=== PATIENT | male | born 1955 | race African-American/Black ===

== ENCOUNTER 2017-08-31 18:36 | Inpatient (IN) | payer MEDICAID ==
[~2017-08-31] VITALS: Ht 190.5 cm; Wt 145.1 kg
[2017-08-31 00:30] VITALS: BP 164/86
[2017-08-31 19:30] VITALS: BP 125/77
[2017-08-31 20:17] LABS: BASOPHILS % (AUTO) 2.5 % (0.0-2.0); EOSINOPHILS % (AUTO) 15.1 % (0.0-3.0); HEMATOCRIT 47.8 % (42.0-52.0); HEMOGLOBIN 14.1 G/DL (14.2-18.0); LYMPHOCYTES % (AUTO) 28.8 % (20.0-45.0); MEAN CORPUSCULAR VOLUME 82 FL (80-99); MONOCYTES % (AUTO) 10.7 % (1.0-10.0); NEUTROPHILS % (AUTO) 42.9 % (45.0-75.0); PLATELET COUNT 219 K/UL (150-450); RED BLOOD COUNT 5.81 M/UL (4.70-6.10); RED CELL DISTRIBUTION WIDTH 14.3 % (11.6-14.8); WHITE BLOOD COUNT 6.3 K/UL (4.8-10.8)
[2017-08-31 20:30] VITALS: BP 126/70
[2017-08-31] MEDS ORDERED: ZOFRAN ODT4 MG ORAL (20:39)
[2017-08-31 21:00] LABS: ANION GAP 11 mmol/L (5-15); BLOOD UREA NITROGEN 48 mg/dL (7-18); CALCIUM 9.6 MG/DL (8.5-10.1); CARBON DIOXIDE 30 MMOL/L (21-32); CHLORIDE 94 MMOL/L (98-107); POTASSIUM 4.6 MMOL/L (3.5-5.1); SODIUM 135 MMOL/L (136-145)
[2017-08-31 21:08] LABS: ALANINE AMINOTRANSFERASE 27 U/L (12-78); ALBUMIN 3.5 G/DL (3.4-5.0); ALBUMIN/GLOBULIN RATIO 0.7 (1.0-2.7); ALKALINE PHOSPHATASE 86 U/L (46-116); ASPARTATE AMINO TRANSFERASE 26 U/L (15-37); BILIRUBIN,TOTAL 0.4 MG/DL (0.2-1.0)
--- NOTE | 2017-08-31 21:17 | Emergency Room Report ---
History of Present Illness General Chief Complaint: General Complaint Source: Patient Present Illness HPI 62-year-old male presents with intractable nausea vomiting. For 3-4 days Pt reports n/v >5 episodes of nbnb vomiting, no diarrhea. no constipation Denies fever, chills. Had a history of appendectomy No hx of endoscopies/colonoscopies. States that he went to [facility] yesterday he was seen in ER and was discharged even though patient states that he kept having nausea and vomiting Allergies: Coded Allergies: PENICILLINS (Verified Allergy, Unknown, 08/31/17) TRAMADOL (Verified Allergy, Unknown, 08/31/17) Patient History Past Medical History: see triage record Past Surgical History: none Pertinent Family History: none Reviewed Nursing Documentation: PMH: Agreed, PSxH: Agreed Nursing Documentation-PMH Past Medical History: No History, Except For Hx Hypertension: Yes Hx Asthma: Yes Review of Systems All Other Systems: negative except mentioned in HPI Physical Exam Vital Signs Date Time Temp Pulse Resp B/P (MAP) Pulse Ox O2 Delivery O2 Flow Rate FiO2 08/31/17 18:46 98.1 76 18 125/77 96 Room Air Sp02 EP Interpretation: reviewed, normal General Appearance: alert, GCS 15, non-toxic, moderate distress Head: normocephalic, atraumatic Eyes: bilateral eye normal inspection, bilateral eye PERRL, bilateral eye EOMI ENT: normal ENT inspection, normal pharynx, normal voice, moist mucus membranes Neck: normal inspection, full range of motion, supple Respiratory: normal inspection, lungs clear, normal breath sounds, no respiratory distress, no retraction, no wheezing, speaking full sentences, chest symmetrical Cardiovascular #1: normal inspection, regular rate, rhythm, no edema, normal capillary refill Cardiovascular #2: 2+ radial (R), 2+ radial (L) Gastrointestinal: normal inspection, non tender, soft, non-distended, no guarding Genitourinary: no CVA tenderness Musculoskeletal: normal inspection, back normal, normal range of motion, non- tender Neurologic: normal inspection, alert, oriented x3, responsive, motor strength/ tone normal, sensory intact, normal gait, speech normal Psychiatric: normal inspection, judgement/insight normal, memory normal Skin: normal inspection, normal color, no rash, warm/dry, well hydrated, normal turgor Medical Decision Making Diagnostic Impression: Primary Impression: Intractable nausea and vomiting Additional Impressions: Pancreatitis Renal failure ER Course 62-year-old male with abdominal pain nausea and vomiting Differential Diagnosis: Gastritis, gastroenteritis, pancreatitis, cholecystitis, appendicitis, diverticulitis, UTI/pyelo At this time abdomen is soft nontender, not likely to have acute intra- abdominal surgical pathology, will hold CT for now. Plan: Basic labs, ua, ekg Pepcid, maalox, pain control, IVF ER course: Patient has remained HD stable during ED stay. Given Zofran and fluids Continue some nausea Increasing lipase, 495, when discharged [facility] it was 70 Renal failure Disposition: Patient will be admitted to med surg. DW Dr Finch Please note that this Emergency Department Report was dictated using [employer] mixing machine operator technology software, occasionally this can lead to erroneous entry secondary to interpretation by the dictation equipment EKG Diagnostic Results EP Interpretation: Yes Rate: normal Rhythm: NSR ST Segments: No acute changes ASA given to patient: No Laboratory Tests Test 08/31/17 19:50 White Blood Count 6.3 K/UL (4.8-10.8) Red Blood Count 5.81 M/UL (4.70-6.10) Hemoglobin 14.1 G/DL (14.2-18.0) L Hematocrit 47.8 % (42.0-52.0) Mean Corpuscular Volume 82 FL (80-99) Mean Corpuscular Hemoglobin 24.3 PG (27.0-31.0) L Mean Corpuscular Hemoglobin Concent 29.6 G/DL (32.0-36.0) L Red Cell Distribution Width 14.3 % (11.6-14.8) Platelet Count 219 K/UL (150-450) Mean Platelet Volume 7.6 FL (6.5-10.1) Neutrophils (%) (Auto) 42.9 % (45.0-75.0) L Lymphocytes (%) (Auto) 28.8 % (20.0-45.0) Monocytes (%) (Auto) 10.7 % (1.0-10.0) H Eosinophils (%) (Auto) 15.1 % (0.0-3.0) H Basophils (%) (Auto) 2.5 % (0.0-2.0) H Sodium Level 135 MMOL/L (136-145) L Potassium Level 4.6 MMOL/L (3.5-5.1) Chloride Level 94 MMOL/L (98-107) L Carbon Dioxide Level 30 MMOL/L (21-32) Anion Gap 11 mmol/L (5-15) Blood Urea Nitrogen 48 mg/dL (7-18) H Creatinine 3.0 MG/DL (0.55-1.30) H Estimate Glomerular Filtration Rate 25.7 mL/min (>60) Glucose Level 109 MG/DL (74-106) H Calcium Level 9.6 MG/DL (8.5-10.1) Total Bilirubin 0.4 MG/DL (0.2-1.0) Aspartate Amino Transferase (AST) 26 U/L (15-37) Alanine Aminotransferase (ALT) 27 U/L (12-78) Alkaline Phosphatase 86 U/L (46-116) Troponin I 0.013 ng/mL (0.000-0.056) Total Protein 8.8 G/DL (6.4-8.2) H Albumin 3.5 G/DL (3.4-5.0) Globulin 5.3 g/dL Albumin/Globulin Ratio 0.7 (1.0-2.7) L Lipase 495 U/L (73-393) H Last Vital Signs Date Time Temp Pulse Resp B/P (MAP) Pulse Ox O2 Delivery O2 Flow Rate FiO2 08/31/17 18:46 98.1 76 18 125/77 96 Room Air Disposition: ADMITTED INPATIENT Condition: Serious Scripts Ondansetron Odt* (ZOFRAN ODT*) 4 Mg Tab.rapdis 4 MG ORAL Q6H Y for Nausea & Vomiting, #15 TAB 0 Refills Prov: Roque Marquis M.D. 08/31/17 Patient Instructions: Nausea and Vomiting, Adult, [id number] Additional Instructions: PLEASE FOLLOW UP WITH GASTROENTEROLOGY IN 1 WEEK Roque Marquis M.D. Aug 31, 2017 21:17
[2017-08-31 22:30] VITALS: BP 122/70
[2017-08-31 23:12] LABS: APPEARANCE,URINE CLEAR; BILIRUBIN, URINE NEGATIVE (NEGATIVE); COLOR,URINE PALE YELLOW; GLUCOSE, URINE (UA) NEGATIVE (NEGATIVE); KETONES,URINE 1+ (NEGATIVE); LEUKOCYTE ESTERASE ,URINE NEGATIVE (NEGATIVE); NITRITE,URINE NEGATIVE (NEGATIVE); PH,URINE 5 (4.5-8.0); PROTEIN,URINE 2+ (NEGATIVE); UROBILINOGEN,URINE NORMAL MG/DL (0.0-1.0)
[2017-08-31] MEDS ORDERED: BENAZEPRIL HCL10 MG ORAL (23:31)
[2017-08-31] MEDS ORDERED: SIMVASTATIN10 MG ORAL (23:31)
[2017-08-31] MEDS ORDERED: ASPIRIN81 MG ORAL (23:31)
[2017-08-31] MEDS ORDERED: SINGULAIR10 MG ORAL (23:31)
[2017-08-31] MEDS ORDERED: PERCOCET 5-3251 EACH ORAL (23:31)
[2017-09-01 00:05] VITALS: BP 126/72
[2017-09-01] MEDS ORDERED: HYDROmorphone 1mg/ml Carpuject IVP PRN (01:30)
[2017-09-01] MEDS: D5 1/2NS 1,000 ML IV SCH ×3 (02:31→18:06)
[2017-09-01 04:00] VITALS: BP 168/85
[2017-09-01] MEDS ORDERED: Piperacillin/Tazobactam 3.375 GM in D5W 110 ML IVPB SCH (06:00)
[2017-09-01 08:00] VITALS: BP 151/59
[2017-09-01 08:28] LABS: BASOPHILS % (AUTO) 2.1 % (0.0-2.0); EOSINOPHILS % (AUTO) 16.8 % (0.0-3.0); HEMATOCRIT 40.1 % (42.0-52.0); HEMOGLOBIN 12.8 G/DL (14.2-18.0); LYMPHOCYTES % (AUTO) 35.4 % (20.0-45.0); MEAN CORPUSCULAR VOLUME 81 FL (80-99); MONOCYTES % (AUTO) 9.4 % (1.0-10.0); NEUTROPHILS % (AUTO) 36.2 % (45.0-75.0); PLATELET COUNT 198 K/UL (150-450); RED BLOOD COUNT 4.95 M/UL (4.70-6.10); RED CELL DISTRIBUTION WIDTH 14.6 % (11.6-14.8); WHITE BLOOD COUNT 5.5 K/UL (4.8-10.8)
[2017-09-01 08:49] LABS: ALANINE AMINOTRANSFERASE 22 U/L (12-78); ALBUMIN 3.1 G/DL (3.4-5.0); ALBUMIN/GLOBULIN RATIO 0.6 (1.0-2.7); ALKALINE PHOSPHATASE 83 U/L (46-116); AMYLASE 275 U/L (25-115); ASPARTATE AMINO TRANSFERASE 23 U/L (15-37); BILIRUBIN,TOTAL 0.3 MG/DL (0.2-1.0); BLOOD UREA NITROGEN 35 mg/dL (7-18); CALCIUM 9.4 MG/DL (8.5-10.1); CARBON DIOXIDE 30 MMOL/L (21-32); CHLORIDE 99 MMOL/L (98-107); CREATININE 1.6 MG/DL (0.55-1.30); POTASSIUM 4.4 MMOL/L (3.5-5.1)
[2017-09-01 08:54] LABS: SODIUM 136 MMOL/L (136-145)
[2017-09-01] MEDS: Heparin 5000 units/ml inj SUBQ SCH ×2 (09:00→21:00)
[2017-09-01] MEDS: Aspirin Baby 81mg ORAL SCH (11:54)
[2017-09-01] MEDS: Benazepril 10mg tab ORAL SCH (11:54)
[2017-09-01 12:00] VITALS: BP 132/65
--- NOTE | 2017-09-01 12:56 | Diagnostic Imaging Report ---
Indication: Abdominal pain Technique: CT of the abdomen and pelvis utilizing automated exposure control without intravenous contrast. CT dose: Total DLP 1121.62 mGycm; CTDI vol 19.51 mGy Comparison: None Findings: Note that evaluation of the abdominal and pelvic viscera is limited without the use of intravenous contrast. Within these limitations, the following observations are made: Multiple subcentimeter nodular densities/tree-in-bud opacification noted in the lower lungs, most dense in the right lower lobe. Multiple oval subcentimeter nodules noted along the fissure likely representing intrapulmonary lymph nodes. There is no pleural effusion or pneumothorax. No dense airspace consolidation identified. Heart size within normal limits. No pericardial effusion. Mild coronary arterial calcification seen. Noncontrast evaluation of the liver, gallbladder, spleen and adrenal glands is grossly unremarkable. The pancreas is uniform in attenuation. No peripancreatic fluid collection is appreciated. Multiple prominent lymph nodes noted in the retroperitoneum and the region of the celiac axis, the largest measuring up to 1.1 cm in short axis. These are thought to be reactive in etiology. Kidneys are symmetric in size. No evidence of urinary tract stones or hydronephrosis bilaterally. Bladder is decompressed, limiting its evaluation. Prostate is not enlarged. There is no bowel obstruction. No free intraperitoneal fluid or air is identified. There may be slight thickening of some proximal small bowel loops. No appreciable perienteric inflammatory change. Abdominal aorta is normal in caliber with scattered atherosclerotic calcifications. Mild degenerative changes noted in the thoracolumbar spine with minimal anterolisthesis of L4 on L5. Impression: History of pancreatitis with elevation of the pancreatic enzymes noted in the electronic medical record. No definite pancreatic inflammatory change seen on noncontrast CT. Please note contrast enhanced CT would provide a better assessment of the pancreas. Pancreatic attenuation is uniform. No peripancreatic fluid collection. Prominent retroperitoneal and peripancreatic lymph nodes, largest measuring up to 1.2 cm in short axis. Mild thickening of small bowel loops adjacent to the pancreas. These findings may be reactive given history of pancreatitis. No evidence of bowel obstruction. No evidence of cholelithiasis on CT. Subcentimeter nodular densities with suggestion of tree-in-bud opacification in the lower lungs, most pronounced in the right lower lobe. These findings are likely infectious or inflammatory etiology. Given history of vomiting, aspiration should be considered. No dense consolidation. Additional findings as above. The CT scanner at [facility] is accredited by the [employer] and the scans are performed using protocols designed to limit radiation exposure to as low as reasonably achievable to attain images of sufficient resolution adequate for diagnostic evaluation.
[2017-09-01 16:00] VITALS: BP 129/74
--- NOTE | 2017-09-01 16:45 | History and Physical Report ---
DATE OF ADMISSION: 08/31/2017 CHIEF COMPLAINT: Pancreatitis. HISTORY OF PRESENT ILLNESS: The patient is a 62-year-old male, has a history of hypertension, who was admitted with complaints of intractable abdominal pain, nausea, and vomiting. According to the patient, he was well until a week prior to admission when developed worsening abdominal pain. He actually presented to an outside hospital. He states he had an x-ray that was negative. He was sent home. He continued to have abdominal pain, intermittent nausea and vomiting. On evaluation in the emergency room here, his vitals were stable. Labs showed acute renal failure with a creatinine of 3. He also has an elevated lipase. In light of the patient's persistent nausea, vomiting, and acute renal failure, he is now admitted for further evaluation and care. PAST MEDICAL HISTORY: As above. PAST SURGICAL HISTORY: Includes ankle surgery. CURRENT MEDICATIONS: Reconciled and reviewed. ALLERGIES: and tramadol. FAMILY HISTORY: Noncontributory. SOCIAL HISTORY: There is no known history of tobacco, ethanol, or drugs. REVIEW OF SYSTEMS: Negative except for abdominal pain, nausea, and vomiting. PHYSICAL EXAMINATION: VITAL SIGNS: Temperature 98 degrees, blood pressure 168/85, pulse 60, and respirations 20. GENERAL: The patient is well developed, no apparent distress. HEART: Regular rate and rhythm. LUNGS: Clear. ABDOMEN: Soft, nontender, and nondistended. EXTREMITIES: Without clubbing, cyanosis, or edema. LABORATORY DATA: Sodium 135, potassium 4.6, creatinine was 3, and BUN 48. Lipase is 495. ASSESSMENT: This is an elderly male, admitted with complaints of abdominal pain possibly secondary to pancreatitis, although enzymes did not markedly elevated. PLAN: IV fluids, NPO, IV hydration, check a CT scan of the abdomen and a renal ultrasound, hydration, monitor renal function. We will reassess for p.o. once tests are reviewed. Omid Finch M.D. DR: MORAIMA JOB#: [id number] CC:
[2017-09-01 20:00] VITALS: BP 137/55
[2017-09-01] MEDS: Montelukast 10mg tablet ORAL SCH (20:54)
[2017-09-02] VITALS: BP 146/90
[2017-09-02] MEDS: D5 1/2NS 1,000 ML IV SCH ×3 (01:41→20:59)
[2017-09-02 04:00] VITALS: BP 133/84
[2017-09-02 08:45] VITALS: BP 144/73
--- NOTE | 2017-09-02 08:50 | General Progress Note ---
Assessment/Plan Problem List: (1) Pancreatitis ICD Codes: K85.90 - Acute pancreatitis without necrosis or infection, unspecified SNOMED: 96571285 (2) Renal failure ICD Codes: N19 - Unspecified kidney failure SNOMED: 07805430 Status: stable, progressing Assessment/Plan ivf po trial monitor labs Subjective ROS Limited/Unobtainable: No Constitutional: Reports: malaise, weakness HEENT: Reports: no symptoms Cardiovascular: Reports: no symptoms Respiratory: Reports: no symptoms Gastrointestinal/Abdominal: Reports: nausea Genitourinary: Reports: no symptoms Neurologic/Psychiatric: Reports: pre-existing deficit Endocrine: Reports: no symptoms Hematologic/Lymphatic: Reports: no symptoms Allergies: Coded Allergies: PENICILLINS (Verified Allergy, Unknown, 08/31/17) TRAMADOL (Verified Allergy, Unknown, 08/31/17) All Systems: reviewed and negative except above Subjective mild nausea. no abd pain. ct negative for pancreatitis. some small bowel thickening- ?reactive due to pancreatitis Objective Last 24 Hour Vital Signs Date Time Temp Pulse Resp B/P (MAP) Pulse Ox O2 Delivery O2 Flow Rate FiO2 09/02/17 04:00 98.2 62 21 133/84 97 09/02/17 00:00 97.5 51 22 146/90 97 09/01/17 20:00 98.3 57 21 137/55 95 09/01/17 16:00 97.5 59 20 129/74 100 Room Air 09/01/17 14:30 97.5 09/01/17 12:00 97.5 64 18 132/65 98 Room Air 09/01/17 11:54 168/85 Intake and Output 09/01/17 09/02/17 19:00 07:00 Intake Total 750 ml 1375 ml Output Total 1000 ml Balance 750 ml 375 ml Intake IV Total 750 ml 1375 ml Output Urine Total 1000 ml # Bowel Movements 1 Height (Feet): 6 Height (Inches): 3.00 Weight (Pounds): 320 General Appearance: WD/WN Neck: supple Cardiovascular: regular rhythm Respiratory/Chest: lungs clear Abdomen: normal bowel sounds, non tender, soft, no organomegaly Neurologic: distribution lead II-XII grossly normal, no motor/sensory deficits, alert, oriented x 3 JERRY GUAMAN Sep 02, 2017 08:50
[2017-09-02] MEDS: Heparin 5000 units/ml inj SUBQ SCH ×2 (09:00→20:59)
[2017-09-02] MEDS: Aspirin Baby 81mg ORAL SCH (10:01)
[2017-09-02] MEDS: Benazepril 10mg tab ORAL SCH (10:01)
[2017-09-02 12:00] VITALS: BP 138/73
[2017-09-02 16:00] VITALS: BP 131/53
[2017-09-02 20:00] VITALS: BP 162/70
[2017-09-02] MEDS: Montelukast 10mg tablet ORAL SCH (20:57)
[2017-09-03] VITALS: BP 140/76
[2017-09-03 04:00] VITALS: BP 150/79
[2017-09-03 08:00] VITALS: BP 188/94
[2017-09-03] MEDS: Heparin 5000 units/ml inj SUBQ SCH (09:00)
[2017-09-03] MEDS: Aspirin Baby 81mg ORAL SCH (09:57)
[2017-09-03] MEDS: Benazepril 10mg tab ORAL SCH (09:57)
[2017-09-03 10:13] LABS: ALANINE AMINOTRANSFERASE 20 U/L (12-78); ALBUMIN 2.8 G/DL (3.4-5.0); ALBUMIN/GLOBULIN RATIO 0.6 (1.0-2.7); ALKALINE PHOSPHATASE 73 U/L (46-116); ANION GAP 9 mmol/L (5-15); ASPARTATE AMINO TRANSFERASE 20 U/L (15-37); BILIRUBIN,TOTAL 0.3 MG/DL (0.2-1.0); BLOOD UREA NITROGEN 10 mg/dL (7-18); CARBON DIOXIDE 28 MMOL/L (21-32); CHLORIDE 103 MMOL/L (98-107); POTASSIUM 3.9 MMOL/L (3.5-5.1); SODIUM 140 MMOL/L (136-145)
--- NOTE | 2017-09-03 10:31 | Diagnostic Imaging Report ---
Indication:Elevated Bun and Creatinine. Technique: Grayscale and duplex Doppler imaging of the kidneys performed. Comparison: None Findings: The size, contour, and echogenicity of both kidneys are within normal limits. Right kidney is about 19. Left kidney is about 11 cm in length. There is no hydronephrosis. The IVC and urinary bladder are unremarkable. Impression: Negative study
[2017-09-03] MEDS ORDERED: NORVASC5 MG ORAL (11:30)
[2017-09-03 12:00] VITALS: BP 183/76
[2017-09-03] MEDS ORDERED: D5 1/2NS 1000ml IV ONE (14:54)
--- NOTE | 2017-09-04 04:00 | Discharge Summary ---
DATE OF ADMISSION: 08/31/2017 DATE OF DISCHARGE: 09/03/2017 ADMISSION DIAGNOSES: 1. Pancreatitis. 2. Intractable nausea and vomiting. 3. Hypertension. 4. Acute renal failure. DISCHARGE DIAGNOSES: 1. Pancreatitis. 2. Intractable nausea and vomiting. 3. Hypertension. 4. Acute renal failure. BRIEF HISTORY: The patient is a pleasant male admitted with complaints of intractable nausea and vomiting. He was diagnosed with pancreatitis. He had acute renal failure. He was hydrated. He was initially kept NPO. His lipase normalized. His abdominal pain resolved. On discharge, he was tolerating p.o. DISCHARGE MEDICATIONS: Please see discharge medication list for discharge medications. DIET: Cardiac diet. ACTIVITY: Ad-yaakov. FOLLOWUP: The patient will follow up by his PMD in one to two weeks. Omid Finch M.D. DR: MORAIMA JOB#: [id number] CC:
--- NOTE | 2017-09-05 14:37 | Cardiology Report ---
APPROVED REPORT EKG Measurement Heart [id number] Normal sinus rhythm Normal ECG
== END 2017-09-03 14:55 | disposition home or self-care (01) | DRG 282 ==
LOC: EMR 21:56 → EDBEDREQ 22:12 → ENRESERV 22:26 → 4E 22:57
DX: K85.90 Acute pancreatitis without necrosis or infection, unspecified (principal); N17.9 Acute kidney failure, unspecified; I10 Essential (primary) hypertension
CPT/HCPCS: 36415; 74176; 76775; 80053; 81003; 82150; 83690; 84484; 85025; 87081; 93005; 99285; J2405

== ENCOUNTER 2018-03-30 10:32 | Inpatient (IN) | payer MEDICAID ==
[~2018-03-30] VITALS: Ht 190.5 cm; Wt 132.8 kg
[~2018-03-30 10:32] MED LIST: ASPIRIN81 MG ORAL; BENAZEPRIL HCL10 MG ORAL; NORVASC5 MG ORAL; PERCOCET 5-3251 EACH ORAL; SIMVASTATIN10 MG ORAL; SINGULAIR10 MG ORAL; ZOFRAN ODT4 MG ORAL
[2018-03-30 10:45] VITALS: BP 147/63
[2018-03-30] MEDS ORDERED: FUROSEMIDE40 MG ORAL (10:55)
[2018-03-30] MEDS ORDERED: BENAZEPRIL HCL20 MG ORAL (10:55)
[2018-03-30] MEDS ORDERED: Albuterol ud Inhalation HHN ONE (11:30)
[2018-03-30] MEDS ORDERED: Ipratropium 0.02% Inh Soln 2.5ml UD HHN ONE (11:30)
[2018-03-30 11:41] LABS: EOSINOPHILS % (AUTO) 9.1 % (0.0-3.0); HEMATOCRIT 34.6 % (42.0-52.0); HEMOGLOBIN 10.5 G/DL (14.2-18.0); LYMPHOCYTES % (AUTO) 25.1 % (20.0-45.0); MEAN CORPUSCULAR VOLUME 80 FL (80-99); MONOCYTES % (AUTO) 14.3 % (1.0-10.0); NEUTROPHILS % (AUTO) 49.4 % (45.0-75.0); PLATELET COUNT 189 K/UL (150-450); RED BLOOD COUNT 4.33 M/UL (4.70-6.10); RED CELL DISTRIBUTION WIDTH 14.1 % (11.6-14.8); WHITE BLOOD COUNT 7.3 K/UL (4.8-10.8)
[2018-03-30 11:56] LABS: ANION GAP 9 mmol/L (5-15); BLOOD UREA NITROGEN 34 mg/dL (7-18); CALCIUM 9.5 MG/DL (8.5-10.1); CARBON DIOXIDE 29 MMOL/L (21-32); CHLORIDE 104 MMOL/L (98-107); CREATININE 1.2 MG/DL (0.55-1.30); POTASSIUM 4.5 MMOL/L (3.5-5.1); SODIUM 142 MMOL/L (136-145)
[2018-03-30 12:06] LABS: ALANINE AMINOTRANSFERASE 25 U/L (12-78); ALBUMIN 2.9 G/DL (3.4-5.0); ALBUMIN/GLOBULIN RATIO 0.6 (1.0-2.7); ALKALINE PHOSPHATASE 92 U/L (46-116); ASPARTATE AMINO TRANSFERASE 17 U/L (15-37); BILIRUBIN,TOTAL 0.3 MG/DL (0.2-1.0); CKMB 0.9 NG/ML (0.0-3.6); CREATINE KINASE 131 U/L (26-308)
[2018-03-30 12:34] VITALS: BP 139/68
--- NOTE | 2018-03-30 12:37 | Diagnostic Imaging Report ---
EXAM: XR Chest, 1 View CLINICAL HISTORY: SOB TECHNIQUE: Frontal view of the chest. COMPARISON: No relevant prior studies available. FINDINGS: Lungs: Mild streaky opacity medial right lower lung may be a developing infiltrate. Pleural space: Unremarkable. No pneumothorax. Heart: Unremarkable. No cardiomegaly. Mediastinum: Unremarkable. Bones/joints: Unremarkable. Other findings: IMPRESSION: Mild streaky opacity medial right lower lung may be a developing infiltrate.
--- NOTE | 2018-03-30 14:51 | Emergency Room Report ---
History of Present Illness General Chief Complaint: Edema Present Illness HPI Patient is a 62-year-old male brought in by EMS after increased difficulty breathing or productive cough.The patient was having increased cough for the past 2 weeks. He has prior history of asthma. Patient had also had prior history of the diuretic use. The patient had the been having subjective fever as well as increased difficulty with breathing. He reports having recent travel from [place]. He reports having bilateral increased leg pain and swelling. He normally takes Lasix however this had not been improving swelling.Patient states he has been having increased weight. Allergies: Coded Allergies: PENICILLINS (Verified Allergy, Unknown, 08/31/17) TRAMADOL (Verified Allergy, Unknown, 08/31/17) Patient History Past Medical History: see triage record Reviewed Nursing Documentation: PMH: Agreed; PSxH: Agreed Nursing Documentation-PMH Hx Hypertension: Yes Hx Asthma: Yes Hx Cancer: No Hx Gastrointestinal Problems: No Hx Neurological Problems: No Review of Systems All Other Systems: negative except mentioned in HPI Physical Exam Vital Signs Date Time Temp Pulse Resp B/P (MAP) Pulse Ox O2 Delivery O2 Flow Rate FiO2 03/30/18 10:35 98.5 89 18 147/63 93 Room Air 98.4 Sp02 EP Interpretation: reviewed, normal General Appearance: normal inspection, well appearing, no apparent distress, alert, GCS 15, obese Head: atraumatic ENT: normal ENT inspection, hearing grossly normal, normal voice Neck: normal inspection, full range of motion, supple, no bony tend Respiratory: normal inspection, no retraction, wheezing Cardiovascular #1: regular rate, rhythm, edema - 3+ Gastrointestinal: normal inspection, normal bowel sounds, non tender, soft, no guarding, no hernia Genitourinary: no CVA tenderness Musculoskeletal: normal inspection, back normal, normal range of motion Neurologic: normal inspection, alert, oriented x3, responsive, chief wharfinger III-XII nml as tested, speech normal Psychiatric: normal inspection, judgement/insight normal, mood/affect normal Skin: normal inspection, normal color, no rash Medical Decision Making Diagnostic Impression: Primary Impression: Pneumonia involving right lung Additional Impressions: Asthma Dependent edema ER Course Patient presented for shortness of breath and leg swelling. Differential included but was not limited to anemia, pneumonia, pneumothorax, myocardial infarction, pericardial effusion, congestive heart failure, acidosis. Because of complexity of patient's case laboratory testing and imaging studies were ordered.The patient started on IV antibiotics as well as IV Lasix read by radiology showed developing right infiltrate consistent with early pneumonia. The patient was given IV Lasix.Dr. Anival Castle was contacted for inpatient management due to panel physician Labs Test 03/30/18 11:25 White Blood Count 7.3 K/UL (4.8-10.8) Red Blood Count 4.33 M/UL (4.70-6.10) Hemoglobin 10.5 G/DL (14.2-18.0) Hematocrit 34.6 % (42.0-52.0) Mean Corpuscular Volume 80 FL (80-99) Mean Corpuscular Hemoglobin 24.3 PG (27.0-31.0) Mean Corpuscular Hemoglobin Concent 30.4 G/DL (32.0-36.0) Red Cell Distribution Width 14.1 % (11.6-14.8) Platelet Count 189 K/UL (150-450) Mean Platelet Volume 8.7 FL (6.5-10.1) Neutrophils (%) (Auto) 49.4 % (45.0-75.0) Lymphocytes (%) (Auto) 25.1 % (20.0-45.0) Monocytes (%) (Auto) 14.3 % (1.0-10.0) Eosinophils (%) (Auto) 9.1 % (0.0-3.0) Basophils (%) (Auto) 2.0 % (0.0-2.0) Sodium Level 142 MMOL/L (136-145) Potassium Level 4.5 MMOL/L (3.5-5.1) Chloride Level 104 MMOL/L (98-107) Carbon Dioxide Level 29 MMOL/L (21-32) Anion Gap 9 mmol/L (5-15) Blood Urea Nitrogen 34 mg/dL (7-18) Creatinine 1.2 MG/DL (0.55-1.30) Estimat Glomerular Filtration Rate > 60 mL/min (>60) Glucose Level 104 MG/DL (74-106) Calcium Level 9.5 MG/DL (8.5-10.1) Total Bilirubin 0.3 MG/DL (0.2-1.0) Aspartate Amino Transf (AST/SGOT) 17 U/L (15-37) Alanine Aminotransferase (ALT/SGPT) 25 U/L (12-78) Alkaline Phosphatase 92 U/L (46-116) Total Creatine Kinase 131 U/L (26-308) Creatine Kinase MB 0.9 NG/ML (0.0-3.6) Creatine Kinase MB Relative Index 0.6 Troponin I 0.000 ng/mL (0.000-0.056) Pro-B-Type Natriuretic Peptide 50 pg/mL (0-125) Total Protein 8.0 G/DL (6.4-8.2) Albumin 2.9 G/DL (3.4-5.0) Globulin 5.1 g/dL Albumin/Globulin Ratio 0.6 (1.0-2.7) Lipase 96 U/L (73-393) EKG Diagnostic Results Rate: normal Rhythm: NSR ST Segments: no acute changes Last Vital Signs Date Time Temp Pulse Resp B/P (MAP) Pulse Ox O2 Delivery O2 Flow Rate FiO2 03/30/18 12:34 70 20 139/68 98 Room Air 03/30/18 10:45 98.4 98.4 Status: unchanged Disposition: ADMITTED INPATIENT Condition: Serious Referrals: NON PHYSICIAN (PCP) Otto Metcalf MD Mar 30, 2018 14:51
[2018-03-30 15:00] VITALS: BP 132/70
[2018-03-30] MEDS ORDERED: Azithromycin 500 MG in D5W 275 ML IVPB ONE (15:00)
[2018-03-30] MEDS ORDERED: Albuterol/Ipratropium 3ml neb HHN ONE (15:00)
[2018-03-30 16:00] VITALS: BP 112/53
[2018-03-30] MEDS: Albuterol/Ipratropium 3ml neb HHN SCH ×2 (19:50→23:14)
[2018-03-30 20:00] VITALS: BP 120/77
[2018-03-30] MEDS: oxyCODONE HCL/Acetaminophen 5/325mg ORAL PRN (21:42)
[2018-03-30] MEDS: Heparin 5000 units/ml inj SUBQ SCH ×2 (21:48→21:52)
[2018-03-30] MEDS: cefTRIAXone 1 GM in D5W 55 ML IVPB SCH (21:56)
[2018-03-31] VITALS: BP 104/53
[2018-03-31] MEDS: Albuterol/Ipratropium 3ml neb HHN SCH ×5 (02:32→19:38)
[2018-03-31 04:00] VITALS: BP 120/74
[2018-03-31] MEDS: Heparin 5000 units/ml inj SUBQ SCH ×3 (05:55→21:04)
[2018-03-31 08:00] VITALS: BP 121/74
[2018-03-31] MEDS: oxyCODONE HCL/Acetaminophen 5/325mg ORAL PRN ×3 (09:15→21:06)
[2018-03-31] MEDS: cefTRIAXone 1 GM in D5W 55 ML IVPB SCH (09:15)
[2018-03-31 09:34] LABS: % IRON SATURATION 18 % (15-50); IRON 47 ug/dL (50-175); TOTAL IRON BINDING CAPACITY 256 ug/dL (250-450)
--- NOTE | 2018-03-31 10:30 | Diagnostic Imaging Report ---
Clinical Indication: Difficulty breathing and productive cough, fever Technique: Spiral acquisitions obtained through the chest. No IV contrast utilized, per referring physician request. Multiplanar reconstructions generated. Total dose length product 1066.95 mGycm. CTDIvol(s) 29.55 mGy. Dose reduction achieved using automated exposure control Comparison: Chest radiograph 03/30/2018 Findings:Multiple scattered somewhat focal areas of groundglass opacity are seen throughout both lungs. Multiple sub-5 mm nodules, mostly subpleural, are seen bilaterally. No effusions, masses, or dense consolidation demonstrated. There is mediastinal lymphadenopathy. Nodes measure up to 26 mm long axis dimension. There is likely hilar lymphadenopathy, although this is difficult to assess in the absence of IV contrast. No axillary or chest wall mass or adenopathy demonstrated. The included thyroid appears unremarkable. There is mild bilateral gynecomastia. The bones are unremarkable. The included upper abdominal anatomy is unremarkable. Impression: Scattered focal areas of groundglass opacity throughout both lungs. These are nonspecific, could represent areas of pulmonary edema, infection, or noninfectious inflammatory infiltrates, among other possibilities Multiple bilateral sub-5 mm nodules. Most likely postinflammatory nodules, but acute inflammation or metastatic deposits also possible Mediastinal lymphadenopathy, possible hilar lymphadenopathy. This could be reactive or neoplastic Other findings as noted The CT scanner at [facility] is accredited by the [employer] and the scans are performed using protocols designed to limit radiation exposure to as low as reasonably achievable to attain images of sufficient resolution adequate for diagnostic evaluation.
[2018-03-31 12:00] VITALS: BP 115/68
[2018-03-31] MEDS ORDERED: Milk of Magnesia 30ml Ud ORAL SCH (12:00)
[2018-03-31 14:21] VITALS: BP 122/62
[2018-03-31] MEDS ORDERED: Azithromycin 500 MG in D5W 275 ML IV SCH (15:00)
--- NOTE | 2018-03-31 15:51 | Diagnostic Imaging Report ---
Indication: Cough and fluid retention Technique: 2 views of the chest Comparison: A 08/07/2018 Findings: Mild interstitial prominence persists, unchanged. No effusions. Right pulmonary hilar fullness is again demonstrated. The heart size is normal. No focal airspace consolidation. Impression: Mild interstitial prominence, unchanged over one day Right hilar fullness, likely reflects adenopathy suspected on recent CT scan No significant interim change
[2018-03-31 19:41] VITALS: BP 101/64
[2018-04-01] VITALS: BP 120/59
[2018-04-01] MEDS: Albuterol/Ipratropium 3ml neb HHN SCH ×7 (00:02→23:40)
[2018-04-01] MEDS: oxyCODONE HCL/Acetaminophen 5/325mg ORAL PRN ×4 (03:26→21:35)
[2018-04-01 04:00] VITALS: BP 112/61
[2018-04-01] MEDS: Heparin 5000 units/ml inj SUBQ SCH ×3 (06:00→21:37)
[2018-04-01 07:15] LABS: EOSINOPHILS % (AUTO) 14.6 % (0.0-3.0); HEMATOCRIT 33.4 % (42.0-52.0); HEMOGLOBIN 10.7 G/DL (14.2-18.0); MEAN CORPUSCULAR VOLUME 80 FL (80-99); MONOCYTES % (AUTO) 16.8 % (1.0-10.0); NEUTROPHILS % (AUTO) 20.6 % (45.0-75.0); PLATELET COUNT 189 K/UL (150-450); RED BLOOD COUNT 4.18 M/UL (4.70-6.10); RED CELL DISTRIBUTION WIDTH 14.1 % (11.6-14.8); WHITE BLOOD COUNT 4.7 K/UL (4.8-10.8)
[2018-04-01 07:37] LABS: ALANINE AMINOTRANSFERASE 21 U/L (12-78); ALBUMIN 2.6 G/DL (3.4-5.0); ALBUMIN/GLOBULIN RATIO 0.5 (1.0-2.7); ALKALINE PHOSPHATASE 88 U/L (46-116); ANION GAP 5 mmol/L (5-15); ASPARTATE AMINO TRANSFERASE 17 U/L (15-37); BILIRUBIN,TOTAL 0.2 MG/DL (0.2-1.0); BLOOD UREA NITROGEN 25 mg/dL (7-18); CALCIUM 8.9 MG/DL (8.5-10.1); CARBON DIOXIDE 31 MMOL/L (21-32); CHLORIDE 103 MMOL/L (98-107); CREATININE 1.1 MG/DL (0.55-1.30); POTASSIUM 4.8 MMOL/L (3.5-5.1); SODIUM 139 MMOL/L (136-145)
[2018-04-01 08:00] VITALS: BP 125/59
[2018-04-01] MEDS: cefTRIAXone 1 GM in D5W 55 ML IVPB SCH (08:27)
--- NOTE | 2018-04-01 10:52 | History and Physical Report ---
DATE OF ADMISSION: 03/30/2018 REASON FOR ADMISSION: Edema. HISTORY OF PRESENT ILLNESS: This is a 62-year-old male, who was brought into the hospital by ambulance because of increasing shortness of breath and productive cough. This has been going on for 2 weeks. He also has known history of asthma and has chronic leg swelling for which he is on diuretic therapy. The patient has noted some subjective fevers and difficulty lying flat. He recently was in [place], but has not had any other ill contacts that he knows of. His leg swelling has increased to some degree and he has not responded to his usual dose of furosemide. ALLERGIES: Include tramadol and penicillin. PAST MEDICAL HISTORY: Includes hypertension and asthma. FAMILY HISTORY: Not contributory. SOCIAL HISTORY: Positive for smoking. No alcohol or substance abuse. REVIEW OF SYSTEMS: A 10-point review of systems performed. All systems negative other than noted above. The patient has had a prior abdominal CT at this facility which revealed some nodular densities in the right lung base. PHYSICAL EXAMINATION: GENERAL: Moderately obese. Mild respiratory distress. VITAL SIGNS: Blood pressure 147/63, pulse 89, respiratory rate 18, afebrile, oxygen saturation 93% on room air. HEENT: Conjunctivae pink. Oropharynx clear. No thrush. No exudate. NECK: Supple. No adenopathy. Jugular venous pressure grossly normal. LUNGS: Diminished breath sounds. Few scattered rhonchi. No wheezing. CARDIAC: Regular rhythm and rate. Normal S1, S2 with a fourth heart sound. ABDOMEN: Obese, soft, and nontender. EXTREMITIES: With 2 to 3+ pitting edema with stasis dermatologic changes. NEUROLOGIC: Nonfocal. LABORATORY DATA: White count 7.3, hemoglobin 10.5. EKG with no acute process. Pro-natriuretic peptide is 50. BUN 34, creatinine 1.2, sodium 142, potassium 4.5, bicarbonate 29, MCV is 80. Chest x-ray reveals right-sided infiltrate. IMPRESSION: 1. Right lobar pneumonia. 2. History of lung nodules. 3. Leg edema suggestive of chronic venous insufficiency. 4. Hypertension. 5. Bronchospastic lung disease. 6. Microcytic anemia. PLAN: Panculture. Broad-spectrum antibiotics. Bronchodilators. Respiratory hygiene. CT scan of the chest. Anemia workup including iron panel and stool occult blood tests. Check thyroid function. DVT prophylaxis. Echocardiogram. Further recommendations to follow. Anival Castle M.D. DR: Janis JOB#: [id number] CC:
--- NOTE | 2018-04-01 10:57 | Progress Note ---
DATE: 03/31/2018 CARDIOLOGY/INTERNAL MEDICINE PROGRESS NOTE SUBJECTIVE: The patient still has cough, congestion, sputum production, and some shortness of breath. No chest pain. The patient was made aware that his prior antihypertensive namely amlodipine could be contributing to his edema. OBJECTIVE: VITAL SIGNS: Blood pressure 101/64, pulse 63, respiratory rate 17, afebrile, room air oxygen saturation 94% to 99%. LUNGS: Coarse breath sounds with rhonchi. HEART: Regular rhythm and rate. Normal S1, S2. ABDOMEN: Soft, obese. EXTREMITIES: With 2+ dependent edema. LABORATORY AND DIAGNOSTIC DATA: Iron panel notable for percent saturation of 18% with total iron-binding of 47. CAT scan of the chest is notable for subpleural nodule, mediastinal lymphadenopathy, neoplastic versus reactive must be considered, and ground-glass opacities throughout the lungs. IMPRESSION: 1. Acute bronchitis and possible pneumonitis. 2. Pulmonary nodularity, infectious versus neoplastic. 3. Moderate protein-calorie malnutrition. 4. Hypertensive heart disease. 5. Anemia of chronic disease. PLAN: 1. Antimicrobials. 2. Respiratory hygiene. 3. Bronchodilators. 4. Avoid amlodipine. 5. Continue cautious diuresis. 6. Trend natriuretic peptide assay. 7. DVT prophylaxis. 8. Pulmonary consultation to follow. Anival Castle M.D. : Janis JOB#: [id number] CC:
[2018-04-01 12:00] VITALS: BP 114/63
[2018-04-01] MEDS ORDERED: Milk of Magnesia 30ml Ud ORAL PRN ×2 (12:00)
[2018-04-01] MEDS: Azithromycin 500 MG in D5W 275 ML IV SCH (15:23)
[2018-04-01 16:00] VITALS: BP 118/62
--- NOTE | 2018-04-01 19:26 | Consultation ---
Consult Note Consult Note 62-year-old male,admitted with increasing shortness of breath and productive cough, ongoing on for 2 weeks. Patient notes worsening peripheral edema. Patient was recently in [place], but has been seeing MDs at [facility]. Patient has been on outpatient diuretics without improvement. He was admitted and underwent a CT chest and I was called to evaluate. patient denies sputum production or hemoptysis. Patient denies chest pain ALLERGIES: reviewed PAST MEDICAL HISTORY: peripheral edema, hypertension and asthma. FAMILY HISTORY: Not contributory to the above. SOCIAL HISTORY: admits to smoking; unemployed REVIEW OF SYSTEMS: A 10-point review of systems performed. PHYSICAL EXAMINATION: WDWN NAD reduced breath sounds bilaterally without rhonchi or wheeze [id number] without RG; soft sys murmur NABS nontender obese no CC; 2+ edema obese nonfocal LABORATORY DATA: Labs Test 03/30/18 11:25 03/30/18 15:00 03/31/18 07:32 03/31/18 15:45 White Blood Count 7.3 K/UL (4.8-10.8) Red Blood Count 4.33 M/UL (4.70-6.10) Hemoglobin 10.5 G/DL (14.2-18.0) Hematocrit 34.6 % (42.0-52.0) Mean Corpuscular Volume 80 FL (80-99) Mean Corpuscular Hemoglobin 24.3 PG (27.0-31.0) Mean Corpuscular Hemoglobin Concent 30.4 G/DL (32.0-36.0) Red Cell Distribution Width 14.1 % (11.6-14.8) Platelet Count 189 K/UL (150-450) Mean Platelet Volume 8.7 FL (6.5-10.1) Neutrophils (%) (Auto) 49.4 % (45.0-75.0) Lymphocytes (%) (Auto) 25.1 % (20.0-45.0) Monocytes (%) (Auto) 14.3 % (1.0-10.0) Eosinophils (%) (Auto) 9.1 % (0.0-3.0) Basophils (%) (Auto) 2.0 % (0.0-2.0) Sodium Level 142 MMOL/L (136-145) Potassium Level 4.5 MMOL/L (3.5-5.1) Chloride Level 104 MMOL/L (98-107) Carbon Dioxide Level 29 MMOL/L (21-32) Anion Gap 9 mmol/L (5-15) Blood Urea Nitrogen 34 mg/dL (7-18) Creatinine 1.2 MG/DL (0.55-1.30) Estimat Glomerular Filtration Rate > 60 mL/min (>60) Glucose Level 104 MG/DL (74-106) Calcium Level 9.5 MG/DL (8.5-10.1) Total Bilirubin 0.3 MG/DL (0.2-1.0) Aspartate Amino Transf (AST/SGOT) 17 U/L (15-37) Alanine Aminotransferase (ALT/SGPT) 25 U/L (12-78) Alkaline Phosphatase 92 U/L (46-116) Total Creatine Kinase 131 U/L (26-308) Creatine Kinase MB 0.9 NG/ML (0.0-3.6) Creatine Kinase MB Relative Index 0.6 Troponin I 0.000 ng/mL (0.000-0.056) Pro-B-Type Natriuretic Peptide 50 pg/mL (0-125) Total Protein 8.0 G/DL (6.4-8.2) Albumin 2.9 G/DL (3.4-5.0) Globulin 5.1 g/dL Albumin/Globulin Ratio 0.6 (1.0-2.7) Lipase 96 U/L (73-393) Lactic Acid Level 0.90 mmol/L (0.4-2.0) Iron Level 47 ug/dL (50-175) Total Iron Binding Capacity 256 ug/dL (250-450) Percent Iron Saturation 18 % (15-50) Unsaturated Iron Binding 209 ug/dL (112-346) Stool Occult Blood Negative (NEGATIVE) Test 04/01/18 06:00 White Blood Count 4.7 K/UL (4.8-10.8) Red Blood Count 4.18 M/UL (4.70-6.10) Hemoglobin 10.7 G/DL (14.2-18.0) Hematocrit 33.4 % (42.0-52.0) Mean Corpuscular Volume 80 FL (80-99) Mean Corpuscular Hemoglobin 25.6 PG (27.0-31.0) Mean Corpuscular Hemoglobin Concent 32.1 G/DL (32.0-36.0) Red Cell Distribution Width 14.1 % (11.6-14.8) Platelet Count 189 K/UL (150-450) Mean Platelet Volume 8.4 FL (6.5-10.1) Neutrophils (%) (Auto) 20.6 % (45.0-75.0) Lymphocytes (%) (Auto) 46.0 % (20.0-45.0) Monocytes (%) (Auto) 16.8 % (1.0-10.0) Eosinophils (%) (Auto) 14.6 % (0.0-3.0) Basophils (%) (Auto) 2.0 % (0.0-2.0) Sodium Level 139 MMOL/L (136-145) Potassium Level 4.8 MMOL/L (3.5-5.1) Chloride Level 103 MMOL/L (98-107) Carbon Dioxide Level 31 MMOL/L (21-32) Anion Gap 5 mmol/L (5-15) Blood Urea Nitrogen 25 mg/dL (7-18) Creatinine 1.1 MG/DL (0.55-1.30) Estimat Glomerular Filtration Rate > 60 mL/min (>60) Glucose Level 97 MG/DL (74-106) Calcium Level 8.9 MG/DL (8.5-10.1) Magnesium Level 2.1 MG/DL (1.8-2.4) Total Bilirubin 0.2 MG/DL (0.2-1.0) Aspartate Amino Transf (AST/SGOT) 17 U/L (15-37) Alanine Aminotransferase (ALT/SGPT) 21 U/L (12-78) Alkaline Phosphatase 88 U/L (46-116) Pro-B-Type Natriuretic Peptide 315 pg/mL (0-125) Total Protein 7.4 G/DL (6.4-8.2) Albumin 2.6 G/DL (3.4-5.0) Globulin 4.8 g/dL Albumin/Globulin Ratio 0.5 (1.0-2.7) IMPRESSION: 1. possible pneumonia. 2. Pulmonary nodules. 3. chronic venous insufficiency. 4. Hypertension. 5. Asthma. 6. Microcytic anemia. 7. acute renal failure 8. abnormal CT likely residual edema vs viral infection with associated subcent nodules with reactive lymphadenopathy PLAN diurese monitor CT chest IV antibiotics and may convert to PO next 1-2 days will call his [facility] MD and confirm prior CT if any at present, provide respiratory management and would need outpatient CT monitoring oxygen as needed cards therapy noted impression, plan, and exam edited and reviewed in detail care discussed with Chandra Heaton MD Apr 01, 2018 19:26
[2018-04-01 20:00] VITALS: BP 111/65
[2018-04-02] VITALS: BP 113/58
[2018-04-02] MEDS: Albuterol/Ipratropium 3ml neb HHN SCH ×6 (03:02→23:42)
[2018-04-02 04:00] VITALS: BP 122/65
[2018-04-02] MEDS: oxyCODONE HCL/Acetaminophen 5/325mg ORAL PRN ×3 (04:02→21:24)
--- NOTE | 2018-04-02 05:02 | Progress Note ---
DATE: 04/01/2018 CARDIOLOGY/INTERNAL MEDICINE PROGRESS NOTE SUBJECTIVE: The patient still has productive cough. Sputum is brownish. He is less short of breath. Leg swelling is diminishing. OBJECTIVE: VITAL SIGNS: Blood pressure 111/65, pulse 61, respiratory rate 21, afebrile, and room air oxygen saturation 97%. LUNGS: Coarse breath sounds with rhonchi. HEART: Regular rhythm and rate. Normal S1 and S2 with no murmur. ABDOMEN: Obese. EXTREMITIES: With 1 to 2+ dependent pitting edema. LABORATORY DATA: White count 4.7 and hemoglobin 10.7. Potassium 4.8, magnesium 2.1, BUN 25, creatinine 1.1, pro natriuretic peptide 315, and albumin 2.6. IMPRESSION: 1. Acute on chronic diastolic congestive heart failure. 2. Healthcare-acquired pneumonia. 3. Pulmonary infiltrates and nodularities. 4. Chronic venous insufficiency. 5. Obesity. PLAN: 1. Continue diuresis. 2. Continue current antimicrobials. 3. Respiratory hygiene. 4. Await sputum cultures. 5. Inhaled bronchodilators. 6. DVT prophylaxis. 7. Pulmonary consult appreciated with attempts to obtain old records for comparison ____ scan with possible need for follow up CAT scan once clinical parameters improve. Anival Castle M.D. DR: TERENCE JOB#: [id number] CC:
[2018-04-02] MEDS: Heparin 5000 units/ml inj SUBQ SCH ×3 (05:35→21:24)
[2018-04-02 08:00] VITALS: BP 135/60
[2018-04-02] MEDS: cefTRIAXone 1 GM in D5W 55 ML IVPB SCH (09:41)
[2018-04-02 12:00] VITALS: BP 144/79
--- NOTE | 2018-04-02 14:50 | Pulmonology Progress Note ---
Assessment/Plan Assessment/Plan IMPRESSION: 1. possible pneumonia. 2. Pulmonary nodules. 3. chronic venous insufficiency. 4. Hypertension. 5. Asthma. 6. Microcytic anemia. 7. acute renal failure 8. abnormal CT likely residual edema vs viral infection with associated subcent nodules with reactive lymphadenopathy PLAN diurese monitor CT chest on follow up IV antibiotics and may convert to PO in am message left for his [facility] MD and confirm prior CT if any maintain respiratory management and would need outpatient CT monitoring oxygen as needed cards therapy noted impression, plan, and exam edited and reviewed in detail care discussed with RN Subjective Allergies: Coded Allergies: PENICILLINS (Verified Allergy, Unknown, 08/31/17) TRAMADOL (Verified Allergy, Unknown, 08/31/17) Subjective message left to Dr Kovacs [phone] awaiting call back Objective Last 24 Hour Vital Signs Date Time Temp Pulse Resp B/P (MAP) Pulse Ox O2 Delivery O2 Flow Rate FiO2 04/02/18 12:25 97.1 04/02/18 12:00 97.5 57 21 144/79 (100) 97 97.5 04/02/18 11:55 78 18 99 Room Air 04/02/18 11:49 73 18 97 Room Air 04/02/18 11:26 97.1 04/02/18 10:55 67 18 96 Room Air 04/02/18 10:55 67 18 96 Room Air 04/02/18 09:42 135/60 04/02/18 09:00 Room Air 04/02/18 08:00 97.1 66 20 135/60 (85) 95 97.1 04/02/18 04:00 97.0 69 20 122/65 (84) 97 97.0 04/02/18 03:13 82 18 97 Room Air 04/02/18 03:02 63 18 94 Room Air 04/02/18 00:00 97.8 63 20 113/58 (76) 100 97.8 04/01/18 23:50 84 19 98 Room Air 04/01/18 23:40 75 17 97 Room Air 21 04/01/18 21:00 Room Air 04/01/18 20:00 98.1 61 21 111/65 (80) 97 98.1 04/01/18 18:59 82 19 98 Room Air 04/01/18 18:49 75 17 97 Room Air 21 04/01/18 16:00 98.0 19 20 118/62 (80) 97 98.0 04/01/18 15:30 98.2 04/01/18 15:30 81 19 100 Room Air 21 04/01/18 15:20 80 17 98 Room Air 21 Intake and Output 04/01/18 04/02/18 19:00 07:00 Intake Total 500 ml Output Total 1600 ml 1750 ml Balance -1100 ml -1750 ml Intake Oral 500 ml Output Urine Total 1600 ml 1750 ml Objective WDWN NAD reduced breath sounds bilaterally without rhonchi or wheeze [id number] without MRG NABS nontender obese no CC; brawny edema nonfocal Microbiology Date/Time Source Procedure Growth Status 03/30/18 15:15 Blood Blood Culture - Preliminary NO GROWTH AFTER 48 HOURS Resulted 03/30/18 15:00 Blood Blood Culture - Preliminary NO GROWTH AFTER 48 HOURS Resulted 03/31/18 06:00 Sputum Gram Stain - Final Complete 03/31/18 06:00 Sputum Sputum Culture - Final NORMAL UPPER RESPIRATORY DAVIN PRESENT Complete Current Medications Medications (Trade) Dose Ordered Sig/Virgen Route PRN Reason Start Time Stop Time Status Last Admin Dose Admin Albuterol/ Ipratropium (Albuterol/ Ipratropium) 3 ml Q4HRT HHN 03/31/18 23:00 04/04/18 18:59 04/02/18 11:49 Azithromycin 500 mg/Dextrose 275 ml @ 275 mls/hr Q24H IV 04/01/18 15:00 04/07/18 14:59 04/01/18 15:23 Benazepril HCl (Lotensin) 40 mg DAILY ORAL 04/01/18 09:00 04/30/18 11:59 04/02/18 09:42 Ceftriaxone Sodium 1 gm/ Dextrose 55 ml @ 110 mls/hr DAILY IVPB 04/01/18 09:00 04/06/18 21:59 04/02/18 09:41 Furosemide (Lasix) 40 mg DAILY IV 04/01/18 09:00 04/30/18 11:59 04/02/18 09:00 Heparin Sodium (Porcine) (Heparin 5000 units/ml) 5,000 units EVERY 8 HOURS SUBQ 03/31/18 22:00 04/29/18 21:59 Magnesium Hydroxide (Mom) 30 ml DAILYPRN PRN ORAL Constipation 04/01/18 12:00 05/01/18 11:59 Oxycodone/ Acetaminophen (Percocet 5-325) 1 tab Q6H PRN ORAL For Pain 03/31/18 21:30 04/06/18 21:29 04/02/18 11:26 Chandra Lantigua MD Apr 02, 2018 14:50
[2018-04-02] MEDS: Azithromycin 500 MG in D5W 275 ML IV SCH (15:21)
[2018-04-02 16:00] VITALS: BP 129/69
[2018-04-02 20:00] VITALS: BP 135/79
--- NOTE | 2018-04-02 23:36 | Diagnostic Imaging Report ---
APPROVED REPORT CPT Code: 65269 Present Symptoms Comments: BILATERAL LEGS PAIN. BILATERAL: Imaging reveals a patent deep venous system bilaterally. There is no evidence of thrombus within the femoral, popliteal or tibial segments. The greater saphenous veins are also within normal limits. Doppler indicates normal spontaneous flow within these segments.
[2018-04-03] VITALS: BP 123/61
--- NOTE | 2018-04-03 00:45 | Progress Note ---
DATE: 04/02/2018 CARDIOLOGY AND INTERNAL MEDICINE PROGRESS NOTE SUBJECTIVE: The patient has less congestion and cough. Still notes swelling and some shortness of breath. OBJECTIVE: VITAL SIGNS: Blood pressure 144/79, pulse 57, respiratory rate 21, afebrile, and room air oxygen saturations are adequate at 95% to 99%. LUNGS: Coarse breath sounds with rhonchi. CARDIAC: Regular rhythm and rate. Normal S1, S2. ABDOMEN: Soft. EXTREMITIES: 1+ dependent edema. IMPRESSION: Improved. PLAN: 1. Continue antimicrobials. 2. Diuresis. 3. Follow up laboratory studies. 4. Await response from [facility] primary care physician regarding prior CT scan. 5. Further considerations for pulmonary diagnostic workup to follow based on clinical course. Anival Castle M.D. DR: CAMILLA JOB#: [id number] CC:
[2018-04-03] MEDS: Albuterol/Ipratropium 3ml neb HHN SCH ×6 (03:28→23:13)
[2018-04-03] MEDS: oxyCODONE HCL/Acetaminophen 5/325mg ORAL PRN ×3 (03:41→20:31)
[2018-04-03 04:00] VITALS: BP 126/71
[2018-04-03] MEDS: Heparin 5000 units/ml inj SUBQ SCH ×3 (05:29→22:00)
[2018-04-03 06:50] LABS: BASOPHILS % (AUTO) 1.8 % (0.0-2.0); EOSINOPHILS % (AUTO) 17.1 % (0.0-3.0); HEMATOCRIT 36.3 % (42.0-52.0); HEMOGLOBIN 11.3 G/DL (14.2-18.0); LYMPHOCYTES % (AUTO) 41.9 % (20.0-45.0); MEAN CORPUSCULAR VOLUME 80 FL (80-99); MONOCYTES % (AUTO) 15.5 % (1.0-10.0); NEUTROPHILS % (AUTO) 23.8 % (45.0-75.0); PLATELET COUNT 224 K/UL (150-450); RED BLOOD COUNT 4.54 M/UL (4.70-6.10); WHITE BLOOD COUNT 4.2 K/UL (4.8-10.8)
[2018-04-03 07:24] LABS: ALANINE AMINOTRANSFERASE 22 U/L (12-78); ALBUMIN 2.9 G/DL (3.4-5.0); ALBUMIN/GLOBULIN RATIO 0.6 (1.0-2.7); ALKALINE PHOSPHATASE 102 U/L (46-116); ANION GAP 2 mmol/L (5-15); ASPARTATE AMINO TRANSFERASE 17 U/L (15-37); BILIRUBIN,TOTAL 0.2 MG/DL (0.2-1.0); BLOOD UREA NITROGEN 33 mg/dL (7-18); CALCIUM 9.4 MG/DL (8.5-10.1); CARBON DIOXIDE 32 MMOL/L (21-32); CHLORIDE 103 MMOL/L (98-107); CREATININE 1.1 MG/DL (0.55-1.30); POTASSIUM 4.7 MMOL/L (3.5-5.1); SODIUM 137 MMOL/L (136-145)
[2018-04-03 08:00] VITALS: BP 130/64
[2018-04-03] MEDS: cefTRIAXone 1 GM in D5W 55 ML IVPB SCH (09:25)
--- NOTE | 2018-04-03 10:39 | Pulmonology Progress Note ---
Assessment/Plan Assessment/Plan IMPRESSION: 1. possible pneumonia. 2. Pulmonary nodules. 3. chronic venous insufficiency. 4. Hypertension. 5. Asthma. 6. Microcytic anemia. 7. acute renal failure 8. abnormal CT likely residual edema vs viral infection with associated subcent nodules with reactive lymphadenopathy PLAN diurese per cards monitor CT chest after dc IV antibiotics and may convert to PO message left for his [facility] MD and confirm prior CT if any maintain respiratory management and would need outpatient CT monitoring oxygen as needed- stable cards therapy noted impression, plan, and exam edited and reviewed in detail care discussed with RN Subjective Allergies: Coded Allergies: PENICILLINS (Verified Allergy, Unknown, 08/31/17) TRAMADOL (Verified Allergy, Unknown, 08/31/17) Subjective message left to Dr Kovacs [phone] but no return call awaiting call back patient comfortable Objective Last 24 Hour Vital Signs Date Time Temp Pulse Resp B/P (MAP) Pulse Ox O2 Delivery O2 Flow Rate FiO2 04/03/18 09:25 130/64 04/03/18 08:00 98.6 71 20 130/64 (86) 95 98.6 04/03/18 07:46 71 20 99 Room Air 21 04/03/18 07:37 69 20 96 Room Air 04/03/18 04:00 97.5 61 20 126/71 (89) 95 97.5 04/03/18 03:38 78 18 99 Room Air 21 04/03/18 03:28 70 18 96 Room Air 04/03/18 00:00 97.0 67 20 123/61 (81) 100 97.0 04/02/18 23:52 71 18 99 Room Air 21 04/02/18 23:42 83 20 97 Room Air 04/02/18 21:00 Room Air 04/02/18 20:05 85 18 98 Room Air 21 04/02/18 20:00 98.1 77 20 135/79 (97) 98 98.1 04/02/18 19:55 76 18 97 Room Air 04/02/18 16:58 79 18 99 Room Air 21 04/02/18 16:45 79 18 98 Room Air 04/02/18 16:00 97.3 65 21 129/69 (89) 97 97.3 04/02/18 12:25 97.1 04/02/18 12:00 97.5 57 21 144/79 (100) 97 97.5 04/02/18 11:55 78 18 99 Room Air 21 04/02/18 11:49 73 18 97 Room Air 04/02/18 11:26 97.1 04/02/18 10:55 67 18 96 Room Air 04/02/18 10:55 67 18 96 Room Air 21 Intake and Output 04/02/18 04/03/18 19:00 07:00 Intake Total 1050 ml Output Total 1000 ml Balance 1050 ml -1000 ml Intake Oral 720 ml IV Total 330 ml Output Urine Total 1000 ml # Voids 3 6 # Bowel Movements 2 Objective WDWN NAD reduced breath sounds bilaterally without rhonchi or wheeze [id number] without MRG NABS nontender obese no CC; brawny edema nonfocal Laboratory Tests 04/03/18 06:10: White Blood Count 4.2L, Red Blood Count 4.54L, Hemoglobin 11.3L, Hematocrit 36.3L, Mean Corpuscular Volume 80, Mean Corpuscular Hemoglobin 24.8L, Mean Corpuscular Hemoglobin Concent 31.1L, Red Cell Distribution Width 14.0, Platelet Count 224, Mean Platelet Volume 8.4, Neutrophils (%) (Auto) 23.8L, Lymphocytes (%) (Auto) 41.9, Monocytes (%) (Auto) 15.5H, Eosinophils (%) (Auto) 17.1H, Basophils (%) (Auto) 1.8, Sodium Level 137, Potassium Level 4.7, Chloride Level 103, Carbon Dioxide Level 32, Anion Gap 2L, Blood Urea Nitrogen 33H, Creatinine 1.1, Estimat Glomerular Filtration Rate > 60, Glucose Level 97, Calcium Level 9.4, Magnesium Level 2.2, Total Bilirubin 0.2, Aspartate Amino Transf (AST/SGOT) 17, Alanine Aminotransferase (ALT/SGPT) 22, Alkaline Phosphatase 102, Pro-B-Type Natriuretic Peptide 90, Total Protein 7.7, Albumin 2.9L, Globulin 4.8, Albumin/Globulin Ratio 0.6L Current Medications Medications (Trade) Dose Ordered Sig/Virgen Route PRN Reason Start Time Stop Time Status Last Admin Dose Admin Albuterol/ Ipratropium (Albuterol/ Ipratropium) 3 ml Q4HRT HHN 03/31/18 23:00 04/04/18 18:59 04/03/18 07:35 Azithromycin 500 mg/Dextrose 275 ml @ 275 mls/hr Q24H IV 04/01/18 15:00 04/07/18 14:59 04/02/18 15:21 Benazepril HCl (Lotensin) 40 mg DAILY ORAL 04/01/18 09:00 04/30/18 11:59 04/03/18 09:25 Ceftriaxone Sodium 1 gm/ Dextrose 55 ml @ 110 mls/hr DAILY IVPB 04/01/18 09:00 04/06/18 21:59 04/03/18 09:25 Furosemide (Lasix) 40 mg DAILY IV 04/01/18 09:00 04/30/18 11:59 04/03/18 09:25 Heparin Sodium (Porcine) (Heparin 5000 units/ml) 5,000 units EVERY 8 HOURS SUBQ 03/31/18 22:00 04/29/18 21:59 Magnesium Hydroxide (Mom) 30 ml DAILYPRN PRN ORAL Constipation 04/01/18 12:00 05/01/18 11:59 Oxycodone/ Acetaminophen (Percocet 5-325) 1 tab Q6H PRN ORAL For Pain 03/31/18 21:30 04/06/18 21:29 04/03/18 10:15 Chandra Lantigua MD Apr 03, 2018 10:39
[2018-04-03 12:00] VITALS: BP 130/72
[2018-04-03] MEDS: Azithromycin 500 MG in D5W 275 ML IV SCH (14:32)
[2018-04-03 15:40] VITALS: BP 127/86
[2018-04-03 20:00] VITALS: BP 121/64
[2018-04-04] VITALS: BP 123/70
[2018-04-04] MEDS: oxyCODONE HCL/Acetaminophen 5/325mg ORAL PRN ×4 (02:30→21:37)
--- NOTE | 2018-04-04 02:30 | Progress Note ---
DATE: 04/03/2018 CARDIOLOGY AND INTERNAL MEDICINE PROGRESS NOTE SUBJECTIVE: Less congestion, cough, and shortness of breath. Leg swelling is better. OBJECTIVE: VITAL SIGNS: Blood pressure 130/64, pulse 71, respirations 20, and no fevers. LUNGS: Few rhonchi. HEART: Regular rhythm and rate. Normal S1, S2. ABDOMEN: Soft. EXTREMITIES: 1+ bilaterally. LABORATORY DATA: White count 4.2 and hemoglobin 11.3. Potassium 4.7, BUN 33, and creatinine 1.1. Magnesium 2.9. IMPRESSION: Improved. PLAN: 1. Continue antibiotics. 2. Recheck chest x-ray. 3. Decrease diuretics. 4. Await follow-up call from primary care physician regarding prior CT results. We will need to repeat CT in 3 months for comparison if not sooner. Anival Castle M.D. DR: MAN JOB#: [id number] CC:
[2018-04-04] MEDS: Albuterol/Ipratropium 3ml neb HHN SCH ×4 (03:19→15:40)
[2018-04-04 04:00] VITALS: BP 121/64
[2018-04-04] MEDS: Heparin 5000 units/ml inj SUBQ SCH ×3 (06:00→20:36)
[2018-04-04 07:03] LABS: BASOPHILS % (AUTO) 2.5 % (0.0-2.0); EOSINOPHILS % (AUTO) 16.4 % (0.0-3.0); HEMATOCRIT 35.8 % (42.0-52.0); HEMOGLOBIN 11.2 G/DL (14.2-18.0); MEAN CORPUSCULAR VOLUME 80 FL (80-99); MONOCYTES % (AUTO) 16.1 % (1.0-10.0); NEUTROPHILS % (AUTO) 21.9 % (45.0-75.0); PLATELET COUNT 213 K/UL (150-450); RED BLOOD COUNT 4.51 M/UL (4.70-6.10); RED CELL DISTRIBUTION WIDTH 14.1 % (11.6-14.8); WHITE BLOOD COUNT 4.4 K/UL (4.8-10.8)
[2018-04-04 07:13] LABS: ALANINE AMINOTRANSFERASE 27 U/L (12-78); ALBUMIN 2.7 G/DL (3.4-5.0); ALBUMIN/GLOBULIN RATIO 0.6 (1.0-2.7); ALKALINE PHOSPHATASE 98 U/L (46-116); ANION GAP 3 mmol/L (5-15); ASPARTATE AMINO TRANSFERASE 20 U/L (15-37); BILIRUBIN,TOTAL 0.2 MG/DL (0.2-1.0); BLOOD UREA NITROGEN 31 mg/dL (7-18); CALCIUM 9.5 MG/DL (8.5-10.1); CARBON DIOXIDE 31 MMOL/L (21-32); CHLORIDE 103 MMOL/L (98-107); POTASSIUM 4.6 MMOL/L (3.5-5.1); SODIUM 137 MMOL/L (136-145)
[2018-04-04 08:00] VITALS: BP 123/70
[2018-04-04] MEDS: cefTRIAXone 1 GM in D5W 55 ML IVPB SCH (09:36)
[2018-04-04 12:00] VITALS: BP 121/59
--- NOTE | 2018-04-04 12:46 | Pulmonology Progress Note ---
Assessment/Plan Assessment/Plan IMPRESSION: 1. possible pneumonia vs pneumonitis 2. Pulmonary nodules. 3. chronic venous insufficiency. 4. Hypertension. 5. Asthma. 6. Microcytic anemia. 7. acute renal failure 8. abnormal CT likely residual edema vs viral infection with associated subcent nodules with reactive lymphadenopathy PLAN diurese per cards monitor CT chest after dc PO antibiotics Advair and Spiriva outpatient pft maintain respiratory management and would need outpatient CT monitoring oxygen as needed- stable cards therapy noted impression, plan, and exam edited and reviewed in detail care discussed with RN Subjective Allergies: Coded Allergies: PENICILLINS (Verified Allergy, Unknown, 08/31/17) TRAMADOL (Verified Allergy, Unknown, 08/31/17) Subjective d/w Dr Kovacs [phone] but no return call no CT prior found has COPD Objective Last 24 Hour Vital Signs Date Time Temp Pulse Resp B/P (MAP) Pulse Ox O2 Delivery O2 Flow Rate FiO2 04/04/18 12:00 97.5 61 18 121/59 (79) 94 97.5 04/04/18 11:34 81 18 99 Room Air 21 04/04/18 11:23 71 18 95 Room Air 04/04/18 09:36 123/70 04/04/18 09:00 Room Air 04/04/18 08:00 97.7 66 18 123/70 (87) 94 97.7 04/04/18 07:47 77 18 98 Room Air 21 04/04/18 07:39 75 18 96 Room Air 04/04/18 04:00 97.7 63 18 121/64 (83) 94 97.7 04/04/18 03:27 73 18 98 Room Air 04/04/18 03:18 70 18 97 Room Air 04/04/18 00:00 97.3 76 17 123/70 (87) 97 97.3 04/03/18 23:23 70 18 98 Room Air 21 04/03/18 23:13 73 18 96 Room Air 04/03/18 21:00 Room Air 04/03/18 20:00 97.7 72 20 121/64 (83) 95 97.7 04/03/18 19:21 76 20 99 Room Air 21 04/03/18 19:12 78 18 96 Room Air 04/03/18 15:40 97.9 69 20 127/86 (100) 95 97.9 04/03/18 15:25 78 20 98 Room Air 21 04/03/18 15:17 76 22 97 Room Air 21 Intake and Output 04/03/18 04/04/18 19:00 07:00 Intake Total 900 ml 500 ml Output Total 800 ml 500 ml Balance 100 ml 0 ml Intake Oral 500 ml Other 900 ml Output Urine Total 800 ml 500 ml # Voids 4 Objective WDWN NAD reduced breath sounds bilaterally with some wheeze [id number] without MRG NABS nontender obese no CC; brawny edema nonfocal Laboratory Tests 04/04/18 05:35: White Blood Count 4.4L, Red Blood Count 4.51L, Hemoglobin 11.2L, Hematocrit 35.8L, Mean Corpuscular Volume 80, Mean Corpuscular Hemoglobin 24.7L, Mean Corpuscular Hemoglobin Concent 31.1L, Red Cell Distribution Width 14.1, Platelet Count 213, Mean Platelet Volume 7.8, Neutrophils (%) (Auto) 21.9L, Lymphocytes (%) (Auto) 43.0, Monocytes (%) (Auto) 16.1H, Eosinophils (%) (Auto) 16.4H, Basophils (%) (Auto) 2.5H, Sodium Level 137, Potassium Level 4.6, Chloride Level 103, Carbon Dioxide Level 31, Anion Gap 3L, Blood Urea Nitrogen 31H, Creatinine 1.0, Estimat Glomerular Filtration Rate > 60, Glucose Level 93, Calcium Level 9.5, Magnesium Level 2.0, Total Bilirubin 0.2, Aspartate Amino Transf (AST/SGOT) 20, Alanine Aminotransferase (ALT/SGPT) 27, Alkaline Phosphatase 98, Total Protein 7.6, Albumin 2.7L, Globulin 4.9, Albumin/Globulin Ratio 0.6L Current Medications Medications (Trade) Dose Ordered Sig/Virgen Route PRN Reason Start Time Stop Time Status Last Admin Dose Admin Albuterol/ Ipratropium (Albuterol/ Ipratropium) 3 ml Q4HRT HHN 03/31/18 23:00 04/04/18 18:59 04/04/18 11:27 Azithromycin 500 mg/Dextrose 275 ml @ 275 mls/hr Q24H IV 04/01/18 15:00 04/07/18 14:59 04/03/18 14:32 Benazepril HCl (Lotensin) 40 mg DAILY ORAL 04/01/18 09:00 04/30/18 11:59 04/04/18 09:36 Ceftriaxone Sodium 1 gm/ Dextrose 55 ml @ 110 mls/hr DAILY IVPB 04/01/18 09:00 04/06/18 21:59 04/04/18 09:36 Furosemide (Lasix) 40 mg DAILY IV 04/01/18 09:00 04/30/18 11:59 04/04/18 09:37 Heparin Sodium (Porcine) (Heparin 5000 units/ml) 5,000 units EVERY 8 HOURS SUBQ 03/31/18 22:00 04/29/18 21:59 Magnesium Hydroxide (Mom) 30 ml DAILYPRN PRN ORAL Constipation 04/01/18 12:00 05/01/18 11:59 Oxycodone/ Acetaminophen (Percocet 5-325) 1 tab Q6H PRN ORAL For Pain 03/31/18 21:30 04/06/18 21:29 04/04/18 09:37 Chandra Lantigua MD Apr 04, 2018 12:46
--- NOTE | 2018-04-04 12:51 | Diagnostic Imaging Report ---
Indication: Cough Technique: 2 views of the chest Comparison: 03/31/2018 Findings: Lungs and pleural spaces remain clear. Right hilar fullness is again demonstrated, unchanged. The heart size is normal. Impression: No acute process Right hilar fullness. Note adenopathy suspected on recent CT scan No significant change
[2018-04-04] MEDS: Azithromycin 500 MG in D5W 275 ML IV SCH (15:36)
[2018-04-04 16:00] VITALS: BP 137/62
[2018-04-04 20:00] VITALS: BP 128/60
[2018-04-04] MEDS: Advair 250/50 Inhaler - 14 dose INH SCH (22:04)
[2018-04-05] VITALS: BP 136/70
--- NOTE | 2018-04-05 00:30 | Progress Note ---
DATE: 04/04/2018 MEDICINE PROGRESS NOTE SUBJECTIVE: The patient feels better. Legs are still swollen, but significantly improved. OBJECTIVE: VITAL SIGNS: Blood pressure 128/60, pulse 69, respiratory rate 18, and afebrile. Cultures negative. LUNGS: With few rhonchi. CARDIAC: Regular. ABDOMEN: Soft. EXTREMITIES: With 1+ edema. LABORATORY DATA: White count 4.4, hemoglobin 11.2, BUN 31, creatinine 1, albumin 2.7. IMPRESSION: Abnormal CT scan may be due to infection and reactive lymphadenopathy; however, malignancy cannot be excluded. There is no record of prior CT. The patient's PMD from [facility] has yet to respond to our call. Follow up CAT scan should be planned following discharge within 2 months. The patient's edema is improving. Hypertension is well controlled. He does have a history of COPD and outpatient pulmonary function tests will be ordered. Diuresis is ongoing. Discharge planning in progress. Anival Castle M.D. DR: CAM JOB#: [id number] CC:
[2018-04-05] MEDS: oxyCODONE HCL/Acetaminophen 5/325mg ORAL PRN ×4 (03:27→21:32)
[2018-04-05 04:00] VITALS: BP 135/75
[2018-04-05] MEDS: Heparin 5000 units/ml inj SUBQ SCH ×3 (06:00→22:00)
[2018-04-05 08:00] VITALS: BP 123/61
[2018-04-05] MEDS: Advair 250/50 Inhaler - 14 dose INH SCH ×3 (09:11→21:11)
[2018-04-05] MEDS: Aspirin Baby 81mg ORAL SCH (09:41)
[2018-04-05] MEDS: cefTRIAXone 1 GM in D5W 55 ML IVPB SCH (09:42)
--- NOTE | 2018-04-05 10:55 | Pulmonology Progress Note ---
Assessment/Plan Assessment/Plan Pulmonary Progress Note Assessment/Plan IMPRESSION: 1. possible pneumonia vs pneumonitis 2. Pulmonary nodules. 3. chronic venous insufficiency. 4. Hypertension. 5. Asthma. 6. Microcytic anemia. 7. acute renal failure 8. abnormal CT likely residual edema vs viral infection with associated subcent nodules with reactive lymphadenopathy PLAN diurese per cards monitor CT chest after dc PO antibiotics Advair and Spiriva outpatient pft maintain respiratory management and would need outpatient CT monitoring oxygen as needed- stable cards therapy noted impression, plan, and exam edited and reviewed in detail care discussed with RN Subjective Allergies: Coded Allergies: PENICILLINS (Verified Allergy, Unknown, 08/31/17) TRAMADOL (Verified Allergy, Unknown, 08/31/17) Subjective d/w Dr Kovacs [phone] but no return call no CT prior found has COPD Objective Last 24 Hour Vital Signs Date Time Temp Pulse Resp B/P (MAP) Pulse Ox O2 Delivery O2 Flow Rate FiO2 04/04/18 12:00 97.5 61 18 121/59 (79) 94 97.5 04/04/18 11:34 81 18 99 Room Air 21 04/04/18 11:23 71 18 95 Room Air 04/04/18 09:36 123/70 04/04/18 09:00 Room Air 04/04/18 08:00 97.7 66 18 123/70 (87) 94 97.7 04/04/18 07:47 77 18 98 Room Air 21 04/04/18 07:39 75 18 96 Room Air 04/04/18 04:00 97.7 63 18 121/64 (83) 94 97.7 04/04/18 03:27 73 18 98 Room Air 21 04/04/18 03:18 70 18 97 Room Air 04/04/18 00:00 97.3 76 17 123/70 (87) 97 97.3 04/03/18 23:23 70 18 98 Room Air 21 04/03/18 23:13 73 18 96 Room Air 04/03/18 21:00 Room Air 04/03/18 20:00 97.7 72 20 121/64 (83) 95 97.7 04/03/18 19:21 76 20 99 Room Air 21 04/03/18 19:12 78 18 96 Room Air 04/03/18 15:40 97.9 69 20 127/86 (100) 95 97.9 8/16/18 15:25 78 20 98 Room Air 21 04/03/18 15:17 76 22 97 Room Air 21 Intake and Output 04/03/18 04/04/18 19:00 07:00 Intake Total 900 ml 500 ml Output Total 800 ml 500 ml Balance 100 ml 0 ml Intake Oral 500 ml Other 900 ml Output Urine Total 800 ml 500 ml # Voids 4 Objective WDWN NAD reduced breath sounds bilaterally with some wheeze [id number] without MRG NABS nontender obese no CC; brawny edema nonfocal Laboratory Tests 04/04/18 05:35: White Blood Count 4.4L, Red Blood Count 4.51L, Hemoglobin 11.2L, Hematocrit 35.8L, Mean Corpuscular Volume 80, Mean Corpuscular Hemoglobin 24.7L, Mean Corpuscular Hemoglobin Concent 31.1L, Red Cell Distribution Width 14.1, Platelet Count 213, Mean Platelet Volume 7.8, Neutrophils (%) (Auto) 21.9L, Lymphocytes (%) (Auto) 43.0, Monocytes (%) (Auto) 16.1H, Eosinophils (%) (Auto) 16.4H, Basophils (%) (Auto) 2.5H, Sodium Level 137, Potassium Level 4.6, Chloride Level 103, Carbon Dioxide Level 31, Anion Gap 3L, Blood Urea Nitrogen 31H, Creatinine 1.0, Estimat Glomerular Filtration Rate > 60, Glucose Level 93, Calcium Level 9.5, Magnesium Level 2.0, Total Bilirubin 0.2, Aspartate Amino Transf (AST/SGOT) 20, Alanine Aminotransferase (ALT/SGPT) 27, Alkaline Phosphatase 98, Total Protein 7.6, Albumin 2.7L, Globulin 4.9, Albumin/Globulin Ratio 0.6L CT Chest: Scattered focal areas of GG opacification, s/o Mediastinal LN Current Medications Medications (Trade) Dose Ordered Sig/Virgen Route PRN Reason Start Time Stop Time Status Last Admin Dose Admin Albuterol/ Ipratropium (Albuterol/ Ipratropium) 3 ml Q4HRT HHN 03/31/18 23:00 04/04/18 18:59 04/04/18 11:27 Azithromycin 500 mg/Dextrose 275 ml @ 275 mls/hr Q24H IV 04/01/18 15:00 04/07/18 14:59 04/03/18 14:32 Benazepril HCl (Lotensin) 40 mg DAILY ORAL 04/01/18 09:00 04/30/18 11:59 04/04/18 09:36 Ceftriaxone Sodium 1 gm/ Dextrose 55 ml @ 110 mls/hr DAILY IVPB 04/01/18 09:00 04/06/18 21:59 04/04/18 09:36 Furosemide (Lasix) 40 mg DAILY IV 04/01/18 09:00 04/30/18 11:59 04/04/18 09:37 Heparin Sodium (Porcine) (Heparin 5000 units/ml) 5,000 units EVERY 8 HOURS SUBQ 03/31/18 22:00 04/29/18 21:59 Magnesium Hydroxide (Mom) 30 ml DAILYPRN PRN ORAL Constipation 04/01/18 12:00 05/01/18 11:59 Oxycodone/ Acetaminophen (Percocet 5-325) 1 tab Q6H PRN ORAL For Pain 03/31/18 21:30 04/06/18 21:29 04/04/18 09:37 Subjective ROS Limited/Unobtainable: No Allergies: Coded Allergies: PENICILLINS (Verified Allergy, Unknown, 08/31/17) TRAMADOL (Verified Allergy, Unknown, 08/31/17) Objective Last 24 Hour Vital Signs Date Time Temp Pulse Resp B/P (MAP) Pulse Ox O2 Delivery O2 Flow Rate FiO2 04/05/18 09:47 97.5 04/05/18 09:41 123/61 04/05/18 09:07 77 20 99 Nasal Cannula 2.0 28 04/05/18 09:07 78 20 99 Nasal Cannula 2.0 28 04/05/18 09:05 77 20 99 Nasal Cannula 2.0 28 04/05/18 09:05 77 20 99 Nasal Cannula 2.0 28 04/05/18 04:00 97.5 60 18 135/75 (95) 93 97.5 04/05/18 00:00 97.7 69 18 136/70 (92) 98 97.7 04/04/18 22:01 73 20 100 Nasal Cannula 2.0 28 04/04/18 22:01 71 20 100 Nasal Cannula 2.0 28 04/04/18 21:57 71 20 100 Nasal Cannula 2.0 28 04/04/18 21:57 70 20 100 Nasal Cannula 2.0 28 04/04/18 21:00 Room Air 04/04/18 20:00 97.4 69 18 128/60 (82) 100 97.4 04/04/18 19:50 69 18 Nasal Cannula 2.0 28 04/04/18 16:00 97.8 67 18 137/62 (87) 94 97.8 04/04/18 15:45 75 18 99 Room Air 21 04/04/18 15:35 75 18 95 Nasal Cannula 2.0 28 04/04/18 12:00 97.5 61 18 121/59 (79) 94 97.5 04/04/18 11:34 81 18 99 Room Air 21 04/04/18 11:23 71 18 95 Room Air Intake and Output 04/04/18 04/05/18 19:00 07:00 Intake Total 1000 ml 300 ml Output Total 2200 ml Balance 1000 ml -1900 ml Intake Oral 300 ml Other 1000 ml Output Urine Total 2200 ml Current Medications Medications (Trade) Dose Ordered Sig/Virgen Route PRN Reason Start Time Stop Time Status Last Admin Dose Admin Aspirin (ASA) 81 mg DAILY ORAL 04/05/18 09:00 05/05/18 08:59 04/05/18 09:41 Azithromycin 500 mg/Dextrose 275 ml @ 275 mls/hr Q24H IV 04/01/18 15:00 04/07/18 14:59 04/04/18 15:36 Benazepril HCl (Lotensin) 40 mg DAILY ORAL 04/01/18 09:00 04/30/18 11:59 04/05/18 09:41 Ceftriaxone Sodium 1 gm/ Dextrose 55 ml @ 110 mls/hr DAILY IVPB 04/01/18 09:00 04/06/18 21:59 04/05/18 09:42 Furosemide (Lasix) 40 mg DAILY IV 04/01/18 09:00 04/30/18 11:59 04/05/18 09:40 Heparin Sodium (Porcine) (Heparin 5000 units/ml) 5,000 units EVERY 8 HOURS SUBQ 03/31/18 22:00 04/29/18 21:59 Magnesium Hydroxide (Mom) 30 ml DAILYPRN PRN ORAL Constipation 04/01/18 12:00 05/01/18 11:59 Oxycodone/ Acetaminophen (Percocet 5-325) 1 tab Q6H PRN ORAL For Pain 03/31/18 21:30 04/06/18 21:29 04/05/18 09:47 Pravastatin Sodium (Pravachol) 20 mg BEDTIME ORAL 04/04/18 21:00 05/04/18 20:59 04/04/18 21:37 Salmeterol Xinafoate/ Fluticasone (Advair 250/50 Diskus) 1 puffs BID INH 04/04/18 18:00 05/04/18 17:59 04/05/18 09:11 Tiotropium [place] (Spiriva Inhaler) 1 puff DAILY@1000 INH 04/04/18 17:30 05/04/18 17:29 04/05/18 09:14 Anival Hsieh MD Apr 05, 2018 10:55
[2018-04-05 12:00] VITALS: BP 113/64
[2018-04-05] MEDS: Azithromycin 500 MG in D5W 275 ML IV SCH (14:30)
[2018-04-05 16:00] VITALS: BP 125/59
[2018-04-05] MEDS ORDERED: Solu-MEDROL 40mg Inj IVP SCH (18:45)
[2018-04-05] MEDS: Albuterol/Ipratropium 3ml neb HHN SCH ×2 (19:43→22:45)
[2018-04-05 20:00] VITALS: BP 123/57
[2018-04-06] VITALS: BP 133/69
[2018-04-06] MEDS: Albuterol/Ipratropium 3ml neb HHN SCH ×6 (03:22→22:44)
[2018-04-06] MEDS: oxyCODONE HCL/Acetaminophen 5/325mg ORAL PRN ×3 (03:23→17:56)
[2018-04-06 04:00] VITALS: BP 143/73
--- NOTE | 2018-04-06 04:30 | Progress Note ---
DATE: 04/05/2018 CARDIOLOGY INTERNAL MEDICINE PROGRESS NOTE SUBJECTIVE: No chest pain. No shortness of breath. Significant decrease in cough. OBJECTIVE: VITAL SIGNS: Afebrile. Stable. LUNGS: Clear. CARDIAC: Regular. ABDOMEN: Soft. EXTREMITIES: With trace edema. IMPRESSION: 1. Acute bronchitis, resolved. 2. Acute on chronic diastolic congestive heart failure, compensated. 3. Prerenal azotemia due to diuresis. 4. Abnormal chest CT, possibly due to resolving infection, but cannot exclude malignancy. PLAN: 1. Discussed with the patient. 2. Discharge plan to follow completion of antibiotics tomorrow. He will continue oral therapy as dictated without amlodipine and it may have been exacerbating lower extremity edema. He was given a copy of his CT scan report and will follow up with his [facility] physician for followup CAT scan within six weeks and possibly compare it to old CT reports if one was done in the past. The patient understands and will comply. He will return to our care should he have difficulty with followup at [facility]. Anival Castle M.D. DR: RODRIGUE JOB#: [id number] CC:
[2018-04-06] MEDS: Heparin 5000 units/ml inj SUBQ SCH ×2 (05:16→20:38)
[2018-04-06] MEDS: Advair 250/50 Inhaler - 14 dose INH SCH (07:37)
[2018-04-06 08:00] VITALS: BP 138/71
[2018-04-06] MEDS ORDERED: cefTRIAXone 1 GM in D5W 55 ML IVPB SCH (09:00)
[2018-04-06] MEDS: Aspirin Baby 81mg ORAL SCH (09:47)
[2018-04-06 12:00] VITALS: BP 139/70
[2018-04-06 16:00] VITALS: BP 127/73
[2018-04-06] MEDS ORDERED: Montelukast 10mg tablet ORAL SCH (16:30)
--- NOTE | 2018-04-06 17:30 | Progress Note ---
DATE: 04/06/2018 SUBJECTIVE: The patient has no congestion or shortness of breath. He feels weak. He thinks he may benefit from some rehabilitation therapy prior to going home. OBJECTIVE: VITAL SIGNS: Blood pressure 139/70, pulse 70, respirations 20, and afebrile. Oxygen saturation on room air 92%. NECK: Supple. LUNGS: Diminished breath sounds. No wheezing. CARDIAC: Regular rhythm and rate. Normal S1, S2. EXTREMITIES: With trace edema. IMPRESSION: 1. Functional decline. 2. Chronic pain due to degenerative disk disease. 3. Recovering bronchitis and bronchopneumonia. 4. Resolved bronchospasm. 5. Acute on chronic diastolic congestive heart failure compensated. PLAN: 1. Oral diuretics maintenance dose. 2. Continue current antihypertensives. 3. Discontinue steroids. 4. Maintain inhaled steroids and Singulair. 5. Rehabilitation revaluation for disposition. Anival Castle M.D. DR: MAN JOB#: [id number] CC:
--- NOTE | 2018-04-06 18:36 | Pulmonology Progress Note ---
Assessment/Plan Assessment/Plan Pulmonary Progress Note Assessment/Plan IMPRESSION: 1. possible pneumonia vs pneumonitis 2. Pulmonary nodules. 3. chronic venous insufficiency. 4. Hypertension. 5. Asthma. 6. Microcytic anemia. 7. acute renal failure 8. abnormal CT likely residual edema vs viral infection with associated subcent nodules with reactive lymphadenopathy PLAN diurese per cards monitor CT chest after dc PO antibiotics Advair and Spiriva Steroid taper outpatient pft maintain respiratory management and would need outpatient CT monitoring oxygen as needed- stable cards therapy noted impression, plan, and exam edited and reviewed in detail care discussed with RN Subjective Allergies: Coded Allergies: PENICILLINS (Verified Allergy, Unknown, 08/31/17) TRAMADOL (Verified Allergy, Unknown, 08/31/17) Subjective d/w Dr Kovacs [phone] but no return call no CT prior found has COPD Objective Last 24 Hour Vital Signs Date Time Temp Pulse Resp B/P (MAP) Pulse Ox O2 Delivery O2 Flow Rate FiO2 04/04/18 12:00 97.5 61 18 121/59 (79) 94 97.5 04/04/18 11:34 81 18 99 Room Air 21 04/04/18 11:23 71 18 95 Room Air 04/04/18 09:36 123/70 04/04/18 09:00 Room Air 04/04/18 08:00 97.7 66 18 123/70 (87) 94 97.7 04/04/18 07:47 77 18 98 Room Air 21 04/04/18 07:39 75 18 96 Room Air 04/04/18 04:00 97.7 63 18 121/64 (83) 94 97.7 04/04/18 03:27 73 18 98 Room Air 21 04/04/18 03:18 70 18 97 Room Air 04/04/18 00:00 97.3 76 17 123/70 (87) 97 97.3 04/03/18 23:23 70 18 98 Room Air 21 04/03/18 23:13 73 18 96 Room Air 04/03/18 21:00 Room Air 04/03/18 20:00 97.7 72 20 121/64 (83) 95 97.7 04/03/18 19:21 76 20 99 Room Air 21 04/03/18 19:12 78 18 96 Room Air 04/03/18 15:40 97.9 69 20 127/86 (100) 95 97.9 04/03/18 15:25 78 20 98 Room Air 21 04/03/18 15:17 76 22 97 Room Air 21 Intake and Output 04/03/18 04/04/18 19:00 07:00 Intake Total 900 ml 500 ml Output Total 800 ml 500 ml Balance 100 ml 0 ml Intake Oral 500 ml Other 900 ml Output Urine Total 800 ml 500 ml # Voids 4 Objective WDWN NAD reduced breath sounds bilaterally with some wheeze [id number] without MRG NABS nontender obese no CC; brawny edema nonfocal Laboratory Tests 04/04/18 05:35: White Blood Count 4.4L, Red Blood Count 4.51L, Hemoglobin 11.2L, Hematocrit 35.8L, Mean Corpuscular Volume 80, Mean Corpuscular Hemoglobin 24.7L, Mean Corpuscular Hemoglobin Concent 31.1L, Red Cell Distribution Width 14.1, Platelet Count 213, Mean Platelet Volume 7.8, Neutrophils (%) (Auto) 21.9L, Lymphocytes (%) (Auto) 43.0, Monocytes (%) (Auto) 16.1H, Eosinophils (%) (Auto) 16.4H, Basophils (%) (Auto) 2.5H, Sodium Level 137, Potassium Level 4.6, Chloride Level 103, Carbon Dioxide Level 31, Anion Gap 3L, Blood Urea Nitrogen 31H, Creatinine 1.0, Estimat Glomerular Filtration Rate > 60, Glucose Level 93, Calcium Level 9.5, Magnesium Level 2.0, Total Bilirubin 0.2, Aspartate Amino Transf (AST/SGOT) 20, Alanine Aminotransferase (ALT/SGPT) 27, Alkaline Phosphatase 98, Total Protein 7.6, Albumin 2.7L, Globulin 4.9, Albumin/Globulin Ratio 0.6L CT Chest: Scattered focal areas of GG opacification, s/o Mediastinal LN Current Medications Medications (Trade) Dose Ordered Sig/Virgen Route PRN Reason Start Time Stop Time Status Last Admin Dose Admin Albuterol/ Ipratropium (Albuterol/ Ipratropium) 3 ml Q4HRT HHN 03/31/18 23:00 04/04/18 18:59 04/04/18 11:27 Azithromycin 500 mg/Dextrose 275 ml @ 275 mls/hr Q24H IV 04/01/18 15:00 04/07/18 14:59 8/16/18 14:32 Benazepril HCl (Lotensin) 40 mg DAILY ORAL 04/01/18 09:00 04/30/18 11:59 04/04/18 09:36 Ceftriaxone Sodium 1 gm/ Dextrose 55 ml @ 110 mls/hr DAILY IVPB 04/01/18 09:00 04/06/18 21:59 04/04/18 09:36 Furosemide (Lasix) 40 mg DAILY IV 04/01/18 09:00 04/30/18 11:59 04/04/18 09:37 Heparin Sodium (Porcine) (Heparin 5000 units/ml) 5,000 units EVERY 8 HOURS SUBQ 03/31/18 22:00 04/29/18 21:59 Magnesium Hydroxide (Mom) 30 ml DAILYPRN PRN ORAL Constipation 04/01/18 12:00 05/01/18 11:59 Oxycodone/ Acetaminophen (Percocet 5-325) 1 tab Q6H PRN ORAL For Pain 03/31/18 21:30 04/06/18 21:29 04/04/18 09:37 Subjective ROS Limited/Unobtainable: No Allergies: Coded Allergies: PENICILLINS (Verified Allergy, Unknown, 08/31/17) TRAMADOL (Verified Allergy, Unknown, 08/31/17) Objective Last 24 Hour Vital Signs Date Time Temp Pulse Resp B/P (MAP) Pulse Ox O2 Delivery O2 Flow Rate FiO2 04/06/18 17:56 98.3 04/06/18 15:18 65 18 99 Nasal Cannula 2.0 28 04/06/18 15:10 73 20 92 Room Air 04/06/18 12:00 98.3 70 20 139/70 (93) 94 98.3 04/06/18 11:19 61 18 98 Nasal Cannula 2.0 28 04/06/18 11:09 60 16 98 Nasal Cannula 2.0 28 04/06/18 10:49 97.8 04/06/18 09:50 97.8 04/06/18 09:47 143/73 04/06/18 09:00 Nasal Cannula 2.0 04/06/18 08:00 97.9 70 20 138/71 (93) 96 97.9 04/06/18 07:47 68 18 99 Nasal Cannula 2.0 28 04/06/18 07:46 68 18 99 Nasal Cannula 2.0 28 04/06/18 07:46 68 18 99 Nasal Cannula 2.0 28 04/06/18 07:46 68 18 99 Nasal Cannula 2.0 28 04/06/18 07:45 68 18 99 Nasal Cannula 2.0 28 04/06/18 07:37 Nasal Cannula 2.0 28 04/06/18 07:37 67 16 97 Nasal Cannula 2.0 28 04/06/18 07:37 97 Nasal Cannula 2.0 28 04/06/18 04:00 97.8 61 18 143/73 (96) 99 97.8 04/06/18 03:25 69 20 99 Nasal Cannula 2.0 28 04/06/18 03:23 74 20 95 Nasal Cannula 2.0 04/06/18 00:00 97.9 65 18 133/69 (90) 99 97.9 04/05/18 22:52 62 20 99 Nasal Cannula 2.0 28 04/05/18 22:44 65 20 96 Nasal Cannula 2.0 28 04/05/18 21:09 69 20 97 Nasal Cannula 2.0 28 04/05/18 21:08 69 20 97 Nasal Cannula 2.0 28 04/05/18 21:00 Nasal Cannula 2.0 04/05/18 20:00 98.2 65 18 123/57 (79) 97 98.2 04/05/18 19:47 60 20 99 Nasal Cannula 2.0 28 04/05/18 19:41 67 20 97 Nasal Cannula 2.0 28 Intake and Output 04/05/18 04/06/18 19:00 07:00 Intake Total 1255 ml 640 ml Output Total 1500 ml Balance 1255 ml -860 ml Intake Oral 1200 ml 640 ml IV Total 55 ml Output Urine Total 1500 ml # Voids 8 Current Medications Medications (Trade) Dose Ordered Sig/Virgen Route PRN Reason Start Time Stop Time Status Last Admin Dose Admin Albuterol/ Ipratropium (Albuterol/ Ipratropium) 3 ml Q4HRT HHN 04/05/18 19:00 04/10/18 18:59 04/06/18 15:10 Aspirin (ASA) 81 mg DAILY ORAL 04/05/18 09:00 05/05/18 08:59 04/06/18 09:47 Benazepril HCl (Lotensin) 40 mg DAILY ORAL 04/01/18 09:00 04/30/18 11:59 04/06/18 09:47 Furosemide (Lasix) 40 mg DAILY ORAL 04/07/18 09:00 05/07/18 08:59 Heparin Sodium (Porcine) (Heparin 5000 units/ml) 5,000 units EVERY 12 HOURS SUBQ 04/06/18 21:00 05/06/18 20:59 Magnesium Hydroxide (Mom) 30 ml DAILYPRN PRN ORAL Constipation 04/01/18 12:00 05/01/18 11:59 Montelukast Sodium (Singulair) 10 mg QPM ORAL 04/06/18 16:30 05/06/18 16:29 04/06/18 17:55 Oxycodone/ Acetaminophen (Percocet 5-325) 1 tab Q8H PRN ORAL For Pain 04/06/18 15:45 04/13/18 15:44 04/06/18 17:56 Pravastatin Sodium (Pravachol) 20 mg BEDTIME ORAL 04/04/18 21:00 05/04/18 20:59 04/05/18 21:21 Salmeterol Xinafoate/ Fluticasone (Advair 250/50 Diskus) 1 puffs BID INH 04/04/18 18:00 05/04/18 17:59 04/06/18 07:37 Tiotropium [place] (Spiriva Inhaler) 1 puff DAILY@1000 INH 04/04/18 17:30 05/04/18 17:29 04/06/18 07:37 Anival Hsieh MD Apr 06, 2018 18:36
[2018-04-06 20:00] VITALS: BP 125/58
[2018-04-07] VITALS: BP 136/63
[2018-04-07] MEDS: oxyCODONE HCL/Acetaminophen 5/325mg ORAL PRN ×2 (01:45→10:12)
[2018-04-07] MEDS: Albuterol/Ipratropium 3ml neb HHN SCH ×3 (03:00→11:56)
[2018-04-07 04:00] VITALS: BP 123/55
[2018-04-07 08:00] VITALS: BP 120/71
[2018-04-07] MEDS: Advair 250/50 Inhaler - 14 dose INH SCH (08:02)
[2018-04-07] MEDS: Heparin 5000 units/ml inj SUBQ SCH (08:44)
[2018-04-07] MEDS: Aspirin Baby 81mg ORAL SCH (08:45)
[2018-04-07] MEDS ORDERED: Furosemide 40mg tab ORAL SCH (09:00)
[2018-04-07 11:50] VITALS: BP 121/71
--- NOTE | 2018-04-07 12:51 | Pulmonology Progress Note ---
Assessment/Plan Assessment/Plan IMPRESSION: 1. possible pneumonia vs pneumonitis 2. Pulmonary nodules. 3. chronic venous insufficiency. 4. Hypertension. 5. Asthma. 6. Microcytic anemia. 7. acute renal failure 8. abnormal CT likely residual edema vs viral infection with associated subcent nodules with reactive lymphadenopathy PLAN diurese per cards monitor CT chest after dc q3 months PO antibiotics ok Advair and Spiriva on dc outpatient pft on follow up maintain respiratory management and would need outpatient CT monitoring- patient aware with need to follow up oxygen as needed- stable cards therapy noted dc planning impression, plan, and exam edited and reviewed in detail care discussed with RN Subjective Allergies: Coded Allergies: PENICILLINS (Verified Allergy, Unknown, 08/31/17) TRAMADOL (Verified Allergy, Unknown, 08/31/17) Subjective d/w Dr Kovacs [phone] but no return call no CT prior found- informed patient has COPD Objective Last 24 Hour Vital Signs Date Time Temp Pulse Resp B/P (MAP) Pulse Ox O2 Delivery O2 Flow Rate FiO2 04/07/18 12:02 63 18 99 Nasal Cannula 2.0 28 04/07/18 11:54 67 18 100 Nasal Cannula 2.0 28 04/07/18 11:50 97.5 67 20 121/71 (88) 94 97.5 04/07/18 09:00 Nasal Cannula 2.0 04/07/18 08:45 120/71 04/07/18 08:06 90 18 99 Nasal Cannula 2.0 28 04/07/18 08:00 97.9 74 20 120/71 (87) 94 97.9 04/07/18 07:57 67 18 98 Nasal Cannula 2.0 28 04/07/18 07:57 Nasal Cannula 2.0 28 04/07/18 07:57 67 18 98 Nasal Cannula 2.0 28 04/07/18 07:57 67 18 98 Nasal Cannula 2.0 28 04/07/18 07:57 67 18 98 Nasal Cannula 2.0 28 04/07/18 07:57 67 18 98 Nasal Cannula 2.0 28 04/07/18 07:57 98 Nasal Cannula 2.0 28 04/07/18 04:00 97.3 63 20 123/55 (77) 94 97.3 04/07/18 03:58 Nasal Cannula 2.0 28 04/07/18 03:57 Room Air 04/07/18 00:00 97.4 65 20 136/63 (87) 94 97.4 04/06/18 22:51 75 18 99 Nasal Cannula 2.0 28 04/06/18 22:45 70 18 97 Room Air 21 04/06/18 21:38 68 18 99 Nasal Cannula 2.0 28 04/06/18 21:38 68 18 99 Nasal Cannula 2.0 28 04/06/18 21:00 Nasal Cannula 2.0 04/06/18 20:00 97.7 69 20 125/58 (80) 97 97.7 04/06/18 19:26 80 18 99 Nasal Cannula 2.0 28 04/06/18 19:20 78 20 97 Room Air 21 04/06/18 19:19 97 Nasal Cannula 2.0 28 04/06/18 19:19 Nasal Cannula 2.0 28 04/06/18 18:55 98.3 04/06/18 17:56 98.3 04/06/18 16:00 98.1 78 20 127/73 (91) 94 98.1 04/06/18 15:18 65 18 99 Nasal Cannula 2.0 28 04/06/18 15:10 73 20 92 Room Air 21 Intake and Output 04/06/18 04/07/18 19:00 07:00 Intake Total 1095 ml Output Total 2000 ml Balance 1095 ml -2000 ml Intake Oral 1040 ml IV Total 55 ml Output Urine Total 2000 ml # Voids 5 Objective WDWN NAD reduced breath sounds bilaterally with some wheeze [id number] without MRG NABS nontender obese no CC; brawny edema nonfocal Current Medications Medications (Trade) Dose Ordered Sig/Virgen Route PRN Reason Start Time Stop Time Status Last Admin Dose Admin Albuterol/ Ipratropium (Albuterol/ Ipratropium) 3 ml Q4HRT HHN 04/05/18 19:00 04/10/18 18:59 04/07/18 11:56 Aspirin (ASA) 81 mg DAILY ORAL 04/05/18 09:00 05/05/18 08:59 04/07/18 08:45 Benazepril HCl (Lotensin) 40 mg DAILY ORAL 04/01/18 09:00 04/30/18 11:59 04/07/18 08:45 Furosemide (Lasix) 40 mg DAILY ORAL 04/07/18 09:00 9/19/18 08:59 04/07/18 08:45 Heparin Sodium (Porcine) (Heparin 5000 units/ml) 5,000 units EVERY 12 HOURS SUBQ 04/06/18 21:00 05/06/18 20:59 Magnesium Hydroxide (Mom) 30 ml DAILYPRN PRN ORAL Constipation 04/01/18 12:00 05/01/18 11:59 Montelukast Sodium (Singulair) 10 mg QPM ORAL 04/06/18 16:30 05/06/18 16:29 04/06/18 17:55 Oxycodone/ Acetaminophen (Percocet 5-325) 1 tab Q8H PRN ORAL For Pain 04/06/18 15:45 04/13/18 15:44 04/07/18 10:12 Pravastatin Sodium (Pravachol) 20 mg BEDTIME ORAL 04/04/18 21:00 05/04/18 20:59 04/06/18 20:38 Salmeterol Xinafoate/ Fluticasone (Advair 250/50 Diskus) 1 puffs BID INH 04/04/18 18:00 05/04/18 17:59 04/07/18 08:02 Tiotropium [place] (Spiriva Inhaler) 1 puff DAILY@1000 INH 04/04/18 17:30 05/04/18 17:29 04/07/18 08:02 Chandra Lantigua MD Apr 07, 2018 12:51
--- NOTE | 2018-04-09 13:48 | Discharge Summary ---
Discharge Summary Discharge Summary _ DATE OF ADMISSION: 04/07/2018 DATE OF DISCHARGE: 2018 REASON FOR ADMISSION: 62 years old male with past medical history significant for asthma, hypertension , was brought in to emergency department due to increased shortness of breath and productive cough. The symptoms were ongoing for 2 weeks. Patient also reported chronic leg swelling, worsening, although he was on diuretic therapy. Patient reported subjective fevers and difficulty breathing while lying flat. He recently traveled to [place], but had no contact with sick people as he recall. Upon evaluation in emergency department vital signs were stable, except blood pressure was borderline elevated. Laboratory workup revealed no leukocytosis ,hemoglobin 10.5, hematocrit 34.6 with low MCV. EKG revealed normal sinus rhythm, no acute ischemic changes. Troponin was negative; proBNP 15 BUN 34 ,creatinine 1.2. Chest x-ray revealed mild streaky opacity in the right lower lung, possibly developing infiltrate. Patient admitted with diagnoses of probable right-sided pneumonia, asthma ,leg edema ,possible chronic venous insufficiency , microcytic anemia, bronchospastic lung disease ,hypertension, history of pulmonary nodules. CONSULTANTS: pulmonary Dr. Lantigua [facility] COURSE: Patient admitted. Patient pancultured and started on broad-spectrum antibiotics. Supplemental oxygen provided and titrated to keep pulse oximetry above 92%. Pulmonary toilet with bronchodilator provided. CT scan of the chest was ordered. DVT prophylaxis provided. Patient started on oral steroids. Pulmonology consult was requested. CT of the chest revealed scattered focal areas of ground glass opacity throughout both lungs. Multiply bilateral. 5 mm nodules. Most likely postinflammatory nodules, but acute inflammation or metastatic deposits also possible. Mediastinal lymphadenopathy noted , possible hilar lymphadenopathy, could be reactive or neoplastic. Venous duplex bilateral lower extremity was negative. Sputum culture was negative, blood culture were negative. Patient started on diuretic with close monitoring of volumes and cardiorenal parameters. Multiple attempts were made to contact patient's doctor at [facility] to compare current CT chest with previous one Unfortunately all these attempts were unsuccessful. Anemia workup was consistent with anemia of chronic disease. Hemoglobin and hematocrit were closely monitored with goal to keep hemoglobin above 7. Stool for occult blood was negative. CEA was within normal limits. Hemoglobin and hematocrit remained stable. According to vehicle service attendant , abnormal CT was likely due to residual edema versus viral infection with associated subcentimeter nodules and reactive lymphadenopathy. However, patient needs to follow-up with CT scan in 3 months. Diuretic changed to oral maintenance dose. Norvasc stopped due to possible contribution to pedal edema. . Antiplatelet therapy with aspirin was continued along with statin. Steroids and antibiotics were stopped. Patient to continue Singulair and inhalers: Advair and Spiriva as per vehicle service attendant. Patient was stable for discharge FINAL DIAGNOSES: Possible right lower lobe pneumonia versus pneumonitis Acute on chronic diastolic congestive heart failure Chronic venous insufficiency Hypertension Abnormal CT chest Bronchospasm-resolved Obesity Chronic pain syndrome secondary to degenerative disk disease DISCHARGE MEDICATIONS: List of medication provided to patient. Prescription for inhaler provided DISCHARGE INSTRUCTIONS: Patient was discharged home Follow up with primary care provider in one week. Patient advised on need to have outpatient follow-up with vehicle service attendant to repeat CT of the chest in 3 months. Patient was advised to have outpatient pulmonary function test I have been assigned to dictate discharge summary for this account. I was not involved in the patient's management. Nga Mckee NP Apr 09, 2018 13:48
== END 2018-04-07 13:34 | disposition home or self-care (01) | DRG 139 ==
LOC: EMR 11:38 → 2E 11:39 → EDBEDREQ 11:47 → 4E 03-31 20:31
DX: J18.9 Pneumonia, unspecified organism (principal); I50.33 Acute on chronic diastolic (congestive) heart failure; E44.0 Moderate protein-calorie malnutrition; N17.9 Acute kidney failure, unspecified; D50.9 Iron deficiency anemia, unspecified; D63.8 Anemia in other chronic diseases classified elsewhere; F17.200 Nicotine dependence, unspecified, uncomplicated; E66.9 Obesity, unspecified; I87.2 Venous insufficiency (chronic) (peripheral); J20.9 Acute bronchitis, unspecified; I11.0 Hypertensive heart disease with heart failure; J45.909 Unspecified asthma, uncomplicated; R91.8 Other nonspecific abnormal finding of lung field; Z88.6 Allergy status to analgesic agent; Z88.0 Allergy status to penicillin; G89.4 Chronic pain syndrome
CPT/HCPCS: 36415; 71045; 71046; 71250; 80053; 82270; 82378; 82550; 82553; 83540; 83550; 83605; 83690; 83735; 83880; 84484; 85025; 87040; 87070; 87205; 93005; 93970; 94640; 94664; 94760; 99285; J7620

== ENCOUNTER 2018-04-22 18:37 | Inpatient (IN) | payer MEDICAID ==
[~2018-04-22] VITALS: Ht 190.5 cm; Wt 137.7 kg
[~2018-04-22 18:37] MED LIST changes: +BENAZEPRIL HCL20 MG ORAL; +FUROSEMIDE40 MG ORAL
[2018-04-22] MEDS ORDERED: Cyclobenzaprine 10mg Tab ORAL ONE (19:15)
--- NOTE | 2018-04-22 19:22 | Emergency Room Report ---
History of Present Illness General Chief Complaint: General Complaint Source: Patient Present Illness HPI 62-year-old male with history of hypertension on Lasix 40 mg a day presents with bilateral lower extremity edema for the past week, he reports he was discharged [address] Castle had him on Lasix 40 and he was doing well until the last week when it his leg started swelling again. He reports a now painfully swollen, but denies f/c, cough, SOB, hemoptysis, chest pain. He reports compliance with his meds. Allergies: Coded Allergies: PENICILLINS (Verified Allergy, Unknown, 08/31/17) TRAMADOL (Verified Allergy, Unknown, 08/31/17) Patient History Past Medical History: see triage record Reviewed Nursing Documentation: PMH: Agreed; PSxH: Agreed Nursing Documentation-PMH Past Medical History: No History, Except For Hx Hypertension: Yes Hx Asthma: Yes Hx Cancer: No Hx Gastrointestinal Problems: No Hx Neurological Problems: No Review of Systems All Other Systems: negative except mentioned in HPI Physical Exam Vital Signs Date Time Temp Pulse Resp B/P (MAP) Pulse Ox O2 Delivery O2 Flow Rate FiO2 04/22/18 18:43 97.6 78 19 116/63 94 Room Air 97.5 Sp02 EP Interpretation: reviewed, normal General Appearance: no apparent distress, alert, non-toxic Head: normocephalic Eyes: bilateral eye normal inspection, bilateral eye PERRL, bilateral eye EOMI ENT: normal ENT inspection, hearing grossly normal, normal pharynx, no angioedema, normal voice, moist mucus membranes Neck: normal inspection, full range of motion, supple, supple/symm/no masses Respiratory: chest non-tender, lungs clear, normal breath sounds, chest symmetrical, palpation of chest normal Cardiovascular #1: normal peripheral pulses, regular rate, rhythm, edema - 3+ b /l LE edema to thighs Cardiovascular #2: 2+ radial (R), 2+ radial (L) Gastrointestinal: normal inspection, non tender, soft, no mass, no guarding, no rebound Rectal: deferred Genitourinary: normal inspection, no CVA tenderness Musculoskeletal: back normal, gait/station normal, normal range of motion, swelling Neurologic: alert, responsive, side panel padder III-XII nml as tested, motor strength/tone normal, sensory intact, speech normal Psychiatric: judgement/insight normal, memory normal, mood/affect normal Skin: normal color, no rash, warm/dry, normal turgor Lymphatic: no adenopathy Medical Decision Making Diagnostic Impression: Primary Impression: Edema ER Course Patient very significant edema, given IV Lasix, will need admission due to pain and inability ambulate due to significant progression of edema in both legs. Given 60 g IV Lasix, Flexeril, will admit to Dr. Castle, patient's primary care doctor. He was contacted and refused to admit, so Dr. Shepard will admit to [facility]. EKG Diagnostic Results EKG Time: 19:13 EP Interpretation: no st-t changes, no twi's Rate: normal Rhythm: NSR ST Segments: no acute changes Rhythm Strip Diag. Results Rhythm Strip Time: 19:21 EP Interpretation: yes Rate: 75 Rhythm: NSR, no PVC's, no ectopy Chest X-Ray Diagnostic Results Chest X-Ray Diagnostic Results : Chest X-Ray Ordered: Yes # of Views/Limited/Complete: 1 View Indication: Other EP Interpretation: Yes Interpretation: no consolidation, no effusion, no pneumothorax, no acute cardiopulmonary disease Impression: No acute disease Electronically Signed by: Ofe Schulte MD Last Vital Signs Date Time Temp Pulse Resp B/P (MAP) Pulse Ox O2 Delivery O2 Flow Rate FiO2 04/22/18 18:43 97.6 78 19 116/63 94 Room Air 97.5 Disposition: ADMITTED INPATIENT Condition: Stable OFE SCHULTE M.D Apr 22, 2018 19:22
[2018-04-22 19:30] VITALS: BP 134/59
[2018-04-22] MEDS ORDERED: SINGULAIR10 MG ORAL (19:32)
[2018-04-22] MEDS ORDERED: ADVAIR 250-501 EACH INH (19:32)
[2018-04-22] MEDS ORDERED: SPIRIVA18 MCG INH (19:33)
[2018-04-22 19:50] LABS: BASOPHILS % (AUTO) 2.7 % (0.0-2.0); EOSINOPHILS % (AUTO) 13.8 % (0.0-3.0); HEMATOCRIT 33.3 % (42.0-52.0); HEMOGLOBIN 10.6 G/DL (14.2-18.0); LYMPHOCYTES % (AUTO) 30.3 % (20.0-45.0); MEAN CORPUSCULAR VOLUME 80 FL (80-99); MONOCYTES % (AUTO) 12.2 % (1.0-10.0); PLATELET COUNT 203 K/UL (150-450); RED BLOOD COUNT 4.15 M/UL (4.70-6.10); RED CELL DISTRIBUTION WIDTH 14.4 % (11.6-14.8); WHITE BLOOD COUNT 6.4 K/UL (4.8-10.8)
[2018-04-22 20:14] LABS: ANION GAP 7 mmol/L (5-15); BLOOD UREA NITROGEN 34 mg/dL (7-18); CARBON DIOXIDE 30 MMOL/L (21-32); CHLORIDE 107 MMOL/L (98-107); CREATININE 1.2 MG/DL (0.55-1.30); POTASSIUM 4.6 MMOL/L (3.5-5.1); SODIUM 143 MMOL/L (136-145)
[2018-04-22 20:29] LABS: ALANINE AMINOTRANSFERASE 36 U/L (12-78); ALBUMIN 2.9 G/DL (3.4-5.0); ALBUMIN/GLOBULIN RATIO 0.5 (1.0-2.7); ALKALINE PHOSPHATASE 109 U/L (46-116); ASPARTATE AMINO TRANSFERASE 20 U/L (15-37); BILIRUBIN,TOTAL 0.2 MG/DL (0.2-1.0); CKMB 1.4 NG/ML (0.0-3.6); CREATINE KINASE 195 U/L (26-308)
[2018-04-22 20:58] VITALS: BP 141/62
[2018-04-22 22:28] VITALS: BP 157/77
[2018-04-22] MEDS ORDERED: Albuterol/Ipratropium 3ml neb HHN PRN (22:45)
[2018-04-23] VITALS (7 sets, daily range): BP systolic 120–133; BP diastolic 58–76
[2018-04-23] MEDS: HYDROcodone/Acetamin 10/325 tab ORAL PRN ×4 (00:39→21:59)
[2018-04-23] MEDS ORDERED: Acetaminophen 500mg (ES) tab ORAL PRN (02:30)
[2018-04-23 06:36] LABS: BASOPHILS % (AUTO) 1.3 % (0.0-2.0); EOSINOPHILS % (AUTO) 13.6 % (0.0-3.0); HEMATOCRIT 30.6 % (42.0-52.0); HEMOGLOBIN 9.5 G/DL (14.2-18.0); LYMPHOCYTES % (AUTO) 37.8 % (20.0-45.0); MEAN CORPUSCULAR VOLUME 79 FL (80-99); MONOCYTES % (AUTO) 13.4 % (1.0-10.0); NEUTROPHILS % (AUTO) 33.9 % (45.0-75.0); PLATELET COUNT 179 K/UL (150-450); RED BLOOD COUNT 3.86 M/UL (4.70-6.10); RED CELL DISTRIBUTION WIDTH 14.3 % (11.6-14.8); WHITE BLOOD COUNT 6.3 K/UL (4.8-10.8)
[2018-04-23 06:51] LABS: ALANINE AMINOTRANSFERASE 29 U/L (12-78); ALBUMIN 2.4 G/DL (3.4-5.0); ALBUMIN/GLOBULIN RATIO 0.5 (1.0-2.7); ALKALINE PHOSPHATASE 93 U/L (46-116); ANION GAP 5 mmol/L (5-15); ASPARTATE AMINO TRANSFERASE 15 U/L (15-37); BILIRUBIN,TOTAL 0.2 MG/DL (0.2-1.0); BLOOD UREA NITROGEN 32 mg/dL (7-18); CALCIUM 9.5 MG/DL (8.5-10.1); CARBON DIOXIDE 30 MMOL/L (21-32); CHLORIDE 109 MMOL/L (98-107); CREATININE 1.1 MG/DL (0.55-1.30); POTASSIUM 4.4 MMOL/L (3.5-5.1); SODIUM 144 MMOL/L (136-145)
[2018-04-23] MEDS: Advair 250/50 Inhaler - 14 dose INH SCH ×2 (08:26→20:15)
[2018-04-23] MEDS ORDERED: Furosemide 40mg tab ORAL SCH (09:00)
[2018-04-23] MEDS ORDERED: Benazepril 10mg tab ORAL SCH (09:00)
--- NOTE | 2018-04-23 09:36 | Consultation ---
History of Present Illness General Date patient seen: Apr 23, 2018 Present Illness Allergies: Coded Allergies: PENICILLINS (Verified Allergy, Unknown, 08/31/17) TRAMADOL (Verified Allergy, Unknown, 08/31/17) Medication History Scheduled Aspirin* (Aspirin*), 81 MG ORAL DAILY, (Reported) Benazepril Hcl* (Benazepril Hcl*), 20 MG ORAL DAILY, (Reported) Fluticasone/Salmeterol (Advair 250-50 Diskus), 1 PUFF INH EVERY 12 HOURS, ( Reported) Furosemide* (Lasix*), 40 MG ORAL DAILY, (Reported) Montelukast Sodium* (Singulair*), 10 MG ORAL DAILY, (Reported) Montelukast Sodium* (Singulair*), 10 MG ORAL DAILY, (Reported) Simvastatin (Zocor), 40 MG ORAL BEDTIME, (Reported) Tiotropium Centrahoma* (Spiriva*), 1 PUFF INH DAILY, (Reported) Scheduled PRN Amlodipine Besylate (Norvasc), 5 MG ORAL BID PRN Ondansetron Odt* (Zofran Odt*), 4 MG ORAL Q6H PRN for Nausea & Vomiting Oxycodone/Acetaminophen 5-325* (Percocet 5-325 Mg Tablet*), 1 TAB ORAL Q6H PRN for For Pain, (Reported) Patient History Healthcare decision maker Resuscitation status Full Code Advanced Directive on File Physical Exam Last 24 Hour Vital Signs Date Time Temp Pulse Resp B/P (MAP) Pulse Ox O2 Delivery O2 Flow Rate FiO2 04/23/18 08:30 83 16 96 Room Air 21 04/23/18 08:26 80 16 96 Room Air 04/23/18 04:00 97.2 81 18 132/60 (84) 96 97.2 04/23/18 00:00 97.3 78 19 120/58 (78) 95 97.3 04/22/18 23:32 73 20 97 Room Air 21 04/22/18 23:32 21 04/22/18 23:24 73 20 94 Room Air 21 04/22/18 22:28 97.2 76 18 157/77 (103) 97 97.2 04/22/18 21:59 Room Air 04/22/18 21:30 97.5 80 20 141/62 100 Room Air 97.5 04/22/18 20:58 97.5 80 20 141/62 100 Room Air 97.5 04/22/18 20:47 97.5 04/22/18 19:48 96.9 04/22/18 19:30 96.9 83 22 134/59 100 Room Air 96.9 04/22/18 18:43 97.6 78 19 116/63 94 Room Air 97.5 Intake and Output 04/22/18 04/23/18 19:00 07:00 Intake Total 800 ml Output Total 3600 ml Balance -2800 ml Intake Oral 800 ml Output Urine Total 3600 ml # Voids 3 # Bowel Movements 1 Laboratory Tests Test 04/22/18 19:20 04/23/18 05:10 White Blood Count 6.4 K/UL (4.8-10.8) 6.3 K/UL (4.8-10.8) Red Blood Count 4.15 M/UL (4.70-6.10) L 3.86 M/UL (4.70-6.10) L Hemoglobin 10.6 G/DL (14.2-18.0) L 9.5 G/DL (14.2-18.0) L Hematocrit 33.3 % (42.0-52.0) L 30.6 % (42.0-52.0) L Mean Corpuscular Volume 80 FL (80-99) 79 FL (80-99) L Mean Corpuscular Hemoglobin 25.5 PG (27.0-31.0) L 24.5 PG (27.0-31.0) L Mean Corpuscular Hemoglobin Concent 31.8 G/DL (32.0-36.0) L 30.9 G/DL (32.0-36.0) L Red Cell Distribution Width 14.4 % (11.6-14.8) 14.3 % (11.6-14.8) Platelet Count 203 K/UL (150-450) 179 K/UL (150-450) Mean Platelet Volume 7.9 FL (6.5-10.1) 7.9 FL (6.5-10.1) Neutrophils (%) (Auto) 41.0 % (45.0-75.0) L 33.9 % (45.0-75.0) L Lymphocytes (%) (Auto) 30.3 % (20.0-45.0) 37.8 % (20.0-45.0) Monocytes (%) (Auto) 12.2 % (1.0-10.0) H 13.4 % (1.0-10.0) H Eosinophils (%) (Auto) 13.8 % (0.0-3.0) H 13.6 % (0.0-3.0) H Basophils (%) (Auto) 2.7 % (0.0-2.0) H 1.3 % (0.0-2.0) Sodium Level 143 MMOL/L (136-145) 144 MMOL/L (136-145) Potassium Level 4.6 MMOL/L (3.5-5.1) 4.4 MMOL/L (3.5-5.1) Chloride Level 107 MMOL/L (98-107) 109 MMOL/L (98-107) H Carbon Dioxide Level 30 MMOL/L (21-32) 30 MMOL/L (21-32) Anion Gap 7 mmol/L (5-15) 5 mmol/L (5-15) Blood Urea Nitrogen 34 mg/dL (7-18) H 32 mg/dL (7-18) H Creatinine 1.2 MG/DL (0.55-1.30) 1.1 MG/DL (0.55-1.30) Estimat Glomerular Filtration Rate > 60 mL/min (>60) > 60 mL/min (>60) Glucose Level 91 MG/DL (74-106) 95 MG/DL (74-106) Calcium Level 10.0 MG/DL (8.5-10.1) 9.5 MG/DL (8.5-10.1) Total Bilirubin 0.2 MG/DL (0.2-1.0) 0.2 MG/DL (0.2-1.0) Aspartate Amino Transf (AST/SGOT) 20 U/L (15-37) 15 U/L (15-37) Alanine Aminotransferase (ALT/SGPT) 36 U/L (12-78) 29 U/L (12-78) Alkaline Phosphatase 109 U/L (46-116) 93 U/L (46-116) Total Creatine Kinase 195 U/L (26-308) Creatine Kinase MB 1.4 NG/ML (0.0-3.6) Creatine Kinase MB Relative Index 0.7 Troponin I 0.000 ng/mL (0.000-0.056) Pro-B-Type Natriuretic Peptide 226 pg/mL (0-125) H Total Protein 8.6 G/DL (6.4-8.2) H 7.2 G/DL (6.4-8.2) Albumin 2.9 G/DL (3.4-5.0) L 2.4 G/DL (3.4-5.0) L Globulin 5.7 g/dL 4.8 g/dL Albumin/Globulin Ratio 0.5 (1.0-2.7) L 0.5 (1.0-2.7) L Height (Feet): 6 Height (Inches): 3.00 Weight (Pounds): 321 Medications Current Medications Medications (Trade) Dose Ordered Sig/Virgen Route PRN Reason Start Time Stop Time Status Last Admin Dose Admin Acetaminophen (Tylenol) 500 mg Q4H PRN ORAL Mild Pain/Temp > 100.5 04/23/18 02:30 05/23/18 02:29 Acetaminophen/ Hydrocodone Bitart ([place] 10/325) 1 tab Q4H PRN ORAL For Pain 04/22/18 22:45 04/29/18 22:44 04/23/18 00:39 Albuterol/ Ipratropium (Albuterol/ Ipratropium) 3 ml Q4H PRN HHN Shortness of Breath 04/22/18 22:45 04/27/18 22:44 04/22/18 23:24 Amlodipine Besylate (Norvasc) 5 mg BID ORAL 04/23/18 09:00 05/23/18 08:59 Aspirin (ASA) 81 mg DAILY ORAL 04/23/18 09:00 05/23/18 08:59 Atorvastatin Calcium (Lipitor) 20 mg BEDTIME ORAL 04/23/18 21:00 05/23/18 20:59 Benazepril HCl (Lotensin) 20 mg DAILY ORAL 04/23/18 09:00 05/23/18 08:59 Furosemide (Lasix) 40 mg DAILY ORAL 04/23/18 09:00 05/23/18 08:59 Montelukast Sodium (Singulair) 10 mg DAILY ORAL 04/23/18 09:00 05/23/18 08:59 Ondansetron HCl (Zofran ODT) 4 mg Q6H PRN ORAL Nausea & Vomiting 04/22/18 22:45 05/22/18 22:44 Salmeterol Xinafoate/ Fluticasone (Advair 250/50 Diskus) 1 puffs EVERY 12 HOURS INH 04/23/18 09:00 05/23/18 08:59 04/23/18 08:26 Tiotropium Centrah[place] (Spiriva Inhaler) 1 puff DAILY INH 04/23/18 09:00 05/23/18 08:59 04/23/18 08:26 Assessment/Plan Assessment/Plan (1) B/L LE pain (2) Edema (3) B/L knee pain (4) R/O B/L Knee OA (5) Morbid obesity seen dictated. Leonel Singer Apr 23, 2018 09:36
[2018-04-23] MEDS: Aspirin Baby 81mg ORAL SCH (10:01)
[2018-04-23] MEDS: Montelukast 10mg tablet ORAL SCH (10:02)
--- NOTE | 2018-04-23 11:17 | Diagnostic Imaging Report ---
Indication: Shortness of breath Technique: One view of the chest Comparison: 04/04/2018 Findings: The lungs and pleural spaces are clear. Heart size is normal Impression: Negative
--- NOTE | 2018-04-23 11:57 | Diagnostic Imaging Report ---
Indication: Knee pain Technique: 2 views of the left knee Comparison: None Findings: There are severe degenerative changes of all 3 joint compartments, with marked narrowing, particularly in the lateral compartment, osteophytes, and irregularity of the chondral surfaces. There may be a suprapatellar effusion. No acute fractures. No dislocations Impression: No acute bony trauma Severe degenerative changes, as described
--- NOTE | 2018-04-23 11:59 | Diagnostic Imaging Report ---
Indication: Knee pain Technique: 2 views of the ] knee Comparison: None Findings: There is degenerative narrowing of all 3 joint compartments, most strikingly the lateral. There is degenerative remodeling of the medial femoral condyle and medial tibial plateau. There are also degenerative proliferative changes. There is probably a suprapatellar effusion. No acute fractures. No dislocations. Numerous phleboliths are seen in the proximal leg soft tissues anteriorly Impression: Marked degenerative changes, as described Cluster of phleboliths in the anterior leg soft tissues, could indicate the presence of a hemangioma. Correlate with clinical findings
--- NOTE | 2018-04-23 15:48 | Cardiology Report ---
APPROVED REPORT EKG Measurement Heart [id number] Normal sinus rhythm Normal ECG
--- NOTE | 2018-04-23 17:08 | Cardiac Electrophysiology PN ---
Subjective Subjective [id number] Objective Last 24 Hour Vital Signs Date Time Temp Pulse Resp B/P (MAP) Pulse Ox O2 Delivery O2 Flow Rate FiO2 04/23/18 12:00 97.7 66 19 121/66 (84) 97.7 04/23/18 10:02 127/70 04/23/18 10:00 Room Air 04/23/18 09:57 70 127/70 (89) 04/23/18 09:00 70 127/70 04/23/18 08:30 83 16 96 Room Air 21 04/23/18 08:26 80 16 96 Room Air 21 04/23/18 08:00 98.1 77 20 123/63 (83) 96 98.1 04/23/18 04:00 97.2 81 18 132/60 (84) 96 97.2 04/23/18 00:00 97.3 78 19 120/58 (78) 95 97.3 04/22/18 23:32 73 20 97 Room Air 21 04/22/18 23:32 21 04/22/18 23:24 73 20 94 Room Air 21 04/22/18 22:28 97.2 76 18 157/77 (103) 97 97.2 04/22/18 21:59 Room Air 04/22/18 21:30 97.5 80 20 141/62 100 Room Air 97.5 04/22/18 20:58 97.5 80 20 141/62 100 Room Air 97.5 04/22/18 20:47 97.5 04/22/18 19:48 96.9 04/22/18 19:30 96.9 83 22 134/59 100 Room Air 96.9 04/22/18 18:43 97.6 78 19 116/63 94 Room Air 97.5 Intake and Output 04/22/18 04/23/18 19:00 07:00 Intake Total 800 ml Output Total 3600 ml Balance -2800 ml Intake Oral 800 ml Output Urine Total 3600 ml # Voids 3 # Bowel Movements 1 Laboratory Tests Test 04/22/18 19:20 04/23/18 05:10 White Blood Count 6.4 K/UL (4.8-10.8) 6.3 K/UL (4.8-10.8) Red Blood Count 4.15 M/UL (4.70-6.10) L 3.86 M/UL (4.70-6.10) L Hemoglobin 10.6 G/DL (14.2-18.0) L 9.5 G/DL (14.2-18.0) L Hematocrit 33.3 % (42.0-52.0) L 30.6 % (42.0-52.0) L Mean Corpuscular Volume 80 FL (80-99) 79 FL (80-99) L Mean Corpuscular Hemoglobin 25.5 PG (27.0-31.0) L 24.5 PG (27.0-31.0) L Mean Corpuscular Hemoglobin Concent 31.8 G/DL (32.0-36.0) L 30.9 G/DL (32.0-36.0) L Red Cell Distribution Width 14.4 % (11.6-14.8) 14.3 % (11.6-14.8) Platelet Count 203 K/UL (150-450) 179 K/UL (150-450) Mean Platelet Volume 7.9 FL (6.5-10.1) 7.9 FL (6.5-10.1) Neutrophils (%) (Auto) 41.0 % (45.0-75.0) L 33.9 % (45.0-75.0) L Lymphocytes (%) (Auto) 30.3 % (20.0-45.0) 37.8 % (20.0-45.0) Monocytes (%) (Auto) 12.2 % (1.0-10.0) H 13.4 % (1.0-10.0) H Eosinophils (%) (Auto) 13.8 % (0.0-3.0) H 13.6 % (0.0-3.0) H Basophils (%) (Auto) 2.7 % (0.0-2.0) H 1.3 % (0.0-2.0) Sodium Level 143 MMOL/L (136-145) 144 MMOL/L (136-145) Potassium Level 4.6 MMOL/L (3.5-5.1) 4.4 MMOL/L (3.5-5.1) Chloride Level 107 MMOL/L (98-107) 109 MMOL/L (98-107) H Carbon Dioxide Level 30 MMOL/L (21-32) 30 MMOL/L (21-32) Anion Gap 7 mmol/L (5-15) 5 mmol/L (5-15) Blood Urea Nitrogen 34 mg/dL (7-18) H 32 mg/dL (7-18) H Creatinine 1.2 MG/DL (0.55-1.30) 1.1 MG/DL (0.55-1.30) Estimat Glomerular Filtration Rate > 60 mL/min (>60) > 60 mL/min (>60) Glucose Level 91 MG/DL (74-106) 95 MG/DL (74-106) Calcium Level 10.0 MG/DL (8.5-10.1) 9.5 MG/DL (8.5-10.1) Total Bilirubin 0.2 MG/DL (0.2-1.0) 0.2 MG/DL (0.2-1.0) Aspartate Amino Transf (AST/SGOT) 20 U/L (15-37) 15 U/L (15-37) Alanine Aminotransferase (ALT/SGPT) 36 U/L (12-78) 29 U/L (12-78) Alkaline Phosphatase 109 U/L (46-116) 93 U/L (46-116) Total Creatine Kinase 195 U/L (26-308) Creatine Kinase MB 1.4 NG/ML (0.0-3.6) Creatine Kinase MB Relative Index 0.7 Troponin I 0.000 ng/mL (0.000-0.056) Pro-B-Type Natriuretic Peptide 226 pg/mL (0-125) H Total Protein 8.6 G/DL (6.4-8.2) H 7.2 G/DL (6.4-8.2) Albumin 2.9 G/DL (3.4-5.0) L 2.4 G/DL (3.4-5.0) L Globulin 5.7 g/dL 4.8 g/dL Albumin/Globulin Ratio 0.5 (1.0-2.7) L 0.5 (1.0-2.7) L Prosper Crum MD Apr 23, 2018 17:08
--- NOTE | 2018-04-23 18:15 | Consultation ---
DATE OF CONSULTATION: 04/23/2018 PAIN MANAGEMENT CONSULTATION CONSULTING PHYSICIAN: Gilson Hurley M.D. REFERRING PHYSICIAN: Brittney Shepard M.D. PHYSICIAN PRENATAL GENETIC COUNSELOR: Josué Raymundo CHIEF COMPLAINT: Bilateral lower extremity pain. HISTORY OF PRESENT ILLNESS: This is a 62-year-old male, who is being seen on the Medical[facility]Surgical floor of [facility] for initial comprehensive pain management consultation. The patient was admitted under the care of Dr. Shepard due to complaints of severe bilateral lower extremity pain and found to have a edema. Upon last admission, the patient was found to have congestive heart failure and then discharged home. However, he has continued swelling in his lower extremities with severe pain. Also reporting that he has pain in his bilateral knees, which he describes as a sharp stabbing and aching, throbbing, worse with walking and standing, and nothing has been reducing his pain due to this the patient was admitted to the hospital, started on [place] 10/325 mg one tablet every 4 hours as needed for severe pain. The patient has adequately helped with his pain. We were consulted so the patient would have adequate pain control while here in the hospital. PAST MEDICAL HISTORY: Asthma, CHF and hypertension. PAST SURGICAL HISTORY: Right ankle surgery and appendectomy. ALLERGIES: Penicillin and tramadol. MEDICATIONS: Aspirin, benazepril, Advair, Lasix, Singulair, Zocor, Spiriva, Norvasc and Zofran. SOCIAL HISTORY: History of smoking tobacco. Smokes marijuana at this time. Denies alcohol abuse and IV drug abuse. REVIEW OF SYSTEMS: Denies rash, fever, chills, sweating, dizziness, drowsiness, blurred vision, sore throat, or change in weight. No shortness of breath or chest pain. No nausea, vomiting, diarrhea, or blood in the stool or urine. No bowel or bladder incontinence. No dysuria. He is complaining of bilateral lower extremity pain. PHYSICAL EXAMINATION: GENERAL: Alert, awake, and oriented. VITAL SIGNS: Blood pressure 120/80, heart rate is 81, oxygen saturation is 96%, respiratory rate 18, and temperature 98.2 degrees Fahrenheit. HEENT: PERRLA. NECK: Range of motion is full in all directions. No tenderness. No cervical adenopathy. LUNGS: Decreased breath sounds bilaterally. HEART: S1 and S2 regular. ABDOMEN: Obese. BACK: Range of motion is decreased in flexion and extension. EXTREMITIES: Upper and lower extremity range of motion is decreased due to the patient's pain and condition. No cyanosis. No clubbing. With severe edema noted in bilateral lower extremities. Sensory is intact. Reflexes are not obtainable. No adenopathy. ASSESSMENT AND PLAN: This is a 62-year-old male with bilateral lower extremity pain, edema, bilateral knee pain without bilateral knee osteoarthritis, and morbid obesity. The patient will be continued on [place] 10/325 mg one tablet every 4 hours as needed for severe pain. We will order an x-ray of the bilateral knees to rule out further pathology at this time. The patient was discussed with Dr. Hurley and Dr. Hurley concurred. We will follow the patient. Thank you very much for the courtesy of this consultation. Gilson Hurley M.D. ADRIAN Raymundo DR: TULIO JOB#: [id number] CC: TOM
[2018-04-23] MEDS: Atorvastatin 20mg tab ORAL SCH (20:48)
[2018-04-23] MEDS: Benazepril 10mg tab ORAL SCH (20:48)
--- NOTE | 2018-04-23 22:45 | Consultation ---
DATE OF CONSULTATION: 04/23/2018 CARDIOLOGY CONSULTATION CONSULTING PHYSICIAN: Prosper Crum M.D. REFERRING PHYSICIAN: Brittney Shepard M.D. REASON FOR CONSULTATION: Exacerbation of congestive heart failure. HISTORY OF PRESENT ILLNESS: The patient is a 62-year-old gentleman with history of hypertension and chronic diastolic dysfunction who was discharged about three weeks ago for severe lower extremity edema. The patient presented to the emergency room again with worsening lower extremity edema which is now painful. The patient denies any shortness of breath. No chest pain or syncope. The patient states that he has been compliant with his medication. The patient was admitted and a Cardiology consultation was obtained for further evaluation and management. REVIEW OF SYSTEMS: Review of systems was negative other than what is mentioned in the history of present illness. PAST MEDICAL HISTORY: As mentioned above. ALLERGIES: He is allergic to penicillin and tramadol. FAMILY HISTORY: Noncontributory. SOCIAL HISTORY: Does not smoke or drink alcohol. PHYSICAL EXAMINATION: VITAL SIGNS: Blood pressure is 121/66, pulse 66, respirations 19, and he is afebrile. HEAD AND NECK: Showed no JVD. LUNGS: Clear. CARDIOVASCULAR: Regular S1 and S2 with no gallop or murmur. ABDOMEN: Soft. EXTREMITIES: A 2+ bilateral pitting edema. LABORATORY DATA: White count of 6.2, hemoglobin 9.5, hematocrit of 30, and platelet count is 179. Sodium is 144, potassium 4.4, BUN of 32, creatinine 1.1, and glucose of 95. His troponin is negative. BNP is 226. ASSESSMENT AND PLAN: 1. Congestive heart failure due to diastolic dysfunction. BNP is 226. I will start the patient on Lasix 40 mg IV b.i.d. and continue to follow the patient clinically. 2. Hypertension. Continue Lasix and add benazepril 20 mg daily. 3. Chronic obstructive pulmonary disease on albuterol and Advair. 4. Hyperlipidemia on Lipitor. 5. Morbid obesity. 6. Anemia. Thank you very much, Dr. Shepard, for allowing me to participate in the care of this patient. Please do not hesitate to contact me for any questions regarding my evaluation. Sincerely, Prosper Crum M.D. DR: Patricia JOB#: [id number] CC:
[2018-04-24] VITALS (7 sets, daily range): BP systolic 114–164; BP diastolic 63–99
[2018-04-24] MEDS: HYDROcodone/Acetamin 10/325 tab ORAL PRN ×5 (01:54→21:08)
--- NOTE | 2018-04-24 04:00 | History and Physical Report ---
DATE OF ADMISSION: 04/22/2018 NOTE: POOR AUDIO HISTORY OF PRESENT ILLNESS: . The patient was dizzy 3 weeks ago, back with the same worsening lower extremity edema, shortness of breath, and edema. The patient's edema is getting worse. The patient is also somewhat noncompliant with the medication . The patient lower extremity edema and complained of leg pain, shortness of breath and orthopnea . He denies chest pain, nausea, vomiting, or diarrhea. Denies fever or chills. Denies cough. PAST MEDICAL HISTORY: CHF, hypertension, asthma, chronic pain syndrome, and hyperlipidemia. PAST SURGICAL HISTORY: Right ankle surgery and appendectomy. SOCIAL HISTORY: History of drug abuse and history of smoking. Denies alcohol abuse. ALLERGIES: Penicillin and tramadol. MEDICATIONS: Aspirin, benazepril, Lasix, Singulair, simvastatin, and Spiriva. FAMILY HISTORY: Does have history of diabetes. REVIEW OF SYSTEMS: HEENT: Denies headaches. RESPIRATORY: Reports shortness of breath, getting worse. Denies cough. CARDIOVASCULAR: Denies chest pain. Does have 3-pillow orthopnea and reports worsening leg edema. GASTROINTESTINAL: Denies nausea, vomiting, or diarrhea. EXTREMITY: Does complain of leg pain and worsening leg edema. CENTRAL NERVOUS SYSTEM: Denies change in vision or speech pattern. PHYSICAL EXAMINATION: VITAL SIGNS: Temperature 97.7 degrees, pulse is 66, and blood pressure 121/66. HEENT: PERRLA. NECK: Supple. No lymphadenopathy. CHEST: Clear to auscultation. CARDIOVASCULAR: Regular rate and rhythm. GASTROINTESTINAL: Soft and distended. Positive bowel sounds. EXTREMITIES: There is 2+ pitting edema. The patient has severe lower extremity edema. He has ataxia. Reflexes equal on both sides. LABORATORY AND DIAGNOSTIC DATA: WBC of 6.4, hemoglobin 10.6, and platelets of 203. Sodium 143, potassium 4.6, BUN of 34, creatinine 1.2, and glucose of 95. Chest x-ray shows negative for pulmonary edema. ASSESSMENT AND PLAN: 1. CHF exacerbation, worsening edema. 2. Leg pain with leg edema. 3. Asthma. I have asked , Dr. Hardwick, , and Dr. Haji to see the patient for management of CHF and pain control as well. Brittney Shepard M.D. DR: ISAIAH JOB#: [id number] CC:
[2018-04-24] MEDS: Advair 250/50 Inhaler - 14 dose INH SCH ×2 (08:29→20:15)
[2018-04-24] MEDS: Aspirin Baby 81mg ORAL SCH (10:02)
[2018-04-24] MEDS: Benazepril 10mg tab ORAL SCH ×2 (10:03→21:07)
[2018-04-24] MEDS: Montelukast 10mg tablet ORAL SCH (10:03)
--- NOTE | 2018-04-24 14:22 | General Progress Note ---
Assessment/Plan Assessment/Plan (1) B/L LE pain (2) Edema (3) B/L knee pain (4) B/L Knee OA (5) Morbid obesity Pt to be continued on [place]. D/w Dr. Hurley and he concurred. Subjective Date patient seen: Apr 24, 2018 Time patient seen: 01:45 - pm Allergies: Coded Allergies: PENICILLINS (Verified Allergy, Unknown, 08/31/17) TRAMADOL (Verified Allergy, Unknown, 08/31/17) Subjective REVIEW OF SYSTEMS: Denies rash, fever, chills, sweating, dizziness, drowsiness, blurred vision, sore throat, or change in weight. No shortness of breath or chest pain. No nausea, vomiting, diarrhea, or blood in the stool or urine. No bowel or bladder incontinence. No dysuria. He is complaining of bilateral lower extremity pain. SUBJECTIVE: Patient is in bed and showing no signs of pain. Pain has been reduced on the [place] 5 tabs in the last 24hrs. Xray were reviewed. Objective Last 24 Hour Vital Signs Date Time Temp Pulse Resp B/P (MAP) Pulse Ox O2 Delivery O2 Flow Rate FiO2 04/24/18 12:00 98.6 63 20 149/79 (102) 97 98.6 04/24/18 10:08 Room Air 04/24/18 10:03 135/71 04/24/18 09:58 60 135/71 (92) 04/24/18 08:31 66 18 95 Room Air 21 04/24/18 08:29 66 16 95 Room Air 21 04/24/18 08:00 98.3 76 20 164/99 (120) 97 98.3 04/24/18 07:12 98.0 04/24/18 06:42 98.0 04/24/18 04:00 98.0 58 21 134/82 (99) 92 98.0 04/24/18 01:54 98.3 04/24/18 00:00 98.3 65 21 136/69 (91) 94 98.3 04/23/18 21:59 97.9 04/23/18 20:48 131/65 04/23/18 20:33 Room Air 04/23/18 20:29 97.9 72 20 131/65 (87) 96 97.9 04/23/18 20:15 59 16 96 Room Air 21 04/23/18 20:15 59 18 96 Room Air 21 04/23/18 16:00 98.0 69 20 133/76 (95) 100 98.0 Intake and Output 04/23/18 04/24/18 19:00 07:00 Intake Total 750 ml Output Total 1275 ml 1600 ml Balance -525 ml -1600 ml Intake Oral 750 ml Output Urine Total 1275 ml 1600 ml Height (Feet): 6 Height (Inches): 3.00 Weight (Pounds): 321 Objective GENERAL: Alert, awake, and oriented. LUNGS: Decreased breath sounds bilaterally. HEART: S1 and S2 regular. ABDOMEN: Obese. EXTREMITIES: Severe edema noted in bilateral lower extremities. NEURO: No changes. Procedure: XRAY Knee 1-2v L Indication: Knee pain Technique: 2 views of the left knee Comparison: None Findings: There are severe degenerative changes of all 3 joint compartments, with marked narrowing, particularly in the lateral compartment, osteophytes, and irregularity of the chondral surfaces. There may be a suprapatellar effusion. No acute fractures. No dislocations Impression: No acute bony trauma Severe degenerative changes, as described Procedure: XRAY Knee 1-2v R Indication: Knee pain Technique: 2 views of the ] knee Comparison: None Findings: There is degenerative narrowing of all 3 joint compartments, most strikingly the lateral. There is degenerative remodeling of the medial femoral condyle and medial tibial plateau. There are also degenerative proliferative changes. There is probably a suprapatellar effusion. No acute fractures. No dislocations. Numerous phleboliths are seen in the proximal leg soft tissues anteriorly Impression: Marked degenerative changes, as described Leonel Singer Apr 24, 2018 14:22
--- NOTE | 2018-04-24 15:56 | Diagnostic Imaging Report ---
APPROVED REPORT CPT Code: 64125 Present Symptoms Comments: BILATERAL LEGS PAIN. BILATERAL: Imaging reveals a patent deep venous system bilaterally. There is no evidence of thrombus within the femoral, popliteal or tibial segments. The greater saphenous veins are also within normal limits. Doppler indicates normal spontaneous flow within these segments.
--- NOTE | 2018-04-24 17:28 | Cardiac Electrophysiology PN ---
Assessment/Plan Assessment/Plan 1. Congestive heart failure due to diastolic dysfunction. BNP is 226. Continue Lasix 40 mg IV b.i.d. 2. Hypertension. Continue Lasix 40 iv bid and benazepril 20 mg bid 3. Chronic obstructive pulmonary disease on albuterol and Advair. 4. Hyperlipidemia on Lipitor. 5. Morbid obesity. 6. Anemia. Subjective Subjective Diuresing well.No CP or SOB Objective Last 24 Hour Vital Signs Date Time Temp Pulse Resp B/P (MAP) Pulse Ox O2 Delivery O2 Flow Rate FiO2 04/24/18 16:00 97.1 58 22 140/77 (98) 97 97.1 04/24/18 12:00 98.6 63 20 149/79 (102) 97 98.6 04/24/18 10:08 Room Air 04/24/18 10:03 135/71 04/24/18 09:58 60 135/71 (92) 04/24/18 08:31 66 18 95 Room Air 21 04/24/18 08:29 66 16 95 Room Air 21 04/24/18 08:00 98.3 76 20 164/99 (120) 97 98.3 04/24/18 07:12 98.0 04/24/18 06:42 98.0 04/24/18 04:00 98.0 58 21 134/82 (99) 92 98.0 04/24/18 01:54 98.3 04/24/18 00:00 98.3 65 21 136/69 (91) 94 98.3 04/23/18 21:59 97.9 04/23/18 20:48 131/65 04/23/18 20:33 Room Air 04/23/18 20:29 97.9 72 20 131/65 (87) 96 97.9 04/23/18 20:15 59 16 96 Room Air 21 04/23/18 20:15 59 18 96 Room Air 21 Intake and Output 04/23/18 04/24/18 19:00 07:00 Intake Total 750 ml Output Total 1275 ml 1600 ml Balance -525 ml -1600 ml Intake Oral 750 ml Output Urine Total 1275 ml 1600 ml Objective HEAD AND NECK: No JVD. LUNGS: Clear. CARDIOVASCULAR: Regular S1 and S2 with no gallop or murmur. ABDOMEN: Soft. EXTREMITIES: 2+ bilateral pitting edema. Prosper Crum MD Apr 24, 2018 17:28
--- NOTE | 2018-04-24 20:55 | General Progress Note ---
Assessment/Plan Problem List: (1) Nausea & vomiting ICD Codes: R11.2 - Nausea with vomiting, unspecified SNOMED: 63085354 (2) Edema ICD Codes: R60.9 - Edema, unspecified SNOMED: 735586649, 568740030 (3) CHF (congestive heart failure) ICD Codes: I50.9 - Heart failure, unspecified SNOMED: 39087499 Status: progressing Assessment/Plan chf exacerbation afebrile no vomitting Subjective ROS Limited/Unobtainable: Yes Allergies: Coded Allergies: PENICILLINS (Verified Allergy, Unknown, 08/31/17) TRAMADOL (Verified Allergy, Unknown, 08/31/17) Objective Last 24 Hour Vital Signs Date Time Temp Pulse Resp B/P (MAP) Pulse Ox O2 Delivery O2 Flow Rate FiO2 04/24/18 20:17 73 18 96 Room Air 21 04/24/18 20:15 73 18 95 Room Air 21 04/24/18 20:13 97.5 69 18 114/63 (80) 95 97.5 04/24/18 16:00 97.1 58 22 140/77 (98) 97 97.1 04/24/18 12:00 98.6 63 20 149/79 (102) 97 98.6 04/24/18 10:08 Room Air 04/24/18 10:03 135/71 04/24/18 09:58 60 135/71 (92) 04/24/18 08:31 66 18 95 Room Air 21 04/24/18 08:29 66 16 95 Room Air 21 04/24/18 08:00 98.3 76 20 164/99 (120) 97 98.3 04/24/18 07:12 98.0 04/24/18 06:42 98.0 04/24/18 04:00 98.0 58 21 134/82 (99) 92 98.0 04/24/18 01:54 98.3 04/24/18 00:00 98.3 65 21 136/69 (91) 94 98.3 04/23/18 21:59 97.9 Intake and Output 04/23/18 04/24/18 19:00 07:00 Intake Total 750 ml Output Total 1275 ml 1600 ml Balance -525 ml -1600 ml Intake Oral 750 ml Output Urine Total 1275 ml 1600 ml Height (Feet): 6 Height (Inches): 3.00 Weight (Pounds): 321 Cardiovascular: normal rate Respiratory/Chest: lungs clear Abdomen: soft Brittney Shepard MD Apr 24, 2018 20:55
[2018-04-24] MEDS: Atorvastatin 20mg tab ORAL SCH (21:07)
[2018-04-25 00:50] VITALS: BP 124/57
[2018-04-25] MEDS: HYDROcodone/Acetamin 10/325 tab ORAL PRN ×6 (01:46→23:03)
[2018-04-25 04:40] VITALS: BP 158/80
[2018-04-25 08:00] VITALS: BP 124/64
[2018-04-25] MEDS: Advair 250/50 Inhaler - 14 dose INH SCH ×2 (08:37→20:47)
[2018-04-25] MEDS: Montelukast 10mg tablet ORAL SCH (09:06)
[2018-04-25] MEDS: Aspirin Baby 81mg ORAL SCH (09:06)
[2018-04-25] MEDS: Benazepril 10mg tab ORAL SCH ×2 (09:08→20:35)
--- NOTE | 2018-04-25 09:36 | General Progress Note ---
Assessment/Plan Assessment/Plan (1) B/L LE pain (2) Edema (3) B/L knee pain (4) B/L Knee OA (5) Morbid obesity Pt to be continued on [place]. D/w Dr. Hurley and he concurred. Subjective Date patient seen: Apr 25, 2018 Time patient seen: 09:00 - am Allergies: Coded Allergies: PENICILLINS (Verified Allergy, Unknown, 08/31/17) TRAMADOL (Verified Allergy, Unknown, 08/31/17) Subjective REVIEW OF SYSTEMS: Denies rash, fever, chills, sweating, dizziness, drowsiness, blurred vision, sore throat, or change in weight. No shortness of breath or chest pain. No nausea, vomiting, diarrhea, or blood in the stool or urine. No bowel or bladder incontinence. No dysuria. He is complaining of bilateral lower extremity pain. SUBJECTIVE: Patient reports that his pain can still be severe with movement. It has been tolerated on the [place] using it as needed. He has no new complaints at this time. Objective Last 24 Hour Vital Signs Date Time Temp Pulse Resp B/P (MAP) Pulse Ox O2 Delivery O2 Flow Rate FiO2 04/25/18 09:08 124/64 04/25/18 08:00 97.4 71 22 124/64 (84) 97 97.4 04/25/18 04:40 97.9 62 18 158/80 (106) 93 97.9 04/25/18 00:50 98.7 67 19 124/57 (79) 91 98.7 04/24/18 21:07 114/63 04/24/18 21:00 Room Air 04/24/18 20:17 73 18 96 Room Air 21 04/24/18 20:15 73 18 95 Room Air 21 04/24/18 20:13 97.5 69 18 114/63 (80) 95 97.5 04/24/18 16:00 97.1 58 22 140/77 (98) 97 97.1 04/24/18 12:00 98.6 63 20 149/79 (102) 97 98.6 04/24/18 10:08 Room Air 04/24/18 10:03 135/71 04/24/18 09:58 60 135/71 (92) Intake and Output 9/6/18 9/7/18 19:00 07:00 Intake Total 1520 ml Output Total 4125 ml 1600 ml Balance -2605 ml -1600 ml Intake Oral 720 ml Other 800 ml Output Urine Total 4125 ml 1600 ml # Voids 1 6 Height (Feet): 6 Height (Inches): 3.00 Weight (Pounds): 321 Objective GENERAL: Alert, awake, and oriented. LUNGS: Decreased breath sounds bilaterally. HEART: S1 and S2 regular. ABDOMEN: Obese. EXTREMITIES: Severe edema noted in bilateral lower extremities. NEURO: No changes. Leonel Singer Apr 25, 2018 09:36
[2018-04-25 12:00] VITALS: BP 130/68
--- NOTE | 2018-04-25 13:19 | Cardiac Electrophysiology PN ---
Assessment/Plan Assessment/Plan 1. Congestive heart failure due to diastolic dysfunction EF 65%. Continue Lasix 40 mg IV b.i.d. 2. Hypertension. Continue Lasix 40 iv bid and benazepril 20 mg bid 3. Chronic obstructive pulmonary disease on albuterol and Advair. 4. Hyperlipidemia on Lipitor. 5. Morbid obesity. 6. Anemia. Subjective Subjective Diuresing well.No CP or SOB. DC planning in progress. Objective Last 24 Hour Vital Signs Date Time Temp Pulse Resp B/P (MAP) Pulse Ox O2 Delivery O2 Flow Rate FiO2 04/25/18 12:00 98.2 58 23 130/68 (88) 97 98.2 04/25/18 09:08 124/64 04/25/18 09:00 Room Air 04/25/18 08:39 69 20 96 Room Air 21 04/25/18 08:37 66 20 96 Room Air 21 04/25/18 08:00 97.4 71 22 124/64 (84) 97 97.4 04/25/18 04:40 97.9 62 18 158/80 (106) 93 97.9 04/25/18 00:50 98.7 67 19 124/57 (79) 91 98.7 04/24/18 21:07 114/63 04/24/18 21:00 Room Air 04/24/18 20:17 73 18 96 Room Air 21 04/24/18 20:15 73 18 95 Room Air 21 04/24/18 20:13 97.5 69 18 114/63 (80) 95 97.5 04/24/18 16:00 97.1 58 22 140/77 (98) 97 97.1 Intake and Output 04/24/18 04/25/18 19:00 07:00 Intake Total 1520 ml Output Total 4125 ml 1600 ml Balance -2605 ml -1600 ml Intake Oral 720 ml Other 800 ml Output Urine Total 4125 ml 1600 ml # Voids 1 6 Objective HEAD AND NECK: No JVD. LUNGS: Clear. CARDIOVASCULAR: Regular S1 and S2 with no gallop or murmur. ABDOMEN: Soft. EXTREMITIES: 2+ bilateral pitting edema. Prosper Crum MD Apr 25, 2018 13:19
--- NOTE | 2018-04-25 15:00 | General Progress Note ---
Assessment/Plan Problem List: (1) Nausea & vomiting ICD Codes: R11.2 - Nausea with vomiting, unspecified SNOMED: 43735243 (2) Edema ICD Codes: R60.9 - Edema, unspecified SNOMED: 280495336, 464096572 (3) CHF (congestive heart failure) ICD Codes: I50.9 - Heart failure, unspecified SNOMED: 05368772 Status: progressing Assessment/Plan chf exacerbation leg edema orthopnea no nausea afebrile Subjective ROS Limited/Unobtainable: Yes Constitutional: Reports: no symptoms Allergies: Coded Allergies: PENICILLINS (Verified Allergy, Unknown, 08/31/17) TRAMADOL (Verified Allergy, Unknown, 08/31/17) Objective Last 24 Hour Vital Signs Date Time Temp Pulse Resp B/P (MAP) Pulse Ox O2 Delivery O2 Flow Rate FiO2 04/25/18 12:00 98.2 58 23 130/68 (88) 97 98.2 04/25/18 09:08 124/64 04/25/18 09:00 Room Air 04/25/18 08:39 69 20 96 Room Air 21 04/25/18 08:37 66 20 96 Room Air 21 04/25/18 08:00 97.4 71 22 124/64 (84) 97 97.4 04/25/18 04:40 97.9 62 18 158/80 (106) 93 97.9 04/25/18 00:50 98.7 67 19 124/57 (79) 91 98.7 04/24/18 21:07 114/63 04/24/18 21:00 Room Air 04/24/18 20:17 73 18 96 Room Air 21 04/24/18 20:15 73 18 95 Room Air 21 04/24/18 20:13 97.5 69 18 114/63 (80) 95 97.5 04/24/18 16:00 97.1 58 22 140/77 (98) 97 97.1 Intake and Output 04/24/18 04/25/18 19:00 07:00 Intake Total 1520 ml Output Total 4125 ml 1600 ml Balance -2605 ml -1600 ml Intake Oral 720 ml Other 800 ml Output Urine Total 4125 ml 1600 ml # Voids 1 6 Height (Feet): 6 Height (Inches): 3.00 Weight (Pounds): 321 Cardiovascular: normal rate Respiratory/Chest: lungs clear Abdomen: soft Brittney Shepard MD Apr 25, 2018 15:00
[2018-04-25 16:00] VITALS: BP 130/73
[2018-04-25 20:00] VITALS: BP 123/62
[2018-04-25] MEDS: Atorvastatin 20mg tab ORAL SCH (20:35)
[2018-04-26 04:00] VITALS: BP 126/60
[2018-04-26] MEDS: HYDROcodone/Acetamin 10/325 tab ORAL PRN ×3 (04:53→20:46)
[2018-04-26 08:22] VITALS: BP 129/73
[2018-04-26] MEDS: Advair 250/50 Inhaler - 14 dose INH SCH ×2 (08:55→20:05)
[2018-04-26] MEDS: Montelukast 10mg tablet ORAL SCH (09:17)
[2018-04-26] MEDS: Aspirin Baby 81mg ORAL SCH (09:17)
[2018-04-26] MEDS: Benazepril 10mg tab ORAL SCH ×2 (09:17→20:40)
[2018-04-26] MEDS ORDERED: Heparin 2000 units/Ns 1000ml INJ ONE (11:15)
[2018-04-26] MEDS ORDERED: Lidocaine 1% Plain 30 ml INJ ONE (11:15)
[2018-04-26 11:24] VITALS: BP 109/62
--- NOTE | 2018-04-26 13:14 | Cardiac Electrophysiology PN ---
Assessment/Plan Assessment/Plan 1. Congestive heart failure due to diastolic dysfunction EF 65%. Continue Lasix 40 mg IV b.i.d. 2. Hypertension. Continue Lasix 40 iv bid and benazepril 20 mg bid 3. Chronic obstructive pulmonary disease on albuterol and Advair. 4. Hyperlipidemia on Lipitor. 5. Morbid obesity. 6. Anemia. DW RN Subjective Subjective Diuresing well.No CP or SOB. Objective Last 24 Hour Vital Signs Date Time Temp Pulse Resp B/P (MAP) Pulse Ox O2 Delivery O2 Flow Rate FiO2 04/26/18 11:24 97.7 63 18 109/62 (78) 94 97.7 04/26/18 09:17 129/73 04/26/18 09:00 Room Air 04/26/18 08:59 86 20 96 Room Air 21 04/26/18 08:59 86 20 94 Room Air 21 04/26/18 08:22 97.5 68 20 129/73 (91) 95 97.5 04/26/18 04:00 98.9 61 18 126/60 (82) 93 98.9 04/25/18 21:00 Room Air 04/25/18 20:35 123/62 04/25/18 20:00 98.1 70 19 123/62 (82) 92 98.1 04/25/18 19:28 72 18 98 Room Air 21 04/25/18 19:28 63 18 98 Room Air 21 04/25/18 18:59 98.6 04/25/18 16:00 98.6 60 21 130/73 (92) 99 98.6 Intake and Output 04/25/18 04/26/18 19:00 07:00 Intake Total 960 ml 1480 ml Output Total 1700 ml 2900 ml Balance -740 ml -1420 ml Intake Oral 960 ml 1480 ml Output Urine Total 1700 ml 2900 ml # Voids 4 2 Objective HEAD AND NECK: No JVD. LUNGS: Clear. CARDIOVASCULAR: Regular S1 and S2 with no gallop or murmur. ABDOMEN: Soft. EXTREMITIES: 2+ bilateral pitting edema. Prosper Crum MD Apr 26, 2018 13:14
[2018-04-26 15:38] VITALS: BP 127/74
--- NOTE | 2018-04-26 16:07 | General Progress Note ---
Assessment/Plan Problem List: (1) Nausea & vomiting ICD Codes: R11.2 - Nausea with vomiting, unspecified SNOMED: 22960256 (2) Edema ICD Codes: R60.9 - Edema, unspecified SNOMED: 929050300, 777553898 (3) CHF (congestive heart failure) ICD Codes: I50.9 - Heart failure, unspecified SNOMED: 89368670 Status: progressing Assessment/Plan chf exacerbation leg edema orthopnea still has somewhat dyspnea afebrile reviewed chart and labs Subjective ROS Limited/Unobtainable: Yes Allergies: Coded Allergies: PENICILLINS (Verified Allergy, Unknown, 08/31/17) TRAMADOL (Verified Allergy, Unknown, 08/31/17) Objective Last 24 Hour Vital Signs Date Time Temp Pulse Resp B/P (MAP) Pulse Ox O2 Delivery O2 Flow Rate FiO2 04/26/18 15:38 97.2 62 20 127/74 (91) 93 97.2 04/26/18 11:24 97.7 63 18 109/62 (78) 94 97.7 04/26/18 09:17 129/73 04/26/18 09:00 Room Air 04/26/18 08:59 86 20 96 Room Air 21 04/26/18 08:59 86 20 94 Room Air 21 04/26/18 08:22 97.5 68 20 129/73 (91) 95 97.5 04/26/18 04:00 98.9 61 18 126/60 (82) 93 98.9 04/25/18 21:00 Room Air 04/25/18 20:35 123/62 04/25/18 20:00 98.1 70 19 123/62 (82) 92 98.1 04/25/18 19:28 72 18 98 Room Air 21 04/25/18 19:28 63 18 98 Room Air 21 04/25/18 18:59 98.6 Intake and Output 04/25/18 04/26/18 19:00 07:00 Intake Total 960 ml 1480 ml Output Total 1700 ml 2900 ml Balance -740 ml -1420 ml Intake Oral 960 ml 1480 ml Output Urine Total 1700 ml 2900 ml # Voids 4 2 Height (Feet): 6 Height (Inches): 3.00 Weight (Pounds): 321 Cardiovascular: normal rate Respiratory/Chest: lungs clear Abdomen: soft Hadadz,Ali MD Apr 26, 2018 16:07
[2018-04-26] MEDS ORDERED: Tubing IV Secondary IV ONE (18:41)
[2018-04-26 20:00] VITALS: BP 135/79
[2018-04-26] MEDS ORDERED: Dyna-Hex 2% Top Sol 2oz TOPIC SCH (20:00)
[2018-04-26] MEDS: Atorvastatin 20mg tab ORAL SCH (20:38)
[2018-04-27] VITALS: BP 138/58
[2018-04-27 04:00] VITALS: BP 143/75
[2018-04-27] MEDS: HYDROcodone/Acetamin 10/325 tab ORAL PRN ×4 (04:16→20:44)
[2018-04-27 08:00] VITALS: BP_SYST 118; BP_SYST 137; BP_DIAS 43; BP_DIAS 68
[2018-04-27] MEDS: Benazepril 10mg tab ORAL SCH ×2 (08:45→20:45)
[2018-04-27] MEDS: Aspirin Baby 81mg ORAL SCH (08:46)
[2018-04-27] MEDS: Montelukast 10mg tablet ORAL SCH (08:46)
[2018-04-27] MEDS: Advair 250/50 Inhaler - 14 dose INH SCH ×2 (08:50→19:27)
--- NOTE | 2018-04-27 09:08 | General Progress Note ---
Assessment/Plan Assessment/Plan (1) B/L LE pain (2) Edema (3) B/L knee pain (4) B/L Knee OA (5) Morbid obesity Pt to be continued on [place]. An Rx for norco 5/325mg 15 tabs was written for Patient in anticipation for discharge. D/w Dr. Hurley and he concurred. Subjective Date patient seen: Apr 27, 2018 Time patient seen: 08:30 - am Allergies: Coded Allergies: PENICILLINS (Verified Allergy, Unknown, 08/31/17) TRAMADOL (Verified Allergy, Unknown, 08/31/17) Subjective REVIEW OF SYSTEMS: Denies rash, fever, chills, sweating, dizziness, drowsiness, blurred vision, sore throat, or change in weight. No shortness of breath or chest pain. No nausea, vomiting, diarrhea, or blood in the stool or urine. No bowel or bladder incontinence. No dysuria. He is complaining of bilateral lower extremity pain. SUBJECTIVE: Patient is in bed and showing no signs of pain or distress. Looking to do PT. Pain is tolerated on the [place]. Objective Last 24 Hour Vital Signs Date Time Temp Pulse Resp B/P (MAP) Pulse Ox O2 Delivery O2 Flow Rate FiO2 04/27/18 08:53 75 18 95 Room Air 21 04/27/18 08:51 75 18 95 Room Air 21 04/27/18 08:46 97.4 04/27/18 08:45 137/68 04/27/18 08:00 97.4 64 18 137/68 (91) 96 97.4 04/27/18 04:00 98.6 68 16 143/75 (97) 98 98.6 04/27/18 00:00 97.5 71 20 138/58 (84) 96 97.5 04/26/18 21:00 Room Air 04/26/18 20:40 139/75 04/26/18 20:06 86 18 94 Room Air 21 04/26/18 20:05 86 20 94 Room Air 21 04/26/18 20:00 97.5 75 18 135/79 (97) 93 97.5 04/26/18 15:38 97.2 62 20 127/74 (91) 93 97.2 04/26/18 11:24 97.7 63 18 109/62 (78) 94 97.7 04/26/18 09:17 129/73 Intake and Output 04/26/18 04/27/18 19:00 07:00 Intake Total 1320 ml 4800 ml Output Total 2700 ml 4000 ml Balance -1380 ml 800 ml Intake Oral 1320 ml 4000 ml Other 800 ml Output Urine Total 2700 ml 4000 ml # Voids 2 4 # Bowel Movements 5 Height (Feet): 6 Height (Inches): 3.00 Weight (Pounds): 321 Objective GENERAL: Alert, awake, and oriented. LUNGS: Decreased breath sounds bilaterally. HEART: S1 and S2 regular. ABDOMEN: Obese. EXTREMITIES: Severe edema noted in bilateral lower extremities. NEURO: No changes. Leonel Singer Apr 27, 2018 09:08
[2018-04-27 12:00] VITALS: BP 131/64
--- NOTE | 2018-04-27 15:44 | Cardiac Electrophysiology PN ---
Assessment/Plan Assessment/Plan 1. Congestive heart failure due to diastolic dysfunction EF 65%. Continue Lasix 40 mg IV b.i.d. Will get stat Chemistry and CBC 2. Hypertension. Continue Lasix 40 iv bid and benazepril 20 mg bid 3. Chronic obstructive pulmonary disease on albuterol and Advair. 4. Hyperlipidemia on Lipitor. 5. Morbid obesity. 6. Anemia. DW RN Subjective Subjective Diuresing well.No CP or SOB. RN at bedside Objective Last 24 Hour Vital Signs Date Time Temp Pulse Resp B/P (MAP) Pulse Ox O2 Delivery O2 Flow Rate FiO2 04/27/18 12:00 97.7 55 18 131/64 (86) 99 97.7 04/27/18 09:16 97.4 04/27/18 09:00 Room Air 04/27/18 08:53 75 18 95 Room Air 21 04/27/18 08:51 75 18 95 Room Air 21 04/27/18 08:46 97.4 04/27/18 08:45 137/68 04/27/18 08:00 97.4 64 18 137/68 (91) 96 97.4 04/27/18 04:00 98.6 68 16 143/75 (97) 98 98.6 04/27/18 00:00 97.5 71 20 138/58 (84) 96 97.5 04/26/18 21:00 Room Air 04/26/18 20:40 139/75 04/26/18 20:06 86 18 94 Room Air 21 04/26/18 20:05 86 20 94 Room Air 21 04/26/18 20:00 97.5 75 18 135/79 (97) 93 97.5 04/26/18 15:38 97.2 62 20 127/74 (91) 93 97.2 Intake and Output 04/26/18 04/27/18 19:00 07:00 Intake Total 1320 ml 4800 ml Output Total 2700 ml 4000 ml Balance -1380 ml 800 ml Intake Oral 1320 ml 4000 ml Other 800 ml Output Urine Total 2700 ml 4000 ml # Voids 2 4 # Bowel Movements 5 Objective HEAD AND NECK: No JVD. LUNGS: Clear. CARDIOVASCULAR: Regular S1 and S2 with no gallop or murmur. ABDOMEN: Soft. EXTREMITIES: 2+ pitting edema. Prosper Crum MD Apr 27, 2018 15:44
--- NOTE | 2018-04-27 15:45 | General Progress Note ---
Assessment/Plan Problem List: (1) Nausea & vomiting ICD Codes: R11.2 - Nausea with vomiting, unspecified SNOMED: 10669936 (2) Edema ICD Codes: R60.9 - Edema, unspecified SNOMED: 833630224, 645583136 (3) CHF (congestive heart failure) ICD Codes: I50.9 - Heart failure, unspecified SNOMED: 41224330 Status: progressing Assessment/Plan chf exacerbation leg edema is improving chf is improvineg orthopnea still has somewhat dyspnea afebrile reviewed chart and labs Subjective ROS Limited/Unobtainable: Yes Constitutional: Reports: no symptoms Allergies: Coded Allergies: PENICILLINS (Verified Allergy, Unknown, 08/31/17) TRAMADOL (Verified Allergy, Unknown, 08/31/17) Objective Last 24 Hour Vital Signs Date Time Temp Pulse Resp B/P (MAP) Pulse Ox O2 Delivery O2 Flow Rate FiO2 04/27/18 12:00 97.7 55 18 131/64 (86) 99 97.7 04/27/18 09:16 97.4 04/27/18 09:00 Room Air 04/27/18 08:53 75 18 95 Room Air 21 04/27/18 08:51 75 18 95 Room Air 21 04/27/18 08:46 97.4 04/27/18 08:45 137/68 04/27/18 08:00 97.4 64 18 137/68 (91) 96 97.4 04/27/18 04:00 98.6 68 16 143/75 (97) 98 98.6 04/27/18 00:00 97.5 71 20 138/58 (84) 96 97.5 04/26/18 21:00 Room Air 04/26/18 20:40 139/75 04/26/18 20:06 86 18 94 Room Air 21 04/26/18 20:05 86 20 94 Room Air 21 04/26/18 20:00 97.5 75 18 135/79 (97) 93 97.5 Intake and Output 04/26/18 04/27/18 19:00 07:00 Intake Total 1320 ml 4800 ml Output Total 2700 ml 4000 ml Balance -1380 ml 800 ml Intake Oral 1320 ml 4000 ml Other 800 ml Output Urine Total 2700 ml 4000 ml # Voids 2 4 # Bowel Movements 5 Height (Feet): 6 Height (Inches): 3.00 Weight (Pounds): 321 Neck: supple Cardiovascular: normal rate Respiratory/Chest: lungs clear Abdomen: soft Brittney Shepard MD Apr 27, 2018 15:45
[2018-04-27 16:00] VITALS: BP 135/73
[2018-04-27 16:47] LABS: BASOPHILS % (AUTO) 2.2 % (0.0-2.0); EOSINOPHILS % (AUTO) 12.5 % (0.0-3.0); HEMATOCRIT 35.7 % (42.0-52.0); HEMOGLOBIN 11.4 G/DL (14.2-18.0); LYMPHOCYTES % (AUTO) 39.7 % (20.0-45.0); MEAN CORPUSCULAR VOLUME 79 FL (80-99); MONOCYTES % (AUTO) 15.2 % (1.0-10.0); NEUTROPHILS % (AUTO) 30.4 % (45.0-75.0); PLATELET COUNT 244 K/UL (150-450); RED CELL DISTRIBUTION WIDTH 14.3 % (11.6-14.8)
[2018-04-27 16:54] LABS: ANION GAP 3 mmol/L (5-15); BLOOD UREA NITROGEN 33 mg/dL (7-18); CALCIUM 9.7 MG/DL (8.5-10.1); CARBON DIOXIDE 33 MMOL/L (21-32); CHLORIDE 102 MMOL/L (98-107); CREATININE 1.2 MG/DL (0.55-1.30); POTASSIUM 4.1 MMOL/L (3.5-5.1); SODIUM 138 MMOL/L (136-145)
[2018-04-27 20:00] VITALS: BP 141/87
[2018-04-27] MEDS: Atorvastatin 20mg tab ORAL SCH (20:45)
[2018-04-28] VITALS: BP 153/85
[2018-04-28 04:00] VITALS: BP 143/93
[2018-04-28] MEDS: HYDROcodone/Acetamin 10/325 tab ORAL PRN ×5 (04:37→23:10)
[2018-04-28 08:00] VITALS: BP 128/51
[2018-04-28] MEDS: Advair 250/50 Inhaler - 14 dose INH SCH ×2 (09:10→19:15)
[2018-04-28] MEDS: Aspirin Baby 81mg ORAL SCH (09:25)
[2018-04-28] MEDS: Benazepril 10mg tab ORAL SCH ×2 (09:26→20:04)
[2018-04-28] MEDS: Montelukast 10mg tablet ORAL SCH (09:26)
[2018-04-28 12:00] VITALS: BP 117/61
--- NOTE | 2018-04-28 13:33 | Cardiac Electrophysiology PN ---
Assessment/Plan Assessment/Plan 1. Congestive heart failure due to diastolic dysfunction EF 65%. Continue Lasix 40 mg IV b.i.d. Labs noted 2. Hypertension. Continue Lasix 40 iv bid and benazepril 20 mg bid 3. Chronic obstructive pulmonary disease on albuterol and Advair. 4. Hyperlipidemia on Lipitor. 5. Morbid obesity. 6. Anemia. JEANETTE RN Subjective Subjective Diuresing without CP or SOB. Objective Last 24 Hour Vital Signs Date Time Temp Pulse Resp B/P (MAP) Pulse Ox O2 Delivery O2 Flow Rate FiO2 04/28/18 09:57 97.1 04/28/18 09:27 97.1 04/28/18 09:26 128/51 04/28/18 09:15 73 18 95 Room Air 21 04/28/18 09:15 69 18 95 Room Air 21 04/28/18 09:00 Room Air 04/28/18 08:00 97.1 61 20 128/51 (76) 99 97.1 04/28/18 04:00 98.2 90 18 143/93 (110) 99 98.2 04/28/18 00:00 98.6 95 17 153/85 (107) 96 98.6 04/27/18 21:00 Room Air 04/27/18 20:45 147/89 04/27/18 20:00 98.6 99 18 141/87 (105) 99 98.6 04/27/18 19:27 69 18 96 Room Air 21 04/27/18 19:27 63 18 96 Room Air 21 04/27/18 16:19 97.7 04/27/18 16:00 98.7 56 17 135/73 (93) 95 98.7 Intake and Output 04/27/18 04/28/18 19:00 07:00 Intake Total 2000 ml Output Total 1500 ml 1400 ml Balance -1500 ml 600 ml Other 2000 ml Output Urine Total 1500 ml 1400 ml # Voids 5 # Bowel Movements 1 Laboratory Tests Test 04/27/18 15:40 White Blood Count 6.0 K/UL (4.8-10.8) Red Blood Count 4.50 M/UL (4.70-6.10) L Hemoglobin 11.4 G/DL (14.2-18.0) L Hematocrit 35.7 % (42.0-52.0) L Mean Corpuscular Volume 79 FL (80-99) L Mean Corpuscular Hemoglobin 25.4 PG (27.0-31.0) L Mean Corpuscular Hemoglobin Concent 32.1 G/DL (32.0-36.0) Red Cell Distribution Width 14.3 % (11.6-14.8) Platelet Count 244 K/UL (150-450) Mean Platelet Volume 7.6 FL (6.5-10.1) Neutrophils (%) (Auto) 30.4 % (45.0-75.0) L Lymphocytes (%) (Auto) 39.7 % (20.0-45.0) Monocytes (%) (Auto) 15.2 % (1.0-10.0) H Eosinophils (%) (Auto) 12.5 % (0.0-3.0) H Basophils (%) (Auto) 2.2 % (0.0-2.0) H Sodium Level 138 MMOL/L (136-145) Potassium Level 4.1 MMOL/L (3.5-5.1) Chloride Level 102 MMOL/L (98-107) Carbon Dioxide Level 33 MMOL/L (21-32) H Anion Gap 3 mmol/L (5-15) L Blood Urea Nitrogen 33 mg/dL (7-18) H Creatinine 1.2 MG/DL (0.55-1.30) Estimat Glomerular Filtration Rate > 60 mL/min (>60) Glucose Level 95 MG/DL (74-106) Calcium Level 9.7 MG/DL (8.5-10.1) Objective HEAD AND NECK: No JVD. LUNGS: Clear. CARDIOVASCULAR: Regular S1 and S2 with no gallop or murmur. ABDOMEN: Soft. EXTREMITIES: 2+ pitting edema. Prosper Crum MD Apr 28, 2018 13:33
[2018-04-28 16:00] VITALS: BP 127/62
[2018-04-28 20:00] VITALS: BP 106/58
[2018-04-28] MEDS: Atorvastatin 20mg tab ORAL SCH (20:04)
--- NOTE | 2018-04-28 22:25 | General Progress Note ---
Assessment/Plan Problem List: (1) Nausea & vomiting ICD Codes: R11.2 - Nausea with vomiting, unspecified SNOMED: 26890513 (2) Edema ICD Codes: R60.9 - Edema, unspecified SNOMED: 068905314, 297543994 (3) CHF (congestive heart failure) ICD Codes: I50.9 - Heart failure, unspecified SNOMED: 61258219 Status: progressing Assessment/Plan chf exacerbation leg edema is improving chf is improvineg check labs and reviewed chart Subjective ROS Limited/Unobtainable: Yes Constitutional: Reports: no symptoms Allergies: Coded Allergies: PENICILLINS (Verified Allergy, Unknown, 08/31/17) TRAMADOL (Verified Allergy, Unknown, 08/31/17) Objective Last 24 Hour Vital Signs Date Time Temp Pulse Resp B/P (MAP) Pulse Ox O2 Delivery O2 Flow Rate FiO2 04/28/18 20:04 106/58 04/28/18 20:00 97.2 65 18 106/58 (74) 96 97.2 04/28/18 19:19 71 18 95 Room Air 21 04/28/18 19:19 65 18 96 Room Air 21 04/28/18 18:30 97.2 04/28/18 18:00 97.2 04/28/18 16:00 97.2 61 21 127/62 (83) 98 97.2 04/28/18 13:47 97.6 04/28/18 12:00 97.6 56 22 117/61 (79) 98 97.6 04/28/18 09:27 97.1 04/28/18 09:26 128/51 04/28/18 09:15 73 18 95 Room Air 21 04/28/18 09:15 69 18 95 Room Air 21 04/28/18 09:00 Room Air 04/28/18 08:00 97.1 61 20 128/51 (76) 99 97.1 04/28/18 04:00 98.2 90 18 143/93 (110) 99 98.2 04/28/18 00:00 98.6 95 17 153/85 (107) 96 98.6 Intake and Output 04/27/18 04/28/18 19:00 07:00 Intake Total 2000 ml Output Total 1500 ml 1400 ml Balance -1500 ml 600 ml Other 2000 ml Output Urine Total 1500 ml 1400 ml # Voids 5 # Bowel Movements 1 Height (Feet): 6 Height (Inches): 3.00 Weight (Pounds): 321 Cardiovascular: normal rate Respiratory/Chest: lungs clear Abdomen: soft Brittney Shepard MD Apr 28, 2018 22:25
[2018-04-29] VITALS: BP 119/58
[2018-04-29 04:00] VITALS: BP 138/78
[2018-04-29] MEDS: HYDROcodone/Acetamin 10/325 tab ORAL PRN ×4 (04:42→20:08)
[2018-04-29 08:00] VITALS: BP 118/55
[2018-04-29] MEDS: Aspirin Baby 81mg ORAL SCH (09:05)
[2018-04-29] MEDS: Benazepril 10mg tab ORAL SCH ×2 (09:05→20:10)
[2018-04-29] MEDS: Montelukast 10mg tablet ORAL SCH (09:05)
[2018-04-29] MEDS: Advair 250/50 Inhaler - 14 dose INH SCH ×3 (09:11→22:34)
[2018-04-29 12:00] VITALS: BP 120/58
[2018-04-29 16:00] VITALS: BP 119/61
--- NOTE | 2018-04-29 16:10 | Cardiac Electrophysiology PN ---
Assessment/Plan Assessment/Plan 1. Congestive heart failure due to diastolic dysfunction EF 65%. Continue Lasix 40 mg IV b.i.d. until discharge 2. Hypertension. Continue Lasix 40 iv bid and benazepril 20 mg bid 3. Chronic obstructive pulmonary disease on albuterol and Advair. 4. Hyperlipidemia on Lipitor. 5. Morbid obesity. 6. Anemia. JEANETTE RN and case management Subjective Subjective Diuresing well. No CP Objective Last 24 Hour Vital Signs Date Time Temp Pulse Resp B/P (MAP) Pulse Ox O2 Delivery O2 Flow Rate FiO2 04/29/18 12:00 97.5 62 18 120/58 (78) 97 97.5 04/29/18 09:15 73 18 95 Room Air 21 04/29/18 09:15 75 18 95 Room Air 21 04/29/18 09:05 118/55 04/29/18 08:45 Room Air 04/29/18 08:00 97.6 59 18 118/55 (76) 95 97.6 04/29/18 05:12 96.8 04/29/18 04:00 96.8 62 19 138/78 (98) 95 96.8 04/29/18 00:00 97.5 71 18 119/58 (78) 95 97.5 04/28/18 21:00 Room Air 04/28/18 20:04 106/58 04/28/18 20:00 97.2 65 18 106/58 (74) 96 97.2 04/28/18 19:19 71 18 95 Room Air 21 04/28/18 19:19 65 18 96 Room Air 21 04/28/18 18:00 97.2 Intake and Output 04/28/18 04/29/18 19:00 07:00 Intake Total 1200 ml 500 ml Output Total 1500 ml 1000 ml Balance -300 ml -500 ml Intake Oral 1200 ml 500 ml Output Urine Total 1500 ml 1000 ml # Voids 6 Objective HEAD AND NECK: No JVD. LUNGS: Clear. CARDIOVASCULAR: Regular S1 and S2 with no gallop or murmur. ABDOMEN: Soft. EXTREMITIES: 2+ pitting edema. Prosper Crum MD Apr 29, 2018 16:10
[2018-04-29 20:00] VITALS: BP 119/69
--- NOTE | 2018-04-29 20:02 | General Progress Note ---
Assessment/Plan Problem List: (1) Nausea & vomiting ICD Codes: R11.2 - Nausea with vomiting, unspecified SNOMED: 95391687 (2) Edema ICD Codes: R60.9 - Edema, unspecified SNOMED: 790281520, 492042692 (3) CHF (congestive heart failure) ICD Codes: I50.9 - Heart failure, unspecified SNOMED: 98573697 Status: progressing Assessment/Plan chf exacerbation on iv lasix dc in am edema is much improved leg edema is improving chf is improvineg check labs and reviewed chart Subjective ROS Limited/Unobtainable: Yes Allergies: Coded Allergies: PENICILLINS (Verified Allergy, Unknown, 08/31/17) TRAMADOL (Verified Allergy, Unknown, 08/31/17) Objective Last 24 Hour Vital Signs Date Time Temp Pulse Resp B/P (MAP) Pulse Ox O2 Delivery O2 Flow Rate FiO2 04/29/18 16:00 97.6 56 18 119/61 (80) 95 97.6 04/29/18 12:00 97.5 62 18 120/58 (78) 97 97.5 04/29/18 09:15 73 18 95 Room Air 21 04/29/18 09:15 75 18 95 Room Air 21 04/29/18 09:05 118/55 04/29/18 08:45 Room Air 04/29/18 08:00 97.6 59 18 118/55 (76) 95 97.6 04/29/18 05:12 96.8 04/29/18 04:00 96.8 62 19 138/78 (98) 95 96.8 04/29/18 00:00 97.5 71 18 119/58 (78) 95 97.5 04/28/18 21:00 Room Air 04/28/18 20:04 106/58 Intake and Output 04/28/18 04/29/18 19:00 07:00 Intake Total 1200 ml 500 ml Output Total 1500 ml 1000 ml Balance -300 ml -500 ml Intake Oral 1200 ml 500 ml Output Urine Total 1500 ml 1000 ml # Voids 6 Height (Feet): 6 Height (Inches): 3.00 Weight (Pounds): 321 Cardiovascular: normal rate Respiratory/Chest: lungs clear Abdomen: soft Brittney Shepard MD Apr 29, 2018 20:02
[2018-04-29] MEDS: Atorvastatin 20mg tab ORAL SCH (20:10)
[2018-04-30] VITALS: BP 129/78
[2018-04-30] MEDS: HYDROcodone/Acetamin 10/325 tab ORAL PRN ×2 (00:54→07:49)
[2018-04-30 04:00] VITALS: BP 105/80
[2018-04-30 08:30] VITALS: BP 115/84
--- NOTE | 2018-04-30 08:36 | General Progress Note ---
Assessment/Plan Assessment/Plan (1) B/L LE pain (2) Edema (3) B/L knee pain (4) B/L Knee OA (5) Morbid obesity Pt to be continued on [place]. D/w Dr. Hurley and he concurred. Subjective Date patient seen: Apr 30, 2018 Time patient seen: 07:30 - AM Allergies: Coded Allergies: PENICILLINS (Verified Allergy, Unknown, 08/31/17) TRAMADOL (Verified Allergy, Unknown, 08/31/17) Subjective REVIEW OF SYSTEMS: Denies rash, fever, chills, sweating, dizziness, drowsiness, blurred vision, sore throat, or change in weight. No shortness of breath or chest pain. No nausea, vomiting, diarrhea, or blood in the stool or urine. No bowel or bladder incontinence. No dysuria. He is complaining of bilateral lower extremity pain. SUBJECTIVE: Patient shows no signs of pain or distress. Pain has been tolerated on the [place] as needed. He has no new complaints. Objective Last 24 Hour Vital Signs Date Time Temp Pulse Resp B/P (MAP) Pulse Ox O2 Delivery O2 Flow Rate FiO2 04/30/18 08:01 69 18 96 Room Air 21 04/30/18 08:01 68 18 96 Room Air 21 04/30/18 04:00 97.6 61 18 105/80 (88) 97 97.6 04/30/18 00:00 97.9 89 18 129/78 (95) 97 97.9 04/29/18 22:35 74 18 95 Room Air 21 04/29/18 22:34 71 18 95 Room Air 21 04/29/18 21:00 Room Air 04/29/18 20:10 119/69 04/29/18 20:00 98.2 65 18 119/69 (86) 97 98.2 04/29/18 16:00 97.6 56 18 119/61 (80) 95 97.6 04/29/18 12:00 97.5 62 18 120/58 (78) 97 97.5 04/29/18 09:15 73 18 95 Room Air 21 04/29/18 09:15 75 18 95 Room Air 21 04/29/18 09:05 118/55 04/29/18 08:45 Room Air Intake and Output 04/29/18 04/30/18 19:00 07:00 Intake Total 1400 ml 800 ml Output Total 1100 ml Balance 1400 ml -300 ml Intake Oral 1400 ml Other 800 ml Output Urine Total 1100 ml # Voids 8 3 Height (Feet): 6 Height (Inches): 3.00 Weight (Pounds): 303 Objective GENERAL: Alert, awake, and oriented. LUNGS: Decreased breath sounds bilaterally. HEART: S1 and S2 regular. ABDOMEN: Obese. EXTREMITIES: Severe edema noted in bilateral lower extremities. NEURO: No changes. Leonel Singer Apr 30, 2018 08:36
[2018-04-30] MEDS: Benazepril 10mg tab ORAL SCH (08:39)
[2018-04-30] MEDS: Montelukast 10mg tablet ORAL SCH (08:39)
[2018-04-30] MEDS: Aspirin Baby 81mg ORAL SCH (08:39)
[2018-04-30] MEDS ORDERED: FUROSEMIDE40 MG ORAL (10:07)
[2018-04-30] MEDS ORDERED: BENAZEPRIL HCL20 MG ORAL (10:08)
[2018-04-30] MEDS ORDERED: LIPITOR20 MG ORAL (10:09)
[2018-04-30] MEDS ORDERED: NORCO 5-325 TA1 EACH ORAL (10:10)
[2018-04-30 12:00] VITALS: BP 121/55
--- NOTE | 2018-04-30 13:42 | Cardiac Electrophysiology PN ---
Assessment/Plan Assessment/Plan 1. Congestive heart failure due to diastolic dysfunction EF 65%. Change Lasix to 40 mg po daily 2. Hypertension. Continue Lasix 40 and benazepril 20 mg bid 3. Chronic obstructive pulmonary disease on albuterol and Advair. 4. Hyperlipidemia on Lipitor. 5. Morbid obesity. 6. Anemia. JEANETTE RN OK to DC Subjective Subjective Diuresing well. No CP. DC in progress Objective Last 24 Hour Vital Signs Date Time Temp Pulse Resp B/P (MAP) Pulse Ox O2 Delivery O2 Flow Rate FiO2 04/30/18 12:00 98.1 57 19 121/55 (77) 94 98.1 04/30/18 09:00 Room Air 21 04/30/18 09:00 Room Air 21 04/30/18 08:45 Room Air 04/30/18 08:39 113/54 04/30/18 08:30 97.4 58 18 115/84 (94) 95 97.4 04/30/18 04:00 97.6 61 18 105/80 (88) 97 97.6 04/30/18 00:00 97.9 89 18 129/78 (95) 97 97.9 04/29/18 22:35 74 18 95 Room Air 21 04/29/18 22:34 71 18 95 Room Air 21 04/29/18 21:00 Room Air 04/29/18 20:10 119/69 04/29/18 20:00 98.2 65 18 119/69 (86) 97 98.2 04/29/18 16:00 97.6 56 18 119/61 (80) 95 97.6 Intake and Output 04/29/18 04/30/18 19:00 07:00 Intake Total 1400 ml 800 ml Output Total 1100 ml Balance 1400 ml -300 ml Intake Oral 1400 ml Other 800 ml Output Urine Total 1100 ml # Voids 8 3 Objective HEAD AND NECK: No JVD. LUNGS: Clear. CARDIOVASCULAR: Regular S1 and S2 with no gallop or murmur. ABDOMEN: Soft. EXTREMITIES: 2+ pitting edema. Prosper Crum MD Apr 30, 2018 13:42
--- NOTE | 2018-05-01 12:51 | Discharge Summary ---
Discharge Summary Discharge Summary _ DATE OF ADMISSION: 04/22/2018 DATE OF DISCHARGE: 04/30/2018 CONSULTANTS: Dr. Prosper Hurley BRIEF HOSPITAL COURSE: Patient is a 62-year-old male, who had been complaining of dizziness for past 3 weeks and with worsening lower extremity edema and accompanying shortness of breath presented to ED because edema was getting worse. Patient was noncompliant with medications. He has medical history significant for CHF, hypertension, asthma, chronic pain syndrome and hyperlipidemia. On evaluation at ED, vital signs were stable. Patient had significant edema and was unable to ambulate. Blood work showed slight anemia, hemoglobin 10.6, hematocrit 33. BNP 226. Troponin was negative. EKG showed normal sinus rhythm with no acute changes. Chest x-ray with no acute disease. He was admitted for CHF exacerbation with worsening leg edema. He was seen by can labeler. He was given Lasix 40 mg IV twice a day. Patient has elevated blood pressure and was given lisinopril 20 mg daily. He was given Lipitor. He was placed on Advair and Spiriva for COPD. He complained of bilateral lower extremity pain. He was given pain management. He was continued on [place] prn. Bilateral knee x-ray showed degenerative changes with no acute bony trauma. Venous duplex of lower extremity was negative for DVT. Leg swelling improved. Nausea resolved. He was diuresing well. IV Lasix was changed to po. Vital signs were stable. He was saturating well on room air. He was cleared for discharge home. FINAL DIAGNOSES: Acute on chronic diastolic congestive heart failure, EF 65% Hypertension COPD Hyperlipidemia Morbid obesity Anemia Bilateral knee osteoarthritis Nausea and vomiting DISPOSITION: Patient was discharged home. DISCHARGE MEDICATIONS: Refer to Discharge Medication List. DISCHARGE INSTRUCTIONS: Follow up with PCP in a week. Follow-up with can labeler of choice in a week. I have been assigned to dictate discharge summary on this account, and I was not involved in the patient's management. Brooklyn Francis NP May 01, 2018 12:51
== END 2018-04-30 14:35 | disposition home or self-care (01) | DRG 194 ==
LOC: EMR 19:27 → 4E 20:44 → EDBEDREQ 20:56 → 4E 04-23 21:13
DX: I11.0 Hypertensive heart disease with heart failure (principal); E66.01 Morbid (severe) obesity due to excess calories; J44.9 Chronic obstructive pulmonary disease, unspecified; I50.33 Acute on chronic diastolic (congestive) heart failure; E78.5 Hyperlipidemia, unspecified; D64.9 Anemia, unspecified; M17.0 Bilateral primary osteoarthritis of knee; Z91.14 Patient's other noncompliance with medication regimen; Z88.6 Allergy status to analgesic agent; Z88.0 Allergy status to penicillin; G89.4 Chronic pain syndrome; Z87.891 Personal history of nicotine dependence; Z79.82 Long term (current) use of aspirin
CPT/HCPCS: 36415; 71045; 80048; 80053; 82550; 82553; 83880; 84484; 85025; 93005; 93306; 93970; 94640; 96374; 99285; J7620

== ENCOUNTER 2018-05-13 13:33 | Inpatient (IN) | payer MEDICAID ==
[~2018-05-13] VITALS: Ht 190.5 cm; Wt 151.3 kg
[~2018-05-13 13:33] MED LIST changes: +ADVAIR 250-501 EACH INH; +LIPITOR20 MG ORAL; +NORCO 5-325 TA1 EACH ORAL; +SPIRIVA18 MCG INH
--- NOTE | 2018-05-13 13:50 | Emergency Room Report ---
History of Present Illness General Chief Complaint: Edema Source: Patient Present Illness HPI Patient is 62-year-old male brought in by EMS after increased difficulty breathing for the past 2 days. Patient prior history of asthma as well as congestive heart failure. He reports being compliant with his Lasix. He reports having increased discomfort to both legs as well as increased swelling. He reports having increased orthopnea. Patient been taking Advair inhalers as well as oral Lasix 20 mg twice a day. He reported having a slightly decreased urine output. Allergies: Coded Allergies: PENICILLINS (Verified Allergy, Unknown, 08/31/17) TRAMADOL (Verified Allergy, Unknown, 08/31/17) Patient History Past Medical History: see triage record Reviewed Nursing Documentation: PMH: Agreed; PSxH: Agreed Nursing Documentation-PMH Hx Hypertension: Yes Hx Asthma: Yes Hx Cancer: No Hx Gastrointestinal Problems: No Hx Neurological Problems: No Review of Systems All Other Systems: negative except mentioned in HPI Physical Exam Vital Signs Date Time Temp Pulse Resp B/P (MAP) Pulse Ox O2 Delivery O2 Flow Rate FiO2 05/13/18 13:36 97.6 89 24 117/67 95 Room Air 97.5 Sp02 EP Interpretation: reviewed, normal General Appearance: normal inspection, alert, GCS 15, obese, Chronically Ill Head: atraumatic ENT: normal ENT inspection, hearing grossly normal, normal voice Neck: normal inspection, full range of motion, supple, no bony tend Respiratory: normal inspection, no retraction, crackles, wheezing, expiration Cardiovascular #1: regular rate, rhythm, edema Gastrointestinal: normal inspection, normal bowel sounds, non tender, soft, no guarding, no hernia Genitourinary: no CVA tenderness Musculoskeletal: normal inspection, back normal, decreased range of motion Neurologic: normal inspection, alert, oriented x3, responsive, monitor tech III-XII nml as tested, motor strength/tone normal, speech normal Psychiatric: normal inspection, judgement/insight normal, mood/affect normal Skin: no rash, other - venous stasis changes to both legs Medical Decision Making Diagnostic Impression: Primary Impression: CHF (congestive heart failure) Additional Impression: COPD exacerbation ER Course Patient presented for shortness of breath. Differential included but was not limited to anemia, pneumonia, pneumothorax, myocardial infarction, pericardial effusion, congestive heart failure, acidosis. Because of complexity of patient 's case laboratory testing and imaging studies were ordered.Chest x-ray one view interpreted by me showed hypoventilatory film without evident infiltrate. The patient was given breathing treatments as well as IV steroids. The patient was noted to have chronic venostasis to his lower extremities. Patient was given IV Lasix with some improvement in symptoms.Dr. Brittney Liu was contacted for inpatient management due to panel physician Labs Test 05/13/18 14:10 White Blood Count 7.4 K/UL (4.8-10.8) Red Blood Count 4.36 M/UL (4.70-6.10) Hemoglobin 10.6 G/DL (14.2-18.0) Hematocrit 35.2 % (42.0-52.0) Mean Corpuscular Volume 81 FL (80-99) Mean Corpuscular Hemoglobin 24.3 PG (27.0-31.0) Mean Corpuscular Hemoglobin Concent 30.1 G/DL (32.0-36.0) Red Cell Distribution Width 14.9 % (11.6-14.8) Platelet Count 201 K/UL (150-450) Mean Platelet Volume 8.8 FL (6.5-10.1) Neutrophils (%) (Auto) 46.7 % (45.0-75.0) Lymphocytes (%) (Auto) 33.8 % (20.0-45.0) Monocytes (%) (Auto) 9.7 % (1.0-10.0) Eosinophils (%) (Auto) 7.8 % (0.0-3.0) Basophils (%) (Auto) 2.1 % (0.0-2.0) Sodium Level 143 MMOL/L (136-145) Potassium Level 4.0 MMOL/L (3.5-5.1) Chloride Level 107 MMOL/L (98-107) Carbon Dioxide Level 30 MMOL/L (21-32) Anion Gap 6 mmol/L (5-15) Blood Urea Nitrogen 27 mg/dL (7-18) Creatinine 1.1 MG/DL (0.55-1.30) Estimat Glomerular Filtration Rate > 60 mL/min (>60) Glucose Level 106 MG/DL (74-106) Calcium Level 9.7 MG/DL (8.5-10.1) Total Bilirubin 0.2 MG/DL (0.2-1.0) Aspartate Amino Transf (AST/SGOT) 16 U/L (15-37) Alanine Aminotransferase (ALT/SGPT) 26 U/L (12-78) Alkaline Phosphatase 111 U/L (46-116) Total Creatine Kinase 148 U/L (26-308) Creatine Kinase MB 0.9 NG/ML (0.0-3.6) Creatine Kinase MB Relative Index 0.6 Troponin I 0.000 ng/mL (0.000-0.056) Pro-B-Type Natriuretic Peptide 95 pg/mL (0-125) Total Protein 8.0 G/DL (6.4-8.2) Albumin 3.1 G/DL (3.4-5.0) Globulin 4.9 g/dL Albumin/Globulin Ratio 0.6 (1.0-2.7) Lipase 158 U/L (73-393) EKG Diagnostic Results Rate: normal Rhythm: NSR ST Segments: no acute changes Last Vital Signs Date Time Temp Pulse Resp B/P (MAP) Pulse Ox O2 Delivery O2 Flow Rate FiO2 05/13/18 13:36 97.6 89 24 117/67 95 Room Air 97.5 Status: unchanged Disposition: ADMITTED INPATIENT Condition: Serious Otto Metcalf MD May 13, 2018 13:50
[2018-05-13] MEDS ORDERED: Norco 5mg/325mg tab ORAL ONE (14:00)
[2018-05-13] MEDS ORDERED: Solu-MEDROL 125mg Inj IVP ONE (14:00)
[2018-05-13] MEDS: Ipratropium 0.02% Inh Soln 2.5ml UD HHN SCH ×3 (14:30→14:59)
[2018-05-13] MEDS: Albuterol/Ipratropium 3ml neb HHN SCH ×4 (14:31→19:17)
[2018-05-13 14:46] VITALS: BP 117/67
[2018-05-13 14:50] LABS: BASOPHILS % (AUTO) 2.1 % (0.0-2.0); EOSINOPHILS % (AUTO) 7.8 % (0.0-3.0); HEMATOCRIT 35.2 % (42.0-52.0); HEMOGLOBIN 10.6 G/DL (14.2-18.0); LYMPHOCYTES % (AUTO) 33.8 % (20.0-45.0); MEAN CORPUSCULAR VOLUME 81 FL (80-99); MONOCYTES % (AUTO) 9.7 % (1.0-10.0); NEUTROPHILS % (AUTO) 46.7 % (45.0-75.0); PLATELET COUNT 201 K/UL (150-450); RED BLOOD COUNT 4.36 M/UL (4.70-6.10); RED CELL DISTRIBUTION WIDTH 14.9 % (11.6-14.8); WHITE BLOOD COUNT 7.4 K/UL (4.8-10.8)
[2018-05-13 15:04] LABS: ANION GAP 6 mmol/L (5-15); BLOOD UREA NITROGEN 27 mg/dL (7-18); CALCIUM 9.7 MG/DL (8.5-10.1); CARBON DIOXIDE 30 MMOL/L (21-32); CHLORIDE 107 MMOL/L (98-107); CREATININE 1.1 MG/DL (0.55-1.30); SODIUM 143 MMOL/L (136-145)
[2018-05-13 15:17] LABS: ALANINE AMINOTRANSFERASE 26 U/L (12-78); ALBUMIN 3.1 G/DL (3.4-5.0); ALBUMIN/GLOBULIN RATIO 0.6 (1.0-2.7); ALKALINE PHOSPHATASE 111 U/L (46-116); ASPARTATE AMINO TRANSFERASE 16 U/L (15-37); BILIRUBIN,TOTAL 0.2 MG/DL (0.2-1.0); CKMB 0.9 NG/ML (0.0-3.6); CREATINE KINASE 148 U/L (26-308)
[2018-05-13 16:23] VITALS: BP 120/53
--- NOTE | 2018-05-13 16:40 | Diagnostic Imaging Report ---
Indication: Shortness of breath Technique: One view of the chest Comparison: 04/22/2018 Findings: Suboptimal inspiration, resulting in crowding of the bronchovascular markings. No definite infiltrates, effusions, or congestion. No definite significant interim change Impression: Hypoventilatory exam. No definite acute process
[2018-05-13 18:00] VITALS: BP 110/46
--- NOTE | 2018-05-13 18:28 | Consultation ---
Consult Note Assessment/Plan DICT # [id number] Rashad Haji MD May 13, 2018 18:28
[2018-05-13] MEDS ORDERED: Azithromycin 250mg tab ORAL SCH (19:00)
[2018-05-13 20:00] VITALS: BP 133/60
[2018-05-13] MEDS ORDERED: Norco 5mg/325mg tab ORAL PRN (22:00)
[2018-05-13] MEDS: Atorvastatin 20mg tab ORAL SCH (23:17)
[2018-05-14] VITALS: BP 138/73
[2018-05-14] MEDS: Albuterol/Ipratropium 3ml neb HHN SCH ×4 (01:11→19:43)
--- NOTE | 2018-05-14 01:45 | Consultation ---
DATE OF CONSULTATION: 05/13/2018 PULMONARY CONSULTATION REFERRING PHYSICIAN: Brittney Shepard M.D. REASON FOR CONSULTATION: Shortness of breath. HISTORY OF PRESENT ILLNESS: The patient is a 62-year-old male, former smoker with a history of COPD, CHF, and hypertension, last discharged from the hospital on 04/30/2018. He was admitted with decompensated heart failure at that time and discharged home in stable condition. He also has obesity, possible underlying THERON and OHS. From a respiratory standpoint, he is on Advair only and Singulair. He does not follow up with a galley worker regularly. Nonetheless, he presented to the ER this afternoon with two days of shortness of breath, orthopnea, PND, and yellow phlegm production. No cough or wheezing. Increased bilateral lower extremity swelling is noted as well. He states he has been taking his Advair and Lasix 20 mg b.i.d. He has also noted decreased urine output over the course of the past few days. In the ER, he has been afebrile. Vital signs have been stable. He is saturating well on room air. White count 7.4, hemoglobin 10.6, and platelet count 201,000. His troponin was negative and his BNP is 95 and it was 226 on the 4th. Chest x-ray done in the emergency department and reviewed by myself with hypoventilatory with some bronchovascular crowding, but no significant abnormality otherwise. Of note, he had a CT of the chest done on 03/31/2018, which showed some faint scattered bilateral ground-glass opacities and hilar and mediastinal lymphadenopathy. No prior CT was available for comparison. He denies any history of malignancy or sarcoid or other lung pathology. PAST MEDICAL HISTORY: 1. CHF. 2. COPD. 3. Chronic lower extremity edema. 4. Obesity. 5. Possible THERON/OHV. 6. Hypertension. 7. Hyperlipidemia. 8. Chronic pain syndrome. PAST SURGICAL HISTORY: Right ankle surgery and appendectomy. ALLERGIES: Penicillin and tramadol. MEDICATIONS: Prior to admission, medications reviewed. Current medications reviewed. SOCIAL HISTORY: He denies any current tobacco, but states he smoked in the past. No alcohol or drug use. FAMILY HISTORY: Noncontributory. REVIEW OF SYSTEMS: Negative other than history of present illness. PHYSICAL EXAMINATION: VITAL SIGNS: Temperature 98.5, pulse 95, blood pressure 120/53, respiratory rate 20, and saturating 100% on room air. GENERAL: He is a well-developed and well-nourished male in no acute distress. Awake, alert, and oriented x3. HEENT: Normocephalic and atraumatic. Oropharynx is clear with moist mucous membranes. NECK: Supple without lymphadenopathy. He has JVD to the angle of the mandible. CHEST: Clear with bibasilar rales and faint scattered rhonchi. HEART: Regular rate and rhythm. ABDOMEN: Soft and nontender. EXTREMITIES: No cyanosis or clubbing. There is 3+ bilateral lower extremity edema. ANCILLARY DATA: Chest x-ray, hypoventilatory with bronchovascular crowding. Labs - white count 7.4, hemoglobin 10.6, platelet count 201,000, and MCV 81. Sodium 142, potassium 4, chloride 107, bicarbonate 30, BUN 27, and creatinine 1.1. LFTs normal. Troponin negative. BNP 95. Total protein 8. Albumin 3.1. Globulin 4.9. Lipase 158. FOBT from 03/31/2018 was negative. Last echocardiogram from 04/22/2018, LVEF 60% to 65% and mild LVH. No effusion. All other cardiac chambers within normal limits, focal aortic sclerosis, thickened mitral valve leaflets, mitral annulus root calcification. Normal pulmonic valve. Normal TR. IVC 3 cm without collapse. Mild TR. PA systolic of 33. Last CT of the chest from 03/31/2018 reviewed by myself shows some scattered bilateral ground-glass opacities, mediastinal and hilar lymphadenopathy. ASSESSMENT: The patient is a 62-year-old male, former smoker with a history of CHF with diastolic dysfunction, stated history of COPD, obesity, likely THERON, obesity hypoventilation, hypertension, and hyperlipidemia, presenting with shortness of breath in the setting of PND, orthopnea, and bilateral lower extremity edema, likely secondary to decompensated heart failure plus or minus an exacerbation of his underlying obstructive lung disease. Of note, he previously had a CT of the chest, which showed some faint diffuse bilateral ground-glass opacities and diffuse mediastinal and hilar adenopathy for which a would include reactive inflammatory edema, sarcoidosis, or neoplastic processes. PROBLEM LIST: 1. Shortness of breath and dyspnea likely secondary to decompensated heart failure and underlying obstructive lung disease. 2. Stated history of COPD with possible acute exacerbation. 3. Known faint bilateral ground-glass opacities with mediastinal and hilar lymphadenopathy. 4. CHF with mild diastolic dysfunction and acute decompensated heart failure. 5. Hypertension, hyperlipidemia. 6. Normocytic anemia. TREATMENT PLAN: 1. Optimize pulmonary hygiene/mobilize as tolerated. 2. PRN O2 to keep saturations greater than 90%. 3. [id number] and p.r.n. bronchodilators. 4. The patient received Solu-Medrol 125 in the ER. We will continue prednisone 60 mg p.o. daily. 5. PO azithromycin for anti-inflammatory effect (today is day 1 of 5). 6. Monitor volumes and renal function, we will start diuresis with IV Lasix. 7. Duplex lower extremities. 8. We will check a CT chest, abdomen, and pelvis to evaluate pulmonary nodules, adenopathy, and for any neoplastic process. 9. I have also sent off an angiotensin-converting enzyme and an LDH. 10. Cardiology evaluation. 11. Consider Hem/Onc evaluation given the discrepancy between the serum albumin and the total protein. I would consider a workup for plasma cell disorder. 12. DVT prophylaxis, heparin subcutaneous. 13. Aspiration precautions. Rashad Haji M.D. DR: TRAVIS JOB#: [id number] CC:
[2018-05-14] MEDS ORDERED: HYDROcodone/Acetamin 10/325 tab ORAL PRN (03:00)
[2018-05-14 04:00] VITALS: BP 137/64
[2018-05-14 07:24] LABS: BASOPHILS % (AUTO) 0.5 % (0.0-2.0); EOSINOPHILS % (AUTO) 0.1 % (0.0-3.0); HEMATOCRIT 33.7 % (42.0-52.0); HEMOGLOBIN 10.6 G/DL (14.2-18.0); LYMPHOCYTES % (AUTO) 25.9 % (20.0-45.0); MEAN CORPUSCULAR VOLUME 78 FL (80-99); MONOCYTES % (AUTO) 10.1 % (1.0-10.0); NEUTROPHILS % (AUTO) 63.4 % (45.0-75.0); PLATELET COUNT 207 K/UL (150-450); RED BLOOD COUNT 4.31 M/UL (4.70-6.10); RED CELL DISTRIBUTION WIDTH 14.3 % (11.6-14.8); WHITE BLOOD COUNT 8.8 K/UL (4.8-10.8)
[2018-05-14 07:34] LABS: ANION GAP 9 mmol/L (5-15); BLOOD UREA NITROGEN 31 mg/dL (7-18); CALCIUM 9.6 MG/DL (8.5-10.1); CARBON DIOXIDE 28 MMOL/L (21-32); CHLORIDE 105 MMOL/L (98-107); CREATININE 1.2 MG/DL (0.55-1.30); SODIUM 142 MMOL/L (136-145)
[2018-05-14 08:00] VITALS: BP 128/86
[2018-05-14] MEDS: Aspirin Baby 81mg ORAL SCH (08:10)
[2018-05-14] MEDS: Azithromycin 250mg tab ORAL SCH (08:11)
[2018-05-14] MEDS: Heparin 5000 units/ml inj SUBQ SCH ×3 (08:12→21:00)
--- NOTE | 2018-05-14 08:51 | Diagnostic Imaging Report ---
INDICATION: Shortness of breath. Bilateral leg swelling. Decreased urine output. Abnormal chest radiograph TECHNIQUE: Enteric contrast, reason not stated. IV administration nonionic contrast. Spiral acquisitions obtained through the chest, abdomen, and pelvis. Multiplanar reconstructions were generated. Total dose length product 1889.52 mGycm. CTDIvol(s) 23.44,20.73 mGy. Radiation dose was minimized using automated exposure control COMPARISON: Noncontrast chest CT dated 03/31/2018, noncontrast abdomen pelvis CT dated 09/01/2017 FINDINGS Chest: 11 mm nodular opacity in the right upper lobe, image 37 series 4, is unchanged. There are posterior dependent atelectatic changes, more evident previously. Previously demonstrated groundglass opacities are no longer evident. 3 mm nodule in the right lung apex, image 13 series 4 was also evident previously, equivocally more conspicuous currently. There tiny subpleural nodules are also again demonstrated bilaterally, somewhat more conspicuous on the previous and on the current exam.. No infiltrates or effusions. Normal heart size. No pericardial effusion. Previously demonstrated hilar prominence is demonstrated largely represent somewhat prominent central pulmonary arteries, although a single small 13 mm node is seen in the left hilum. Previously reported mediastinal lymphadenopathy appears stable or perhaps slightly less conspicuous than on the previous exam, clear and maximal tereza diameter. The included thyroid is unremarkable. No axillary or chest wall mass or adenopathy. Some prominent lower chest wall and upper abdominal collateral veins are again demonstrated. The bones are unremarkable. Minimal gynecomastia again demonstrated Abdomen pelvis: The appendix is only questionably demonstrated, but no definite findings to suggest acute appendicitis are evident. No small bowel distention. Stomach, duodenum are unremarkable. No free or loculated intraperitoneal gas or fluid. The liver, gallbladder, bile ducts, pancreas, spleen, adrenals, kidneys are all unremarkable. No retroperitoneal or mesenteric mass or adenopathy. No pelvic mass or adenopathy. The bones demonstrate degenerative spondylosis changes, are otherwise unremarkable. IMPRESSION: No acute thoracic or pulmonary process Multiple small right lung nodules, also previously reported, appearing unchanged. Given the relatively of the follow-up period, short interval 6-12 months follow-up is recommended if there is high risk for lung carcinoma. Otherwise, no follow-up is necessary Posterior dependent pulmonary atelectatic changes. Note interim clearing of pulmonary groundglass opacities from prior study of 03/31/2018 Borderline mediastinal lymphadenopathy, stable or perhaps minimally improved since previous study. Nonspecific as regards etiology Degenerative spondylosis changes This agrees with the preliminary interpretation provided overnight by [facility] teleradiology service. The CT scanner at [facility] is accredited by the [employer] and the scans are performed using protocols designed to limit radiation exposure to as low as reasonably achievable to attain images of sufficient resolution adequate for diagnostic evaluation.
[2018-05-14 08:54] LABS: ALANINE AMINOTRANSFERASE 28 U/L (12-78); ALBUMIN 2.9 G/DL (3.4-5.0); ALKALINE PHOSPHATASE 112 U/L (46-116); ASPARTATE AMINO TRANSFERASE 22 U/L (15-37); BILIRUBIN,DIRECT < 0.1 MG/DL (0.0-0.3); BILIRUBIN,TOTAL 0.2 MG/DL (0.2-1.0); CHOLESTEROL 153 MG/DL (< 200); CREATINE KINASE 144 U/L (26-308); FERRITIN 93 NG/ML (8-388); GAMMA GLUTAMYL TRANSPEPTIDASE 24 U/L (5-85); HDL CHOLESTEROL 58 MG/DL (40-60); PHOSPHORUS 4.3 MG/DL (2.5-4.9); TRIGLYCERIDES 16 MG/DL (30-150)
[2018-05-14] MEDS ORDERED: Advair 250/50 Inhaler - 14 dose INH SCH (09:00)
[2018-05-14 09:06] LABS: % IRON SATURATION 14 % (15-50); IRON 39 ug/dL (50-175); TOTAL IRON BINDING CAPACITY 282 ug/dL (250-450)
[2018-05-14] MEDS: Advair 250/50 Inhaler - 14 dose INH SCH ×2 (09:44→19:43)
[2018-05-14 10:24] LABS: APPEARANCE,URINE CLEAR; BILIRUBIN, URINE NEGATIVE (NEGATIVE); COLOR,URINE PALE YELLOW; GLUCOSE, URINE (UA) NEGATIVE (NEGATIVE); KETONES,URINE NEGATIVE (NEGATIVE); LEUKOCYTE ESTERASE ,URINE NEGATIVE (NEGATIVE); NITRITE,URINE NEGATIVE (NEGATIVE); PH,URINE 6 (4.5-8.0); PROTEIN,URINE NEGATIVE (NEGATIVE); UROBILINOGEN,URINE NORMAL MG/DL (0.0-1.0)
[2018-05-14] MEDS ORDERED: Norco 5mg/325mg tab ORAL PRN (11:04)
[2018-05-14 12:00] VITALS: BP 136/73
--- NOTE | 2018-05-14 12:57 | Pulmonology Progress Note ---
Assessment/Plan Problems: (1) CHF (congestive heart failure) (2) COPD exacerbation Assessment/Plan ASSESSMENT: The patient is a 62-year-old male, former smoker with a history of CHF with diastolic dysfunction, stated history of COPD, obesity, likely THERON, obesity hypoventilation, hypertension, and hyperlipidemia, presenting with shortness of breath in the setting of PND, orthopnea, and bilateral lower extremity edema, likely secondary to decompensated heart failure plus or minus an exacerbation of his underlying obstructive lung disease. Of note, he previously had a CT of the chest, which showed some faint diffuse bilateral ground-glass opacities and diffuse mediastinal and hilar adenopathy for which a differential would include reactive inflammatory edema, sarcoidosis, or neoplastic processes. PROBLEM LIST: 1. Shortness of breath and dyspnea likely secondary to decompensated heart failure and underlying obstructive lung disease. 2. Stated history of COPD with possible acute exacerbation. 3. Known faint bilateral ground-glass opacities with mediastinal and hilar lymphadenopathy - NODULES STABLE, LAD IMPROVED and GGO's RESOLVED 4. CHF with mild diastolic dysfunction and acute decompensated heart failure. 5. Hypertension, hyperlipidemia. 6. Normocytic anemia. TREATMENT PLAN: 1. Optimize pulmonary hygiene/mobilize as tolerated. 2. PRN O2 to keep saturations greater than 90%. 3. Feyud-ufg-oahuu and p.r.n. bronchodilators. 4. The patient received Solu-Medrol 125 in the ER. We will continue prednisone 60 mg p.o. daily (D2/5) 5. PO azithromycin for anti-inflammatory effect (D2/5). 6. Monitor volumes and renal function, continue IV lasix as able 7. F/U DUPLEX 8. F/U BETHANY and LDH 9. Cardiology evaluation. 10. Consider Hem/Onc evaluation given the discrepancy between the serum albumin and the total protein. I would consider a workup for plasma cell disorder. 12. DVT prophylaxis, heparin subcutaneous. 13. Aspiration precautions. Subjective Allergies: Coded Allergies: PENICILLINS (Verified Allergy, Unknown, 08/31/17) TRAMADOL (Verified Allergy, Unknown, 08/31/17) Subjective AFVSS, stable on RA, CT reviewed and stable Less SOB, less PND/orthopnea, no cough, no wheezing, no F/C Objective Last 24 Hour Vital Signs Date Time Temp Pulse Resp B/P (MAP) Pulse Ox O2 Delivery O2 Flow Rate FiO2 05/14/18 12:00 97.9 65 136/73 (94) 99 97.9 05/14/18 09:00 71 05/14/18 09:00 Room Air 05/14/18 08:00 97.7 72 128/86 (100) 97 97.7 05/14/18 07:40 91 18 100 Room Air 21 05/14/18 07:30 86 16 98 Room Air 21 05/14/18 07:30 86 16 Room Air 21 05/14/18 04:00 79 05/14/18 04:00 97.9 72 137/64 (88) 99 97.9 05/14/18 01:23 82 18 100 Room Air 21 05/14/18 01:11 84 20 97 Room Air 21 05/14/18 00:00 74 05/14/18 00:00 98.0 79 138/73 (94) 96 98.0 05/13/18 22:17 Room Air 05/13/18 20:00 97.0 85 133/60 (84) 97.0 05/13/18 20:00 84 05/13/18 19:17 94 20 98 Room Air 21 05/13/18 19:17 94 20 Room Air 21 05/13/18 18:57 98.5 81 22 110/46 100 Room Air 21 98.5 05/13/18 18:00 81 22 110/46 100 Room Air 21 05/13/18 16:23 98.5 95 20 120/53 100 Room Air 21 98.5 05/13/18 15:24 66 19 100 Room Air 21 05/13/18 15:00 67 19 100 Room Air 21 05/13/18 14:57 69 19 100 Room Air 21 05/13/18 14:49 79 22 100 Room Air 21 05/13/18 14:49 98.5 05/13/18 14:46 89 24 Room Air 21 05/13/18 14:46 98.5 75 24 117/67 95 Room Air 21 98.5 05/13/18 14:38 79 24 100 Room Air 21 05/13/18 14:36 89 24 Room Air 21 05/13/18 14:31 89 24 95 Room Air 21 05/13/18 14:19 97.6 05/13/18 13:36 97.6 89 24 117/67 95 Room Air 97.5 Intake and Output 05/13/18 05/14/18 19:00 07:00 Output Total 2700 ml Balance -2700 ml Output Urine Total 2700 ml # Voids 1 6 # Bowel Movements 1 General Appearance: no acute distress, other - obese HEENT: normocephalic, atraumatic, anicteric, mucous membranes moist Respiratory/Chest: chest wall non-tender, lungs clear - but distant with BiB rales, no respiratory distress, no accessory muscle use Cardiovascular: normal peripheral pulses, normal rate, regular rhythm Abdomen: normal bowel sounds, soft, non tender, no organomegaly, non distended Extremities: no cyanosis, no clubbing, other - 2+ NELLIE Laboratory Tests 05/13/18 14:10: White Blood Count 7.4, Red Blood Count 4.36L, Hemoglobin 10.6L, Hematocrit 35.2L , Mean Corpuscular Volume 81, Mean Corpuscular Hemoglobin 24.3L, Mean Corpuscular Hemoglobin Concent 30.1L, Red Cell Distribution Width 14.9H, Platelet Count 201, Mean Platelet Volume 8.8, Neutrophils (%) (Auto) 46.7, Lymphocytes (%) (Auto) 33.8, Monocytes (%) (Auto) 9.7, Eosinophils (%) (Auto) 7.8H, Basophils (%) (Auto) 2.1H, Sodium Level 143, Potassium Level 4.0, Chloride Level 107, Carbon Dioxide Level 30, Anion Gap 6, Blood Urea Nitrogen 27H, Creatinine 1.1, Estimat Glomerular Filtration Rate > 60, Glucose Level 106 , Calcium Level 9.7, Total Bilirubin 0.2, Aspartate Amino Transf (AST/SGOT) 16, Alanine Aminotransferase (ALT/SGPT) 26, Alkaline Phosphatase 111, Total Creatine Kinase 148, Creatine Kinase MB 0.9, Creatine Kinase MB Relative Index 0.6, Troponin I 0.000, Pro-B-Type Natriuretic Peptide 95, Total Protein 8.0, Albumin 3.1L, Globulin 4.9, Albumin/Globulin Ratio 0.6L, Lipase 158 05/13/18 18:15: Arterial Blood pH 7.406, Arterial Blood Partial Pressure CO2 39.5, Arterial Blood Partial Pressure O2 75.3, Arterial Blood HCO3 24.3, Arterial Blood Oxygen Saturation 95.1, Arterial Blood Base Excess -0.3, Travis Test Positive 05/13/18 19:30: Troponin I 0.006, D-Dimer 1.38H, Lactate Dehydrogenase 253H, Angiotensin Converting Enzyme [Pending] 05/14/18 06:05: White Blood Count 8.8, Red Blood Count 4.31L, Hemoglobin 10.6L, Hematocrit 33.7L , Mean Corpuscular Volume 78L, Mean Corpuscular Hemoglobin 24.6L, Mean Corpuscular Hemoglobin Concent 31.5L, Red Cell Distribution Width 14.3, Platelet Count 207, Mean Platelet Volume 8.1, Neutrophils (%) (Auto) 63.4, Lymphocytes (%) (Auto) 25.9, Monocytes (%) (Auto) 10.1H, Eosinophils (%) (Auto) 0.1, Basophils (%) (Auto) 0.5, Sodium Level 142, Potassium Level 4.0, Chloride Level 105, Carbon Dioxide Level 28, Anion Gap 9, Blood Urea Nitrogen 31H, Creatinine 1.2, Estimat Glomerular Filtration Rate > 60, Glucose Level 116H, Calcium Level 9.6, Total Bilirubin 0.2, Aspartate Amino Transf (AST/SGOT) 22, Alanine Aminotransferase (ALT/SGPT) 28, Alkaline Phosphatase 112, Total Creatine Kinase 144, Total Protein 7.9, Albumin 2.9L, Hemoglobin A1c 6.7H, Uric Acid 7.2, Phosphorus Level 4.3, Magnesium Level 1.9, Iron Level 39L, Total Iron Binding Capacity 282, Percent Iron Saturation 14L, Unsaturated Iron Binding 243 , Ferritin 93, Direct Bilirubin < 0.1, Gamma Glutamyl Transpeptidase 24, Triglycerides Level 16L, Cholesterol Level 153, LDL Cholesterol 84, HDL Cholesterol 58, Cholesterol/HDL Ratio 2.6L, Vitamin B12 Level 1787H, Folate 10.7 , Thyroid Stimulating Hormone (TSH) 0.209L 05/14/18 10:00: Urine Color Pale yellow, Urine Appearance Clear, Urine pH 6, Urine Specific [place] 1.005, Urine Protein Negative, Urine Glucose (UA) Negative, Urine Ketones Negative, Urine Blood Negative, Urine Nitrite Negative, Urine Bilirubin Negative, Urine Urobilinogen Normal, Urine Leukocyte Esterase Negative, Urine RBC 0-2H, Urine WBC 0-2, Urine Squamous Epithelial Cells Few, Urine Bacteria Occasional Current Medications Medications (Trade) Dose Ordered Sig/Virgen Route PRN Reason Start Time Stop Time Status Last Admin Dose Admin Acetaminophen/ Hydrocodone Bitart ([place] 10/325) 1 tab Q4H PRN ORAL severe pain 05/14/18 11:03 05/21/18 11:02 Acetaminophen/ Hydrocodone Bitart ([place] 5/325) 1 tab Q4H PRN ORAL MODERATE PAIN 05/14/18 11:04 05/20/18 11:03 Albuterol/ Ipratropium (Albuterol/ Ipratropium) 3 ml Q6HRT HHN 05/13/18 19:00 05/18/18 18:59 05/14/18 07:38 Aspirin (ASA) 81 mg DAILY ORAL 05/14/18 09:00 06/13/18 08:59 05/14/18 08:10 Atorvastatin Calcium (Lipitor) 20 mg BEDTIME ORAL 05/13/18 22:00 06/12/18 21:59 05/13/18 23:17 Azithromycin (Zithromax) 250 mg DAILY ORAL 05/14/18 09:00 05/21/18 08:59 05/14/18 08:11 Furosemide (Lasix) 40 mg BID IV 05/13/18 19:30 06/12/18 19:29 05/14/18 08:11 Heparin Sodium (Porcine) (Heparin 5000 units/ml) 5,000 units Q12HR SUBQ 05/14/18 09:00 06/13/18 08:59 Montelukast Sodium (Singulair) 10 mg QPM ORAL 05/14/18 16:30 06/13/18 16:29 Prednisone (predniSONE) 60 mg DAILY ORAL 05/14/18 09:00 06/13/18 08:59 05/14/18 08:11 Salmeterol Xinafoate/ Fluticasone (Advair 250/50 Diskus) 1 puffs BID INH 05/14/18 09:00 06/13/18 08:59 05/14/18 09:44 Rashad Haji MD May 14, 2018 12:57
--- NOTE | 2018-05-14 14:40 | Consultation ---
Consult Note Consult Note anson is 62-year-old male brought in by EMS after increased difficulty breathing for the past 2 days. Patient prior history of asthma as well as congestive heart failure. He reports being compliant with his Lasix. He reports having increased discomfort to both legs as well as increased swelling. He reports having increased orthopnea. Patient been taking Advair inhalers as well as oral Lasix 20 mg twice a day. He reported having a slightly decreased urine output. Allergies: PENICILLINS (Verified Allergy, Unknown, 08/31/17) TRAMADOL (Verified Allergy, Unknown, 08/31/17) Hx Hypertension: Yes Hx Asthma: Yes examined- data reviewed Assessment/Plan Anemia COPD exac CHF IV iron pulm support lasix 2D echo Jerzy Hardwick MD May 14, 2018 14:39
[2018-05-14] MEDS: HYDROcodone/Acetamin 10/325 tab ORAL PRN ×2 (15:10→20:13)
[2018-05-14 16:00] VITALS: BP 133/83
[2018-05-14] MEDS: Montelukast 10mg tablet ORAL SCH (16:25)
[2018-05-14] MEDS: Docusate 100mg cap ORAL SCH (17:09)
[2018-05-14 20:00] VITALS: BP 131/65
[2018-05-14] MEDS: Atorvastatin 20mg tab ORAL SCH (20:06)
[2018-05-14] MEDS ORDERED: Iron Sucrose 200 MG in NS 110 ML IV SCH (21:00)
--- NOTE | 2018-05-14 23:15 | Consultation ---
DATE OF CONSULTATION: 05/14/2018 INFECTIOUS DISEASE CONSULTATION PRIMARY ATTENDING PHYSICIAN: Brittney Shepard M.D. REASON FOR CONSULT: COPD exacerbation. HISTORY OF PRESENT ILLNESS: This is a 62-year-old male admitted yesterday complaining of shortness of breath, leg edema, and orthopnea. The patient has COPD and is frequently in the hospital. The latest admission to [facility] was between 04/22/2018 and 04/30/2018. The patient has no fever. PAST MEDICAL HISTORY: COPD, diastolic congestive heart failure, chronic leg edema, obesity, and degenerative joint disease. ALLERGIES: Allergic to penicillin and tramadol. MEDICATIONS: Getting Singular, [place], prednisone, azithromycin, heparin, Advair Diskus, aspirin, atorvastatin, Lasix, and albuterol ipratropium inhaler. SOCIAL HISTORY: from . Former smoker. Lived in [place] before. REVIEW OF SYSTEMS: No fever. No chills. He has a stuffy nose, productive cough, nausea without vomiting, and leg edema. No problem passing urine. PHYSICAL EXAMINATION: VITAL SIGNS: Temperature 97.9, pulse 65, and blood pressure 136/73. GENERAL APPEARANCE: No acute distress. Well developed. HEAD AND NECK: mucosal congestion in nose. Slightly whitish tongue. HEART: S1 and S2, regular. LUNGS: Clear. ABDOMEN: Soft and obese. EXTREMITIES: He has edema of the legs. NEUROLOGIC: Awake, alert, and oriented x3. No focal signs. LABORATORY AND DIAGNOSTIC DATA: WBC 8.8, hemoglobin 10.6, hematocrit 32.7, and platelets 207,000. Hemoglobin A1c is 6.7. Sodium 142, potassium 4, chloride 105, bicarbonate 28, BUN 31, and creatinine 1.2. The patient had an ABG, which showed pH of 7.4, pCO2 of 39.5, and pO2 of 75.3. The patient had a CT scan of the abdomen, pelvis, and chest that showed no acute process, multiple lung nodules that was present in the past CT scan, and some atelectasis. The patient had an echocardiogram in the previous admission that showed ejection fraction of 65%. IMPRESSION: 1. Chronic obstructive pulmonary disease exacerbation. 2. Diastolic congestive heart failure. 3. Hypoxic respiratory failure. 4. Anemia. 5. Hypertension. RECOMMENDATION: We will continue with Zithromax. We will follow up the labs and clinical course. At the end of my exam, I thank Dr. Shepard for involving me in the care of this patient. John Villalobos M.D. DR: ROMERO JOB#: [id number] CC: TOM
[2018-05-15] VITALS: BP 137/68
[2018-05-15] MEDS: Albuterol/Ipratropium 3ml neb HHN SCH ×4 (00:04→19:52)
[2018-05-15] MEDS: HYDROcodone/Acetamin 10/325 tab ORAL PRN ×4 (00:26→20:52)
[2018-05-15 04:00] VITALS: BP 146/75
[2018-05-15 06:34] LABS: BASOPHILS % (AUTO) 0.9 % (0.0-2.0); EOSINOPHILS % (AUTO) 1.7 % (0.0-3.0); HEMATOCRIT 31.7 % (42.0-52.0); HEMOGLOBIN 9.9 G/DL (14.2-18.0); LYMPHOCYTES % (AUTO) 38.3 % (20.0-45.0); MEAN CORPUSCULAR VOLUME 80 FL (80-99); MONOCYTES % (AUTO) 11.9 % (1.0-10.0); NEUTROPHILS % (AUTO) 47.2 % (45.0-75.0); PLATELET COUNT 197 K/UL (150-450); RED BLOOD COUNT 3.99 M/UL (4.70-6.10); RED CELL DISTRIBUTION WIDTH 15.1 % (11.6-14.8); WHITE BLOOD COUNT 9.2 K/UL (4.8-10.8)
[2018-05-15 06:37] LABS: ANION GAP 4 mmol/L (5-15); BLOOD UREA NITROGEN 28 mg/dL (7-18); CARBON DIOXIDE 31 MMOL/L (21-32); CHLORIDE 105 MMOL/L (98-107); CREATININE 1.1 MG/DL (0.55-1.30); POTASSIUM 4.3 MMOL/L (3.5-5.1); SODIUM 139 MMOL/L (136-145)
--- NOTE | 2018-05-15 06:43 | Consultation ---
Consult Note Consult Note Hematology Consult REQ MD: Brittney Shepard RFC: Anemia eval DOS: 05/15/2018 ID Patient is 62-year-old male brought in by EMS after increased difficulty breathing for the past 2 days. Patient prior history of asthma as well as congestive heart failure. He reports being compliant with his Lasix. He reports having increased discomfort to both legs as well as increased swelling. He reports having increased orthopnea. Patient been taking Advair inhalers as well as oral Lasix 20 mg twice a day. He reported having a slightly decreased urine output. Noted to have anemia and heme was consulted. Coded Allergies: PENICILLINS (Verified Allergy, Unknown, 08/31/17) TRAMADOL (Verified Allergy, Unknown, 08/31/17) Patient History Past Medical History: see triage record Reviewed Nursing Documentation: PMH: Agreed; PSxH: Agreed Nursing Documentation-PMH Hx Hypertension: Yes Hx Asthma: Yes Hx Cancer: No Hx Gastrointestinal Problems: No Hx Neurological Problems: No Reviewe of Systems: negative except mentioned in HPI 12 point ROS is negative ER Physical Exam - General Physical Exam Vital Signs Last 24 Hour Vital Signs Date Time Temp Pulse Resp B/P (MAP) Pulse Ox O2 Delivery O2 Flow Rate FiO2 05/15/18 04:00 63 05/15/18 04:00 97.8 69 21 146/75 (98) 95 97.8 05/15/18 00:23 72 16 97 Room Air 21 05/15/18 00:07 76 16 95 Room Air 21 05/15/18 00:00 97.5 68 20 137/68 (91) 96 97.5 05/15/18 00:00 66 05/14/18 21:00 Room Air 05/14/18 20:00 97.3 67 20 131/65 (87) 96 97.3 05/14/18 20:00 67 05/14/18 20:00 72 18 98 Room Air 21 05/14/18 19:45 70 18 96 Room Air 21 05/14/18 16:00 97.4 80 133/83 (100) 97 97.4 05/14/18 16:00 78 05/14/18 13:17 93 18 100 Room Air 21 05/14/18 13:07 80 16 98 Room Air 21 05/14/18 12:00 68 05/14/18 12:00 97.9 65 136/73 (94) 99 97.9 05/14/18 09:00 71 05/14/18 09:00 Room Air 05/14/18 08:00 97.7 72 128/86 (100) 97 97.7 05/14/18 07:40 91 18 100 Room Air 21 05/14/18 07:30 86 16 98 Room Air 21 05/14/18 07:30 86 16 Room Air 21 General Appearance: normal inspection, Chronically Ill Head: atraumatic ENT: normal ENT inspection Neck: normal inspection, full range of motion Respiratory: normal inspection, no retraction, wheezing Cardiovascular #1: regular rate, rhythm, edema Gastrointestinal: normal inspection, normal bowel sounds Genitourinary: no CVA tenderness Musculoskeletal: normal inspection, back normal Neurologic: normal inspection, alert, oriented x3, responsive Psychiatric: normal inspection, judgement/insight normal Skin: no rash, other - venous stasis changes to both legs Labs Test 05/13/18 14:10 White Blood Count 7.4 K/UL (4.8-10.8) Red Blood Count 4.36 M/UL (4.70-6.10) Hemoglobin 10.6 G/DL (14.2-18.0) Hematocrit 35.2 % (42.0-52.0) Mean Corpuscular Volume 81 FL (80-99) Mean Corpuscular Hemoglobin 24.3 PG (27.0-31.0) Mean Corpuscular Hemoglobin Concent 30.1 G/DL (32.0-36.0) Red Cell Distribution Width 14.9 % (11.6-14.8) Platelet Count 201 K/UL (150-450) Mean Platelet Volume 8.8 FL (6.5-10.1) Neutrophils (%) (Auto) 46.7 % (45.0-75.0) Lymphocytes (%) (Auto) 33.8 % (20.0-45.0) Monocytes (%) (Auto) 9.7 % (1.0-10.0) Eosinophils (%) (Auto) 7.8 % (0.0-3.0) Basophils (%) (Auto) 2.1 % (0.0-2.0) Sodium Level 143 MMOL/L (136-145) Potassium Level 4.0 MMOL/L (3.5-5.1) Chloride Level 107 MMOL/L (98-107) Carbon Dioxide Level 30 MMOL/L (21-32) Anion Gap 6 mmol/L (5-15) Blood Urea Nitrogen 27 mg/dL (7-18) Creatinine 1.1 MG/DL (0.55-1.30) Estimat Glomerular Filtration Rate > 60 mL/min (>60) Glucose Level 106 MG/DL (74-106) Calcium Level 9.7 MG/DL (8.5-10.1) Total Bilirubin 0.2 MG/DL (0.2-1.0) Aspartate Amino Transf (AST/SGOT) 16 U/L (15-37) Alanine Aminotransferase (ALT/SGPT) 26 U/L (12-78) Alkaline Phosphatase 111 U/L (46-116) Total Creatine Kinase 148 U/L (26-308) Creatine Kinase MB 0.9 NG/ML (0.0-3.6) Creatine Kinase MB Relative Index 0.6 Troponin I 0.000 ng/mL (0.000-0.056) Pro-B-Type Natriuretic Peptide 95 pg/mL (0-125) Total Protein 8.0 G/DL (6.4-8.2) Albumin 3.1 G/DL (3.4-5.0) Globulin 4.9 g/dL Albumin/Globulin Ratio 0.6 (1.0-2.7) Lipase 158 U/L (73-393) Assessment and Recs: # Anemia of iron deficiency -- anemia panel has been reviewed, hgb goal >7 --> transfuse as needed --> iv iron has been started x 5 days --> no evidence of hemolysis # Borderline mediastinal lymphadenopathy, stable or perhaps minimally improved since previous study. Nonspecific as regards etiology. Multiple small right lung nodules, also previously reported, appearing unchanged. --> CT scan q6-12months, will order prn # Elevated D-Dimer --> have ordered for inr/pt/ptt --> no evidence for bleeding # CHF (congestive heart failure) exacerbation --> Iv lasix prn # Chronic venostasis to his lower extremities. COPD exacerbation with shortness of breath. --> IV steroids. The patient was noted to have chronic venostasis to his lower extremities. --> Patient was given IV Lasix with some improvement in symptoms Kade Fermin MD May 15, 2018 06:43
[2018-05-15] MEDS: Docusate 100mg cap ORAL SCH ×2 (08:15→17:14)
[2018-05-15] MEDS: Aspirin Baby 81mg ORAL SCH (08:15)
[2018-05-15] MEDS: Azithromycin 250mg tab ORAL SCH (08:16)
[2018-05-15] MEDS: Heparin 5000 units/ml inj SUBQ SCH ×2 (08:25→20:53)
[2018-05-15 09:00] VITALS: BP 139/78
[2018-05-15] MEDS: Advair 250/50 Inhaler - 14 dose INH SCH ×2 (09:27→19:52)
--- NOTE | 2018-05-15 09:30 | History and Physical Report ---
DATE OF ADMISSION: 05/13/2018 HISTORY OF PRESENT ILLNESS: The patient comes in with increased difficulty in breathing and has a history of COPD, on multiple medications. He takes Lasix twice a day. He was given 00:14 breathing treatments, however, was still short of breath. Also, admitted for COPD exacerbation. The patient also complains of pain in lower extremities and worsening leg edema. 00:29 weakness and shortness of breath. The patient does have orthopnea as well. PAST MEDICAL HISTORY: Significant for COPD, hyperlipidemia, hypertension, and heart failure. MEDICATIONS: Aspirin, Lipitor, benazepril, Lasix, singular 01:01 inhaler. PAST SURGICAL HISTORY: The patient had right ankle surgery and appendectomy. ALLERGIES: Penicillin and Toradol. FAMILY HISTORY: Noncontributory. SOCIAL HISTORY: He has history of smoking and history of drug abuse. REVIEW OF SYSTEMS: HEENT: Denies headaches. PULMONARY: 01:22 shortness of breath. Reports wheezing and productive cough 01:25. CARDIOVASCULAR: Denies chest pain. She does have orthopnea. GASTROINTESTINAL: Denies nausea, vomiting, or diarrhea. EXTREMITIES: Reports leg pain and worsening leg edema. CENTRAL NERVOUS SYSTEM: Denies changes in vision or speech pattern. PHYSICAL EXAMINATION: VITAL SIGNS: Basically temperature 97.9, pulse is 55, and blood pressure 136/73. HEENT: PERRLA. NECK: Supple. No lymphadenopathy. CHEST: Clear to auscultation. CARDIOVASCULAR: Regular rate and rhythm. ABDOMEN: Distended. Positive bowel sounds. EXTREMITIES: 3+ edema throughout the lower extremities. He has generalized weakness. Reflexes on both sides 02:02. LABORATORY DATA: WBC of 7.4, hemoglobin 10.6, and platelets of 201. Sodium 142, potassium 4, chloride 105, BUN of 31, creatinine of 1.12, and glucose of 116. ASSESSMENT AND PLAN: Respiratory insufficiency, COPD exacerbation, and history of CHF. I have admitted the patient to monitor 02:37. I have asked Dr. Hurley, Dr. Hardwick, 02:40, and Dr. Haji to see the patient to rule out any infectious etiology as well as treatment of COPD exacerbation as well as to monitor leg edema and CHF and for pain control. Brittney Shepard M.D. DR: NIRAV JOB#: [id number] CC:
[2018-05-15 12:00] VITALS: BP 137/75
--- NOTE | 2018-05-15 13:00 | Infectious Diseases Prog Note ---
Assessment/Plan Assessment/Plan IMPRESSION: 1. Chronic obstructive pulmonary disease exacerbation. 2. Diastolic congestive heart failure. 3. Hypoxic respiratory failure. 4. Anemia. 5. Hypertension. P; Continue Zithromax Subjective ROS Limited/Unobtainable: No Constitutional: Reports: no symptoms Respiratory: Reports: productive cough Gastrointestinal/Abdominal: Reports: no symptoms Genitourinary: Reports: no symptoms Allergies: Coded Allergies: PENICILLINS (Verified Allergy, Unknown, 08/31/17) TRAMADOL (Verified Allergy, Unknown, 08/31/17) Objective Vital Signs Last 24 Hour Vital Signs Date Time Temp Pulse Resp B/P (MAP) Pulse Ox O2 Delivery O2 Flow Rate FiO2 05/15/18 12:00 61 05/15/18 12:00 97.9 56 18 137/75 (95) 100 97.9 05/15/18 09:00 Room Air 05/15/18 09:00 97.7 66 22 139/78 (98) 96 97.7 05/15/18 08:00 66 05/15/18 07:06 78 16 100 Room Air 21 05/15/18 07:00 74 16 98 Room Air 21 05/15/18 04:00 63 05/15/18 04:00 97.8 69 21 146/75 (98) 95 97.8 05/15/18 00:23 72 16 97 Room Air 21 05/15/18 00:07 76 16 95 Room Air 21 05/15/18 00:00 97.5 68 20 137/68 (91) 96 97.5 05/15/18 00:00 66 05/14/18 21:00 Room Air 05/14/18 20:00 97.3 67 20 131/65 (87) 96 97.3 05/14/18 20:00 67 05/14/18 20:00 72 18 98 Room Air 21 05/14/18 19:45 70 18 96 Room Air 21 05/14/18 16:00 97.4 80 133/83 (100) 97 97.4 05/14/18 16:00 78 05/14/18 13:17 93 18 100 Room Air 21 05/14/18 13:07 80 16 98 Room Air 21 Height (Feet): 6 Height (Inches): 3.00 Weight (Pounds): 327 General Appearance: no acute distress HEENT: mucous membranes moist Respiratory/Chest: decreased breath sounds Cardiovascular: normal rate Abdomen: soft, non tender Extremities: other - edema of legs Neurologic/Psychiatric: alert, oriented x 3, responsive Laboratory Tests Test 05/15/18 05:45 05/15/18 07:35 White Blood Count 9.2 K/UL (4.8-10.8) Red Blood Count 3.99 M/UL (4.70-6.10) L Hemoglobin 9.9 G/DL (14.2-18.0) L Hematocrit 31.7 % (42.0-52.0) L Mean Corpuscular Volume 80 FL (80-99) Mean Corpuscular Hemoglobin 25.0 PG (27.0-31.0) L Mean Corpuscular Hemoglobin Concent 31.4 G/DL (32.0-36.0) L Red Cell Distribution Width 15.1 % (11.6-14.8) H Platelet Count 197 K/UL (150-450) Mean Platelet Volume 8.9 FL (6.5-10.1) Neutrophils (%) (Auto) 47.2 % (45.0-75.0) Lymphocytes (%) (Auto) 38.3 % (20.0-45.0) Monocytes (%) (Auto) 11.9 % (1.0-10.0) H Eosinophils (%) (Auto) 1.7 % (0.0-3.0) Basophils (%) (Auto) 0.9 % (0.0-2.0) Sodium Level 139 MMOL/L (136-145) Potassium Level 4.3 MMOL/L (3.5-5.1) Chloride Level 105 MMOL/L (98-107) Carbon Dioxide Level 31 MMOL/L (21-32) Anion Gap 4 mmol/L (5-15) L Blood Urea Nitrogen 28 mg/dL (7-18) H Creatinine 1.1 MG/DL (0.55-1.30) Estimat Glomerular Filtration Rate > 60 mL/min (>60) Glucose Level 94 MG/DL (74-106) Calcium Level 9.0 MG/DL (8.5-10.1) Prothrombin Time 10.7 SEC (9.30-11.50) Prothromb Time International Ratio 1.0 (0.9-1.1) Current Medications Medications (Trade) Dose Ordered Sig/Virgen Route PRN Reason Start Time Stop Time Status Last Admin Dose Admin Acetaminophen/ Hydrocodone Bitart ([place] 10/325) 1 tab Q4H PRN ORAL severe pain 05/14/18 11:03 05/21/18 11:02 05/15/18 12:00 Acetaminophen/ Hydrocodone Bitart ([place] 5/325) 1 tab Q4H PRN ORAL MODERATE PAIN 05/14/18 11:04 05/20/18 11:03 Albuterol/ Ipratropium (Albuterol/ Ipratropium) 3 ml Q6HRT HHN 05/13/18 19:00 05/18/18 18:59 05/15/18 07:00 Aspirin (ASA) 81 mg DAILY ORAL 05/14/18 09:00 06/13/18 08:59 05/15/18 08:15 Atorvastatin Calcium (Lipitor) 20 mg BEDTIME ORAL 05/13/18 22:00 06/12/18 21:59 05/14/18 20:06 Azithromycin (Zithromax) 250 mg DAILY ORAL 05/14/18 09:00 05/21/18 08:59 05/15/18 08:16 Docusate Sodium (Colace) 100 mg TWICE A DAY ORAL 05/14/18 18:00 06/13/18 17:59 05/15/18 08:15 Furosemide (Lasix) 40 mg BID IV 05/13/18 19:30 06/12/18 19:29 05/15/18 08:16 Heparin Sodium (Porcine) (Heparin 5000 units/ml) 5,000 units Q12HR SUBQ 05/14/18 09:00 06/13/18 08:59 Montelukast Sodium (Singulair) 10 mg QPM ORAL 05/14/18 16:30 06/13/18 16:29 05/14/18 16:25 Pantoprazole (Protonix) 40 mg DAILY ORAL 05/14/18 15:00 06/13/18 14:59 05/15/18 08:15 Prednisone (predniSONE) 60 mg DAILY ORAL 05/14/18 09:00 06/13/18 08:59 05/15/18 08:16 Salmeterol Xinafoate/ Fluticasone (Advair 250/50 Diskus) 1 puffs BID INH 05/14/18 09:00 06/13/18 08:59 05/15/18 09:27 John Villalobos MD May 15, 2018 13:00
--- NOTE | 2018-05-15 13:27 | Nephrology Progress Note ---
Assessment/Plan Problem List: (1) Nausea & vomiting (2) CHF (congestive heart failure) (3) COPD exacerbation (4) Anemia, iron deficiency Assessment Anemia COPD exac CHF Plan IV iron pulm support lasix 2D echo ej Fx 60% done 10 days ago monitor tali Subjective ROS Limited/Unobtainable: No Objective Objective Last 24 Hour Vital Signs Date Time Temp Pulse Resp B/P (MAP) Pulse Ox O2 Delivery O2 Flow Rate FiO2 05/15/18 13:19 75 16 100 Room Air 21 05/15/18 13:12 75 16 98 Room Air 21 05/15/18 12:00 61 05/15/18 12:00 97.9 56 18 137/75 (95) 100 97.9 05/15/18 09:00 Room Air 05/15/18 09:00 97.7 66 22 139/78 (98) 96 97.7 05/15/18 08:00 66 05/15/18 07:06 78 16 100 Room Air 21 05/15/18 07:00 74 16 98 Room Air 21 05/15/18 04:00 63 05/15/18 04:00 97.8 69 21 146/75 (98) 95 97.8 05/15/18 00:23 72 16 97 Room Air 21 05/15/18 00:07 76 16 95 Room Air 21 05/15/18 00:00 97.5 68 20 137/68 (91) 96 97.5 05/15/18 00:00 66 05/14/18 21:00 Room Air 05/14/18 20:00 97.3 67 20 131/65 (87) 96 97.3 05/14/18 20:00 67 05/14/18 20:00 72 18 98 Room Air 21 05/14/18 19:45 70 18 96 Room Air 21 05/14/18 16:00 97.4 80 133/83 (100) 97 97.4 05/14/18 16:00 78 Intake and Output 05/14/18 05/15/18 19:00 07:00 Intake Total 720 ml 120 ml Output Total 1200 ml 1500 ml Balance -480 ml -1380 ml Intake Oral 720 ml IV Total 120 ml Output Urine Total 1200 ml 1500 ml Laboratory Tests 05/15/18 05:45: White Blood Count 9.2, Red Blood Count 3.99L, Hemoglobin 9.9L, Hematocrit 31.7L , Mean Corpuscular Volume 80, Mean Corpuscular Hemoglobin 25.0L, Mean Corpuscular Hemoglobin Concent 31.4L, Red Cell Distribution Width 15.1H, Platelet Count 197, Mean Platelet Volume 8.9, Neutrophils (%) (Auto) 47.2, Lymphocytes (%) (Auto) 38.3, Monocytes (%) (Auto) 11.9H, Eosinophils (%) (Auto) 1.7, Basophils (%) (Auto) 0.9, Sodium Level 139, Potassium Level 4.3, Chloride Level 105, Carbon Dioxide Level 31, Anion Gap 4L, Blood Urea Nitrogen 28H, Creatinine 1.1, Estimat Glomerular Filtration Rate > 60, Glucose Level 94, Calcium Level 9.0 05/15/18 07:35: Prothrombin Time 10.7, Prothromb Time International Ratio 1.0 Height (Feet): 6 Height (Inches): 3.00 Weight (Pounds): 327 Jerzy Hardwick MD May 15, 2018 13:27
--- NOTE | 2018-05-15 15:21 | Pulmonology Progress Note ---
Assessment/Plan Assessment/Plan Pulmonary Progress Note Problems: (1) CHF (congestive heart failure) (2) COPD exacerbation Assessment/Plan ASSESSMENT: The patient is a 62-year-old male, former smoker with a history of CHF with diastolic dysfunction, stated history of COPD, obesity, likely THERON, obesity hypoventilation, hypertension, and hyperlipidemia, presenting with shortness of breath in the setting of PND, orthopnea, and bilateral lower extremity edema, likely secondary to decompensated heart failure plus or minus an exacerbation of his underlying obstructive lung disease. Of note, he previously had a CT of the chest, which showed some faint diffuse bilateral ground-glass opacities and diffuse mediastinal and hilar adenopathy for which a differential would include reactive inflammatory edema, sarcoidosis, or neoplastic processes. PROBLEM LIST: 1. Shortness of breath and dyspnea likely secondary to decompensated heart failure and underlying obstructive lung disease. 2. Stated history of COPD with possible acute exacerbation. 3. Known faint bilateral ground-glass opacities with mediastinal and hilar lymphadenopathy - NODULES STABLE, LAD IMPROVED and GGO's RESOLVED 4. CHF with mild diastolic dysfunction and acute decompensated heart failure. 5. Hypertension, hyperlipidemia. 6. Normocytic anemia. TREATMENT PLAN: 1. Optimize pulmonary hygiene/mobilize as tolerated. 2. PRN O2 to keep saturations greater than 90%. 3. [id number] and p.r.n. bronchodilators. 4. The patient received Solu-Medrol 125 in the ER. We will continue prednisone 60 mg p.o. daily (D2/5) 5. PO azithromycin for anti-inflammatory effect (D2/5). 6. Monitor volumes and renal function, continue IV lasix as able 7. F/U DUPLEX 8. F/U BETHANY and LDH 9. Cardiology evaluation. 10. Consider Hem/Onc evaluation given the discrepancy between the serum albumin and the total protein. I would consider a workup for plasma cell disorder. 12. DVT prophylaxis, heparin subcutaneous. 13. Aspiration precautions. Subjective Allergies: Coded Allergies: PENICILLINS (Verified Allergy, Unknown, 08/31/17) TRAMADOL (Verified Allergy, Unknown, 08/31/17) Subjective AFVSS, stable on RA, CT reviewed and stable Less SOB, less PND/orthopnea, no cough, no wheezing, no F/C Objective Last 24 Hour Vital Signs Date Time Temp Pulse Resp B/P (MAP) Pulse Ox O2 Delivery O2 Flow Rate FiO2 9/26/18 12:00 97.9 65 136/73 (94) 99 97.9 05/14/18 09:00 71 05/14/18 09:00 Room Air 05/14/18 08:00 97.7 72 128/86 (100) 97 97.7 05/14/18 07:40 91 18 100 Room Air 21 05/14/18 07:30 86 16 98 Room Air 21 05/14/18 07:30 86 16 Room Air 21 05/14/18 04:00 79 05/14/18 04:00 97.9 72 137/64 (88) 99 97.9 05/14/18 01:23 82 18 100 Room Air 21 05/14/18 01:11 84 20 97 Room Air 21 05/14/18 00:00 74 05/14/18 00:00 98.0 79 138/73 (94) 96 98.0 05/13/18 22:17 Room Air 05/13/18 20:00 97.0 85 133/60 (84) 97.0 05/13/18 20:00 84 05/13/18 19:17 94 20 98 Room Air 21 05/13/18 19:17 94 20 Room Air 21 05/13/18 18:57 98.5 81 22 110/46 100 Room Air 21 98.5 05/13/18 18:00 81 22 110/46 100 Room Air 21 05/13/18 16:23 98.5 95 20 120/53 100 Room Air 21 98.5 05/13/18 15:24 66 19 100 Room Air 21 05/13/18 15:00 67 19 100 Room Air 21 05/13/18 14:57 69 19 100 Room Air 21 05/13/18 14:49 79 22 100 Room Air 21 05/13/18 14:49 98.5 05/13/18 14:46 89 24 Room Air 21 05/13/18 14:46 98.5 75 24 117/67 95 Room Air 21 98.5 05/13/18 14:38 79 24 100 Room Air 21 05/13/18 14:36 89 24 Room Air 21 05/13/18 14:31 89 24 95 Room Air 21 05/13/18 14:19 97.6 05/13/18 13:36 97.6 89 24 117/67 95 Room Air 97.5 Intake and Output 05/13/18 05/14/18 19:00 07:00 Output Total 2700 ml Balance -2700 ml Output Urine Total 2700 ml # Voids 1 6 # Bowel Movements 1 General Appearance: no acute distress, other - obese HEENT: normocephalic, atraumatic, anicteric, mucous membranes moist Respiratory/Chest: chest wall non-tender, lungs clear - but distant with BiB rales, no respiratory distress, no accessory muscle use Cardiovascular: normal peripheral pulses, normal rate, regular rhythm Abdomen: normal bowel sounds, soft, non tender, no organomegaly, non distended Extremities: no cyanosis, no clubbing, other - 2+ NELLIE Laboratory Tests 05/13/18 14:10: White Blood Count 7.4, Red Blood Count 4.36L, Hemoglobin 10.6L, Hematocrit 35.2L , Mean Corpuscular Volume 81, Mean Corpuscular Hemoglobin 24.3L, Mean Corpuscular Hemoglobin Concent 30.1L, Red Cell Distribution Width 14.9H, Platelet Count 201, Mean Platelet Volume 8.8, Neutrophils (%) (Auto) 46.7, Lymphocytes (%) (Auto) 33.8, Monocytes (%) (Auto) 9.7, Eosinophils (%) (Auto) 7.8H, Basophils (%) (Auto) 2.1H, Sodium Level 143, Potassium Level 4.0, Chloride Level 107, Carbon Dioxide Level 30, Anion Gap 6, Blood Urea Nitrogen 27H, Creatinine 1.1, Estimat Glomerular Filtration Rate > 60, Glucose Level 106 , Calcium Level 9.7, Total Bilirubin 0.2, Aspartate Amino Transf (AST/SGOT) 16, Alanine Aminotransferase (ALT/SGPT) 26, Alkaline Phosphatase 111, Total Creatine Kinase 148, Creatine Kinase MB 0.9, Creatine Kinase MB Relative Index 0.6, Troponin I 0.000, Pro-B-Type Natriuretic Peptide 95, Total Protein 8.0, Albumin 3.1L, Globulin 4.9, Albumin/Globulin Ratio 0.6L, Lipase 158 05/13/18 18:15: Arterial Blood pH 7.406, Arterial Blood Partial Pressure CO2 39.5, Arterial Blood Partial Pressure O2 75.3, Arterial Blood HCO3 24.3, Arterial Blood Oxygen Saturation 95.1, Arterial Blood Base Excess -0.3, Travis Test Positive 05/13/18 19:30: Troponin I 0.006, D-Dimer 1.38H, Lactate Dehydrogenase 253H, Angiotensin Converting Enzyme [Pending] 05/14/18 06:05: White Blood Count 8.8, Red Blood Count 4.31L, Hemoglobin 10.6L, Hematocrit 33.7L , Mean Corpuscular Volume 78L, Mean Corpuscular Hemoglobin 24.6L, Mean Corpuscular Hemoglobin Concent 31.5L, Red Cell Distribution Width 14.3, Platelet Count 207, Mean Platelet Volume 8.1, Neutrophils (%) (Auto) 63.4, Lymphocytes (%) (Auto) 25.9, Monocytes (%) (Auto) 10.1H, Eosinophils (%) (Auto) 0.1, Basophils (%) (Auto) 0.5, Sodium Level 142, Potassium Level 4.0, Chloride Level 105, Carbon Dioxide Level 28, Anion Gap 9, Blood Urea Nitrogen 31H, Creatinine 1.2, Estimat Glomerular Filtration Rate > 60, Glucose Level 116H, Calcium Level 9.6, Total Bilirubin 0.2, Aspartate Amino Transf (AST/SGOT) 22, Alanine Aminotransferase (ALT/SGPT) 28, Alkaline Phosphatase 112, Total Creatine Kinase 144, Total Protein 7.9, Albumin 2.9L, Hemoglobin A1c 6.7H, Uric Acid 7.2, Phosphorus Level 4.3, Magnesium Level 1.9, Iron Level 39L, Total Iron Binding Capacity 282, Percent Iron Saturation 14L, Unsaturated Iron Binding 243 , Ferritin 93, Direct Bilirubin < 0.1, Gamma Glutamyl Transpeptidase 24, Triglycerides Level 16L, Cholesterol Level 153, LDL Cholesterol 84, HDL Cholesterol 58, Cholesterol/HDL Ratio 2.6L, Vitamin B12 Level 1787H, Folate 10.7 , Thyroid Stimulating Hormone (TSH) 0.209L 05/14/18 10:00: Urine Color Pale yellow, Urine Appearance Clear, Urine pH 6, Urine Specific [place] 1.005, Urine Protein Negative, Urine Glucose (UA) Negative, Urine Ketones Negative, Urine Blood Negative, Urine Nitrite Negative, Urine Bilirubin Negative, Urine Urobilinogen Normal, Urine Leukocyte Esterase Negative, Urine RBC 0-2H, Urine WBC 0-2, Urine Squamous Epithelial Cells Few, Urine Bacteria Occasional Current Medications Medications (Trade) Dose Ordered Sig/Virgen Route PRN Reason Start Time Stop Time Status Last Admin Dose Admin Acetaminophen/ Hydrocodone Bitart ([place] 10/325) 1 tab Q4H PRN ORAL severe pain 05/14/18 11:03 05/21/18 11:02 Acetaminophen/ Hydrocodone Bitart ([place] 5/325) 1 tab Q4H PRN ORAL MODERATE PAIN 05/14/18 11:04 05/20/18 11:03 Albuterol/ Ipratropium (Albuterol/ Ipratropium) 3 ml Q6HRT HHN 05/13/18 19:00 05/18/18 18:59 05/14/18 07:38 Aspirin (ASA) 81 mg DAILY ORAL 05/14/18 09:00 06/13/18 08:59 05/14/18 08:10 Atorvastatin Calcium (Lipitor) 20 mg BEDTIME ORAL 05/13/18 22:00 06/12/18 21:59 05/13/18 23:17 Azithromycin (Zithromax) 250 mg DAILY ORAL 05/14/18 09:00 05/21/18 08:59 05/14/18 08:11 Furosemide (Lasix) 40 mg BID IV 05/13/18 19:30 06/12/18 19:29 05/14/18 08:11 Heparin Sodium (Porcine) (Heparin 5000 units/ml) 5,000 units Q12HR SUBQ 05/14/18 09:00 06/13/18 08:59 Montelukast Sodium (Singulair) 10 mg QPM ORAL 05/14/18 16:30 06/13/18 16:29 Prednisone (predniSONE) 60 mg DAILY ORAL 05/14/18 09:00 06/13/18 08:59 05/14/18 08:11 Salmeterol Xinafoate/ Fluticasone (Advair 250/50 Diskus) 1 puffs BID INH 05/14/18 09:00 06/13/18 08:59 05/14/18 09:44 Subjective ROS Limited/Unobtainable: No Allergies: Coded Allergies: PENICILLINS (Verified Allergy, Unknown, 08/31/17) TRAMADOL (Verified Allergy, Unknown, 08/31/17) Objective Last 24 Hour Vital Signs Date Time Temp Pulse Resp B/P (MAP) Pulse Ox O2 Delivery O2 Flow Rate FiO2 05/15/18 13:19 75 16 100 Room Air 21 05/15/18 13:12 75 16 98 Room Air 21 05/15/18 12:00 61 05/15/18 12:00 97.9 56 18 137/75 (95) 100 97.9 05/15/18 09:00 Room Air 05/15/18 09:00 97.7 66 22 139/78 (98) 96 97.7 05/15/18 08:00 66 05/15/18 07:06 78 16 100 Room Air 21 05/15/18 07:00 74 16 98 Room Air 21 05/15/18 04:00 63 05/15/18 04:00 97.8 69 21 146/75 (98) 95 97.8 05/15/18 00:23 72 16 97 Room Air 21 05/15/18 00:07 76 16 95 Room Air 21 05/15/18 00:00 97.5 68 20 137/68 (91) 96 97.5 05/15/18 00:00 66 05/14/18 21:00 Room Air 05/14/18 20:00 97.3 67 20 131/65 (87) 96 97.3 05/14/18 20:00 67 05/14/18 20:00 72 18 98 Room Air 21 05/14/18 19:45 70 18 96 Room Air 21 05/14/18 16:00 97.4 80 133/83 (100) 97 97.4 05/14/18 16:00 78 Intake and Output 05/14/18 05/15/18 19:00 07:00 Intake Total 720 ml 120 ml Output Total 1200 ml 1500 ml Balance -480 ml -1380 ml Intake Oral 720 ml IV Total 120 ml Output Urine Total 1200 ml 1500 ml Laboratory Tests 05/15/18 05:45: White Blood Count 9.2, Red Blood Count 3.99L, Hemoglobin 9.9L, Hematocrit 31.7L , Mean Corpuscular Volume 80, Mean Corpuscular Hemoglobin 25.0L, Mean Corpuscular Hemoglobin Concent 31.4L, Red Cell Distribution Width 15.1H, Platelet Count 197, Mean Platelet Volume 8.9, Neutrophils (%) (Auto) 47.2, Lymphocytes (%) (Auto) 38.3, Monocytes (%) (Auto) 11.9H, Eosinophils (%) (Auto) 1.7, Basophils (%) (Auto) 0.9, Sodium Level 139, Potassium Level 4.3, Chloride Level 105, Carbon Dioxide Level 31, Anion Gap 4L, Blood Urea Nitrogen 28H, Creatinine 1.1, Estimat Glomerular Filtration Rate > 60, Glucose Level 94, Calcium Level 9.0, C-Reactive Protein, Quantitative 0.5 05/15/18 07:35: Prothrombin Time 10.7, Prothromb Time International Ratio 1.0 Current Medications Medications (Trade) Dose Ordered Sig/Virgen Route PRN Reason Start Time Stop Time Status Last Admin Dose Admin Acetaminophen/ Hydrocodone Bitart ([place] 10/325) 1 tab Q4H PRN ORAL severe pain 05/14/18 11:03 05/21/18 11:02 05/15/18 12:00 Acetaminophen/ Hydrocodone Bitart ([place] 5/325) 1 tab Q4H PRN ORAL MODERATE PAIN 05/14/18 11:04 05/20/18 11:03 Albuterol/ Ipratropium (Albuterol/ Ipratropium) 3 ml Q6HRT HHN 05/13/18 19:00 05/18/18 18:59 05/15/18 13:13 Aspirin (ASA) 81 mg DAILY ORAL 05/14/18 09:00 06/13/18 08:59 05/15/18 08:15 Atorvastatin Calcium (Lipitor) 20 mg BEDTIME ORAL 05/13/18 22:00 06/12/18 21:59 05/14/18 20:06 Azithromycin (Zithromax) 250 mg DAILY ORAL 05/14/18 09:00 05/21/18 08:59 05/15/18 08:16 Docusate Sodium (Colace) 100 mg TWICE A DAY ORAL 05/14/18 18:00 06/13/18 17:59 05/15/18 08:15 Furosemide (Lasix) 40 mg BID IV 05/13/18 19:30 06/12/18 19:29 05/15/18 08:16 Heparin Sodium (Porcine) (Heparin 5000 units/ml) 5,000 units Q12HR SUBQ 05/14/18 09:00 06/13/18 08:59 Montelukast Sodium (Singulair) 10 mg QPM ORAL 05/14/18 16:30 06/13/18 16:29 9/26/18 16:25 Pantoprazole (Protonix) 40 mg DAILY ORAL 05/14/18 15:00 06/13/18 14:59 05/15/18 08:15 Prednisone (predniSONE) 60 mg DAILY ORAL 05/14/18 09:00 06/13/18 08:59 05/15/18 08:16 Salmeterol Xinafoate/ Fluticasone (Advair 250/50 Diskus) 1 puffs BID INH 05/14/18 09:00 06/13/18 08:59 05/15/18 09:27 Anival Hsieh MD May 15, 2018 15:21
[2018-05-15] MEDS: Montelukast 10mg tablet ORAL SCH (15:46)
[2018-05-15 16:00] VITALS: BP 122/78
[2018-05-15 20:00] VITALS: BP 134/68
[2018-05-15] MEDS: Atorvastatin 20mg tab ORAL SCH (20:51)
--- NOTE | 2018-05-15 21:35 | General Progress Note ---
Assessment/Plan Problem List: (1) CHF (congestive heart failure) ICD Codes: I50.9 - Heart failure, unspecified SNOMED: 06117781 (2) COPD exacerbation ICD Codes: J44.1 - Chronic obstructive pulmonary disease with (acute) exacerbation SNOMED: 305073601 (3) Anemia, iron deficiency ICD Codes: D50.9 - Iron deficiency anemia, unspecified SNOMED: 81211116 Status: progressing Assessment/Plan severe leg edema chf copd exac afebrile reviewed chart and labs Subjective ROS Limited/Unobtainable: Yes Allergies: Coded Allergies: PENICILLINS (Verified Allergy, Unknown, 08/31/17) TRAMADOL (Verified Allergy, Unknown, 08/31/17) Objective Last 24 Hour Vital Signs Date Time Temp Pulse Resp B/P (MAP) Pulse Ox O2 Delivery O2 Flow Rate FiO2 05/15/18 20:03 75 18 98 Room Air 21 05/15/18 19:53 76 18 97 Room Air 05/15/18 16:00 70 05/15/18 16:00 97.3 59 24 122/78 (93) 99 97.3 05/15/18 13:19 75 16 100 Room Air 21 05/15/18 13:12 75 16 98 Room Air 21 05/15/18 12:00 61 05/15/18 12:00 97.9 56 18 137/75 (95) 100 97.9 05/15/18 09:00 Room Air 05/15/18 09:00 97.7 66 22 139/78 (98) 96 97.7 05/15/18 08:00 66 05/15/18 07:06 78 16 100 Room Air 21 05/15/18 07:00 74 16 98 Room Air 21 05/15/18 04:00 63 05/15/18 04:00 97.8 69 21 146/75 (98) 95 97.8 05/15/18 00:23 72 16 97 Room Air 21 05/15/18 00:07 76 16 95 Room Air 21 05/15/18 00:00 97.5 68 20 137/68 (91) 96 97.5 05/15/18 00:00 66 Intake and Output 05/14/18 05/15/18 19:00 07:00 Intake Total 720 ml 120 ml Output Total 1200 ml 1500 ml Balance -480 ml -1380 ml Intake Oral 720 ml IV Total 120 ml Output Urine Total 1200 ml 1500 ml Laboratory Tests 05/15/18 05:45: White Blood Count 9.2, Red Blood Count 3.99L, Hemoglobin 9.9L, Hematocrit 31.7L , Mean Corpuscular Volume 80, Mean Corpuscular Hemoglobin 25.0L, Mean Corpuscular Hemoglobin Concent 31.4L, Red Cell Distribution Width 15.1H, Platelet Count 197, Mean Platelet Volume 8.9, Neutrophils (%) (Auto) 47.2, Lymphocytes (%) (Auto) 38.3, Monocytes (%) (Auto) 11.9H, Eosinophils (%) (Auto) 1.7, Basophils (%) (Auto) 0.9, Sodium Level 139, Potassium Level 4.3, Chloride Level 105, Carbon Dioxide Level 31, Anion Gap 4L, Blood Urea Nitrogen 28H, Creatinine 1.1, Estimat Glomerular Filtration Rate > 60, Glucose Level 94, Calcium Level 9.0, C-Reactive Protein, Quantitative 0.5 05/15/18 07:35: Prothrombin Time 10.7, Prothromb Time International Ratio 1.0 Height (Feet): 6 Height (Inches): 3.00 Weight (Pounds): 327 Respiratory/Chest: lungs clear Brittney Shepard MD May 15, 2018 21:35
--- NOTE | 2018-05-15 21:52 | General Progress Note ---
Assessment/Plan Assessment/Plan (1) B/L LE pain (2) Edema (3) B/L knee pain (4) B/L Knee OA (5) Morbid obesity Pt to be continued on Korbel. D/w Dr. Hurley and he concurred. Subjective Date patient seen: May 15, 2018 Time patient seen: 21:50 Allergies: Coded Allergies: PENICILLINS (Verified Allergy, Unknown, 08/31/17) TRAMADOL (Verified Allergy, Unknown, 08/31/17) Subjective REVIEW OF SYSTEMS: Denies rash, fever, chills, sweating, dizziness, drowsiness, blurred vision, sore throat, or change in weight. No shortness of breath or chest pain. No nausea, vomiting, diarrhea, or blood in the stool or urine. No bowel or bladder incontinence. No dysuria. He is complaining of bilateral lower extremity pain. SUBJECTIVE: Patient is a known patient from prior admission. Has been admitted due to LE edema. Still has c/o knee pain. Started on [place] 10/325mg PO 1 tab Q4H PRN. Objective Last 24 Hour Vital Signs Date Time Temp Pulse Resp B/P (MAP) Pulse Ox O2 Delivery O2 Flow Rate FiO2 05/15/18 20:03 75 18 98 Room Air 05/15/18 19:53 76 18 97 Room Air 05/15/18 16:00 70 05/15/18 16:00 97.3 59 24 122/78 (93) 99 97.3 05/15/18 13:19 75 16 100 Room Air 05/15/18 13:12 75 16 98 Room Air 05/15/18 12:00 61 05/15/18 12:00 97.9 56 18 137/75 (95) 100 97.9 05/15/18 09:00 Room Air 05/15/18 09:00 97.7 66 22 139/78 (98) 96 97.7 05/15/18 08:00 66 05/15/18 07:06 78 16 100 Room Air 21 05/15/18 07:00 74 16 98 Room Air 21 05/15/18 04:00 63 05/15/18 04:00 97.8 69 21 146/75 (98) 95 97.8 05/15/18 00:23 72 16 97 Room Air 21 9/27/18 00:07 76 16 95 Room Air 21 05/15/18 00:00 97.5 68 20 137/68 (91) 96 97.5 05/15/18 00:00 66 Intake and Output 05/14/18 05/15/18 19:00 07:00 Intake Total 720 ml 120 ml Output Total 1200 ml 1500 ml Balance -480 ml -1380 ml Intake Oral 720 ml IV Total 120 ml Output Urine Total 1200 ml 1500 ml Laboratory Tests 05/15/18 05:45: White Blood Count 9.2, Red Blood Count 3.99L, Hemoglobin 9.9L, Hematocrit 31.7L , Mean Corpuscular Volume 80, Mean Corpuscular Hemoglobin 25.0L, Mean Corpuscular Hemoglobin Concent 31.4L, Red Cell Distribution Width 15.1H, Platelet Count 197, Mean Platelet Volume 8.9, Neutrophils (%) (Auto) 47.2, Lymphocytes (%) (Auto) 38.3, Monocytes (%) (Auto) 11.9H, Eosinophils (%) (Auto) 1.7, Basophils (%) (Auto) 0.9, Sodium Level 139, Potassium Level 4.3, Chloride Level 105, Carbon Dioxide Level 31, Anion Gap 4L, Blood Urea Nitrogen 28H, Creatinine 1.1, Estimat Glomerular Filtration Rate > 60, Glucose Level 94, Calcium Level 9.0, C-Reactive Protein, Quantitative 0.5 05/15/18 07:35: Prothrombin Time 10.7, Prothromb Time International Ratio 1.0 Height (Feet): 6 Height (Inches): 3.00 Weight (Pounds): 327 Objective GENERAL: Alert, awake, and oriented. LUNGS: Decreased breath sounds bilaterally. HEART: S1 and S2 regular. ABDOMEN: Obese. EXTREMITIES: Severe edema noted in bilateral lower extremities. NEURO: No changes. Leonel Singer May 15, 2018 21:52
--- NOTE | 2018-05-15 23:31 | Consultation ---
History of Present Illness General Date patient seen: May 15, 2018 Time patient seen: 23:21 Chief Complaint: Edema Present Illness HPI 62 y/o AAF presents from home with leg edema and shortness of breath. CXR with no effusion or PNA. He is stable on room air. He has a hx of smoking, COPD, THERON , CHF, hypertension. He was recently discharged on April 30 for heart failure. Allergies: Coded Allergies: PENICILLINS (Verified Allergy, Unknown, 08/31/17) TRAMADOL (Verified Allergy, Unknown, 08/31/17) Medication History Scheduled Aspirin* (Aspirin*), 81 MG ORAL DAILY, (Reported) Atorvastatin Calcium* (Lipitor*), 20 MG ORAL BEDTIME, (Reported) Benazepril Hcl* (Benazepril Hcl*), 20 MG ORAL BID, (Reported) Fluticasone/Salmeterol (Advair 250-50 Diskus), 1 PUFF INH EVERY 12 HOURS, ( Reported) Furosemide* (Lasix*), 40 MG ORAL DAILY, (Reported) Montelukast Sodium* (Singulair*), 10 MG ORAL DAILY, (Reported) Scheduled PRN Hydrocodone Bit/Acetaminophen 5-325* ([place] 5-325*), 1 TAB ORAL Q4H PRN for For Pain, (Reported) Discontinued Medications Amlodipine Besylate (Norvasc), 5 MG ORAL BID PRN Discontinued Reason: Pt stopped taking med Ondansetron Odt* (Zofran Odt*), 4 MG ORAL Q6H PRN for Nausea & Vomiting Discontinued Reason: Pt stopped taking med Oxycodone/Acetaminophen 5-325* (Percocet 5-325 Mg Tablet*), 1 TAB ORAL Q6H PRN for For Pain, (Reported) Discontinued Reason: Pt stopped taking med Simvastatin (Zocor), 40 MG ORAL BEDTIME, (Reported) Discontinued Reason: Pt stopped taking med Tiotropium [place]* (Spiriva*), 1 PUFF INH DAILY, (Reported) Discontinued Reason: Pt stopped taking med Patient History Healthcare decision maker SELF Resuscitation status Full Code Advanced Directive on File Review of Systems Constitutional: Reports: malaise, weakness Respiratory: Reports: shortness of breath, wheezing, DANIELS, sputum Cardiovascular: Reports: edema Gastrointestinal: Reports: no symptoms Genitourinary: Reports: no symptoms Musculoskeletal: Reports: no symptoms Skin: Reports: no symptoms Neurological: Reports: no symptoms Endocrine: Reports: no symptoms Hematologic/Lymphatic: Reports: no symptoms Physical Exam General Appearance: no apparent distress, alert Lines, tubes and drains: peripheral HEENT: normocephalic, atraumatic, anicteric, mucous membranes moist, PERRL Neck: non-tender, normal alignment, supple, normal inspection Respiratory/Chest: chest wall non-tender, lungs clear, normal breath sounds Cardiovascular/Chest: normal peripheral pulses, normal rate, regular rhythm Abdomen: normal bowel sounds, non tender, soft, no organomegaly Genitourinary/Rectal: normal genital exam Extremities: normal range of motion, non-tender, normal inspection Skin Exam: normal pigmentation Neurologic: manager contact II-XII grossly normal, no motor/sensory deficits Last 24 Hour Vital Signs Date Time Temp Pulse Resp B/P (MAP) Pulse Ox O2 Delivery O2 Flow Rate FiO2 05/15/18 21:00 Room Air 05/15/18 20:03 75 18 98 Room Air 05/15/18 20:00 77 05/15/18 20:00 98.1 71 24 134/68 (90) 99 98.1 05/15/18 19:53 76 18 97 Room Air 05/15/18 16:00 70 05/15/18 16:00 97.3 59 24 122/78 (93) 99 97.3 05/15/18 13:19 75 16 100 Room Air 05/15/18 13:12 75 16 98 Room Air 05/15/18 12:00 61 05/15/18 12:00 97.9 56 18 137/75 (95) 100 97.9 05/15/18 09:00 Room Air 05/15/18 09:00 97.7 66 22 139/78 (98) 96 97.7 05/15/18 08:00 66 05/15/18 07:06 78 16 100 Room Air 05/15/18 07:00 74 16 98 Room Air 05/15/18 04:00 63 05/15/18 04:00 97.8 69 21 146/75 (98) 95 97.8 05/15/18 00:23 72 16 97 Room Air 05/15/18 00:07 76 16 95 Room Air 05/15/18 00:00 97.5 68 20 137/68 (91) 96 97.5 05/15/18 00:00 66 Intake and Output 05/14/18 05/15/18 19:00 07:00 Intake Total 720 ml 120 ml Output Total 1200 ml 1500 ml Balance -480 ml -1380 ml Intake Oral 720 ml IV Total 120 ml Output Urine Total 1200 ml 1500 ml Laboratory Tests Test 05/15/18 05:45 05/15/18 07:35 White Blood Count 9.2 K/UL (4.8-10.8) Red Blood Count 3.99 M/UL (4.70-6.10) L Hemoglobin 9.9 G/DL (14.2-18.0) L Hematocrit 31.7 % (42.0-52.0) L Mean Corpuscular Volume 80 FL (80-99) Mean Corpuscular Hemoglobin 25.0 PG (27.0-31.0) L Mean Corpuscular Hemoglobin Concent 31.4 G/DL (32.0-36.0) L Red Cell Distribution Width 15.1 % (11.6-14.8) H Platelet Count 197 K/UL (150-450) Mean Platelet Volume 8.9 FL (6.5-10.1) Neutrophils (%) (Auto) 47.2 % (45.0-75.0) Lymphocytes (%) (Auto) 38.3 % (20.0-45.0) Monocytes (%) (Auto) 11.9 % (1.0-10.0) H Eosinophils (%) (Auto) 1.7 % (0.0-3.0) Basophils (%) (Auto) 0.9 % (0.0-2.0) Sodium Level 139 MMOL/L (136-145) Potassium Level 4.3 MMOL/L (3.5-5.1) Chloride Level 105 MMOL/L (98-107) Carbon Dioxide Level 31 MMOL/L (21-32) Anion Gap 4 mmol/L (5-15) L Blood Urea Nitrogen 28 mg/dL (7-18) H Creatinine 1.1 MG/DL (0.55-1.30) Estimat Glomerular Filtration Rate > 60 mL/min (>60) Glucose Level 94 MG/DL (74-106) Calcium Level 9.0 MG/DL (8.5-10.1) C-Reactive Protein, Quantitative 0.5 mg/dL (0.00-0.90) Prothrombin Time 10.7 SEC (9.30-11.50) Prothromb Time International Ratio 1.0 (0.9-1.1) Height (Feet): 6 Height (Inches): 3.00 Weight (Pounds): 327 Medications Current Medications Medications (Trade) Dose Ordered Sig/Virgen Route PRN Reason Start Time Stop Time Status Last Admin Dose Admin Acetaminophen/ Hydrocodone Bitart ([place] 10/325) 1 tab Q4H PRN ORAL severe pain 05/14/18 11:03 05/21/18 11:02 05/15/18 20:52 Albuterol/ Ipratropium (Albuterol/ Ipratropium) 3 ml Q6HRT HHN 05/13/18 19:00 05/18/18 18:59 05/15/18 19:52 Aspirin (ASA) 81 mg DAILY ORAL 05/14/18 09:00 06/13/18 08:59 05/15/18 08:15 Atorvastatin Calcium (Lipitor) 20 mg BEDTIME ORAL 05/13/18 22:00 06/12/18 21:59 05/15/18 20:51 Azithromycin (Zithromax) 250 mg DAILY ORAL 05/14/18 09:00 05/21/18 08:59 05/15/18 08:16 Docusate Sodium (Colace) 100 mg TWICE A DAY ORAL 05/14/18 18:00 06/13/18 17:59 05/15/18 17:14 Furosemide (Lasix) 40 mg BID IV 05/13/18 19:30 06/12/18 19:29 05/15/18 17:15 Heparin Sodium (Porcine) (Heparin 5000 units/ml) 5,000 units Q12HR SUBQ 05/14/18 09:00 06/13/18 08:59 Montelukast Sodium (Singulair) 10 mg QPM ORAL 05/14/18 16:30 06/13/18 16:29 05/15/18 15:46 Pantoprazole (Protonix) 40 mg DAILY ORAL 05/14/18 15:00 06/13/18 14:59 05/15/18 08:15 Prednisone (predniSONE) 60 mg DAILY ORAL 05/14/18 09:00 06/13/18 08:59 05/15/18 08:16 Salmeterol Xinafoate/ Fluticasone (Advair 250/50 Diskus) 1 puffs BID INH 05/14/18 09:00 06/13/18 08:59 05/15/18 19:52 Assessment/Plan Status: stable Assessment/Plan Assessment: 1. CHF. 2. COPD. 3. Chronic lower extremity edema. 4. Obesity. 5. Possible THERON/OHV. 6. Hypertension. 7. Hyperlipidemia. 8. Chronic pain syndrome Plan: Patient currently stable on room air. Continue Abx Breathing treatments, steroids, pulmonary toilet, optimize pulmonary hygiene, ambulate TTE with preserved LV function Continue diuresis and compression stockings Salt restriction Cardiac rehab Video swallow study to assess aspiration risk Glucose control . Defer cardiac cath outpatient stress test Anival Hernández MD May 15, 2018 23:31
[2018-05-16] VITALS: BP 132/77
[2018-05-16] MEDS: HYDROcodone/Acetamin 10/325 tab ORAL PRN ×3 (01:22→10:05)
[2018-05-16] MEDS: Albuterol/Ipratropium 3ml neb HHN SCH ×3 (01:25→13:00)
[2018-05-16 04:00] VITALS: BP 136/72
[2018-05-16 05:30] LABS: BASOPHILS % (AUTO) 0.9 % (0.0-2.0); EOSINOPHILS % (AUTO) 1.7 % (0.0-3.0); HEMATOCRIT 31.4 % (42.0-52.0); HEMOGLOBIN 10.1 G/DL (14.2-18.0); LYMPHOCYTES % (AUTO) 40.2 % (20.0-45.0); MEAN CORPUSCULAR VOLUME 79 FL (80-99); MONOCYTES % (AUTO) 12.8 % (1.0-10.0); NEUTROPHILS % (AUTO) 44.4 % (45.0-75.0); PLATELET COUNT 181 K/UL (150-450); RED BLOOD COUNT 3.96 M/UL (4.70-6.10); RED CELL DISTRIBUTION WIDTH 14.9 % (11.6-14.8); WHITE BLOOD COUNT 9.6 K/UL (4.8-10.8)
[2018-05-16 05:33] LABS: ANION GAP 4 mmol/L (5-15); BLOOD UREA NITROGEN 30 mg/dL (7-18); CARBON DIOXIDE 31 MMOL/L (21-32); CHLORIDE 104 MMOL/L (98-107); CREATININE 1.2 MG/DL (0.55-1.30); SODIUM 139 MMOL/L (136-145)
--- NOTE | 2018-05-16 06:10 | General Progress Note ---
Assessment/Plan Assessment/Plan Assessment and Recs: # Anemia of iron deficiency -- anemia panel has been reviewed, hgb goal >7 --> transfuse as needed, hgb goal >8 given cardiac history --> iv iron has been started x 5 days --> no evidence of hemolysis # Borderline mediastinal lymphadenopathy, stable or perhaps minimally improved since previous study. Nonspecific as regards etiology. Multiple small right lung nodules, also previously reported, appearing unchanged. --> CT scan q6-12months, will order prn --> will f/u with PCP # Elevated D-Dimer --> have ordered for inr/pt/ptt which are wnl --> no evidence for bleeding # CHF (congestive heart failure) exacerbation --> Iv lasix prn --> appreciate cards recs Dr. Hernández # Chronic venostasis to his lower extremities. COPD exacerbation with shortness of breath. --> Steroids. The patient was noted to have chronic venostasis to his lower extremities. --> Patient was given IV Lasix with some improvement in symptoms Greatly appreciate consultation. Subjective Constitutional: Denies: no symptoms, chills, diaphoresis, fever, malaise, weakness, other HEENT: Denies: no symptoms, eye pain, blurred vision, tearing, double vision, ear pain, ear discharge, nose pain, nose congestion, throat pain, throat swelling, mouth pain, mouth swelling, other Cardiovascular: Denies: no symptoms, chest pain, edema, irregular heart rate, lightheadedness, palpitations, syncope, other Respiratory: Denies: no symptoms, cough, orthopnea, shortness of breath, SOB with excertion, SOB at rest, sputum, stridor, wheezing, other Gastrointestinal/Abdominal: Denies: no symptoms, abdomen distended, abdominal pain, black stools, tarry stools, blood in stool, constipated, diarrhea, difficulty swallowing, nausea, poor appetite, poor fluid intake, rectal bleeding , vomiting, other Genitourinary: Denies: no symptoms, burning, discharge, frequency, flank pain, hematuria, incontinence, pain, urgency, other Neurologic/Psychiatric: Denies: no symptoms, anxiety, depressed, emotional problems, headache, numbness, paresthesia, pre-existing deficit, seizure, tingling, tremors, weakness, other Hematologic/Lymphatic: Reports: no symptoms Allergies: Coded Allergies: PENICILLINS (Verified Allergy, Unknown, 08/31/17) TRAMADOL (Verified Allergy, Unknown, 08/31/17) Subjective feeling better, less edema, overall improved Objective Last 24 Hour Vital Signs Date Time Temp Pulse Resp B/P (MAP) Pulse Ox O2 Delivery O2 Flow Rate FiO2 05/16/18 04:00 63 05/16/18 04:00 98.0 86 21 136/72 (93) 98 98.0 05/16/18 01:35 65 20 99 Room Air 21 05/16/18 01:25 61 20 97 Room Air 21 05/16/18 00:00 98.0 60 21 132/77 (95) 96 98.0 05/16/18 00:00 65 05/15/18 21:00 Room Air 05/15/18 20:03 75 18 98 Room Air 21 05/15/18 20:00 77 05/15/18 20:00 98.1 71 24 134/68 (90) 99 98.1 05/15/18 19:53 76 18 97 Room Air 21 05/15/18 16:00 70 05/15/18 16:00 97.3 59 24 122/78 (93) 99 97.3 05/15/18 13:19 75 16 100 Room Air 21 05/15/18 13:12 75 16 98 Room Air 21 05/15/18 12:00 61 05/15/18 12:00 97.9 56 18 137/75 (95) 100 97.9 05/15/18 09:00 Room Air 05/15/18 09:00 97.7 66 22 139/78 (98) 96 97.7 05/15/18 08:00 66 05/15/18 07:06 78 16 100 Room Air 21 05/15/18 07:00 74 16 98 Room Air 21 Intake and Output 05/15/18 05/16/18 19:00 07:00 Intake Total 500 ml Output Total 2400 ml Balance -1900 ml Intake Oral 500 ml Output Urine Total 2400 ml Laboratory Tests 05/15/18 07:35: Prothrombin Time 10.7, Prothromb Time International Ratio 1.0 05/16/18 04:50: White Blood Count 9.6, Red Blood Count 3.96L, Hemoglobin 10.1L, Hematocrit 31.4L , Mean Corpuscular Volume 79L, Mean Corpuscular Hemoglobin 25.5L, Mean Corpuscular Hemoglobin Concent 32.1, Red Cell Distribution Width 14.9H, Platelet Count 181, Mean Platelet Volume 8.7, Neutrophils (%) (Auto) 44.4L, Lymphocytes (%) (Auto) 40.2, Monocytes (%) (Auto) 12.8H, Eosinophils (%) (Auto) 1.7, Basophils (%) (Auto) 0.9, Sodium Level 139, Potassium Level 4.0, Chloride Level 104, Carbon Dioxide Level 31, Anion Gap 4L, Blood Urea Nitrogen 30H, Creatinine 1.2, Estimat Glomerular Filtration Rate > 60, Glucose Level 103, Uric Acid [Pending], Calcium Level 9.0, Phosphorus Level [Pending], Magnesium Level [Pending], Total Bilirubin [Pending], Direct Bilirubin [Pending], Gamma Glutamyl Transpeptidase [Pending], Aspartate Amino Transf (AST/SGOT) [Pending], Alanine Aminotransferase (ALT/SGPT) [Pending], Alkaline Phosphatase [Pending], Pro-B-Type Natriuretic Peptide [Pending], Total Protein [Pending], Albumin [ Pending] Height (Feet): 6 Height (Inches): 3.00 Weight (Pounds): 327 General Appearance: no apparent distress EENT: normal ENT inspection Neck: supple Cardiovascular: regular rhythm Respiratory/Chest: normal breath sounds Abdomen: non tender Extremities: non-tender Edema: 2+ Leg (L), 2+ Leg (R), 2+ Pedal (L), 2+ Pedal (R) Neurologic: alert Skin: warm/dry Kade Fermin MD May 16, 2018 06:10
[2018-05-16 06:12] LABS: ALANINE AMINOTRANSFERASE 29 U/L (12-78); ALBUMIN 2.6 G/DL (3.4-5.0); ALKALINE PHOSPHATASE 95 U/L (46-116); ASPARTATE AMINO TRANSFERASE 15 U/L (15-37); BILIRUBIN,DIRECT < 0.1 MG/DL (0.0-0.3); BILIRUBIN,TOTAL 0.2 MG/DL (0.2-1.0); GAMMA GLUTAMYL TRANSPEPTIDASE 24 U/L (5-85); PHOSPHORUS 3.3 MG/DL (2.5-4.9)
[2018-05-16 08:00] VITALS: BP 127/60
[2018-05-16] MEDS: Docusate 100mg cap ORAL SCH (08:10)
[2018-05-16] MEDS: Azithromycin 250mg tab ORAL SCH (08:10)
[2018-05-16] MEDS: Aspirin Baby 81mg ORAL SCH (08:10)
[2018-05-16] MEDS: Heparin 5000 units/ml inj SUBQ SCH (08:10)
[2018-05-16] MEDS: Advair 250/50 Inhaler - 14 dose INH SCH (10:07)
--- NOTE | 2018-05-16 10:52 | Infectious Diseases Prog Note ---
Assessment/Plan Assessment/Plan IMPRESSION: 1. Chronic obstructive pulmonary disease exacerbation. 2. Diastolic congestive heart failure. 3. Hypoxic respiratory failure. 4. Anemia. 5. Hypertension. P; Agree with discharge with PO Zithromax X 2 days Case was D/W RN Subjective ROS Limited/Unobtainable: No Constitutional: Reports: no symptoms Respiratory: Reports: productive cough Cardiovascular: Reports: other - improving edema Gastrointestinal/Abdominal: Reports: no symptoms Genitourinary: Reports: no symptoms Allergies: Coded Allergies: PENICILLINS (Verified Allergy, Unknown, 08/31/17) TRAMADOL (Verified Allergy, Unknown, 08/31/17) Objective Vital Signs Last 24 Hour Vital Signs Date Time Temp Pulse Resp B/P (MAP) Pulse Ox O2 Delivery O2 Flow Rate FiO2 05/16/18 09:00 Room Air 05/16/18 08:00 98.6 64 20 127/60 (82) 99 98.6 05/16/18 08:00 66 05/16/18 07:42 69 18 99 Room Air 05/16/18 07:33 66 20 96 Room Air 21 05/16/18 04:00 63 05/16/18 04:00 98.0 86 21 136/72 (93) 98 98.0 05/16/18 01:35 65 20 99 Room Air 21 05/16/18 01:25 61 20 97 Room Air 21 05/16/18 00:00 98.0 60 21 132/77 (95) 96 98.0 05/16/18 00:00 65 05/15/18 21:00 Room Air 05/15/18 20:03 75 18 98 Room Air 21 05/15/18 20:00 77 05/15/18 20:00 98.1 71 24 134/68 (90) 99 98.1 05/15/18 19:53 76 18 97 Room Air 21 05/15/18 16:00 70 05/15/18 16:00 97.3 59 24 122/78 (93) 99 97.3 05/15/18 13:19 75 16 100 Room Air 21 05/15/18 13:12 75 16 98 Room Air 21 05/15/18 12:00 61 05/15/18 12:00 97.9 56 18 137/75 (95) 100 97.9 Height (Feet): 6 Height (Inches): 3.00 Weight (Pounds): 333 General Appearance: no acute distress HEENT: mucous membranes moist Respiratory/Chest: lungs clear, decreased breath sounds Cardiovascular: normal rate Abdomen: soft, non tender Extremities: other - edema of leg improving Neurologic/Psychiatric: alert, oriented x 3, responsive Laboratory Tests Test 05/16/18 04:50 White Blood Count 9.6 K/UL (4.8-10.8) Red Blood Count 3.96 M/UL (4.70-6.10) L Hemoglobin 10.1 G/DL (14.2-18.0) L Hematocrit 31.4 % (42.0-52.0) L Mean Corpuscular Volume 79 FL (80-99) L Mean Corpuscular Hemoglobin 25.5 PG (27.0-31.0) L Mean Corpuscular Hemoglobin Concent 32.1 G/DL (32.0-36.0) Red Cell Distribution Width 14.9 % (11.6-14.8) H Platelet Count 181 K/UL (150-450) Mean Platelet Volume 8.7 FL (6.5-10.1) Neutrophils (%) (Auto) 44.4 % (45.0-75.0) L Lymphocytes (%) (Auto) 40.2 % (20.0-45.0) Monocytes (%) (Auto) 12.8 % (1.0-10.0) H Eosinophils (%) (Auto) 1.7 % (0.0-3.0) Basophils (%) (Auto) 0.9 % (0.0-2.0) Sodium Level 139 MMOL/L (136-145) Potassium Level 4.0 MMOL/L (3.5-5.1) Chloride Level 104 MMOL/L (98-107) Carbon Dioxide Level 31 MMOL/L (21-32) Anion Gap 4 mmol/L (5-15) L Blood Urea Nitrogen 30 mg/dL (7-18) H Creatinine 1.2 MG/DL (0.55-1.30) Estimat Glomerular Filtration Rate > 60 mL/min (>60) Glucose Level 103 MG/DL (74-106) Uric Acid 7.1 MG/DL (2.6-7.2) Calcium Level 9.0 MG/DL (8.5-10.1) Phosphorus Level 3.3 MG/DL (2.5-4.9) Magnesium Level 1.9 MG/DL (1.8-2.4) Total Bilirubin 0.2 MG/DL (0.2-1.0) Direct Bilirubin < 0.1 MG/DL (0.0-0.3) Gamma Glutamyl Transpeptidase 24 U/L (5-85) Aspartate Amino Transf (AST/SGOT) 15 U/L (15-37) Alanine Aminotransferase (ALT/SGPT) 29 U/L (12-78) Alkaline Phosphatase 95 U/L (46-116) Pro-B-Type Natriuretic Peptide 363 pg/mL (0-125) H Total Protein 7.1 G/DL (6.4-8.2) Albumin 2.6 G/DL (3.4-5.0) L Current Medications Medications (Trade) Dose Ordered Sig/Virgen Route PRN Reason Start Time Stop Time Status Last Admin Dose Admin Acetaminophen/ Hydrocodone Bitart ([place] 10/325) 1 tab Q4H PRN ORAL severe pain 05/14/18 11:03 05/21/18 11:02 05/16/18 10:05 Albuterol/ Ipratropium (Albuterol/ Ipratropium) 3 ml Q6HRT HHN 05/13/18 19:00 05/18/18 18:59 05/16/18 07:33 Aspirin (ASA) 81 mg DAILY ORAL 05/14/18 09:00 06/13/18 08:59 05/16/18 08:10 Atorvastatin Calcium (Lipitor) 20 mg BEDTIME ORAL 05/13/18 22:00 06/12/18 21:59 05/15/18 20:51 Azithromycin (Zithromax) 250 mg DAILY ORAL 05/14/18 09:00 05/21/18 08:59 05/16/18 08:10 Docusate Sodium (Colace) 100 mg TWICE A DAY ORAL 05/14/18 18:00 06/13/18 17:59 05/16/18 08:10 Furosemide (Lasix) 40 mg BID IV 05/13/18 19:30 06/12/18 19:29 05/16/18 08:10 Heparin Sodium (Porcine) (Heparin 5000 units/ml) 5,000 units Q12HR SUBQ 05/14/18 09:00 06/13/18 08:59 Montelukast Sodium (Singulair) 10 mg QPM ORAL 05/14/18 16:30 06/13/18 16:29 05/15/18 15:46 Pantoprazole (Protonix) 40 mg DAILY ORAL 05/14/18 15:00 06/13/18 14:59 05/16/18 08:10 Prednisone (predniSONE) 60 mg DAILY ORAL 05/14/18 09:00 06/13/18 08:59 05/16/18 08:09 Salmeterol Xinafoate/ Fluticasone (Advair 250/50 Diskus) 1 puffs BID INH 05/14/18 09:00 06/13/18 08:59 05/16/18 10:07 John Villalobos MD May 16, 2018 10:52
[2018-05-16 12:00] VITALS: BP 137/66
[2018-05-16] MEDS ORDERED: AZITHROMYCIN500 MG ORAL (12:55)
--- NOTE | 2018-05-16 13:10 | Pulmonology Progress Note ---
Assessment/Plan Assessment/Plan Pulmonary Progress Note Problems: (1) CHF (congestive heart failure) (2) COPD exacerbation Assessment/Plan ASSESSMENT: The patient is a 62-year-old male, former smoker with a history of CHF with diastolic dysfunction, stated history of COPD, obesity, likely THERON, obesity hypoventilation, hypertension, and hyperlipidemia, presenting with shortness of breath in the setting of PND, orthopnea, and bilateral lower extremity edema, likely secondary to decompensated heart failure plus or minus an exacerbation of his underlying obstructive lung disease. Of note, he previously had a CT of the chest, which showed some faint diffuse bilateral ground-glass opacities and diffuse mediastinal and hilar adenopathy for which a differential would include reactive inflammatory edema, sarcoidosis, or neoplastic processes. PROBLEM LIST: 1. Shortness of breath and dyspnea likely secondary to decompensated heart failure and underlying obstructive lung disease. 2. Stated history of COPD with possible acute exacerbation. 3. Known faint bilateral ground-glass opacities with mediastinal and hilar lymphadenopathy - NODULES STABLE, LAD IMPROVED and GGO's RESOLVED 4. CHF with mild diastolic dysfunction and acute decompensated heart failure. 5. Hypertension, hyperlipidemia. 6. Normocytic anemia. TREATMENT PLAN: 1. Optimize pulmonary hygiene/mobilize as tolerated. 2. PRN O2 to keep saturations greater than 90%. 3. Jkolc-onp-bywdi and p.r.n. bronchodilators. 4. The patient received Solu-Medrol 125 in the ER. We will continue prednisone 60 mg p.o. daily (D2/5) 5. PO azithromycin for anti-inflammatory effect (D2/5). 6. Monitor volumes and renal function, continue IV lasix as able 7. F/U DUPLEX 8. F/U BETHANY and LDH 9. Cardiology evaluation. 10. Consider Hem/Onc evaluation given the discrepancy between the serum albumin and the total protein. I would consider a workup for plasma cell disorder. 12. DVT prophylaxis, heparin subcutaneous. 13. Aspiration precautions. Subjective Allergies: Coded Allergies: PENICILLINS (Verified Allergy, Unknown, 08/31/17) TRAMADOL (Verified Allergy, Unknown, 08/31/17) Subjective AFVSS, stable on RA, CT reviewed and stable Less SOB, less PND/orthopnea, no cough, no wheezing, no F/C Objective Last 24 Hour Vital Signs Date Time Temp Pulse Resp B/P (MAP) Pulse Ox O2 Delivery O2 Flow Rate FiO2 9/26/18 12:00 97.9 65 136/73 (94) 99 97.9 05/14/18 09:00 71 05/14/18 09:00 Room Air 05/14/18 08:00 97.7 72 128/86 (100) 97 97.7 05/14/18 07:40 91 18 100 Room Air 21 05/14/18 07:30 86 16 98 Room Air 21 05/14/18 07:30 86 16 Room Air 21 05/14/18 04:00 79 05/14/18 04:00 97.9 72 137/64 (88) 99 97.9 05/14/18 01:23 82 18 100 Room Air 21 05/14/18 01:11 84 20 97 Room Air 21 05/14/18 00:00 74 05/14/18 00:00 98.0 79 138/73 (94) 96 98.0 05/13/18 22:17 Room Air 05/13/18 20:00 97.0 85 133/60 (84) 97.0 05/13/18 20:00 84 05/13/18 19:17 94 20 98 Room Air 21 05/13/18 19:17 94 20 Room Air 21 05/13/18 18:57 98.5 81 22 110/46 100 Room Air 21 98.5 05/13/18 18:00 81 22 110/46 100 Room Air 21 05/13/18 16:23 98.5 95 20 120/53 100 Room Air 21 98.5 05/13/18 15:24 66 19 100 Room Air 21 05/13/18 15:00 67 19 100 Room Air 21 05/13/18 14:57 69 19 100 Room Air 21 05/13/18 14:49 79 22 100 Room Air 21 05/13/18 14:49 98.5 05/13/18 14:46 89 24 Room Air 21 05/13/18 14:46 98.5 75 24 117/67 95 Room Air 21 98.5 05/13/18 14:38 79 24 100 Room Air 21 05/13/18 14:36 89 24 Room Air 21 05/13/18 14:31 89 24 95 Room Air 21 05/13/18 14:19 97.6 05/13/18 13:36 97.6 89 24 117/67 95 Room Air 97.5 Intake and Output 05/13/18 05/14/18 19:00 07:00 Output Total 2700 ml Balance -2700 ml Output Urine Total 2700 ml # Voids 1 6 # Bowel Movements 1 General Appearance: no acute distress, other - obese HEENT: normocephalic, atraumatic, anicteric, mucous membranes moist Respiratory/Chest: chest wall non-tender, lungs clear - but distant with BiB rales, no respiratory distress, no accessory muscle use Cardiovascular: normal peripheral pulses, normal rate, regular rhythm Abdomen: normal bowel sounds, soft, non tender, no organomegaly, non distended Extremities: no cyanosis, no clubbing, other - 2+ NELLIE Laboratory Tests 05/13/18 14:10: White Blood Count 7.4, Red Blood Count 4.36L, Hemoglobin 10.6L, Hematocrit 35.2L , Mean Corpuscular Volume 81, Mean Corpuscular Hemoglobin 24.3L, Mean Corpuscular Hemoglobin Concent 30.1L, Red Cell Distribution Width 14.9H, Platelet Count 201, Mean Platelet Volume 8.8, Neutrophils (%) (Auto) 46.7, Lymphocytes (%) (Auto) 33.8, Monocytes (%) (Auto) 9.7, Eosinophils (%) (Auto) 7.8H, Basophils (%) (Auto) 2.1H, Sodium Level 143, Potassium Level 4.0, Chloride Level 107, Carbon Dioxide Level 30, Anion Gap 6, Blood Urea Nitrogen 27H, Creatinine 1.1, Estimat Glomerular Filtration Rate > 60, Glucose Level 106 , Calcium Level 9.7, Total Bilirubin 0.2, Aspartate Amino Transf (AST/SGOT) 16, Alanine Aminotransferase (ALT/SGPT) 26, Alkaline Phosphatase 111, Total Creatine Kinase 148, Creatine Kinase MB 0.9, Creatine Kinase MB Relative Index 0.6, Troponin I 0.000, Pro-B-Type Natriuretic Peptide 95, Total Protein 8.0, Albumin 3.1L, Globulin 4.9, Albumin/Globulin Ratio 0.6L, Lipase 158 05/13/18 18:15: Arterial Blood pH 7.406, Arterial Blood Partial Pressure CO2 39.5, Arterial Blood Partial Pressure O2 75.3, Arterial Blood HCO3 24.3, Arterial Blood Oxygen Saturation 95.1, Arterial Blood Base Excess -0.3, Travis Test Positive 05/13/18 19:30: Troponin I 0.006, D-Dimer 1.38H, Lactate Dehydrogenase 253H, Angiotensin Converting Enzyme [Pending] 05/14/18 06:05: White Blood Count 8.8, Red Blood Count 4.31L, Hemoglobin 10.6L, Hematocrit 33.7L , Mean Corpuscular Volume 78L, Mean Corpuscular Hemoglobin 24.6L, Mean Corpuscular Hemoglobin Concent 31.5L, Red Cell Distribution Width 14.3, Platelet Count 207, Mean Platelet Volume 8.1, Neutrophils (%) (Auto) 63.4, Lymphocytes (%) (Auto) 25.9, Monocytes (%) (Auto) 10.1H, Eosinophils (%) (Auto) 0.1, Basophils (%) (Auto) 0.5, Sodium Level 142, Potassium Level 4.0, Chloride Level 105, Carbon Dioxide Level 28, Anion Gap 9, Blood Urea Nitrogen 31H, Creatinine 1.2, Estimat Glomerular Filtration Rate > 60, Glucose Level 116H, Calcium Level 9.6, Total Bilirubin 0.2, Aspartate Amino Transf (AST/SGOT) 22, Alanine Aminotransferase (ALT/SGPT) 28, Alkaline Phosphatase 112, Total Creatine Kinase 144, Total Protein 7.9, Albumin 2.9L, Hemoglobin A1c 6.7H, Uric Acid 7.2, Phosphorus Level 4.3, Magnesium Level 1.9, Iron Level 39L, Total Iron Binding Capacity 282, Percent Iron Saturation 14L, Unsaturated Iron Binding 243 , Ferritin 93, Direct Bilirubin < 0.1, Gamma Glutamyl Transpeptidase 24, Triglycerides Level 16L, Cholesterol Level 153, LDL Cholesterol 84, HDL Cholesterol 58, Cholesterol/HDL Ratio 2.6L, Vitamin B12 Level 1787H, Folate 10.7 , Thyroid Stimulating Hormone (TSH) 0.209L 05/14/18 10:00: Urine Color Pale yellow, Urine Appearance Clear, Urine pH 6, Urine Specific [place] 1.005, Urine Protein Negative, Urine Glucose (UA) Negative, Urine Ketones Negative, Urine Blood Negative, Urine Nitrite Negative, Urine Bilirubin Negative, Urine Urobilinogen Normal, Urine Leukocyte Esterase Negative, Urine RBC 0-2H, Urine WBC 0-2, Urine Squamous Epithelial Cells Few, Urine Bacteria Occasional Current Medications Medications (Trade) Dose Ordered Sig/Virgen Route PRN Reason Start Time Stop Time Status Last Admin Dose Admin Acetaminophen/ Hydrocodone Bitart ([place] 10/325) 1 tab Q4H PRN ORAL severe pain 05/14/18 11:03 05/21/18 11:02 Acetaminophen/ Hydrocodone Bitart ([place] 5/325) 1 tab Q4H PRN ORAL MODERATE PAIN 05/14/18 11:04 05/20/18 11:03 Albuterol/ Ipratropium (Albuterol/ Ipratropium) 3 ml Q6HRT HHN 05/13/18 19:00 05/18/18 18:59 05/14/18 07:38 Aspirin (ASA) 81 mg DAILY ORAL 05/14/18 09:00 06/13/18 08:59 05/14/18 08:10 Atorvastatin Calcium (Lipitor) 20 mg BEDTIME ORAL 05/13/18 22:00 06/12/18 21:59 05/13/18 23:17 Azithromycin (Zithromax) 250 mg DAILY ORAL 05/14/18 09:00 05/21/18 08:59 05/14/18 08:11 Furosemide (Lasix) 40 mg BID IV 05/13/18 19:30 06/12/18 19:29 05/14/18 08:11 Heparin Sodium (Porcine) (Heparin 5000 units/ml) 5,000 units Q12HR SUBQ 05/14/18 09:00 06/13/18 08:59 Montelukast Sodium (Singulair) 10 mg QPM ORAL 05/14/18 16:30 06/13/18 16:29 Prednisone (predniSONE) 60 mg DAILY ORAL 05/14/18 09:00 06/13/18 08:59 05/14/18 08:11 Salmeterol Xinafoate/ Fluticasone (Advair 250/50 Diskus) 1 puffs BID INH 05/14/18 09:00 06/13/18 08:59 05/14/18 09:44 Subjective ROS Limited/Unobtainable: No Allergies: Coded Allergies: PENICILLINS (Verified Allergy, Unknown, 08/31/17) TRAMADOL (Verified Allergy, Unknown, 08/31/17) Objective Last 24 Hour Vital Signs Date Time Temp Pulse Resp B/P (MAP) Pulse Ox O2 Delivery O2 Flow Rate FiO2 05/16/18 13:00 72 18 98 Room Air 21 05/16/18 12:00 97.5 64 20 137/66 (89) 100 97.5 05/16/18 09:00 Room Air 05/16/18 08:00 98.6 64 20 127/60 (82) 99 98.6 05/16/18 08:00 66 05/16/18 07:42 69 18 99 Room Air 21 05/16/18 07:33 66 20 96 Room Air 21 05/16/18 04:00 63 05/16/18 04:00 98.0 86 21 136/72 (93) 98 98.0 05/16/18 01:35 65 20 99 Room Air 21 05/16/18 01:25 61 20 97 Room Air 21 05/16/18 00:00 98.0 60 21 132/77 (95) 96 98.0 05/16/18 00:00 65 05/15/18 21:00 Room Air 05/15/18 20:03 75 18 98 Room Air 21 05/15/18 20:00 77 05/15/18 20:00 98.1 71 24 134/68 (90) 99 98.1 05/15/18 19:53 76 18 97 Room Air 21 05/15/18 16:00 70 05/15/18 16:00 97.3 59 24 122/78 (93) 99 97.3 05/15/18 13:19 75 16 100 Room Air 21 05/15/18 13:12 75 16 98 Room Air 21 Intake and Output 05/15/18 05/16/18 19:00 07:00 Intake Total 500 ml 360 ml Output Total 2400 ml 1400 ml Balance -1900 ml -1040 ml Intake Oral 500 ml 360 ml Output Urine Total 2400 ml 1400 ml Laboratory Tests 05/16/18 04:50: White Blood Count 9.6, Red Blood Count 3.96L, Hemoglobin 10.1L, Hematocrit 31.4L , Mean Corpuscular Volume 79L, Mean Corpuscular Hemoglobin 25.5L, Mean Corpuscular Hemoglobin Concent 32.1, Red Cell Distribution Width 14.9H, Platelet Count 181, Mean Platelet Volume 8.7, Neutrophils (%) (Auto) 44.4L, Lymphocytes (%) (Auto) 40.2, Monocytes (%) (Auto) 12.8H, Eosinophils (%) (Auto) 1.7, Basophils (%) (Auto) 0.9, Sodium Level 139, Potassium Level 4.0, Chloride Level 104, Carbon Dioxide Level 31, Anion Gap 4L, Blood Urea Nitrogen 30H, Creatinine 1.2, Estimat Glomerular Filtration Rate > 60, Glucose Level 103, Uric Acid 7.1, Calcium Level 9.0, Phosphorus Level 3.3, Magnesium Level 1.9, Total Bilirubin 0.2, Direct Bilirubin < 0.1, Gamma Glutamyl Transpeptidase 24, Aspartate Amino Transf (AST/SGOT) 15, Alanine Aminotransferase (ALT/SGPT) 29, Alkaline Phosphatase 95, Pro-B-Type Natriuretic Peptide 363H, Total Protein 7.1 , Albumin 2.6L Current Medications Medications (Trade) Dose Ordered Sig/Virgen Route PRN Reason Start Time Stop Time Status Last Admin Dose Admin Acetaminophen/ Hydrocodone Bitart ([place] 10/325) 1 tab Q4H PRN ORAL severe pain 05/14/18 11:03 05/21/18 11:02 05/16/18 10:05 Albuterol/ Ipratropium (Albuterol/ Ipratropium) 3 ml Q6HRT HHN 05/13/18 19:00 05/18/18 18:59 05/16/18 13:00 Aspirin (ASA) 81 mg DAILY ORAL 05/14/18 09:00 06/13/18 08:59 05/16/18 08:10 Atorvastatin Calcium (Lipitor) 20 mg BEDTIME ORAL 05/13/18 22:00 06/12/18 21:59 05/15/18 20:51 Azithromycin (Zithromax) 250 mg DAILY ORAL 05/14/18 09:00 05/21/18 08:59 05/16/18 08:10 Docusate Sodium (Colace) 100 mg TWICE A DAY ORAL 05/14/18 18:00 06/13/18 17:59 05/16/18 08:10 Furosemide (Lasix) 40 mg BID IV 05/13/18 19:30 06/12/18 19:29 05/16/18 08:10 Heparin Sodium (Porcine) (Heparin 5000 units/ml) 5,000 units Q12HR SUBQ 05/14/18 09:00 06/13/18 08:59 Montelukast Sodium (Singulair) 10 mg QPM ORAL 05/14/18 16:30 06/13/18 16:29 05/15/18 15:46 Pantoprazole (Protonix) 40 mg DAILY ORAL 05/14/18 15:00 06/13/18 14:59 05/16/18 08:10 Prednisone (predniSONE) 60 mg DAILY ORAL 05/14/18 09:00 06/13/18 08:59 05/16/18 08:09 Salmeterol Xinafoate/ Fluticasone (Advair 250/50 Diskus) 1 puffs BID INH 05/14/18 09:00 06/13/18 08:59 05/16/18 10:07 Anival Hsieh MD May 16, 2018 13:10
--- NOTE | 2018-05-16 14:36 | Nephrology Progress Note ---
Assessment/Plan Problem List: (1) Nausea & vomiting (2) CHF (congestive heart failure) (3) COPD exacerbation (4) Anemia, iron deficiency Assessment Anemia COPD exac CHF Plan IV iron pulm support 2D echo ej Fx 60% done 10 days ago monitor lytes lower po prednisone change Lasix to po Subjective ROS Limited/Unobtainable: No Constitutional: Reports: malaise, other - coughs Objective Objective Last 24 Hour Vital Signs Date Time Temp Pulse Resp B/P (MAP) Pulse Ox O2 Delivery O2 Flow Rate FiO2 05/16/18 13:12 76 18 99 Room Air 21 05/16/18 13:00 72 18 98 Room Air 21 05/16/18 12:00 97.5 64 20 137/66 (89) 100 97.5 05/16/18 12:00 67 05/16/18 09:00 Room Air 05/16/18 08:00 98.6 64 20 127/60 (82) 99 98.6 05/16/18 08:00 66 05/16/18 07:42 69 18 99 Room Air 21 05/16/18 07:33 66 20 96 Room Air 21 05/16/18 04:00 63 05/16/18 04:00 98.0 86 21 136/72 (93) 98 98.0 05/16/18 01:35 65 20 99 Room Air 21 05/16/18 01:25 61 20 97 Room Air 21 05/16/18 00:00 98.0 60 21 132/77 (95) 96 98.0 05/16/18 00:00 65 05/15/18 21:00 Room Air 05/15/18 20:03 75 18 98 Room Air 21 05/15/18 20:00 77 05/15/18 20:00 98.1 71 24 134/68 (90) 99 98.1 05/15/18 19:53 76 18 97 Room Air 05/15/18 16:00 70 05/15/18 16:00 97.3 59 24 122/78 (93) 99 97.3 Intake and Output 05/15/18 05/16/18 19:00 07:00 Intake Total 500 ml 360 ml Output Total 2400 ml 1400 ml Balance -1900 ml -1040 ml Intake Oral 500 ml 360 ml Output Urine Total 2400 ml 1400 ml Laboratory Tests 05/16/18 04:50: White Blood Count 9.6, Red Blood Count 3.96L, Hemoglobin 10.1L, Hematocrit 31.4L , Mean Corpuscular Volume 79L, Mean Corpuscular Hemoglobin 25.5L, Mean Corpuscular Hemoglobin Concent 32.1, Red Cell Distribution Width 14.9H, Platelet Count 181, Mean Platelet Volume 8.7, Neutrophils (%) (Auto) 44.4L, Lymphocytes (%) (Auto) 40.2, Monocytes (%) (Auto) 12.8H, Eosinophils (%) (Auto) 1.7, Basophils (%) (Auto) 0.9, Sodium Level 139, Potassium Level 4.0, Chloride Level 104, Carbon Dioxide Level 31, Anion Gap 4L, Blood Urea Nitrogen 30H, Creatinine 1.2, Estimat Glomerular Filtration Rate > 60, Glucose Level 103, Uric Acid 7.1, Calcium Level 9.0, Phosphorus Level 3.3, Magnesium Level 1.9, Total Bilirubin 0.2, Direct Bilirubin < 0.1, Gamma Glutamyl Transpeptidase 24, Aspartate Amino Transf (AST/SGOT) 15, Alanine Aminotransferase (ALT/SGPT) 29, Alkaline Phosphatase 95, Pro-B-Type Natriuretic Peptide 363H, Total Protein 7.1 , Albumin 2.6L Height (Feet): 6 Height (Inches): 3.00 Weight (Pounds): 333 General Appearance: no apparent distress Respiratory/Chest: decreased breath sounds Abdomen: soft Extremities: pitting Objective no other change Jerzy Hardwick MD May 16, 2018 14:36
[2018-05-17] MEDS ORDERED: Furosemide 80mg tab ORAL SCH (09:00)
--- NOTE | 2018-05-19 11:21 | Discharge Summary ---
Discharge Summary Discharge Summary _ DATE OF ADMISSION: 05/13/2018 DATE OF DISCHARGE: 05/16/2018 REASON FOR ADMISSION: 62 years old male with past medical history of asthma ,congestive heart failure , hypertension ,presented for difficulty breathing for 2 days. Patient reported being compliant with his medications including diuretic. He reported increased discomfort in both legs and swelling , also reported increasing orthopnea. Patient a on oral inhaler at home, and takes Advair as directed. Upon evaluation patient noted to be tachypneic, but pulse oximetry was stable on room air. Laboratory workup revealed no leukocytosis, hemoglobin 10.6, hematocrit 35.2 . BUN 27 creatinine 1.1. Troponin negative. EKG revealed no acute ischemic changes. D-dimer 1.38. ABG was stable on room air. Chest x-ray revealed no acute cardiopulmonary pathology. CT of the chest, abdomen ,and pelvis revealed no acute thoracic or pulmonary process. Multiply small right lung nodules, previously reported ,appearing unchanged. No acute intra-abdominal pathology. Patient admitted with diagnoses of COPD exacerbation ,CHF CONSULTANTS: fur mixer dr. Hernández pulmonary Dr. Haji ID specialist Dr. Chung GI specialist Dr. Hardwick composition professor/oncologist Dr. Fermin [facility]: Patient admitted to telemetry floor. Supplemental oxygen provided as needed to keep pulse oximetry above 92%; Pulmonary hygiene optimized. Patient started on bronchodilator therapy around the clock and as needed. Patient started on oral steroids with radial tapering, after receiving initial loading dose of IV Solu-Medrol at the emergency department. Patient was on empiric antibiotics. Patient started on diuresis . Volumes and renal parameters were closely monitored. Patient was educated on salt restriction and cardiac rehabilitation. Patient started on compression stockings for chronic lower extremity edema with venostasis. Counseling Case Manager closely followed. Echocardiogram done 10 days ago, and revealed preserved ejection fraction. Patient was recommended by fur mixer to have outpatient stress test. No cardiac catheterization was required at this time. Antiplatelet therapy with Aspirin was continued. Blood pressure was managed with BETHANY inhibitor. Statin was continued. Lipid panel stable. DVT/ GI prophylaxis provided. Household Cook closely followed. Renal parameters and electrolytes were closely monitored. Electrolytes corrected as needed. Nephrotoxics were avoided. Scrubber System Attendant followed for anemia. Hemoglobin and hematocrit were closely monitored with goal to keep hemoglobin above 7. Anemia workup revealed evidence of iron deficiency anemia. Patient was on IV Venofer . No evidence of hemolysis. Elevated d-dimer noted . Venous duplex bilateral lower extremity was negative Normal PT and INR. No evidence of bleeding. DVT prophylaxis provided. Strict aspiration precautions maintained. Sleep study as outpatient was recommended. Supportive care provided. Bowel regimen instituted. Pain management addressed was addressed as needed. Patient was stable fro discharge. FINAL DIAGNOSES: Acute CHF exacerbation with diastolic dysfunction COPD exacerbation Hypertension Hyperlipidemia Iron deficiency anemia Elevated D-dimer Chronic lower extremity edema with venous status Obesity Possible obesity hypoventilation syndrome , possible obstructive sleep apnea Chronic pain syndrome DISCHARGE MEDICATIONS: See Medication Reconciliation list. DISCHARGE INSTRUCTIONS: Patient was discharged home . Follow up with primary care provider in one week. I have been assigned to dictate discharge summary for this account. I was not involved in the patient's management. Nga Mckee NP May 19, 2018 11:21
--- NOTE | 2018-05-19 15:13 | Diagnostic Imaging Report ---
APPROVED REPORT CPT Code: 75503 Present Symptoms Shortness of breath Comments: Technically difficult study due to vessel depth (mid-thigh and calf area). BILATERAL: Imaging reveals a patent deep venous system bilaterally. There is no evidence of thrombus within the femoral, popliteal or tibial segments. The greater saphenous veins are also within normal limits. Doppler indicates normal spontaneous flow within these segments.
== END 2018-05-16 13:30 | disposition home or self-care (01) | DRG 194 ==
LOC: EMR 14:26 → EDBEDREQ 15:43 → 2E 16:13 → EDBEDREQ 18:05
DX: I11.0 Hypertensive heart disease with heart failure (principal); J96.91 Respiratory failure, unspecified with hypoxia; J44.1 Chronic obstructive pulmonary disease with (acute) exacerbation; I50.33 Acute on chronic diastolic (congestive) heart failure; E78.5 Hyperlipidemia, unspecified; D50.9 Iron deficiency anemia, unspecified; I87.8 Other specified disorders of veins; E66.2 Morbid (severe) obesity with alveolar hypoventilation; E66.9 Obesity, unspecified; G89.4 Chronic pain syndrome; Z88.6 Allergy status to analgesic agent; Z88.0 Allergy status to penicillin; Z87.891 Personal history of nicotine dependence
CPT/HCPCS: 36415; 36600; 71045; 71260; 74177; 74230; 80048; 80053; 80061; 80076; 81001; 82164; 82550; 82553; 82607; 82728; 82746; 82803; 82962; 82977; 83036; 83540; 83550; 83615; 83690; 83735; 83880; 84100; 84443; 84484; 84550; 85025; 85379; 85610; 86140; 93005; 93970; 94640; 94664; 96374; 96375; 99285; J7620

== ENCOUNTER 2018-05-28 16:57 | Inpatient (IN) | payer MEDICAID ==
[~2018-05-28] VITALS: Ht 190.5 cm; Wt 186.9 kg
[~2018-05-28 16:57] MED LIST changes: +AZITHROMYCIN500 MG ORAL
[2018-05-28] MEDS ORDERED: Norco 5mg/325mg tab ORAL ONE (17:30)
[2018-05-28] MEDS ORDERED: Albuterol/Ipratropium 3ml neb HHN ONE (17:30)
[2018-05-28] MEDS ORDERED: Solu-MEDROL 125mg Inj IVP ONE (18:00)
[2018-05-28 19:00] VITALS: BP 113/48
[2018-05-28 19:01] LABS: EOSINOPHILS % (AUTO) 7.2 % (0.0-3.0); HEMATOCRIT 32.3 % (42.0-52.0); HEMOGLOBIN 10.3 G/DL (14.2-18.0); LYMPHOCYTES % (AUTO) 33.6 % (20.0-45.0); MEAN CORPUSCULAR VOLUME 83 FL (80-99); MONOCYTES % (AUTO) 13.4 % (1.0-10.0); NEUTROPHILS % (AUTO) 43.8 % (45.0-75.0); PLATELET COUNT 166 K/UL (150-450); RED BLOOD COUNT 3.91 M/UL (4.70-6.10); RED CELL DISTRIBUTION WIDTH 15.5 % (11.6-14.8); WHITE BLOOD COUNT 6.9 K/UL (4.8-10.8)
[2018-05-28 19:37] LABS: ANION GAP 6 mmol/L (5-15); BLOOD UREA NITROGEN 28 mg/dL (7-18); CALCIUM 8.8 MG/DL (8.5-10.1); CARBON DIOXIDE 27 MMOL/L (21-32); CHLORIDE 106 MMOL/L (98-107); POTASSIUM 4.5 MMOL/L (3.5-5.1); SODIUM 139 MMOL/L (136-145)
[2018-05-28 19:42] LABS: ALANINE AMINOTRANSFERASE 26 U/L (12-78); ALBUMIN/GLOBULIN RATIO 0.8 (1.0-2.7); ALKALINE PHOSPHATASE 97 U/L (46-116); ASPARTATE AMINO TRANSFERASE 15 U/L (15-37); BILIRUBIN,TOTAL 0.4 MG/DL (0.2-1.0)
[2018-05-28] MEDS ORDERED: NORCO 5-325 TA1 EACH ORAL (20:03)
[2018-05-28] MEDS ORDERED: PREDNISONE20 MG ORAL (20:03)
[2018-05-28 21:03] VITALS: BP 120/58
[2018-05-28 22:15] VITALS: BP 138/62
--- NOTE | 2018-05-28 22:47 | Emergency Room Report ---
History of Present Illness General Chief Complaint: Pain Source: Patient, Medical Record Present Illness HPI Patient is a 62-year-old male who presented after increased left lower extremity pain and swelling. Patient reports having prior history of congestive heart failure as well as COPD. The patient reports having recent increase in swelling to both lower extremities. He reports having increased pain. He states he recently traveled to [place] from [place].The patient denies any fever. He had similar symptoms in the past. Patient was noted normally taking Lasix 40 mg. The patient also takes inhalers which include Advair as well as albuterol.The patient had gradual worsening of symptoms over the past few days. The patient was having increased difficulty with ambulation. Allergies: Coded Allergies: PENICILLINS (Verified Allergy, Unknown, 08/31/17) TRAMADOL (Verified Allergy, Unknown, 08/31/17) Patient History Past Medical History: see triage record Reviewed Nursing Documentation: PMH: Agreed; PSxH: Agreed Nursing Documentation-PMH Past Medical History: No History, Except For Hx Hypertension: Yes Hx Asthma: Yes Hx Cancer: No Hx Gastrointestinal Problems: No Hx Neurological Problems: No Review of Systems All Other Systems: negative except mentioned in HPI Physical Exam Vital Signs Date Time Temp Pulse Resp B/P (MAP) Pulse Ox O2 Delivery O2 Flow Rate FiO2 05/28/18 17:05 97.9 75 19 119/46 97 Room Air 97.9 05/28/18 17:35 21 General Appearance: alert, GCS 15, obese, Chronically Ill ENT: normal ENT inspection Respiratory: normal inspection, wheezing Cardiovascular #1: normal inspection, regular rate, rhythm, edema - 3 + edema Gastrointestinal: normal inspection, non tender Musculoskeletal: swelling - bilateral lower extremities Neurologic: normal inspection, alert, oriented x3 Psychiatric: normal inspection Skin: normal inspection, normal color Medical Decision Making Diagnostic Impression: Primary Impression: COPD exacerbation Additional Impression: CHF (congestive heart failure) ER Course Patient presented for shortness of breath. Differential included but was not limited to anemia, pneumonia, pneumothorax, myocardial infarction, pericardial effusion, congestive heart failure, acidosis. Because of complexity of patient' s case laboratory testing and imaging studies were ordered.The patient was noted to have evidence of fluid overload. EKG showed normal sinus rhythm without evidence of acute ST or T wave changes. The patient given IV steroids as well as breathing treatments. Patient was given IV Lasix. Dr. Brittney Liu was contacted for inpatient management due to recent admission. Labs Test 05/28/18 18:40 05/29/18 05:35 Troponin I 0.007 ng/mL (0.000-0.056) Pro-B-Type Natriuretic Peptide 30 pg/mL (0-125) White Blood Count 4.5 K/UL (4.8-10.8) Red Blood Count 4.26 M/UL (4.70-6.10) Hemoglobin 10.8 G/DL (14.2-18.0) Hematocrit 34.1 % (42.0-52.0) Mean Corpuscular Volume 80 FL (80-99) Mean Corpuscular Hemoglobin 25.4 PG (27.0-31.0) Mean Corpuscular Hemoglobin Concent 31.8 G/DL (32.0-36.0) Red Cell Distribution Width 15.2 % (11.6-14.8) Platelet Count 178 K/UL (150-450) Mean Platelet Volume 9.2 FL (6.5-10.1) Neutrophils (%) (Auto) 76.0 % (45.0-75.0) Lymphocytes (%) (Auto) 20.5 % (20.0-45.0) Monocytes (%) (Auto) 2.4 % (1.0-10.0) Eosinophils (%) (Auto) 0.1 % (0.0-3.0) Basophils (%) (Auto) 1.0 % (0.0-2.0) Sodium Level 139 MMOL/L (136-145) Potassium Level 4.4 MMOL/L (3.5-5.1) Chloride Level 106 MMOL/L (98-107) Carbon Dioxide Level 26 MMOL/L (21-32) Anion Gap 7 mmol/L (5-15) Blood Urea Nitrogen 26 mg/dL (7-18) Creatinine 1.0 MG/DL (0.55-1.30) Estimat Glomerular Filtration Rate > 60 mL/min (>60) Glucose Level 144 MG/DL (74-106) Calcium Level 8.9 MG/DL (8.5-10.1) Iron Level 39 ug/dL (50-175) Total Iron Binding Capacity 286 ug/dL (250-450) Percent Iron Saturation 14 % (15-50) Unsaturated Iron Binding 247 ug/dL (112-346) Ferritin 122 NG/ML (8-388) Total Bilirubin 0.4 MG/DL (0.2-1.0) Aspartate Amino Transf (AST/SGOT) 14 U/L (15-37) Alanine Aminotransferase (ALT/SGPT) 25 U/L (12-78) Alkaline Phosphatase 101 U/L (46-116) Total Protein 7.4 G/DL (6.4-8.2) Albumin 2.7 G/DL (3.4-5.0) Globulin 4.7 g/dL Albumin/Globulin Ratio 0.6 (1.0-2.7) HIV (1&2) Antibody Rapid Negative (NEGATIVE) EKG Diagnostic Results Rate: normal Rhythm: NSR ST Segments: no acute changes Rhythm Strip Diag. Results EP Interpretation: yes Rhythm: NSR, no PVC's, no ectopy Last Vital Signs Date Time Temp Pulse Resp B/P (MAP) Pulse Ox O2 Delivery O2 Flow Rate FiO2 05/28/18 19:00 98.1 71 22 113/48 95 Room Air 21 98.1 Status: unchanged Disposition: ADMITTED INPATIENT Condition: Stable Referrals: NON PHYSICIAN (PCP) Patient Instructions: Chronic Obstructive Pulmonary Disease Exacerbation Otto Metcalf MD May 28, 2018 22:47
[2018-05-28 23:15] VITALS: BP 140/68
[2018-05-28] MEDS ORDERED: Norco 5mg/325mg tab ORAL PRN (23:30)
[2018-05-29 04:00] VITALS: BP 136/61
[2018-05-29 06:27] LABS: EOSINOPHILS % (AUTO) 0.1 % (0.0-3.0); HEMATOCRIT 34.1 % (42.0-52.0); HEMOGLOBIN 10.8 G/DL (14.2-18.0); LYMPHOCYTES % (AUTO) 20.5 % (20.0-45.0); MEAN CORPUSCULAR VOLUME 80 FL (80-99); MONOCYTES % (AUTO) 2.4 % (1.0-10.0); PLATELET COUNT 178 K/UL (150-450); RED BLOOD COUNT 4.26 M/UL (4.70-6.10); RED CELL DISTRIBUTION WIDTH 15.2 % (11.6-14.8); WHITE BLOOD COUNT 4.5 K/UL (4.8-10.8)
[2018-05-29] MEDS ORDERED: HYDROcodone/Acetamin 10/325 tab ORAL PRN (06:30)
[2018-05-29 06:46] LABS: ALANINE AMINOTRANSFERASE 25 U/L (12-78); ALBUMIN 2.7 G/DL (3.4-5.0); ALBUMIN/GLOBULIN RATIO 0.6 (1.0-2.7); ALKALINE PHOSPHATASE 101 U/L (46-116); ANION GAP 7 mmol/L (5-15); ASPARTATE AMINO TRANSFERASE 14 U/L (15-37); BILIRUBIN,TOTAL 0.4 MG/DL (0.2-1.0); BLOOD UREA NITROGEN 26 mg/dL (7-18); CALCIUM 8.9 MG/DL (8.5-10.1); CARBON DIOXIDE 26 MMOL/L (21-32); CHLORIDE 106 MMOL/L (98-107); POTASSIUM 4.4 MMOL/L (3.5-5.1); SODIUM 139 MMOL/L (136-145)
[2018-05-29] MEDS ORDERED: Norco 5mg/325mg tab ORAL PRN (07:30)
[2018-05-29] MEDS ORDERED: Furosemide 40mg tab ORAL SCH (09:00)
[2018-05-29] MEDS: Azithromycin 250mg tab ORAL SCH (09:03)
[2018-05-29] MEDS: Montelukast 10mg tablet ORAL SCH (09:03)
[2018-05-29] MEDS: Aspirin Baby 81mg ORAL SCH (09:03)
[2018-05-29] MEDS: HYDROcodone/Acetamin 10/325 tab ORAL PRN ×3 (09:04→20:34)
--- NOTE | 2018-05-29 09:09 | General Progress Note ---
Assessment/Plan Assessment/Plan (1) B/L LE pain (2) Edema (3) B/L knee pain (4) B/L Knee OA (5) Morbid obesity Pt to be continued on [place]. D/w Dr. Hurley and he concurred. Subjective Date patient seen: May 29, 2018 Time patient seen: 07:45 - am Allergies: Coded Allergies: PENICILLINS (Verified Allergy, Unknown, 08/31/17) TRAMADOL (Verified Allergy, Unknown, 08/31/17) Subjective REVIEW OF SYSTEMS: Denies rash, fever, chills, sweating, dizziness, drowsiness, blurred vision, sore throat, or change in weight. No shortness of breath or chest pain. No nausea, vomiting, diarrhea, or blood in the stool or urine. No bowel or bladder incontinence. No dysuria. He is complaining of bilateral lower extremity pain. SUBJECTIVE: Patient is a known patient from prior admission. Has been admitted due to CHF. Still has c/o knee pain. Started on [place] 10/325mg PO 1 tab Q4H PRN. Pain is tolerated well no new complaints at this time. Objective Last 24 Hour Vital Signs Date Time Temp Pulse Resp B/P (MAP) Pulse Ox O2 Delivery O2 Flow Rate FiO2 05/29/18 09:04 98.1 05/29/18 04:00 98.1 64 20 136/61 (86) 97 98.1 05/29/18 00:00 75 05/28/18 23:18 Room Air 05/28/18 23:15 97.9 67 18 140/68 (92) 97 97.9 05/28/18 22:15 36.99120 68 18 138/62 100 Room Air 21 208.4 05/28/18 22:15 98.0 68 18 138/62 100 Room Air 98.0 05/28/18 21:03 98.3 78 20 120/58 100 Room Air 21 98.3 05/28/18 19:00 98.1 71 22 113/48 95 Room Air 21 98.1 05/28/18 17:35 21 05/28/18 17:35 90 22 99 Room Air 21 05/28/18 17:35 90 22 Room Air 21 05/28/18 17:05 97.9 75 19 119/46 97 Room Air 97.9 Intake and Output 05/28/18 05/29/18 19:00 07:00 Intake Total 0 ml Output Total 1370 ml Balance 0 ml -1370 ml Intake Oral 0 ml Output Urine Total 1370 ml # Bowel Movements 1 Laboratory Tests 05/28/18 18:40: White Blood Count 6.9, Red Blood Count 3.91L, Hemoglobin 10.3L, Hematocrit 32.3L , Mean Corpuscular Volume 83, Mean Corpuscular Hemoglobin 26.3L, Mean Corpuscular Hemoglobin Concent 31.8L, Red Cell Distribution Width 15.5H, Platelet Count 166, Mean Platelet Volume 8.1, Neutrophils (%) (Auto) 43.8L, Lymphocytes (%) (Auto) 33.6, Monocytes (%) (Auto) 13.4H, Eosinophils (%) (Auto) 7.2H, Basophils (%) (Auto) 2.0, Troponin I 0.007, Pro-B-Type Natriuretic Peptide 30 05/28/18 18:50: Sodium Level 139, Potassium Level 4.5, Chloride Level 106, Carbon Dioxide Level 27, Anion Gap 6, Blood Urea Nitrogen 28H, Creatinine 1.0, Estimat Glomerular Filtration Rate > 60, Glucose Level 100, Calcium Level 8.8, Total Bilirubin 0.4 , Aspartate Amino Transf (AST/SGOT) 15, Alanine Aminotransferase (ALT/SGPT) 26, Alkaline Phosphatase 97, Total Protein 6.8, Albumin 3.0L, Globulin 3.8, Albumin/ Globulin Ratio 0.8L 05/29/18 05:35: White Blood Count 4.5L, Red Blood Count 4.26L, Hemoglobin 10.8L, Hematocrit 34.1L, Mean Corpuscular Volume 80, Mean Corpuscular Hemoglobin 25.4L, Mean Corpuscular Hemoglobin Concent 31.8L, Red Cell Distribution Width 15.2H, Platelet Count 178, Mean Platelet Volume 9.2, Neutrophils (%) (Auto) 76.0H, Lymphocytes (%) (Auto) 20.5, Monocytes (%) (Auto) 2.4, Eosinophils (%) (Auto) 0.1, Basophils (%) (Auto) 1.0, Sodium Level 139, Potassium Level 4.4, Chloride Level 106, Carbon Dioxide Level 26, Anion Gap 7, Blood Urea Nitrogen 26H, Creatinine 1.0, Estimat Glomerular Filtration Rate > 60, Glucose Level 144H, Calcium Level 8.9, Total Bilirubin 0.4, Aspartate Amino Transf (AST/SGOT) 14L, Alanine Aminotransferase (ALT/SGPT) 25, Alkaline Phosphatase 101, Total Protein 7.4, Albumin 2.7L, Globulin 4.7, Albumin/Globulin Ratio 0.6L Height (Feet): 6 Height (Inches): 3.00 Weight (Pounds): 319 Objective GENERAL: Alert, awake, and oriented. LUNGS: Decreased breath sounds bilaterally. HEART: S1 and S2 regular. ABDOMEN: Obese. EXTREMITIES: Severe edema noted in bilateral lower extremities. Leonel Singer May 29, 2018 09:09
[2018-05-29] MEDS: Advair 250/50 Inhaler - 14 dose INH SCH ×2 (09:36→21:00)
--- NOTE | 2018-05-29 09:58 | Consultation ---
History of Present Illness General Date patient seen: May 29, 2018 Time patient seen: 09:53 Chief Complaint: Pain Reason for Consultation: COPD exacerbation Present Illness HPI 62 y/o male w/ hx morbid obesity, HTN, CHF, possible asthma presented with increased lower extremity edema/swelling and shortness of breath with wheezing. Just returned from a trip to [place]. Was swollen over there. He is concerned about CHF and possible need for cardiac cath. Notes wheezing but no fevers. Developed asthma in his 40s. Denies significant smoking other than a pack a week for a year and a half. Getting steroids and lasix. Allergies: Coded Allergies: PENICILLINS (Verified Allergy, Unknown, 08/31/17) TRAMADOL (Verified Allergy, Unknown, 08/31/17) Medication History Scheduled Aspirin* (Aspirin*), 81 MG ORAL DAILY, (Reported) Atorvastatin Calcium* (Lipitor*), 20 MG ORAL BEDTIME, (Reported) Azithromycin (Azithromycin), 250 MG ORAL DAILY, (Reported) Benazepril Hcl* (Benazepril Hcl*), 20 MG ORAL BID, (Reported) Fluticasone/Salmeterol (Advair 250-50 Diskus), 1 PUFF INH EVERY 12 HOURS, ( Reported) Furosemide* (Lasix*), 40 MG ORAL DAILY, (Reported) Montelukast Sodium* (Singulair*), 10 MG ORAL DAILY, (Reported) Prednisone* (Prednisone*), 40 MG ORAL DAILY Scheduled PRN Hydrocodone Bit/Acetaminophen 5-325* ([place] 5-325*), 1 TAB ORAL Q4H PRN for For Pain, (Reported) Hydrocodone Bit/Acetaminophen 5-325* ([place] 5-325*), 1 TAB ORAL Q6H PRN for For Pain Patient History Healthcare decision maker Resuscitation status Advanced Directive on File Past Medical/Surgical History Past Medical/Surgical History: (1) CHF (congestive heart failure) Review of Systems Constitutional: Reports: no symptoms ENT: Reports: no symptoms Respiratory: Reports: cough, shortness of breath, wheezing Cardiovascular: Reports: chest pain Gastrointestinal: Reports: no symptoms Genitourinary: Reports: no symptoms Musculoskeletal: Reports: other - Leg pain and swelling Physical Exam General Appearance: no apparent distress, alert HEENT: normocephalic, atraumatic, anicteric, mucous membranes moist, PERRL Neck: supple, normal inspection Respiratory/Chest: other - Coarse expiratory wheeze bilaterally Cardiovascular/Chest: normal rate, regular rhythm Abdomen: non tender, soft Extremities: moderate edema, pitting Last 24 Hour Vital Signs Date Time Temp Pulse Resp B/P (MAP) Pulse Ox O2 Delivery O2 Flow Rate FiO2 05/29/18 09:04 98.1 05/29/18 04:00 98.1 64 20 136/61 (86) 97 98.1 05/29/18 00:00 75 05/28/18 23:18 Room Air 05/28/18 23:15 97.9 67 18 140/68 (92) 97 97.9 05/28/18 22:15 36.09661 68 18 138/62 100 Room Air 21 208.4 05/28/18 22:15 98.0 68 18 138/62 100 Room Air 98.0 05/28/18 21:03 98.3 78 20 120/58 100 Room Air 21 98.3 05/28/18 19:00 98.1 71 22 113/48 95 Room Air 21 98.1 05/28/18 17:35 21 05/28/18 17:35 90 22 99 Room Air 21 05/28/18 17:35 90 22 Room Air 21 05/28/18 17:05 97.9 75 19 119/46 97 Room Air 97.9 Intake and Output 05/28/18 05/29/18 19:00 07:00 Intake Total 0 ml Output Total 1370 ml Balance 0 ml -1370 ml Intake Oral 0 ml Output Urine Total 1370 ml # Bowel Movements 1 Laboratory Tests Test 05/28/18 18:40 05/28/18 18:50 05/29/18 05:35 White Blood Count 6.9 K/UL (4.8-10.8) 4.5 K/UL (4.8-10.8) L Red Blood Count 3.91 M/UL (4.70-6.10) L 4.26 M/UL (4.70-6.10) L Hemoglobin 10.3 G/DL (14.2-18.0) L 10.8 G/DL (14.2-18.0) L Hematocrit 32.3 % (42.0-52.0) L 34.1 % (42.0-52.0) L Mean Corpuscular Volume 83 FL (80-99) 80 FL (80-99) Mean Corpuscular Hemoglobin 26.3 PG (27.0-31.0) L 25.4 PG (27.0-31.0) L Mean Corpuscular Hemoglobin Concent 31.8 G/DL (32.0-36.0) L 31.8 G/DL (32.0-36.0) L Red Cell Distribution Width 15.5 % (11.6-14.8) H 15.2 % (11.6-14.8) H Platelet Count 166 K/UL (150-450) 178 K/UL (150-450) Mean Platelet Volume 8.1 FL (6.5-10.1) 9.2 FL (6.5-10.1) Neutrophils (%) (Auto) 43.8 % (45.0-75.0) L 76.0 % (45.0-75.0) H Lymphocytes (%) (Auto) 33.6 % (20.0-45.0) 20.5 % (20.0-45.0) Monocytes (%) (Auto) 13.4 % (1.0-10.0) H 2.4 % (1.0-10.0) Eosinophils (%) (Auto) 7.2 % (0.0-3.0) H 0.1 % (0.0-3.0) Basophils (%) (Auto) 2.0 % (0.0-2.0) 1.0 % (0.0-2.0) Troponin I 0.007 ng/mL (0.000-0.056) Pro-B-Type Natriuretic Peptide 30 pg/mL (0-125) Sodium Level 139 MMOL/L (136-145) 139 MMOL/L (136-145) Potassium Level 4.5 MMOL/L (3.5-5.1) 4.4 MMOL/L (3.5-5.1) Chloride Level 106 MMOL/L (98-107) 106 MMOL/L (98-107) Carbon Dioxide Level 27 MMOL/L (21-32) 26 MMOL/L (21-32) Anion Gap 6 mmol/L (5-15) 7 mmol/L (5-15) Blood Urea Nitrogen 28 mg/dL (7-18) H 26 mg/dL (7-18) H Creatinine 1.0 MG/DL (0.55-1.30) 1.0 MG/DL (0.55-1.30) Estimat Glomerular Filtration Rate > 60 mL/min (>60) > 60 mL/min (>60) Glucose Level 100 MG/DL (74-106) 144 MG/DL (74-106) H Calcium Level 8.8 MG/DL (8.5-10.1) 8.9 MG/DL (8.5-10.1) Total Bilirubin 0.4 MG/DL (0.2-1.0) 0.4 MG/DL (0.2-1.0) Aspartate Amino Transf (AST/SGOT) 15 U/L (15-37) 14 U/L (15-37) L Alanine Aminotransferase (ALT/SGPT) 26 U/L (12-78) 25 U/L (12-78) Alkaline Phosphatase 97 U/L (46-116) 101 U/L (46-116) Total Protein 6.8 G/DL (6.4-8.2) 7.4 G/DL (6.4-8.2) Albumin 3.0 G/DL (3.4-5.0) L 2.7 G/DL (3.4-5.0) L Globulin 3.8 g/dL 4.7 g/dL Albumin/Globulin Ratio 0.8 (1.0-2.7) L 0.6 (1.0-2.7) L Microbiology Date/Time Source Procedure Growth Status 05/28/18 21:35 Rectum Received Height (Feet): 6 Height (Inches): 3.00 Weight (Pounds): 319 Medications Current Medications Medications (Trade) Dose Ordered Sig/Virgen Route PRN Reason Start Time Stop Time Status Last Admin Dose Admin Acetaminophen (Tylenol) 650 mg Q4H PRN ORAL Mild Pain/Temp > 100.5 05/28/18 23:00 06/27/18 22:59 Acetaminophen/ Hydrocodone Bitart ([place] 10/325) 1 tab Q4H PRN ORAL For severe pain 05/29/18 06:45 06/05/18 06:44 05/29/18 09:04 Acetaminophen/ Hydrocodone Bitart ([place] 5/325) 1 tab Q4H PRN ORAL For mild to moderate Pain 05/29/18 07:30 06/04/18 23:29 Aspirin (ASA) 81 mg DAILY ORAL 05/29/18 09:00 06/28/18 08:59 05/29/18 09:03 Atorvastatin Calcium (Lipitor) 20 mg BEDTIME ORAL 05/29/18 21:00 06/28/18 20:59 Azithromycin (Zithromax) 250 mg DAILY ORAL 05/29/18 09:00 06/05/18 08:59 05/29/18 09:03 Furosemide (Lasix) 40 mg DAILY ORAL 05/29/18 09:00 06/28/18 08:59 05/29/18 09:03 Montelukast Sodium (Singulair) 10 mg DAILY ORAL 05/29/18 09:00 06/28/18 08:59 05/29/18 09:03 Prednisone (predniSONE) 40 mg DAILY ORAL 05/29/18 09:00 06/28/18 08:59 05/29/18 09:03 Salmeterol Xinafoate/ Fluticasone (Advair 250/50 Diskus) 1 puffs Q12HRT INH 05/29/18 10:00 06/28/18 09:59 05/29/18 09:36 Assessment/Plan Assessment/Plan 62 y/o male w/ hx HTN, CHF, ?asthma with bronchospasm and fluid overload. Assessment: 1. Acute CHF exacerbation 2. Acute bronchospasm, possible asthma w/ acute exacerbation 3. Lower extremity edema and pain 4. HTN Plan: -diuresis -prednisone 40 mg daily for now -nebs -duplex LE -cardiology f/u Dominic Alexis MD May 29, 2018 09:58
--- NOTE | 2018-05-29 11:19 | Consultation ---
Consult Note Consult Note Hematology Consult Date patient seen: May 29, 2018 Chief Complaint: Pain Reason for Consultation: Anemia, leukopenia REQ MD: Brittney Shepard ID 62 y/o male w/ hx morbid obesity, HTN, CHF, possible asthma presented with increased lower extremity edema/swelling and shortness of breath with wheezing. Just returned from a trip to [place]. Was swollen over there. He is concerned about CHF and possible need for cardiac cath. Notes wheezing but no fevers. Developed asthma in his 40s. Denies significant smoking other than a pack a week for a year and a half. Getting steroids and lasix. Admitted in the past and this patient is well known to me. Coded Allergies: PENICILLINS (Verified Allergy, Unknown, 08/31/17) TRAMADOL (Verified Allergy, Unknown, 08/31/17) Medication History Scheduled Aspirin* (Aspirin*), 81 MG ORAL DAILY, (Reported) Atorvastatin Calcium* (Lipitor*), 20 MG ORAL BEDTIME, (Reported) Azithromycin (Azithromycin), 250 MG ORAL DAILY, (Reported) Benazepril Hcl* (Benazepril Hcl*), 20 MG ORAL BID, (Reported) Fluticasone/Salmeterol (Advair 250-50 Diskus), 1 PUFF INH EVERY 12 HOURS, ( Reported) Furosemide* (Lasix*), 40 MG ORAL DAILY, (Reported) Montelukast Sodium* (Singulair*), 10 MG ORAL DAILY, (Reported) Prednisone* (Prednisone*), 40 MG ORAL DAILY Scheduled PRN Hydrocodone Bit/Acetaminophen 5-325* ([place] 5-325*), 1 TAB ORAL Q4H PRN for For Pain, (Reported) Hydrocodone Bit/Acetaminophen 5-325* ([place] 5-325*), 1 TAB ORAL Q6H PRN for For Pain Patient History Healthcare decision maker Resuscitation status Advanced Directive on File Past Medical/Surgical History Past Medical/Surgical History: (1) CHF (congestive heart failure) ROS Review of Systems Constitutional: Reports: no symptoms ENT: Reports: no symptoms Respiratory: Reports: cough, shortness of breath, wheezing++ Cardiovascular: Reports: chest pain Gastrointestinal: Reports: no symptoms Genitourinary: Reports: no symptoms Musculoskeletal: Reports: Leg pain and swelling 1-2+ edema Physical Exam Physical Exam General Appearance: no apparent distress, alert HEENT: normocephalic, atraumatic, anicteric, mucous membranes moist, PERRL Neck: supple, normal inspection Respiratory/Chest: other - Coarse expiratory wheeze bilaterally Cardiovascular/Chest: normal rate, regular rhythm Abdomen: non tender, soft Extremities: moderate edema, pitting Last 24 Hour Vital Signs Date Time Temp Pulse Resp B/P (MAP) Pulse Ox O2 Delivery O2 Flow Rate FiO2 05/29/18 09:04 98.1 05/29/18 04:00 98.1 64 20 136/61 (86) 97 98.1 05/29/18 00:00 75 05/28/18 23:18 Room Air 05/28/18 23:15 97.9 67 18 140/68 (92) 97 97.9 05/28/18 22:15 36.63447 68 18 138/62 100 Room Air 21 208.4 05/28/18 22:15 98.0 68 18 138/62 100 Room Air 98.0 05/28/18 21:03 98.3 78 20 120/58 100 Room Air 21 98.3 05/28/18 19:00 98.1 71 22 113/48 95 Room Air 21 98.1 05/28/18 17:35 21 05/28/18 17:35 90 22 99 Room Air 21 05/28/18 17:35 90 22 Room Air 21 05/28/18 17:05 97.9 75 19 119/46 97 Room Air 97.9 Intake and Output 05/28/18 05/29/18 19:00 07:00 Intake Total 0 ml Output Total 1370 ml Balance 0 ml -1370 ml Intake Oral 0 ml Output Urine Total 1370 ml # Bowel Movements 1 Laboratory Tests Test 05/28/18 18:40 05/28/18 18:50 05/29/18 05:35 White Blood Count 6.9 K/UL (4.8-10.8) 4.5 K/UL (4.8-10.8) L Red Blood Count 3.91 M/UL (4.70-6.10) L 4.26 M/UL (4.70-6.10) L Hemoglobin 10.3 G/DL (14.2-18.0) L 10.8 G/DL (14.2-18.0) L Hematocrit 32.3 % (42.0-52.0) L 34.1 % (42.0-52.0) L Mean Corpuscular Volume 83 FL (80-99) 80 FL (80-99) Mean Corpuscular Hemoglobin 26.3 PG (27.0-31.0) L 25.4 PG (27.0-31.0) L Mean Corpuscular Hemoglobin Concent 31.8 G/DL (32.0-36.0) L 31.8 G/DL (32.0-36.0) L Red Cell Distribution Width 15.5 % (11.6-14.8) H 15.2 % (11.6-14.8) H Platelet Count 166 K/UL (150-450) 178 K/UL (150-450) Mean Platelet Volume 8.1 FL (6.5-10.1) 9.2 FL (6.5-10.1) Neutrophils (%) (Auto) 43.8 % (45.0-75.0) L 76.0 % (45.0-75.0) H Lymphocytes (%) (Auto) 33.6 % (20.0-45.0) 20.5 % (20.0-45.0) Monocytes (%) (Auto) 13.4 % (1.0-10.0) H 2.4 % (1.0-10.0) Eosinophils (%) (Auto) 7.2 % (0.0-3.0) H 0.1 % (0.0-3.0) Basophils (%) (Auto) 2.0 % (0.0-2.0) 1.0 % (0.0-2.0) Troponin I 0.007 ng/mL (0.000-0.056) Pro-B-Type Natriuretic Peptide 30 pg/mL (0-125) Sodium Level 139 MMOL/L (136-145) 139 MMOL/L (136-145) Potassium Level 4.5 MMOL/L (3.5-5.1) 4.4 MMOL/L (3.5-5.1) Chloride Level 106 MMOL/L (98-107) 106 MMOL/L (98-107) Carbon Dioxide Level 27 MMOL/L (21-32) 26 MMOL/L (21-32) Anion Gap 6 mmol/L (5-15) 7 mmol/L (5-15) Blood Urea Nitrogen 28 mg/dL (7-18) H 26 mg/dL (7-18) H Creatinine 1.0 MG/DL (0.55-1.30) 1.0 MG/DL (0.55-1.30) Estimat Glomerular Filtration Rate > 60 mL/min (>60) > 60 mL/min (>60) Glucose Level 100 MG/DL (74-106) 144 MG/DL (74-106) H Calcium Level 8.8 MG/DL (8.5-10.1) 8.9 MG/DL (8.5-10.1) Total Bilirubin 0.4 MG/DL (0.2-1.0) 0.4 MG/DL (0.2-1.0) Aspartate Amino Transf (AST/SGOT) 15 U/L (15-37) 14 U/L (15-37) L Alanine Aminotransferase (ALT/SGPT) 26 U/L (12-78) 25 U/L (12-78) Alkaline Phosphatase 97 U/L (46-116) 101 U/L (46-116) Total Protein 6.8 G/DL (6.4-8.2) 7.4 G/DL (6.4-8.2) Albumin 3.0 G/DL (3.4-5.0) L 2.7 G/DL (3.4-5.0) L Globulin 3.8 g/dL 4.7 g/dL Albumin/Globulin Ratio 0.8 (1.0-2.7) L 0.6 (1.0-2.7) L Microbiology Date/Time Source Procedure Growth Status 05/28/18 21:35 Rectum Received Height (Feet): 6 Height (Inches): 3.00 Weight (Pounds): 319 Medications Current Medications Medications (Trade) Dose Ordered Sig/Virgen Route PRN Reason Start Time Stop Time Status Last Admin Dose Admin Acetaminophen (Tylenol) 650 mg Q4H PRN ORAL Mild Pain/Temp > 100.5 05/28/18 23:00 06/27/18 22:59 Acetaminophen/ Hydrocodone Bitart ([place] ) 1 tab Q4H PRN ORAL For severe pain 05/29/18 06:45 06/05/18 06:44 05/29/18 09:04 Acetaminophen/ Hydrocodone Bitart ([place] 5/325) 1 tab Q4H PRN ORAL For mild to moderate Pain 05/29/18 07:30 06/04/18 23:29 Aspirin (ASA) 81 mg DAILY ORAL 05/29/18 09:00 06/28/18 08:59 05/29/18 09:03 Atorvastatin Calcium (Lipitor) 20 mg BEDTIME ORAL 05/29/18 21:00 06/28/18 20:59 Azithromycin (Zithromax) 250 mg DAILY ORAL 05/29/18 09:00 06/05/18 08:59 05/29/18 09:03 Furosemide (Lasix) 40 mg DAILY ORAL 05/29/18 09:00 06/28/18 08:59 05/29/18 09:03 Montelukast Sodium (Singulair) 10 mg DAILY ORAL 05/29/18 09:00 06/28/18 08:59 05/29/18 09:03 Prednisone (predniSONE) 40 mg DAILY ORAL 05/29/18 09:00 06/28/18 08:59 05/29/18 09:03 Salmeterol Xinafoate/ Fluticasone (Advair 250/50 Diskus) 1 puffs Q12HRT INH 05/29/18 10:00 06/28/18 09:59 05/29/18 09:36 Assessment and Recs: # Anemia of iron deficiency -- anemia panel has been reviewed, hgb goal >7 --> transfuse as needed, hgb goal >8 given cardiac history --> iv iron has been started x 5 days --> no evidence of hemolysis # Leukopenia -- potentially related to meds v hemodilution --> obtain hepatitis panel, hiv --> us of the abdomen has been ordered r/o hsm and cirrhosis as well --> meds reviewed as well # Borderline mediastinal lymphadenopathy, stable or perhaps minimally improved since previous study. Nonspecific as regards etiology. Multiple small right lung nodules, also previously reported, appearing unchanged. --> CT scan q6-12months, will order prn --> will f/u with PCP # CHF (congestive heart failure) exacerbation v asthma exacerbation --> Iv lasix prn --> appreciate cards recs Dr. Hernández # Chronic venostasis to his lower extremities. COPD exacerbation with shortness of breath. --> Steroids. The patient was noted to have chronic venostasis to his lower extremities. --> Patient was given IV Lasix with some improvement in symptoms, also on steriods Greatly appreciate consultation. Kade Fermin MD May 29, 2018 11:19
[2018-05-29 12:10] LABS: % IRON SATURATION 14 % (15-50); IRON 39 ug/dL (50-175); TOTAL IRON BINDING CAPACITY 286 ug/dL (250-450)
[2018-05-29 12:36] LABS: FERRITIN 122 NG/ML (8-388)
[2018-05-29] MEDS ORDERED: LORazepam 1mg tab ORAL PRN (13:45)
--- NOTE | 2018-05-29 13:51 | Diagnostic Imaging Report ---
Indication: Shortness of breath. Asthma Comparison: 05/13/2018 2 views of the chest obtained. Findings: There is some prominence of the pulmonary interstitium, nonspecific in nature. The heart is normal in size. Old left-sided rib fracture noted. Osteopenia noted. No pleural effusion identified. IMPRESSION: Some prominence of the pulmonary interstitium noted nonspecific in nature. Old left rib fracture Osteoporosis
--- NOTE | 2018-05-29 16:49 | Cardiac Electrophysiology PN ---
Subjective Subjective Cardiology consult dictated 1. Congestive heart failure due to diastolic dysfunction EF 65%. 2. Hypertension. Continue Lasix 40 and benazepril 20 mg bid 3. Asthma and Chronic obstructive pulmonary disease on albuterol and Advair. 4. Hyperlipidemia on Lipitor. 5. Morbid obesity. 6. Anemia. Objective Last 24 Hour Vital Signs Date Time Temp Pulse Resp B/P (MAP) Pulse Ox O2 Delivery O2 Flow Rate FiO2 05/29/18 16:02 98.1 05/29/18 15:32 98.1 05/29/18 12:00 55 05/29/18 09:04 98.1 05/29/18 09:00 Room Air 05/29/18 04:00 98.1 64 20 136/61 (86) 97 98.1 05/29/18 00:00 75 05/28/18 23:18 Room Air 05/28/18 23:15 97.9 67 18 140/68 (92) 97 97.9 05/28/18 22:15 36.94007 68 18 138/62 100 Room Air 21 208.4 05/28/18 22:15 98.0 68 18 138/62 100 Room Air 98.0 05/28/18 21:03 98.3 78 20 120/58 100 Room Air 21 98.3 05/28/18 19:00 98.1 71 22 113/48 95 Room Air 21 98.1 05/28/18 17:35 21 05/28/18 17:35 90 22 99 Room Air 21 05/28/18 17:35 90 22 Room Air 21 05/28/18 17:05 97.9 75 19 119/46 97 Room Air 97.9 Intake and Output 05/28/18 05/29/18 19:00 07:00 Intake Total 0 ml Output Total 1370 ml Balance 0 ml -1370 ml Intake Oral 0 ml Output Urine Total 1370 ml # Bowel Movements 1 Laboratory Tests Test 05/28/18 18:40 05/28/18 18:50 05/29/18 05:35 05/29/18 15:15 White Blood Count 6.9 K/UL (4.8-10.8) 4.5 K/UL (4.8-10.8) L Red Blood Count 3.91 M/UL (4.70-6.10) L 4.26 M/UL (4.70-6.10) L Hemoglobin 10.3 G/DL (14.2-18.0) L 10.8 G/DL (14.2-18.0) L Hematocrit 32.3 % (42.0-52.0) L 34.1 % (42.0-52.0) L Mean Corpuscular Volume 83 FL (80-99) 80 FL (80-99) Mean Corpuscular Hemoglobin 26.3 PG (27.0-31.0) L 25.4 PG (27.0-31.0) L Mean Corpuscular Hemoglobin Concent 31.8 G/DL (32.0-36.0) L 31.8 G/DL (32.0-36.0) L Red Cell Distribution Width 15.5 % (11.6-14.8) H 15.2 % (11.6-14.8) H Platelet Count 166 K/UL (150-450) 178 K/UL (150-450) Mean Platelet Volume 8.1 FL (6.5-10.1) 9.2 FL (6.5-10.1) Neutrophils (%) (Auto) 43.8 % (45.0-75.0) L 76.0 % (45.0-75.0) H Lymphocytes (%) (Auto) 33.6 % (20.0-45.0) 20.5 % (20.0-45.0) Monocytes (%) (Auto) 13.4 % (1.0-10.0) H 2.4 % (1.0-10.0) Eosinophils (%) (Auto) 7.2 % (0.0-3.0) H 0.1 % (0.0-3.0) Basophils (%) (Auto) 2.0 % (0.0-2.0) 1.0 % (0.0-2.0) Troponin I 0.007 ng/mL (0.000-0.056) Pro-B-Type Natriuretic Peptide 30 pg/mL (0-125) Sodium Level 139 MMOL/L (136-145) 139 MMOL/L (136-145) Potassium Level 4.5 MMOL/L (3.5-5.1) 4.4 MMOL/L (3.5-5.1) Chloride Level 106 MMOL/L (98-107) 106 MMOL/L (98-107) Carbon Dioxide Level 27 MMOL/L (21-32) 26 MMOL/L (21-32) Anion Gap 6 mmol/L (5-15) 7 mmol/L (5-15) Blood Urea Nitrogen 28 mg/dL (7-18) H 26 mg/dL (7-18) H Creatinine 1.0 MG/DL (0.55-1.30) 1.0 MG/DL (0.55-1.30) Estimat Glomerular Filtration Rate > 60 mL/min (>60) > 60 mL/min (>60) Glucose Level 100 MG/DL (74-106) 144 MG/DL (74-106) H Calcium Level 8.8 MG/DL (8.5-10.1) 8.9 MG/DL (8.5-10.1) Total Bilirubin 0.4 MG/DL (0.2-1.0) 0.4 MG/DL (0.2-1.0) Aspartate Amino Transf (AST/SGOT) 15 U/L (15-37) 14 U/L (15-37) L Alanine Aminotransferase (ALT/SGPT) 26 U/L (12-78) 25 U/L (12-78) Alkaline Phosphatase 97 U/L (46-116) 101 U/L (46-116) Total Protein 6.8 G/DL (6.4-8.2) 7.4 G/DL (6.4-8.2) Albumin 3.0 G/DL (3.4-5.0) L 2.7 G/DL (3.4-5.0) L Globulin 3.8 g/dL 4.7 g/dL Albumin/Globulin Ratio 0.8 (1.0-2.7) L 0.6 (1.0-2.7) L Iron Level 39 ug/dL (50-175) L Total Iron Binding Capacity 286 ug/dL (250-450) Percent Iron Saturation 14 % (15-50) L Unsaturated Iron Binding 247 ug/dL (112-346) Ferritin 122 NG/ML (8-388) Carcinoembryonic Antigen Pending HIV (1&2) Antibody Rapid Negative (NEGATIVE) Hepatitis A IgM Antibody Pending Hepatitis B Surface Antigen Pending Hepatitis B Core IgM Antibody Pending Hepatitis C Antibody Pending Microbiology Date/Time Source Procedure Growth Status 05/28/18 21:35 Rectum Received Prosper Crum MD May 29, 2018 16:49
[2018-05-29 20:00] VITALS: BP 117/58
--- NOTE | 2018-05-29 22:15 | Consultation ---
DATE OF CONSULTATION: 05/29/2018 CONSULTING PHYSICIAN: Prosper rCum M.D. REFERRING PHYSICIAN: Brittney Shepard M.D. REASON FOR CONSULTATION: Hypertension and congestive heart failure. HISTORY OF PRESENT ILLNESS: The patient is a 62-year-old gentleman, who was just recently discharged from the hospital. The patient has history of hypertension, congestive heart failure with diastolic dysfunction, morbid obesity as well as asthma, who presented to the hospital with increasing lower extremity edema as well as wheezing. The patient just returned from a trip to [place], was sailing all over. He was concerned about worsening of his congestive heart failure. The patient was admitted and Cardiology consultation was obtained for further evaluation. REVIEW OF SYSTEMS: Review of systems was negative other than what is mentioned in the history of present illness. PAST MEDICAL HISTORY: As mentioned above. FAMILY HISTORY: Noncontributory. SOCIAL HISTORY: Does not smoke or drink alcohol. MEDICATIONS: Per reconciliation. PHYSICAL EXAMINATION: VITAL SIGNS: Blood pressure is 136/61, pulse 64, respirations 20, and temperature 98.1. HEAD AND NECK: Mild JVD. LUNGS: Bilateral wheezes. CARDIOVASCULAR: Shows regular S1 and S2 with no gallop. ABDOMEN: Soft. EXTREMITIES: 2+ pitting edema. LABORATORY DATA: White count 4.5, hematocrit 10.9, hematocrit 34.1, and platelet count 178,000. Sodium 139, potassium 4.4, BUN 22, and creatinine 1. Glucose 60. ASSESSMENT AND PLAN: 1. Bilateral lower extremity edema. It could be due to congestive heart failure with diastolic dysfunction. His echocardiogram showed ejection fraction around 60%. Continue benazepril and increase Lasix 40 mg IV b.i.d. 2. Hypertension. Continue benazepril and Lasix. 3. Asthma and chronic obstructive pulmonary disease. 4. Hyperlipidemia. 5. Morbid obesity. 6. Anemia. Thank you very much for allowing me to participate in the care of this patient. Please do not hesitate to contact me for any questions regarding my evaluation. Prosper Crum M.D. DR: PAUL JOB#: [id number] CC:
[2018-05-29] MEDS: Albuterol/Ipratropium 3ml neb HHN SCH (23:45)
[2018-05-30] MEDS: HYDROcodone/Acetamin 10/325 tab ORAL PRN ×6 (00:20→21:00)
--- NOTE | 2018-05-30 00:30 | History and Physical Report ---
DATE OF ADMISSION: 05/28/2018 HISTORY OF PRESENT ILLNESS: The patient has recurrent hospitalizations for CHF exacerbation and edema. The patient comes with increased left lower extremity pain and swelling. He has a history of CHF as well as COPD. The patient has been having increased orthopnea and lower extremity edema. The patient was admitted for CHF exacerbation. The patient also has some wheezing at times. PAST MEDICAL HISTORY: Leg edema, congestive heart failure, asthma, hypertension, hyperlipidemia, COPD. ALLERGIES: Penicillin and tramadol. MEDICATIONS: Lipitor, benazepril, Lasix, montelukast. FAMILY HISTORY: Noncontributory. SOCIAL HISTORY: No history of alcohol or illicit drugs. REVIEW OF SYSTEMS: HEENT: Denies headaches. RESPIRATORY: Reports shortness of breath and cough. Some wheezing at times. CARDIOVASCULAR: Does have orthopnea. GASTROINTESTINAL: Denies nausea, vomiting, diarrhea. EXTREMITIES: Reports worsening leg edema. CENTRAL NERVOUS SYSTEM: No change in vision or speech pattern. Feels weak. PHYSICAL EXAMINATION: VITAL SIGNS: Temperature is 98 degrees, blood pressure 122/70. HEENT: PERRLA. NECK: Supple. No lymphadenopathy. CHEST: Bilateral rales. CARDIOVASCULAR: Regular rate and rhythm. GASTROINTESTINAL: Soft, nondistended. Positive bowel sounds. EXTREMITIES: A 3+ pitting edema. NEUROLOGIC: Generalized weakness. LABORATORY AND DIAGNOSTIC DATA: WBC of 6.9, hemoglobin 10.3, platelets 166. Sodium 139, potassium 4.5, BUN of 8, creatinine 1. Troponin is negative. ASSESSMENT AND PLAN: CHF exacerbation and edema. I have asked Dr. Norman, Dr. Hurley, Dr. Hardwick, Dr. Crum, and Dr. Haji to see the patient for the management of above-mentioned diagnoses and treatment and also psychiatric condition as well as for pain control. Brittney Shepard M.D. DR: Catracho JOB#: [id number] CC:
[2018-05-30] MEDS: Albuterol/Ipratropium 3ml neb HHN SCH ×6 (03:19→23:41)
--- NOTE | 2018-05-30 07:40 | General Progress Note ---
Assessment/Plan Assessment/Plan # Anemia of iron deficiency -- anemia panel has been reviewed, hgb goal >7 --> transfuse as needed, hgb goal >8 given cardiac history --> iv iron has been started x 5 days --> no evidence of hemolysis # Leukopenia -- potentially related to meds v hemodilution --> negative hepatitis panel, hiv --> us of the abdomen has been ordered r/o hsm and cirrhosis as well --> meds reviewed as well # Borderline mediastinal lymphadenopathy, stable or perhaps minimally improved since previous study. Nonspecific as regards etiology. Multiple small right lung nodules, also previously reported, appearing unchanged. --> CT scan q6-12months, will order prn --> will f/u with PCP # CHF (congestive heart failure) exacerbation v asthma exacerbation --> Iv lasix prn as per Radames --> appreciate cards recs # Chronic venostasis to his lower extremities. COPD exacerbation with shortness of breath. --> Steroids. The patient was noted to have chronic venostasis to his lower extremities. --> Patient was given IV Lasix with some improvement in symptoms Greatly appreciate consultation. Subjective Constitutional: Denies: no symptoms, chills, diaphoresis, fever, malaise, weakness, other HEENT: Denies: no symptoms, eye pain, blurred vision, tearing, double vision, ear pain, ear discharge, nose pain, nose congestion, throat pain, throat swelling, mouth pain, mouth swelling, other Cardiovascular: Denies: no symptoms, chest pain, edema, irregular heart rate, lightheadedness, palpitations, syncope, other Respiratory: Denies: no symptoms, cough, orthopnea, shortness of breath, SOB with excertion, SOB at rest, sputum, stridor, wheezing, other Gastrointestinal/Abdominal: Denies: no symptoms, abdomen distended, abdominal pain, black stools, tarry stools, blood in stool, constipated, diarrhea, difficulty swallowing, nausea, poor appetite, poor fluid intake, rectal bleeding , vomiting, other Genitourinary: Denies: no symptoms, burning, discharge, frequency, flank pain, hematuria, incontinence, pain, urgency, other Neurologic/Psychiatric: Denies: no symptoms, anxiety, depressed, emotional problems, headache, numbness, paresthesia, pre-existing deficit, seizure, tingling, tremors, weakness, other Endocrine: Denies: no symptoms, excessive sweating, flushing, intolerance to cold, intolerance to heat, increased hunger, increased thirst, increased urine, unexplained weight gain, unexplained weight loss, other Hematologic/Lymphatic: Denies: no symptoms, anemia, easy bleeding, easy bruising, other Allergies: Coded Allergies: PENICILLINS (Verified Allergy, Unknown, 08/31/17) TRAMADOL (Verified Allergy, Unknown, 08/31/17) Subjective no bleeding, labs reviewed Objective Last 24 Hour Vital Signs Date Time Temp Pulse Resp B/P (MAP) Pulse Ox O2 Delivery O2 Flow Rate FiO2 05/30/18 04:00 61 05/30/18 03:29 68 20 99 Room Air 21 05/30/18 03:19 64 18 95 Room Air 21 05/30/18 00:00 64 05/29/18 23:55 65 20 99 Room Air 21 05/29/18 23:45 62 18 97 Room Air 21 05/29/18 21:02 68 20 98 Room Air 21 05/29/18 21:00 Room Air 05/29/18 21:00 66 20 98 Room Air 21 05/29/18 20:00 72 05/29/18 20:00 98.0 64 22 117/58 (77) 98 98.0 05/29/18 16:02 98.1 05/29/18 16:00 68 05/29/18 15:32 98.1 05/29/18 12:00 55 05/29/18 09:04 98.1 05/29/18 09:00 Room Air Intake and Output 05/29/18 05/30/18 19:00 07:00 Intake Total 600 ml Output Total 1000 ml 2350 ml Balance -400 ml -2350 ml Intake Oral 600 ml Output Urine Total 1000 ml 2350 ml Laboratory Tests 05/29/18 15:15: Hepatitis A IgM Antibody Negative, Hepatitis B Surface Antigen Negative, Hepatitis B Core IgM Antibody Negative, Hepatitis C Antibody 0.1 Height (Feet): 6 Height (Inches): 3.00 Weight (Pounds): 319 General Appearance: no apparent distress EENT: TMs normal Neck: normal inspection Cardiovascular: regular rhythm Respiratory/Chest: normal breath sounds Extremities: normal inspection Edema: no edema noted Leg (L), no edema noted Leg (R) Edema: mild edema Neurologic: alert Skin: normal pigmentation Kade Fermin MD May 30, 2018 07:40
[2018-05-30 08:00] VITALS: BP 129/83
[2018-05-30] MEDS: Aspirin Baby 81mg ORAL SCH (08:44)
[2018-05-30] MEDS: Montelukast 10mg tablet ORAL SCH (08:45)
[2018-05-30] MEDS: Azithromycin 250mg tab ORAL SCH (08:45)
[2018-05-30] MEDS: Advair 250/50 Inhaler - 14 dose INH SCH ×2 (08:53→21:17)
--- NOTE | 2018-05-30 09:44 | Pulmonology Progress Note ---
Assessment/Plan Assessment/Plan 62 y/o male w/ hx HTN, CHF, asthma with bronchospasm and fluid overload. Assessment: 1. Acute diastolic CHF exacerbation 2. Acute bronchospasm, possible asthma w/ acute exacerbation 3. Lower extremity edema and pain 4. HTN Plan: -diuresis as tolerated -prednisone 40 mg daily for 5 days steroids (today is day 3) -nebs -duplex LE -cardiology f/u Subjective Interval Events: No acute events. No fevers. Allergies: Coded Allergies: PENICILLINS (Verified Allergy, Unknown, 08/31/17) TRAMADOL (Verified Allergy, Unknown, 08/31/17) Subjective Improved shortness of breath and wheezing. IMproved lower extremity edema. Happy with SCDs. Objective Last 24 Hour Vital Signs Date Time Temp Pulse Resp B/P (MAP) Pulse Ox O2 Delivery O2 Flow Rate FiO2 05/30/18 09:00 Room Air 05/30/18 08:56 77 20 98 Room Air 21 05/30/18 08:54 77 20 98 Room Air 21 05/30/18 08:45 129/83 05/30/18 08:04 74 20 96 Room Air 21 05/30/18 08:00 97.5 69 20 129/83 (98) 98 97.5 05/30/18 08:00 73 05/30/18 07:41 72 20 95 Room Air 21 05/30/18 04:00 61 05/30/18 03:29 68 20 99 Room Air 21 05/30/18 03:19 64 18 95 Room Air 21 05/30/18 00:00 64 05/29/18 23:55 65 20 99 Room Air 21 05/29/18 23:45 62 18 97 Room Air 21 05/29/18 21:02 68 20 98 Room Air 21 05/29/18 21:00 Room Air 05/29/18 21:00 66 20 98 Room Air 21 05/29/18 20:00 72 05/29/18 20:00 98.0 64 22 117/58 (77) 98 98.0 05/29/18 16:02 98.1 05/29/18 16:00 68 05/29/18 15:32 98.1 05/29/18 12:00 55 Intake and Output 05/29/18 05/30/18 19:00 07:00 Intake Total 600 ml Output Total 1000 ml 2350 ml Balance -400 ml -2350 ml Intake Oral 600 ml Output Urine Total 1000 ml 2350 ml HEENT: normocephalic, atraumatic Respiratory/Chest: other - Improved expiratory wheeze Cardiovascular: normal rate, regular rhythm Abdomen: normal bowel sounds, soft, non tender Extremities: other - Improved LE edema Microbiology Date/Time Source Procedure Growth Status 05/28/18 21:35 Rectum Received Laboratory Tests 05/29/18 15:15: Hepatitis A IgM Antibody Negative, Hepatitis B Surface Antigen Negative, Hepatitis B Core IgM Antibody Negative, Hepatitis C Antibody 0.1 Current Medications Medications (Trade) Dose Ordered Sig/Virgen Route PRN Reason Start Time Stop Time Status Last Admin Dose Admin Acetaminophen (Tylenol) 650 mg Q4H PRN ORAL Mild Pain/Temp > 100.5 05/28/18 23:00 06/27/18 22:59 Acetaminophen/ Hydrocodone Bitart ([place] 10/325) 1 tab Q4H PRN ORAL For severe pain 05/29/18 06:45 06/05/18 06:44 05/30/18 08:46 Acetaminophen/ Hydrocodone Bitart ([place] 5/325) 1 tab Q4H PRN ORAL For mild to moderate Pain 05/29/18 07:30 06/04/18 23:29 Albuterol/ Ipratropium (Albuterol/ Ipratropium) 3 ml Q4HRT HHN 05/29/18 23:00 06/03/18 22:59 05/30/18 07:40 Aspirin (ASA) 81 mg DAILY ORAL 05/29/18 09:00 06/28/18 08:59 05/30/18 08:44 Atorvastatin Calcium (Lipitor) 20 mg BEDTIME ORAL 05/29/18 21:00 06/28/18 20:59 05/29/18 20:33 Azithromycin (Zithromax) 250 mg DAILY ORAL 05/29/18 09:00 06/05/18 08:59 05/30/18 08:45 Benazepril HCl (Lotensin) 40 mg DAILY ORAL 05/30/18 09:00 06/29/18 08:59 05/30/18 08:45 Furosemide (Lasix) 40 mg EVERY 12 HOURS IV 05/29/18 21:00 06/28/18 20:59 05/30/18 08:46 Lorazepam (Ativan) 2 mg Q6H PRN ORAL Agitation 05/29/18 13:45 06/05/18 13:44 Montelukast Sodium (Singulair) 10 mg DAILY ORAL 05/29/18 09:00 06/28/18 08:59 05/30/18 08:45 Prednisone (predniSONE) 40 mg DAILY ORAL 05/29/18 09:00 06/28/18 08:59 05/30/18 08:45 Salmeterol Xinafoate/ Fluticasone (Advair 250/50 Diskus) 1 puffs Q12HRT INH 05/29/18 10:00 06/28/18 09:59 05/30/18 08:53 Dominic Alexis MD May 30, 2018 09:44
[2018-05-30 12:00] VITALS: BP 131/70
--- NOTE | 2018-05-30 14:05 | Consultation ---
History of Present Illness General Date patient seen: May 30, 2018 Chief Complaint: Pain Reason for Consultation: COPD exacerbation Present Illness HPI the pt is a 62 yo male who comes with increased left lower extremity pain and swelling. He has a history of CHF as well as COPD. The pt has been agitated and anxious. irritable complained about food and stated that he has been ignored all day. no psychotic/manic sxs. no si/hi Allergies: Coded Allergies: PENICILLINS (Verified Allergy, Unknown, 08/31/17) TRAMADOL (Verified Allergy, Unknown, 08/31/17) Medication History Scheduled Aspirin* (Aspirin*), 81 MG ORAL DAILY, (Reported) Atorvastatin Calcium* (Lipitor*), 20 MG ORAL BEDTIME, (Reported) Azithromycin (Azithromycin), 250 MG ORAL DAILY, (Reported) Benazepril Hcl* (Benazepril Hcl*), 20 MG ORAL BID, (Reported) Fluticasone/Salmeterol (Advair 250-50 Diskus), 1 PUFF INH EVERY 12 HOURS, ( Reported) Furosemide* (Lasix*), 40 MG ORAL DAILY, (Reported) Montelukast Sodium* (Singulair*), 10 MG ORAL DAILY, (Reported) Scheduled PRN Hydrocodone Bit/Acetaminophen 5-325* ([place] 5-325*), 1 TAB ORAL Q4H PRN for For Pain, (Reported) Patient History Limited by: medical condition History Provided By: Patient, Medical Record Healthcare decision maker Resuscitation status Advanced Directive on File Past Medical/Surgical History Past Medical/Surgical History: (1) Nausea & vomiting (2) Anemia, iron deficiency (3) COPD exacerbation (4) CHF (congestive heart failure) Review of Systems Psychiatric: Reports: prior hx, anxiety, depressed feelings, emotional problems Physical Exam General Appearance: no apparent distress, alert, morbidly obese Genitourinary/Rectal: normal prostate exam Neurologic: oriented x 3, responsive, depressed affect Last 24 Hour Vital Signs Date Time Temp Pulse Resp B/P (MAP) Pulse Ox O2 Delivery O2 Flow Rate FiO2 05/30/18 12:00 63 05/30/18 12:00 97.7 59 20 131/70 (90) 94 97.7 05/30/18 11:47 78 20 98 Room Air 21 05/30/18 11:42 77 20 97 Room Air 21 05/30/18 09:00 Room Air 05/30/18 08:56 77 20 98 Room Air 21 05/30/18 08:54 77 20 98 Room Air 21 05/30/18 08:45 129/83 05/30/18 08:04 74 20 96 Room Air 21 05/30/18 08:00 97.5 69 20 129/83 (98) 98 97.5 05/30/18 08:00 73 05/30/18 07:41 72 20 95 Room Air 21 05/30/18 04:00 61 05/30/18 03:29 68 20 99 Room Air 21 05/30/18 03:19 64 18 95 Room Air 21 05/30/18 00:00 64 05/29/18 23:55 65 20 99 Room Air 21 05/29/18 23:45 62 18 97 Room Air 21 05/29/18 21:02 68 20 98 Room Air 21 05/29/18 21:00 Room Air 05/29/18 21:00 66 20 98 Room Air 21 05/29/18 20:00 72 05/29/18 20:00 98.0 64 22 117/58 (77) 98 98.0 05/29/18 16:02 98.1 05/29/18 16:00 68 05/29/18 15:32 98.1 Intake and Output 05/29/18 05/30/18 19:00 07:00 Intake Total 600 ml Output Total 1000 ml 2350 ml Balance -400 ml -2350 ml Intake Oral 600 ml Output Urine Total 1000 ml 2350 ml Laboratory Tests Test 05/29/18 15:15 Hepatitis A IgM Antibody Negative (Negative) Hepatitis B Surface Antigen Negative (Negative) Hepatitis B Core IgM Antibody Negative (Negative) Hepatitis C Antibody 0.1 s/co ratio (0.0-0.9) Height (Feet): 6 Height (Inches): 3.00 Weight (Pounds): 319 Medications Current Medications Medications (Trade) Dose Ordered Sig/Virgen Route PRN Reason Start Time Stop Time Status Last Admin Dose Admin Acetaminophen (Tylenol) 650 mg Q4H PRN ORAL Mild Pain/Temp > 100.5 05/28/18 23:00 06/27/18 22:59 Acetaminophen/ Hydrocodone Bitart ([place] 10) 1 tab Q4H PRN ORAL For severe pain 05/29/18 06:45 06/05/18 06:44 05/30/18 12:51 Acetaminophen/ Hydrocodone Bitart ([place] 5/325) 1 tab Q4H PRN ORAL For mild to moderate Pain 05/29/18 07:30 06/04/18 23:29 Albuterol/ Ipratropium (Albuterol/ Ipratropium) 3 ml Q4HRT HHN 05/29/18 23:00 06/03/18 22:59 05/30/18 11:42 Aspirin (ASA) 81 mg DAILY ORAL 05/29/18 09:00 06/28/18 08:59 05/30/18 08:44 Atorvastatin Calcium (Lipitor) 20 mg BEDTIME ORAL 05/29/18 21:00 06/28/18 20:59 05/29/18 20:33 Azithromycin (Zithromax) 250 mg DAILY ORAL 05/29/18 09:00 06/05/18 08:59 05/30/18 08:45 Benazepril HCl (Lotensin) 40 mg DAILY ORAL 05/30/18 09:00 06/29/18 08:59 05/30/18 08:45 Furosemide (Lasix) 40 mg EVERY 12 HOURS IV 05/29/18 21:00 06/28/18 20:59 05/30/18 08:46 Lorazepam (Ativan) 2 mg Q6H PRN ORAL Agitation 05/29/18 13:45 06/05/18 13:44 Montelukast Sodium (Singulair) 10 mg DAILY ORAL 05/29/18 09:00 06/28/18 08:59 05/30/18 08:45 Mupirocin (Bactroban Oint) 1 applic BID TOPIC 05/30/18 18:00 06/09/18 17:59 Prednisone (predniSONE) 40 mg DAILY ORAL 05/29/18 09:00 06/28/18 08:59 05/30/18 08:45 Salmeterol Xinafoate/ Fluticasone (Advair 250/50 Diskus) 1 puffs Q12HRT INH 05/29/18 10:00 06/28/18 09:59 05/30/18 08:53 Assessment/Plan Status: stable, progressing Assessment/Plan MDD Anxiety morbid obesity ativan prn provided dejah/Alejandro Benites MD May 30, 2018 14:05
--- NOTE | 2018-05-30 14:33 | Cardiac Electrophysiology PN ---
Assessment/Plan Assessment/Plan 1. Congestive heart failure due to diastolic dysfunction EF 65%. 2. Hypertension. Continue Lasix 40 iv bid and benazepril 40 daily 3. Asthma and Chronic obstructive pulmonary disease on albuterol and Advair. 4. Hyperlipidemia on Lipitor. 5. Morbid obesity. 6. Anemia. Subjective Subjective Feeling better with iv Lasix. Objective Last 24 Hour Vital Signs Date Time Temp Pulse Resp B/P (MAP) Pulse Ox O2 Delivery O2 Flow Rate FiO2 05/30/18 12:00 63 05/30/18 12:00 97.7 59 20 131/70 (90) 94 97.7 05/30/18 11:47 78 20 98 Room Air 21 05/30/18 11:42 77 20 97 Room Air 21 05/30/18 09:00 Room Air 05/30/18 08:56 77 20 98 Room Air 21 05/30/18 08:54 77 20 98 Room Air 21 05/30/18 08:45 129/83 05/30/18 08:04 74 20 96 Room Air 21 05/30/18 08:00 97.5 69 20 129/83 (98) 98 97.5 05/30/18 08:00 73 05/30/18 07:41 72 20 95 Room Air 21 05/30/18 04:00 61 05/30/18 03:29 68 20 99 Room Air 21 05/30/18 03:19 64 18 95 Room Air 21 05/30/18 00:00 64 05/29/18 23:55 65 20 99 Room Air 21 05/29/18 23:45 62 18 97 Room Air 21 05/29/18 21:02 68 20 98 Room Air 21 05/29/18 21:00 Room Air 05/29/18 21:00 66 20 98 Room Air 21 05/29/18 20:00 72 05/29/18 20:00 98.0 64 22 117/58 (77) 98 98.0 05/29/18 16:02 98.1 05/29/18 16:00 68 05/29/18 15:32 98.1 Intake and Output 05/29/18 05/30/18 19:00 07:00 Intake Total 600 ml Output Total 1000 ml 2350 ml Balance -400 ml -2350 ml Intake Oral 600 ml Output Urine Total 1000 ml 2350 ml Laboratory Tests Test 05/29/18 15:15 Hepatitis A IgM Antibody Negative (Negative) Hepatitis B Surface Antigen Negative (Negative) Hepatitis B Core IgM Antibody Negative (Negative) Hepatitis C Antibody 0.1 s/co ratio (0.0-0.9) Microbiology Date/Time Source Procedure Growth Status 05/28/18 21:35 Nasal Nares MRSA Culture - Final Staphylococcus Aureus - Mrsa Complete 05/28/18 21:35 Rectum - Preliminary Resulted 05/28/18 21:35 Rectum Received Objective HEAD AND NECK: Mild JVD. LUNGS: Bilateral wheezes. CARDIOVASCULAR: Shows regular S1 and S2 with no gallop. ABDOMEN: Soft. EXTREMITIES: 2+ pitting edema. Prosper Crum MD May 30, 2018 14:33
[2018-05-30 16:00] VITALS: BP 101/43
[2018-05-30 20:00] VITALS: BP 109/47
--- NOTE | 2018-05-30 20:28 | General Progress Note ---
Assessment/Plan Problem List: (1) COPD exacerbation ICD Codes: J44.1 - Chronic obstructive pulmonary disease with (acute) exacerbation SNOMED: 461120414 (2) CHF (congestive heart failure) ICD Codes: I50.9 - Heart failure, unspecified SNOMED: 24391563 (3) Anemia, iron deficiency ICD Codes: D50.9 - Iron deficiency anemia, unspecified SNOMED: 47057468 Status: progressing Assessment/Plan afebrile copd chf edema orthopnea anemia severe edema of legs Subjective ROS Limited/Unobtainable: Yes Respiratory: Reports: no symptoms, shortness of breath Allergies: Coded Allergies: PENICILLINS (Verified Allergy, Unknown, 08/31/17) TRAMADOL (Verified Allergy, Unknown, 08/31/17) Objective Last 24 Hour Vital Signs Date Time Temp Pulse Resp B/P (MAP) Pulse Ox O2 Delivery O2 Flow Rate FiO2 05/30/18 20:13 77 20 99 Room Air 21 05/30/18 20:06 71 20 98 Room Air 21 05/30/18 16:00 73 05/30/18 16:00 98.1 74 20 101/43 (62) 100 98.1 05/30/18 15:29 74 20 98 Room Air 21 05/30/18 15:17 74 20 96 Room Air 21 05/30/18 12:00 63 05/30/18 12:00 97.7 59 20 131/70 (90) 94 97.7 05/30/18 11:47 78 20 98 Room Air 21 05/30/18 11:42 77 20 97 Room Air 21 05/30/18 09:00 Room Air 05/30/18 08:56 77 20 98 Room Air 21 05/30/18 08:54 77 20 98 Room Air 21 05/30/18 08:45 129/83 05/30/18 08:04 74 20 96 Room Air 21 05/30/18 08:00 97.5 69 20 129/83 (98) 98 97.5 05/30/18 08:00 73 05/30/18 07:41 72 20 95 Room Air 21 05/30/18 04:00 61 05/30/18 03:29 68 20 99 Room Air 21 05/30/18 03:19 64 18 95 Room Air 21 05/30/18 00:00 64 05/29/18 23:55 65 20 99 Room Air 21 05/29/18 23:45 62 18 97 Room Air 21 05/29/18 21:02 68 20 98 Room Air 21 05/29/18 21:00 Room Air 05/29/18 21:00 66 20 98 Room Air 21 Intake and Output 05/29/18 05/30/18 19:00 07:00 Intake Total 600 ml Output Total 1000 ml 2350 ml Balance -400 ml -2350 ml Intake Oral 600 ml Output Urine Total 1000 ml 2350 ml Height (Feet): 6 Height (Inches): 3.00 Weight (Pounds): 319 Cardiovascular: normal rate Abdomen: soft Brittney Shepard MD May 30, 2018 20:28
[2018-05-30] MEDS ORDERED: Norco 5mg/325mg tab ORAL PRN (23:30)
[2018-05-31] VITALS: BP 108/50
[2018-05-31] MEDS: HYDROcodone/Acetamin 10/325 tab ORAL PRN ×5 (01:38→17:55)
[2018-05-31] MEDS ORDERED: LORazepam 1mg tab ORAL PRN (01:45)
[2018-05-31] MEDS: Albuterol/Ipratropium 3ml neb HHN SCH ×6 (03:00→23:17)
[2018-05-31 04:00] VITALS: BP 129/61
[2018-05-31 08:00] VITALS: BP 128/66
[2018-05-31] MEDS: Montelukast 10mg tablet ORAL SCH (09:34)
[2018-05-31] MEDS: Aspirin Baby 81mg ORAL SCH (09:36)
[2018-05-31] MEDS: Azithromycin 250mg tab ORAL SCH (09:37)
[2018-05-31] MEDS: Advair 250/50 Inhaler - 14 dose INH SCH ×2 (11:03→23:18)
--- NOTE | 2018-05-31 11:47 | General Progress Note ---
Assessment/Plan Problem List: (1) COPD exacerbation ICD Codes: J44.1 - Chronic obstructive pulmonary disease with (acute) exacerbation SNOMED: 038128141 (2) CHF (congestive heart failure) ICD Codes: I50.9 - Heart failure, unspecified SNOMED: 10955280 (3) Anemia, iron deficiency ICD Codes: D50.9 - Iron deficiency anemia, unspecified SNOMED: 03640199 Status: progressing Assessment/Plan no wheezing chf improving still has severe le edema check lytes severe edema of legs Subjective ROS Limited/Unobtainable: Yes Allergies: Coded Allergies: PENICILLINS (Verified Allergy, Unknown, 08/31/17) TRAMADOL (Verified Allergy, Unknown, 08/31/17) Objective Last 24 Hour Vital Signs Date Time Temp Pulse Resp B/P (MAP) Pulse Ox O2 Delivery O2 Flow Rate FiO2 05/31/18 11:15 74 18 99 Room Air 21 05/31/18 11:05 61 18 97 Room Air 21 05/31/18 11:05 61 18 97 Room Air 21 05/31/18 11:05 61 18 97 Room Air 21 05/31/18 10:09 98.2 05/31/18 09:36 128/66 05/31/18 09:00 Room Air 05/31/18 08:27 82 18 99 Room Air 21 05/31/18 08:21 82 18 97 Room Air 21 05/31/18 05:42 98.2 05/31/18 04:00 98.2 20 129/61 (83) 96 98.2 05/31/18 02:40 79 18 97 Room Air 21 05/31/18 02:40 79 18 97 Room Air 21 05/31/18 01:38 98.1 05/31/18 00:00 98.1 72 18 108/50 (69) 99 98.1 05/30/18 23:48 76 18 100 Room Air 21 05/30/18 23:41 77 18 97 Room Air 21 05/30/18 21:19 74 18 98 Room Air 21 05/30/18 21:17 74 18 97 Room Air 21 05/30/18 21:00 Room Air 05/30/18 20:13 77 20 99 Room Air 21 05/30/18 20:06 71 20 98 Room Air 21 05/30/18 20:00 99.0 75 18 109/47 (67) 96 99.0 05/30/18 16:00 73 05/30/18 16:00 98.1 74 20 101/43 (62) 100 98.1 05/30/18 15:29 74 20 98 Room Air 21 05/30/18 15:17 74 20 96 Room Air 21 05/30/18 12:00 63 05/30/18 12:00 97.7 59 20 131/70 (90) 94 97.7 05/30/18 11:47 78 20 98 Room Air 21 Intake and Output 05/30/18 05/31/18 19:00 07:00 Intake Total 480 ml 1720 ml Output Total 2400 ml 2500 ml Balance -1920 ml -780 ml Intake Oral 480 ml 1720 ml Output Urine Total 2400 ml 2500 ml Height (Feet): 6 Height (Inches): 3.00 Weight (Pounds): 312 Brittney Shepard MD May 31, 2018 11:47
[2018-05-31 12:00] VITALS: BP 132/69
--- NOTE | 2018-05-31 14:15 | General Progress Note ---
Assessment/Plan Status: stable Assessment/Plan # Anemia of iron deficiency -- anemia panel has been reviewed, --> transfuse as needed, hgb goal >8 given cardiac history --> iv iron has been started x 5 days --> no evidence of hemolysis --> Current Hgb at 10.8, stable. # Leukopenia -- potentially related to meds v hemodilution --> hepatitis panel and hiv both negative --> us of the abdomen has been ordered r/o hsm and cirrhosis as well - PENDING --> meds reviewed as well --> WBC currently at 4.5 # Borderline mediastinal lymphadenopathy, stable or perhaps minimally improved since previous study. Nonspecific as regards etiology. Multiple small right lung nodules, also previously reported, appearing unchanged. --> CT scan q6-12months, will order prn --> will f/u with PCP # CHF (congestive heart failure) exacerbation v asthma exacerbation --> Iv lasix prn as per Radames --> appreciate cards recs # Chronic venostasis to his lower extremities. COPD exacerbation with shortness of breath. --> Steroids. The patient was noted to have chronic venostasis to his lower extremities. --> Patient was given IV Lasix with some improvement in symptoms Greatly appreciate consultation. Subjective Date patient seen: May 31, 2018 Hematologic/Lymphatic: Reports: anemia Allergies: Coded Allergies: PENICILLINS (Verified Allergy, Unknown, 08/31/17) TRAMADOL (Verified Allergy, Unknown, 08/31/17) All Systems: reviewed and negative except above Subjective Pt transferred to med surg. Pt awake and agitated. No acute events. Objective Last 24 Hour Vital Signs Date Time Temp Pulse Resp B/P (MAP) Pulse Ox O2 Delivery O2 Flow Rate FiO2 05/31/18 13:49 97.9 05/31/18 12:00 97.9 91 19 132/69 (90) 98 97.9 05/31/18 11:15 74 18 99 Room Air 21 05/31/18 11:05 61 18 97 Room Air 05/31/18 11:05 61 18 97 Room Air 21 05/31/18 11:05 61 18 97 Room Air 21 05/31/18 10:09 98.2 05/31/18 09:36 128/66 05/31/18 09:00 Room Air 05/31/18 08:27 82 18 99 Room Air 21 05/31/18 08:21 82 18 97 Room Air 21 05/31/18 08:00 98.0 94 20 128/66 (86) 96 98.0 05/31/18 05:42 98.2 05/31/18 04:00 98.2 20 129/61 (83) 96 98.2 05/31/18 02:40 79 18 97 Room Air 21 05/31/18 02:40 79 18 97 Room Air 21 05/31/18 01:38 98.1 05/31/18 00:00 98.1 72 18 108/50 (69) 99 98.1 05/30/18 23:48 76 18 100 Room Air 21 05/30/18 23:41 77 18 97 Room Air 21 05/30/18 21:19 74 18 98 Room Air 21 05/30/18 21:17 74 18 97 Room Air 21 05/30/18 21:00 Room Air 05/30/18 20:13 77 20 99 Room Air 21 05/30/18 20:06 71 20 98 Room Air 21 05/30/18 20:00 99.0 75 18 109/47 (67) 96 99.0 05/30/18 16:00 73 05/30/18 16:00 98.1 74 20 101/43 (62) 100 98.1 05/30/18 15:29 74 20 98 Room Air 21 05/30/18 15:17 74 20 96 Room Air 21 Intake and Output 05/30/18 05/31/18 19:00 07:00 Intake Total 480 ml 1720 ml Output Total 2400 ml 2500 ml Balance -1920 ml -780 ml Intake Oral 480 ml 1720 ml Output Urine Total 2400 ml 2500 ml Height (Feet): 6 Height (Inches): 3.00 Weight (Pounds): 312 General Appearance: no apparent distress EENT: PERRL/EOMI Neck: normal alignment Cardiovascular: normal peripheral pulses Respiratory/Chest: no respiratory distress Abdomen: soft Kade Fermin MD May 31, 2018 14:15
[2018-05-31 16:00] VITALS: BP 125/68
--- NOTE | 2018-05-31 16:58 | Pulmonology Progress Note ---
Assessment/Plan Assessment/Plan Assessment: 1. Acute diastolic CHF exacerbation 2. Acute bronchospasm, possible asthma w/ acute exacerbation 3. Lower extremity edema and pain 4. HTN Plan: -diuresis as tolerated -prednisone 40 mg daily for 5 days steroids (today is day 3) -nebs -duplex LE -cardiology f/u -cxr saturday Subjective Constitutional: Reports: no symptoms HEENT: Repors: no symptoms Cardiovascular: Reports: no symptoms Gastrointestinal/Abdominal: Reports: no symptoms Genitourinary: Reports: no symptoms Allergies: Coded Allergies: PENICILLINS (Verified Allergy, Unknown, 08/31/17) TRAMADOL (Verified Allergy, Unknown, 08/31/17) Subjective less sob tolearting po no cp nv or bleeding on RA Objective Last 24 Hour Vital Signs Date Time Temp Pulse Resp B/P (MAP) Pulse Ox O2 Delivery O2 Flow Rate FiO2 05/31/18 14:28 84 18 99 Room Air 21 05/31/18 14:19 97.9 05/31/18 14:18 67 18 98 Room Air 05/31/18 13:49 97.9 05/31/18 12:00 97.9 91 19 132/69 (90) 98 97.9 05/31/18 11:15 74 18 99 Room Air 21 05/31/18 11:05 61 18 97 Room Air 21 05/31/18 11:05 61 18 97 Room Air 21 05/31/18 11:05 61 18 97 Room Air 05/31/18 09:36 128/66 05/31/18 09:00 Room Air 05/31/18 08:27 82 18 99 Room Air 21 05/31/18 08:21 82 18 97 Room Air 21 05/31/18 08:00 98.0 94 20 128/66 (86) 96 98.0 05/31/18 05:42 98.2 05/31/18 04:00 98.2 20 129/61 (83) 96 98.2 05/31/18 02:40 79 18 97 Room Air 21 05/31/18 02:40 79 18 97 Room Air 21 05/31/18 01:38 98.1 05/31/18 00:00 98.1 72 18 108/50 (69) 99 98.1 05/30/18 23:48 76 18 100 Room Air 21 10/12/18 23:41 77 18 97 Room Air 21 05/30/18 21:19 74 18 98 Room Air 21 05/30/18 21:17 74 18 97 Room Air 21 05/30/18 21:00 Room Air 05/30/18 20:13 77 20 99 Room Air 21 05/30/18 20:06 71 20 98 Room Air 21 05/30/18 20:00 99.0 75 18 109/47 (67) 96 99.0 Intake and Output 05/30/18 05/31/18 19:00 07:00 Intake Total 480 ml 1720 ml Output Total 2400 ml 2500 ml Balance -1920 ml -780 ml Intake Oral 480 ml 1720 ml Output Urine Total 2400 ml 2500 ml General Appearance: WD/WN Respiratory/Chest: crackles/rales, rhonchi Cardiovascular: normal rate, regular rhythm, murmur systolic, edema Abdomen: soft, non tender, no organomegaly Extremities: no cyanosis Skin: no rash Neurologic/Psychiatric: alert Microbiology Date/Time Source Procedure Growth Status 05/28/18 21:35 Nasal Nares MRSA Culture - Final Staphylococcus Aureus - Mrsa Complete 05/28/18 21:35 Rectum - Final NO CARBAPENEM-RESISTANT ENTEROBACTERI... Complete 05/28/18 21:35 Rectum VRE Culture - Final NO VANCOMYCIN RESISTANT ENTEROCOCCUS ... Complete Current Medications Medications (Trade) Dose Ordered Sig/Virgen Route PRN Reason Start Time Stop Time Status Last Admin Dose Admin Acetaminophen (Tylenol) 650 mg Q4H PRN ORAL Mild Pain/Temp > 100.5 05/30/18 23:00 06/27/18 22:59 Acetaminophen/ Hydrocodone Bitart ([place] 10/325) 1 tab Q4H PRN ORAL For severe pain 05/30/18 22:45 06/05/18 06:44 05/31/18 13:49 Acetaminophen/ Hydrocodone Bitart ([place] 5/325) 1 tab Q4H PRN ORAL For mild to moderate Pain 05/30/18 23:30 06/04/18 23:29 Albuterol/ Ipratropium (Albuterol/ Ipratropium) 3 ml Q4HRT HHN 05/30/18 23:00 06/03/18 22:59 05/31/18 14:17 Aspirin (ASA) 81 mg DAILY ORAL 05/31/18 09:00 06/28/18 08:59 05/31/18 09:36 Atorvastatin Calcium (Lipitor) 20 mg BEDTIME ORAL 05/31/18 21:00 06/28/18 20:59 Azithromycin (Zithromax) 250 mg DAILY ORAL 05/31/18 09:00 06/05/18 08:59 05/31/18 09:37 Benazepril HCl (Lotensin) 40 mg DAILY ORAL 05/31/18 09:00 06/29/18 08:59 05/31/18 09:36 Furosemide (Lasix) 40 mg EVERY 12 HOURS IV 05/31/18 09:00 06/28/18 20:59 05/31/18 09:34 Lorazepam (Ativan) 2 mg Q6H PRN ORAL Agitation 05/31/18 01:45 06/05/18 13:44 Montelukast Sodium (Singulair) 10 mg DAILY ORAL 05/31/18 09:00 06/28/18 08:59 05/31/18 09:34 Mupirocin (Bactroban Oint) 1 applic BID TOPIC 05/31/18 09:00 06/09/18 17:59 05/31/18 09:55 Prednisone (predniSONE) 40 mg DAILY ORAL 05/31/18 09:00 06/28/18 08:59 05/31/18 09:35 Salmeterol Xinafoate/ Fluticasone (Advair 250/50 Diskus) 1 puffs Q12HRT INH 05/31/18 10:00 06/28/18 09:59 05/31/18 11:03 Denita Hart DO May 31, 2018 16:58
--- NOTE | 2018-05-31 18:35 | Cardiac Electrophysiology PN ---
Assessment/Plan Assessment/Plan 1. Congestive heart failure due to diastolic dysfunction EF 65%. 2. Hypertension. Continue Lasix 40 iv bid and benazepril 40 daily 3. Asthma and Chronic obstructive pulmonary disease on albuterol and Advair. 4. Hyperlipidemia on Lipitor. 5. Morbid obesity. 6. Anemia. JEANETTE RN Subjective Subjective Comfortable in NAD. Diuresing well. Objective Last 24 Hour Vital Signs Date Time Temp Pulse Resp B/P (MAP) Pulse Ox O2 Delivery O2 Flow Rate FiO2 05/31/18 16:00 97.8 92 19 125/68 (87) 98 97.8 05/31/18 14:28 84 18 99 Room Air 21 05/31/18 14:19 97.9 05/31/18 14:18 67 18 98 Room Air 21 05/31/18 13:49 97.9 05/31/18 12:00 97.9 91 19 132/69 (90) 98 97.9 05/31/18 11:15 74 18 99 Room Air 21 05/31/18 11:05 61 18 97 Room Air 21 05/31/18 11:05 61 18 97 Room Air 21 05/31/18 11:05 61 18 97 Room Air 21 05/31/18 09:36 128/66 05/31/18 09:00 Room Air 05/31/18 08:27 82 18 99 Room Air 21 05/31/18 08:21 82 18 97 Room Air 21 05/31/18 08:00 98.0 94 20 128/66 (86) 96 98.0 05/31/18 05:42 98.2 05/31/18 04:00 98.2 20 129/61 (83) 96 98.2 05/31/18 02:40 79 18 97 Room Air 21 05/31/18 02:40 79 18 97 Room Air 21 05/31/18 01:38 98.1 05/31/18 00:00 98.1 72 18 108/50 (69) 99 98.1 05/30/18 23:48 76 18 100 Room Air 21 05/30/18 23:41 77 18 97 Room Air 21 05/30/18 21:19 74 18 98 Room Air 21 05/30/18 21:17 74 18 97 Room Air 21 05/30/18 21:00 Room Air 05/30/18 20:13 77 20 99 Room Air 21 05/30/18 20:06 71 20 98 Room Air 21 05/30/18 20:00 99.0 75 18 109/47 (65) 96 99.0 Intake and Output 05/30/18 05/31/18 19:00 07:00 Intake Total 480 ml 1720 ml Output Total 2400 ml 2500 ml Balance -1920 ml -780 ml Intake Oral 480 ml 1720 ml Output Urine Total 2400 ml 2500 ml Microbiology Date/Time Source Procedure Growth Status 05/28/18 21:35 Nasal Nares MRSA Culture - Final Staphylococcus Aureus - Mrsa Complete 05/28/18 21:35 Rectum - Final NO CARBAPENEM-RESISTANT ENTEROBACTERI... Complete 05/28/18 21:35 Rectum VRE Culture - Final NO VANCOMYCIN RESISTANT ENTEROCOCCUS ... Complete Objective HEAD AND NECK: Mild JVD. LUNGS: Bilateral wheezes. CARDIOVASCULAR: Regular S1 and S2 with no gallop. ABDOMEN: Soft. EXTREMITIES: 2+ pitting edema. Prosper Crum MD May 31, 2018 18:35
[2018-05-31 20:00] VITALS: BP 108/58
--- NOTE | 2018-05-31 23:56 | General Progress Note ---
Subjective Date patient seen: May 31, 2018 Neurologic/Psychiatric: Reports: anxiety, depressed, emotional problems Allergies: Coded Allergies: PENICILLINS (Verified Allergy, Unknown, 08/31/17) TRAMADOL (Verified Allergy, Unknown, 08/31/17) Objective Last 24 Hour Vital Signs Date Time Temp Pulse Resp B/P (MAP) Pulse Ox O2 Delivery O2 Flow Rate FiO2 05/31/18 23:30 55 18 100 Room Air 21 05/31/18 23:20 56 18 99 Room Air 21 05/31/18 23:20 55 20 98 Room Air 21 05/31/18 23:19 55 18 98 Room Air 21 05/31/18 21:00 Room Air 05/31/18 20:00 98.6 70 20 108/58 (75) 100 98.6 05/31/18 19:48 75 18 99 Room Air 21 05/31/18 19:39 65 20 98 Room Air 21 05/31/18 18:25 97.8 05/31/18 16:00 97.8 92 19 125/68 (87) 98 97.8 05/31/18 14:28 84 18 99 Room Air 21 05/31/18 14:18 67 18 98 Room Air 21 05/31/18 13:49 97.9 05/31/18 12:00 97.9 91 19 132/69 (90) 98 97.9 05/31/18 11:15 74 18 99 Room Air 21 05/31/18 11:05 61 18 97 Room Air 21 05/31/18 11:05 61 18 97 Room Air 21 05/31/18 11:05 61 18 97 Room Air 21 05/31/18 09:36 128/66 05/31/18 09:00 Room Air 05/31/18 08:27 82 18 99 Room Air 21 05/31/18 08:21 82 18 97 Room Air 21 05/31/18 08:00 98.0 94 20 128/66 (86) 96 98.0 05/31/18 05:42 98.2 05/31/18 04:00 98.2 20 129/61 (83) 96 98.2 05/31/18 02:40 79 18 97 Room Air 21 05/31/18 02:40 79 18 97 Room Air 21 05/31/18 01:38 98.1 05/31/18 00:00 98.1 72 18 108/50 (69) 99 98.1 Intake and Output 05/30/18 05/31/18 19:00 07:00 Intake Total 480 ml 1720 ml Output Total 2400 ml 2500 ml Balance -1920 ml -780 ml Intake Oral 480 ml 1720 ml Output Urine Total 2400 ml 2500 ml Height (Feet): 6 Height (Inches): 3.00 Weight (Pounds): 312 General Appearance: no apparent distress, alert, morbidly obese Neurologic: oriented x 3, responsive, depressed affect Alejandro Norman MD May 31, 2018 23:56
[2018-06-01] VITALS: BP 126/61
[2018-06-01] MEDS: Albuterol/Ipratropium 3ml neb HHN SCH ×6 (03:04→22:36)
[2018-06-01] MEDS: HYDROcodone/Acetamin 10/325 tab ORAL PRN ×6 (03:13→23:52)
[2018-06-01 04:00] VITALS: BP 128/74
[2018-06-01] MEDS: Aspirin Baby 81mg ORAL SCH (08:46)
[2018-06-01] MEDS: Montelukast 10mg tablet ORAL SCH (08:47)
[2018-06-01] MEDS: Azithromycin 250mg tab ORAL SCH (08:47)
[2018-06-01 09:00] VITALS: BP 115/55
[2018-06-01] MEDS: Advair 250/50 Inhaler - 14 dose INH SCH ×2 (09:48→20:08)
[2018-06-01 12:18] VITALS: BP 111/47
--- NOTE | 2018-06-01 12:18 | Cardiology Report ---
APPROVED REPORT EKG Measurement Heart [id number] Normal sinus rhythm Cannot rule out Anterior infarct, age undetermined Abnormal ECG
--- NOTE | 2018-06-01 15:58 | Pulmonology Progress Note ---
Assessment/Plan Assessment/Plan Assessment: 1. Acute diastolic CHF exacerbation 2. Acute bronchospasm, possible asthma w/ acute exacerbation 3. Lower extremity edema and pain 4. HTN Plan: -diuresis as tolerated -prednisone 40 mg daily for 5 days steroids (today is day 4) -nebs -cardiology f/u -cxr saturday Subjective Constitutional: Reports: no symptoms HEENT: Repors: no symptoms Respiratory: Reports: dry cough, shortness of breath Gastrointestinal/Abdominal: Reports: no symptoms Genitourinary: Reports: no symptoms Neurologic: Reports: no symptoms Psychiatric: Reports: no symptoms Allergies: Coded Allergies: PENICILLINS (Verified Allergy, Unknown, 08/31/17) TRAMADOL (Verified Allergy, Unknown, 08/31/17) Subjective duplex negative for DVt improving less sob tolearting po no cp nv or bleeding on RA no fever oob Objective Last 24 Hour Vital Signs Date Time Temp Pulse Resp B/P (MAP) Pulse Ox O2 Delivery O2 Flow Rate FiO2 06/01/18 15:10 75 22 99 Room Air 06/01/18 15:00 72 21 97 Room Air 06/01/18 12:18 97.2 74 19 111/47 (68) 97.2 06/01/18 12:15 97.2 06/01/18 11:26 97.2 06/01/18 10:52 68 19 100 Room Air 06/01/18 10:41 64 20 96 Room Air 21 06/01/18 09:48 61 18 98 Room Air 21 06/01/18 09:48 61 18 97 Room Air 06/01/18 09:00 Room Air 06/01/18 09:00 97.2 67 18 115/55 (75) 97.2 06/01/18 08:48 115/55 06/01/18 07:23 70 20 100 Room Air 21 06/01/18 07:13 69 18 98 Room Air 21 06/01/18 04:00 97.2 58 20 128/74 (92) 98 97.2 06/01/18 03:14 69 18 99 Room Air 21 06/01/18 03:13 98.0 06/01/18 03:04 66 18 97 Room Air 06/01/18 00:00 98.0 63 20 126/61 (82) 98 98.0 05/31/18 23:30 55 18 100 Room Air 21 05/31/18 23:20 56 18 99 Room Air 21 05/31/18 23:20 55 20 98 Room Air 21 05/31/18 23:19 55 18 98 Room Air 21 05/31/18 21:00 Room Air 05/31/18 20:00 98.6 70 20 108/58 (75) 100 98.6 05/31/18 19:48 75 18 99 Room Air 21 05/31/18 19:39 65 20 98 Room Air 21 05/31/18 16:00 97.8 92 19 125/68 (87) 98 97.8 Intake and Output 05/31/18 06/01/18 19:00 07:00 Intake Total 1200 ml Output Total 1300 ml Balance 1200 ml -1300 ml Intake Oral 1200 ml Output Urine Total 1300 ml # Voids 4 General Appearance: WD/WN Respiratory/Chest: rhonchi - reduced Cardiovascular: normal rate, regular rhythm Abdomen: soft, non tender, no organomegaly Skin: no lesions Neurologic/Psychiatric: alert, oriented x 3 Current Medications Medications (Trade) Dose Ordered Sig/Virgen Route PRN Reason Start Time Stop Time Status Last Admin Dose Admin Acetaminophen (Tylenol) 650 mg Q4H PRN ORAL Mild Pain/Temp > 100.5 05/30/18 23:00 06/27/18 22:59 Acetaminophen/ Hydrocodone Bitart ([place] 10/325) 1 tab Q4H PRN ORAL For severe pain 05/30/18 22:45 06/05/18 06:44 06/01/18 15:39 Acetaminophen/ Hydrocodone Bitart ([place]raw[place] 5/325) 1 tab Q4H PRN ORAL For mild to moderate Pain 05/30/18 23:30 06/04/18 23:29 05/31/18 21:59 Albuterol/ Ipratropium (Albuterol/ Ipratropium) 3 ml Q4HRT HHN 05/30/18 23:00 06/03/18 22:59 06/01/18 15:00 Aspirin (ASA) 81 mg DAILY ORAL 05/31/18 09:00 06/28/18 08:59 06/01/18 08:46 Atorvastatin Calcium (Lipitor) 20 mg BEDTIME ORAL 05/31/18 21:00 06/28/18 20:59 05/31/18 22:00 Azithromycin (Zithromax) 250 mg DAILY ORAL 05/31/18 09:00 06/05/18 08:59 06/01/18 08:47 Benazepril HCl (Lotensin) 40 mg DAILY ORAL 05/31/18 09:00 06/29/18 08:59 05/31/18 09:36 Furosemide (Lasix) 40 mg EVERY 12 HOURS IV 05/31/18 09:00 06/28/18 20:59 06/01/18 08:46 Lorazepam (Ativan) 2 mg Q6H PRN ORAL Agitation 05/31/18 01:45 06/05/18 13:44 Montelukast Sodium (Singulair) 10 mg DAILY ORAL 05/31/18 09:00 06/28/18 08:59 06/01/18 08:47 Mupirocin (Bactroban Oint) 1 applic BID TOPIC 05/31/18 09:00 06/09/18 17:59 06/01/18 08:47 Prednisone (predniSONE) 40 mg DAILY ORAL 05/31/18 09:00 06/28/18 08:59 06/01/18 08:47 Salmeterol Xinafoate/ Fluticasone (Advair 250/50 Diskus) 1 puffs Q12HRT INH 05/31/18 10:00 06/28/18 09:59 06/01/18 09:48 Denita Hart DO Jun 01, 2018 15:58
[2018-06-01 16:00] VITALS: BP 122/59
--- NOTE | 2018-06-01 17:10 | General Progress Note ---
Assessment/Plan Status: stable Assessment/Plan # Anemia of iron deficiency -- anemia panel has been reviewed, --> transfuse as needed, hgb goal >8 given cardiac history --> iv iron has been completed --> no evidence of hemolysis # Leukopenia -- potentially related to meds v hemodilution --> hepatitis panel and hiv are both negative --> us of the abdomen has been ordered r/o hsm and cirrhosis as well - PENDING --> meds reviewed # Borderline mediastinal lymphadenopathy, stable or perhaps minimally improved since previous study. Nonspecific as regards etiology. Multiple small right lung nodules, also previously reported, appearing unchanged. --> CT scan q6-12months, will order prn --> will f/u with PCP # CHF (congestive heart failure) exacerbation v asthma exacerbation --> Iv lasix prn as per Radames --> appreciate cards recs # Chronic venostasis to his lower extremities. COPD exacerbation with shortness of breath. --> Steroids. The patient was noted to have chronic venostasis to his lower extremities. --> Patient was given IV Lasix with some improvement in symptoms Greatly appreciate consultation. Subjective Date patient seen: Jun 01, 2018 Hematologic/Lymphatic: Reports: anemia Allergies: Coded Allergies: PENICILLINS (Verified Allergy, Unknown, 08/31/17) TRAMADOL (Verified Allergy, Unknown, 08/31/17) All Systems: reviewed and negative except above Subjective Pt awake and alert. Seen by RT. No acute events. Objective Last 24 Hour Vital Signs Date Time Temp Pulse Resp B/P (MAP) Pulse Ox O2 Delivery O2 Flow Rate FiO2 06/01/18 16:00 98.4 66 18 122/59 (80) 98.4 06/01/18 15:10 75 22 99 Room Air 21 06/01/18 15:00 72 21 97 Room Air 21 06/01/18 12:18 97.2 74 19 111/47 (68) 97.2 06/01/18 12:15 97.2 06/01/18 11:26 97.2 06/01/18 10:52 68 19 100 Room Air 21 06/01/18 10:41 64 20 96 Room Air 21 06/01/18 09:48 61 18 98 Room Air 21 06/01/18 09:48 61 18 97 Room Air 21 06/01/18 09:00 Room Air 06/01/18 09:00 97.2 67 18 115/55 (75) 97.2 06/01/18 08:48 115/55 06/01/18 07:23 70 20 100 Room Air 21 06/01/18 07:13 69 18 98 Room Air 21 06/01/18 04:00 97.2 58 20 128/74 (92) 98 97.2 06/01/18 03:14 69 18 99 Room Air 21 06/01/18 03:13 98.0 06/01/18 03:04 66 18 97 Room Air 21 06/01/18 00:00 98.0 63 20 126/61 (82) 98 98.0 05/31/18 23:30 55 18 100 Room Air 21 05/31/18 23:20 56 18 99 Room Air 21 05/31/18 23:20 55 20 98 Room Air 21 05/31/18 23:19 55 18 98 Room Air 21 05/31/18 21:00 Room Air 05/31/18 20:00 98.6 70 20 108/58 (75) 100 98.6 05/31/18 19:48 75 18 99 Room Air 21 05/31/18 19:39 65 20 98 Room Air 21 Intake and Output 05/31/18 06/01/18 19:00 07:00 Intake Total 1200 ml Output Total 1300 ml Balance 1200 ml -1300 ml Intake Oral 1200 ml Output Urine Total 1300 ml # Voids 4 Height (Feet): 6 Height (Inches): 3.00 Weight (Pounds): 182 General Appearance: no apparent distress EENT: PERRL/EOMI Neck: normal alignment Cardiovascular: normal peripheral pulses Respiratory/Chest: no respiratory distress Abdomen: soft Kade Fermin MD Jun 01, 2018 17:10
[2018-06-01 20:00] VITALS: BP 117/55
--- NOTE | 2018-06-01 21:08 | General Progress Note ---
Assessment/Plan Problem List: (1) COPD exacerbation ICD Codes: J44.1 - Chronic obstructive pulmonary disease with (acute) exacerbation SNOMED: 173925002 (2) CHF (congestive heart failure) ICD Codes: I50.9 - Heart failure, unspecified SNOMED: 64829128 (3) Anemia, iron deficiency ICD Codes: D50.9 - Iron deficiency anemia, unspecified SNOMED: 23875037 Status: progressing Assessment/Plan copd improving chf still has severe le edema check lytes severe edema of legs Subjective ROS Limited/Unobtainable: Yes Constitutional: Reports: no symptoms Allergies: Coded Allergies: PENICILLINS (Verified Allergy, Unknown, 08/31/17) TRAMADOL (Verified Allergy, Unknown, 08/31/17) Objective Last 24 Hour Vital Signs Date Time Temp Pulse Resp B/P (MAP) Pulse Ox O2 Delivery O2 Flow Rate FiO2 06/01/18 19:59 64 18 99 Room Air 21 06/01/18 19:50 61 20 95 Room Air 21 06/01/18 16:00 98.4 66 18 122/59 (80) 98.4 06/01/18 15:10 75 22 99 Room Air 21 06/01/18 15:00 72 21 97 Room Air 21 06/01/18 12:18 97.2 74 19 111/47 (68) 97.2 06/01/18 12:15 97.2 06/01/18 11:26 97.2 06/01/18 10:52 68 19 100 Room Air 21 06/01/18 10:41 64 20 96 Room Air 21 06/01/18 09:48 61 18 98 Room Air 21 06/01/18 09:48 61 18 97 Room Air 21 06/01/18 09:00 Room Air 06/01/18 09:00 97.2 67 18 115/55 (75) 97.2 06/01/18 08:48 115/55 06/01/18 07:23 70 20 100 Room Air 21 06/01/18 07:13 69 18 98 Room Air 21 06/01/18 04:00 97.2 58 20 128/74 (92) 98 97.2 06/01/18 03:14 69 18 99 Room Air 21 06/01/18 03:13 98.0 06/01/18 03:04 66 18 97 Room Air 21 06/01/18 00:00 98.0 63 20 126/61 (82) 98 98.0 05/31/18 23:30 55 18 100 Room Air 21 05/31/18 23:20 56 18 99 Room Air 21 05/31/18 23:20 55 20 98 Room Air 21 05/31/18 23:19 55 18 98 Room Air 21 Intake and Output 05/31/18 06/01/18 19:00 07:00 Intake Total 1200 ml Output Total 1300 ml Balance 1200 ml -1300 ml Intake Oral 1200 ml Output Urine Total 1300 ml # Voids 4 Height (Feet): 6 Height (Inches): 3.00 Weight (Pounds): 182 Cardiovascular: normal rate Respiratory/Chest: lungs clear Abdomen: soft Brittney Shepard MD Jun 01, 2018 21:08
[2018-06-02] VITALS: BP 116/69
[2018-06-02] MEDS: Albuterol/Ipratropium 3ml neb HHN SCH ×5 (02:25→20:06)
[2018-06-02 04:00] VITALS: BP 118/52
[2018-06-02] MEDS: HYDROcodone/Acetamin 10/325 tab ORAL PRN ×4 (06:35→20:13)
[2018-06-02 07:52] VITALS: BP 132/64
--- NOTE | 2018-06-02 08:12 | General Progress Note ---
Assessment/Plan Assessment/Plan # Anemia of iron deficiency - anemia panel has been reviewed --> transfuse as needed, hgb goal >8 given cardiac history --> iv iron has been completed --> no evidence of hemolysis # Leukopenia -- potentially related to meds v hemodilution --> hepatitis panel and hiv are both negative --> us of the abdomen has been ordered r/o hsm and cirrhosis as well - PENDING --> meds reviewed # Borderline mediastinal lymphadenopathy, stable or perhaps minimally improved since previous study. Nonspecific as regards etiology. Multiple small right lung nodules, also previously reported, appearing unchanged. 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 COPD exacerbation with shortness of breath. --> Steroids. The patient was noted to have chronic venostasis to his lower extremities. --> Patient was given Lasix with some improvement in symptoms # DVT with SCDs Greatly appreciate consultation. Subjective Constitutional: Reports: no symptoms HEENT: Reports: no symptoms Cardiovascular: Reports: no symptoms Respiratory: Reports: no symptoms Gastrointestinal/Abdominal: Reports: poor appetite Genitourinary: Reports: no symptoms Neurologic/Psychiatric: Reports: no symptoms Endocrine: Reports: no symptoms Hematologic/Lymphatic: Reports: anemia Allergies: Coded Allergies: PENICILLINS (Verified Allergy, Unknown, 08/31/17) TRAMADOL (Verified Allergy, Unknown, 08/31/17) Subjective Pt awake and alert. SOB and leg edema MUCH better. No acute events. Objective Last 24 Hour Vital Signs Date Time Temp Pulse Resp B/P (MAP) Pulse Ox O2 Delivery O2 Flow Rate FiO2 06/02/18 07:52 97.4 54 18 132/64 (86) 99 97.4 06/02/18 07:51 Room Air 06/02/18 04:00 97.4 60 18 118/52 (74) 99 97.4 06/02/18 02:25 Room Air 21 06/02/18 02:25 Room Air 21 06/02/18 00:00 97.4 60 18 116/69 (85) 97 97.4 06/01/18 22:47 56 16 99 Room Air 21 06/01/18 22:37 80 18 96 Room Air 21 06/01/18 21:00 Room Air 06/01/18 20:00 98.1 64 20 117/55 (75) 96 98.1 06/01/18 19:59 64 18 99 Room Air 21 06/01/18 19:50 61 20 95 Room Air 21 06/01/18 19:50 61 16 95 Room Air 21 06/01/18 19:50 61 16 95 Room Air 21 06/01/18 16:00 98.4 66 18 122/59 (80) 98.4 06/01/18 15:10 75 22 99 Room Air 21 06/01/18 15:00 72 21 97 Room Air 21 06/01/18 12:18 97.2 74 19 111/47 (68) 97.2 06/01/18 12:15 97.2 06/01/18 11:26 97.2 06/01/18 10:52 68 19 100 Room Air 21 06/01/18 10:41 64 20 96 Room Air 21 06/01/18 09:48 61 18 98 Room Air 21 06/01/18 09:48 61 18 97 Room Air 21 06/01/18 09:00 Room Air 06/01/18 09:00 97.2 67 18 115/55 (75) 97.2 06/01/18 08:48 115/55 Intake and Output 06/01/18 06/02/18 19:00 07:00 Intake Total 920 ml 2000 ml Output Total 2000 ml 2900 ml Balance -1080 ml -900 ml Intake Oral 2000 ml Other 920 ml Output Urine Total 2000 ml 2900 ml # Voids 4 Height (Feet): 6 Height (Inches): 3.00 Weight (Pounds): 182 General Appearance: no apparent distress EENT: normal ENT inspection Neck: normal alignment Cardiovascular: normal peripheral pulses Abdomen: soft Extremities: non-tender Edema: 2+ Leg (L), 2+ Leg (R) Edema: mild edema Neurologic: alert Kade Fermin MD Jun 02, 2018 08:12
[2018-06-02] MEDS: Aspirin Baby 81mg ORAL SCH (08:35)
[2018-06-02] MEDS: Montelukast 10mg tablet ORAL SCH (08:35)
[2018-06-02] MEDS: Azithromycin 250mg tab ORAL SCH (08:35)
[2018-06-02] MEDS: Advair 250/50 Inhaler - 14 dose INH SCH ×2 (09:50→20:07)
--- NOTE | 2018-06-02 10:32 | Cardiology Progress Note ---
Assessment/Plan Status: doing well Assessment/Plan Assessment/Plan Assessment/Plan 1. Congestive heart failure due to diastolic dysfunction EF 65%. 2. Hypertension. Continue Lasix 40 iv bid and benazepril 40 daily 3. Asthma and Chronic obstructive pulmonary disease on albuterol and Advair. 4. Hyperlipidemia on Lipitor. 5. Morbid obesity. 6. Anemia. Subjective Cardiovascular: Reports: no symptoms Respiratory: Reports: no symptoms Gastrointestinal/Abdominal: Reports: no symptoms Genitourinary: Reports: no symptoms Subjective [employer] No acute events, no CP/SOB, leg edema presents, vitals stable. Objective Last 24 Hour Vital Signs Date Time Temp Pulse Resp B/P (MAP) Pulse Ox O2 Delivery O2 Flow Rate FiO2 06/02/18 08:35 132/64 06/02/18 08:05 21 06/02/18 08:05 75 16 95 Room Air 21 06/02/18 07:52 97.4 54 18 132/64 (86) 99 97.4 06/02/18 07:51 Room Air 06/02/18 07:05 97.4 06/02/18 04:00 97.4 60 18 118/52 (74) 99 97.4 06/02/18 02:25 Room Air 21 06/02/18 02:25 Room Air 21 06/02/18 00:00 97.4 60 18 116/69 (85) 97 97.4 06/01/18 22:47 56 16 99 Room Air 21 06/01/18 22:37 80 18 96 Room Air 21 06/01/18 21:00 Room Air 06/01/18 20:00 98.1 64 20 117/55 (75) 96 98.1 06/01/18 19:59 64 18 99 Room Air 21 06/01/18 19:50 61 20 95 Room Air 21 06/01/18 19:50 61 16 95 Room Air 21 06/01/18 19:50 61 16 95 Room Air 21 06/01/18 16:00 98.4 66 18 122/59 (80) 98.4 06/01/18 15:10 75 22 99 Room Air 21 06/01/18 15:00 72 21 97 Room Air 21 06/01/18 12:18 97.2 74 19 111/47 (68) 97.2 06/01/18 11:26 97.2 06/01/18 10:52 68 19 100 Room Air 21 06/01/18 10:41 64 20 96 Room Air 21 General Appearance: no apparent distress, alert EENT: PERRL/EOMI, normal ENT inspection, TMs normal Neck: non-tender, normal alignment, supple, normal inspection Rhythm: NSR Cardiovascular: normal peripheral pulses, normal rate, regular rhythm Respiratory/Chest: chest wall non-tender, lungs clear, normal breath sounds Abdomen: normal bowel sounds, non tender Extremities: normal range of motion, non-tender 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
--- NOTE | 2018-06-02 11:26 | Diagnostic Imaging Report ---
Indication: Cough Comparison: 05/29/2018 A single view chest radiograph was obtained. Findings: Cardiomediastinal appearance is within normal limits for age. The lungs are clear. Pulmonary vascularity is appropriate. The diaphragmatic contour is smooth and costophrenic angles are sharp. No pleural effusions are identified. The bones are unremarkable. Impression: No acute findings
[2018-06-02 12:00] VITALS: BP 101/53
--- NOTE | 2018-06-02 13:57 | Pulmonology Progress Note ---
Assessment/Plan Problems: (1) CHF (congestive heart failure) (2) COPD exacerbation (3) Anemia, iron deficiency (4) Nausea & vomiting Assessment/Plan Assessment: 1. Acute diastolic CHF exacerbation 2. Acute bronchospasm, possible asthma w/ acute exacerbation 3. Lower extremity edema and pain 4. HTN Plan: -diuresis as tolerated -prednisone 40 mg (D5/5) -nebs -cardiology f/u Subjective Allergies: Coded Allergies: PENICILLINS (Verified Allergy, Unknown, 08/31/17) TRAMADOL (Verified Allergy, Unknown, 08/31/17) Subjective -1.9, AFVSS, stale on RA, + cough, + SOB, no wheezing, no CP, no F/C, + edema Objective Last 24 Hour Vital Signs Date Time Temp Pulse Resp B/P (MAP) Pulse Ox O2 Delivery O2 Flow Rate FiO2 06/02/18 12:00 98.1 52 18 101/53 (69) 98.1 06/02/18 11:28 73 16 99 Room Air 21 06/02/18 11:18 21 06/02/18 11:18 77 16 95 Room Air 21 06/02/18 11:00 97.4 06/02/18 10:30 97.4 06/02/18 09:55 65 16 95 Room Air 21 06/02/18 09:55 65 16 95 Room Air 21 06/02/18 08:35 132/64 06/02/18 08:05 21 06/02/18 08:05 75 16 95 Room Air 21 06/02/18 07:52 97.4 54 18 132/64 (86) 99 97.4 06/02/18 07:51 Room Air 06/02/18 04:00 97.4 60 18 118/52 (74) 99 97.4 06/02/18 02:25 Room Air 21 06/02/18 02:25 Room Air 21 06/02/18 00:00 97.4 60 18 116/69 (85) 97 97.4 06/01/18 22:47 56 16 99 Room Air 21 06/01/18 22:37 80 18 96 Room Air 21 06/01/18 21:00 Room Air 06/01/18 20:00 98.1 64 20 117/55 (75) 96 98.1 06/01/18 19:59 64 18 99 Room Air 21 06/01/18 19:50 61 20 95 Room Air 21 06/01/18 19:50 61 16 95 Room Air 21 06/01/18 19:50 61 16 95 Room Air 21 06/01/18 16:00 98.4 66 18 122/59 (80) 98.4 06/01/18 15:10 75 22 99 Room Air 21 06/01/18 15:00 72 21 97 Room Air 21 Intake and Output 06/01/18 06/02/18 19:00 07:00 Intake Total 920 ml 2000 ml Output Total 2000 ml 2900 ml Balance -1080 ml -900 ml Intake Oral 2000 ml Other 920 ml Output Urine Total 2000 ml 2900 ml # Voids 4 General Appearance: WD/WN, no acute distress HEENT: normocephalic, atraumatic, anicteric, mucous membranes moist Respiratory/Chest: chest wall non-tender, lungs clear, normal breath sounds - but decreased @ bases Cardiovascular: normal peripheral pulses, normal rate, regular rhythm Abdomen: normal bowel sounds, soft, non tender, no organomegaly, non distended Extremities: no cyanosis, no clubbing, other - 2+ NELLIE Current Medications Medications (Trade) Dose Ordered Sig/Virgen Route PRN Reason Start Time Stop Time Status Last Admin Dose Admin Acetaminophen (Tylenol) 650 mg Q4H PRN ORAL Mild Pain/Temp > 100.5 05/30/18 23:00 06/27/18 22:59 Acetaminophen/ Hydrocodone Bitart ([place] 10/325) 1 tab Q4H PRN ORAL For severe pain 05/30/18 22:45 06/05/18 06:44 06/02/18 10:30 Acetaminophen/ Hydrocodone Bitart ([place] 5/325) 1 tab Q4H PRN ORAL For mild to moderate Pain 05/30/18 23:30 06/04/18 23:29 05/31/18 21:59 Albuterol/ Ipratropium (Albuterol/ Ipratropium) 3 ml Q4HRT HHN 05/30/18 23:00 06/03/18 22:59 06/02/18 11:22 Aspirin (ASA) 81 mg DAILY ORAL 05/31/18 09:00 06/28/18 08:59 06/02/18 08:35 Atorvastatin Calcium (Lipitor) 20 mg BEDTIME ORAL 05/31/18 21:00 06/28/18 20:59 06/01/18 20:55 Azithromycin (Zithromax) 250 mg DAILY ORAL 05/31/18 09:00 06/05/18 08:59 06/02/18 08:35 Benazepril HCl (Lotensin) 40 mg DAILY ORAL 05/31/18 09:00 06/29/18 08:59 06/02/18 08:35 Furosemide (Lasix) 40 mg EVERY 12 HOURS IV 05/31/18 09:00 06/28/18 20:59 06/02/18 08:35 Lorazepam (Ativan) 2 mg Q6H PRN ORAL Agitation 05/31/18 01:45 06/05/18 13:44 Montelukast Sodium (Singulair) 10 mg DAILY ORAL 05/31/18 09:00 06/28/18 08:59 06/02/18 08:35 Mupirocin (Bactroban Oint) 1 applic BID TOPIC 05/31/18 09:00 06/09/18 17:59 06/02/18 08:43 Prednisone (predniSONE) 40 mg DAILY ORAL 05/31/18 09:00 06/28/18 08:59 06/01/18 08:47 Salmeterol Xinafoate/ Fluticasone (Advair 250/50 Diskus) 1 puffs Q12HRT INH 05/31/18 10:00 06/28/18 09:59 06/02/18 09:50 Rashad Haji MD Jun 02, 2018 13:57
--- NOTE | 2018-06-02 16:02 | Diagnostic Imaging Report ---
Indication:Abdominal pain Technique: Grayscale and duplex Doppler imaging of the abdomen performed. Comparison: None Findings: The liver is unremarkable. The gallbladder is noted. The demonstrated part of the pancreas, aorta and IVC show no abnormalities. Both kidneys appear unremarkable. The spleen is normal in size. There is no biliary ductal dilatation identified. Doppler evaluation of the main portal vein shows patency. There is no ascites. No hydronephrosis seen. CBD is 5.7 mm Impression: No acute findings.
[2018-06-02 16:34] VITALS: BP 141/59
[2018-06-02 20:00] VITALS: BP 119/54
--- NOTE | 2018-06-02 20:48 | General Progress Note ---
Assessment/Plan Problem List: (1) COPD exacerbation ICD Codes: J44.1 - Chronic obstructive pulmonary disease with (acute) exacerbation SNOMED: 328911258 (2) CHF (congestive heart failure) ICD Codes: I50.9 - Heart failure, unspecified SNOMED: 35794997 (3) Anemia, iron deficiency ICD Codes: D50.9 - Iron deficiency anemia, unspecified SNOMED: 35227315 Status: progressing Assessment/Plan dc in am chf still has severe le edema check lytes severe edema of legs Subjective ROS Limited/Unobtainable: Yes Constitutional: Reports: no symptoms Allergies: Coded Allergies: PENICILLINS (Verified Allergy, Unknown, 08/31/17) TRAMADOL (Verified Allergy, Unknown, 08/31/17) Objective Last 24 Hour Vital Signs Date Time Temp Pulse Resp B/P (MAP) Pulse Ox O2 Delivery O2 Flow Rate FiO2 06/02/18 20:09 66 16 99 Room Air 21 06/02/18 20:09 66 16 99 Room Air 21 06/02/18 19:59 66 16 99 Room Air 21 06/02/18 19:50 69 18 98 Room Air 21 06/02/18 19:50 21 06/02/18 16:40 97.4 06/02/18 16:34 97.4 66 18 141/59 (86) 99 97.4 06/02/18 16:10 98.1 06/02/18 15:25 81 16 99 Room Air 21 06/02/18 15:15 83 16 94 Room Air 21 06/02/18 15:15 21 06/02/18 12:00 98.1 52 18 101/53 (69) 98.1 06/02/18 11:28 73 16 99 Room Air 21 06/02/18 11:18 21 06/02/18 11:18 77 16 95 Room Air 21 06/02/18 10:30 97.4 06/02/18 09:55 65 16 95 Room Air 21 06/02/18 09:55 65 16 95 Room Air 21 06/02/18 08:35 132/64 06/02/18 08:05 21 06/02/18 08:05 75 16 95 Room Air 21 06/02/18 07:52 97.4 54 18 132/64 (86) 99 97.4 06/02/18 07:51 Room Air 06/02/18 04:00 97.4 60 18 118/52 (74) 99 97.4 06/02/18 02:25 Room Air 21 06/02/18 02:25 Room Air 21 06/02/18 00:00 97.4 60 18 116/69 (85) 97 97.4 06/01/18 22:47 56 16 99 Room Air 21 06/01/18 22:37 80 18 96 Room Air 21 06/01/18 21:00 Room Air Intake and Output 06/01/18 06/02/18 19:00 07:00 Intake Total 920 ml 2000 ml Output Total 2000 ml 2900 ml Balance -1080 ml -900 ml Intake Oral 2000 ml Other 920 ml Output Urine Total 2000 ml 2900 ml # Voids 4 Height (Feet): 6 Height (Inches): 3.00 Weight (Pounds): 182 Neck: supple Cardiovascular: normal rate Brittney Shepard MD Jun 02, 2018 20:48
--- NOTE | 2018-06-02 23:04 | General Progress Note ---
Assessment/Plan Status: stable, progressing Assessment/Plan anxiety d/o depression provided ro/st Subjective Neurologic/Psychiatric: Reports: anxiety, depressed, emotional problems Allergies: Coded Allergies: PENICILLINS (Verified Allergy, Unknown, 08/31/17) TRAMADOL (Verified Allergy, Unknown, 08/31/17) Objective Last 24 Hour Vital Signs Date Time Temp Pulse Resp B/P (MAP) Pulse Ox O2 Delivery O2 Flow Rate FiO2 06/02/18 21:00 Room Air 06/02/18 20:09 66 16 99 Room Air 21 06/02/18 20:09 66 16 99 Room Air 21 06/02/18 20:00 97.8 65 18 119/54 (75) 98 97.8 06/02/18 19:59 66 16 99 Room Air 21 06/02/18 19:50 69 18 98 Room Air 21 06/02/18 19:50 21 06/02/18 16:40 97.4 06/02/18 16:34 97.4 66 18 141/59 (86) 99 97.4 06/02/18 16:10 98.1 06/02/18 15:25 81 16 99 Room Air 21 06/02/18 15:15 83 16 94 Room Air 21 06/02/18 15:15 21 06/02/18 12:00 98.1 52 18 101/53 (69) 98.1 06/02/18 11:28 73 16 99 Room Air 21 06/02/18 11:18 21 06/02/18 11:18 77 16 95 Room Air 21 06/02/18 10:30 97.4 06/02/18 09:55 65 16 95 Room Air 21 06/02/18 09:55 65 16 95 Room Air 21 06/02/18 08:35 132/64 06/02/18 08:05 21 06/02/18 08:05 75 16 95 Room Air 21 06/02/18 07:52 97.4 54 18 132/64 (86) 99 97.4 06/02/18 07:51 Room Air 06/02/18 04:00 97.4 60 18 118/52 (74) 99 97.4 06/02/18 02:25 Room Air 21 06/02/18 02:25 Room Air 21 06/02/18 00:00 97.4 60 18 116/69 (85) 97 97.4 Intake and Output 06/01/18 06/02/18 19:00 07:00 Intake Total 920 ml 2000 ml Output Total 2000 ml 2900 ml Balance -1080 ml -900 ml Intake Oral 2000 ml Other 920 ml Output Urine Total 2000 ml 2900 ml # Voids 4 Height (Feet): 6 Height (Inches): 3.00 Weight (Pounds): 182 General Appearance: no apparent distress, alert Neurologic: oriented x 3, responsive, depressed affect Alejandro Norman MD Jun 02, 2018 23:04
[2018-06-03] VITALS: BP 137/56
[2018-06-03] MEDS: HYDROcodone/Acetamin 10/325 tab ORAL PRN ×3 (00:16→08:46)
[2018-06-03] MEDS: Albuterol/Ipratropium 3ml neb HHN SCH ×5 (00:19→13:09)
[2018-06-03 04:00] VITALS: BP 121/68
[2018-06-03 08:20] VITALS: BP 122/64
[2018-06-03] MEDS: Aspirin Baby 81mg ORAL SCH (08:45)
[2018-06-03] MEDS: Montelukast 10mg tablet ORAL SCH (08:46)
[2018-06-03] MEDS: Azithromycin 250mg tab ORAL SCH (08:46)
[2018-06-03] MEDS ORDERED: HYDROcodone/Acetamin 10/325 tab ORAL PRN (08:48)
[2018-06-03] MEDS ORDERED: Norco 5mg/325mg tab ORAL PRN (08:48)
--- NOTE | 2018-06-03 10:40 | Pulmonology Progress Note ---
Assessment/Plan Problems: (1) CHF (congestive heart failure) (2) COPD exacerbation (3) Anemia, iron deficiency (4) Nausea & vomiting Assessment/Plan Assessment: 1. Acute diastolic CHF exacerbation 2. Acute bronchospasm, possible asthma w/ acute exacerbation 3. Lower extremity edema and pain 4. HTN Plan: -diuresis per cards -Completed 5 days of Pred -nebs -Needs outpatient f/u Subjective Allergies: Coded Allergies: PENICILLINS (Verified Allergy, Unknown, 08/31/17) TRAMADOL (Verified Allergy, Unknown, 08/31/17) Subjective -4.2, AFVSS, stale on RA, less cough, less SOB, no wheezing, no CP, no F/C, + edema Objective Last 24 Hour Vital Signs Date Time Temp Pulse Resp B/P (MAP) Pulse Ox O2 Delivery O2 Flow Rate FiO2 06/03/18 08:57 74 18 98 Room Air 21 06/03/18 08:54 Room Air 06/03/18 08:49 21 06/03/18 08:49 66 18 98 Room Air 21 06/03/18 08:46 97.5 06/03/18 08:45 122/64 06/03/18 08:20 97.5 55 17 122/64 (83) 95 97.5 06/03/18 04:00 97.2 58 18 121/68 (85) 98 97.2 06/03/18 03:02 Room Air 06/03/18 03:02 Room Air 06/03/18 00:30 70 18 98 Room Air 21 06/03/18 00:22 21 06/03/18 00:20 74 18 98 Room Air 21 06/03/18 00:00 97.6 59 18 137/56 (83) 97 97.6 06/02/18 21:00 Room Air 06/02/18 20:09 66 16 99 Room Air 21 06/02/18 20:09 66 16 99 Room Air 21 06/02/18 20:00 97.8 65 18 119/54 (75) 98 97.8 06/02/18 19:59 66 16 99 Room Air 21 06/02/18 19:50 69 18 98 Room Air 21 06/02/18 19:50 21 06/02/18 16:40 97.4 06/02/18 16:34 97.4 66 18 141/59 (86) 99 97.4 06/02/18 16:10 98.1 06/02/18 15:25 81 16 99 Room Air 21 06/02/18 15:15 83 16 94 Room Air 21 06/02/18 15:15 21 06/02/18 12:00 98.1 52 18 101/53 (69) 98.1 06/02/18 11:28 73 16 99 Room Air 21 06/02/18 11:18 21 06/02/18 11:18 77 16 95 Room Air 21 Intake and Output 06/02/18 06/03/18 19:00 07:00 Intake Total 620 ml 600 ml Output Total 2200 ml 3225 ml Balance -1580 ml -2625 ml Intake Oral 620 ml 600 ml Output Urine Total 2200 ml 3225 ml # Voids 2 # Bowel Movements 2 General Appearance: WD/WN, no acute distress HEENT: normocephalic, atraumatic, anicteric, mucous membranes moist Respiratory/Chest: chest wall non-tender, lungs clear, normal breath sounds, no respiratory distress Cardiovascular: normal peripheral pulses, normal rate, regular rhythm Abdomen: normal bowel sounds, soft, non tender, no organomegaly, non distended Extremities: no cyanosis, no clubbing, other - 1+NELLIE Current Medications Medications (Trade) Dose Ordered Sig/Virgen Route PRN Reason Start Time Stop Time Status Last Admin Dose Admin Acetaminophen (Tylenol) 650 mg Q4H PRN ORAL Mild Pain/Temp > 100.5 05/30/18 23:00 06/27/18 22:59 Acetaminophen/ Hydrocodone Bitart ([place] 10/325) 1 tab Q4H PRN ORAL For severe pain 06/03/18 08:48 06/08/18 08:47 Acetaminophen/ Hydrocodone Bitart ([place] 5/325) 1 tab Q4H PRN ORAL For mild to moderate Pain 06/03/18 08:48 06/08/18 08:47 Albuterol/ Ipratropium (Albuterol/ Ipratropium) 3 ml Q4HRT HHN 05/30/18 23:00 06/03/18 22:59 06/03/18 08:49 Aspirin (ASA) 81 mg DAILY ORAL 05/31/18 09:00 06/28/18 08:59 06/03/18 08:45 Atorvastatin Calcium (Lipitor) 20 mg BEDTIME ORAL 05/31/18 21:00 06/28/18 20:59 06/02/18 20:13 Azithromycin (Zithromax) 250 mg DAILY ORAL 05/31/18 09:00 06/05/18 08:59 06/03/18 08:46 Benazepril HCl (Lotensin) 40 mg DAILY ORAL 05/31/18 09:00 06/29/18 08:59 06/03/18 08:45 Furosemide (Lasix) 40 mg EVERY 12 HOURS IV 05/31/18 09:00 06/28/18 20:59 06/03/18 09:08 Lorazepam (Ativan) 2 mg Q6H PRN ORAL Agitation 05/31/18 01:45 06/05/18 13:44 Montelukast Sodium (Singulair) 10 mg DAILY ORAL 05/31/18 09:00 06/28/18 08:59 06/03/18 08:46 Mupirocin (Bactroban Oint) 1 applic BID TOPIC 05/31/18 09:00 06/09/18 17:59 06/03/18 09:08 Prednisone (predniSONE) 40 mg DAILY ORAL 05/31/18 09:00 06/28/18 08:59 06/01/18 08:47 Salmeterol Xinafoate/ Fluticasone (Advair 250/50 Diskus) 1 puffs Q12HRT INH 05/31/18 10:00 06/28/18 09:59 06/02/18 20:07 Rashad Haji MD Jun 03, 2018 10:40
[2018-06-03] MEDS: Advair 250/50 Inhaler - 14 dose INH SCH (10:45)
[2018-06-03 12:00] VITALS: BP 125/68
--- NOTE | 2018-06-03 15:37 | Cardiac Electrophysiology PN ---
Assessment/Plan Assessment/Plan 1. Congestive heart failure due to diastolic dysfunction EF 65%. On Lasix. 2. Hypertension. Continue Lasix 40 iv bid and benazepril 40 daily 3. Asthma and Chronic obstructive pulmonary disease on albuterol and Advair. 4. Hyperlipidemia on Lipitor. 5. Morbid obesity. 6. Anemia. JEANETTE RN Subjective Subjective Comfortable in NAD. Still wheezing Objective Last 24 Hour Vital Signs Date Time Temp Pulse Resp B/P (MAP) Pulse Ox O2 Delivery O2 Flow Rate FiO2 06/03/18 13:25 98.0 06/03/18 13:17 72 18 99 Room Air 21 06/03/18 13:09 21 06/03/18 13:09 77 18 99 Room Air 21 06/03/18 12:00 98.0 58 18 125/68 (87) 95 98.0 06/03/18 09:16 97.5 06/03/18 08:57 74 18 98 Room Air 21 06/03/18 08:54 Room Air 06/03/18 08:49 21 06/03/18 08:49 66 18 98 Room Air 21 06/03/18 08:46 97.5 06/03/18 08:45 122/64 06/03/18 08:20 97.5 55 17 122/64 (83) 95 97.5 06/03/18 04:00 97.2 58 18 121/68 (85) 98 97.2 06/03/18 03:02 Room Air 06/03/18 03:02 Room Air 06/03/18 00:30 70 18 98 Room Air 21 06/03/18 00:22 21 06/03/18 00:20 74 18 98 Room Air 21 06/03/18 00:00 97.6 59 18 137/56 (83) 97 97.6 06/02/18 21:00 Room Air 06/02/18 20:09 66 16 99 Room Air 21 06/02/18 20:09 66 16 99 Room Air 21 06/02/18 20:00 97.8 65 18 119/54 (75) 98 97.8 06/02/18 19:59 66 16 99 Room Air 21 06/02/18 19:50 69 18 98 Room Air 21 06/02/18 19:50 21 06/02/18 16:34 97.4 66 18 141/59 (86) 99 97.4 06/02/18 16:10 98.1 Intake and Output 06/02/18 06/03/18 19:00 07:00 Intake Total 620 ml 600 ml Output Total 2200 ml 3225 ml Balance -1580 ml -2625 ml Intake Oral 620 ml 600 ml Output Urine Total 2200 ml 3225 ml # Voids 2 # Bowel Movements 2 Objective HEAD AND NECK: Mild JVD. LUNGS: Bilateral wheezes. CARDIOVASCULAR: Regular S1 and S2 with no gallop. ABDOMEN: Soft. EXTREMITIES: 2+ pitting edema. Prosper Crum MD Jun 03, 2018 15:37
[2018-06-03 15:58] VITALS: BP 119/99
--- NOTE | 2018-06-03 17:44 | General Progress Note ---
Assessment/Plan Status: stable Assessment/Plan # Anemia of iron deficiency - anemia panel has been reviewed --> transfuse as needed, hgb goal >8 given cardiac history --> iv iron has been completed --> no evidence of hemolysis # Leukopenia -- potentially related to meds v hemodilution --> hepatitis panel and hiv are both negative --> US abd: No acute findings. --> meds reviewed # Borderline mediastinal lymphadenopathy, stable or perhaps minimally improved since previous study. Nonspecific as regards etiology. Multiple small right lung nodules, also previously reported, appearing unchanged. 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 COPD exacerbation with shortness of breath. --> Steroids. The patient was noted to have chronic venostasis to his lower extremities. --> Patient was given Lasix with some improvement in symptoms # DVT with SCDs Greatly appreciate consultation. Subjective Date patient seen: Jun 03, 2018 Hematologic/Lymphatic: Reports: anemia Allergies: Coded Allergies: PENICILLINS (Verified Allergy, Unknown, 08/31/17) TRAMADOL (Verified Allergy, Unknown, 08/31/17) All Systems: reviewed and negative except above Subjective Pt awake and alert. No acute events. US abd unremarkable. H/H stable. DC planning. Objective Last 24 Hour Vital Signs Date Time Temp Pulse Resp B/P (MAP) Pulse Ox O2 Delivery O2 Flow Rate FiO2 06/03/18 15:58 98.2 64 20 119/99 (106) 98 98.2 06/03/18 13:25 98.0 06/03/18 13:17 72 18 99 Room Air 21 06/03/18 13:09 21 06/03/18 13:09 77 18 99 Room Air 21 06/03/18 12:00 98.0 58 18 125/68 (87) 95 98.0 06/03/18 09:16 97.5 06/03/18 08:57 74 18 98 Room Air 21 06/03/18 08:54 Room Air 06/03/18 08:49 21 06/03/18 08:49 66 18 98 Room Air 21 06/03/18 08:46 97.5 06/03/18 08:45 122/64 06/03/18 08:20 97.5 55 17 122/64 (83) 95 97.5 06/03/18 04:00 97.2 58 18 121/68 (85) 98 97.2 06/03/18 03:02 Room Air 06/03/18 03:02 Room Air 06/03/18 00:30 70 18 98 Room Air 21 06/03/18 00:22 21 06/03/18 00:20 74 18 98 Room Air 21 06/03/18 00:00 97.6 59 18 137/56 (83) 97 97.6 06/02/18 21:00 Room Air 06/02/18 20:09 66 16 99 Room Air 21 06/02/18 20:09 66 16 99 Room Air 21 06/02/18 20:00 97.8 65 18 119/54 (75) 98 97.8 06/02/18 19:59 66 16 99 Room Air 21 06/02/18 19:50 69 18 98 Room Air 21 06/02/18 19:50 21 Intake and Output 06/02/18 06/03/18 19:00 07:00 Intake Total 620 ml 600 ml Output Total 2200 ml 3225 ml Balance -1580 ml -2625 ml Intake Oral 620 ml 600 ml Output Urine Total 2200 ml 3225 ml # Voids 2 # Bowel Movements 2 Height (Feet): 6 Height (Inches): 3.00 Weight (Pounds): 412 General Appearance: no apparent distress EENT: PERRL/EOMI Neck: normal alignment Cardiovascular: normal peripheral pulses Respiratory/Chest: no respiratory distress Abdomen: soft Kade Fermin MD Jun 03, 2018 17:44
--- NOTE | 2018-06-04 13:11 | Discharge Summary ---
Discharge Summary Discharge Summary _ DATE OF ADMISSION: 05/28/2018 DATE OF DISCHARGE: 06/03/2018 REASON FOR ADMISSION: 62 years old male ,morbidly obese, with past medical history of hypertension, congestive heart failure, asthma/COPD, presented with bilateral lower extremity pain and swelling. He denied chest pain. He reported difficulty with ambulation and gradual worsening of symptoms. Patient was recently traveled from [place] to [place]. Vital signs were stable upon evaluation Troponin was negative , pro BNP 30. EKG revealed normal sinus rhythm, no acute ischemic changes No leukocytosis, hemoglobin 10.8 ,hematocrit 34.1. BUN 26, creatinine 1.0 . Stable electrolytes. Glucose 144 Chest x-ray revealed some prominence of the pulmonary interstitium ,nonspecific ; old left rib fracture, osteoporosis. Patient needs with diagnoses COPD exacerbation, CHF. CONSULTANTS: machine operator Dr. Crum pulmonary Dr. Haji competitive athlete/oncologist Dr. Fermin psychiatrist [facility]: Patient admitted to telemetry floor initially . Supplemental oxygen provided as needed to keep pulse oximetry above 92%. Pulmonary toilet via hand-held nebulizer with bronchodilator provided around the clock and as needed. Patient completed 5 days of oral prednisone. Patient was on empiric azithromycin. Chest x-ray revealed no acute cardiopulmonary pathology. Patient was continued with Advair inhaler and Singular. Cage Operator closely followed. Venous Duplex bilateral lower extremity revealed no evidence of acute DVT. Patient was recommended to follow-up with data storage specialist as outpatient. Contract Attorney closely followed. Echocardiogram on previous admission in April revealed preserved ejection fraction of 60-65%. Patient started on IV diuresis with close monitoring of cardiorenal parameters and volumes. Blood pressure was managed with BETHANY inhibitor and Lasix , and remained stable. Statin and aspirin were continued. Lipid panel was stable. Pain management was addressed. Patient was counseled on weight loss. Hemoglobin and hematocrit were closely monitored with goal to keep hemoglobin above 7. Accounts Receivable Clerk closely followed. CEA was within normal limits. Anemia workup was consistent with iron deficiency anemia. Hemoglobin and hematocrit remained at baseline ; prior to discharge hemoglobin 10.8 hematocrit 34.1. Patient with evidence of borderline mediastinal lymphadenopathy on prior CT of the abdomen and pelvis done i on last admission in April. It showed multiply small right lung nodules previously reported. as well. Borderline mediastinal lymphadenopathy stable ,perhaps minimally improved since previous study. Abdominal ultrasound revealed no acute findings. Accounts Receivable Clerk/oncologist recommend surveillance CT scan of the abdomen every 6- 12 months. Follow up with the primary care provider. DVT prophylaxis with SCD provided. Psychiatrist seen and and evaluated patient, and diagnosed patient with depression and anxiety. Reality orientation provided Patient was clinically improved; no shortness of breath ,no chest pain . Patient was stable for discharge home . FINAL DIAGNOSES: Asthma exacerbation with acute bronchospasm -resolved Acute diastolic CHF exacerbation Hypertension Hyperlipidemia Iron deficiency anemia Borderline mediastinal lymphadenopathy Chronic venous stasis bilateral lower extremity Morbid obesity Depression Anxiety disorder DISCHARGE MEDICATIONS: See Medication Reconciliation list. DISCHARGE INSTRUCTIONS: Patient was discharged home . Follow up with primary care provider in one week. Outpatient follow up with data storage specialist recommended. I have been assigned to dictate discharge summary for this account. I was not involved in the patient's management. Nga Mckee NP Jun 04, 2018 13:11
== END 2018-06-03 16:40 | disposition home or self-care (01) | DRG 194 ==
LOC: EMR 18:03 → 2E 20:53 → EDBEDREQ 21:22 → 4E 05-30 21:50
DX: I11.0 Hypertensive heart disease with heart failure (principal); E66.01 Morbid (severe) obesity due to excess calories; I50.33 Acute on chronic diastolic (congestive) heart failure; J44.1 Chronic obstructive pulmonary disease with (acute) exacerbation; E78.5 Hyperlipidemia, unspecified; D50.9 Iron deficiency anemia, unspecified; R59.0 Localized enlarged lymph nodes; I87.8 Other specified disorders of veins; F32.9 Major depressive disorder, single episode, unspecified; F41.9 Anxiety disorder, unspecified; Z88.6 Allergy status to analgesic agent; Z88.0 Allergy status to penicillin; M17.0 Bilateral primary osteoarthritis of knee
CPT/HCPCS: 36415; 71045; 71046; 76700; 80053; 82378; 82728; 83540; 83550; 83880; 84484; 85025; 86703; 86705; 86709; 86803; 87081; 87340; 93005; 93970; 94640; 94664; 96374; 96375; 99285; J7620

== ENCOUNTER 2018-06-23 18:05 | Inpatient (IN) | payer MEDICAID ==
[~2018-06-23] VITALS: Ht 190.5 cm; Wt 131.1 kg
[~2018-06-23 18:05] MED LIST changes: +PREDNISONE20 MG ORAL
--- NOTE | 2018-06-23 18:32 | Emergency Room Report ---
History of Present Illness General Chief Complaint: Lower Extremity Injury Source: Patient Present Illness HPI Mr. Cisneros is a pleasant 62 yo male with hx of CHF, asthma who presents with bilateral leg swelling and discomfort for several days. He has eaten a high sodium diet with soup recently. Mild dyspnea. Denies chest pain. SEvere discomfort with difficulty ambulatory due to tense lower extremity edema. PCP Dr. 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 Reviewed Nursing Documentation: PMH: Agreed; PSxH: Agreed Nursing Documentation-PMH Past Medical History: No History, Except For Hx Hypertension: Yes Hx Asthma: Yes Hx Cancer: No Hx Gastrointestinal Problems: No Hx Neurological Problems: No Review of Systems Constitutional: Denies: fever, malaise Cardiovascular: Denies: chest pain Gastrointestinal: Denies: abdominal pain Neurological: Denies: headache All Other Systems: negative except mentioned in HPI Physical Exam Vital Signs Date Time Temp Pulse Resp B/P (MAP) Pulse Ox O2 Delivery O2 Flow Rate FiO2 06/23/18 18:22 98.6 80 21 102/85 100 Sp02 EP Interpretation: reviewed, normal General Appearance: no apparent distress, alert, GCS 15, non-toxic, other - talkative articulate pleasant Head: normocephalic, atraumatic Eyes: bilateral eye normal inspection ENT: hearing grossly normal, normal pharynx, no angioedema, normal voice Neck: full range of motion, supple/symm/no masses Respiratory: chest non-tender, no rhonchi, no respiratory distress, no retraction, no accessory muscle use, speaking full sentences, wheezing, expiration Cardiovascular #1: regular rate, rhythm, no edema, no gallop, no murmur, no rub Gastrointestinal: normal bowel sounds, non tender, soft, no guarding, no rebound Musculoskeletal: back normal, other - tense pitting edema 2+ very large tender edematous lower legs without erythema Neurologic: alert, oriented x3, responsive, motor strength/tone normal, sensory intact, speech normal Psychiatric: judgement/insight normal, memory normal, mood/affect normal, no suicidal/homicidal ideation Skin: normal color, no rash, warm/dry, well hydrated Medical Decision Making Diagnostic Impression: Primary Impression: CHF (congestive heart failure) ER Course admitted to service of loretta Wheeler on exam, IV furosemide provided in ED EKG Diagnostic Results EKG Time: 18:59 Rate: normal Rhythm: NSR ST Segments: no acute changes Other Impression rate 65 bpm nl axis nl intervals no ST elevation no signs of ischemia Chest X-Ray Diagnostic Results Chest X-Ray Diagnostic Results : Chest X-Ray Ordered: Yes # of Views/Limited/Complete: 1 View Indication: Shortness of Breath Interpretation: other - mild interstitial edema Electronically Signed by: This image has been electronically signed by Dr. Sunshine Maki Last Vital Signs Date Time Temp Pulse Resp B/P (MAP) Pulse Ox O2 Delivery O2 Flow Rate FiO2 06/23/18 18:22 98.6 80 21 102/85 100 Sunshine Maki MD Jun 23, 2018 18:32
[2018-06-23 18:43] VITALS: BP 123/60
[2018-06-23 18:46] LABS: BASOPHILS % (AUTO) 2.8 % (0.0-2.0); EOSINOPHILS % (AUTO) 7.7 % (0.0-3.0); HEMATOCRIT 35.3 % (42.0-52.0); HEMOGLOBIN 11.4 G/DL (14.2-18.0); LYMPHOCYTES % (AUTO) 37.7 % (20.0-45.0); MEAN CORPUSCULAR VOLUME 81 FL (80-99); MONOCYTES % (AUTO) 9.1 % (1.0-10.0); NEUTROPHILS % (AUTO) 42.7 % (45.0-75.0); PLATELET COUNT 213 K/UL (150-450); RED BLOOD COUNT 4.35 M/UL (4.70-6.10); RED CELL DISTRIBUTION WIDTH 14.9 % (11.6-14.8)
[2018-06-23 19:14] LABS: ANION GAP 3 mmol/L (5-15); BLOOD UREA NITROGEN 25 mg/dL (7-18); CALCIUM 9.3 MG/DL (8.5-10.1); CARBON DIOXIDE 30 MMOL/L (21-32); CHLORIDE 106 MMOL/L (98-107); CREATININE 1.2 MG/DL (0.55-1.30); POTASSIUM 4.3 MMOL/L (3.5-5.1); SODIUM 139 MMOL/L (136-145)
[2018-06-23 19:25] LABS: ALANINE AMINOTRANSFERASE 30 U/L (12-78); ALBUMIN 3.3 G/DL (3.4-5.0); ALBUMIN/GLOBULIN RATIO 0.6 (1.0-2.7); ALKALINE PHOSPHATASE 94 U/L (46-116); ASPARTATE AMINO TRANSFERASE 19 U/L (15-37); BILIRUBIN,TOTAL 0.3 MG/DL (0.2-1.0)
[2018-06-23] MEDS ORDERED: SIMVASTATIN20 MG ORAL (19:41)
[2018-06-23] MEDS ORDERED: NORCO 10-325 T1 EACH ORAL (19:42)
[2018-06-23 21:30] VITALS: BP 125/63
[2018-06-24] VITALS: BP 132/66
[2018-06-24] MEDS ORDERED: Albuterol/Ipratropium 3ml neb HHN PRN
[2018-06-24] MEDS: HYDROcodone/Acetamin 10/325 tab ORAL PRN ×4 (03:03→21:05)
[2018-06-24 04:00] VITALS: BP 136/70
[2018-06-24 07:14] LABS: ALANINE AMINOTRANSFERASE 28 U/L (12-78); ALBUMIN 2.6 G/DL (3.4-5.0); ALBUMIN/GLOBULIN RATIO 0.6 (1.0-2.7); ALKALINE PHOSPHATASE 82 U/L (46-116); ANION GAP 7 mmol/L (5-15); ASPARTATE AMINO TRANSFERASE 16 U/L (15-37); BILIRUBIN,TOTAL 0.2 MG/DL (0.2-1.0); BLOOD UREA NITROGEN 24 mg/dL (7-18); CALCIUM 8.9 MG/DL (8.5-10.1); CARBON DIOXIDE 29 MMOL/L (21-32); CHLORIDE 106 MMOL/L (98-107); POTASSIUM 3.9 MMOL/L (3.5-5.1); SODIUM 142 MMOL/L (136-145)
[2018-06-24 07:22] LABS: BASOPHILS % (AUTO) 1.5 % (0.0-2.0); EOSINOPHILS % (AUTO) 8.6 % (0.0-3.0); HEMATOCRIT 32.2 % (42.0-52.0); HEMOGLOBIN 10.1 G/DL (14.2-18.0); MEAN CORPUSCULAR VOLUME 80 FL (80-99); MONOCYTES % (AUTO) 10.9 % (1.0-10.0); PLATELET COUNT 209 K/UL (150-450); RED BLOOD COUNT 4.02 M/UL (4.70-6.10); RED CELL DISTRIBUTION WIDTH 15.1 % (11.6-14.8); WHITE BLOOD COUNT 6.1 K/UL (4.8-10.8)
[2018-06-24 08:00] VITALS: BP_SYST 119; BP_SYST 142; BP_DIAS 63; BP_DIAS 64
[2018-06-24] MEDS: Aspirin Baby 81mg ORAL SCH (08:25)
[2018-06-24] MEDS: Heparin 5000 units/ml inj SUBQ SCH ×3 (08:26→20:14)
[2018-06-24] MEDS ORDERED: Furosemide 40mg tab ORAL SCH (09:00)
[2018-06-24] MEDS: Advair 250/50 Inhaler - 14 dose INH SCH ×2 (11:35→20:30)
--- NOTE | 2018-06-24 11:37 | Diagnostic Imaging Report ---
Indication: Dyspnea Comparison: 06/02/2018 A single view chest radiograph was obtained. Findings: Cardiomediastinal appearance is within normal limits for age. The lungs are clear. Pulmonary vascularity is appropriate. The diaphragmatic contour is smooth and costophrenic angles are sharp. No pleural effusions are identified. The bones are unremarkable. Impression: No acute findings
[2018-06-24 12:00] VITALS: BP 115/48
--- NOTE | 2018-06-24 14:47 | Consultation ---
Consult Note Consult Note HPI Mr. Cisneros is a pleasant 62 yo male with hx of CHF, asthma who presents with bilateral leg swelling and discomfort for several days. He has eaten a high sodium diet with soup recently. Mild dyspnea. Denies chest pain. SEvere discomfort with difficulty ambulatory due to tense lower extremity edema. 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
--- NOTE | 2018-06-24 15:28 | Consultation ---
Consult Note Assessment/Plan DICT # [id number] Rashad Haji MD Jun 24, 2018 15:28
[2018-06-24 16:00] VITALS: BP 129/38
--- NOTE | 2018-06-24 16:40 | Cardiology Report ---
APPROVED REPORT EKG Measurement Heart [id number] Normal sinus rhythm Cannot rule out Anterior infarct, age undetermined Abnormal ECG
--- NOTE | 2018-06-24 16:45 | Cardiac Electrophysiology PN ---
Subjective Subjective [id number] Objective Last 24 Hour Vital Signs Date Time Temp Pulse Resp B/P (MAP) Pulse Ox O2 Delivery O2 Flow Rate FiO2 06/24/18 16:00 98.2 62 20 129/38 (68) 96 06/24/18 12:00 97.6 71 20 115/48 (70) 95 06/24/18 12:00 70 06/24/18 11:41 78 20 97 Room Air 21 06/24/18 11:37 79 20 97 Room Air 21 06/24/18 09:00 Room Air 06/24/18 08:57 98.2 06/24/18 08:24 142/64 06/24/18 08:00 97.9 76 20 142/64 (90) 96 06/24/18 08:00 86 06/24/18 04:00 98.2 76 20 136/70 (92) 94 06/24/18 04:00 77 06/24/18 00:00 98.0 84 20 132/66 (88) 94 06/24/18 00:00 86 06/23/18 23:48 Room Air 06/23/18 21:30 97.7 78 20 125/63 (83) 97 06/23/18 21:10 98.6 83 22 137/50 97 Room Air 06/23/18 18:43 98.6 71 21 123/60 100 Room Air 06/23/18 18:43 71 21 Room Air 06/23/18 18:22 98.6 80 21 102/85 100 Intake and Output 06/23/18 06/24/18 18:59 06:59 Output Total 2000 ml Balance -2000 ml Output Urine Total 2000 ml # Voids 1 Laboratory Tests Test 06/23/18 18:25 06/24/18 05:35 06/24/18 16:00 White Blood Count 7.0 K/UL (4.8-10.8) 6.1 K/UL (4.8-10.8) Red Blood Count 4.35 M/UL (4.70-6.10) L 4.02 M/UL (4.70-6.10) L Hemoglobin 11.4 G/DL (14.2-18.0) L 10.1 G/DL (14.2-18.0) L Hematocrit 35.3 % (42.0-52.0) L 32.2 % (42.0-52.0) L Mean Corpuscular Volume 81 FL (80-99) 80 FL (80-99) Mean Corpuscular Hemoglobin 26.2 PG (27.0-31.0) L 25.0 PG (27.0-31.0) L Mean Corpuscular Hemoglobin Concent 32.3 G/DL (32.0-36.0) 31.2 G/DL (32.0-36.0) L Red Cell Distribution Width 14.9 % (11.6-14.8) H 15.1 % (11.6-14.8) H Platelet Count 213 K/UL (150-450) 209 K/UL (150-450) Mean Platelet Volume 7.3 FL (6.5-10.1) 7.3 FL (6.5-10.1) Neutrophils (%) (Auto) 42.7 % (45.0-75.0) L 26.0 % (45.0-75.0) L Lymphocytes (%) (Auto) 37.7 % (20.0-45.0) 53.0 % (20.0-45.0) H Monocytes (%) (Auto) 9.1 % (1.0-10.0) 10.9 % (1.0-10.0) H Eosinophils (%) (Auto) 7.7 % (0.0-3.0) H 8.6 % (0.0-3.0) H Basophils (%) (Auto) 2.8 % (0.0-2.0) H 1.5 % (0.0-2.0) Sodium Level 139 MMOL/L (136-145) 142 MMOL/L (136-145) Potassium Level 4.3 MMOL/L (3.5-5.1) 3.9 MMOL/L (3.5-5.1) Chloride Level 106 MMOL/L (98-107) 106 MMOL/L (98-107) Carbon Dioxide Level 30 MMOL/L (21-32) 29 MMOL/L (21-32) Anion Gap 3 mmol/L (5-15) L 7 mmol/L (5-15) Blood Urea Nitrogen 25 mg/dL (7-18) H 24 mg/dL (7-18) H Creatinine 1.2 MG/DL (0.55-1.30) 1.0 MG/DL (0.55-1.30) Estimat Glomerular Filtration Rate > 60 mL/min (>60) > 60 mL/min (>60) Glucose Level 96 MG/DL (74-106) 87 MG/DL (74-106) Calcium Level 9.3 MG/DL (8.5-10.1) 8.9 MG/DL (8.5-10.1) Total Bilirubin 0.3 MG/DL (0.2-1.0) 0.2 MG/DL (0.2-1.0) Aspartate Amino Transf (AST/SGOT) 19 U/L (15-37) 16 U/L (15-37) Alanine Aminotransferase (ALT/SGPT) 30 U/L (12-78) 28 U/L (12-78) Alkaline Phosphatase 94 U/L (46-116) 82 U/L (46-116) Troponin I 0.008 ng/mL (0.000-0.056) Pro-B-Type Natriuretic Peptide 158 pg/mL (0-125) H Total Protein 8.5 G/DL (6.4-8.2) H 6.7 G/DL (6.4-8.2) Albumin 3.3 G/DL (3.4-5.0) L 2.6 G/DL (3.4-5.0) L Globulin 5.2 g/dL 4.1 g/dL Albumin/Globulin Ratio 0.6 (1.0-2.7) L 0.6 (1.0-2.7) L Ferritin 82 NG/ML (8-388) C-Reactive Protein, Quantitative 1.0 mg/dL (0.00-0.90) H D-Dimer Pending Prosper Crum MD Jun 24, 2018 16:45
[2018-06-24] MEDS: Montelukast 10mg tablet ORAL SCH (16:48)
[2018-06-24 17:50] LABS: APPEARANCE,URINE CLEAR; BILIRUBIN, URINE NEGATIVE (NEGATIVE); COLOR,URINE PALE YELLOW; GLUCOSE, URINE (UA) NEGATIVE (NEGATIVE); KETONES,URINE NEGATIVE (NEGATIVE); LEUKOCYTE ESTERASE ,URINE NEGATIVE (NEGATIVE); NITRITE,URINE NEGATIVE (NEGATIVE); PH,URINE 7 (4.5-8.0); PROTEIN,URINE NEGATIVE (NEGATIVE); UROBILINOGEN,URINE NORMAL MG/DL (0.0-1.0)
--- NOTE | 2018-06-24 18:45 | Consultation ---
DATE OF CONSULTATION: 06/24/2018 HEMATOLOGY/ONCOLOGY CONSULTATION CONSULTING PHYSICIAN: Kade Fermin M.D. REQUESTING PHYSICIAN: Brittney Shepard M.D. REASON FOR CONSULTATION: Lower extremity edema for the past five days. IDENTIFYING DATA: Dear Dr. Shepard: The patient is a well known patient to me. The patient is a pleasant 62-year-old male with history of CHF, asthma, lower extremity swelling for the past several days, has a high sodium diet with soup, recently had severe discomfort in lower extremities edema. Cardiology service consulted, has been given Lasix. Hematology service consulted given ongoing history of anemia. PAST MEDICAL HISTORY: CHF and asthma. ALLERGIES: No known drug allergies. PAST SURGICAL HISTORY: Appendectomy and right ankle surgery. SOCIAL HISTORY: Former smoker. No illicit drug use. No alcohol. 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 FAMILY HISTORY: Noncontributory. REVIEW OF SYSTEMS: Difficult to obtain. The patient is sleepy this morning, but otherwise, 12-point review of systems completed and is negative. PHYSICAL EXAMINATION: VITAL SIGNS: Reviewed. GENERAL: No acute distress. PULMONARY: Decreased breath sounds. Some crackles at the lower bases. CARDIOVASCULAR: Regular rate. EXTREMITIES: A 3 to 4+ edema. LABORATORY AND DIAGNOSTIC DATA: WBC 3.1, hemoglobin , hematocrit 32, and platelet count 209,000. Chemistry, BUN 22 and creatinine of 1. Reviewed the patient's laboratories. I have ordered for ferritin. Imaging, abdominal ultrasound reviewed from prior admission. Liver unremarkable. ASSESSMENT AND RECOMMENDATIONS: 1. Anemia due to underlying iron deficiency. The patient on prior admission given IV iron. Continue to recheck for ferritin. 2. . 3. Leukopenia in the past. Hepatitis and HIV is negative. Ultrasound showed no acute findings. Medications have been reviewed. 4. Borderline mediastinal lymphadenopathy, etiology. Multiple small right lung nodules. Repeat CT scan in 6 to 12 months. 5. Congestive heart failure exacerbation versus asthma. as per Dr. Crum. Appreciate cardiology consultation. 6. Chronic venous stasis lower extremities. 7. Chronic obstructive pulmonary disease exacerbation. Shortness of breath. Given steroids and Lasix. 8. DVT prophylaxis with heparin. I appreciate the consultation. Kade Fermin M.D. DR: ISHAAN JOB#: [id number] CC:
[2018-06-24 20:00] VITALS: BP 116/61
--- NOTE | 2018-06-24 20:00 | Consultation ---
DATE OF CONSULTATION: 06/24/2018 PULMONARY CONSULTATION CONSULTING PHYSICIAN: Rashad Haji M.D. REFERRING PHYSICIAN: Brittney Shepard M.D. REASON FOR CONSULTATION: Shortness of breath. HISTORY OF PRESENT ILLNESS: The patient is a 62-year-old male last seen by me prior to discharge on who now presents with several days of cough, congestion, shortness of breath, and lower extremity edema. He states he has been compliant with his medications, but has had some dietary indiscretions. Nonetheless, he presented to the hospital. He has been afebrile, vitals are stable, saturating well on room air. He has marked lower extremity edema. Renal function is stable. BNP is only slightly elevated. His last echocardiogram on 04/24/2018 showed an EF of 60% to 65% with mild left ventricular hypertrophy, normal by chamber size, increased IVC, and PA systolic was 33. At that time, he has trace TR. He has also had some faint bilateral ground-glass nodules and adenopathy that is being followed at [facility] per his report. Initially, he had multiple small right lung nodules which have been unchanged on most recent follow-up. Mediastinal lymph nodes were smaller than prior. The patient denies any cough or hemoptysis. He had some wheezing. No weight loss. No fevers, chills, headaches, or dizziness. PAST MEDICAL HISTORY: 1. Congestive heart failure. 2. Obesity. 3. Likely THERON. 4. Asthma. 5. Hypertension. 6. Anemia. 7. Protein-calorie malnutrition. ALLERGIES: Penicillin and tramadol. MEDICATIONS: Prior to admission medications reviewed. Current medications reviewed. SOCIAL HISTORY: No tobacco, alcohol, or drug use. FAMILY HISTORY: Noncontributory. REVIEW OF SYSTEMS: Negative other than history of present illness. PHYSICAL EXAMINATION: VITAL SIGNS: Temperature 97.6, pulse 71, blood pressure 115/48, respiratory rate 20, and saturating 97% on room air. GENERAL: He is a well-developed, well-nourished male, in no acute distress. Awake, alert, and oriented x3. HEENT: Normocephalic and atraumatic. Oropharynx clear with moist mucous membranes. NECK: Supple without lymphadenopathy. JVP is elevated. CHEST: Clear. Decreased at the bases. Faint end-expiratory wheezing. HEART: Regular rhythm. ABDOMEN: Soft and nondistended. EXTREMITIES: No cyanosis, clubbing, or edema. ANCILLARY DATA: White count 6.1, hemoglobin 10.1, and platelet count 209,000. Sodium 142, potassium 3.9, chloride 106, bicarbonate 29, BUN 24, and creatinine 1. LFTs within normal limits. Troponin negative. BNP 158. Chest x-ray, unchanged from prior. Normal vascularity. ASSESSMENT: The patient is a 62-year-old male, lifelong nonsmoker with a history of congestive heart failure with diastolic dysfunction, pulmonary hypertension, obesity, likely obstructive sleep apnea, known pulmonary nodules, anemia and asthma, presenting with shortness of breath likely secondary to a combination of decompensated heart failure and an exacerbation of his underlying asthma. PROBLEM LIST: 1. Shortness of breath likely secondary to decompensated heart failure and asthma. 2. Asthma with acute exacerbation. 3. CHF with diastolic dysfunction, acute exacerbation. 4. Bilateral lower extremity edema, likely secondary to above. 5. Known scattered bilateral subcentimeter nodules, stable on follow-up imaging with stable lymphadenopathy. 6. Anemia. 7. Hypertension. 8. Obesity. 9. Likely THERON. TREATMENT PLAN: 1. Optimize pulmonary hygiene/mobilize as tolerated. 2. P.r.n. O2 to keep saturations greater than 90%. 3. [id number] and p.r.n. bronchodilators. 4. We will start Solu-Medrol 40 IV b.i.d. and taper. 5. Observe off antibiotics. 6. Monitor volumes, diurese to keep negative as tolerated. 7. ABG. 8. The patient needs outpatient PFTs and sleep study. 9. Continue to follow up with [facility] per the patient. 10. DVT prophylaxis, heparin subcutaneous. 11. We will check a duplex. 12. Weight-loss diet and exercise discussed again. Rashad Haji M.D. DR: SHARDA JOB#: [id number] CC:
[2018-06-24] MEDS: Solu-MEDROL 40mg Inj IVP SCH (20:13)
[2018-06-24] MEDS: Albuterol/Ipratropium 3ml neb HHN SCH (20:30)
--- NOTE | 2018-06-24 22:45 | Consultation ---
DATE OF CONSULTATION: 06/24/2018 CARDIOLOGY CONSULTATION REASON FOR CONSULTATION: Exacerbation of congestive heart failure. HISTORY OF PRESENT ILLNESS: The patient is a 62-year-old gentleman with history of hypertension, congestive heart failure with diastolic dysfunction, as well as chronic obstructive pulmonary disease and chronic bilateral lower extremity edema, who was just recently discharged, who has been eating a lot of sodium containing diet and soup and presented to emergency room with severe bilateral lower extremity edema to the point that he is not able to ambulate. The patient was admitted and Cardiology consultation was obtained for further evaluation and management. PAST MEDICAL HISTORY: 1. Hypertension. 2. Congestive heart failure with diastolic dysfunction. 3. Chronic obstructive pulmonary disease. 4. Iron deficiency anemia. FAMILY HISTORY: Noncontributory. SOCIAL HISTORY: Does not smoke or drink alcohol. REVIEW OF SYSTEMS: Negative other than what was mentioned in the history of present illness. PHYSICAL EXAMINATION: VITAL SIGNS: Blood pressure 129/38, pulse 62, respirations 18, and he is afebrile. HEAD AND NECK: Shows mild jugular venous distention. LUNGS: Decreased breath sounds. Coarse rhonchi. CARDIOVASCULAR: Shows regular S1 and S2 with no gallop or murmur. ABDOMEN: Soft. EXTREMITIES: Bilateral 2+ pitting edema. LABORATORY AND DIAGNOSTIC STUDIES: His laboratory show white count of 6.1, hemoglobin 10, hematocrit of 32, and platelet count is 209,000. Sodium is 142, potassium 3.9, BUN of 24, and creatinine 1. Troponin is negative. His BNP is 158. ASSESSMENT AND PLAN: 1. Congestive heart failure with diastolic dysfunction. Increase the Lasix to 80 mg IV b.i.d. Continue the patient's electrolytes. 2. Hypertension. On Lotensin 20 mg as well as Lasix 40 IV b.i.d. 3. Hyperlipidemia. On Lipitor. 4. Chronic obstructive pulmonary disease. On Solu-Medrol and Advair. Thank you very much for allowing me to participate in the care of this patient. Please do not hesitate to contact me for any questions regarding my evaluation. Prosper Crum M.D. DR: AMEE JOB#: [id number] CC:
[2018-06-25] VITALS: BP 123/79
[2018-06-25] MEDS: Albuterol/Ipratropium 3ml neb HHN SCH ×4 (01:31→19:58)
--- NOTE | 2018-06-25 01:45 | History and Physical Report ---
DATE OF ADMISSION: 06/23/2018 HISTORY OF PRESENT ILLNESS: The patient is being admitted again here for CHF exacerbation. The patient has worsening leg edema. The patient also has asthma and reporting worsening bilateral swelling, ____ orthopnea and is admitted for CHF exacerbation. Does have shortness of breath. PAST MEDICAL HISTORY: Chronic pain syndrome, congestive heart failure, leg edema, hypertension, and asthma. PAST SURGICAL HISTORY: Right ankle surgery and appendectomy. SOCIAL HISTORY: Former smoker. FAMILY HISTORY: Noncontributory. REVIEW OF SYSTEMS: HEENT: Denies headaches. RESPIRATORY: Reports shortness of breath. Denies cough. CARDIOVASCULAR: Denies chest pain. Reports orthopnea. GASTROINTESTINAL: Denies nausea, vomiting, or diarrhea. EXTREMITIES: Reports worsening leg edema. CENTRAL NERVOUS SYSTEM: No change in vision or speech pattern. PHYSICAL EXAMINATION: VITAL SIGNS: Temperature 97.6, pulse 71, and blood pressure 151/48. HEENT: PERRLA. NECK: Supple. CHEST: Bibasilar rales CARDIOVASCULAR: Regular rate and rhythm. GASTROINTESTINAL: Soft and distended. Positive bowel sounds. EXTREMITIES: 2+ pitting edema in the lower extremities. Reflexes equal on both sides. LABORATORY DATA: WBC 7, hemoglobin 11.4, and platelets of 213,000. Sodium 139, potassium 4.3, BUN of 20, and creatinine 1.2. Troponins negative. ASSESSMENT: Congestive heart failure exacerbation. PLAN: I have asked Dr. Crum, Dr. Haji, Dr. Hardwick to see the patient for CHF exacerbation and fluid management. Brittney Shepard M.D. DR: LINDSAY JOB#: [id number] CC:
[2018-06-25] MEDS: HYDROcodone/Acetamin 10/325 tab ORAL PRN ×4 (01:46→18:24)
[2018-06-25 04:00] VITALS: BP 122/59
[2018-06-25 05:03] LABS: BASOPHILS % (AUTO) 0.6 % (0.0-2.0); EOSINOPHILS % (AUTO) 0.1 % (0.0-3.0); HEMATOCRIT 35.6 % (42.0-52.0); HEMOGLOBIN 11.2 G/DL (14.2-18.0); LYMPHOCYTES % (AUTO) 22.8 % (20.0-45.0); MEAN CORPUSCULAR VOLUME 80 FL (80-99); MONOCYTES % (AUTO) 1.6 % (1.0-10.0); NEUTROPHILS % (AUTO) 74.9 % (45.0-75.0); PLATELET COUNT 198 K/UL (150-450); RED BLOOD COUNT 4.43 M/UL (4.70-6.10); RED CELL DISTRIBUTION WIDTH 14.9 % (11.6-14.8); WHITE BLOOD COUNT 3.8 K/UL (4.8-10.8)
[2018-06-25 05:33] LABS: ALANINE AMINOTRANSFERASE 39 U/L (12-78); ALBUMIN 2.8 G/DL (3.4-5.0); ALBUMIN/GLOBULIN RATIO 0.5 (1.0-2.7); ALKALINE PHOSPHATASE 93 U/L (46-116); ANION GAP 6 mmol/L (5-15); ASPARTATE AMINO TRANSFERASE 30 U/L (15-37); BILIRUBIN,TOTAL 0.2 MG/DL (0.2-1.0); BLOOD UREA NITROGEN 24 mg/dL (7-18); CALCIUM 9.3 MG/DL (8.5-10.1); CARBON DIOXIDE 30 MMOL/L (21-32); CHLORIDE 102 MMOL/L (98-107); CHOLESTEROL 182 MG/DL (< 200); CREATININE 1.1 MG/DL (0.55-1.30); GAMMA GLUTAMYL TRANSPEPTIDASE 30 U/L (5-85); HDL CHOLESTEROL 58 MG/DL (40-60); PHOSPHORUS 4.3 MG/DL (2.5-4.9); POTASSIUM 4.1 MMOL/L (3.5-5.1); SODIUM 138 MMOL/L (136-145); TRIGLYCERIDES 21 MG/DL (30-150)
[2018-06-25 05:47] LABS: % IRON SATURATION 11 % (15-50); IRON 29 ug/dL (50-175); TOTAL IRON BINDING CAPACITY 275 ug/dL (250-450)
--- NOTE | 2018-06-25 07:20 | General Progress Note ---
Assessment/Plan Assessment/Plan ASSESSMENT AND RECOMMENDATIONS: #. Anemia due to underlying iron deficiency. The patient on prior admission given IV iron. --> ferritin is reviewed and is 82, TIBC is approx 200, likely iron repleted #. Anemia due to hemodilution with chf overload --> as per cardiology, diuresis is appreciated #. Leukopenia in the past. Hepatitis and HIV is negative. Ultrasound showed no acute findings. Medications have been reviewed. --> trend as needed --> given neupogen if anc <1000 #. Borderline mediastinal lymphadenopathy, nonspecific etiology. Multiple small right lung nodules. --> Repeat CT scan in 6 to 12 months. #. Congestive heart failure exacerbation versus asthma. as per Dr. Crum. Appreciate cardiology consultation. --> cards and pulm recs reviewed #. Chronic venous stasis lower extremities. #. Chronic obstructive pulmonary disease exacerbation. Shortness of breath. Given steroids and Lasix. #. DVT prophylaxis with heparin. Subjective Constitutional: Denies: no symptoms, chills, diaphoresis, fever, malaise, weakness, other HEENT: Denies: no symptoms, eye pain, blurred vision, tearing, double vision, ear pain, ear discharge, nose pain, nose congestion, throat pain, throat swelling, mouth pain, mouth swelling, other Respiratory: Denies: no symptoms, cough, orthopnea, shortness of breath, SOB with excertion, SOB at rest, sputum, stridor, wheezing, other Gastrointestinal/Abdominal: Denies: no symptoms, abdomen distended, abdominal pain, black stools, tarry stools, blood in stool, constipated, diarrhea, difficulty swallowing, nausea, poor appetite, poor fluid intake, rectal bleeding , vomiting, other Genitourinary: Denies: no symptoms, burning, discharge, frequency, flank pain, hematuria, incontinence, pain, urgency, other Neurologic/Psychiatric: Denies: no symptoms, anxiety, depressed, emotional problems, headache, numbness, paresthesia, pre-existing deficit, seizure, tingling, tremors, weakness, other Endocrine: Denies: no symptoms, excessive sweating, flushing, intolerance to cold, intolerance to heat, increased hunger, increased thirst, increased urine, unexplained weight gain, unexplained weight loss, other Hematologic/Lymphatic: Denies: no symptoms, anemia, easy bleeding, easy bruising, other Allergies: Coded Allergies: PENICILLINS (Verified Allergy, Unknown, 08/31/17) TRAMADOL (Verified Allergy, Unknown, 08/31/17) Subjective feeling better overall though legs are still swollen Objective Last 24 Hour Vital Signs Date Time Temp Pulse Resp B/P (MAP) Pulse Ox O2 Delivery O2 Flow Rate FiO2 06/25/18 04:00 97.7 61 18 122/59 (80) 98 06/25/18 03:34 70 06/25/18 02:15 98.6 06/25/18 01:44 64 20 98 Room Air 21 06/25/18 01:32 60 16 Room Air 21 06/25/18 01:31 60 18 95 Room Air 21 06/25/18 00:00 57 06/25/18 00:00 98.6 121 20 123/79 (94) 99 06/24/18 21:00 Room Air 06/24/18 20:41 68 20 97 Room Air 21 06/24/18 20:30 64 18 96 Room Air 21 06/24/18 20:00 98.7 62 20 116/61 (79) 98 06/24/18 20:00 65 06/24/18 17:33 129/38 06/24/18 16:00 98.2 62 20 129/38 (68) 96 06/24/18 16:00 65 06/24/18 12:00 97.6 71 20 115/48 (70) 95 06/24/18 12:00 70 06/24/18 11:41 78 20 97 Room Air 21 06/24/18 11:37 79 20 97 Room Air 21 06/24/18 09:00 Room Air 06/24/18 08:24 142/64 06/24/18 08:00 97.9 76 20 142/64 (90) 96 06/24/18 08:00 86 Intake and Output 06/24/18 06/25/18 19:00 07:00 Intake Total 1100 ml Output Total 2650 ml 2500 ml Balance -1550 ml -2500 ml Intake Oral 1100 ml Output Urine Total 2650 ml 2500 ml # Voids 10 # Bowel Movements 2 2 Laboratory Tests 06/24/18 16:00: D-Dimer 2.19H 06/24/18 17:00: Urine Color Pale yellow, Urine Appearance Clear, Urine pH 7, Urine Specific [place] 1.010, Urine Protein Negative, Urine Glucose (UA) Negative, Urine Ketones Negative, Urine Blood Negative, Urine Nitrite Negative, Urine Bilirubin Negative, Urine Urobilinogen Normal, Urine Leukocyte Esterase Negative, Urine RBC 0-2H, Urine WBC 0, Urine Squamous Epithelial Cells Occasional, Urine Bacteria None 06/25/18 04:26: White Blood Count 3.8L, Red Blood Count 4.43L, Hemoglobin 11.2L, Hematocrit 35.6L, Mean Corpuscular Volume 80, Mean Corpuscular Hemoglobin 25.2L, Mean Corpuscular Hemoglobin Concent 31.4L, Red Cell Distribution Width 14.9H, Platelet Count 198, Mean Platelet Volume 6.9, Neutrophils (%) (Auto) 74.9, Lymphocytes (%) (Auto) 22.8, Monocytes (%) (Auto) 1.6, Eosinophils (%) (Auto) 0.1, Basophils (%) (Auto) 0.6, Sodium Level 138, Potassium Level 4.1, Chloride Level 102, Carbon Dioxide Level 30, Anion Gap 6, Blood Urea Nitrogen 24H, Creatinine 1.1, Estimat Glomerular Filtration Rate > 60, Glucose Level 151H, Hemoglobin A1c 6.0, Uric Acid 7.1, Calcium Level 9.3, Phosphorus Level 4.3, Magnesium Level 1.9, Iron Level 29L, Total Iron Binding Capacity 275, Percent Iron Saturation 11L, Unsaturated Iron Binding 246, Total Bilirubin 0.2, Gamma Glutamyl Transpeptidase 30, Aspartate Amino Transf (AST/SGOT) 30, Alanine Aminotransferase (ALT/SGPT) 39, Alkaline Phosphatase 93, Troponin I 0.006, Pro-B -Type Natriuretic Peptide 326H, Total Protein 7.9, Albumin 2.8L, Globulin 5.1, Albumin/Globulin Ratio 0.5L, Triglycerides Level 21L, Cholesterol Level 182, LDL Cholesterol 114H, HDL Cholesterol 58, Cholesterol/HDL Ratio 3.1L, Vitamin B12 Level 1142H, Thyroid Stimulating Hormone (TSH) 0.227L Height (Feet): 6 Height (Inches): 3.00 Weight (Pounds): 319 General Appearance: alert EENT: TMs normal Neck: supple Cardiovascular: normal rate Respiratory/Chest: lungs clear Abdomen: non tender Extremities: normal inspection Neurologic: oriented x 3 Skin: warm/dry Objective PHYSICAL EXAMINATION: VITAL SIGNS: Blood pressure 129/38, pulse 62, respirations 18, and he is afebrile. HEAD AND NECK: Shows mild jugular venous distention. LUNGS: Decreased breath sounds. Coarse rhonchi. CARDIOVASCULAR: Shows regular S1 and S2 with no gallop or murmur. ABDOMEN: Soft. EXTREMITIES: Bilateral 3+ pitting edema. Kade Fermin MD Jun 25, 2018 07:20
[2018-06-25 08:00] VITALS: BP 123/59
[2018-06-25] MEDS: Aspirin Baby 81mg ORAL SCH (08:49)
[2018-06-25] MEDS: Solu-MEDROL 40mg Inj IVP SCH ×2 (08:54→20:20)
[2018-06-25] MEDS: Heparin 5000 units/ml inj SUBQ SCH ×3 (09:00→20:35)
[2018-06-25] MEDS: Advair 250/50 Inhaler - 14 dose INH SCH ×2 (09:40→21:26)
[2018-06-25 12:00] VITALS: BP 135/72
--- NOTE | 2018-06-25 12:18 | Diagnostic Imaging Report ---
Indication: Chest pain. Shortness of breath. Elevated d-dimer Technique: A ventilation/perfusion scan was performed. Ventilation was performed utilizing 40 mCi of Technetium 99m-DTPA. Perfusion was performed with 5.5 mCi of technetium 99m-MAA injected intravenously. Multiple side by side projections obtained. Findings: Chest x-ray shows clear lungs. Ventilation is mildly heterogeneous. No significant defects are identified. Prominent bronchial airway noted centrally. Perfusion is mildly heterogeneous. No segmental defects are identified. Impression: Low probability for pulmonary embolus
--- NOTE | 2018-06-25 12:31 | Diagnostic Imaging Report ---
APPROVED REPORT CPT Code: 08631 Present Symptoms Comments: BILATERAL LEGS PAIN. BILATERAL: Imaging reveals a patent deep venous system bilaterally. There is no evidence of thrombus within the femoral, popliteal or tibial segments. The greater saphenous veins are also within normal limits. Doppler indicates normal spontaneous flow within these segments.
--- NOTE | 2018-06-25 12:44 | Nephrology Progress Note ---
Assessment/Plan Problem List: (1) Anemia, iron deficiency (2) CHF (congestive heart failure) (3) COPD exacerbation Assessment - CHF (congestive heart failure) - COPD exacerbation - Anemia, iron deficiency - HTN Plan Anemia grover IV Iron pulm support Taper steroids as needed 2D echo ej Fx 60% done previously- re eval- monitor lytes per orders Subjective ROS Limited/Unobtainable: No Constitutional: Reports: malaise Objective Objective Last 24 Hour Vital Signs Date Time Temp Pulse Resp B/P (MAP) Pulse Ox O2 Delivery O2 Flow Rate FiO2 06/25/18 09:00 Room Air 06/25/18 08:54 118/59 06/25/18 08:00 47 06/25/18 08:00 97.1 98 18 123/59 (80) 100 06/25/18 07:41 62 18 98 Room Air 21 06/25/18 07:31 57 17 96 Room Air 21 06/25/18 04:00 97.7 61 18 122/59 (80) 98 06/25/18 03:34 70 06/25/18 02:15 98.6 06/25/18 01:44 64 20 98 Room Air 21 06/25/18 01:32 60 16 Room Air 21 06/25/18 01:31 60 18 95 Room Air 21 06/25/18 00:00 57 06/25/18 00:00 98.6 121 20 123/79 (94) 99 06/24/18 21:00 Room Air 06/24/18 20:41 68 20 97 Room Air 21 06/24/18 20:30 64 18 96 Room Air 21 06/24/18 20:00 98.7 62 20 116/61 (79) 98 06/24/18 20:00 65 06/24/18 17:33 129/38 06/24/18 16:00 98.2 62 20 129/38 (68) 96 06/24/18 16:00 65 Intake and Output 06/24/18 06/25/18 19:00 07:00 Intake Total 1100 ml Output Total 2650 ml 2500 ml Balance -1550 ml -2500 ml Intake Oral 1100 ml Output Urine Total 2650 ml 2500 ml # Voids 10 # Bowel Movements 2 2 Laboratory Tests 06/24/18 16:00: D-Dimer 2.19H 06/24/18 17:00: Urine Color Pale yellow, Urine Appearance Clear, Urine pH 7, Urine Specific [place] 1.010, Urine Protein Negative, Urine Glucose (UA) Negative, Urine Ketones Negative, Urine Blood Negative, Urine Nitrite Negative, Urine Bilirubin Negative, Urine Urobilinogen Normal, Urine Leukocyte Esterase Negative, Urine RBC 0-2H, Urine WBC 0, Urine Squamous Epithelial Cells Occasional, Urine Bacteria None 06/25/18 04:26: White Blood Count 3.8L, Red Blood Count 4.43L, Hemoglobin 11.2L, Hematocrit 35.6L, Mean Corpuscular Volume 80, Mean Corpuscular Hemoglobin 25.2L, Mean Corpuscular Hemoglobin Concent 31.4L, Red Cell Distribution Width 14.9H, Platelet Count 198, Mean Platelet Volume 6.9, Neutrophils (%) (Auto) 74.9, Lymphocytes (%) (Auto) 22.8, Monocytes (%) (Auto) 1.6, Eosinophils (%) (Auto) 0.1, Basophils (%) (Auto) 0.6, Sodium Level 138, Potassium Level 4.1, Chloride Level 102, Carbon Dioxide Level 30, Anion Gap 6, Blood Urea Nitrogen 24H, Creatinine 1.1, Estimat Glomerular Filtration Rate > 60, Glucose Level 151H, Hemoglobin A1c 6.0, Uric Acid 7.1, Calcium Level 9.3, Phosphorus Level 4.3, Magnesium Level 1.9, Iron Level 29L, Total Iron Binding Capacity 275, Percent Iron Saturation 11L, Unsaturated Iron Binding 246, Total Bilirubin 0.2, Gamma Glutamyl Transpeptidase 30, Aspartate Amino Transf (AST/SGOT) 30, Alanine Aminotransferase (ALT/SGPT) 39, Alkaline Phosphatase 93, Troponin I 0.006, Pro-B -Type Natriuretic Peptide 326H, Total Protein 7.9, Albumin 2.8L, Globulin 5.1, Albumin/Globulin Ratio 0.5L, Triglycerides Level 21L, Cholesterol Level 182, LDL Cholesterol 114H, HDL Cholesterol 58, Cholesterol/HDL Ratio 3.1L, Vitamin B12 Level 1142H, Thyroid Stimulating Hormone (TSH) 0.227L Height (Feet): 6 Height (Inches): 3.00 Weight (Pounds): 319 General Appearance: no apparent distress Objective no change Jerzy Hardwick MD Jun 25, 2018 12:44
--- NOTE | 2018-06-25 13:27 | Pulmonology Progress Note ---
Assessment/Plan Assessment/Plan ASSESSMENT: The patient is a 62-year-old male, lifelong nonsmoker with aahistory of congestive heart failure with diastolic dysfunction, pulmonary hypertension, obesity, likely obstructive sleep apnea, known pulmonary nodules, anemia and asthma, presenting with shortness of breath likely secondary to a combination of decompensated heart failure and an exacerbation of his underlying asthma. PROBLEM LIST: 1. Shortness of breath likely secondary to decompensated heart failure and asthma. 2. Asthma with acute exacerbation. 3. CHF with diastolic dysfunction, acute exacerbation. 4. Bilateral lower extremity edema, likely secondary to above. 5. Known scattered bilateral subcentimeter nodules, stable on follow-up imaging with stable lymphadenopathy. 6. Pulmonary HTN 7. Anemia. 8. Hypertension. 9. Obesity. 10. Likely THERON. 11. Elevated D-dimer with a negative duplex and low probability VQ TREATMENT PLAN: 1. Optimize pulmonary hygiene/mobilize as tolerated. 2. P.r.n. O2 to keep saturations greater than 90%. 3. Gabff-iqc-lyexa and p.r.n. bronchodilators. 4. Decrease Solu-Medrol to 30 IV b.i.d. and taper. 5. Observe off antibiotics. 6. Monitor volumes, diurese to keep negative as tolerated. 7. ABG. 8. F/U cardiology recommendations 9. Continue to follow up with [facility] per the patient. I have advised him to take a copy of his CT's and TTE's to [facility]. It is unclear what kind of pulmonary work up he has had in the past but he needs to have PTF's, PST and a PH w/u (possible RHC) if not already done. He also needs surveillance imaging of his chest CT findings. He states his coder @ [facility] is aware and is following him regularly. 10. DVT prophylaxis, heparin subcutaneous. 11. Weight-loss diet and exercise discussed again. Subjective Allergies: Coded Allergies: PENICILLINS (Verified Allergy, Unknown, 08/31/17) TRAMADOL (Verified Allergy, Unknown, 08/31/17) Subjective -4L, AFVSS, on RA TTE noted D-dimer elevated, duplex and VQ negative Less SOB, no cough, no SOB, no wheezing, less NELLIE, no FC Objective Last 24 Hour Vital Signs Date Time Temp Pulse Resp B/P (MAP) Pulse Ox O2 Delivery O2 Flow Rate FiO2 11/7/18 13:03 59 17 94 Room Air 21 06/25/18 09:00 Room Air 06/25/18 08:54 118/59 06/25/18 08:00 47 06/25/18 08:00 97.1 98 18 123/59 (80) 100 06/25/18 07:41 62 18 98 Room Air 21 06/25/18 07:31 57 17 96 Room Air 21 06/25/18 04:00 97.7 61 18 122/59 (80) 98 06/25/18 03:34 70 06/25/18 02:15 98.6 06/25/18 01:44 64 20 98 Room Air 21 06/25/18 01:32 60 16 Room Air 21 06/25/18 01:31 60 18 95 Room Air 21 06/25/18 00:00 57 06/25/18 00:00 98.6 121 20 123/79 (94) 99 06/24/18 21:00 Room Air 06/24/18 20:41 68 20 97 Room Air 21 06/24/18 20:30 64 18 96 Room Air 21 06/24/18 20:00 98.7 62 20 116/61 (79) 98 06/24/18 20:00 65 06/24/18 17:33 129/38 06/24/18 16:00 98.2 62 20 129/38 (68) 96 06/24/18 16:00 65 Intake and Output 06/24/18 06/25/18 19:00 07:00 Intake Total 1100 ml Output Total 2650 ml 2500 ml Balance -1550 ml -2500 ml Intake Oral 1100 ml Output Urine Total 2650 ml 2500 ml # Voids 10 # Bowel Movements 2 2 General Appearance: no acute distress, other - obese male HEENT: normocephalic, atraumatic, anicteric, mucous membranes moist Respiratory/Chest: chest wall non-tender, lungs clear, normal breath sounds, no respiratory distress, no accessory muscle use Cardiovascular: normal peripheral pulses, normal rate, regular rhythm Abdomen: normal bowel sounds, soft, non tender, no organomegaly, non distended , no mass Extremities: no cyanosis, no clubbing, other - 2+ NELLIE Laboratory Tests 06/24/18 16:00: D-Dimer 2.19H 06/24/18 17:00: Urine Color Pale yellow, Urine Appearance Clear, Urine pH 7, Urine Specific [place] 1.010, Urine Protein Negative, Urine Glucose (UA) Negative, Urine Ketones Negative, Urine Blood Negative, Urine Nitrite Negative, Urine Bilirubin Negative, Urine Urobilinogen Normal, Urine Leukocyte Esterase Negative, Urine RBC 0-2H, Urine WBC 0, Urine Squamous Epithelial Cells Occasional, Urine Bacteria None 06/25/18 04:26: White Blood Count 3.8L, Red Blood Count 4.43L, Hemoglobin 11.2L, Hematocrit 35.6L, Mean Corpuscular Volume 80, Mean Corpuscular Hemoglobin 25.2L, Mean Corpuscular Hemoglobin Concent 31.4L, Red Cell Distribution Width 14.9H, Platelet Count 198, Mean Platelet Volume 6.9, Neutrophils (%) (Auto) 74.9, Lymphocytes (%) (Auto) 22.8, Monocytes (%) (Auto) 1.6, Eosinophils (%) (Auto) 0.1, Basophils (%) (Auto) 0.6, Sodium Level 138, Potassium Level 4.1, Chloride Level 102, Carbon Dioxide Level 30, Anion Gap 6, Blood Urea Nitrogen 24H, Creatinine 1.1, Estimat Glomerular Filtration Rate > 60, Glucose Level 151H, Hemoglobin A1c 6.0, Uric Acid 7.1, Calcium Level 9.3, Phosphorus Level 4.3, Magnesium Level 1.9, Iron Level 29L, Total Iron Binding Capacity 275, Percent Iron Saturation 11L, Unsaturated Iron Binding 246, Total Bilirubin 0.2, Gamma Glutamyl Transpeptidase 30, Aspartate Amino Transf (AST/SGOT) 30, Alanine Aminotransferase (ALT/SGPT) 39, Alkaline Phosphatase 93, Troponin I 0.006, Pro-B -Type Natriuretic Peptide 326H, Total Protein 7.9, Albumin 2.8L, Globulin 5.1, Albumin/Globulin Ratio 0.5L, Triglycerides Level 21L, Cholesterol Level 182, LDL Cholesterol 114H, HDL Cholesterol 58, Cholesterol/HDL Ratio 3.1L, Vitamin B12 Level 1142H, Thyroid Stimulating Hormone (TSH) 0.227L Current Medications Medications (Trade) Dose Ordered Sig/Virgen Route PRN Reason Start Time Stop Time Status Last Admin Dose Admin Acetaminophen (Tylenol) 650 mg Q4H PRN ORAL Mild Pain/Temp > 100.5 06/24/18 00:00 07/24/18 00:00 Acetaminophen/ Hydrocodone Bitart ([place] 10/325) 1 tab Q4H PRN ORAL For Pain 06/24/18 00:00 07/01/18 00:00 06/25/18 11:51 Albuterol/ Ipratropium (Albuterol/ Ipratropium) 3 ml Q4H PRN HHN Shortness of Breath 06/24/18 00:00 06/29/18 00:00 Albuterol/ Ipratropium (Albuterol/ Ipratropium) 3 ml Q6HRT HHN 06/24/18 19:00 06/29/18 18:59 06/25/18 13:03 Aspirin (ASA) 81 mg DAILY ORAL 06/24/18 09:00 07/24/18 08:59 06/25/18 08:49 Atorvastatin Calcium (Lipitor) 10 mg BEDTIME ORAL 06/24/18 21:00 07/24/18 20:59 06/24/18 20:13 Benazepril HCl (Lotensin) 20 mg BID ORAL 06/24/18 09:00 07/24/18 08:59 06/25/18 08:54 Furosemide (Lasix) 80 mg EVERY 12 HOURS IV 06/24/18 21:00 07/24/18 20:59 06/25/18 08:54 Heparin Sodium (Porcine) (Heparin 5000 units/ml) 5,000 units EVERY 12 HOURS SUBQ 06/24/18 09:00 07/24/18 08:59 Iron Sucrose 100 mg/Sodium Chloride 60 ml @ 240 mls/hr BEDTIME IV 06/26/18 21:00 06/30/18 21:14 Iron Sucrose 200 mg/Sodium Chloride 120 ml @ 240 mls/hr ONCE ONCE IV 06/25/18 15:00 06/25/18 15:29 Methylprednisolone Sodium Succinate (Solu-MEDROL) 40 mg EVERY 12 HOURS IVP 06/24/18 21:00 07/24/18 20:59 06/25/18 08:54 Montelukast Sodium (Singulair) 10 mg QPM ORAL 06/24/18 16:30 07/24/18 16:29 06/24/18 16:48 Salmeterol Xinafoate/ Fluticasone (Advair 250/50 Diskus) 1 puffs BIDRT INH 06/24/18 10:00 12/6/18 09:59 06/25/18 09:40 Rashad Haji MD Jun 25, 2018 13:27
--- NOTE | 2018-06-25 14:30 | Cardiac Electrophysiology PN ---
Assessment/Plan Assessment/Plan 1. Congestive heart failure with diastolic dysfunction. On Lasix 80 mg IV b.i.d. 2. Hypertension. On Lotensin 20 mg and Lasix 3. Hyperlipidemia. On Lipitor. 4. Chronic obstructive pulmonary disease. On Solu-Medrol and Advair. JEANETTE RN Subjective Subjective Feeling better with iv Lasix Objective Last 24 Hour Vital Signs Date Time Temp Pulse Resp B/P (MAP) Pulse Ox O2 Delivery O2 Flow Rate FiO2 06/25/18 13:15 61 19 98 Room Air 21 06/25/18 13:03 59 17 94 Room Air 21 06/25/18 09:00 Room Air 06/25/18 08:54 118/59 06/25/18 08:00 47 06/25/18 08:00 97.1 98 18 123/59 (80) 100 06/25/18 07:41 62 18 98 Room Air 21 06/25/18 07:31 57 17 96 Room Air 21 06/25/18 04:00 97.7 61 18 122/59 (80) 98 06/25/18 03:34 70 06/25/18 02:15 98.6 06/25/18 01:44 64 20 98 Room Air 21 06/25/18 01:32 60 16 Room Air 21 06/25/18 01:31 60 18 95 Room Air 21 06/25/18 00:00 57 06/25/18 00:00 98.6 121 20 123/79 (94) 99 06/24/18 21:00 Room Air 06/24/18 20:41 68 20 97 Room Air 21 06/24/18 20:30 64 18 96 Room Air 21 06/24/18 20:00 98.7 62 20 116/61 (79) 98 06/24/18 20:00 65 06/24/18 17:33 129/38 06/24/18 16:00 98.2 62 20 129/38 (68) 96 06/24/18 16:00 65 Intake and Output 06/24/18 06/25/18 19:00 07:00 Intake Total 1100 ml Output Total 2650 ml 2500 ml Balance -1550 ml -2500 ml Intake Oral 1100 ml Output Urine Total 2650 ml 2500 ml # Voids 10 # Bowel Movements 2 2 Laboratory Tests Test 06/24/18 16:00 06/24/18 17:00 06/25/18 04:26 D-Dimer 2.19 mg/L FEU (0.00-0.49) H Urine Color Pale yellow Urine Appearance Clear Urine pH 7 (4.5-8.0) Urine Specific [place] 1.010 (1.005-1.035) Urine Protein Negative (NEGATIVE) Urine Glucose (UA) Negative (NEGATIVE) Urine Ketones Negative (NEGATIVE) Urine Blood Negative (NEGATIVE) Urine Nitrite Negative (NEGATIVE) Urine Bilirubin Negative (NEGATIVE) Urine Urobilinogen Normal MG/DL (0.0-1.0) Urine Leukocyte Esterase Negative (NEGATIVE) Urine RBC 0-2 /HPF (0 - 0) H Urine WBC 0 /HPF (0 - 0) Urine Squamous Epithelial Cells Occasional /LPF Urine Bacteria None /HPF (NONE) White Blood Count 3.8 K/UL (4.8-10.8) L Red Blood Count 4.43 M/UL (4.70-6.10) L Hemoglobin 11.2 G/DL (14.2-18.0) L Hematocrit 35.6 % (42.0-52.0) L Mean Corpuscular Volume 80 FL (80-99) Mean Corpuscular Hemoglobin 25.2 PG (27.0-31.0) L Mean Corpuscular Hemoglobin Concent 31.4 G/DL (32.0-36.0) L Red Cell Distribution Width 14.9 % (11.6-14.8) H Platelet Count 198 K/UL (150-450) Mean Platelet Volume 6.9 FL (6.5-10.1) Neutrophils (%) (Auto) 74.9 % (45.0-75.0) Lymphocytes (%) (Auto) 22.8 % (20.0-45.0) Monocytes (%) (Auto) 1.6 % (1.0-10.0) Eosinophils (%) (Auto) 0.1 % (0.0-3.0) Basophils (%) (Auto) 0.6 % (0.0-2.0) Sodium Level 138 MMOL/L (136-145) Potassium Level 4.1 MMOL/L (3.5-5.1) Chloride Level 102 MMOL/L (98-107) Carbon Dioxide Level 30 MMOL/L (21-32) Anion Gap 6 mmol/L (5-15) Blood Urea Nitrogen 24 mg/dL (7-18) H Creatinine 1.1 MG/DL (0.55-1.30) Estimat Glomerular Filtration Rate > 60 mL/min (>60) Glucose Level 151 MG/DL (74-106) H Hemoglobin A1c 6.0 % (4.3-6.0) Uric Acid 7.1 MG/DL (2.6-7.2) Calcium Level 9.3 MG/DL (8.5-10.1) Phosphorus Level 4.3 MG/DL (2.5-4.9) Magnesium Level 1.9 MG/DL (1.8-2.4) Iron Level 29 ug/dL (50-175) L Total Iron Binding Capacity 275 ug/dL (250-450) Percent Iron Saturation 11 % (15-50) L Unsaturated Iron Binding 246 ug/dL (112-346) Total Bilirubin 0.2 MG/DL (0.2-1.0) Gamma Glutamyl Transpeptidase 30 U/L (5-85) Aspartate Amino Transf (AST/SGOT) 30 U/L (15-37) Alanine Aminotransferase (ALT/SGPT) 39 U/L (12-78) Alkaline Phosphatase 93 U/L (46-116) Troponin I 0.006 ng/mL (0.000-0.056) Pro-B-Type Natriuretic Peptide 326 pg/mL (0-125) H Total Protein 7.9 G/DL (6.4-8.2) Albumin 2.8 G/DL (3.4-5.0) L Globulin 5.1 g/dL Albumin/Globulin Ratio 0.5 (1.0-2.7) L Triglycerides Level 21 MG/DL (30-150) L Cholesterol Level 182 MG/DL (< 200) LDL Cholesterol 114 mg/dL (<100) H HDL Cholesterol 58 MG/DL (40-60) Cholesterol/HDL Ratio 3.1 (3.3-4.4) L Vitamin B12 Level 1142 PG/ML (193-986) H Thyroid Stimulating Hormone (TSH) 0.227 uiU/mL (0.358-3.740) Objective HEAD AND NECK: Shows mild jugular venous distention. LUNGS: Decreased breath sounds. Coarse rhonchi. CARDIOVASCULAR: Shows regular S1 and S2 with no gallop or murmur. ABDOMEN: Soft. EXTREMITIES: Bilateral 2+ pitting edema. Toluie,Prosper MD Jun 25, 2018 14:30
[2018-06-25] MEDS ORDERED: Iron Sucrose 200 MG in NS 110 ML IV ONE (15:00)
--- NOTE | 2018-06-25 15:42 | Cardiology Report ---
APPROVED REPORT EXAM: Two-dimensional and M-mode echocardiogram with Doppler and color Doppler. INDICATION Congestive Heart Failure M-Mode DIMENSIONS IVSd1.1 (0.7-1.1cm)Left Atrium (MM)4.9 (1.6-4.0cm) LVDd6.0 (3.5-5.6cm)Aortic Root3.0 (2.0-3.7cm) PWd1.3 (0.7-1.1cm)Aortic Cusp Exc.2.2 (1.5-2.0cm) LVDs3.1 (2.5-4.0cm) PWs2.2 cm Mild left ventricular enlargement. Normal left ventricular systolic function and wall motion. Left ventricular ejection fraction estimated to be 60 %. Mild left ventricular hypertrophy. No evidence of pericardial effusion. Mild bi-atrial enlargement. Mild right ventricular enlargement. Focal aortic valve sclerosis with adequate cusp excursion. Thickened mitral valve leaflets with normal excursion. Mild mitral annulus and aortic root calcification. Normal pulmonic valve structure. Normal tricuspid valve structure. IVC dilated at 3.1 cm with physiological collapse, estimated RAP is 20 mmHg. A color flow and spectral Doppler study was performed and revealed: No aortic insufficiency. Trace mitral regurgitation. Mitral diastolic velocities suggest mild left ventricular diastolic dysfunction (Grade I). Trace tricuspid regurgitation. Tricuspid systolic velocities suggests peak right ventricular systolic pressure of 41 mmHg, consistent with mild pulmonary hypertension. Mild pulmonic regurgitation present.
[2018-06-25 16:00] VITALS: BP 125/56
--- NOTE | 2018-06-25 16:51 | General Progress Note ---
Assessment/Plan Problem List: (1) Edema ICD Codes: R60.9 - Edema, unspecified SNOMED: 501466877, 384940136 (2) Anemia, iron deficiency ICD Codes: D50.9 - Iron deficiency anemia, unspecified SNOMED: 67511851 (3) CHF (congestive heart failure) ICD Codes: I50.9 - Heart failure, unspecified SNOMED: 18116011 Status: progressing Assessment/Plan afebrile vitals stable edema chf fluid mangement per cardiology and renal has fluid that needs to be removed Subjective ROS Limited/Unobtainable: Yes Allergies: Coded Allergies: PENICILLINS (Verified Allergy, Unknown, 08/31/17) TRAMADOL (Verified Allergy, Unknown, 08/31/17) Objective Last 24 Hour Vital Signs Date Time Temp Pulse Resp B/P (MAP) Pulse Ox O2 Delivery O2 Flow Rate FiO2 06/25/18 16:00 97.7 60 18 125/56 (79) 99 06/25/18 16:00 55 06/25/18 13:15 61 19 98 Room Air 21 06/25/18 13:03 59 17 94 Room Air 21 06/25/18 12:00 97.7 61 18 135/72 (93) 98 06/25/18 12:00 57 06/25/18 09:00 Room Air 06/25/18 08:54 118/59 06/25/18 08:00 47 06/25/18 08:00 97.1 98 18 123/59 (80) 100 06/25/18 07:41 62 18 98 Room Air 06/25/18 07:31 57 17 96 Room Air 21 06/25/18 04:00 97.7 61 18 122/59 (80) 98 06/25/18 03:34 70 06/25/18 02:15 98.6 06/25/18 01:44 64 20 98 Room Air 21 06/25/18 01:32 60 16 Room Air 21 06/25/18 01:31 60 18 95 Room Air 21 06/25/18 00:00 57 06/25/18 00:00 98.6 121 20 123/79 (94) 99 06/24/18 21:00 Room Air 06/24/18 20:41 68 20 97 Room Air 21 06/24/18 20:30 64 18 96 Room Air 21 06/24/18 20:00 98.7 62 20 116/61 (79) 98 06/24/18 20:00 65 06/24/18 17:33 129/38 Intake and Output 06/24/18 06/25/18 19:00 07:00 Intake Total 1100 ml Output Total 2650 ml 2500 ml Balance -1550 ml -2500 ml Intake Oral 1100 ml Output Urine Total 2650 ml 2500 ml # Voids 10 # Bowel Movements 2 2 Laboratory Tests 06/24/18 17:00: Urine Color Pale yellow, Urine Appearance Clear, Urine pH 7, Urine Specific [place] 1.010, Urine Protein Negative, Urine Glucose (UA) Negative, Urine Ketones Negative, Urine Blood Negative, Urine Nitrite Negative, Urine Bilirubin Negative, Urine Urobilinogen Normal, Urine Leukocyte Esterase Negative, Urine RBC 0-2H, Urine WBC 0, Urine Squamous Epithelial Cells Occasional, Urine Bacteria None 06/25/18 04:26: White Blood Count 3.8L, Red Blood Count 4.43L, Hemoglobin 11.2L, Hematocrit 35.6L, Mean Corpuscular Volume 80, Mean Corpuscular Hemoglobin 25.2L, Mean Corpuscular Hemoglobin Concent 31.4L, Red Cell Distribution Width 14.9H, Platelet Count 198, Mean Platelet Volume 6.9, Neutrophils (%) (Auto) 74.9, Lymphocytes (%) (Auto) 22.8, Monocytes (%) (Auto) 1.6, Eosinophils (%) (Auto) 0.1, Basophils (%) (Auto) 0.6, Sodium Level 138, Potassium Level 4.1, Chloride Level 102, Carbon Dioxide Level 30, Anion Gap 6, Blood Urea Nitrogen 24H, Creatinine 1.1, Estimat Glomerular Filtration Rate > 60, Glucose Level 151H, Hemoglobin A1c 6.0, Uric Acid 7.1, Calcium Level 9.3, Phosphorus Level 4.3, Magnesium Level 1.9, Iron Level 29L, Total Iron Binding Capacity 275, Percent Iron Saturation 11L, Unsaturated Iron Binding 246, Total Bilirubin 0.2, Gamma Glutamyl Transpeptidase 30, Aspartate Amino Transf (AST/SGOT) 30, Alanine Aminotransferase (ALT/SGPT) 39, Alkaline Phosphatase 93, Troponin I 0.006, Pro-B -Type Natriuretic Peptide 326H, Total Protein 7.9, Albumin 2.8L, Globulin 5.1, Albumin/Globulin Ratio 0.5L, Triglycerides Level 21L, Cholesterol Level 182, LDL Cholesterol 114H, HDL Cholesterol 58, Cholesterol/HDL Ratio 3.1L, Vitamin B12 Level 1142H, Thyroid Stimulating Hormone (TSH) 0.227L 06/25/18 14:25: Arterial Blood pH 7.436, Arterial Blood Partial Pressure CO2 43.4, Arterial Blood Partial Pressure O2 72.0L, Arterial Blood HCO3 28.6H, Arterial Blood Oxygen Saturation 94.9L, Arterial Blood Base Excess 3.9H, Travis Test Positive Height (Feet): 6 Height (Inches): 3.00 Weight (Pounds): 319 Cardiovascular: normal rate Respiratory/Chest: lungs clear Abdomen: soft Brittney Shepard MD Jun 25, 2018 16:51
[2018-06-25] MEDS: Montelukast 10mg tablet ORAL SCH (18:19)
[2018-06-25 20:00] VITALS: BP 119/50
[2018-06-26] VITALS: BP 123/79
[2018-06-26] MEDS: HYDROcodone/Acetamin 10/325 tab ORAL PRN ×5 (00:59→23:12)
[2018-06-26] MEDS: Albuterol/Ipratropium 3ml neb HHN SCH ×4 (01:00→20:52)
[2018-06-26 04:00] VITALS: BP 124/68
[2018-06-26 08:00] VITALS: BP 115/65
[2018-06-26] MEDS: Aspirin Baby 81mg ORAL SCH (08:52)
[2018-06-26] MEDS: Heparin 5000 units/ml inj SUBQ SCH ×2 (08:59→20:45)
--- NOTE | 2018-06-26 09:49 | Nephrology Progress Note ---
Assessment/Plan Problem List: (1) Anemia, iron deficiency (2) CHF (congestive heart failure) (3) COPD exacerbation Assessment - CHF (congestive heart failure) - COPD exacerbation - Anemia, iron deficiency - HTN Plan IV Iron pulm support Taper steroids as needed 2D echo ej Fx 60% done previously- re eval- monitor lytes per orders Subjective ROS Limited/Unobtainable: No Constitutional: Reports: weakness Objective Objective Last 24 Hour Vital Signs Date Time Temp Pulse Resp B/P (MAP) Pulse Ox O2 Delivery O2 Flow Rate FiO2 06/26/18 09:00 Room Air 06/26/18 08:54 115/65 06/26/18 08:00 62 06/26/18 08:00 98.1 65 18 115/65 (82) 100 06/26/18 07:40 65 18 98 Room Air 21 06/26/18 07:34 21 06/26/18 07:30 60 18 98 Room Air 21 06/26/18 04:00 98.4 60 20 124/68 (86) 95 06/26/18 04:00 84 06/26/18 01:30 Room Air 21 06/26/18 01:30 Room Air 21 06/26/18 00:00 98.4 83 18 123/79 (94) 100 06/26/18 00:00 61 06/25/18 21:00 Room Air 06/25/18 20:08 65 18 99 Room Air 21 06/25/18 20:00 68 06/25/18 20:00 98.4 65 20 119/50 (73) 95 06/25/18 19:58 62 18 97 Room Air 21 06/25/18 18:55 97.7 06/25/18 18:19 125/56 06/25/18 16:00 97.7 60 18 125/56 (79) 99 06/25/18 16:00 55 06/25/18 13:15 61 19 98 Room Air 21 06/25/18 13:03 59 17 94 Room Air 21 06/25/18 12:00 97.7 61 18 135/72 (93) 98 06/25/18 12:00 57 Intake and Output 06/25/18 06/26/18 19:00 07:00 Intake Total 1160 ml 200 ml Output Total 1300 ml 5025 ml Balance -140 ml -4825 ml Intake Oral 1160 ml 200 ml Output Urine Total 1300 ml 5025 ml # Voids 9 # Bowel Movements 2 2 Laboratory Tests 06/25/18 14:25: Arterial Blood pH 7.436, Arterial Blood Partial Pressure CO2 43.4, Arterial Blood Partial Pressure O2 72.0L, Arterial Blood HCO3 28.6H, Arterial Blood Oxygen Saturation 94.9L, Arterial Blood Base Excess 3.9H, Travis Test Positive Height (Feet): 6 Height (Inches): 3.00 Weight (Pounds): 309 General Appearance: no apparent distress Cardiovascular: normal rate Respiratory/Chest: decreased breath sounds Abdomen: soft Objective no change Jerzy Hardwick MD Jun 26, 2018 09:49
[2018-06-26] MEDS: Solu-MEDROL 40mg Inj IVP SCH (10:14)
[2018-06-26] MEDS: Advair 250/50 Inhaler - 14 dose INH SCH ×2 (10:19→20:52)
--- NOTE | 2018-06-26 10:44 | General Progress Note ---
Assessment/Plan Status: stable Assessment/Plan ASSESSMENT AND RECOMMENDATIONS: #. Anemia due to underlying iron deficiency. The patient on prior admission given IV iron. --> ferritin is reviewed and is 82, TIBC is approx 200, likely iron repleted #. Anemia due to hemodilution with chf overload --> as per cardiology, diuresis is appreciated #. Leukopenia in the past. Hepatitis and HIV is negative. Ultrasound showed no acute findings. Medications have been reviewed. --> Currently wbc is low --> trend as needed --> given neupogen if anc <1000 #. Borderline mediastinal lymphadenopathy, nonspecific etiology. Multiple small right lung nodules. --> Repeat CT scan in 6 to 12 months. #. Congestive heart failure exacerbation versus asthma. as per Dr. Crum. Appreciate cardiology consultation. --> cards and pulm recs reviewed #. Chronic venous stasis lower extremities. #. Chronic obstructive pulmonary disease exacerbation. Shortness of breath. Given steroids and Lasix. #. DVT prophylaxis with heparin. Subjective Date patient seen: Jun 26, 2018 Hematologic/Lymphatic: Reports: anemia Allergies: Coded Allergies: PENICILLINS (Verified Allergy, Unknown, 08/31/17) TRAMADOL (Verified Allergy, Unknown, 08/31/17) All Systems: reviewed and negative except above Subjective Pt awake and alert. No acute events. Objective Last 24 Hour Vital Signs Date Time Temp Pulse Resp B/P (MAP) Pulse Ox O2 Delivery O2 Flow Rate FiO2 06/26/18 09:00 Room Air 06/26/18 08:54 115/65 06/26/18 08:00 62 06/26/18 08:00 98.1 65 18 115/65 (82) 100 06/26/18 07:40 65 18 98 Room Air 21 06/26/18 07:34 21 06/26/18 07:30 60 18 98 Room Air 21 06/26/18 04:00 98.4 60 20 124/68 (86) 95 06/26/18 04:00 84 06/26/18 01:30 Room Air 21 06/26/18 01:30 Room Air 21 06/26/18 00:00 98.4 83 18 123/79 (94) 100 06/26/18 00:00 61 06/25/18 21:00 Room Air 06/25/18 20:08 65 18 99 Room Air 21 06/25/18 20:00 68 06/25/18 20:00 98.4 65 20 119/50 (73) 95 06/25/18 19:58 62 18 97 Room Air 21 06/25/18 18:55 97.7 06/25/18 18:19 125/56 06/25/18 16:00 97.7 60 18 125/56 (79) 99 06/25/18 16:00 55 06/25/18 13:15 61 19 98 Room Air 21 06/25/18 13:03 59 17 94 Room Air 21 06/25/18 12:00 97.7 61 18 135/72 (93) 98 06/25/18 12:00 57 Intake and Output 06/25/18 06/26/18 19:00 07:00 Intake Total 1160 ml 200 ml Output Total 1300 ml 5025 ml Balance -140 ml -4825 ml Intake Oral 1160 ml 200 ml Output Urine Total 1300 ml 5025 ml # Voids 9 # Bowel Movements 2 2 Laboratory Tests 06/25/18 14:25: Arterial Blood pH 7.436, Arterial Blood Partial Pressure CO2 43.4, Arterial Blood Partial Pressure O2 72.0L, Arterial Blood HCO3 28.6H, Arterial Blood Oxygen Saturation 94.9L, Arterial Blood Base Excess 3.9H, Travis Test Positive Height (Feet): 6 Height (Inches): 3.00 Weight (Pounds): 309 General Appearance: no apparent distress Objective PHYSICAL EXAMINATION: VITAL SIGNS: Have been reviewed. HEAD AND NECK: Shows mild jugular venous distention. LUNGS: Decreased breath sounds. Coarse rhonchi. CARDIOVASCULAR: Shows regular S1 and S2 with no gallop or murmur. ABDOMEN: Soft. EXTREMITIES: Bilateral 3+ pitting edema. Kade Fermin MD Jun 26, 2018 10:44
--- NOTE | 2018-06-26 10:46 | Cardiac Electrophysiology PN ---
Assessment/Plan Assessment/Plan 1. Congestive heart failure with diastolic dysfunction.Continue Lasix 80 mg IV b.i.d. 2. Hypertension. On Lotensin 20 mg and Lasix 3. Hyperlipidemia. On Lipitor. 4. Chronic obstructive pulmonary disease. On Solu-Medrol and Advair. JEANETTE RN Subjective Subjective On heavy dose iv Lasix. Diuresing well. Objective Last 24 Hour Vital Signs Date Time Temp Pulse Resp B/P (MAP) Pulse Ox O2 Delivery O2 Flow Rate FiO2 06/26/18 09:00 Room Air 06/26/18 08:54 115/65 06/26/18 08:00 62 06/26/18 08:00 98.1 65 18 115/65 (82) 100 06/26/18 07:40 65 18 98 Room Air 21 06/26/18 07:34 21 06/26/18 07:30 60 18 98 Room Air 21 06/26/18 04:00 98.4 60 20 124/68 (86) 95 06/26/18 04:00 84 06/26/18 01:30 Room Air 21 06/26/18 01:30 Room Air 21 06/26/18 00:00 98.4 83 18 123/79 (94) 100 06/26/18 00:00 61 06/25/18 21:00 Room Air 06/25/18 20:08 65 18 99 Room Air 21 06/25/18 20:00 68 06/25/18 20:00 98.4 65 20 119/50 (73) 95 06/25/18 19:58 62 18 97 Room Air 21 06/25/18 18:55 97.7 06/25/18 18:19 125/56 06/25/18 16:00 97.7 60 18 125/56 (79) 99 06/25/18 16:00 55 06/25/18 13:15 61 19 98 Room Air 21 06/25/18 13:03 59 17 94 Room Air 21 06/25/18 12:00 97.7 61 18 135/72 (93) 98 06/25/18 12:00 57 Intake and Output 06/25/18 06/26/18 19:00 07:00 Intake Total 1160 ml 200 ml Output Total 1300 ml 5025 ml Balance -140 ml -4825 ml Intake Oral 1160 ml 200 ml Output Urine Total 1300 ml 5025 ml # Voids 9 # Bowel Movements 2 2 Laboratory Tests Test 06/25/18 14:25 Arterial Blood pH 7.436 (7.350-7.450) Arterial Blood Partial Pressure CO2 43.4 mmHg (35.0-45.0) Arterial Blood Partial Pressure O2 72.0 mmHg (75.0-100.0) L Arterial Blood HCO3 28.6 mmol/L (22.0-26.0) H Arterial Blood Oxygen Saturation 94.9 % (95-100) L Arterial Blood Base Excess 3.9 (-2-2) H Travis Test Positive Objective HEAD AND NECK: Shows mild jugular venous distention. LUNGS: Decreased breath sounds. Coarse rhonchi. CARDIOVASCULAR: Shows regular S1 and S2 with no gallop or murmur. ABDOMEN: Soft. EXTREMITIES: Bilateral 2+ pitting edema. Prosper Crum MD Jun 26, 2018 10:46
[2018-06-26 12:00] VITALS: BP 119/62
[2018-06-26 16:00] VITALS: BP 117/62
[2018-06-26] MEDS: Montelukast 10mg tablet ORAL SCH (17:02)
--- NOTE | 2018-06-26 18:30 | Pulmonology Progress Note ---
Assessment/Plan Assessment/Plan ASSESSMENT: The patient is a 62-year-old male, lifelong nonsmoker with aahistory of congestive heart failure with diastolic dysfunction, pulmonary hypertension, obesity, likely obstructive sleep apnea, known pulmonary nodules, anemia and asthma, presenting with shortness of breath likely secondary to a combination of decompensated heart failure and an exacerbation of his underlying asthma. PROBLEM LIST: 1. Shortness of breath likely secondary to decompensated heart failure and asthma. 2. Asthma with acute exacerbation. 3. CHF with diastolic dysfunction, acute exacerbation. 4. Bilateral lower extremity edema, likely secondary to above. 5. Known scattered bilateral subcentimeter nodules, stable on follow-up imaging with stable lymphadenopathy. 6. Pulmonary HTN 7. Anemia. 8. Hypertension. 9. Obesity. 10. Likely THERON. 11. Elevated D-dimer with a negative duplex and low probability VQ TREATMENT PLAN: 1. Optimize pulmonary hygiene/mobilize as tolerated. 2. P.r.n. O2 to keep saturations greater than 90%. 3. Buetv-rbu-kcrke and p.r.n. bronchodilators. 4. D/C SM, start Pred 40 and taper 5. Observe off antibiotics. 6. Monitor volumes, diurese to keep negative as tolerated. 7. F/U cardiology recommendations 8. Continue to follow up with [facility] per the patient. I have advised him to take a copy of his CT's and TTE's to [facility]. It is unclear what kind of pulmonary work up he has had in the past but he needs to have PTF's, PST and a PH w/u (possible RHC) if not already done. He also needs surveillance imaging of his chest CT findings. He states his outpatient services director @ [facility] is aware and is following him regularly. 9. DVT prophylaxis, heparin subcutaneous. 10. Weight-loss diet and exercise discussed again. Subjective Allergies: Coded Allergies: PENICILLINS (Verified Allergy, Unknown, 08/31/17) TRAMADOL (Verified Allergy, Unknown, 08/31/17) Subjective -4.9L, AFVSS, on RA Less SOB, no cough, no SOB, no wheezing, less NELLIE, no FC Objective Last 24 Hour Vital Signs Date Time Temp Pulse Resp B/P (MAP) Pulse Ox O2 Delivery O2 Flow Rate FiO2 06/26/18 17:02 117/62 06/26/18 16:00 67 06/26/18 16:00 98.1 60 18 117/62 (80) 96 06/26/18 15:08 97.6 06/26/18 14:20 64 16 98 Room Air 21 06/26/18 14:12 21 06/26/18 14:09 65 16 97 Room Air 21 06/26/18 12:00 59 06/26/18 12:00 97.6 57 18 119/62 (81) 97 06/26/18 09:00 Room Air 06/26/18 08:54 115/65 06/26/18 08:00 62 06/26/18 08:00 98.1 65 18 115/65 (82) 100 06/26/18 07:40 65 18 98 Room Air 21 06/26/18 07:34 21 06/26/18 07:30 60 18 98 Room Air 21 06/26/18 04:00 98.4 60 20 124/68 (86) 95 06/26/18 04:00 84 06/26/18 01:30 Room Air 21 06/26/18 01:30 Room Air 21 06/26/18 00:00 98.4 83 18 123/79 (94) 100 06/26/18 00:00 61 06/25/18 21:00 Room Air 06/25/18 20:08 65 18 99 Room Air 21 06/25/18 20:00 68 06/25/18 20:00 98.4 65 20 119/50 (73) 95 06/25/18 19:58 62 18 97 Room Air 21 Intake and Output 06/25/18 06/26/18 19:00 07:00 Intake Total 1160 ml 200 ml Output Total 1300 ml 5025 ml Balance -140 ml -4825 ml Intake Oral 1160 ml 200 ml Output Urine Total 1300 ml 5025 ml # Voids 9 # Bowel Movements 2 2 General Appearance: WD/WN, no acute distress, other - morbid obesity HEENT: normocephalic, atraumatic, anicteric, mucous membranes moist Respiratory/Chest: lungs clear Cardiovascular: normal peripheral pulses, normal rate, regular rhythm Abdomen: normal bowel sounds, soft, non tender, no organomegaly, non distended , no mass Extremities: no cyanosis, no clubbing, other - 2+ NELLIE Current Medications Medications (Trade) Dose Ordered Sig/Virgen Route PRN Reason Start Time Stop Time Status Last Admin Dose Admin Acetaminophen (Tylenol) 650 mg Q4H PRN ORAL Mild Pain/Temp > 100.5 06/24/18 00:00 07/24/18 00:00 Acetaminophen/ Hydrocodone Bitart ([place] 10/325) 1 tab Q4H PRN ORAL For Pain 06/24/18 00:00 07/01/18 00:00 06/26/18 14:38 Albuterol/ Ipratropium (Albuterol/ Ipratropium) 3 ml Q4H PRN HHN Shortness of Breath 06/24/18 00:00 06/29/18 00:00 Albuterol/ Ipratropium (Albuterol/ Ipratropium) 3 ml Q6HRT HHN 06/24/18 19:00 06/29/18 18:59 06/26/18 14:09 Aspirin (ASA) 81 mg DAILY ORAL 06/24/18 09:00 07/24/18 08:59 06/26/18 08:52 Atorvastatin Calcium (Lipitor) 10 mg BEDTIME ORAL 06/24/18 21:00 07/24/18 20:59 06/25/18 20:20 Benazepril HCl (Lotensin) 20 mg BID ORAL 06/24/18 09:00 07/24/18 08:59 06/26/18 17:02 Docusate Sodium (Colace) 100 mg TWICE A DAY ORAL 06/27/18 09:00 07/27/18 08:59 UNV Furosemide (Lasix) 80 mg EVERY 12 HOURS IV 06/24/18 21:00 07/24/18 20:59 06/26/18 10:14 Heparin Sodium (Porcine) (Heparin 5000 units/ml) 5,000 units EVERY 12 HOURS SUBQ 06/24/18 09:00 07/24/18 08:59 Iron Sucrose 100 mg/Sodium Chloride 60 ml @ 240 mls/hr BEDTIME IV 06/26/18 21:00 06/30/18 21:14 Methylprednisolone Sodium Succinate (Solu-MEDROL) 30 mg EVERY 12 HOURS IVP 06/25/18 21:00 07/24/18 20:59 06/26/18 10:14 Montelukast Sodium (Singulair) 10 mg QPM ORAL 06/24/18 16:30 07/24/18 16:29 06/26/18 17:02 Salmeterol Xinafoate/ Fluticasone (Advair 250/50 Diskus) 1 puffs BIDRT INH 06/24/18 10:00 07/24/18 09:59 06/26/18 10:19 Rashad Haji MD Jun 26, 2018 18:30
[2018-06-26 20:00] VITALS: BP 127/61
[2018-06-26] MEDS: Iron Sucrose 100 MG in NS 55 ML IV SCH (20:44)
--- NOTE | 2018-06-26 21:38 | General Progress Note ---
Assessment/Plan Problem List: (1) Edema ICD Codes: R60.9 - Edema, unspecified SNOMED: 400548724, [id number] (2) Anemia, iron deficiency ICD Codes: D50.9 - Iron deficiency anemia, unspecified SNOMED: 68241234 (3) CHF (congestive heart failure) ICD Codes: I50.9 - Heart failure, unspecified SNOMED: 69294155 Status: progressing Assessment/Plan reviewed chart and labs moniter lytes carefully edema chf fluid mangement per cardiology and renal has fluid that needs to be removed Subjective ROS Limited/Unobtainable: Yes Allergies: Coded Allergies: PENICILLINS (Verified Allergy, Unknown, 08/31/17) TRAMADOL (Verified Allergy, Unknown, 08/31/17) Objective Last 24 Hour Vital Signs Date Time Temp Pulse Resp B/P (MAP) Pulse Ox O2 Delivery O2 Flow Rate FiO2 06/26/18 21:01 60 20 99 Room Air 21 06/26/18 20:53 64 20 98 Room Air 21 06/26/18 19:03 98.1 06/26/18 17:02 117/62 06/26/18 16:00 67 06/26/18 16:00 98.1 60 18 117/62 (80) 96 06/26/18 14:20 64 16 98 Room Air 21 06/26/18 14:12 21 06/26/18 14:09 65 16 97 Room Air 21 06/26/18 12:00 59 06/26/18 12:00 97.6 57 18 119/62 (81) 97 06/26/18 09:00 Room Air 06/26/18 08:54 115/65 06/26/18 08:00 62 06/26/18 08:00 98.1 65 18 115/65 (82) 100 06/26/18 07:40 65 18 98 Room Air 21 06/26/18 07:34 21 06/26/18 07:30 60 18 98 Room Air 21 06/26/18 04:00 98.4 60 20 124/68 (86) 95 06/26/18 04:00 84 06/26/18 01:30 Room Air 21 06/26/18 01:30 Room Air 21 06/26/18 00:00 98.4 83 18 123/79 (94) 100 06/26/18 00:00 61 Intake and Output 06/25/18 06/26/18 18:59 06:59 Intake Total 1160 ml 200 ml Output Total 1300 ml 5025 ml Balance -140 ml -4825 ml Intake Oral 1160 ml 200 ml Output Urine Total 1300 ml 5025 ml # Voids 9 # Bowel Movements 2 2 Height (Feet): 6 Height (Inches): 3.00 Weight (Pounds): 309 Cardiovascular: normal rate Respiratory/Chest: lungs clear Abdomen: no organomegaly Brittney Shepard MD Jun 26, 2018 21:38
[2018-06-27] VITALS: BP 135/66
[2018-06-27] MEDS: Albuterol/Ipratropium 3ml neb HHN SCH ×4 (01:00→20:16)
[2018-06-27 04:00] VITALS: BP 129/84
[2018-06-27] MEDS: HYDROcodone/Acetamin 10/325 tab ORAL PRN ×5 (04:15→20:31)
[2018-06-27 05:31] LABS: BASOPHILS % (AUTO) 1.6 % (0.0-2.0); EOSINOPHILS % (AUTO) 2.3 % (0.0-3.0); HEMATOCRIT 36.3 % (42.0-52.0); HEMOGLOBIN 11.6 G/DL (14.2-18.0); MEAN CORPUSCULAR VOLUME 80 FL (80-99); MONOCYTES % (AUTO) 10.5 % (1.0-10.0); NEUTROPHILS % (AUTO) 48.5 % (45.0-75.0); PLATELET COUNT 239 K/UL (150-450); RED BLOOD COUNT 4.55 M/UL (4.70-6.10); RED CELL DISTRIBUTION WIDTH 15.3 % (11.6-14.8); WHITE BLOOD COUNT 9.3 K/UL (4.8-10.8)
[2018-06-27 05:53] LABS: ALANINE AMINOTRANSFERASE 32 U/L (12-78); ALBUMIN/GLOBULIN RATIO 0.6 (1.0-2.7); ALKALINE PHOSPHATASE 86 U/L (46-116); ANION GAP 3 mmol/L (5-15); ASPARTATE AMINO TRANSFERASE 18 U/L (15-37); BILIRUBIN,TOTAL 0.2 MG/DL (0.2-1.0); BLOOD UREA NITROGEN 35 mg/dL (7-18); CALCIUM 7.8 MG/DL (8.5-10.1); CARBON DIOXIDE 35 MMOL/L (21-32); CHLORIDE 100 MMOL/L (98-107); CREATININE 1.2 MG/DL (0.55-1.30); PHOSPHORUS 3.5 MG/DL (2.5-4.9); POTASSIUM 3.8 MMOL/L (3.5-5.1); SODIUM 138 MMOL/L (136-145)
--- NOTE | 2018-06-27 06:20 | General Progress Note ---
Assessment/Plan Assessment/Plan ASSESSMENT AND RECOMMENDATIONS: #. Anemia due to underlying iron deficiency. The patient on prior admission given IV iron. --> ferritin is reviewed and is 82, TIBC is approx 200, likely iron repleted --> monitor and trend as needed cbc #. Anemia due to hemodilution with chf overload --> as per cardiology, diuresis is appreciated #. Leukopenia in the past. Hepatitis and HIV is negative. --> Ultrasound showed no acute findings. Medications have been reviewed. --> Currently wbc is low --> trend as needed --> given neupogen if anc <1000 #. Borderline mediastinal lymphadenopathy, nonspecific etiology. Multiple small right lung nodules. --> Repeat CT scan in 6 to 12 months. #. Congestive heart failure exacerbation versus asthma. as per Dr. Crum. Appreciate cardiology consultation. --> cards and pulm recs reviewed #. Chronic venous stasis lower extremities. #. Chronic obstructive pulmonary disease exacerbation. Shortness of breath. Given steroids and Lasix. #. DVT prophylaxis with heparin. Appreciate consultation greatly! Subjective Constitutional: Denies: no symptoms, chills, diaphoresis, fever, malaise, weakness, other HEENT: Denies: no symptoms, eye pain, blurred vision, tearing, double vision, ear pain, ear discharge, nose pain, nose congestion, throat pain, throat swelling, mouth pain, mouth swelling, other Cardiovascular: Denies: no symptoms, chest pain, edema, irregular heart rate, lightheadedness, palpitations, syncope, other Respiratory: Denies: no symptoms, cough, orthopnea, shortness of breath, SOB with excertion, SOB at rest, sputum, stridor, wheezing, other Gastrointestinal/Abdominal: Denies: no symptoms, abdomen distended, abdominal pain, black stools, tarry stools, blood in stool, constipated, diarrhea, difficulty swallowing, nausea, poor appetite, poor fluid intake, rectal bleeding , vomiting, other Genitourinary: Denies: no symptoms, burning, discharge, frequency, flank pain, hematuria, incontinence, pain, urgency, other Neurologic/Psychiatric: Denies: no symptoms, anxiety, depressed, emotional problems, headache, numbness, paresthesia, pre-existing deficit, seizure, tingling, tremors, weakness, other Allergies: Coded Allergies: PENICILLINS (Verified Allergy, Unknown, 08/31/17) TRAMADOL (Verified Allergy, Unknown, 08/31/17) Subjective Pt awake and alert. No acute events. On diuresis. Objective Last 24 Hour Vital Signs Date Time Temp Pulse Resp B/P (MAP) Pulse Ox O2 Delivery O2 Flow Rate FiO2 06/27/18 04:00 98.6 59 20 129/84 (99) 98 06/27/18 04:00 48 06/27/18 01:29 Room Air 21 06/27/18 01:28 Room Air 21 06/27/18 00:00 56 06/27/18 00:00 98.8 61 20 135/66 (89) 94 06/26/18 21:01 60 20 99 Room Air 21 06/26/18 21:00 Room Air 06/26/18 20:53 64 20 98 Room Air 21 06/26/18 20:00 66 06/26/18 20:00 98.9 63 21 127/61 (83) 95 06/26/18 19:03 98.1 06/26/18 17:02 117/62 06/26/18 16:00 67 06/26/18 16:00 98.1 60 18 117/62 (80) 96 06/26/18 14:20 64 16 98 Room Air 21 06/26/18 14:12 21 06/26/18 14:09 65 16 97 Room Air 21 06/26/18 12:00 59 06/26/18 12:00 97.6 57 18 119/62 (81) 97 06/26/18 09:00 Room Air 06/26/18 08:54 115/65 06/26/18 08:00 62 06/26/18 08:00 98.1 65 18 115/65 (82) 100 06/26/18 07:40 65 18 98 Room Air 21 06/26/18 07:34 21 06/26/18 07:30 60 18 98 Room Air 21 Intake and Output 06/26/18 06/27/18 19:00 07:00 Intake Total 600 ml Output Total 1400 ml 2100 ml Balance -800 ml -2100 ml Intake Oral 600 ml Output Urine Total 1400 ml 2100 ml Laboratory Tests 06/27/18 05:08: White Blood Count 9.3, Red Blood Count 4.55L, Hemoglobin 11.6L, Hematocrit 36.3L , Mean Corpuscular Volume 80, Mean Corpuscular Hemoglobin 25.4L, Mean Corpuscular Hemoglobin Concent 31.9L, Red Cell Distribution Width 15.3H, Platelet Count 239, Mean Platelet Volume 7.6, Neutrophils (%) (Auto) 48.5, Lymphocytes (%) (Auto) 37.0, Monocytes (%) (Auto) 10.5H, Eosinophils (%) (Auto) 2.3, Basophils (%) (Auto) 1.6, Sodium Level 138, Potassium Level 3.8, Chloride Level 100, Carbon Dioxide Level 35H, Anion Gap 3L, Blood Urea Nitrogen 35H, Creatinine 1.2, Estimat Glomerular Filtration Rate > 60, Glucose Level 105, Uric Acid 7.4H, Calcium Level 7.8L, Phosphorus Level 3.5, Magnesium Level 2.1, Total Bilirubin 0.2, Aspartate Amino Transf (AST/SGOT) 18, Alanine Aminotransferase (ALT/SGPT) 32, Alkaline Phosphatase 86, C-Reactive Protein, Quantitative < 0.4, Pro-B-Type Natriuretic Peptide 205H, Total Protein 8.1, Albumin 3.0L, Globulin 5.1, Albumin/Globulin Ratio 0.6L Height (Feet): 6 Height (Inches): 3.00 Weight (Pounds): 308 Objective PHYSICAL EXAMINATION: VITAL SIGNS: Have been reviewed. HEAD AND NECK: Shows mild jugular venous distention. LUNGS: Decreased breath sounds. Coarse rhonchi. CARDIOVASCULAR: Shows regular S1 and S2 with no gallop or murmur. ABDOMEN: Soft. EXTREMITIES: Bilateral 2+ pitting edema. Kade Fermin MD Jun 27, 2018 06:19
[2018-06-27 08:00] VITALS: BP 114/60
[2018-06-27] MEDS: Aspirin Baby 81mg ORAL SCH (08:30)
[2018-06-27] MEDS: Docusate 100mg cap ORAL SCH ×2 (08:30→17:17)
[2018-06-27] MEDS: Heparin 5000 units/ml inj SUBQ SCH ×2 (08:48→20:33)
--- NOTE | 2018-06-27 09:14 | Nephrology Progress Note ---
Assessment/Plan Problem List: (1) Anemia, iron deficiency (2) CHF (congestive heart failure) (3) COPD exacerbation Assessment - CHF (congestive heart failure) - COPD exacerbation - Anemia, iron deficiency - HTN Plan IV Iron- pulm support Taper steroids as needed 2D echo ej Fx 60% done previously- re eval- monitor lytes per orders Subjective ROS Limited/Unobtainable: No Objective Objective Last 24 Hour Vital Signs Date Time Temp Pulse Resp B/P (MAP) Pulse Ox O2 Delivery O2 Flow Rate FiO2 06/27/18 08:32 114/60 06/27/18 07:42 68 18 99 Room Air 21 06/27/18 07:36 64 18 96 Room Air 21 06/27/18 04:00 98.6 59 20 129/84 (99) 98 06/27/18 04:00 48 06/27/18 01:29 Room Air 21 06/27/18 01:28 Room Air 21 06/27/18 00:00 56 06/27/18 00:00 98.8 61 20 135/66 (89) 94 06/26/18 21:01 60 20 99 Room Air 21 06/26/18 21:00 Room Air 06/26/18 20:53 64 20 98 Room Air 21 06/26/18 20:00 66 06/26/18 20:00 98.9 63 21 127/61 (83) 95 06/26/18 19:03 98.1 06/26/18 17:02 117/62 06/26/18 16:00 67 06/26/18 16:00 98.1 60 18 117/62 (80) 96 06/26/18 14:20 64 16 98 Room Air 21 06/26/18 14:12 21 06/26/18 14:09 65 16 97 Room Air 21 06/26/18 12:00 59 06/26/18 12:00 97.6 57 18 119/62 (81) 97 Intake and Output 06/26/18 06/27/18 19:00 07:00 Intake Total 600 ml Output Total 1400 ml 2100 ml Balance -800 ml -2100 ml Intake Oral 600 ml Output Urine Total 1400 ml 2100 ml Laboratory Tests 06/27/18 05:08: White Blood Count 9.3, Red Blood Count 4.55L, Hemoglobin 11.6L, Hematocrit 36.3L , Mean Corpuscular Volume 80, Mean Corpuscular Hemoglobin 25.4L, Mean Corpuscular Hemoglobin Concent 31.9L, Red Cell Distribution Width 15.3H, Platelet Count 239, Mean Platelet Volume 7.6, Neutrophils (%) (Auto) 48.5, Lymphocytes (%) (Auto) 37.0, Monocytes (%) (Auto) 10.5H, Eosinophils (%) (Auto) 2.3, Basophils (%) (Auto) 1.6, Sodium Level 138, Potassium Level 3.8, Chloride Level 100, Carbon Dioxide Level 35H, Anion Gap 3L, Blood Urea Nitrogen 35H, Creatinine 1.2, Estimat Glomerular Filtration Rate > 60, Glucose Level 105, Uric Acid 7.4H, Calcium Level 7.8L, Phosphorus Level 3.5, Magnesium Level 2.1, Total Bilirubin 0.2, Aspartate Amino Transf (AST/SGOT) 18, Alanine Aminotransferase (ALT/SGPT) 32, Alkaline Phosphatase 86, C-Reactive Protein, Quantitative < 0.4, Pro-B-Type Natriuretic Peptide 205H, Total Protein 8.1, Albumin 3.0L, Globulin 5.1, Albumin/Globulin Ratio 0.6L Height (Feet): 6 Height (Inches): 3.00 Weight (Pounds): 308 General Appearance: no apparent distress Objective no change Jerzy Hardwick MD Jun 27, 2018 09:14
[2018-06-27] MEDS: Advair 250/50 Inhaler - 14 dose INH SCH ×2 (11:45→20:16)
[2018-06-27 12:00] VITALS: BP 133/61
--- NOTE | 2018-06-27 13:24 | Cardiac Electrophysiology PN ---
Assessment/Plan Assessment/Plan 1. Congestive heart failure with diastolic dysfunction.On Lasix 80 mg IV b.i.d. 2. Hypertension. On Lotensin 20 mg and iv Lasix 3. Hyperlipidemia. On Lipitor. 4. Chronic obstructive pulmonary disease. On prednisone 30 daily and Advair. JEANETTE RN Subjective Subjective . Diuresing well on heavy Lasix dose of 80 iv bid. Objective Last 24 Hour Vital Signs Date Time Temp Pulse Resp B/P (MAP) Pulse Ox O2 Delivery O2 Flow Rate FiO2 06/27/18 12:00 98.0 56 20 133/61 (85) 98 06/27/18 09:01 98.6 06/27/18 09:00 Room Air 06/27/18 08:32 114/60 06/27/18 08:00 61 06/27/18 08:00 98.2 63 20 114/60 (78) 96 06/27/18 07:42 68 18 99 Room Air 21 06/27/18 07:36 64 18 96 Room Air 21 06/27/18 04:00 98.6 59 20 129/84 (99) 98 06/27/18 04:00 48 06/27/18 01:29 Room Air 21 06/27/18 01:28 Room Air 21 06/27/18 00:00 56 06/27/18 00:00 98.8 61 20 135/66 (89) 94 06/26/18 21:01 60 20 99 Room Air 21 06/26/18 21:00 Room Air 06/26/18 20:53 64 20 98 Room Air 21 06/26/18 20:00 66 06/26/18 20:00 98.9 63 21 127/61 (83) 95 06/26/18 17:02 117/62 06/26/18 16:00 67 06/26/18 16:00 98.1 60 18 117/62 (80) 96 06/26/18 14:20 64 16 98 Room Air 21 06/26/18 14:12 21 06/26/18 14:09 65 16 97 Room Air 21 Intake and Output 06/26/18 06/27/18 19:00 07:00 Intake Total 600 ml Output Total 1400 ml 2100 ml Balance -800 ml -2100 ml Intake Oral 600 ml Output Urine Total 1400 ml 2100 ml Laboratory Tests Test 06/27/18 05:08 White Blood Count 9.3 K/UL (4.8-10.8) Red Blood Count 4.55 M/UL (4.70-6.10) L Hemoglobin 11.6 G/DL (14.2-18.0) L Hematocrit 36.3 % (42.0-52.0) L Mean Corpuscular Volume 80 FL (80-99) Mean Corpuscular Hemoglobin 25.4 PG (27.0-31.0) L Mean Corpuscular Hemoglobin Concent 31.9 G/DL (32.0-36.0) L Red Cell Distribution Width 15.3 % (11.6-14.8) H Platelet Count 239 K/UL (150-450) Mean Platelet Volume 7.6 FL (6.5-10.1) Neutrophils (%) (Auto) 48.5 % (45.0-75.0) Lymphocytes (%) (Auto) 37.0 % (20.0-45.0) Monocytes (%) (Auto) 10.5 % (1.0-10.0) H Eosinophils (%) (Auto) 2.3 % (0.0-3.0) Basophils (%) (Auto) 1.6 % (0.0-2.0) Sodium Level 138 MMOL/L (136-145) Potassium Level 3.8 MMOL/L (3.5-5.1) Chloride Level 100 MMOL/L (98-107) Carbon Dioxide Level 35 MMOL/L (21-32) H Anion Gap 3 mmol/L (5-15) L Blood Urea Nitrogen 35 mg/dL (7-18) H Creatinine 1.2 MG/DL (0.55-1.30) Estimat Glomerular Filtration Rate > 60 mL/min (>60) Glucose Level 105 MG/DL (74-106) Uric Acid 7.4 MG/DL (2.6-7.2) H Calcium Level 7.8 MG/DL (8.5-10.1) L Phosphorus Level 3.5 MG/DL (2.5-4.9) Magnesium Level 2.1 MG/DL (1.8-2.4) Total Bilirubin 0.2 MG/DL (0.2-1.0) Aspartate Amino Transf (AST/SGOT) 18 U/L (15-37) Alanine Aminotransferase (ALT/SGPT) 32 U/L (12-78) Alkaline Phosphatase 86 U/L (46-116) C-Reactive Protein, Quantitative < 0.4 mg/dL (0.00-0.90) Pro-B-Type Natriuretic Peptide 205 pg/mL (0-125) H Total Protein 8.1 G/DL (6.4-8.2) Albumin 3.0 G/DL (3.4-5.0) L Globulin 5.1 g/dL Albumin/Globulin Ratio 0.6 (1.0-2.7) L Objective HEAD AND NECK: Shows mild jugular venous distention. LUNGS: Decreased breath sounds. Coarse rhonchi. CARDIOVASCULAR: Shows regular S1 and S2 with no gallop or murmur. ABDOMEN: Soft. EXTREMITIES: Bilateral 2+ pitting edema. Prosper Crum MD Jun 27, 2018 13:24
--- NOTE | 2018-06-27 13:42 | Pulmonology Progress Note ---
Assessment/Plan Assessment/Plan Assessment/Plan ASSESSMENT: The patient is a 62-year-old male, lifelong nonsmoker with a history of congestive heart failure with diastolic dysfunction, pulmonary hypertension, obesity, likely obstructive sleep apnea, known pulmonary nodules, anemia and asthma, presenting with shortness of breath likely secondary to a combination of decompensated heart failure and an exacerbation of his underlying asthma. PROBLEM LIST: 1. Shortness of breath likely secondary to decompensated heart failure and asthma. 2. Asthma with acute exacerbation. 3. CHF with diastolic dysfunction, acute exacerbation. 4. Bilateral lower extremity edema, likely secondary to above. 5. Known scattered bilateral subcentimeter nodules, stable on follow-up imaging with stable lymphadenopathy. 6. Pulmonary HTN 7. Anemia. 8. Hypertension. 9. Obesity. 10. Likely THERON. 11. Elevated D-dimer with a negative duplex and low probability VQ TREATMENT PLAN: 1. Optimize pulmonary hygiene/mobilize as tolerated. 2. P.r.n. O2 to keep saturations greater than 90%. 3. Hnckw-nzf-nwkco and p.r.n. bronchodilators. 4. Decrease Solu-Medrol to 30 IV b.i.d. and taper. 5. Observe off antibiotics. 6. Monitor volumes, diurese to keep negative as tolerated. 7. ABG. 8. F/U cardiology recommendations 9. Continue to follow up with [facility] per the patient. I have advised him to take a copy of his CT's and TTE's to [facility]. It is unclear what kind of pulmonary work up he has had in the past but he needs to have PTF's, PST and a PH w/u (possible RHC) if not already done. He also needs surveillance imaging of his chest CT findings. He states his scalehouse attendant @ [facility] is aware and is following him regularly. 10. DVT prophylaxis, heparin subcutaneous. 11. Weight-loss diet and exercise discussed again. Subjective Allergies: Coded Allergies: PENICILLINS (Verified Allergy, Unknown, 08/31/17) TRAMADOL (Verified Allergy, Unknown, 08/31/17) Subjective -4L, AFVSS, on RA TTE noted D-dimer elevated, duplex and VQ negative Less SOB, no cough, no SOB, no wheezing, less NELLIE, no FC Objective Vital Signs Noted General Appearance: no acute distress, other - obese male HEENT: normocephalic, atraumatic, anicteric, mucous membranes moist Respiratory/Chest: chest wall non-tender, lungs clear, normal breath sounds, no respiratory distress, no accessory muscle use Cardiovascular: normal peripheral pulses, normal rate, regular rhythm Abdomen: normal bowel sounds, soft, non tender, no organomegaly, non distended , no mass Extremities: no cyanosis, no clubbing, other - 2+ NELLIE Laboratory Tests 06/24/18 16:00: D-Dimer 2.19H 06/24/18 17:00: Urine Color Pale yellow, Urine Appearance Clear, Urine pH 7, Urine Specific Dixon 1.010, Urine Protein Negative, Urine Glucose (UA) Negative, Urine Ketones Negative, Urine Blood Negative, Urine Nitrite Negative, Urine Bilirubin Negative, Urine Urobilinogen Normal, Urine Leukocyte Esterase Negative, Urine RBC 0-2H, Urine WBC 0, Urine Squamous Epithelial Cells Occasional, Urine Bacteria None 06/25/18 04:26: White Blood Count 3.8L, Red Blood Count 4.43L, Hemoglobin 11.2L, Hematocrit 35.6L, Mean Corpuscular Volume 80, Mean Corpuscular Hemoglobin 25.2L, Mean Corpuscular Hemoglobin Concent 31.4L, Red Cell Distribution Width 14.9H, Platelet Count 198, Mean Platelet Volume 6.9, Neutrophils (%) (Auto) 74.9, Lymphocytes (%) (Auto) 22.8, Monocytes (%) (Auto) 1.6, Eosinophils (%) (Auto) 0.1, Basophils (%) (Auto) 0.6, Sodium Level 138, Potassium Level 4.1, Chloride Level 102, Carbon Dioxide Level 30, Anion Gap 6, Blood Urea Nitrogen 24H, Creatinine 1.1, Estimat Glomerular Filtration Rate > 60, Glucose Level 151H, Hemoglobin A1c 6.0, Uric Acid 7.1, Calcium Level 9.3, Phosphorus Level 4.3, Magnesium Level 1.9, Iron Level 29L, Total Iron Binding Capacity 275, Percent Iron Saturation 11L, Unsaturated Iron Binding 246, Total Bilirubin 0.2, Gamma Glutamyl Transpeptidase 30, Aspartate Amino Transf (AST/SGOT) 30, Alanine Aminotransferase (ALT/SGPT) 39, Alkaline Phosphatase 93, Troponin I 0.006, Pro-B -Type Natriuretic Peptide 326H, Total Protein 7.9, Albumin 2.8L, Globulin 5.1, Albumin/Globulin Ratio 0.5L, Triglycerides Level 21L, Cholesterol Level 182, LDL Cholesterol 114H, HDL Cholesterol 58, Cholesterol/HDL Ratio 3.1L, Vitamin B12 Level 1142H, Thyroid Stimulating Hormone (TSH) 0.227L Current Medications Medications (Trade) Dose Ordered Sig/Virgen Route PRN Reason Start Time Stop Time Status Last Admin Dose Admin Acetaminophen (Tylenol) 650 mg Q4H PRN ORAL Mild Pain/Temp > 100.5 06/24/18 00:00 07/24/18 00:00 Acetaminophen/ Hydrocodone Bitart ([place] 10/325) 1 tab Q4H PRN ORAL For Pain 06/24/18 00:00 07/01/18 00:00 06/25/18 11:51 Albuterol/ Ipratropium (Albuterol/ Ipratropium) 3 ml Q4H PRN HHN Shortness of Breath 06/24/18 00:00 06/29/18 00:00 Albuterol/ Ipratropium (Albuterol/ Ipratropium) 3 ml Q6HRT HHN 06/24/18 19:00 06/29/18 18:59 06/25/18 13:03 Aspirin (ASA) 81 mg DAILY ORAL 06/24/18 09:00 07/24/18 08:59 06/25/18 08:49 Atorvastatin Calcium (Lipitor) 10 mg BEDTIME ORAL 06/24/18 21:00 07/24/18 20:59 06/24/18 20:13 Benazepril HCl (Lotensin) 20 mg BID ORAL 06/24/18 09:00 07/24/18 08:59 06/25/18 08:54 Furosemide (Lasix) 80 mg EVERY 12 HOURS IV 06/24/18 21:00 07/24/18 20:59 06/25/18 08:54 Heparin Sodium (Porcine) (Heparin 5000 units/ml) 5,000 units EVERY 12 HOURS SUBQ 06/24/18 09:00 07/24/18 08:59 Iron Sucrose 100 mg/Sodium Chloride 60 ml @ 240 mls/hr BEDTIME IV 06/26/18 21:00 06/30/18 21:14 Iron Sucrose 200 mg/Sodium Chloride 120 ml @ 240 mls/hr ONCE ONCE IV 06/25/18 15:00 06/25/18 15:29 Methylprednisolone Sodium Succinate (Solu-MEDROL) 40 mg EVERY 12 HOURS IVP 06/24/18 21:00 07/24/18 20:59 06/25/18 08:54 Montelukast Sodium (Singulair) 10 mg QPM ORAL 06/24/18 16:30 07/24/18 16:29 06/24/18 16:48 Salmeterol Xinafoate/ Fluticasone (Advair 250/50 Diskus) 1 puffs BIDRT INH 06/24/18 10:00 07/24/18 09:59 06/25/18 09:40 Subjective ROS Limited/Unobtainable: No Allergies: Coded Allergies: PENICILLINS (Verified Allergy, Unknown, 08/31/17) TRAMADOL (Verified Allergy, Unknown, 08/31/17) Objective Last 24 Hour Vital Signs Date Time Temp Pulse Resp B/P (MAP) Pulse Ox O2 Delivery O2 Flow Rate FiO2 06/27/18 13:39 66 20 99 Room Air 06/27/18 13:34 67 18 97 Room Air 06/27/18 12:51 98.0 06/27/18 12:00 78 06/27/18 12:00 98.0 56 20 133/61 (85) 98 06/27/18 09:00 Room Air 06/27/18 08:32 114/60 06/27/18 08:00 61 06/27/18 08:00 98.2 63 20 114/60 (78) 96 06/27/18 07:42 68 18 99 Room Air 21 06/27/18 07:36 64 18 96 Room Air 21 06/27/18 04:00 98.6 59 20 129/84 (99) 98 06/27/18 04:00 48 06/27/18 01:29 Room Air 21 06/27/18 01:28 Room Air 21 06/27/18 00:00 56 06/27/18 00:00 98.8 61 20 135/66 (89) 94 06/26/18 21:01 60 20 99 Room Air 21 06/26/18 21:00 Room Air 06/26/18 20:53 64 20 98 Room Air 21 06/26/18 20:00 66 06/26/18 20:00 98.9 63 21 127/61 (83) 95 06/26/18 17:02 117/62 06/26/18 16:00 67 06/26/18 16:00 98.1 60 18 117/62 (80) 96 06/26/18 14:20 64 16 98 Room Air 21 06/26/18 14:12 21 06/26/18 14:09 65 16 97 Room Air 21 Intake and Output 06/26/18 06/27/18 19:00 07:00 Intake Total 600 ml Output Total 1400 ml 2100 ml Balance -800 ml -2100 ml Intake Oral 600 ml Output Urine Total 1400 ml 2100 ml Laboratory Tests 06/27/18 05:08: White Blood Count 9.3, Red Blood Count 4.55L, Hemoglobin 11.6L, Hematocrit 36.3L , Mean Corpuscular Volume 80, Mean Corpuscular Hemoglobin 25.4L, Mean Corpuscular Hemoglobin Concent 31.9L, Red Cell Distribution Width 15.3H, Platelet Count 239, Mean Platelet Volume 7.6, Neutrophils (%) (Auto) 48.5, Lymphocytes (%) (Auto) 37.0, Monocytes (%) (Auto) 10.5H, Eosinophils (%) (Auto) 2.3, Basophils (%) (Auto) 1.6, Sodium Level 138, Potassium Level 3.8, Chloride Level 100, Carbon Dioxide Level 35H, Anion Gap 3L, Blood Urea Nitrogen 35H, Creatinine 1.2, Estimat Glomerular Filtration Rate > 60, Glucose Level 105, Uric Acid 7.4H, Calcium Level 7.8L, Phosphorus Level 3.5, Magnesium Level 2.1, Total Bilirubin 0.2, Aspartate Amino Transf (AST/SGOT) 18, Alanine Aminotransferase (ALT/SGPT) 32, Alkaline Phosphatase 86, C-Reactive Protein, Quantitative < 0.4, Pro-B-Type Natriuretic Peptide 205H, Total Protein 8.1, Albumin 3.0L, Globulin 5.1, Albumin/Globulin Ratio 0.6L Current Medications Medications (Trade) Dose Ordered Sig/Virgen Route PRN Reason Start Time Stop Time Status Last Admin Dose Admin Acetaminophen (Tylenol) 650 mg Q4H PRN ORAL Mild Pain/Temp > 100.5 06/24/18 00:00 07/24/18 00:00 Acetaminophen/ Hydrocodone Bitart ([place] 10/325) 1 tab Q4H PRN ORAL For Pain 06/24/18 00:00 07/01/18 00:00 06/27/18 12:21 Albuterol/ Ipratropium (Albuterol/ Ipratropium) 3 ml Q4H PRN [facility] Shortness of Breath 06/24/18 00:00 06/29/18 00:00 Albuterol/ Ipratropium (Albuterol/ Ipratropium) 3 ml Q6HRT HHN 06/24/18 19:00 06/29/18 18:59 06/27/18 13:39 Aspirin (ASA) 81 mg DAILY ORAL 06/24/18 09:00 07/24/18 08:59 06/27/18 08:30 Atorvastatin Calcium (Lipitor) 10 mg BEDTIME ORAL 06/24/18 21:00 07/24/18 20:59 06/26/18 20:44 Benazepril HCl (Lotensin) 20 mg BID ORAL 06/24/18 09:00 07/24/18 08:59 06/27/18 08:32 Docusate Sodium (Colace) 100 mg TWICE A DAY ORAL 06/27/18 09:00 07/27/18 08:59 06/27/18 08:30 Furosemide (Lasix) 80 mg EVERY 12 HOURS IV 06/24/18 21:00 07/24/18 20:59 06/27/18 08:31 Heparin Sodium (Porcine) (Heparin 5000 units/ml) 5,000 units EVERY 12 HOURS SUBQ 06/24/18 09:00 07/24/18 08:59 Iron Sucrose 100 mg/Sodium Chloride 60 ml @ 240 mls/hr BEDTIME IV 06/26/18 21:00 06/30/18 21:14 06/26/18 20:44 Montelukast Sodium (Singulair) 10 mg QPM ORAL 06/24/18 16:30 07/24/18 16:29 06/26/18 17:02 Prednisone (predniSONE) 30 mg DAILY ORAL 06/28/18 09:00 07/27/18 08:59 Salmeterol Xinafoate/ Fluticasone (Advair 250/50 Diskus) 1 puffs BIDRT INH 06/24/18 10:00 07/24/18 09:59 06/27/18 11:45 Anival Hsieh MD Jun 27, 2018 13:42
[2018-06-27 16:00] VITALS: BP 119/61
[2018-06-27] MEDS: Montelukast 10mg tablet ORAL SCH (16:19)
[2018-06-27] MEDS: Iron Sucrose 100 MG in NS 55 ML IV SCH (20:16)
[2018-06-27 21:00] VITALS: BP 130/71
--- NOTE | 2018-06-27 21:29 | General Progress Note ---
Assessment/Plan Problem List: (1) Edema ICD Codes: R60.9 - Edema, unspecified SNOMED: 894953345, [id number] (2) Anemia, iron deficiency ICD Codes: D50.9 - Iron deficiency anemia, unspecified SNOMED: 63004877 (3) CHF (congestive heart failure) ICD Codes: I50.9 - Heart failure, unspecified SNOMED: 98724326 Status: progressing Assessment/Plan speak w cardiology re plan of treatment no sob edema chf fluid mangement per cardiology and renal has fluid that needs to be removed Subjective ROS Limited/Unobtainable: Yes Allergies: Coded Allergies: PENICILLINS (Verified Allergy, Unknown, 08/31/17) TRAMADOL (Verified Allergy, Unknown, 08/31/17) Objective Last 24 Hour Vital Signs Date Time Temp Pulse Resp B/P (MAP) Pulse Ox O2 Delivery O2 Flow Rate FiO2 06/27/18 20:20 63 20 99 Room Air 21 06/27/18 20:18 65 2 96 Room Air 21 06/27/18 17:17 119/61 06/27/18 16:50 98.0 06/27/18 16:00 63 06/27/18 16:00 98.1 66 20 119/61 (80) 97 06/27/18 13:39 66 20 99 Room Air 21 06/27/18 13:34 67 18 97 Room Air 21 06/27/18 12:00 78 06/27/18 12:00 98.0 56 20 133/61 (85) 98 06/27/18 09:00 Room Air 06/27/18 08:32 114/60 06/27/18 08:00 61 06/27/18 08:00 98.2 63 20 114/60 (78) 96 06/27/18 07:42 68 18 99 Room Air 21 06/27/18 07:36 64 18 96 Room Air 21 06/27/18 04:00 98.6 59 20 129/84 (99) 98 06/27/18 04:00 48 06/27/18 01:29 Room Air 21 06/27/18 01:28 Room Air 21 06/27/18 00:00 56 06/27/18 00:00 98.8 61 20 135/66 (89) 94 Intake and Output 06/26/18 06/27/18 19:00 07:00 Intake Total 600 ml Output Total 1400 ml 2100 ml Balance -800 ml -2100 ml Intake Oral 600 ml Output Urine Total 1400 ml 2100 ml Laboratory Tests 06/27/18 05:08: White Blood Count 9.3, Red Blood Count 4.55L, Hemoglobin 11.6L, Hematocrit 36.3L , Mean Corpuscular Volume 80, Mean Corpuscular Hemoglobin 25.4L, Mean Corpuscular Hemoglobin Concent 31.9L, Red Cell Distribution Width 15.3H, Platelet Count 239, Mean Platelet Volume 7.6, Neutrophils (%) (Auto) 48.5, Lymphocytes (%) (Auto) 37.0, Monocytes (%) (Auto) 10.5H, Eosinophils (%) (Auto) 2.3, Basophils (%) (Auto) 1.6, Sodium Level 138, Potassium Level 3.8, Chloride Level 100, Carbon Dioxide Level 35H, Anion Gap 3L, Blood Urea Nitrogen 35H, Creatinine 1.2, Estimat Glomerular Filtration Rate > 60, Glucose Level 105, Uric Acid 7.4H, Calcium Level 7.8L, Phosphorus Level 3.5, Magnesium Level 2.1, Total Bilirubin 0.2, Aspartate Amino Transf (AST/SGOT) 18, Alanine Aminotransferase (ALT/SGPT) 32, Alkaline Phosphatase 86, C-Reactive Protein, Quantitative < 0.4, Pro-B-Type Natriuretic Peptide 205H, Total Protein 8.1, Albumin 3.0L, Globulin 5.1, Albumin/Globulin Ratio 0.6L Height (Feet): 6 Height (Inches): 3.00 Weight (Pounds): 308 Cardiovascular: normal rate Respiratory/Chest: lungs clear Abdomen: non tender Brittney Shepard MD Jun 27, 2018 21:29
[2018-06-28] VITALS: BP 115/57
[2018-06-28] MEDS: Albuterol/Ipratropium 3ml neb HHN SCH ×4 (01:06→20:16)
[2018-06-28] MEDS: HYDROcodone/Acetamin 10/325 tab ORAL PRN ×4 (03:10→21:13)
[2018-06-28 04:00] VITALS: BP 120/64
[2018-06-28 08:00] VITALS: BP 112/75
[2018-06-28] MEDS: Heparin 5000 units/ml inj SUBQ SCH ×2 (08:51→21:00)
[2018-06-28] MEDS: Aspirin Baby 81mg ORAL SCH (08:56)
[2018-06-28] MEDS: Docusate 100mg cap ORAL SCH ×2 (08:56→17:01)
[2018-06-28] MEDS: Advair 250/50 Inhaler - 14 dose INH SCH ×2 (09:43→23:45)
--- NOTE | 2018-06-28 09:49 | Nephrology Progress Note ---
Assessment/Plan Problem List: (1) Anemia, iron deficiency (2) CHF (congestive heart failure) (3) COPD exacerbation Assessment - CHF (congestive heart failure) - COPD exacerbation - Anemia, iron deficiency - HTN Plan IV Iron- pulm support Taper steroids as needed 2D echo ej Fx 60% done previously- re eval- monitor lytes per orders Subjective ROS Limited/Unobtainable: No Objective Objective Last 24 Hour Vital Signs Date Time Temp Pulse Resp B/P (MAP) Pulse Ox O2 Delivery O2 Flow Rate FiO2 06/28/18 09:00 Room Air 06/28/18 08:59 112/75 06/28/18 08:00 71 06/28/18 08:00 97.8 67 22 112/75 (87) 96 06/28/18 07:51 72 18 100 Room Air 21 06/28/18 07:42 72 18 97 Room Air 21 06/28/18 04:00 82 06/28/18 04:00 97.1 20 120/64 (82) 93 06/28/18 01:14 67 18 100 Room Air 21 06/28/18 01:07 63 18 97 Room Air 21 06/28/18 00:00 97.2 58 18 115/57 (76) 95 06/28/18 00:00 52 06/27/18 21:00 Room Air 06/27/18 21:00 97.5 75 20 130/71 (90) 96 06/27/18 20:20 63 20 99 Room Air 21 06/27/18 20:18 65 2 96 Room Air 21 06/27/18 20:00 69 06/27/18 17:17 119/61 06/27/18 16:50 98.0 06/27/18 16:00 63 06/27/18 16:00 98.1 66 20 119/61 (80) 97 06/27/18 13:39 66 20 99 Room Air 21 06/27/18 13:34 67 18 97 Room Air 21 06/27/18 12:00 78 06/27/18 12:00 98.0 56 20 133/61 (85) 98 Intake and Output 06/27/18 06/28/18 19:00 07:00 Intake Total 1250 ml Output Total 2600 ml 1400 ml Balance -1350 ml -1400 ml Intake Oral 1250 ml Output Urine Total 2600 ml 1400 ml # Voids 5 Height (Feet): 6 Height (Inches): 3.00 Weight (Pounds): 308 General Appearance: no apparent distress Objective no change Jerzy Hardwick MD Jun 28, 2018 09:49
[2018-06-28 12:00] VITALS: BP 117/58
--- NOTE | 2018-06-28 12:59 | Cardiac Electrophysiology PN ---
Assessment/Plan Assessment/Plan 1. Congestive heart failure with diastolic dysfunction.On Lasix 80 mg IV b.i.d. 2. Hypertension. On Lotensin 20 mg and iv Lasix 3. Hyperlipidemia. On Lipitor. 4. Chronic obstructive pulmonary disease. On prednisone 30 daily and Advair. JEANETTE RN Check BMP in am. DC tele Subjective Subjective Diuresing on Lasix dose of 80 iv bid.No CP or SOB or arrhythmias Objective Last 24 Hour Vital Signs Date Time Temp Pulse Resp B/P (MAP) Pulse Ox O2 Delivery O2 Flow Rate FiO2 06/28/18 12:00 97.1 55 21 117/58 (77) 96 06/28/18 09:00 Room Air 06/28/18 08:59 112/75 06/28/18 08:00 71 06/28/18 08:00 97.8 67 22 112/75 (87) 96 06/28/18 07:51 72 18 100 Room Air 21 06/28/18 07:42 72 18 97 Room Air 21 06/28/18 04:00 82 06/28/18 04:00 97.1 20 120/64 (82) 93 06/28/18 01:14 67 18 100 Room Air 21 06/28/18 01:07 63 18 97 Room Air 21 06/28/18 00:00 97.2 58 18 115/57 (76) 95 06/28/18 00:00 52 06/27/18 21:00 Room Air 06/27/18 21:00 97.5 75 20 130/71 (90) 96 06/27/18 20:20 63 20 99 Room Air 21 06/27/18 20:18 65 2 96 Room Air 21 06/27/18 20:00 69 06/27/18 17:17 119/61 06/27/18 16:50 98.0 06/27/18 16:00 63 06/27/18 16:00 98.1 66 20 119/61 (80) 97 06/27/18 13:39 66 20 99 Room Air 21 06/27/18 13:34 67 18 97 Room Air 21 Intake and Output 06/27/18 06/28/18 19:00 07:00 Intake Total 1250 ml Output Total 2600 ml 1400 ml Balance -1350 ml -1400 ml Intake Oral 1250 ml Output Urine Total 2600 ml 1400 ml # Voids 5 Objective HEAD AND NECK: Shows mild jugular venous distention. LUNGS: Decreased breath sounds. Coarse rhonchi. CARDIOVASCULAR: Shows regular S1 and S2 with no gallop or murmur. ABDOMEN: Soft. EXTREMITIES: Bilateral 1+ pitting edema. Prosper Crum MD Jun 28, 2018 12:59
[2018-06-28 16:00] VITALS: BP 107/59
[2018-06-28] MEDS: Montelukast 10mg tablet ORAL SCH (17:01)
[2018-06-28 20:00] VITALS: BP 106/57
--- NOTE | 2018-06-28 20:05 | Pulmonology Progress Note ---
Assessment/Plan Assessment/Plan Assessment/Plan ASSESSMENT: The patient is a 62-year-old male, lifelong nonsmoker with a history of congestive heart failure with diastolic dysfunction, pulmonary hypertension, obesity, likely obstructive sleep apnea, known pulmonary nodules, anemia and asthma, presenting with shortness of breath likely secondary to a combination of decompensated heart failure and an exacerbation of his underlying asthma. PROBLEM LIST: 1. Shortness of breath likely secondary to decompensated heart failure and asthma. 2. Asthma with acute exacerbation. 3. CHF with diastolic dysfunction, acute exacerbation. 4. Bilateral lower extremity edema, likely secondary to above. 5. Known scattered bilateral subcentimeter nodules, stable on follow-up imaging with stable lymphadenopathy. 6. Pulmonary HTN 7. Anemia. 8. Hypertension. 9. Obesity. 10. Likely THERON. 11. Elevated D-dimer with a negative duplex and low probability VQ TREATMENT PLAN: 1. Optimize pulmonary hygiene/mobilize as tolerated. 2. P.r.n. O2 to keep saturations greater than 90%. 3. Laukr-mxo-yzuil and p.r.n. bronchodilators. 4. Decrease Solu-Medrol to 30 IV b.i.d. and taper. 5. Observe off antibiotics. 6. Monitor volumes, diurese to keep negative as tolerated. 7. ABG. 8. F/U cardiology recommendations 9. Continue to follow up with [facility] per the patient. I have advised him to take a copy of his CT's and TTE's to [facility]. It is unclear what kind of pulmonary work up he has had in the past but he needs to have PTF's, PST and a PH w/u (possible RHC) if not already done. He also needs surveillance imaging of his chest CT findings. He states his chuck tender @ [facility] is aware and is following him regularly. 10. DVT prophylaxis, heparin subcutaneous. 11. Weight-loss diet and exercise discussed again. Subjective Allergies: Coded Allergies: PENICILLINS (Verified Allergy, Unknown, 08/31/17) TRAMADOL (Verified Allergy, Unknown, 08/31/17) Subjective -4L, AFVSS, on RA TTE noted D-dimer elevated, duplex and VQ negative Less SOB, no cough, no SOB, no wheezing, less NELLIE, no FC Objective Vital Signs Noted General Appearance: no acute distress, other - obese male HEENT: normocephalic, atraumatic, anicteric, mucous membranes moist Respiratory/Chest: chest wall non-tender, lungs clear, normal breath sounds, no respiratory distress, no accessory muscle use Cardiovascular: normal peripheral pulses, normal rate, regular rhythm Abdomen: normal bowel sounds, soft, non tender, no organomegaly, non distended , no mass Extremities: no cyanosis, no clubbing, other - 2+ NELLIE Laboratory Tests 06/24/18 16:00: D-Dimer 2.19H 06/24/18 17:00: Urine Color Pale yellow, Urine Appearance Clear, Urine pH 7, Urine Specific [place] 1.010, Urine Protein Negative, Urine Glucose (UA) Negative, Urine Ketones Negative, Urine Blood Negative, Urine Nitrite Negative, Urine Bilirubin Negative, Urine Urobilinogen Normal, Urine Leukocyte Esterase Negative, Urine RBC 0-2H, Urine WBC 0, Urine Squamous Epithelial Cells Occasional, Urine Bacteria None 06/25/18 04:26: White Blood Count 3.8L, Red Blood Count 4.43L, Hemoglobin 11.2L, Hematocrit 35.6L, Mean Corpuscular Volume 80, Mean Corpuscular Hemoglobin 25.2L, Mean Corpuscular Hemoglobin Concent 31.4L, Red Cell Distribution Width 14.9H, Platelet Count 198, Mean Platelet Volume 6.9, Neutrophils (%) (Auto) 74.9, Lymphocytes (%) (Auto) 22.8, Monocytes (%) (Auto) 1.6, Eosinophils (%) (Auto) 0.1, Basophils (%) (Auto) 0.6, Sodium Level 138, Potassium Level 4.1, Chloride Level 102, Carbon Dioxide Level 30, Anion Gap 6, Blood Urea Nitrogen 24H, Creatinine 1.1, Estimat Glomerular Filtration Rate > 60, Glucose Level 151H, Hemoglobin A1c 6.0, Uric Acid 7.1, Calcium Level 9.3, Phosphorus Level 4.3, Magnesium Level 1.9, Iron Level 29L, Total Iron Binding Capacity 275, Percent Iron Saturation 11L, Unsaturated Iron Binding 246, Total Bilirubin 0.2, Gamma Glutamyl Transpeptidase 30, Aspartate Amino Transf (AST/SGOT) 30, Alanine Aminotransferase (ALT/SGPT) 39, Alkaline Phosphatase 93, Troponin I 0.006, Pro-B -Type Natriuretic Peptide 326H, Total Protein 7.9, Albumin 2.8L, Globulin 5.1, Albumin/Globulin Ratio 0.5L, Triglycerides Level 21L, Cholesterol Level 182, LDL Cholesterol 114H, HDL Cholesterol 58, Cholesterol/HDL Ratio 3.1L, Vitamin B12 Level 1142H, Thyroid Stimulating Hormone (TSH) 0.227L Current Medications Medications (Trade) Dose Ordered Sig/Vigren Route PRN Reason Start Time Stop Time Status Last Admin Dose Admin Acetaminophen (Tylenol) 650 mg Q4H PRN ORAL Mild Pain/Temp > 100.5 06/24/18 00:00 07/24/18 00:00 Acetaminophen/ Hydrocodone Bitart ([place] 10/325) 1 tab Q4H PRN ORAL For Pain 06/24/18 00:00 07/01/18 00:00 06/25/18 11:51 Albuterol/ Ipratropium (Albuterol/ Ipratropium) 3 ml Q4H PRN HHN Shortness of Breath 06/24/18 00:00 06/29/18 00:00 Albuterol/ Ipratropium (Albuterol/ Ipratropium) 3 ml Q6HRT HHN 06/24/18 19:00 06/29/18 18:59 06/25/18 13:03 Aspirin (ASA) 81 mg DAILY ORAL 06/24/18 09:00 07/24/18 08:59 06/25/18 08:49 Atorvastatin Calcium (Lipitor) 10 mg BEDTIME ORAL 06/24/18 21:00 07/24/18 20:59 06/24/18 20:13 Benazepril HCl (Lotensin) 20 mg BID ORAL 06/24/18 09:00 07/24/18 08:59 06/25/18 08:54 Furosemide (Lasix) 80 mg EVERY 12 HOURS IV 06/24/18 21:00 07/24/18 20:59 06/25/18 08:54 Heparin Sodium (Porcine) (Heparin 5000 units/ml) 5,000 units EVERY 12 HOURS SUBQ 06/24/18 09:00 07/24/18 08:59 Iron Sucrose 100 mg/Sodium Chloride 60 ml @ 240 mls/hr BEDTIME IV 06/26/18 21:00 06/30/18 21:14 Iron Sucrose 200 mg/Sodium Chloride 120 ml @ 240 mls/hr ONCE ONCE IV 06/25/18 15:00 06/25/18 15:29 Methylprednisolone Sodium Succinate (Solu-MEDROL) 40 mg EVERY 12 HOURS IVP 06/24/18 21:00 07/24/18 20:59 06/25/18 08:54 Montelukast Sodium (Singulair) 10 mg QPM ORAL 06/24/18 16:30 07/24/18 16:29 06/24/18 16:48 Salmeterol Xinafoate/ Fluticasone (Advair 250/50 Diskus) 1 puffs BIDRT INH 06/24/18 10:00 07/24/18 09:59 06/25/18 09:40 Subjective ROS Limited/Unobtainable: No Allergies: Coded Allergies: PENICILLINS (Verified Allergy, Unknown, 08/31/17) TRAMADOL (Verified Allergy, Unknown, 08/31/17) Objective Last 24 Hour Vital Signs Date Time Temp Pulse Resp B/P (MAP) Pulse Ox O2 Delivery O2 Flow Rate FiO2 06/28/18 17:01 107/59 06/28/18 16:00 62 06/28/18 16:00 97.0 65 19 107/59 (75) 97 06/28/18 13:39 79 18 100 Room Air 21 06/28/18 13:26 79 18 98 Room Air 21 06/28/18 12:00 97.1 55 21 117/58 (77) 96 06/28/18 12:00 54 06/28/18 09:00 Room Air 06/28/18 08:59 112/75 06/28/18 08:00 71 06/28/18 08:00 97.8 67 22 112/75 (87) 96 06/28/18 07:51 72 18 100 Room Air 21 06/28/18 07:42 72 18 97 Room Air 21 06/28/18 04:00 82 06/28/18 04:00 97.1 20 120/64 (82) 93 06/28/18 01:14 67 18 100 Room Air 21 06/28/18 01:07 63 18 97 Room Air 21 06/28/18 00:00 97.2 58 18 115/57 (76) 95 06/28/18 00:00 52 06/27/18 21:00 Room Air 06/27/18 21:00 97.5 75 20 130/71 (90) 96 11/9/18 20:20 63 20 99 Room Air 21 06/27/18 20:18 65 2 96 Room Air 21 Intake and Output 06/27/18 06/28/18 19:00 07:00 Intake Total 1250 ml Output Total 2600 ml 1400 ml Balance -1350 ml -1400 ml Intake Oral 1250 ml Output Urine Total 2600 ml 1400 ml # Voids 5 Current Medications Medications (Trade) Dose Ordered Sig/Virgen Route PRN Reason Start Time Stop Time Status Last Admin Dose Admin Acetaminophen (Tylenol) 650 mg Q4H PRN ORAL Mild Pain/Temp > 100.5 06/24/18 00:00 07/24/18 00:00 Acetaminophen/ Hydrocodone Bitart ([place] 10) 1 tab Q4H PRN ORAL For Pain 06/24/18 00:00 07/01/18 00:00 06/28/18 14:14 Albuterol/ Ipratropium (Albuterol/ Ipratropium) 3 ml Q4H PRN HHN Shortness of Breath 06/24/18 00:00 06/29/18 00:00 Albuterol/ Ipratropium (Albuterol/ Ipratropium) 3 ml Q6HRT HHN 06/24/18 19:00 06/29/18 18:59 06/28/18 13:28 Aspirin (ASA) 81 mg DAILY ORAL 06/24/18 09:00 07/24/18 08:59 06/28/18 08:56 Atorvastatin Calcium (Lipitor) 10 mg BEDTIME ORAL 06/24/18 21:00 07/24/18 20:59 06/27/18 20:15 Benazepril HCl (Lotensin) 20 mg BID ORAL 06/24/18 09:00 07/24/18 08:59 06/28/18 17:01 Docusate Sodium (Colace) 100 mg TWICE A DAY ORAL 06/27/18 09:00 07/27/18 08:59 06/28/18 17:01 Furosemide (Lasix) 80 mg EVERY 12 HOURS ORAL 06/28/18 21:00 07/28/18 20:59 Heparin Sodium (Porcine) (Heparin 5000 units/ml) 5,000 units EVERY 12 HOURS SUBQ 06/24/18 09:00 07/24/18 08:59 Iron Sucrose 100 mg/Sodium Chloride 60 ml @ 240 mls/hr BEDTIME IV 06/26/18 21:00 06/30/18 21:14 06/27/18 20:16 Montelukast Sodium (Singulair) 10 mg QPM ORAL 06/24/18 16:30 07/24/18 16:29 06/28/18 17:01 Prednisone (predniSONE) 30 mg DAILY ORAL 06/28/18 09:00 07/27/18 08:59 06/28/18 08:57 Salmeterol Xinafoate/ Fluticasone (Advair 250/50 Diskus) 1 puffs BIDRT INH 06/24/18 10:00 07/24/18 09:59 06/28/18 09:43 Anival Hsieh MD Jun 28, 2018 20:05
[2018-06-28] MEDS ORDERED: Furosemide 80mg tab ORAL SCH (21:00)
--- NOTE | 2018-06-28 21:09 | General Progress Note ---
Assessment/Plan Problem List: (1) Edema ICD Codes: R60.9 - Edema, unspecified SNOMED: 934642995, [id number] (2) Anemia, iron deficiency ICD Codes: D50.9 - Iron deficiency anemia, unspecified SNOMED: 22622481 (3) CHF (congestive heart failure) ICD Codes: I50.9 - Heart failure, unspecified SNOMED: 39139788 Status: progressing Assessment/Plan lyte abnormality edema is still present no fever edema chf fluid mangement per cardiology and renal has fluid that needs to be removed Subjective ROS Limited/Unobtainable: Yes Allergies: Coded Allergies: PENICILLINS (Verified Allergy, Unknown, 08/31/17) TRAMADOL (Verified Allergy, Unknown, 08/31/17) Objective Last 24 Hour Vital Signs Date Time Temp Pulse Resp B/P (MAP) Pulse Ox O2 Delivery O2 Flow Rate FiO2 06/28/18 20:27 69 18 99 Room Air 21 06/28/18 20:16 69 18 98 Room Air 21 06/28/18 17:01 107/59 06/28/18 16:00 62 06/28/18 16:00 97.0 65 19 107/59 (75) 97 06/28/18 13:39 79 18 100 Room Air 06/28/18 13:26 79 18 98 Room Air 21 06/28/18 12:00 97.1 55 21 117/58 (77) 96 06/28/18 12:00 54 06/28/18 09:00 Room Air 06/28/18 08:59 112/75 06/28/18 08:00 71 06/28/18 08:00 97.8 67 22 112/75 (87) 96 06/28/18 07:51 72 18 100 Room Air 21 06/28/18 07:42 72 18 97 Room Air 21 06/28/18 04:00 82 06/28/18 04:00 97.1 20 120/64 (82) 93 06/28/18 01:14 67 18 100 Room Air 21 06/28/18 01:07 63 18 97 Room Air 21 06/28/18 00:00 97.2 58 18 115/57 (76) 95 06/28/18 00:00 52 Intake and Output 06/27/18 06/28/18 19:00 07:00 Intake Total 1250 ml Output Total 2600 ml 1400 ml Balance -1350 ml -1400 ml Intake Oral 1250 ml Output Urine Total 2600 ml 1400 ml # Voids 5 Height (Feet): 6 Height (Inches): 3.00 Weight (Pounds): 308 Neck: supple Cardiovascular: normal rate Respiratory/Chest: lungs clear Abdomen: soft Brittney Shepard MD Jun 28, 2018 21:09
[2018-06-28] MEDS: Iron Sucrose 100 MG in NS 55 ML IV SCH (21:11)
--- NOTE | 2018-06-28 21:38 | General Progress Note ---
Assessment/Plan Status: stable Assessment/Plan ASSESSMENT AND RECOMMENDATIONS: #. Anemia due to underlying iron deficiency. The patient on prior admission given IV iron. --> ferritin is reviewed and is 82, TIBC is approx 200, likely iron repleted --> monitor and trend as needed cbc #. Anemia due to hemodilution with chf overload --> as per cardiology, diuresis is appreciated #. Leukopenia in the past. Hepatitis and HIV is negative. --> Ultrasound showed no acute findings. Medications have been reviewed. --> Currently wbc is low --> trend as needed --> given neupogen if anc <1000 #. Borderline mediastinal lymphadenopathy, nonspecific etiology. Multiple small right lung nodules. --> Repeat CT scan in 6 to 12 months. #. Congestive heart failure exacerbation versus asthma. as per Dr. Crum. Appreciate cardiology consultation. --> cards and pulm recs reviewed #. Chronic venous stasis lower extremities. #. Chronic obstructive pulmonary disease exacerbation. Shortness of breath. Given steroids and Lasix. #. DVT prophylaxis with heparin. Appreciate consultation greatly! Subjective Date patient seen: Jun 28, 2018 Hematologic/Lymphatic: Reports: anemia Allergies: Coded Allergies: PENICILLINS (Verified Allergy, Unknown, 08/31/17) TRAMADOL (Verified Allergy, Unknown, 08/31/17) All Systems: reviewed and negative except above Subjective Pt awake and alert. No acute events. Objective Last 24 Hour Vital Signs Date Time Temp Pulse Resp B/P (MAP) Pulse Ox O2 Delivery O2 Flow Rate FiO2 06/28/18 20:27 69 18 99 Room Air 21 06/28/18 20:16 69 18 98 Room Air 21 06/28/18 17:01 107/59 06/28/18 16:00 62 06/28/18 16:00 97.0 65 19 107/59 (75) 97 06/28/18 13:39 79 18 100 Room Air 21 06/28/18 13:26 79 18 98 Room Air 21 06/28/18 12:00 97.1 55 21 117/58 (77) 96 06/28/18 12:00 54 06/28/18 09:00 Room Air 06/28/18 08:59 112/75 06/28/18 08:00 71 06/28/18 08:00 97.8 67 22 112/75 (87) 96 06/28/18 07:51 72 18 100 Room Air 21 06/28/18 07:42 72 18 97 Room Air 21 06/28/18 04:00 82 06/28/18 04:00 97.1 20 120/64 (82) 93 06/28/18 01:14 67 18 100 Room Air 21 06/28/18 01:07 63 18 97 Room Air 21 06/28/18 00:00 97.2 58 18 115/57 (76) 95 06/28/18 00:00 52 Intake and Output 06/27/18 06/28/18 19:00 07:00 Intake Total 1250 ml Output Total 2600 ml 1400 ml Balance -1350 ml -1400 ml Intake Oral 1250 ml Output Urine Total 2600 ml 1400 ml # Voids 5 Height (Feet): 6 Height (Inches): 3.00 Weight (Pounds): 308 General Appearance: no apparent distress Objective PHYSICAL EXAMINATION: VITAL SIGNS: Have been reviewed. HEAD AND NECK: Shows mild jugular venous distention. LUNGS: Decreased breath sounds. Coarse rhonchi. CARDIOVASCULAR: Shows regular S1 and S2 with no gallop or murmur. ABDOMEN: Soft. EXTREMITIES: Bilateral 2+ pitting edema. Kade Fermin MD Jun 28, 2018 21:38
[2018-06-29] VITALS: BP 106/60
[2018-06-29] MEDS ORDERED: Albuterol/Ipratropium 3ml neb HHN PRN
[2018-06-29] MEDS: Albuterol/Ipratropium 3ml neb HHN SCH ×3 (01:00→12:49)
[2018-06-29] MEDS: HYDROcodone/Acetamin 10/325 tab ORAL PRN ×5 (01:13→20:15)
[2018-06-29 04:00] VITALS: BP 117/62
[2018-06-29 08:00] VITALS: BP 109/65
[2018-06-29] MEDS ORDERED: Furosemide 40mg tab ONE (08:21)
[2018-06-29] MEDS: Heparin 5000 units/ml inj SUBQ SCH ×3 (08:42→20:46)
[2018-06-29] MEDS: Docusate 100mg cap ORAL SCH ×2 (08:49→18:09)
[2018-06-29] MEDS: Aspirin Baby 81mg ORAL SCH (08:49)
[2018-06-29] MEDS: Furosemide 40mg tab ORAL SCH ×2 (08:52→20:14)
[2018-06-29] MEDS ORDERED: Furosemide 80mg tab ORAL SCH (09:00)
[2018-06-29] MEDS: Advair 250/50 Inhaler - 14 dose INH SCH ×2 (10:00→22:00)
[2018-06-29 12:00] VITALS: BP 118/55
--- NOTE | 2018-06-29 14:17 | Cardiac Electrophysiology PN ---
Assessment/Plan Assessment/Plan 1. Congestive heart failure with diastolic dysfunction.On Lasix 80 mg IV b.i.d. 2. Hypertension. On Lotensin 20 mg and Lasix 3. Hyperlipidemia. On Lipitor. 4. Chronic obstructive pulmonary disease. On prednisone 30 daily and Advair. JEANETTE RN Subjective Subjective Still on Lasix 80 iv bid.No CP or SOB . Off tele now Objective Last 24 Hour Vital Signs Date Time Temp Pulse Resp B/P (MAP) Pulse Ox O2 Delivery O2 Flow Rate FiO2 06/29/18 12:49 77 18 100 Room Air 21 06/29/18 12:43 76 18 97 Room Air 21 06/29/18 09:00 Room Air 06/29/18 08:00 97.1 66 20 109/65 (80) 97 06/29/18 07:32 85 20 100 Room Air 21 06/29/18 07:26 88 20 99 Room Air 21 06/29/18 04:00 97.7 67 18 117/62 (80) 97 06/29/18 01:45 Room Air 06/29/18 01:45 Room Air 21 06/29/18 00:00 97.3 64 18 106/60 (75) 97 06/28/18 21:00 Room Air 06/28/18 20:27 69 18 99 Room Air 21 06/28/18 20:16 69 18 98 Room Air 21 06/28/18 20:00 98.0 66 18 106/57 (73) 97 06/28/18 17:01 107/59 06/28/18 16:00 62 06/28/18 16:00 97.0 65 19 107/59 (75) 97 Intake and Output 06/28/18 06/29/18 19:00 07:00 Intake Total 1360 ml 560 ml Output Total 1200 ml 1200 ml Balance 160 ml -640 ml Intake Oral 1360 ml 500 ml IV Total 60 ml Output Urine Total 1200 ml 1200 ml Objective HEAD AND NECK: Mild jugular venous distention. LUNGS: Decreased breath sounds. Coarse rhonchi. CARDIOVASCULAR: Regular S1 and S2 with no gallop or murmur. ABDOMEN: Soft. EXTREMITIES: Bilateral 1+ pitting edema. Prosper Crum MD Jun 29, 2018 14:17
--- NOTE | 2018-06-29 15:31 | General Progress Note ---
Assessment/Plan Status: stable Assessment/Plan ASSESSMENT AND RECOMMENDATIONS: #. Anemia due to underlying iron deficiency. The patient on prior admission given IV iron. --> ferritin is reviewed and is 82, TIBC is approx 200, likely iron repleted --> monitor and trend as needed cbc #. Anemia due to hemodilution with chf overload --> as per cardiology, diuresis is appreciated #. Leukopenia in the past. Hepatitis and HIV is negative. --> Ultrasound showed no acute findings. Medications have been reviewed. --> Currently wbc is low --> trend as needed --> given neupogen if anc <1000 #. Borderline mediastinal lymphadenopathy, nonspecific etiology. Multiple small right lung nodules. --> Repeat CT scan in 6 to 12 months. #. Congestive heart failure exacerbation versus asthma. as per Dr. Crum. Appreciate cardiology consultation. --> cards and pulm recs reviewed #. Chronic venous stasis lower extremities. #. Chronic obstructive pulmonary disease exacerbation. Shortness of breath. Given steroids and Lasix. #. DVT prophylaxis with heparin. Appreciate consultation greatly! Subjective Date patient seen: Jun 29, 2018 Hematologic/Lymphatic: Reports: anemia Allergies: Coded Allergies: PENICILLINS (Verified Allergy, Unknown, 08/31/17) TRAMADOL (Verified Allergy, Unknown, 08/31/17) All Systems: reviewed and negative except above Subjective Pt awake and alert. No acute events. Objective Last 24 Hour Vital Signs Date Time Temp Pulse Resp B/P (MAP) Pulse Ox O2 Delivery O2 Flow Rate FiO2 06/29/18 12:49 77 18 100 Room Air 06/29/18 12:43 76 18 97 Room Air 06/29/18 09:00 Room Air 06/29/18 08:00 97.1 66 20 109/65 (80) 97 06/29/18 07:32 85 20 100 Room Air 06/29/18 07:26 88 20 99 Room Air 06/29/18 04:00 97.7 67 18 117/62 (80) 97 06/29/18 01:45 Room Air 06/29/18 01:45 Room Air 06/29/18 00:00 97.3 64 18 106/60 (75) 97 06/28/18 21:00 Room Air 06/28/18 20:27 69 18 99 Room Air 06/28/18 20:16 69 18 98 Room Air 21 06/28/18 20:00 98.0 66 18 106/57 (73) 97 06/28/18 17:01 107/59 06/28/18 16:00 62 06/28/18 16:00 97.0 65 19 107/59 (75) 97 Intake and Output 06/28/18 06/29/18 19:00 07:00 Intake Total 1360 ml 560 ml Output Total 1200 ml 1200 ml Balance 160 ml -640 ml Intake Oral 1360 ml 500 ml IV Total 60 ml Output Urine Total 1200 ml 1200 ml Height (Feet): 6 Height (Inches): 3.00 Weight (Pounds): 295 General Appearance: no apparent distress Objective PHYSICAL EXAMINATION: VITAL SIGNS: Have been reviewed. HEAD AND NECK: Shows mild jugular venous distention. LUNGS: Decreased breath sounds. Coarse rhonchi. CARDIOVASCULAR: Shows regular S1 and S2 with no gallop or murmur. ABDOMEN: Soft. EXTREMITIES: Bilateral 2+ pitting edema. Kade Fermin MD Jun 29, 2018 15:31
--- NOTE | 2018-06-29 15:41 | Nephrology Progress Note ---
Assessment/Plan Problem List: (1) Anemia, iron deficiency (2) CHF (congestive heart failure) (3) COPD exacerbation Assessment - CHF (congestive heart failure) - COPD exacerbation - Anemia, iron deficiency - HTN Plan IV Iron- pulm support Taper steroids as needed 2D echo ej Fx 60% done previously- re eval- monitor lytes per orders Subjective ROS Limited/Unobtainable: No Constitutional: Reports: malaise Objective Objective Last 24 Hour Vital Signs Date Time Temp Pulse Resp B/P (MAP) Pulse Ox O2 Delivery O2 Flow Rate FiO2 06/29/18 12:49 77 18 100 Room Air 21 06/29/18 12:43 76 18 97 Room Air 21 06/29/18 09:00 Room Air 06/29/18 08:00 97.1 66 20 109/65 (80) 97 06/29/18 07:32 85 20 100 Room Air 21 06/29/18 07:26 88 20 99 Room Air 21 06/29/18 04:00 97.7 67 18 117/62 (80) 97 06/29/18 01:45 Room Air 21 06/29/18 01:45 Room Air 21 06/29/18 00:00 97.3 64 18 106/60 (75) 97 06/28/18 21:00 Room Air 06/28/18 20:27 69 18 99 Room Air 21 06/28/18 20:16 69 18 98 Room Air 21 06/28/18 20:00 98.0 66 18 106/57 (73) 97 06/28/18 17:01 107/59 06/28/18 16:00 62 06/28/18 16:00 97.0 65 19 107/59 (75) 97 Intake and Output 06/28/18 06/29/18 19:00 07:00 Intake Total 1360 ml 560 ml Output Total 1200 ml 1200 ml Balance 160 ml -640 ml Intake Oral 1360 ml 500 ml IV Total 60 ml Output Urine Total 1200 ml 1200 ml Height (Feet): 6 Height (Inches): 3.00 Weight (Pounds): 295 General Appearance: no apparent distress Cardiovascular: normal rate Respiratory/Chest: decreased breath sounds Abdomen: soft Objective no change Jerzy Hardwick MD Jun 29, 2018 15:41
[2018-06-29 16:14] VITALS: BP 117/69
[2018-06-29] MEDS: Montelukast 10mg tablet ORAL SCH (16:57)
[2018-06-29 20:00] VITALS: BP 112/65
[2018-06-29] MEDS: Iron Sucrose 100 MG in NS 55 ML IV SCH (20:15)
--- NOTE | 2018-06-29 20:37 | General Progress Note ---
Assessment/Plan Problem List: (1) Edema ICD Codes: R60.9 - Edema, unspecified SNOMED: 409039600, [id number] (2) Anemia, iron deficiency ICD Codes: D50.9 - Iron deficiency anemia, unspecified SNOMED: 70194087 (3) CHF (congestive heart failure) ICD Codes: I50.9 - Heart failure, unspecified SNOMED: 23788949 Status: progressing Assessment/Plan afebrile dc planning no sob edema chf fluid mangement per cardiology and renal has fluid that needs to be removed Subjective ROS Limited/Unobtainable: Yes Allergies: Coded Allergies: PENICILLINS (Verified Allergy, Unknown, 08/31/17) TRAMADOL (Verified Allergy, Unknown, 08/31/17) Objective Last 24 Hour Vital Signs Date Time Temp Pulse Resp B/P (MAP) Pulse Ox O2 Delivery O2 Flow Rate FiO2 06/29/18 18:00 117/65 06/29/18 16:14 97.7 61 20 117/69 (85) 06/29/18 12:49 77 18 100 Room Air 21 06/29/18 12:43 76 18 97 Room Air 21 06/29/18 12:00 97.3 61 22 118/55 (76) 97 06/29/18 09:00 Room Air 06/29/18 08:00 97.1 66 20 109/65 (80) 97 06/29/18 07:32 85 20 100 Room Air 21 06/29/18 07:26 88 20 99 Room Air 21 06/29/18 04:00 97.7 67 18 117/62 (80) 97 06/29/18 01:45 Room Air 21 06/29/18 01:45 Room Air 21 06/29/18 00:00 97.3 64 18 106/60 (75) 97 06/28/18 21:00 Room Air Intake and Output 06/28/18 06/29/18 19:00 07:00 Intake Total 1360 ml 560 ml Output Total 1200 ml 1200 ml Balance 160 ml -640 ml Intake Oral 1360 ml 500 ml IV Total 60 ml Output Urine Total 1200 ml 1200 ml Height (Feet): 6 Height (Inches): 3.00 Weight (Pounds): 295 Neck: supple Cardiovascular: normal rate Respiratory/Chest: lungs clear Abdomen: soft Brittney Shepard MD Jun 29, 2018 20:37
[2018-06-30] VITALS: BP 121/68
[2018-06-30] MEDS: HYDROcodone/Acetamin 10/325 tab ORAL PRN ×4 (00:16→22:08)
[2018-06-30 04:00] VITALS: BP 105/56
--- NOTE | 2018-06-30 06:47 | General Progress Note ---
Assessment/Plan Assessment/Plan ASSESSMENT AND RECS: #. Anemia due to underlying iron deficiency. The patient on prior admission given IV iron. --> ferritin is reviewed and is 82, TIBC is approx 200, likely iron repleted --> monitor and trend as needed cbc #. Anemia due to hemodilution with chf overload --> as per cardiology, diuresis is appreciated --> no e/o hemolysis #. Leukopenia in the past. Hepatitis and HIV is negative. --> Ultrasound showed no acute findings. Medications have been reviewed. --> Currently wbc is low --> trend as needed --> given neupogen if anc <1000 #. Borderline mediastinal lymphadenopathy, nonspecific etiology. Multiple small right lung nodules. --> Repeat CT scan in 6 to 12 months. #. Congestive heart failure exacerbation versus asthma. as per Dr. Crum. --> cards and pulm recs reviewed --> diuresis as per goal #. Chronic venous stasis lower extremities. #. Chronic obstructive pulmonary disease exacerbation. Shortness of breath. --> Given steroids and Lasix. #. DVT prophylaxis with heparin. Appreciate consultation greatly! Subjective Constitutional: Denies: no symptoms, chills, diaphoresis, fever, malaise, weakness, other HEENT: Denies: no symptoms, eye pain, blurred vision, tearing, double vision, ear pain, ear discharge, nose pain, nose congestion, throat pain, throat swelling, mouth pain, mouth swelling, other Cardiovascular: Denies: no symptoms, chest pain, edema, irregular heart rate, lightheadedness, palpitations, syncope, other Gastrointestinal/Abdominal: Denies: no symptoms, abdomen distended, abdominal pain, black stools, tarry stools, blood in stool, constipated, diarrhea, difficulty swallowing, nausea, poor appetite, poor fluid intake, rectal bleeding , vomiting, other Genitourinary: Denies: no symptoms, burning, discharge, frequency, flank pain, hematuria, incontinence, pain, urgency, other Neurologic/Psychiatric: Denies: no symptoms, anxiety, depressed, emotional problems, headache, numbness, paresthesia, pre-existing deficit, seizure, tingling, tremors, weakness, other Endocrine: Denies: no symptoms, excessive sweating, flushing, intolerance to cold, intolerance to heat, increased hunger, increased thirst, increased urine, unexplained weight gain, unexplained weight loss, other Allergies: Coded Allergies: PENICILLINS (Verified Allergy, Unknown, 08/31/17) TRAMADOL (Verified Allergy, Unknown, 08/31/17) Subjective Pt awake and alert. No acute events. Objective Last 24 Hour Vital Signs Date Time Temp Pulse Resp B/P (MAP) Pulse Ox O2 Delivery O2 Flow Rate FiO2 06/30/18 04:00 97.6 60 20 105/56 (72) 96 06/30/18 03:34 63 20 Room Air 21 06/30/18 00:00 97.8 56 20 121/68 (85) 100 06/29/18 21:00 Room Air 06/29/18 20:00 98.0 69 20 112/65 (81) 99 06/29/18 18:00 117/65 06/29/18 16:14 97.7 61 20 117/69 (85) 06/29/18 12:49 77 18 100 Room Air 21 06/29/18 12:43 76 18 97 Room Air 21 06/29/18 12:00 97.3 61 22 118/55 (76) 97 06/29/18 09:00 Room Air 06/29/18 08:00 97.1 66 20 109/65 (80) 97 06/29/18 07:32 85 20 100 Room Air 21 06/29/18 07:26 88 20 99 Room Air 21 Intake and Output 06/29/18 06/30/18 19:00 07:00 Intake Total 720 ml Output Total 1200 ml Balance -480 ml Intake Oral 720 ml Output Urine Total 1200 ml # Voids 3 Height (Feet): 6 Height (Inches): 3.00 Weight (Pounds): 297 General Appearance: alert EENT: TMs normal Neck: supple Cardiovascular: regular rhythm Respiratory/Chest: lungs clear Objective PHYSICAL EXAMINATION: VITAL SIGNS: Have been reviewed. has been awake and alert. HEAD AND NECK: Shows mild jvd LUNGS: Decreased breath sounds. Coarse rhonchi. CARDIOVASCULAR: Shows regular S1 and S2 with no gallop or murmur ABDOMEN: Soft. EXTREMITIES: Bilateral 2+ pitting edema. Kade Fermin MD Jun 30, 2018 06:47
[2018-06-30] MEDS: Heparin 5000 units/ml inj SUBQ SCH ×2 (09:00→20:59)
--- NOTE | 2018-06-30 09:41 | Nephrology Progress Note ---
Assessment/Plan Problem List: (1) Anemia, iron deficiency (2) CHF (congestive heart failure) (3) COPD exacerbation Assessment - CHF (congestive heart failure) - COPD exacerbation - Anemia, iron deficiency - HTN Plan no lab today IV Iron- pulm support Taper steroids as needed 2D echo ej Fx 60% done previously- re eval- monitor lytes per orders DC ?? Subjective ROS Limited/Unobtainable: No Objective Objective Last 24 Hour Vital Signs Date Time Temp Pulse Resp B/P (MAP) Pulse Ox O2 Delivery O2 Flow Rate FiO2 06/30/18 04:00 97.6 60 20 105/56 (72) 96 06/30/18 03:34 63 20 Room Air 21 06/30/18 00:00 97.8 56 20 121/68 (85) 100 06/29/18 21:00 Room Air 06/29/18 20:00 98.0 69 20 112/65 (81) 99 06/29/18 18:00 117/65 06/29/18 16:14 97.7 61 20 117/69 (85) 06/29/18 12:49 77 18 100 Room Air 21 06/29/18 12:43 76 18 97 Room Air 21 06/29/18 12:00 97.3 61 22 118/55 (76) 97 Intake and Output 06/29/18 06/30/18 18:59 06:59 Intake Total 720 ml 360 ml Output Total 1200 ml 1450 ml Balance -480 ml -1090 ml Intake Oral 720 ml 360 ml Output Urine Total 1200 ml 1450 ml # Voids 3 # Bowel Movements 1 Height (Feet): 6 Height (Inches): 3.00 Weight (Pounds): 297 General Appearance: no apparent distress Objective no change Jerzy Hardwick MD Jun 30, 2018 09:41
[2018-06-30] MEDS: Aspirin Baby 81mg ORAL SCH (09:56)
[2018-06-30] MEDS: Furosemide 40mg tab ORAL SCH ×2 (09:57→20:50)
[2018-06-30] MEDS: Docusate 100mg cap ORAL SCH ×2 (09:58→17:08)
[2018-06-30] MEDS: Advair 250/50 Inhaler - 14 dose INH SCH ×2 (10:00→21:57)
[2018-06-30 12:00] VITALS: BP 125/68
--- NOTE | 2018-06-30 13:32 | Cardiac Electrophysiology PN ---
Assessment/Plan Assessment/Plan 1. Congestive heart failure due to diastolic dysfunction.On Lasix 80 mg IV b.i.d. 2. Hypertension. On Lotensin 20 mg and Lasix 3. Hyperlipidemia. On Lipitor. 4. Chronic obstructive pulmonary disease. On prednisone 30 daily and Advair. JEANETTE RN OK to DC from cardiac stand point Subjective Subjective Comfortable in NAD on Lasix 80 iv bid.No CP or SOB. DC planning in progress Objective Last 24 Hour Vital Signs Date Time Temp Pulse Resp B/P (MAP) Pulse Ox O2 Delivery O2 Flow Rate FiO2 06/30/18 09:00 105/56 06/30/18 04:00 97.6 60 20 105/56 (72) 96 06/30/18 03:34 63 20 Room Air 21 06/30/18 00:00 97.8 56 20 121/68 (85) 100 06/29/18 21:00 Room Air 06/29/18 20:00 98.0 69 20 112/65 (81) 99 06/29/18 18:00 117/65 06/29/18 16:14 97.7 61 20 117/69 (85) Intake and Output 06/29/18 06/30/18 18:59 06:59 Intake Total 720 ml 360 ml Output Total 1200 ml 1450 ml Balance -480 ml -1090 ml Intake Oral 720 ml 360 ml Output Urine Total 1200 ml 1450 ml # Voids 3 # Bowel Movements 1 Objective HEAD AND NECK: Mild jugular venous distention. LUNGS: Coarse rhonchi. CARDIOVASCULAR: Regular S1 and S2 with no gallop or murmur. ABDOMEN: Soft. EXTREMITIES: Bilateral 1+ pitting edema. Prosper Crum MD Jun 30, 2018 13:32
--- NOTE | 2018-06-30 15:17 | Pulmonology Progress Note ---
Assessment/Plan Assessment/Plan Assessment/Plan ASSESSMENT: The patient is a 62-year-old male, lifelong nonsmoker with a history of congestive heart failure with diastolic dysfunction, pulmonary hypertension, obesity, likely obstructive sleep apnea, known pulmonary nodules, anemia and asthma, presenting with shortness of breath likely secondary to a combination of decompensated heart failure and an exacerbation of his underlying asthma. PROBLEM LIST: 1. Shortness of breath likely secondary to decompensated heart failure and asthma. 2. Asthma with acute exacerbation. 3. CHF with diastolic dysfunction, acute exacerbation. 4. Bilateral lower extremity edema, likely secondary to above. 5. Known scattered bilateral subcentimeter nodules, stable on follow-up imaging with stable lymphadenopathy. 6. Pulmonary HTN 7. Anemia. 8. Hypertension. 9. Obesity. 10. Likely THERON. 11. Elevated D-dimer with a negative duplex and low probability VQ TREATMENT PLAN: 1. Optimize pulmonary hygiene/mobilize as tolerated. 2. P.r.n. O2 to keep saturations greater than 90%. 3. Spect-lpu-ogtfj and p.r.n. bronchodilators. 4. Decrease Solu-Medrol to 30 IV b.i.d. and taper. 5. Observe off antibiotics. 6. Monitor volumes, diurese to keep negative as tolerated. 7. ABG. 8. F/U cardiology recommendations 9. Continue to follow up with [facility] Pul[facility] per the patient. I have advised him to take a copy of his CT's and TTE's to [facility]. It is unclear what kind of pulmonary work up he has had in the past but he needs to have PTF's, PST and a PH w/u (possible RHC) if not already done. He also needs surveillance imaging of his chest CT findings. He states his distance learning technician @ [facility] is aware and is following him regularly. 10. DVT prophylaxis, heparin subcutaneous. 11. Weight-loss diet and exercise discussed again. Subjective Allergies: Coded Allergies: PENICILLINS (Verified Allergy, Unknown, 08/31/17) TRAMADOL (Verified Allergy, Unknown, 08/31/17) Subjective -4L, AFVSS, on RA TTE noted D-dimer elevated, duplex and VQ negative Less SOB, no cough, no SOB, no wheezing, less NELLIE, no FC Objective Vital Signs Noted General Appearance: no acute distress, other - obese male HEENT: normocephalic, atraumatic, anicteric, mucous membranes moist Respiratory/Chest: chest wall non-tender, lungs clear, normal breath sounds, no respiratory distress, no accessory muscle use Cardiovascular: normal peripheral pulses, normal rate, regular rhythm Abdomen: normal bowel sounds, soft, non tender, no organomegaly, non distended , no mass Extremities: no cyanosis, no clubbing, other - 2+ NELLIE Laboratory Tests V Qlow probability 06/24/18 16:00: D-Dimer 2.19H 06/24/18 17:00: Urine Color Pale yellow, Urine Appearance Clear, Urine pH 7, Urine Specific [place] 1.010, Urine Protein Negative, Urine Glucose (UA) Negative, Urine Ketones Negative, Urine Blood Negative, Urine Nitrite Negative, Urine Bilirubin Negative, Urine Urobilinogen Normal, Urine Leukocyte Esterase Negative, Urine RBC 0-2H, Urine WBC 0, Urine Squamous Epithelial Cells Occasional, Urine Bacteria None 06/25/18 04:26: White Blood Count 3.8L, Red Blood Count 4.43L, Hemoglobin 11.2L, Hematocrit 35.6L, Mean Corpuscular Volume 80, Mean Corpuscular Hemoglobin 25.2L, Mean Corpuscular Hemoglobin Concent 31.4L, Red Cell Distribution Width 14.9H, Platelet Count 198, Mean Platelet Volume 6.9, Neutrophils (%) (Auto) 74.9, Lymphocytes (%) (Auto) 22.8, Monocytes (%) (Auto) 1.6, Eosinophils (%) (Auto) 0.1, Basophils (%) (Auto) 0.6, Sodium Level 138, Potassium Level 4.1, Chloride Level 102, Carbon Dioxide Level 30, Anion Gap 6, Blood Urea Nitrogen 24H, Creatinine 1.1, Estimat Glomerular Filtration Rate > 60, Glucose Level 151H, Hemoglobin A1c 6.0, Uric Acid 7.1, Calcium Level 9.3, Phosphorus Level 4.3, Magnesium Level 1.9, Iron Level 29L, Total Iron Binding Capacity 275, Percent Iron Saturation 11L, Unsaturated Iron Binding 246, Total Bilirubin 0.2, Gamma Glutamyl Transpeptidase 30, Aspartate Amino Transf (AST/SGOT) 30, Alanine Aminotransferase (ALT/SGPT) 39, Alkaline Phosphatase 93, Troponin I 0.006, Pro-B -Type Natriuretic Peptide 326H, Total Protein 7.9, Albumin 2.8L, Globulin 5.1, Albumin/Globulin Ratio 0.5L, Triglycerides Level 21L, Cholesterol Level 182, LDL Cholesterol 114H, HDL Cholesterol 58, Cholesterol/HDL Ratio 3.1L, Vitamin B12 Level 1142H, Thyroid Stimulating Hormone (TSH) 0.227L Current Medications Medications (Trade) Dose Ordered Sig/Virgen Route PRN Reason Start Time Stop Time Status Last Admin Dose Admin Acetaminophen (Tylenol) 650 mg Q4H PRN ORAL Mild Pain/Temp > 100.5 06/24/18 00:00 07/24/18 00:00 Acetaminophen/ Hydrocodone Bitart ([place] 10/325) 1 tab Q4H PRN ORAL For Pain 06/24/18 00:00 07/01/18 00:00 06/25/18 11:51 Albuterol/ Ipratropium (Albuterol/ Ipratropium) 3 ml Q4H PRN HHN Shortness of Breath 06/24/18 00:00 06/29/18 00:00 Albuterol/ Ipratropium (Albuterol/ Ipratropium) 3 ml Q6HRT HHN 06/24/18 19:00 06/29/18 18:59 06/25/18 13:03 Aspirin (ASA) 81 mg DAILY ORAL 06/24/18 09:00 07/24/18 08:59 06/25/18 08:49 Atorvastatin Calcium (Lipitor) 10 mg BEDTIME ORAL 06/24/18 21:00 07/24/18 20:59 06/24/18 20:13 Benazepril HCl (Lotensin) 20 mg BID ORAL 06/24/18 09:00 07/24/18 08:59 06/25/18 08:54 Furosemide (Lasix) 80 mg EVERY 12 HOURS IV 06/24/18 21:00 07/24/18 20:59 06/25/18 08:54 Heparin Sodium (Porcine) (Heparin 5000 units/ml) 5,000 units EVERY 12 HOURS SUBQ 06/24/18 09:00 07/24/18 08:59 Iron Sucrose 100 mg/Sodium Chloride 60 ml @ 240 mls/hr BEDTIME IV 06/26/18 21:00 06/30/18 21:14 Iron Sucrose 200 mg/Sodium Chloride 120 ml @ 240 mls/hr ONCE ONCE IV 06/25/18 15:00 06/25/18 15:29 Methylprednisolone Sodium Succinate (Solu-MEDROL) 40 mg EVERY 12 HOURS IVP 06/24/18 21:00 07/24/18 20:59 06/25/18 08:54 Montelukast Sodium (Singulair) 10 mg QPM ORAL 06/24/18 16:30 07/24/18 16:29 06/24/18 16:48 Salmeterol Xinafoate/ Fluticasone (Advair 250/50 Diskus) 1 puffs BIDRT INH 06/24/18 10:00 07/24/18 09:59 06/25/18 09:40 Subjective ROS Limited/Unobtainable: No Allergies: Coded Allergies: PENICILLINS (Verified Allergy, Unknown, 08/31/17) TRAMADOL (Verified Allergy, Unknown, 08/31/17) Objective Last 24 Hour Vital Signs Date Time Temp Pulse Resp B/P (MAP) Pulse Ox O2 Delivery O2 Flow Rate FiO2 06/30/18 09:00 Room Air 06/30/18 09:00 105/56 06/30/18 04:00 97.6 60 20 105/56 (72) 96 06/30/18 03:34 63 20 Room Air 21 06/30/18 00:00 97.8 56 20 121/68 (85) 100 06/29/18 21:00 Room Air 06/29/18 20:00 98.0 69 20 112/65 (81) 99 06/29/18 18:00 117/65 06/29/18 16:14 97.7 61 20 117/69 (85) Intake and Output 06/29/18 06/30/18 19:00 07:00 Intake Total 720 ml 360 ml Output Total 1200 ml 1450 ml Balance -480 ml -1090 ml Intake Oral 720 ml 360 ml Output Urine Total 1200 ml 1450 ml # Voids 3 # Bowel Movements 1 Current Medications Medications (Trade) Dose Ordered Sig/Virgen Route PRN Reason Start Time Stop Time Status Last Admin Dose Admin Acetaminophen (Tylenol) 650 mg Q4H PRN ORAL Mild Pain/Temp > 100.5 06/29/18 00:00 07/24/18 00:00 Acetaminophen/ Hydrocodone Bitart ([place] 10/325) 1 tab Q4H PRN ORAL For Pain 06/29/18 00:00 07/01/18 00:00 06/30/18 14:43 Albuterol/ Ipratropium (Albuterol/ Ipratropium) 3 ml Q4H PRN HHN Shortness of Breath 06/29/18 00:00 07/02/18 00:00 Aspirin (ASA) 81 mg DAILY ORAL 06/29/18 09:00 07/24/18 08:59 06/30/18 09:56 Atorvastatin Calcium (Lipitor) 10 mg BEDTIME ORAL 06/29/18 21:00 07/24/18 20:59 06/29/18 20:13 Benazepril HCl (Lotensin) 20 mg BID ORAL 06/29/18 09:00 07/24/18 08:59 Docusate Sodium (Colace) 100 mg TWICE A DAY ORAL 06/29/18 09:00 07/27/18 08:59 06/30/18 09:58 Furosemide (Lasix) 80 mg Q12HR ORAL 06/29/18 09:00 07/29/18 08:59 06/30/18 09:57 Heparin Sodium (Porcine) (Heparin 5000 units/ml) 5,000 units EVERY 12 HOURS SUBQ 06/29/18 09:00 07/24/18 08:59 Iron Sucrose 100 mg/Sodium Chloride 60 ml @ 240 mls/hr BEDTIME IV 06/29/18 21:00 06/30/18 21:14 06/29/18 20:15 Montelukast Sodium (Singulair) 10 mg QPM ORAL 06/29/18 16:30 07/24/18 16:29 06/29/18 16:57 Prednisone (predniSONE) 20 mg DAILY ORAL 06/30/18 09:00 07/27/18 08:59 06/30/18 09:58 Salmeterol Xinafoate/ Fluticasone (Advair 250/50 Diskus) 1 puffs BIDRT INH 06/28/18 22:45 07/24/18 09:59 06/30/18 10:00 Anival Hsieh MD Jun 30, 2018 15:17
[2018-06-30 16:00] VITALS: BP 135/78
[2018-06-30] MEDS: Montelukast 10mg tablet ORAL SCH (17:08)
[2018-06-30 20:00] VITALS: BP 125/68
--- NOTE | 2018-06-30 20:57 | General Progress Note ---
Assessment/Plan Problem List: (1) Edema ICD Codes: R60.9 - Edema, unspecified SNOMED: 643066590, 211048450 (2) Anemia, iron deficiency ICD Codes: D50.9 - Iron deficiency anemia, unspecified SNOMED: 47720628 (3) CHF (congestive heart failure) ICD Codes: I50.9 - Heart failure, unspecified SNOMED: 30882687 Status: progressing Assessment/Plan dc if ok w cardiology still has edema chf fluid mangement per cardiology and renal Subjective ROS Limited/Unobtainable: Yes Allergies: Coded Allergies: PENICILLINS (Verified Allergy, Unknown, 08/31/17) TRAMADOL (Verified Allergy, Unknown, 08/31/17) Objective Last 24 Hour Vital Signs Date Time Temp Pulse Resp B/P (MAP) Pulse Ox O2 Delivery O2 Flow Rate FiO2 06/30/18 20:00 97.9 64 19 125/68 (87) 97 06/30/18 16:00 98.0 18 135/78 (97) 99 06/30/18 12:00 97.9 64 19 125/68 (87) 97 06/30/18 09:00 Room Air 06/30/18 09:00 105/56 06/30/18 04:00 97.6 60 20 105/56 (72) 96 06/30/18 03:34 63 20 Room Air 21 06/30/18 00:00 97.8 56 20 121/68 (85) 100 06/29/18 21:00 Room Air Intake and Output 06/29/18 06/30/18 19:00 07:00 Intake Total 720 ml 360 ml Output Total 1200 ml 1450 ml Balance -480 ml -1090 ml Intake Oral 720 ml 360 ml Output Urine Total 1200 ml 1450 ml # Voids 3 # Bowel Movements 1 Height (Feet): 6 Height (Inches): 3.00 Weight (Pounds): 297 Respiratory/Chest: lungs clear Abdomen: soft Brittney Shepard MD Jun 30, 2018 20:57
[2018-06-30] MEDS: Iron Sucrose 100 MG in NS 55 ML IV SCH (20:59)
[2018-07-01] VITALS: BP 131/64
[2018-07-01 04:00] VITALS: BP 119/58
[2018-07-01] MEDS ORDERED: HYDROcodone/Acetamin 10/325 tab ORAL PRN (07:30)
[2018-07-01 08:00] VITALS: BP 113/66
[2018-07-01] MEDS: Docusate 100mg cap ORAL SCH (08:20)
[2018-07-01] MEDS: Aspirin Baby 81mg ORAL SCH (08:21)
[2018-07-01] MEDS: Furosemide 40mg tab ORAL SCH (08:22)
[2018-07-01 08:24] VITALS: BP 113/66
[2018-07-01] MEDS: Heparin 5000 units/ml inj SUBQ SCH (08:24)
--- NOTE | 2018-07-01 13:37 | Nephrology Progress Note ---
Assessment/Plan Problem List: (1) Anemia, iron deficiency (2) CHF (congestive heart failure) (3) COPD exacerbation Assessment - CHF (congestive heart failure) - COPD exacerbation - Anemia, iron deficiency - HTN Plan no lab today IV Iron- pulm support Taper steroids as needed 2D echo ej Fx 60% done previously- re eval- monitor lytes per orders DC ?? Subjective ROS Limited/Unobtainable: No Interval Events/Complaints seen 9 am Constitutional: Reports: malaise Objective Objective Last 24 Hour Vital Signs Date Time Temp Pulse Resp B/P (MAP) Pulse Ox O2 Delivery O2 Flow Rate FiO2 07/01/18 08:24 113/66 07/01/18 08:00 Room Air 07/01/18 08:00 113/66 (82) 07/01/18 04:00 98.5 67 19 119/58 (78) 97 07/01/18 00:00 98.9 57 18 131/64 (86) 97 06/30/18 21:00 Room Air 06/30/18 20:00 97.9 64 19 125/68 (87) 97 06/30/18 16:00 98.0 18 135/78 (97) 99 Intake and Output 06/30/18 07/01/18 18:59 06:59 Intake Total 1240 ml 1000 ml Output Total 2000 ml Balance 1240 ml -1000 ml Intake Oral 1240 ml 1000 ml Output Urine Total 2000 ml # Voids 8 Height (Feet): 6 Height (Inches): 3.00 Weight (Pounds): 289 General Appearance: no apparent distress Objective no change Jerzy Hardwick MD Jul 01, 2018 13:37
--- NOTE | 2018-07-01 14:57 | General Progress Note ---
Assessment/Plan Status: stable Assessment/Plan ASSESSMENT AND RECS: #. Anemia due to underlying iron deficiency. The patient on prior admission given IV iron. --> ferritin is reviewed and is 82, TIBC is approx 200, likely iron repleted --> monitor and trend as needed cbc --> Stable #. Anemia due to hemodilution with chf overload --> as per cardiology, diuresis is appreciated --> no e/o hemolysis #. Leukopenia in the past. Hepatitis and HIV is negative. --> Ultrasound showed no acute findings. --> Medications have been reviewed. --> Cont to monitor for improvement. --> given neupogen if anc <1000 #. Borderline mediastinal lymphadenopathy, nonspecific etiology. Multiple small right lung nodules. --> Repeat CT scan in 6 to 12 months. #. Congestive heart failure exacerbation versus asthma. as per Dr. Crum. --> cards and pulm recs reviewed --> diuresis as per goal #. Chronic venous stasis lower extremities. #. Chronic obstructive pulmonary disease exacerbation. Shortness of breath. --> Given steroids and Lasix. #. DVT prophylaxis with heparin. Appreciate consultation greatly! Subjective Date patient seen: Jul 01, 2018 Hematologic/Lymphatic: Reports: anemia Allergies: Coded Allergies: PENICILLINS (Verified Allergy, Unknown, 08/31/17) TRAMADOL (Verified Allergy, Unknown, 08/31/17) All Systems: reviewed and negative except above Subjective Pt awake and alert. No acute events. DC planning. Objective Last 24 Hour Vital Signs Date Time Temp Pulse Resp B/P (MAP) Pulse Ox O2 Delivery O2 Flow Rate FiO2 07/01/18 08:24 113/66 07/01/18 08:00 Room Air 07/01/18 08:00 113/66 (82) 07/01/18 04:00 98.5 67 19 119/58 (78) 97 07/01/18 00:00 98.9 57 18 131/64 (86) 97 06/30/18 21:00 Room Air 06/30/18 20:00 97.9 64 19 125/68 (87) 97 06/30/18 16:00 98.0 18 135/78 (97) 99 Intake and Output 06/30/18 07/01/18 18:59 06:59 Intake Total 1240 ml 1000 ml Output Total 2000 ml Balance 1240 ml -1000 ml Intake Oral 1240 ml 1000 ml Output Urine Total 2000 ml # Voids 8 Height (Feet): 6 Height (Inches): 3.00 Weight (Pounds): 289 General Appearance: no apparent distress, alert Objective PHYSICAL EXAMINATION: VITAL SIGNS: Have been reviewed. has been awake and alert. HEAD AND NECK: Shows mild jvd LUNGS: Decreased breath sounds. Coarse rhonchi. CARDIOVASCULAR: Shows regular S1 and S2 with no gallop or murmur ABDOMEN: Soft. EXTREMITIES: Bilateral 2+ pitting edema. Kade Fermin MD Jul 01, 2018 14:57
--- NOTE | 2018-07-03 09:27 | Discharge Summary ---
Discharge Summary Discharge Summary _ DATE OF ADMISSION: 06/23/2018 DATE OF DISCHARGE: 07/01/2018 REASON FOR ADMISSION: 63 years old male with past medical history of congestive heart failure, hypertension, asthma, obesity, likely obstructive sleep apnea, presented to emergency department with complaint of shortness of breath, leg swelling and general discomfort. Upon evaluation vital signs were stable. Patient initially required supplemetnal oxygen to keep pulse oximetry above 90% . Troponin negative EKG showed normal sinus rhythm, no acute ischemic changes. Chest x-ray with evidence of congestive heart failure . Hemoglobin 11.4 , hematocrit 35.3. Patient was diagnosed with congestive heart failure exacerbation, asthma, anemia and was admitted for further management. CONSULTANTS: advisory software engineer Dr. Metcalf pulmonary Dr. Haji network security consultant Dr. Hardwick register of wills/oncologist Dr. Femrin [place] [employer] COURSE: Patient admitted to monitored floor. Cardiology and pulmonology consults were requested. Echocardiogram revealed preserved ejection fraction of 60% with mild left ventricular hypertrophy. No wall motion abnormality. Right ventricular systolic pressure of 41 consistent with mild pulmonary hypertension. Engine Wiper closely followed. Patient had decompensated congestive heart failure secondary to diastolic dysfunction. Patient started on IV diuretic with close monitoring of volumes and cardiorenal parameters. Blood pressure was managed with beta marlyn and Lasix. Lipid panel revealed elevated LDL. Statin was continued. Patient was educated on low fat low cholesterol cardiac diet. Supplemental oxygen provided as needed to keep pulse oximetry above 9o%. Pulmonary toilet provided around the clock and as needed. Shortness of breath was due to decompensated heart failure and asthma exacerbation. Patient initially started on IV Solu-Medrol with gradual tapering down and then switched to prednisone with further tapering. Patient was observed of antibiotics. DVT prophylaxis provided. Patient noted to have elevated D-dimer. Venous duplex bilateral lower extremity was negative. VQ scan revealed low probability of pulmonary emboli. Patient was recommended weight loss diet and exercise program. Patient follow-up with [facility] pulmonary clinic. Patient is known o bilateral subcentimeter lung nodules and stable lymphadenopathy. Ug Designer recommended for patient to have pulmonary function test , polysomnography and workup for pulmonary hypertension , possibly right heart catheterization, if not already done. Patient will need surveillance imaging of chest CT. Instructional Coordinator/oncologist followed. Anemia workup was consistent with anemia of iron deficiency. Patient was on IV iron. Hemoglobin and hematocrit were closely monitored with goal to keep hemoglobin above 7. Renal parameters and electrolytes were closely monitored. Electrolytes corrected as needed. Nephrotoxins were avoided. Sales Development Director followed. Patient clinically stabilized and was ready for discharge home . Outpatient follow-up with r primary care provider and [facility] pulmonary clinic. FINAL DIAGNOSES: Acute diastolic congestive heart failure, Asthma with acute exacerbation Shortness of breath- secondary to decompensated heart failure and asthma Pulmonary hypertension Anemia Hypertension Obesity Likely obstructive sleep apnea Scattered bilateral subcentimeter lung nodules( known, stable) with stable lymphadenopathy. DISCHARGE MEDICATIONS: See Medication Reconciliation list. DISCHARGE INSTRUCTIONS: Patient was discharged home. Follow up with primary care provider in one week. Follow up with [facility] pulmonary clinic. I have been assigned to dictate discharge summary for this account. I was not involved in the patient's management. Nga Mckee NP Jul 03, 2018 09:27
== END 2018-07-01 08:30 | disposition home or self-care (01) | DRG 194 ==
LOC: EMR 19:38 → 2E 19:40 → EDBEDREQ 20:49 → 4E 06-28 22:54
DX: I11.0 Hypertensive heart disease with heart failure (principal); I27.20 Pulmonary hypertension, unspecified; E46 Unspecified protein-calorie malnutrition; J45.901 Unspecified asthma with (acute) exacerbation; Z68.41 Body mass index [BMI] 40.0-44.9, adult; I50.33 Acute on chronic diastolic (congestive) heart failure; G47.33 Obstructive sleep apnea (adult) (pediatric); D64.9 Anemia, unspecified; E66.9 Obesity, unspecified; R91.8 Other nonspecific abnormal finding of lung field; D50.9 Iron deficiency anemia, unspecified; Z88.6 Allergy status to analgesic agent; Z88.0 Allergy status to penicillin; Z87.891 Personal history of nicotine dependence; I87.8 Other specified disorders of veins; E78.5 Hyperlipidemia, unspecified
CPT/HCPCS: 36415; 36600; 71045; 78579; 78580; 80053; 80061; 81001; 82607; 82728; 82803; 82977; 83036; 83540; 83550; 83735; 83880; 84100; 84443; 84484; 84550; 85025; 85379; 86140; 93005; 93306; 93970; 94640; 94664; 96374; 99285; A9503; J7620

== ENCOUNTER 2018-07-21 13:39 | Inpatient (IN) | payer MEDICAID ==
[~2018-07-21] VITALS: Ht 190.5 cm; Wt 135.6 kg
[~2018-07-21 13:39] MED LIST changes: +NORCO 10-325 T1 EACH ORAL; +SIMVASTATIN20 MG ORAL
[2018-07-21 13:55] VITALS: BP 131/111
[2018-07-21] MEDS ORDERED: Albuterol ud Inhalation HHN ONE ×2 (14:15→15:45)
[2018-07-21] MEDS ORDERED: Ipratropium 0.02% Inh Soln 2.5ml UD HHN ONE (14:15)
--- NOTE | 2018-07-21 14:33 | Diagnostic Imaging Report ---
Indication: Reason For Exam: SOB Technique: One view of the chest Comparison: 06/23/2018 Findings: Stable right hilar vascular fullness. Heart size is normal. Lungs and pleural spaces are clear. Impression: No acute process
[2018-07-21 14:57] LABS: HEMATOCRIT 34.6 % (42.0-52.0); LYMPHOCYTES % (AUTO) 27.6 % (20.0-45.0); MEAN CORPUSCULAR VOLUME 81 FL (80-99); MONOCYTES % (AUTO) 10.8 % (1.0-10.0); NEUTROPHILS % (AUTO) 53.6 % (45.0-75.0); PLATELET COUNT 195 K/UL (150-450); RED BLOOD COUNT 4.27 M/UL (4.70-6.10); RED CELL DISTRIBUTION WIDTH 14.8 % (11.6-14.8); WHITE BLOOD COUNT 6.4 K/UL (4.8-10.8)
[2018-07-21] MEDS ORDERED: FUROSEMIDE20 M1 ORAL (14:58)
[2018-07-21] MEDS ORDERED: NORCO 10-325 T1 EACH ORAL (14:58)
[2018-07-21] MEDS ORDERED: ZOCOR20 MG ORAL (14:58)
[2018-07-21] MEDS ORDERED: IRON325 M1 PO (14:58)
[2018-07-21 15:02] LABS: ANION GAP 5 mmol/L (5-15); BLOOD UREA NITROGEN 24 mg/dL (7-18); CALCIUM 9.5 MG/DL (8.5-10.1); CARBON DIOXIDE 30 MMOL/L (21-32); CHLORIDE 109 MMOL/L (98-107); CREATININE 1.1 MG/DL (0.55-1.30); POTASSIUM 3.8 MMOL/L (3.5-5.1); SODIUM 144 MMOL/L (136-145)
[2018-07-21 15:16] LABS: ALANINE AMINOTRANSFERASE 29 U/L (12-78); ALBUMIN 3.1 G/DL (3.4-5.0); ALBUMIN/GLOBULIN RATIO 0.6 (1.0-2.7); ALKALINE PHOSPHATASE 75 U/L (46-116); ASPARTATE AMINO TRANSFERASE 17 U/L (15-37); BILIRUBIN,TOTAL 0.2 MG/DL (0.2-1.0); CKMB 1.2 NG/ML (0.0-3.6); CREATINE KINASE 104 U/L (26-308)
--- NOTE | 2018-07-21 15:32 | Emergency Room Report ---
History of Present Illness General Chief Complaint: Dyspnea/Respdistress Source: Patient Present Illness HPI This patient states is a history of congestive heart failure. He has had multiple admissions the hospital over the past month. He was most recently admitted to [facility] for renal failure secondary to diuretic use. He states that he had been admitted here to [facility] for fluid overload and was put on 80 mg of Lasix orally daily. He states that he became severely dehydrated and had kidney problems and was admitted to [facility] for the dehydration and kidney disease. He states that he is on 10 mg of Lasix daily. He states that the swelling in his legs have become progressively worse and more severe. He also has had shortness of breath and dyspnea on exertion. He denies chest pain. He denies recent illness. He denies cough or congestion. Denies fever or chills. He has no other complaints. Allergies: Coded Allergies: PENICILLINS (Verified Allergy, Unknown, 08/31/17) TRAMADOL (Verified Allergy, Unknown, 08/31/17) Patient History Past Medical History: see triage record, HTN, [place], CAD, CHF, COPD, renal disease Social History: Denies: smoking, alcohol use, drug use Reviewed Nursing Documentation: PMH: Agreed; PSxH: Agreed Nursing Documentation-PMH Past Medical History: No History, Except For Hx Cardiac Problems: Yes Hx Hypertension: Yes Hx Asthma: Yes Hx COPD: Yes Hx Cancer: No Hx Gastrointestinal Problems: No Hx Neurological Problems: No Review of Systems All Other Systems: negative except mentioned in HPI Physical Exam Vital Signs Date Time Temp Pulse Resp B/P (MAP) Pulse Ox O2 Delivery O2 Flow Rate FiO2 07/21/18 13:48 97.7 89 24 119/54 94 Room Air Sp02 EP Interpretation: reviewed, normal General Appearance: no apparent distress, alert, GCS 15, non-toxic Head: normocephalic, atraumatic Eyes: bilateral eye normal inspection, bilateral eye PERRL ENT: hearing grossly normal, normal pharynx, no angioedema, normal voice Neck: full range of motion, supple/symm/no masses Respiratory: chest non-tender, no respiratory distress, no retraction, no accessory muscle use, speaking full sentences, wheezing, expiration Cardiovascular #1: regular rate, rhythm, no edema, edema - 4+edema BLE Gastrointestinal: normal bowel sounds, non tender, soft, non-distended, no guarding, no rebound Rectal: deferred Musculoskeletal: back normal, normal range of motion, swelling - 4+edema BLE Neurologic: alert, oriented x3, responsive, motor strength/tone normal, sensory intact, speech normal Psychiatric: judgement/insight normal, memory normal, mood/affect normal, no suicidal/homicidal ideation Skin: normal color, no rash, warm/dry, well hydrated Medical Decision Making Diagnostic Impression: Primary Impression: CHF (congestive heart failure) Additional Impression: COPD exacerbation ER Course This patient presents with obvious right-sided heart failure. The patient has severe lower extremity edema. I also suspect that he is on too low a dose of Lasix. He also has a concurrent COPD exacerbation with wheezing on exam. There is no evidence of pulmonary edema on chest x-ray. He was given albuterol , Atrovent and oral prednisone and admitted for further pulmonary hygiene and diuresis. Laboratory Tests Test 07/21/18 14:25 White Blood Count 6.4 K/UL (4.8-10.8) Red Blood Count 4.27 M/UL (4.70-6.10) L Hemoglobin 11.0 G/DL (14.2-18.0) L Hematocrit 34.6 % (42.0-52.0) L Mean Corpuscular Volume 81 FL (80-99) Mean Corpuscular Hemoglobin 25.9 PG (27.0-31.0) L Mean Corpuscular Hemoglobin Concent 32.0 G/DL (32.0-36.0) Red Cell Distribution Width 14.8 % (11.6-14.8) Platelet Count 195 K/UL (150-450) Mean Platelet Volume 8.4 FL (6.5-10.1) Neutrophils (%) (Auto) 53.6 % (45.0-75.0) Lymphocytes (%) (Auto) 27.6 % (20.0-45.0) Monocytes (%) (Auto) 10.8 % (1.0-10.0) H Eosinophils (%) (Auto) 7.0 % (0.0-3.0) H Basophils (%) (Auto) 1.0 % (0.0-2.0) Prothrombin Time 10.1 SEC (9.30-11.50) Prothrombin Time INR 1.0 (0.9-1.1) PTT 25 SEC (23-33) Sodium Level 144 MMOL/L (136-145) Potassium Level 3.8 MMOL/L (3.5-5.1) Chloride Level 109 MMOL/L (98-107) H Carbon Dioxide Level 30 MMOL/L (21-32) Anion Gap 5 mmol/L (5-15) Blood Urea Nitrogen 24 mg/dL (7-18) H Creatinine 1.1 MG/DL (0.55-1.30) Estimate Glomerular Filtration Rate > 60 mL/min (>60) Glucose Level 94 MG/DL (74-106) Calcium Level 9.5 MG/DL (8.5-10.1) Total Bilirubin 0.2 MG/DL (0.2-1.0) Aspartate Amino Transferase (AST) 17 U/L (15-37) Alanine Aminotransferase (ALT) 29 U/L (12-78) Alkaline Phosphatase 75 U/L (46-116) Total Creatine Kinase 104 U/L (26-308) Creatine Kinase MB 1.2 NG/ML (0.0-3.6) Creatine Kinase MB Relative Index 1.1 Troponin I 0.011 ng/mL (0.000-0.056) Total Protein 8.3 G/DL (6.4-8.2) H Albumin 3.1 G/DL (3.4-5.0) L Globulin 5.2 g/dL Albumin/Globulin Ratio 0.6 (1.0-2.7) L EKG Diagnostic Results Rate: normal Rhythm: NSR ST Segments: no acute changes Rhythm Strip Diag. Results EP Interpretation: yes Rate: 70's Rhythm: NSR, no PVC's, no ectopy Chest X-Ray Diagnostic Results Chest X-Ray Diagnostic Results : Chest X-Ray Ordered: Yes # of Views/Limited/Complete: 1 View Indication: Shortness of Breath EP Interpretation: Yes Interpretation: no consolidation, no effusion, no pneumothorax, no acute cardiopulmonary disease Impression: No acute disease Electronically Signed by: Letha Last Vital Signs Date Time Temp Pulse Resp B/P (MAP) Pulse Ox O2 Delivery O2 Flow Rate FiO2 07/21/18 13:55 98.0 82 20 131/111 95 Room Air Status: improved Disposition: ADMITTED INPATIENT Condition: Serious Referrals: Brittney Shepard MD (PCP) Yris Friedman DO Jul 21, 2018 15:32
[2018-07-21 15:52] VITALS: BP 139/60
[2018-07-21 16:10] VITALS: BP 101/60
[2018-07-21] MEDS ORDERED: HYDROcodone/Acetamin 10/325 tab ORAL PRN (17:00)
[2018-07-21 20:00] VITALS: BP 141/52
[2018-07-21] MEDS: HYDROcodone/Acetamin 10/325 tab ORAL PRN (21:43)
[2018-07-21] MEDS: Heparin 5000 units/ml inj SUBQ SCH (22:15)
[2018-07-21] MEDS: Advair 250/50 Inhaler - 14 dose INH SCH (22:16)
[2018-07-22] VITALS: BP 110/52
[2018-07-22 04:00] VITALS: BP 136/70
[2018-07-22] MEDS: HYDROcodone/Acetamin 10/325 tab ORAL PRN ×5 (04:35→22:47)
[2018-07-22 08:00] VITALS: BP 133/70
[2018-07-22] MEDS ORDERED: Furosemide 40mg tab ORAL SCH (09:00)
[2018-07-22] MEDS: Heparin 5000 units/ml inj SUBQ SCH ×2 (09:00→21:00)
[2018-07-22] MEDS: Advair 250/50 Inhaler - 14 dose INH SCH ×2 (09:01→20:06)
[2018-07-22] MEDS: Aspirin Baby 81mg ORAL SCH (09:19)
[2018-07-22 12:00] VITALS: BP 139/59
[2018-07-22] MEDS ORDERED: LORazepam 1mg tab ORAL PRN (12:30)
--- NOTE | 2018-07-22 12:31 | Consultation ---
History of Present Illness General Chief Complaint: Dyspnea/Respdistress Present Illness HPI 63 yo male with history of depression vs bipolar d/o, congestive heart failure. He has had multiple admissions the hospital over the past month, the pt is non-compliant and has med seeking behavior. The pt was severely agitated and angry the pt was uncooperative and the security was called. the pt was yelling and using profanity. the pt has poor insight. 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 the pt stated that we are not taking care of him and we are not "doctors" The pt is screaming at staff and would refuse meds sporadically. Allergies: Coded Allergies: PENICILLINS (Verified Allergy, Unknown, 08/31/17) TRAMADOL (Verified Allergy, Unknown, 08/31/17) Medication History Scheduled Aspirin* (Aspirin*), 81 MG ORAL DAILY, (Reported) Benazepril Hcl* (Benazepril Hcl*), 10 MG ORAL BID, (Reported) Fluticasone/Salmeterol (Advair 250-50 Diskus), 1 PUFF INH EVERY 12 HOURS, ( Reported) Furosemide* (Lasix*), 40 MG ORAL DAILY, (Reported) Furosemide* (Lasix*), 10 MG ORAL TWICE A DAY, (Reported) Montelukast Sodium* (Singulair*), 10 MG ORAL DAILY, (Reported) Simvastatin (Zocor), 20 MG ORAL BEDTIME, (Reported) Simvastatin (Zocor), 20 MG ORAL BEDTIME, (Reported) Scheduled PRN Hydrocodone Bit/Acetaminophen 10-325* (Oketo 10-325*), 1 TAB ORAL Q4H PRN for For Pain, (Reported) Hydrocodone Bit/Acetaminophen 10-325* (Oketo 10-325*), 1 TAB ORAL Q4H PRN for For Pain, (Reported) Miscellaneous Medications Ferrous Sulfate (Iron), Unknown Dose PO, (Reported) Patient History Limited by: medical condition History Provided By: Patient, Medical Record, PMD Healthcare decision maker Resuscitation status Full Code Advanced Directive on File No Past Medical/Surgical History Past Medical/Surgical History: (1) MDD (major depressive disorder) (2) Nausea & vomiting (3) Edema (4) Anemia, iron deficiency (5) COPD exacerbation (6) CHF (congestive heart failure) Review of Systems Psychiatric: Reports: prior hx, anxiety, depressed feelings, emotional problems Physical Exam General Appearance: alert, severe distress, agitated Neurologic: oriented x 3, responsive, depressed affect Last 24 Hour Vital Signs Date Time Temp Pulse Resp B/P (MAP) Pulse Ox O2 Delivery O2 Flow Rate FiO2 07/22/18 12:00 98.3 65 20 139/59 (85) 95 07/22/18 09:01 84 21 96 Room Air 21 07/22/18 09:01 84 21 96 Room Air 21 07/22/18 09:00 Room Air Room Air 07/22/18 08:00 98.3 81 20 133/70 (91) 96 07/22/18 07:42 83 07/22/18 04:00 64 07/22/18 04:00 98.3 70 20 136/70 (92) 98 07/22/18 00:00 71 07/22/18 00:00 98.0 75 20 110/52 (71) 98 07/21/18 22:22 81 20 96 Room Air 21 07/21/18 22:19 81 20 96 Room Air 21 07/21/18 21:00 Room Air 07/21/18 20:00 99.6 83 20 141/52 (81) 99 07/21/18 20:00 81 07/21/18 16:40 Room Air 07/21/18 16:30 83 07/21/18 16:19 98.0 74 23 139/60 99 Room Air 07/21/18 16:10 97.0 85 24 101/60 (74) 94 07/21/18 15:53 92 20 99 Room Air 21 07/21/18 15:52 98.2 74 23 139/60 99 Room Air 21 07/21/18 15:39 80 20 99 Room Air 21 07/21/18 15:39 21 07/21/18 13:55 98.0 82 20 131/111 95 Room Air 07/21/18 13:55 82 20 Room Air 07/21/18 13:48 97.7 89 24 119/54 94 Room Air Intake and Output 07/21/18 07/22/18 19:00 07:00 Intake Total 200 ml 360 ml Output Total 800 ml 600 ml Balance -600 ml -240 ml Intake Oral 200 ml 360 ml Output Urine Total 800 ml 600 ml # Voids 1 3 Laboratory Tests Test 07/21/18 14:25 White Blood Count 6.4 K/UL (4.8-10.8) Red Blood Count 4.27 M/UL (4.70-6.10) L Hemoglobin 11.0 G/DL (14.2-18.0) L Hematocrit 34.6 % (42.0-52.0) L Mean Corpuscular Volume 81 FL (80-99) Mean Corpuscular Hemoglobin 25.9 PG (27.0-31.0) L Mean Corpuscular Hemoglobin Concent 32.0 G/DL (32.0-36.0) Red Cell Distribution Width 14.8 % (11.6-14.8) Platelet Count 195 K/UL (150-450) Mean Platelet Volume 8.4 FL (6.5-10.1) Neutrophils (%) (Auto) 53.6 % (45.0-75.0) Lymphocytes (%) (Auto) 27.6 % (20.0-45.0) Monocytes (%) (Auto) 10.8 % (1.0-10.0) H Eosinophils (%) (Auto) 7.0 % (0.0-3.0) H Basophils (%) (Auto) 1.0 % (0.0-2.0) Prothrombin Time 10.1 SEC (9.30-11.50) Prothromb Time International Ratio 1.0 (0.9-1.1) Activated Partial Thromboplast Time 25 SEC (23-33) Sodium Level 144 MMOL/L (136-145) Potassium Level 3.8 MMOL/L (3.5-5.1) Chloride Level 109 MMOL/L (98-107) H Carbon Dioxide Level 30 MMOL/L (21-32) Anion Gap 5 mmol/L (5-15) Blood Urea Nitrogen 24 mg/dL (7-18) H Creatinine 1.1 MG/DL (0.55-1.30) Estimat Glomerular Filtration Rate > 60 mL/min (>60) Glucose Level 94 MG/DL (74-106) Calcium Level 9.5 MG/DL (8.5-10.1) Total Bilirubin 0.2 MG/DL (0.2-1.0) Aspartate Amino Transf (AST/SGOT) 17 U/L (15-37) Alanine Aminotransferase (ALT/SGPT) 29 U/L (12-78) Alkaline Phosphatase 75 U/L (46-116) Total Creatine Kinase 104 U/L (26-308) Creatine Kinase MB 1.2 NG/ML (0.0-3.6) Creatine Kinase MB Relative Index 1.1 Troponin I 0.011 ng/mL (0.000-0.056) Total Protein 8.3 G/DL (6.4-8.2) H Albumin 3.1 G/DL (3.4-5.0) L Globulin 5.2 g/dL Albumin/Globulin Ratio 0.6 (1.0-2.7) L Height (Feet): 6 Height (Inches): 3.00 Weight (Pounds): 315 Medications Current Medications Medications (Trade) Dose Ordered Sig/Virgen Route PRN Reason Start Time Stop Time Status Last Admin Dose Admin Acetaminophen (Tylenol) 650 mg Q4H PRN ORAL Mild Pain/Temp > 100.5 07/21/18 17:00 08/20/18 16:59 Acetaminophen/ Hydrocodone Bitart (Oketo 10/325) 1 tab Q4H PRN ORAL For Pain 07/21/18 17:00 07/28/18 16:59 07/22/18 09:19 Aspirin (ASA) 81 mg DAILY ORAL 07/22/18 09:00 08/21/18 08:59 07/22/18 09:19 Divalproex Sodium (Depakote ER) 750 mg BEDTIME ORAL 07/22/18 21:00 08/21/18 20:59 Ferrous Sulfate (Feosol) 325 mg DAILY ORAL 07/22/18 09:00 08/21/18 08:59 07/22/18 09:19 Furosemide (Lasix) 40 mg DAILY ORAL 07/22/18 09:00 08/21/18 08:59 07/22/18 09:19 Heparin Sodium (Porcine) (Heparin 5000 units/ml) 5,000 units EVERY 12 HOURS SUBQ 07/21/18 22:15 08/20/18 22:14 Lorazepam (Ativan) 2 mg Q6H PRN ORAL For Anxiety 07/22/18 12:30 07/29/18 12:29 Montelukast Sodium (Singulair) 10 mg Q24H ORAL 07/22/18 17:00 08/21/18 16:59 Salmeterol Xinafoate/ Fluticasone (Advair 250/50 Diskus) 1 puffs EVERY 12 HOURS INH 07/21/18 21:00 08/20/18 20:59 07/22/18 09:01 Assessment/Plan Problem List: (1) MDD (major depressive disorder) ICD Codes: F32.9 - Major depressive disorder, single episode, unspecified SNOMED: [id number] Status: unchanged Assessment/Plan depakote er 750mg qhs as the pt is angry ativan prn for agitation the pt stated that he wanted norco the pt was provided with ro/st MIPS Medication Reconciliation 130 Medication Reconciliation VS - Last 72 Hours, by Label Date Time Temp Pulse Resp B/P (MAP) Pulse Ox O2 Delivery O2 Flow Rate FiO2 07/22/18 12:00 98.3 65 20 139/59 (85) 95 07/22/18 09:01 84 21 96 Room Air 21 07/22/18 09:01 84 21 96 Room Air 21 07/22/18 09:00 Room Air Room Air 07/22/18 08:00 98.3 81 20 133/70 (91) 96 07/22/18 07:42 83 07/22/18 04:00 64 07/22/18 04:00 98.3 70 20 136/70 (92) 98 07/22/18 00:00 71 07/22/18 00:00 98.0 75 20 110/52 (71) 98 07/21/18 22:22 81 20 96 Room Air 21 07/21/18 22:19 81 20 96 Room Air 21 07/21/18 21:00 Room Air 07/21/18 20:00 99.6 83 20 141/52 (81) 99 07/21/18 20:00 81 07/21/18 16:40 Room Air 07/21/18 16:30 83 07/21/18 16:19 98.0 74 23 139/60 99 Room Air 07/21/18 16:10 97.0 85 24 101/60 (74) 94 07/21/18 15:53 92 20 99 Room Air 21 07/21/18 15:52 98.2 74 23 139/60 99 Room Air 21 07/21/18 15:39 80 20 99 Room Air 21 07/21/18 15:39 21 07/21/18 13:55 98.0 82 20 131/111 95 Room Air 07/21/18 13:55 82 20 Room Air 07/21/18 13:48 97.7 89 24 119/54 94 Room Air BMI was documented today or within the past year. BMI was outside normal parameters, and the patient received counseling. Is this a Psycho/Diag encounte: Yes Unhealthy Alcohol Use 431 (psycho/diag only) Patient was screened for tobacco use today or within the past 2 years. Patient was NOT identified as a tobacco user. Tobacco Use 226 (psycho/diag only) Patient was screened for tobacco use today or within the past 2 years. Patient was NOT identified as a tobacco user. Depression 134,411,370 (psycho/diag only) Depression follow-up Plan Additional Evaluation Pharmacologic intervention Psychotherapy Other: Does this Patient have Dementi: No Alejandro Norman MD Jul 22, 2018 12:31
--- NOTE | 2018-07-22 15:40 | Cardiac Electrophysiology PN ---
Subjective Subjective [id number] Objective Last 24 Hour Vital Signs Date Time Temp Pulse Resp B/P (MAP) Pulse Ox O2 Delivery O2 Flow Rate FiO2 07/22/18 12:00 98.3 65 20 139/59 (85) 95 07/22/18 11:36 68 07/22/18 09:01 84 21 96 Room Air 21 07/22/18 09:01 84 21 96 Room Air 21 07/22/18 09:00 Room Air Room Air 07/22/18 08:00 98.3 81 20 133/70 (91) 96 07/22/18 07:42 83 07/22/18 04:00 64 07/22/18 04:00 98.3 70 20 136/70 (92) 98 07/22/18 00:00 71 07/22/18 00:00 98.0 75 20 110/52 (71) 98 07/21/18 22:22 81 20 96 Room Air 21 07/21/18 22:19 81 20 96 Room Air 21 07/21/18 21:00 Room Air 07/21/18 20:00 99.6 83 20 141/52 (81) 99 07/21/18 20:00 81 07/21/18 16:40 Room Air 07/21/18 16:30 83 07/21/18 16:19 98.0 74 23 139/60 99 Room Air 07/21/18 16:10 97.0 85 24 101/60 (74) 94 07/21/18 15:53 92 20 99 Room Air 21 07/21/18 15:52 98.2 74 23 139/60 99 Room Air 21 Intake and Output 07/21/18 07/22/18 19:00 07:00 Intake Total 200 ml 360 ml Output Total 800 ml 600 ml Balance -600 ml -240 ml Intake Oral 200 ml 360 ml Output Urine Total 800 ml 600 ml # Voids 1 3 Prosper Crum MD Jul 22, 2018 15:40
--- NOTE | 2018-07-22 15:58 | Consultation ---
Consult Note Consult Note DATE OF CONSULTATION: 07/22/2018 PULMONARY CONSULTATION CONSULTING PHYSICIAN: Rashad Haji M.D. REFERRING PHYSICIAN: Brittney Shpeard M.D. REASON FOR CONSULTATION: Shortness of breath. HISTORY OF PRESENT ILLNESS: The patient is a 63-year-old male with multiple admissions for CHF and COPD, was recently discharged on Lasix and then states he was admitted to [facility] with [place] 2/2 diuretic use, subsequently his diuretics were decreased and for the past few days he has noticed increased SOB, PND, orthopnea and NELLIE, no cough, no wheezing, no F/C. PAST MEDICAL HISTORY: 1. Congestive heart failure. 2. Obesity. 3. Likely THERON. 4. Asthma. 5. Hypertension. 6. Anemia. 7. Protein-calorie malnutrition. ALLERGIES: Penicillin and tramadol. MEDICATIONS: Prior to admission medications reviewed. Current medications reviewed. SOCIAL HISTORY: No tobacco, alcohol, or drug use. FAMILY HISTORY: Noncontributory. REVIEW OF SYSTEMS: Negative other than history of present illness. PHYSICAL EXAMINATION: Last 24 Hour Vital Signs Date Time Temp Pulse Resp B/P (MAP) Pulse Ox O2 Delivery O2 Flow Rate FiO2 07/22/18 12:00 98.3 65 20 139/59 (85) 95 07/22/18 11:36 68 07/22/18 09:01 84 21 96 Room Air 21 07/22/18 09:01 84 21 96 Room Air 21 07/22/18 09:00 Room Air Room Air 07/22/18 08:00 98.3 81 20 133/70 (91) 96 07/22/18 07:42 83 07/22/18 04:00 64 07/22/18 04:00 98.3 70 20 136/70 (92) 98 07/22/18 00:00 71 07/22/18 00:00 98.0 75 20 110/52 (71) 98 07/21/18 22:22 81 20 96 Room Air 21 07/21/18 22:19 81 20 96 Room Air 21 07/21/18 21:00 Room Air 07/21/18 20:00 99.6 83 20 141/52 (81) 99 07/21/18 20:00 81 07/21/18 16:40 Room Air 07/21/18 16:30 83 07/21/18 16:19 98.0 74 23 139/60 99 Room Air 07/21/18 16:10 97.0 85 24 101/60 (85) 94 GENERAL: He is a well-developed, well-nourished male, in no acute distress. Awake, alert, and oriented x3. HEENT: Normocephalic and atraumatic. Oropharynx clear with moist mucous membranes. NECK: Supple without lymphadenopathy. JVP is elevated. CHEST: Clear. Decreased at the bases. Faint end-expiratory wheezing. HEART: Regular rhythm. ABDOMEN: Soft and nondistended. EXTREMITIES: No cyanosis, clubbing, 2+ NELLIE ANCILLARY DATA: CXR: NAD DUPLEX: No DVT Labs Test 07/21/18 14:25 White Blood Count 6.4 K/UL (4.8-10.8) Red Blood Count 4.27 M/UL (4.70-6.10) Hemoglobin 11.0 G/DL (14.2-18.0) Hematocrit 34.6 % (42.0-52.0) Mean Corpuscular Volume 81 FL (80-99) Mean Corpuscular Hemoglobin 25.9 PG (27.0-31.0) Mean Corpuscular Hemoglobin Concent 32.0 G/DL (32.0-36.0) Red Cell Distribution Width 14.8 % (11.6-14.8) Platelet Count 195 K/UL (150-450) Mean Platelet Volume 8.4 FL (6.5-10.1) Neutrophils (%) (Auto) 53.6 % (45.0-75.0) Lymphocytes (%) (Auto) 27.6 % (20.0-45.0) Monocytes (%) (Auto) 10.8 % (1.0-10.0) Eosinophils (%) (Auto) 7.0 % (0.0-3.0) Basophils (%) (Auto) 1.0 % (0.0-2.0) Prothrombin Time 10.1 SEC (9.30-11.50) Prothromb Time International Ratio 1.0 (0.9-1.1) Activated Partial Thromboplast Time 25 SEC (23-33) Sodium Level 144 MMOL/L (136-145) Potassium Level 3.8 MMOL/L (3.5-5.1) Chloride Level 109 MMOL/L (98-107) Carbon Dioxide Level 30 MMOL/L (21-32) Anion Gap 5 mmol/L (5-15) Blood Urea Nitrogen 24 mg/dL (7-18) Creatinine 1.1 MG/DL (0.55-1.30) Estimat Glomerular Filtration Rate > 60 mL/min (>60) Glucose Level 94 MG/DL (74-106) Calcium Level 9.5 MG/DL (8.5-10.1) Total Bilirubin 0.2 MG/DL (0.2-1.0) Aspartate Amino Transf (AST/SGOT) 17 U/L (15-37) Alanine Aminotransferase (ALT/SGPT) 29 U/L (12-78) Alkaline Phosphatase 75 U/L (46-116) Total Creatine Kinase 104 U/L (26-308) Creatine Kinase MB 1.2 NG/ML (0.0-3.6) Creatine Kinase MB Relative Index 1.1 Troponin I 0.011 ng/mL (0.000-0.056) Total Protein 8.3 G/DL (6.4-8.2) Albumin 3.1 G/DL (3.4-5.0) Globulin 5.2 g/dL Albumin/Globulin Ratio 0.6 (1.0-2.7) Assessment/Plan ASSESSMENT: The patient is a 63-year-old male, lifelong nonsmoker with a history of congestive heart failure with diastolic dysfunction, pulmonary hypertension, obesity, likely obstructive sleep apnea, known pulmonary nodules, anemia and asthma, presenting with shortness of breath likely secondary to decompensated heart failure PROBLEM LIST: 1. Shortness of breath likely secondary to decompensated heart failure 2. Asthma without evidence of exacerbation. 3. CHF with diastolic dysfunction, acute exacerbation. 4. Bilateral lower extremity edema, likely secondary to above. 5. Known scattered bilateral subcentimeter nodules, stable on follow-up - per patient being followed up by PULMONARY @ [facility] 6. Anemia. 7. Hypertension. 8. Obesity. 9. Likely THERON. TREATMENT PLAN: 1. Optimize pulmonary hygiene/mobilize as tolerated. 2. P.r.n. O2 to keep saturations greater than 90%. 3. RTC and PRN HHN's 4. Advair 250/50 5. Observe off antibiotics and steroids 6. Monitor volumes, diurese to keep negative as tolerated. 7. F/U cardiology and renal recs 8. Encourage compliance 9. Continue to follow up with [facility] Pulmonary Clinic per the patient. 10. DVT prophylaxis, heparin subcutaneous. 11. Weight-loss diet and exercise discussed again. Rashad Haji MD Jul 22, 2018 15:58
[2018-07-22 16:00] VITALS: BP 143/80
--- NOTE | 2018-07-22 17:14 | General Progress Note ---
Assessment/Plan Assessment/Plan (1) B/L LE pain (2) Edema (3) B/L knee pain (4) B/L Knee OA (5) Morbid obesity Pt to be continued on [place]. D/w Dr. Hurley and he concurred. Subjective Date patient seen: Jul 22, 2018 Time patient seen: 05:00 - pm Allergies: Coded Allergies: PENICILLINS (Verified Allergy, Unknown, 08/31/17) TRAMADOL (Verified Allergy, Unknown, 08/31/17) Subjective REVIEW OF SYSTEMS: Denies rash, fever, chills, sweating, dizziness, drowsiness, blurred vision, sore throat, or change in weight. No shortness of breath or chest pain. No nausea, vomiting, diarrhea, or blood in the stool or urine. No bowel or bladder incontinence. No dysuria. He is complaining of bilateral lower extremity pain. SUBJECTIVE: Patient is a known patient from prior admission. Has been admitted under the care of Dr. Shepard. Still has c/o knee pain. Started on [place] 10/325mg PO 1 tab Q4H PRN. Pain is tolerated well no new complaints at this time. Objective Last 24 Hour Vital Signs Date Time Temp Pulse Resp B/P (MAP) Pulse Ox O2 Delivery O2 Flow Rate FiO2 07/22/18 12:00 98.3 65 20 139/59 (85) 95 07/22/18 11:36 68 07/22/18 09:01 84 21 96 Room Air 21 07/22/18 09:01 84 21 96 Room Air 21 07/22/18 09:00 Room Air Room Air 07/22/18 08:00 98.3 81 20 133/70 (91) 96 07/22/18 07:42 83 07/22/18 04:00 64 07/22/18 04:00 98.3 70 20 136/70 (92) 98 07/22/18 00:00 71 07/22/18 00:00 98.0 75 20 110/52 (71) 98 07/21/18 22:22 81 20 96 Room Air 21 07/21/18 22:19 81 20 96 Room Air 21 07/21/18 21:00 Room Air 07/21/18 20:00 99.6 83 20 141/52 (81) 99 07/21/18 20:00 81 Intake and Output 07/21/18 07/22/18 19:00 07:00 Intake Total 200 ml 360 ml Output Total 800 ml 600 ml Balance -600 ml -240 ml Intake Oral 200 ml 360 ml Output Urine Total 800 ml 600 ml # Voids 1 3 Height (Feet): 6 Height (Inches): 3.00 Weight (Pounds): 315 Objective GENERAL: Alert, awake, and oriented. LUNGS: Decreased breath sounds bilaterally. HEART: S1 and S2 regular. ABDOMEN: Obese. EXTREMITIES: Severe edema noted in bilateral lower extremities. Leonel Singer Jul 22, 2018 17:14
[2018-07-22] MEDS: Montelukast 10mg tablet ORAL SCH (17:36)
--- NOTE | 2018-07-22 19:42 | Cardiology Report ---
APPROVED REPORT EKG Measurement Heart [id number] Normal sinus rhythm Normal ECG
[2018-07-22] MEDS: Albuterol/Ipratropium 3ml neb HHN SCH (19:58)
[2018-07-22 20:00] VITALS: BP 135/70
--- NOTE | 2018-07-22 20:45 | History and Physical Report ---
DATE OF ADMISSION: 07/21/2018 HISTORY OF PRESENT ILLNESS: The patient has a history of recurrent admissions for CHF exacerbation and edema and has multiple admissions. The patient is being admitted to rule out fluid management and fluid overload. Denies fever or chills. The patient does have orthopnea and worsening leg edema. Also, denies nausea, vomiting, and diarrhea. The patient denies any chills. The patient denies headache. Denies chest pain as well. PAST MEDICAL HISTORY: Significant for CHF, hypertension, asthma, COPD, CAD, status post AL, chronic renal insufficiency, iron-deficiency anemia, and hyperlipidemia. PAST SURGICAL HISTORY: Denies. SOCIAL HISTORY: Denies smoking, alcohol, or illicit drugs. MEDICATIONS: Aspirin, benazepril, ferrous sulfate, Lasix, Singular, and simvastatin. ALLERGIES: Tramadol and penicillin causes syncope. REVIEW OF SYSTEMS: HEENT: Denies headaches. RESPIRATORY: Denies cough. Does have occasional shortness of breath and orthopnea. CARDIOVASCULAR: Reports orthopnea. GASTROINTESTINAL: Denies nausea, vomiting, or diarrhea. Does have lower extremity worsening leg edema. [place]OLF [place]UNTER: No change in vision or speech pattern. Feels weak. PHYSICAL EXAMINATION: VITAL SIGNS: Temperature 98, pulse 75, and blood pressure 110/52. HEENT: PERRLA. NECK: Supple. No lymphadenopathy. CHEST: Bibasilar rales. CARDIOVASCULAR: Regular rate and rhythm. ABDOMEN: Soft and distended. EXTREMITIES: Does have pitting edema 3+ in the lower extremities. The patient does have edema especially in the lower extremities. Moves otherwise lower extremities. LABORATORY DATA: WBC of 6.4, hemoglobin 11, and platelets 195,000. Sodium 144, potassium 3.8, BUN of 24, and creatinine 1.1. Chest x-ray shows no acute process. ASSESSMENT: 1. Congestive heart failure exacerbation. 2. Worsening leg edema. 3. History of coronary artery disease. 4. Myocardial infarction. 5. Hypertension. PLAN: I have asked Dr. Crum, Dr. Hardwick, and Dr. Haji to see the patient for the fluid management and congestive heart failure management. Brittney Shepard M.D. DR: LINDSAY JOB#: [id number] CC:
[2018-07-22] MEDS: Depakote ER 250mg tab ORAL SCH (21:00)
--- NOTE | 2018-07-22 23:15 | Consultation ---
DATE OF CONSULTATION: 07/22/2018 CARDIOLOGY CONSULTATION CONSULTING PHYSICIAN: Prosper Crum M.D. REFERRING PHYSICIAN: Brittney Shepard M.D. REASON FOR CONSULTATION: Exacerbation of congestive heart failure. HISTORY OF PRESENT ILLNESS: The patient is a 63-year-old gentleman with history of hypertension, diastolic dysfunction, as well as hyperlipidemia and chronic obstructive pulmonary disease, was recently discharged from the hospital 7 months ago. The patient apparently went to the [facility] after discharge and they decreased his Lasix, which was on 80 mg daily. The patient was discharged on 10 mg of Lasix daily and noted increased swelling in his legs that was getting worse and increasing shortness of breath. The patient was admitted and a Cardiology consultation was obtained for further evaluation and management. PAST MEDICAL HISTORY: As mentioned above. ALLERGIES: He is allergic to penicillin and tramadol. FAMILY HISTORY: Noncontributory. SOCIAL HISTORY: Does not smoke or drink alcohol. REVIEW OF SYSTEMS: Negative other than what is mentioned in the history of present illness. PHYSICAL EXAMINATION: VITAL SIGNS: Blood pressure is 139/59, pulse is 65, respirations 20, and temperature 98.3. HEAD AND NECK: Shows positive JVD. LUNGS: Decreased breath sounds. CARDIOVASCULAR: Shows regular S1 and S2 with no gallop or murmur. ABDOMEN: Soft. EXTREMITIES: A 3+ bilateral pitting edema. LABORATORY DATA: Labs show white count 6.4, hemoglobin 11, hematocrit 34.6, and platelet count is 195,000. Sodium 145, potassium 3.8, BUN of 24, creatinine 1.1, and glucose of 94. Troponin negative x2. His BNP is 326. ASSESSMENT AND PLAN: 1. Bilateral lower extremity edema. This is likely due to congestive heart failure with diastolic dysfunction as well as chronic lymphedema. His BNP is only 200. We will put him on Lasix 40 mg IV b.i.d. and watch him clinically. His echocardiogram showed normal left ventricular systolic function. 2. Hypertension. Continue Lasix at this time. 3. Chronic obstructive pulmonary disease. 4. Morbid obesity. 5. Hyperlipidemia. It is of note that on previous admission, the patient was on Lotensin 20 mg daily as well as Lasix. Thank you very much, Dr. Shepard, for allowing me to participate in the care of this patient. Please do not hesitate to contact me for any questions regarding my evaluation. Prosper Crum M.D. DR: AMEE JOB#: [id number] CC:
[2018-07-23] VITALS: BP 137/59
[2018-07-23] MEDS: Albuterol/Ipratropium 3ml neb HHN SCH ×4 (01:38→21:31)
[2018-07-23] MEDS: HYDROcodone/Acetamin 10/325 tab ORAL PRN ×5 (02:59→20:07)
[2018-07-23 04:00] VITALS: BP 129/65
[2018-07-23 08:00] VITALS: BP 128/57
[2018-07-23] MEDS: Aspirin Baby 81mg ORAL SCH (08:08)
[2018-07-23] MEDS: Heparin 5000 units/ml inj SUBQ SCH ×2 (08:09→21:00)
[2018-07-23] MEDS: Advair 250/50 Inhaler - 14 dose INH SCH ×2 (08:56→21:30)
--- NOTE | 2018-07-23 11:30 | General Progress Note ---
Assessment/Plan Problem List: (1) Edema ICD Codes: R60.9 - Edema, unspecified SNOMED: 165653252, 242523778 (2) CHF (congestive heart failure) ICD Codes: I50.9 - Heart failure, unspecified SNOMED: 33311557 (3) Anemia, iron deficiency ICD Codes: D50.9 - Iron deficiency anemia, unspecified SNOMED: 48147941 Status: progressing Assessment/Plan chf exacerbation worsening renal failure due to overdiuresis fluid mangement signigicant leg edema Subjective Respiratory: Reports: shortness of breath, SOB with excertion Allergies: Coded Allergies: PENICILLINS (Verified Allergy, Unknown, 08/31/17) TRAMADOL (Verified Allergy, Unknown, 08/31/17) Objective Last 24 Hour Vital Signs Date Time Temp Pulse Resp B/P (MAP) Pulse Ox O2 Delivery O2 Flow Rate FiO2 07/23/18 09:00 Room Air Room Air 07/23/18 08:56 88 18 97 Room Air 21 07/23/18 08:56 83 18 97 Room Air 21 07/23/18 08:00 98.5 79 20 128/57 (80) 99 07/23/18 08:00 75 07/23/18 07:19 67 18 100 Room Air 21 07/23/18 07:12 21 07/23/18 07:12 87 18 99 Room Air 21 07/23/18 04:00 57 07/23/18 04:00 98.6 67 19 129/65 (86) 97 07/23/18 01:44 52 20 100 Room Air 21 07/23/18 01:36 76 20 99 Room Air 21 07/23/18 00:00 98.6 68 19 137/59 (85) 96 07/23/18 00:00 65 07/22/18 21:00 Room Air Room Air 07/22/18 20:08 76 20 99 Room Air 21 07/22/18 20:06 67 20 99 Room Air 21 07/22/18 20:05 77 20 99 Room Air 21 07/22/18 20:00 98.7 75 18 135/70 (91) 98 07/22/18 20:00 77 07/22/18 19:55 66 20 99 Room Air 21 07/22/18 16:00 97.9 56 20 143/80 (101) 97 07/22/18 15:28 70 07/22/18 12:00 98.3 65 20 139/59 (85) 95 07/22/18 11:36 68 Intake and Output 07/22/18 07/23/18 19:00 07:00 Intake Total 780 ml 1200 ml Output Total 1300 ml 4000 ml Balance -520 ml -2800 ml Intake Oral 780 ml 1200 ml Output Urine Total 1300 ml 4000 ml # Bowel Movements 1 Height (Feet): 6 Height (Inches): 3.00 Weight (Pounds): 314 Respiratory/Chest: lungs clear Abdomen: soft Brittney Shepard MD Jul 23, 2018 11:30
--- NOTE | 2018-07-23 11:35 | Cardiac Electrophysiology PN ---
Assessment/Plan Assessment/Plan 1. Bilateral lower extremity edema. This is likely due to congestive heart failure with diastolic dysfunction as well as chronic lymphedema. His BNP is only 200.Continue Lasix 40 mg IV b.i.d. His echocardiogram showed normal left ventricular systolic function. 2. Hypertension. Continue Lasix at this time. 3. Chronic obstructive pulmonary disease. 4. Morbid obesity. 5. Hyperlipidemia. DW RN Subjective Subjective Diuresing well.No CP or SOB Objective Last 24 Hour Vital Signs Date Time Temp Pulse Resp B/P (MAP) Pulse Ox O2 Delivery O2 Flow Rate FiO2 07/23/18 09:00 Room Air Room Air 07/23/18 08:56 88 18 97 Room Air 21 07/23/18 08:56 83 18 97 Room Air 21 07/23/18 08:00 98.5 79 20 128/57 (80) 99 07/23/18 08:00 75 07/23/18 07:19 67 18 100 Room Air 21 07/23/18 07:12 21 07/23/18 07:12 87 18 99 Room Air 21 07/23/18 04:00 57 07/23/18 04:00 98.6 67 19 129/65 (86) 97 07/23/18 01:44 52 20 100 Room Air 21 07/23/18 01:36 76 20 99 Room Air 21 07/23/18 00:00 98.6 68 19 137/59 (85) 96 07/23/18 00:00 65 07/22/18 21:00 Room Air Room Air 07/22/18 20:08 76 20 99 Room Air 21 07/22/18 20:06 67 20 99 Room Air 21 07/22/18 20:05 77 20 99 Room Air 21 07/22/18 20:00 98.7 75 18 135/70 (91) 98 07/22/18 20:00 77 07/22/18 19:55 66 20 99 Room Air 21 07/22/18 16:00 97.9 56 20 143/80 (101) 97 07/22/18 15:28 70 07/22/18 12:00 98.3 65 20 139/59 (85) 95 07/22/18 11:36 68 Intake and Output 07/22/18 07/23/18 19:00 07:00 Intake Total 780 ml 1200 ml Output Total 1300 ml 4000 ml Balance -520 ml -2800 ml Intake Oral 780 ml 1200 ml Output Urine Total 1300 ml 4000 ml # Bowel Movements 1 Microbiology Date/Time Source Procedure Growth Status 07/21/18 17:00 Nasal Nares MRSA Culture - Final NO METHICILLIN RESISTANT STAPH AUREUS... Complete 07/21/18 17:00 Rectum VRE Culture - Final NO VANCOMYCIN RESISTANT ENTEROCOCCUS ... Complete 07/21/18 17:00 Rectum - Final NO CARBAPENEM-RESISTANT ENTEROBACTERI... Complete Objective HEAD AND NECK: Positive JVD. LUNGS: Decreased breath sounds. CARDIOVASCULAR: Regular S1 and S2 with no gallop or murmur. ABDOMEN: Soft. EXTREMITIES: 2+ bilateral pitting edema. Prosper Crum MD Jul 23, 2018 11:34
[2018-07-23 12:00] VITALS: BP 119/62
--- NOTE | 2018-07-23 12:49 | General Progress Note ---
Assessment/Plan Problem List: (1) MDD (major depressive disorder) ICD Codes: F32.9 - Major depressive disorder, single episode, unspecified SNOMED: 522957738 Status: unchanged Assessment/Plan depakote er 750mg qhs as the pt is angry ativan prn for agitation the pt stated that he wanted norco the pt was provided with ro/st Subjective Neurologic/Psychiatric: Reports: anxiety, depressed, emotional problems Allergies: Coded Allergies: PENICILLINS (Verified Allergy, Unknown, 08/31/17) TRAMADOL (Verified Allergy, Unknown, 08/31/17) Subjective The pt hostile and agitated. The pt was yelling and disrespectful Objective Last 24 Hour Vital Signs Date Time Temp Pulse Resp B/P (MAP) Pulse Ox O2 Delivery O2 Flow Rate FiO2 07/23/18 09:00 Room Air Room Air 07/23/18 08:56 88 18 97 Room Air 21 07/23/18 08:56 83 18 97 Room Air 21 07/23/18 08:00 98.5 79 20 128/57 (80) 99 07/23/18 08:00 75 07/23/18 07:19 67 18 100 Room Air 21 07/23/18 07:12 21 07/23/18 07:12 87 18 99 Room Air 21 07/23/18 04:00 57 07/23/18 04:00 98.6 67 19 129/65 (86) 97 07/23/18 01:44 52 20 100 Room Air 21 07/23/18 01:36 76 20 99 Room Air 21 07/23/18 00:00 98.6 68 19 137/59 (85) 96 07/23/18 00:00 65 07/22/18 21:00 Room Air Room Air 07/22/18 20:08 76 20 99 Room Air 21 07/22/18 20:06 67 20 99 Room Air 21 07/22/18 20:05 77 20 99 Room Air 21 07/22/18 20:00 98.7 75 18 135/70 (91) 98 07/22/18 20:00 77 07/22/18 19:55 66 20 99 Room Air 21 07/22/18 16:00 97.9 56 20 143/80 (101) 97 07/22/18 15:28 70 Intake and Output 07/22/18 07/23/18 19:00 07:00 Intake Total 780 ml 1200 ml Output Total 1300 ml 4000 ml Balance -520 ml -2800 ml Intake Oral 780 ml 1200 ml Output Urine Total 1300 ml 4000 ml # Bowel Movements 1 Height (Feet): 6 Height (Inches): 3.00 Weight (Pounds): 314 General Appearance: alert, agitated, overweight Alejandro Norman MD Jul 23, 2018 12:48
--- NOTE | 2018-07-23 13:23 | Pulmonology Progress Note ---
Assessment/Plan Problems: (1) COPD exacerbation (2) Edema (3) CHF (congestive heart failure) (4) Anemia, iron deficiency (5) Nausea & vomiting (6) MDD (major depressive disorder) Assessment/Plan ASSESSMENT: The patient is a 63-year-old male, lifelong nonsmoker with a history of congestive heart failure with diastolic dysfunction, pulmonary hypertension, obesity, likely obstructive sleep apnea, known pulmonary nodules, anemia and asthma, presenting with shortness of breath likely secondary to decompensated heart failure PROBLEM LIST: 1. Shortness of breath likely secondary to decompensated heart failure 2. Asthma without evidence of exacerbation. 3. CHF with diastolic dysfunction, acute exacerbation. 4. Bilateral lower extremity edema, likely secondary to above. 5. Known scattered bilateral subcentimeter nodules, stable on follow-up - per patient being followed up by PULMONARY @ [facility] 6. Anemia. 7. Hypertension. 8. Obesity. 9. Likely THERON. TREATMENT PLAN: 1. Optimize pulmonary hygiene/mobilize as tolerated. 2. P.r.n. O2 to keep saturations greater than 90%. 3. RTC and PRN HHN's 4. Advair 250/50 5. Observe off antibiotics and steroids 6. Monitor volumes, diurese to keep negative as tolerated. Monitor renal function with diuretics 7. F/U cardiology and renal recs 8. Encourage compliance 9. Continue to follow up with [facility] Pulmonary [facility] per the patient. 10. DVT prophylaxis, heparin subcutaneous. 11. Weight-loss diet and exercise discussed again. Subjective Allergies: Coded Allergies: PENICILLINS (Verified Allergy, Unknown, 08/31/17) TRAMADOL (Verified Allergy, Unknown, 08/31/17) Subjective -3.3L, AFVSS, stable on RA Less SOB, still with NELLIE, no cough, no wheezing, no CP, no F/C Objective Last 24 Hour Vital Signs Date Time Temp Pulse Resp B/P (MAP) Pulse Ox O2 Delivery O2 Flow Rate FiO2 07/23/18 13:14 Room Air 21 07/23/18 13:14 Room Air 21 07/23/18 09:00 Room Air Room Air 07/23/18 08:56 88 18 97 Room Air 21 07/23/18 08:56 83 18 97 Room Air 21 07/23/18 08:00 98.5 79 20 128/57 (80) 99 07/23/18 08:00 75 07/23/18 07:19 67 18 100 Room Air 21 07/23/18 07:12 21 07/23/18 07:12 87 18 99 Room Air 21 07/23/18 04:00 57 07/23/18 04:00 98.6 67 19 129/65 (86) 97 07/23/18 01:44 52 20 100 Room Air 21 07/23/18 01:36 76 20 99 Room Air 21 07/23/18 00:00 98.6 68 19 137/59 (85) 96 07/23/18 00:00 65 07/22/18 21:00 Room Air Room Air 07/22/18 20:08 76 20 99 Room Air 21 07/22/18 20:06 67 20 99 Room Air 21 07/22/18 20:05 77 20 99 Room Air 21 07/22/18 20:00 98.7 75 18 135/70 (91) 98 07/22/18 20:00 77 07/22/18 19:55 66 20 99 Room Air 21 07/22/18 16:00 97.9 56 20 143/80 (101) 97 07/22/18 15:28 70 Intake and Output 07/22/18 07/23/18 19:00 07:00 Intake Total 780 ml 1200 ml Output Total 1300 ml 4000 ml Balance -520 ml -2800 ml Intake Oral 780 ml 1200 ml Output Urine Total 1300 ml 4000 ml # Bowel Movements 1 General Appearance: no acute distress, other - obese HEENT: normocephalic, atraumatic, anicteric, mucous membranes moist Respiratory/Chest: chest wall non-tender, lungs clear - except for faint BiB rales Cardiovascular: normal peripheral pulses, normal rate, regular rhythm Abdomen: normal bowel sounds, soft, non tender, no organomegaly, non distended , no mass Extremities: no cyanosis, no clubbing, other - 2+ NELLIE Microbiology Date/Time Source Procedure Growth Status 07/21/18 17:00 Nasal Nares MRSA Culture - Final NO METHICILLIN RESISTANT STAPH AUREUS... Complete 07/21/18 17:00 Rectum VRE Culture - Final NO VANCOMYCIN RESISTANT ENTEROCOCCUS ... Complete 07/21/18 17:00 Rectum - Final NO CARBAPENEM-RESISTANT ENTEROBACTERI... Complete Current Medications Medications (Trade) Dose Ordered Sig/Virgen Route PRN Reason Start Time Stop Time Status Last Admin Dose Admin Acetaminophen (Tylenol) 650 mg Q4H PRN ORAL Mild Pain/Temp > 100.5 07/21/18 17:00 08/20/18 16:59 Acetaminophen/ Hydrocodone Bitart ([place] 10/325) 1 tab Q4H PRN ORAL For Pain 07/21/18 17:00 07/28/18 16:59 07/23/18 12:22 Albuterol/ Ipratropium (Albuterol/ Ipratropium) 3 ml Q6HRT HHN 07/22/18 19:00 07/27/18 18:59 07/23/18 07:18 Aspirin (ASA) 81 mg DAILY ORAL 07/22/18 09:00 08/21/18 08:59 07/23/18 08:08 Divalproex Sodium (Depakote ER) 750 mg BEDTIME ORAL 07/22/18 21:00 08/21/18 20:59 Ferrous Sulfate (Feosol) 325 mg DAILY ORAL 07/22/18 09:00 08/21/18 08:59 07/23/18 08:08 Furosemide (Lasix) 40 mg EVERY 12 HOURS IV 07/22/18 21:00 08/21/18 20:59 07/23/18 08:08 Heparin Sodium (Porcine) (Heparin 5000 units/ml) 5,000 units EVERY 12 HOURS SUBQ 07/21/18 22:15 08/20/18 22:14 Lorazepam (Ativan) 2 mg Q6H PRN ORAL For Anxiety 07/22/18 12:30 07/29/18 12:29 Montelukast Sodium (Singulair) 10 mg Q24H ORAL 07/22/18 17:00 08/21/18 16:59 07/22/18 17:36 Salmeterol Xinafoate/ Fluticasone (Advair 250/50 Diskus) 1 puffs EVERY 12 HOURS INH 07/21/18 21:00 08/20/18 20:59 07/23/18 08:56 Rashad Haji MD Jul 23, 2018 13:23
[2018-07-23 16:00] VITALS: BP 126/78
[2018-07-23] MEDS: Montelukast 10mg tablet ORAL SCH (16:07)
[2018-07-23 20:00] VITALS: BP 164/64
[2018-07-23] MEDS: Depakote ER 250mg tab ORAL SCH (21:00)
[2018-07-24] VITALS: BP 125/69
[2018-07-24] MEDS: HYDROcodone/Acetamin 10/325 tab ORAL PRN ×6 (00:08→20:58)
[2018-07-24] MEDS: Albuterol/Ipratropium 3ml neb HHN SCH ×4 (01:00→19:57)
[2018-07-24 04:00] VITALS: BP 124/64
[2018-07-24 08:00] VITALS: BP 134/60
[2018-07-24] MEDS: Aspirin Baby 81mg ORAL SCH (08:40)
[2018-07-24] MEDS: Heparin 5000 units/ml inj SUBQ SCH ×2 (08:41→21:00)
[2018-07-24] MEDS: Advair 250/50 Inhaler - 14 dose INH SCH ×2 (10:32→20:48)
--- NOTE | 2018-07-24 10:48 | Cardiac Electrophysiology PN ---
Assessment/Plan Assessment/Plan 1. Bilateral lower extremity edema. This is likely due to congestive heart failure with diastolic dysfunction as well as chronic lymphedema. His BNP is only 200.Continue Lasix 40 mg IV b.i.d. His echocardiogram showed normal left ventricular systolic function. 2. Hypertension. Continue Lasix at this time. 3. Chronic obstructive pulmonary disease. 4. Morbid obesity. 5. Hyperlipidemia. DW RN Subjective Subjective Diuresing well on iv LAsix. Wheezing Objective Last 24 Hour Vital Signs Date Time Temp Pulse Resp B/P (MAP) Pulse Ox O2 Delivery O2 Flow Rate FiO2 07/24/18 09:00 Room Air Room Air 07/24/18 08:00 98.3 66 18 134/60 (84) 98 07/24/18 08:00 70 07/24/18 07:38 67 18 100 Room Air 21 07/24/18 07:31 80 20 99 Room Air 21 07/24/18 07:31 21 07/24/18 04:00 97.9 65 18 124/64 (84) 96 07/24/18 03:52 54 07/24/18 02:00 Room Air 21 07/24/18 02:00 Room Air 21 07/24/18 00:00 97.5 63 18 125/69 (87) 98 07/23/18 23:20 69 07/23/18 21:33 81 18 98 Room Air 21 07/23/18 21:32 80 18 96 Room Air 21 07/23/18 21:00 Room Air Room Air 07/23/18 20:00 97.9 74 21 164/64 (97) 99 07/23/18 19:40 78 20 99 Room Air 21 07/23/18 19:30 75 20 98 Room Air 21 07/23/18 19:13 71 07/23/18 16:00 71 07/23/18 16:00 98.9 63 20 126/78 (94) 100 07/23/18 13:14 Room Air 21 07/23/18 13:14 Room Air 21 07/23/18 12:00 54 07/23/18 12:00 98.3 58 19 119/62 (81) 96 Intake and Output 07/23/18 07/24/18 18:59 06:59 Intake Total 1800 ml 1460 ml Output Total 3400 ml 4600 ml Balance -1600 ml -3140 ml Intake Oral 1800 ml 500 ml Other 960 ml Output Urine Total 3400 ml 4600 ml # Voids 3 Microbiology Date/Time Source Procedure Growth Status 07/21/18 17:00 Nasal Nares MRSA Culture - Final NO METHICILLIN RESISTANT STAPH AUREUS... Complete 07/21/18 17:00 Rectum VRE Culture - Final NO VANCOMYCIN RESISTANT ENTEROCOCCUS ... Complete 07/21/18 17:00 Rectum - Final NO CARBAPENEM-RESISTANT ENTEROBACTERI... Complete Objective HEAD AND NECK: Positive JVD. LUNGS: Decreased breath sounds and wheezing CARDIOVASCULAR: Regular S1 and S2 with no gallop or murmur. ABDOMEN: Soft. EXTREMITIES: 2+ bilateral pitting edema. Prosper Crum MD Jul 24, 2018 10:48
--- NOTE | 2018-07-24 11:32 | Pulmonology Progress Note ---
Assessment/Plan Problems: (1) COPD exacerbation (2) Edema (3) CHF (congestive heart failure) (4) Anemia, iron deficiency (5) Nausea & vomiting (6) MDD (major depressive disorder) Assessment/Plan ASSESSMENT: The patient is a 63-year-old male, lifelong nonsmoker with a history of congestive heart failure with diastolic dysfunction, pulmonary hypertension, obesity, likely obstructive sleep apnea, known pulmonary nodules, anemia and asthma, presenting with shortness of breath likely secondary to decompensated heart failure PROBLEM LIST: 1. Shortness of breath likely secondary to decompensated heart failure 2. Asthma without evidence of exacerbation. 3. CHF with diastolic dysfunction, acute exacerbation. 4. Bilateral lower extremity edema, likely secondary to above. 5. Known scattered bilateral subcentimeter nodules, stable on follow-up - per patient being followed up by PULMONARY @ [facility] 6. Anemia. 7. Hypertension. 8. Obesity. 9. Likely THERON. TREATMENT PLAN: 1. Optimize pulmonary hygiene/mobilize as tolerated. 2. P.r.n. O2 to keep saturations greater than 90%. 3. RTC and PRN HHN's 4. Advair 250/50 5. Start Pred 60 and taper 6. Monitor volumes, diurese to keep negative as tolerated. Monitor renal function with diuretics 7. F/U cardiology and renal recs 8. Encourage compliance 9. Continue to follow up with [facility] Pulmonary Clinic per the patient. 10. DVT prophylaxis, heparin subcutaneous. 11. Weight-loss diet and exercise discussed again. Subjective Allergies: Coded Allergies: PENICILLINS (Verified Allergy, Unknown, 08/31/17) TRAMADOL (Verified Allergy, Unknown, 08/31/17) Subjective diuresis, AFVSS, stable on RA Less SOB, less NELLIE, no cough, increase wheezing, no CP, no F/C Objective Last 24 Hour Vital Signs Date Time Temp Pulse Resp B/P (MAP) Pulse Ox O2 Delivery O2 Flow Rate FiO2 07/24/18 09:00 Room Air Room Air 07/24/18 08:00 98.3 66 18 134/60 (84) 98 07/24/18 08:00 70 07/24/18 07:38 67 18 100 Room Air 21 07/24/18 07:31 80 20 99 Room Air 21 07/24/18 07:31 21 07/24/18 04:00 97.9 65 18 124/64 (84) 96 07/24/18 03:52 54 07/24/18 02:00 Room Air 21 07/24/18 02:00 Room Air 21 07/24/18 00:00 97.5 63 18 125/69 (87) 98 07/23/18 23:20 69 07/23/18 21:33 81 18 98 Room Air 21 07/23/18 21:32 80 18 96 Room Air 21 07/23/18 21:00 Room Air Room Air 07/23/18 20:00 97.9 74 21 164/64 (97) 99 07/23/18 19:40 78 20 99 Room Air 21 07/23/18 19:30 75 20 98 Room Air 21 07/23/18 19:13 71 07/23/18 16:00 71 07/23/18 16:00 98.9 63 20 126/78 (94) 100 07/23/18 13:14 Room Air 21 07/23/18 13:14 Room Air 21 07/23/18 12:00 54 07/23/18 12:00 98.3 58 19 119/62 (81) 96 Intake and Output 07/23/18 07/24/18 18:59 06:59 Intake Total 1800 ml 1460 ml Output Total 3400 ml 4600 ml Balance -1600 ml -3140 ml Intake Oral 1800 ml 500 ml Other 960 ml Output Urine Total 3400 ml 4600 ml # Voids 3 General Appearance: WD/WN, no acute distress HEENT: normocephalic, atraumatic, anicteric, mucous membranes moist Respiratory/Chest: chest wall non-tender, lungs clear, normal breath sounds, no respiratory distress Cardiovascular: normal peripheral pulses, normal rate, regular rhythm Abdomen: normal bowel sounds, soft, non tender, no organomegaly, non distended , no mass Extremities: no cyanosis, no clubbing, no edema Microbiology Date/Time Source Procedure Growth Status 07/21/18 17:00 Nasal Nares MRSA Culture - Final NO METHICILLIN RESISTANT STAPH AUREUS... Complete 07/21/18 17:00 Rectum VRE Culture - Final NO VANCOMYCIN RESISTANT ENTEROCOCCUS ... Complete 07/21/18 17:00 Rectum - Final NO CARBAPENEM-RESISTANT ENTEROBACTERI... Complete Current Medications Medications (Trade) Dose Ordered Sig/Virgen Route PRN Reason Start Time Stop Time Status Last Admin Dose Admin Acetaminophen (Tylenol) 650 mg Q4H PRN ORAL Mild Pain/Temp > 100.5 07/21/18 17:00 08/20/18 16:59 Acetaminophen/ Hydrocodone Bitart ([place] 10/325) 1 tab Q4H PRN ORAL For Pain 07/21/18 17:00 07/28/18 16:59 07/24/18 08:40 Albuterol/ Ipratropium (Albuterol/ Ipratropium) 3 ml Q6HRT HHN 07/22/18 19:00 07/27/18 18:59 07/24/18 07:31 Aspirin (ASA) 81 mg DAILY ORAL 07/22/18 09:00 08/21/18 08:59 07/24/18 08:40 Divalproex Sodium (Depakote ER) 750 mg BEDTIME ORAL 07/22/18 21:00 08/21/18 20:59 Ferrous Sulfate (Feosol) 325 mg DAILY ORAL 07/22/18 09:00 08/21/18 08:59 07/24/18 08:40 Furosemide (Lasix) 40 mg EVERY 12 HOURS IV 07/22/18 21:00 08/21/18 20:59 07/24/18 10:10 Heparin Sodium (Porcine) (Heparin 5000 units/ml) 5,000 units EVERY 12 HOURS SUBQ 07/21/18 22:15 08/20/18 22:14 Lorazepam (Ativan) 2 mg Q6H PRN ORAL For Anxiety 07/22/18 12:30 07/29/18 12:29 Montelukast Sodium (Singulair) 10 mg Q24H ORAL 07/22/18 17:00 08/21/18 16:59 07/23/18 16:07 Salmeterol Xinafoate/ Fluticasone (Advair 250/50 Diskus) 1 puffs EVERY 12 HOURS INH 07/21/18 21:00 08/20/18 20:59 07/24/18 10:32 Rashad Haji MD Jul 24, 2018 11:32
[2018-07-24 12:00] VITALS: BP 139/66
[2018-07-24 16:00] VITALS: BP 137/69
[2018-07-24] MEDS: Montelukast 10mg tablet ORAL SCH (17:11)
[2018-07-24 20:00] VITALS: BP 110/49
[2018-07-24] MEDS: Depakote ER 250mg tab ORAL SCH (21:00)
--- NOTE | 2018-07-24 22:40 | General Progress Note ---
Assessment/Plan Problem List: (1) MDD (major depressive disorder) ICD Codes: F32.9 - Major depressive disorder, single episode, unspecified SNOMED: 295240467 Status: stable Assessment/Plan depakote er 750mg qhs as the pt is angry ativan prn for agitation the pt stated that he wanted norco the pt was provided with ro/st Subjective Neurologic/Psychiatric: Reports: anxiety, depressed, emotional problems Allergies: Coded Allergies: PENICILLINS (Verified Allergy, Unknown, 08/31/17) TRAMADOL (Verified Allergy, Unknown, 08/31/17) Subjective The pt hostile and agitated. no change Objective Last 24 Hour Vital Signs Date Time Temp Pulse Resp B/P (MAP) Pulse Ox O2 Delivery O2 Flow Rate FiO2 07/24/18 21:00 Room Air Room Air 07/24/18 20:12 60 16 100 Room Air 21 07/24/18 20:11 60 20 95 Room Air 21 07/24/18 20:10 60 20 95 Room Air 21 07/24/18 20:00 98.0 66 20 110/49 (69) 99 07/24/18 20:00 60 07/24/18 19:59 21 07/24/18 19:58 59 20 94 Room Air 21 07/24/18 17:13 98.2 07/24/18 16:00 98.2 60 18 137/69 (91) 99 07/24/18 16:00 58 07/24/18 12:44 62 20 100 Room Air 21 07/24/18 12:37 21 07/24/18 12:37 76 20 98 Room Air 21 07/24/18 12:00 98.2 105 20 139/66 (90) 97 07/24/18 12:00 55 07/24/18 10:25 88 18 96 Room Air 21 07/24/18 10:25 84 18 96 Room Air 21 07/24/18 09:00 Room Air Room Air 07/24/18 08:00 98.3 66 18 134/60 (84) 98 07/24/18 08:00 70 07/24/18 07:38 67 18 100 Room Air 21 07/24/18 07:31 80 20 99 Room Air 21 07/24/18 07:31 21 07/24/18 04:00 97.9 65 18 124/64 (84) 96 07/24/18 03:52 54 12/6/18 02:00 Room Air 21 07/24/18 02:00 Room Air 21 07/24/18 00:00 97.5 63 18 125/69 (87) 98 07/23/18 23:20 69 Intake and Output 07/23/18 07/24/18 19:00 07:00 Intake Total 1800 ml 1460 ml Output Total 3400 ml 4600 ml Balance -1600 ml -3140 ml Intake Oral 1800 ml 500 ml Other 960 ml Output Urine Total 3400 ml 4600 ml # Voids 3 Height (Feet): 6 Height (Inches): 3.00 Weight (Pounds): 309 General Appearance: alert, agitated, overweight Neurologic: oriented x 3, responsive Alejandro Norman MD Jul 24, 2018 22:40
[2018-07-25] VITALS: BP 124/57
[2018-07-25] MEDS: Albuterol/Ipratropium 3ml neb HHN SCH ×4 (00:28→19:45)
[2018-07-25] MEDS: HYDROcodone/Acetamin 10/325 tab ORAL PRN ×6 (01:00→22:33)
[2018-07-25 04:00] VITALS: BP 140/65
--- NOTE | 2018-07-25 06:39 | General Progress Note ---
Assessment/Plan Assessment/Plan ASSESSMENT AND RECS: #. Anemia due to underlying iron deficiency. The patient on prior admission given IV iron. --> ferritin is reviewed and is 82, TIBC is approx 200, likely iron repleted --> monitor and trend as needed cbc --> Stable and monitor #. Anemia due to hemodilution with chf overload --> as per cardiology, diuresis as required --> no e/o hemolysis #. Borderline mediastinal lymphadenopathy, nonspecific etiology. Multiple small right lung nodules. --> Repeat CT scan in 6 to 12 months. --> f/u with [facility] #. Leukopenia in the past. Hepatitis and HIV is negative. --> Ultrasound showed no acute findings. --> Medications have been reviewed. --> Cont to monitor for improvement. --> given neupogen if anc <1000 #. Congestive heart failure exacerbation versus asthma. as per Dr. Crum. --> cards and pulm recs reviewed --> diuresis as per goal #. Chronic venous stasis lower extremities. #. Chronic obstructive pulmonary disease exacerbation. Shortness of breath. --> Given steroids and Lasix. #. Psych disorder as per Dr. Norman #. DVT prophylaxis with heparin. Appreciate consultation greatly! Subjective Constitutional: Denies: no symptoms, chills, diaphoresis, fever, malaise, weakness, other HEENT: Denies: no symptoms, eye pain, blurred vision, tearing, double vision, ear pain, ear discharge, nose pain, nose congestion, throat pain, throat swelling, mouth pain, mouth swelling, other Cardiovascular: Denies: no symptoms, chest pain, edema, irregular heart rate, lightheadedness, palpitations, syncope, other Respiratory: Denies: no symptoms, cough, orthopnea, shortness of breath, SOB with excertion, SOB at rest, sputum, stridor, wheezing, other Gastrointestinal/Abdominal: Denies: no symptoms, abdomen distended, abdominal pain, black stools, tarry stools, blood in stool, constipated, diarrhea, difficulty swallowing, nausea, poor appetite, poor fluid intake, rectal bleeding , vomiting, other Genitourinary: Denies: no symptoms, burning, discharge, frequency, flank pain, hematuria, incontinence, pain, urgency, other Neurologic/Psychiatric: Denies: no symptoms, anxiety, depressed, emotional problems, headache, numbness, paresthesia, pre-existing deficit, seizure, tingling, tremors, weakness, other Hematologic/Lymphatic: Denies: no symptoms, anemia, easy bleeding, easy bruising, other Allergies: Coded Allergies: PENICILLINS (Verified Allergy, Unknown, 08/31/17) TRAMADOL (Verified Allergy, Unknown, 08/31/17) Subjective breathing today better, wants something for pain Objective Last 24 Hour Vital Signs Date Time Temp Pulse Resp B/P (MAP) Pulse Ox O2 Delivery O2 Flow Rate FiO2 07/25/18 04:00 51 07/25/18 04:00 98.0 52 20 140/65 (90) 94 07/25/18 00:40 60 18 97 Room Air 21 07/25/18 00:30 21 07/25/18 00:29 58 18 96 Room Air 21 07/25/18 00:00 98.0 53 20 124/57 (79) 94 07/25/18 00:00 59 07/24/18 21:00 Room Air Room Air 07/24/18 20:12 60 16 100 Room Air 21 07/24/18 20:11 60 20 95 Room Air 21 07/24/18 20:10 60 20 95 Room Air 21 07/24/18 20:00 98.0 66 20 110/49 (69) 99 07/24/18 20:00 60 07/24/18 19:59 21 07/24/18 19:58 59 20 94 Room Air 21 07/24/18 17:13 98.2 07/24/18 16:00 98.2 60 18 137/69 (91) 99 07/24/18 16:00 58 07/24/18 12:44 62 20 100 Room Air 21 07/24/18 12:37 21 07/24/18 12:37 76 20 98 Room Air 21 07/24/18 12:00 98.2 105 20 139/66 (90) 97 07/24/18 12:00 55 07/24/18 10:25 88 18 96 Room Air 21 07/24/18 10:25 84 18 96 Room Air 21 07/24/18 09:00 Room Air Room Air 07/24/18 08:00 98.3 66 18 134/60 (84) 98 07/24/18 08:00 70 12/6/18 07:38 67 18 100 Room Air 21 07/24/18 07:31 80 20 99 Room Air 21 07/24/18 07:31 21 Intake and Output 07/24/18 07/25/18 19:00 07:00 Intake Total 480 ml Output Total 1200 ml Balance -720 ml Intake Oral 480 ml Output Urine Total 1200 ml Height (Feet): 6 Height (Inches): 3.00 Weight (Pounds): 309 General Appearance: no apparent distress EENT: normal ENT inspection Neck: normal alignment Cardiovascular: regular rhythm Respiratory/Chest: chest wall non-tender Abdomen: non tender Extremities: non-tender Edema: 1+ Leg (L), 1+ Leg (R) Edema: mild edema Neurologic: alert Skin: normal pigmentation Kade Fermin MD Jul 25, 2018 06:39
[2018-07-25 08:00] VITALS: BP 133/75
[2018-07-25] MEDS: Aspirin Baby 81mg ORAL SCH (08:25)
[2018-07-25] MEDS: Heparin 5000 units/ml inj SUBQ SCH ×2 (08:35→20:56)
[2018-07-25] MEDS: Advair 250/50 Inhaler - 14 dose INH SCH ×2 (09:45→19:56)
[2018-07-25 12:00] VITALS: BP 135/71
--- NOTE | 2018-07-25 12:00 | Diagnostic Imaging Report ---
APPROVED REPORT CPT Code: 37039 Present Symptoms Lower Extremity Pain: Bilateral Comments: Technically difficult study due to vessel depth (mid-thigh and calf area). BILATERAL: Imaging reveals a patent deep venous system bilaterally. There is no evidence of thrombus within the femoral, or popliteal segments. The greater saphenous veins are also within normal limits. Doppler indicates normal spontaneous flow within these segments. The calf area not well imaged, bilaterally.
--- NOTE | 2018-07-25 12:08 | General Progress Note ---
Assessment/Plan Problem List: (1) MDD (major depressive disorder) ICD Codes: F32.9 - Major depressive disorder, single episode, unspecified SNOMED: 788472996 Status: stable Assessment/Plan depakote er 750mg qhs as the pt is angry ativan prn for agitation the pt stated that he wanted norco the pt was provided with ro/st Subjective Neurologic/Psychiatric: Reports: anxiety, depressed, emotional problems Allergies: Coded Allergies: PENICILLINS (Verified Allergy, Unknown, 08/31/17) TRAMADOL (Verified Allergy, Unknown, 08/31/17) Subjective The pt hostile and agitated. no change the pt is the same Objective Last 24 Hour Vital Signs Date Time Temp Pulse Resp B/P (MAP) Pulse Ox O2 Delivery O2 Flow Rate FiO2 07/25/18 09:46 78 20 96 Room Air 21 07/25/18 09:46 79 18 96 Room Air 21 07/25/18 09:00 Room Air Room Air 07/25/18 08:31 58 18 98 Room Air 21 07/25/18 08:23 54 18 96 Room Air 21 07/25/18 08:23 21 07/25/18 08:00 59 07/25/18 08:00 97.0 55 24 133/75 (94) 100 07/25/18 04:00 51 07/25/18 04:00 98.0 52 20 140/65 (90) 94 07/25/18 00:40 60 18 97 Room Air 21 07/25/18 00:30 21 07/25/18 00:29 58 18 96 Room Air 21 07/25/18 00:00 98.0 53 20 124/57 (79) 94 07/25/18 00:00 59 07/24/18 21:00 Room Air Room Air 07/24/18 20:12 60 16 100 Room Air 21 07/24/18 20:11 60 20 95 Room Air 21 07/24/18 20:10 60 20 95 Room Air 21 07/24/18 20:00 98.0 66 20 110/49 (69) 99 07/24/18 20:00 60 07/24/18 19:59 21 07/24/18 19:58 59 20 94 Room Air 21 07/24/18 17:13 98.2 07/24/18 16:00 98.2 60 18 137/69 (91) 99 07/24/18 16:00 58 07/24/18 12:44 62 20 100 Room Air 21 07/24/18 12:37 21 07/24/18 12:37 76 20 98 Room Air 21 Intake and Output 07/24/18 07/25/18 18:59 06:59 Intake Total 480 ml 400 ml Output Total 1200 ml 2175 ml Balance -720 ml -1775 ml Intake Oral 480 ml 400 ml Output Urine Total 1200 ml 2175 ml # Voids 3 Height (Feet): 6 Height (Inches): 3.00 Weight (Pounds): 298 General Appearance: alert, agitated Alejandro Norman MD Jul 25, 2018 12:08
--- NOTE | 2018-07-25 14:43 | Cardiac Electrophysiology PN ---
Assessment/Plan Assessment/Plan 1. Bilateral lower extremity edema. Likely due to congestive heart failure due to diastolic dysfunction and chronic lymphedema. His BNP is only 200.Continue Lasix 40 mg IV b.i.d. Echocardiogram showed normal left ventricular systolic function. 2. Hypertension. Continue Lasix 3. Chronic obstructive pulmonary disease. 4. Morbid obesity. 5. Hyperlipidemia. JEANETTE RN Subjective Subjective Diuresing on iv Lasix. Wheezing Objective Last 24 Hour Vital Signs Date Time Temp Pulse Resp B/P (MAP) Pulse Ox O2 Delivery O2 Flow Rate FiO2 07/25/18 12:15 64 18 98 Room Air 21 07/25/18 12:08 62 18 97 Room Air 21 07/25/18 12:08 21 07/25/18 12:00 74 07/25/18 12:00 97.0 60 22 135/71 (92) 96 07/25/18 09:46 78 20 96 Room Air 21 07/25/18 09:46 79 18 96 Room Air 21 07/25/18 09:00 Room Air Room Air 07/25/18 08:31 58 18 98 Room Air 21 07/25/18 08:23 54 18 96 Room Air 21 07/25/18 08:23 21 07/25/18 08:00 59 07/25/18 08:00 97.0 55 24 133/75 (94) 100 07/25/18 04:00 51 07/25/18 04:00 98.0 52 20 140/65 (90) 94 07/25/18 00:40 60 18 97 Room Air 21 07/25/18 00:30 21 07/25/18 00:29 58 18 96 Room Air 21 07/25/18 00:00 98.0 53 20 124/57 (79) 94 07/25/18 00:00 59 07/24/18 21:00 Room Air Room Air 07/24/18 20:12 60 16 100 Room Air 21 07/24/18 20:11 60 20 95 Room Air 21 07/24/18 20:10 60 20 95 Room Air 21 07/24/18 20:00 98.0 66 20 110/49 (69) 99 07/24/18 20:00 60 07/24/18 19:59 21 07/24/18 19:58 59 20 94 Room Air 21 07/24/18 17:13 98.2 07/24/18 16:00 98.2 60 18 137/69 (91) 99 07/24/18 16:00 58 Intake and Output 07/24/18 07/25/18 18:59 06:59 Intake Total 480 ml 400 ml Output Total 1200 ml 2175 ml Balance -720 ml -1775 ml Intake Oral 480 ml 400 ml Output Urine Total 1200 ml 2175 ml # Voids 3 Objective HEAD AND NECK: Positive JVD. LUNGS: Decreased breath sounds and wheezing CARDIOVASCULAR: Regular S1 and S2 with no gallop or murmur. ABDOMEN: Soft. EXTREMITIES: 2+ pitting edema. Prosper Crum MD Jul 25, 2018 14:43
--- NOTE | 2018-07-25 15:41 | Pulmonology Progress Note ---
Assessment/Plan Problems: (1) COPD exacerbation (2) Edema (3) CHF (congestive heart failure) (4) Anemia, iron deficiency (5) Nausea & vomiting (6) MDD (major depressive disorder) Assessment/Plan ASSESSMENT: The patient is a 63-year-old male, lifelong nonsmoker with a history of congestive heart failure with diastolic dysfunction, pulmonary hypertension, obesity, likely obstructive sleep apnea, known pulmonary nodules, anemia and asthma, presenting with shortness of breath likely secondary to decompensated heart failure PROBLEM LIST: 1. Shortness of breath likely secondary to decompensated heart failure 2. Asthma without evidence of exacerbation. 3. CHF with diastolic dysfunction, acute exacerbation. 4. Bilateral lower extremity edema, likely secondary to above. 5. Known scattered bilateral subcentimeter nodules, stable on follow-up - per patient being followed up by PULMONARY @ [facility] 6. Anemia. 7. Hypertension. 8. Obesity. 9. Likely THERON. TREATMENT PLAN: 1. Optimize pulmonary hygiene/mobilize as tolerated. 2. P.r.n. O2 to keep saturations greater than 90%. 3. RTC and PRN HHN's 4. Advair 250/50 5. Continue Pred 60 (D2)and taper 6. Monitor volumes, diurese to keep negative as tolerated. Monitor renal function with diuretics 7. F/U cardiology and renal recs 8. Encourage compliance 9. Continue to follow up with [facility] Pulmonary Clinic per the patient. 10. DVT prophylaxis, heparin subcutaneous. 11. Weight-loss diet and exercise discussed again. Subjective Allergies: Coded Allergies: PENICILLINS (Verified Allergy, Unknown, 08/31/17) TRAMADOL (Verified Allergy, Unknown, 08/31/17) Subjective Diuresis, AFVSS, stable on RA Less SOB, less NELLIE, no cough, less wheezing, no CP, no F/C Objective Last 24 Hour Vital Signs Date Time Temp Pulse Resp B/P (MAP) Pulse Ox O2 Delivery O2 Flow Rate FiO2 07/25/18 14:11 97.0 07/25/18 12:15 64 18 98 Room Air 21 07/25/18 12:08 62 18 97 Room Air 21 07/25/18 12:08 21 07/25/18 12:00 74 07/25/18 12:00 97.0 60 22 135/71 (92) 96 07/25/18 09:46 78 20 96 Room Air 21 07/25/18 09:46 79 18 96 Room Air 21 07/25/18 09:00 Room Air Room Air 07/25/18 08:31 58 18 98 Room Air 21 07/25/18 08:23 54 18 96 Room Air 21 07/25/18 08:23 21 07/25/18 08:00 59 07/25/18 08:00 97.0 55 24 133/75 (94) 100 07/25/18 04:00 51 07/25/18 04:00 98.0 52 20 140/65 (90) 94 07/25/18 00:40 60 18 97 Room Air 21 07/25/18 00:30 21 07/25/18 00:29 58 18 96 Room Air 21 07/25/18 00:00 98.0 53 20 124/57 (79) 94 07/25/18 00:00 59 07/24/18 21:00 Room Air Room Air 07/24/18 20:12 60 16 100 Room Air 21 07/24/18 20:11 60 20 95 Room Air 21 07/24/18 20:10 60 20 95 Room Air 21 07/24/18 20:00 98.0 66 20 110/49 (69) 99 07/24/18 20:00 60 07/24/18 19:59 21 07/24/18 19:58 59 20 94 Room Air 21 07/24/18 16:00 98.2 60 18 137/69 (91) 99 07/24/18 16:00 58 Intake and Output 07/24/18 07/25/18 19:00 07:00 Intake Total 480 ml 400 ml Output Total 1200 ml 2175 ml Balance -720 ml -1775 ml Intake Oral 480 ml 400 ml Output Urine Total 1200 ml 2175 ml # Voids 3 General Appearance: WD/WN, no acute distress HEENT: normocephalic, atraumatic, anicteric, mucous membranes moist Respiratory/Chest: chest wall non-tender, expiratory wheezing Cardiovascular: normal peripheral pulses, normal rate, regular rhythm Abdomen: normal bowel sounds, soft, non tender, no organomegaly, non distended , no mass Extremities: no cyanosis, no clubbing, other - 1+ NELLIE Current Medications Medications (Trade) Dose Ordered Sig/Virgen Route PRN Reason Start Time Stop Time Status Last Admin Dose Admin Acetaminophen (Tylenol) 650 mg Q4H PRN ORAL Mild Pain/Temp > 100.5 07/21/18 17:00 08/20/18 16:59 Acetaminophen/ Hydrocodone Bitart ([place] 10/325) 1 tab Q4H PRN ORAL For Pain 07/21/18 17:00 07/28/18 16:59 07/25/18 13:41 Albuterol/ Ipratropium (Albuterol/ Ipratropium) 3 ml Q6HRT HHN 07/22/18 19:00 07/27/18 18:59 07/25/18 12:08 Aspirin (ASA) 81 mg DAILY ORAL 07/22/18 09:00 08/21/18 08:59 07/25/18 08:25 Divalproex Sodium (Depakote ER) 750 mg BEDTIME ORAL 07/22/18 21:00 08/21/18 20:59 Ferrous Sulfate (Feosol) 325 mg DAILY ORAL 07/22/18 09:00 08/21/18 08:59 07/25/18 08:24 Furosemide (Lasix) 40 mg EVERY 12 HOURS IV 07/22/18 21:00 08/21/18 20:59 07/25/18 08:24 Heparin Sodium (Porcine) (Heparin 5000 units/ml) 5,000 units EVERY 12 HOURS SUBQ 07/21/18 22:15 08/20/18 22:14 Lorazepam (Ativan) 2 mg Q6H PRN ORAL For Anxiety 07/22/18 12:30 07/29/18 12:29 Montelukast Sodium (Singulair) 10 mg Q24H ORAL 07/22/18 17:00 08/21/18 16:59 07/24/18 17:11 Prednisone (predniSONE) 60 mg DAILY ORAL 07/25/18 09:00 08/24/18 08:59 07/25/18 08:24 Salmeterol Xinafoate/ Fluticasone (Advair 250/50 Diskus) 1 puffs EVERY 12 HOURS INH 07/21/18 21:00 08/20/18 20:59 07/25/18 09:45 Rashad Haji MD Jul 25, 2018 15:41
[2018-07-25 16:00] VITALS: BP 131/80
[2018-07-25] MEDS: Montelukast 10mg tablet ORAL SCH (17:27)
[2018-07-25 20:00] VITALS: BP 129/64
[2018-07-25] MEDS: Depakote ER 250mg tab ORAL SCH (20:56)
--- NOTE | 2018-07-25 22:28 | General Progress Note ---
Assessment/Plan Problem List: (1) Edema ICD Codes: R60.9 - Edema, unspecified SNOMED: [id number], [id number] (2) CHF (congestive heart failure) ICD Codes: I50.9 - Heart failure, unspecified SNOMED: [id number] (3) Anemia, iron deficiency ICD Codes: D50.9 - Iron deficiency anemia, unspecified SNOMED: 83984517 Status: progressing Assessment/Plan chf exacerbation edema is improving afebrile worsening renal failure due to overdiuresis fluid mangement signigicant leg edema improving Subjective ROS Limited/Unobtainable: Yes Allergies: Coded Allergies: PENICILLINS (Verified Allergy, Unknown, 08/31/17) TRAMADOL (Verified Allergy, Unknown, 08/31/17) Objective Last 24 Hour Vital Signs Date Time Temp Pulse Resp B/P (MAP) Pulse Ox O2 Delivery O2 Flow Rate FiO2 07/25/18 21:00 Room Air Room Air 07/25/18 20:00 98.2 74 19 129/64 (85) 95 07/25/18 20:00 71 07/25/18 19:59 78 18 96 Room Air 21 07/25/18 19:57 78 18 96 Room Air 21 07/25/18 19:57 78 18 96 Room Air 21 07/25/18 19:47 21 07/25/18 19:46 75 20 94 Room Air 21 07/25/18 16:00 97.0 72 22 131/80 (97) 95 07/25/18 16:00 70 07/25/18 14:11 97.0 07/25/18 12:15 64 18 98 Room Air 21 07/25/18 12:08 62 18 97 Room Air 21 07/25/18 12:08 21 07/25/18 12:00 74 07/25/18 12:00 97.0 60 22 135/71 (92) 96 07/25/18 09:46 78 20 96 Room Air 21 07/25/18 09:46 79 18 96 Room Air 21 07/25/18 09:00 Room Air Room Air 07/25/18 08:31 58 18 98 Room Air 21 07/25/18 08:23 54 18 96 Room Air 21 07/25/18 08:23 21 07/25/18 08:00 59 07/25/18 08:00 97.0 55 24 133/75 (94) 100 07/25/18 04:00 51 07/25/18 04:00 98.0 52 20 140/65 (90) 94 07/25/18 00:40 60 18 97 Room Air 21 07/25/18 00:30 21 07/25/18 00:29 58 18 96 Room Air 21 07/25/18 00:00 98.0 53 20 124/57 (79) 94 07/25/18 00:00 59 Intake and Output 07/24/18 07/25/18 19:00 07:00 Intake Total 480 ml 400 ml Output Total 1200 ml 2175 ml Balance -720 ml -1775 ml Intake Oral 480 ml 400 ml Output Urine Total 1200 ml 2175 ml # Voids 3 Height (Feet): 6 Height (Inches): 3.00 Weight (Pounds): 298 Cardiovascular: normal rate Respiratory/Chest: lungs clear Abdomen: soft Brittney Shepard MD Jul 25, 2018 22:28
[2018-07-26] VITALS: BP 132/61
[2018-07-26] MEDS: Albuterol/Ipratropium 3ml neb HHN SCH ×4 (01:27→19:29)
[2018-07-26] MEDS: HYDROcodone/Acetamin 10/325 tab ORAL PRN ×5 (03:14→21:05)
[2018-07-26 04:00] VITALS: BP 130/51
[2018-07-26 08:00] VITALS: BP 145/68
--- NOTE | 2018-07-26 08:12 | Pulmonology Progress Note ---
Assessment/Plan Assessment/Plan PROBLEM LIST: 1. Shortness of breath likely secondary to decompensated heart failure 2. Asthma without evidence of exacerbation. 3. CHF with diastolic dysfunction, acute exacerbation. 4. Bilateral lower extremity edema, likely secondary to above. 5. Known scattered bilateral subcentimeter nodules, stable on follow-up - per patient being followed up by PULMONARY @ [facility] 6. Anemia. 7. Hypertension. 8. Obesity. 9. Likely THERON. TREATMENT PLAN: 1. Optimize pulmonary hygiene/mobilize as tolerated. 2. P.r.n. O2 to keep saturations greater than 90%. 3. RTC and PRN HHN's 4. Advair 250/50 5. taper steroids in am if stable, no change today 6. Monitor volumes, diurese to keep negative as tolerated. Monitor renal function with diuretics 7. F/U cardiology and renal recs 8. Encourage compliance 9. Continue to follow up with [facility] Pulmonary Clinic per the patient. 10. DVT prophylaxis, heparin subcutaneous. 11. Weight-loss diet and exercise discussed again. Subjective Constitutional: Reports: no symptoms HEENT: Repors: no symptoms Respiratory: Reports: productive cough, shortness of breath Cardiovascular: Reports: no symptoms Gastrointestinal/Abdominal: Reports: no symptoms Genitourinary: Reports: no symptoms Allergies: Coded Allergies: PENICILLINS (Verified Allergy, Unknown, 08/31/17) TRAMADOL (Verified Allergy, Unknown, 08/31/17) Subjective no events on no cp noted wounds LE decreased edema no fever getting oob Objective Last 24 Hour Vital Signs Date Time Temp Pulse Resp B/P (MAP) Pulse Ox O2 Delivery O2 Flow Rate FiO2 07/26/18 07:03 73 16 97 Room Air 21 07/26/18 06:57 36 07/26/18 06:57 78 18 97 Room Air 21 07/26/18 04:00 61 07/26/18 04:00 97.0 59 20 130/51 (77) 94 07/26/18 01:42 72 18 96 Room Air 21 07/26/18 01:33 21 07/26/18 01:32 70 18 95 Room Air 21 07/26/18 00:00 61 07/26/18 00:00 98.1 61 18 132/61 (84) 98 07/25/18 21:00 Room Air Room Air 07/25/18 20:00 98.2 74 19 129/64 (85) 95 07/25/18 20:00 71 07/25/18 19:59 78 18 96 Room Air 21 07/25/18 19:57 78 18 96 Room Air 21 07/25/18 19:57 78 18 96 Room Air 21 07/25/18 19:47 21 07/25/18 19:46 75 20 94 Room Air 21 07/25/18 16:00 97.0 72 22 131/80 (97) 95 07/25/18 16:00 70 07/25/18 14:11 97.0 07/25/18 12:15 64 18 98 Room Air 21 07/25/18 12:08 62 18 97 Room Air 21 07/25/18 12:08 21 07/25/18 12:00 74 07/25/18 12:00 97.0 60 22 135/71 (92) 96 07/25/18 09:46 78 20 96 Room Air 21 07/25/18 09:46 79 18 96 Room Air 21 07/25/18 09:00 Room Air Room Air 07/25/18 08:31 58 18 98 Room Air 21 07/25/18 08:23 54 18 96 Room Air 21 07/25/18 08:23 21 Intake and Output 07/25/18 07/26/18 19:00 07:00 Intake Total 480 ml Output Total 2600 ml 2200 ml Balance -2600 ml -1720 ml Intake Oral 480 ml Output Urine Total 2600 ml 2200 ml General Appearance: WD/WN Respiratory/Chest: crackles/rales, rhonchi Cardiovascular: normal rate, regular rhythm, edema Abdomen: soft, non tender Extremities: no cyanosis, no clubbing Skin: lesions Neurologic/Psychiatric: alert, oriented x 3 Current Medications Medications (Trade) Dose Ordered Sig/Virgen Route PRN Reason Start Time Stop Time Status Last Admin Dose Admin Acetaminophen (Tylenol) 650 mg Q4H PRN ORAL Mild Pain/Temp > 100.5 07/21/18 17:00 08/20/18 16:59 Acetaminophen/ Hydrocodone Bitart ([place] 10/325) 1 tab Q4H PRN ORAL For Pain 07/21/18 17:00 07/28/18 16:59 07/26/18 07:25 Albuterol/ Ipratropium (Albuterol/ Ipratropium) 3 ml Q6HRT HHN 07/22/18 19:00 07/27/18 18:59 07/26/18 07:03 Aspirin (ASA) 81 mg DAILY ORAL 07/22/18 09:00 08/21/18 08:59 07/25/18 08:25 Divalproex Sodium (Depakote ER) 750 mg BEDTIME ORAL 07/22/18 21:00 08/21/18 20:59 Ferrous Sulfate (Feosol) 325 mg DAILY ORAL 07/22/18 09:00 08/21/18 08:59 07/25/18 08:24 Furosemide (Lasix) 40 mg EVERY 12 HOURS IV 07/22/18 21:00 08/21/18 20:59 07/25/18 20:58 Heparin Sodium (Porcine) (Heparin 5000 units/ml) 5,000 units EVERY 12 HOURS SUBQ 07/21/18 22:15 08/20/18 22:14 Lorazepam (Ativan) 2 mg Q6H PRN ORAL For Anxiety 07/22/18 12:30 07/29/18 12:29 Montelukast Sodium (Singulair) 10 mg Q24H ORAL 07/22/18 17:00 08/21/18 16:59 07/25/18 17:27 Prednisone (predniSONE) 60 mg DAILY ORAL 07/25/18 09:00 08/24/18 08:59 07/25/18 08:24 Salmeterol Xinafoate/ Fluticasone (Advair 250/50 Diskus) 1 puffs EVERY 12 HOURS INH 07/21/18 21:00 08/20/18 20:59 07/25/18 19:56 Denita Hart DO Jul 26, 2018 08:12
[2018-07-26] MEDS: Advair 250/50 Inhaler - 14 dose INH SCH ×2 (08:29→21:24)
[2018-07-26] MEDS: Aspirin Baby 81mg ORAL SCH (08:30)
[2018-07-26] MEDS: Heparin 5000 units/ml inj SUBQ SCH ×2 (08:30→21:00)
--- NOTE | 2018-07-26 09:51 | General Progress Note ---
Assessment/Plan Problem List: (1) Edema ICD Codes: R60.9 - Edema, unspecified SNOMED: 833034885, [id number] (2) CHF (congestive heart failure) ICD Codes: I50.9 - Heart failure, unspecified SNOMED: 58423159 (3) Anemia, iron deficiency ICD Codes: D50.9 - Iron deficiency anemia, unspecified SNOMED: 97792135 Status: progressing Assessment/Plan chf exacerbation reviewed chart and labs no acute events worsening renal failure due to overdiuresis fluid mangement signigicant leg edema improving Subjective ROS Limited/Unobtainable: Yes Allergies: Coded Allergies: PENICILLINS (Verified Allergy, Unknown, 08/31/17) TRAMADOL (Verified Allergy, Unknown, 08/31/17) Objective Last 24 Hour Vital Signs Date Time Temp Pulse Resp B/P (MAP) Pulse Ox O2 Delivery O2 Flow Rate FiO2 07/26/18 08:33 Room Air 21 07/26/18 08:33 Room Air 21 07/26/18 08:00 97.3 105 19 145/68 (93) 94 07/26/18 07:55 97.0 07/26/18 07:03 73 16 97 Room Air 21 07/26/18 06:57 36 07/26/18 06:57 78 18 97 Room Air 21 07/26/18 04:00 61 07/26/18 04:00 97.0 59 20 130/51 (77) 94 07/26/18 01:42 72 18 96 Room Air 21 07/26/18 01:33 21 07/26/18 01:32 70 18 95 Room Air 21 07/26/18 00:00 61 07/26/18 00:00 98.1 61 18 132/61 (84) 98 07/25/18 21:00 Room Air Room Air 07/25/18 20:00 98.2 74 19 129/64 (85) 95 07/25/18 20:00 71 07/25/18 19:59 78 18 96 Room Air 21 07/25/18 19:57 78 18 96 Room Air 21 07/25/18 19:57 78 18 96 Room Air 21 07/25/18 19:47 21 07/25/18 19:46 75 20 94 Room Air 21 07/25/18 16:00 97.0 72 22 131/80 (97) 95 07/25/18 16:00 70 07/25/18 12:15 64 18 98 Room Air 21 07/25/18 12:08 62 18 97 Room Air 21 07/25/18 12:08 21 07/25/18 12:00 74 07/25/18 12:00 97.0 60 22 135/71 (92) 96 Intake and Output 07/25/18 07/26/18 19:00 07:00 Intake Total 480 ml Output Total 2600 ml 2200 ml Balance -2600 ml -1720 ml Intake Oral 480 ml Output Urine Total 2600 ml 2200 ml Height (Feet): 6 Height (Inches): 3.00 Weight (Pounds): 297 Cardiovascular: normal rate Respiratory/Chest: lungs clear Abdomen: soft Brittney Shepard MD Jul 26, 2018 09:51
[2018-07-26 12:00] VITALS: BP 147/64
--- NOTE | 2018-07-26 13:33 | Cardiac Electrophysiology PN ---
Assessment/Plan Assessment/Plan 1. Bilateral lower extremity edema. Due to congestive heart failure due to diastolic dysfunction and chronic lymphedema. His BNP is only 200. Continue Lasix 40 mg IV b.i.d. Echocardiogram showed normal left ventricular systolic function. 2. Hypertension. Continue Lasix 3. Chronic obstructive pulmonary disease. 4. Morbid obesity. 5. Hyperlipidemia. JEANETTE RN DC tele Subjective Subjective Diuresing on iv Lasix. In SR. No CP. SOB is better Objective Last 24 Hour Vital Signs Date Time Temp Pulse Resp B/P (MAP) Pulse Ox O2 Delivery O2 Flow Rate FiO2 07/26/18 13:00 83 18 97 Room Air 21 07/26/18 12:55 36 07/26/18 12:55 91 18 96 Room Air 21 07/26/18 12:00 97.7 110 22 147/64 (91) 99 07/26/18 09:00 Room Air Room Air Room Air 07/26/18 08:33 Room Air 21 07/26/18 08:33 Room Air 21 07/26/18 08:00 97.3 105 19 145/68 (93) 94 07/26/18 08:00 65 07/26/18 07:55 97.0 07/26/18 07:03 73 16 97 Room Air 21 07/26/18 06:57 36 07/26/18 06:57 78 18 97 Room Air 21 07/26/18 04:00 61 07/26/18 04:00 97.0 59 20 130/51 (77) 94 07/26/18 01:42 72 18 96 Room Air 21 07/26/18 01:33 21 07/26/18 01:32 70 18 95 Room Air 21 07/26/18 00:00 61 07/26/18 00:00 98.1 61 18 132/61 (84) 98 07/25/18 21:00 Room Air Room Air 07/25/18 20:00 98.2 74 19 129/64 (85) 95 07/25/18 20:00 71 07/25/18 19:59 78 18 96 Room Air 21 07/25/18 19:57 78 18 96 Room Air 21 07/25/18 19:57 78 18 96 Room Air 21 07/25/18 19:47 21 07/25/18 19:46 75 20 94 Room Air 21 12/7/18 16:00 97.0 72 22 131/80 (97) 95 07/25/18 16:00 70 Intake and Output 07/25/18 07/26/18 18:59 06:59 Intake Total 480 ml Output Total 2600 ml 2200 ml Balance -2600 ml -1720 ml Intake Oral 480 ml Output Urine Total 2600 ml 2200 ml Objective HEAD AND NECK: Mild JVD. LUNGS: Decreased breath sounds and wheezing CARDIOVASCULAR: Regular S1 and S2 with no gallop or murmur. ABDOMEN: Soft. EXTREMITIES: 2+ pitting edema. Prosper Crum MD Jul 26, 2018 13:33
[2018-07-26 16:00] VITALS: BP 133/70
[2018-07-26] MEDS: Montelukast 10mg tablet ORAL SCH (16:53)
[2018-07-26] MEDS ORDERED: LORazepam 1mg tab ORAL PRN (17:00)
[2018-07-26 20:00] VITALS: BP 113/61
[2018-07-26] MEDS: Depakote ER 250mg tab ORAL SCH (21:00)
[2018-07-27] VITALS: BP 136/59
[2018-07-27] MEDS: Albuterol/Ipratropium 3ml neb HHN SCH ×3 (00:11→12:21)
[2018-07-27] MEDS: HYDROcodone/Acetamin 10/325 tab ORAL PRN ×4 (03:52→20:21)
[2018-07-27 04:00] VITALS: BP 135/64
[2018-07-27 08:00] VITALS: BP 112/72
[2018-07-27] MEDS: Aspirin Baby 81mg ORAL SCH (08:22)
[2018-07-27] MEDS: Advair 250/50 Inhaler - 14 dose INH SCH ×2 (08:48→21:03)
[2018-07-27] MEDS: Heparin 5000 units/ml inj SUBQ SCH ×2 (09:00→20:21)
[2018-07-27 12:00] VITALS: BP 8/65
--- NOTE | 2018-07-27 13:05 | General Progress Note ---
Assessment/Plan Problem List: (1) Edema ICD Codes: R60.9 - Edema, unspecified SNOMED: 749539234, 103062855 (2) CHF (congestive heart failure) ICD Codes: I50.9 - Heart failure, unspecified SNOMED: 90907786 (3) Anemia, iron deficiency ICD Codes: D50.9 - Iron deficiency anemia, unspecified SNOMED: 64844995 Status: progressing Assessment/Plan chf exacerbation improving reviewed chart and labs kidney function stablized Subjective ROS Limited/Unobtainable: Yes Allergies: Coded Allergies: PENICILLINS (Verified Allergy, Unknown, 08/31/17) TRAMADOL (Verified Allergy, Unknown, 08/31/17) Objective Last 24 Hour Vital Signs Date Time Temp Pulse Resp B/P (MAP) Pulse Ox O2 Delivery O2 Flow Rate FiO2 07/27/18 12:21 84 22 100 Room Air 21 07/27/18 12:16 36 07/27/18 12:16 89 20 97 Room Air 21 07/27/18 09:00 Room Air Room Air Room Air 07/27/18 08:48 73 20 96 Room Air 21 07/27/18 08:48 87 18 96 Room Air 21 07/27/18 08:00 97.4 81 17 112/72 (85) 07/27/18 07:24 79 20 100 Room Air 21 07/27/18 07:18 36 07/27/18 07:18 76 18 97 Room Air 21 07/27/18 04:22 97.9 07/27/18 04:00 97.8 62 19 135/64 (87) 98 07/27/18 00:12 Room Air 21 07/27/18 00:11 Room Air 21 07/27/18 00:00 97.9 66 18 136/59 (84) 98 07/26/18 21:25 79 18 100 Room Air 21 07/26/18 21:24 76 18 99 Room Air 21 07/26/18 20:07 Room Air Room Air Room Air 07/26/18 20:00 97.2 68 19 113/61 (78) 97 07/26/18 19:45 82 18 100 Room Air 21 07/26/18 19:32 21 07/26/18 19:30 73 18 97 Room Air 21 07/26/18 16:00 98.2 67 20 133/70 (91) 97 07/26/18 13:00 83 18 97 Room Air 21 07/26/18 12:55 36 07/26/18 12:55 91 18 96 Room Air 21 Intake and Output 07/26/18 07/27/18 18:59 06:59 Intake Total 480 ml 980 ml Output Total 2000 ml 1475 ml Balance -1520 ml -495 ml Intake Oral 480 ml 480 ml Other 500 ml Output Urine Total 2000 ml 1475 ml # Voids 4 Height (Feet): 6 Height (Inches): 3.00 Weight (Pounds): 298 EENT: PERRL/EOMI Cardiovascular: normal rate Abdomen: soft Brittney Shepard MD Jul 27, 2018 13:05
--- NOTE | 2018-07-27 16:44 | Cardiac Electrophysiology PN ---
Assessment/Plan Assessment/Plan 1. Bilateral lower extremity edema. Due to congestive heart failure due to diastolic dysfunction and chronic lymphedema. Continue Lasix 40 mg IV b.i.d. Echocardiogram showed normal left ventricular systolic function. 2. Hypertension. Continue Lasix 3. Chronic obstructive pulmonary disease. 4. Morbid obesity. 5. Hyperlipidemia. JEANETTE RN Subjective Subjective Diuresing on iv Lasix. No CP Objective Last 24 Hour Vital Signs Date Time Temp Pulse Resp B/P (MAP) Pulse Ox O2 Delivery O2 Flow Rate FiO2 07/27/18 12:21 84 22 100 Room Air 21 07/27/18 12:16 36 07/27/18 12:16 89 20 97 Room Air 21 07/27/18 12:00 97.9 56 16 8/65 (46) 95 07/27/18 09:00 Room Air Room Air Room Air 07/27/18 08:48 73 20 96 Room Air 21 07/27/18 08:48 87 18 96 Room Air 21 07/27/18 08:00 97.4 81 17 112/72 (85) 07/27/18 07:24 79 20 100 Room Air 21 07/27/18 07:18 36 07/27/18 07:18 76 18 97 Room Air 21 07/27/18 04:22 97.9 07/27/18 04:00 97.8 62 19 135/64 (87) 98 07/27/18 00:12 Room Air 21 07/27/18 00:11 Room Air 21 07/27/18 00:00 97.9 66 18 136/59 (84) 98 07/26/18 21:25 79 18 100 Room Air 21 07/26/18 21:24 76 18 99 Room Air 21 07/26/18 20:07 Room Air Room Air Room Air 07/26/18 20:00 97.2 68 19 113/61 (78) 97 07/26/18 19:45 82 18 100 Room Air 21 07/26/18 19:32 21 07/26/18 19:30 73 18 97 Room Air 21 Intake and Output 07/26/18 07/27/18 18:59 06:59 Intake Total 480 ml 980 ml Output Total 2000 ml 1475 ml Balance -1520 ml -495 ml Intake Oral 480 ml 480 ml Other 500 ml Output Urine Total 2000 ml 1475 ml # Voids 4 Objective HEAD AND NECK: Mild JVD. LUNGS: Decreased breath sounds and wheezing CARDIOVASCULAR: Regular S1 and S2 with no gallop or murmur. ABDOMEN: Soft. EXTREMITIES: 2+ pitting edema. Prosper Crum MD Jul 27, 2018 16:44
[2018-07-27] MEDS: Montelukast 10mg tablet ORAL SCH (18:31)
[2018-07-27 20:00] VITALS: BP 129/72
[2018-07-27] MEDS: Depakote ER 250mg tab ORAL SCH (20:21)
[2018-07-28] MEDS: HYDROcodone/Acetamin 10/325 tab ORAL PRN ×4 (00:19→20:35)
[2018-07-28 00:22] VITALS: BP 131/72
--- NOTE | 2018-07-28 07:10 | General Progress Note ---
Assessment/Plan Assessment/Plan ASSESSMENT AND RECS: #. Anemia due to underlying iron deficiency. The patient on prior admission given IV iron. --> ferritin is reviewed and is 82, TIBC is approx 200, likely iron repleted --> monitor and trend as needed cbc --> Stable and monitor #. Anemia due to hemodilution with chf overload --> as per cardiology, diuresis as required --> seen by Dr. Crum --> no e/o hemolysis #. Borderline mediastinal lymphadenopathy, nonspecific etiology. Multiple small right lung nodules. --> Repeat CT scan in 6 to 12 months. --> f/u with [facility] #. Leukopenia in the past. Hepatitis and HIV is negative. --> Ultrasound showed no acute findings. --> Medications have been reviewed. --> Cont to monitor for improvement. --> given neupogen if anc <1000 #. Congestive heart failure exacerbation versus asthma. as per Dr. Crum. --> cards and pulm recs reviewed --> diuresis as per goal #. Chronic venous stasis lower extremities. #. Chronic obstructive pulmonary disease exacerbation. Shortness of breath. --> Given steroids and Lasix. #. Psych disorder as per Dr. Norman #. DVT prophylaxis with heparin. Appreciate consultation greatly! Subjective Constitutional: Denies: no symptoms, chills, diaphoresis, fever, malaise, weakness, other HEENT: Denies: no symptoms, eye pain, blurred vision, tearing, double vision, ear pain, ear discharge, nose pain, nose congestion, throat pain, throat swelling, mouth pain, mouth swelling, other Cardiovascular: Denies: no symptoms, chest pain, edema, irregular heart rate, lightheadedness, palpitations, syncope, other Respiratory: Denies: no symptoms, cough, orthopnea, shortness of breath, SOB with excertion, SOB at rest, sputum, stridor, wheezing, other Gastrointestinal/Abdominal: Denies: no symptoms, abdomen distended, abdominal pain, black stools, tarry stools, blood in stool, constipated, diarrhea, difficulty swallowing, nausea, poor appetite, poor fluid intake, rectal bleeding , vomiting, other Genitourinary: Denies: no symptoms, burning, discharge, frequency, flank pain, hematuria, incontinence, pain, urgency, other Neurologic/Psychiatric: Denies: no symptoms, anxiety, depressed, emotional problems, headache, numbness, paresthesia, pre-existing deficit, seizure, tingling, tremors, weakness, other Endocrine: Denies: no symptoms, excessive sweating, flushing, intolerance to cold, intolerance to heat, increased hunger, increased thirst, increased urine, unexplained weight gain, unexplained weight loss, other Hematologic/Lymphatic: Denies: no symptoms, anemia, easy bleeding, easy bruising, other Allergies: Coded Allergies: PENICILLINS (Verified Allergy, Unknown, 08/31/17) TRAMADOL (Verified Allergy, Unknown, 08/31/17) Subjective breathing today better, labs pending from the am Objective Last 24 Hour Vital Signs Date Time Temp Pulse Resp B/P (MAP) Pulse Ox O2 Delivery O2 Flow Rate FiO2 07/28/18 00:50 97.7 07/28/18 00:22 97.7 57 18 131/72 (91) 95 07/27/18 21:06 79 20 95 Room Air 21 07/27/18 21:05 79 18 95 Room Air 21 07/27/18 20:04 Room Air Room Air Room Air 07/27/18 20:00 98.0 75 20 129/72 (91) 98 07/27/18 12:21 84 22 100 Room Air 21 07/27/18 12:16 36 07/27/18 12:16 89 20 97 Room Air 21 07/27/18 12:00 97.9 56 16 8/65 (46) 95 07/27/18 09:00 Room Air Room Air Room Air 07/27/18 08:48 73 20 96 Room Air 21 07/27/18 08:48 87 18 96 Room Air 21 07/27/18 08:00 97.4 81 17 112/72 (85) 07/27/18 07:24 79 20 100 Room Air 21 07/27/18 07:18 36 07/27/18 07:18 76 18 97 Room Air 21 Intake and Output 07/27/18 07/28/18 19:00 07:00 Intake Total 1800 ml 2000 ml Output Total 3500 ml Balance 1800 ml -1500 ml Intake Oral 2000 ml Other 1800 ml Output Urine Total 3500 ml Height (Feet): 6 Height (Inches): 3.00 Weight (Pounds): 301 Neck: non-tender Cardiovascular: normal rate Respiratory/Chest: no respiratory distress Abdomen: abnormal bowel sounds Edema: moderate edema Neurologic: alert Kade Fermin MD Jul 28, 2018 07:10
[2018-07-28 08:00] VITALS: BP 132/98
[2018-07-28] MEDS: Advair 250/50 Inhaler - 14 dose INH SCH ×2 (08:04→20:48)
[2018-07-28] MEDS: Aspirin Baby 81mg ORAL SCH (08:28)
[2018-07-28] MEDS: Heparin 5000 units/ml inj SUBQ SCH ×2 (08:29→20:36)
[2018-07-28 08:46] LABS: BASOPHILS % (AUTO) 1.3 % (0.0-2.0); EOSINOPHILS % (AUTO) 1.7 % (0.0-3.0); HEMATOCRIT 40.7 % (42.0-52.0); HEMOGLOBIN 12.9 G/DL (14.2-18.0); MEAN CORPUSCULAR VOLUME 81 FL (80-99); MONOCYTES % (AUTO) 3.2 % (1.0-10.0); NEUTROPHILS % (AUTO) 45.8 % (45.0-75.0); PLATELET COUNT 316 K/UL (150-450); RED BLOOD COUNT 5.05 M/UL (4.70-6.10); RED CELL DISTRIBUTION WIDTH 14.8 % (11.6-14.8); WHITE BLOOD COUNT 9.3 K/UL (4.8-10.8)
[2018-07-28 09:16] LABS: ALANINE AMINOTRANSFERASE 31 U/L (12-78); ALBUMIN/GLOBULIN RATIO 0.6 (1.0-2.7); ALKALINE PHOSPHATASE 78 U/L (46-116); ANION GAP 7 mmol/L (5-15); ASPARTATE AMINO TRANSFERASE 17 U/L (15-37); BILIRUBIN,TOTAL 0.2 MG/DL (0.2-1.0); BLOOD UREA NITROGEN 35 mg/dL (7-18); CALCIUM 9.2 MG/DL (8.5-10.1); CARBON DIOXIDE 30 MMOL/L (21-32); CHLORIDE 101 MMOL/L (98-107); CREATININE 1.2 MG/DL (0.55-1.30); POTASSIUM 3.6 MMOL/L (3.5-5.1); SODIUM 138 MMOL/L (136-145)
[2018-07-28 12:00] VITALS: BP 137/65
--- NOTE | 2018-07-28 14:09 | General Progress Note ---
Assessment/Plan Problem List: (1) MDD (major depressive disorder) ICD Codes: F32.9 - Major depressive disorder, single episode, unspecified SNOMED: [id number] Assessment/Plan depakote er 750mg qhs as the pt is angry ativan prn for agitation the pt stated that he wanted norco the pt was provided with ro/st Subjective Neurologic/Psychiatric: Reports: anxiety Allergies: Coded Allergies: PENICILLINS (Verified Allergy, Unknown, 08/31/17) TRAMADOL (Verified Allergy, Unknown, 08/31/17) Subjective The pt is hostile Objective Last 24 Hour Vital Signs Date Time Temp Pulse Resp B/P (MAP) Pulse Ox O2 Delivery O2 Flow Rate FiO2 07/28/18 12:00 98.0 59 20 137/65 (89) 100 07/28/18 09:00 Room Air Room Air Room Air 07/28/18 08:58 97.7 07/28/18 08:04 80 20 96 Room Air 21 07/28/18 08:04 86 18 97 Room Air 21 07/28/18 08:00 97.7 58 18 132/98 (109) 95 07/28/18 00:22 97.7 57 18 131/72 (91) 95 07/27/18 21:06 79 20 95 Room Air 21 07/27/18 21:05 79 18 95 Room Air 21 07/27/18 20:04 Room Air Room Air Room Air 07/27/18 20:00 98.0 75 20 129/72 (91) 98 Intake and Output 07/27/18 07/28/18 19:00 07:00 Intake Total 1800 ml 2000 ml Output Total 3500 ml Balance 1800 ml -1500 ml Intake Oral 2000 ml Other 1800 ml Output Urine Total 3500 ml Laboratory Tests 07/28/18 08:15: White Blood Count 9.3, Red Blood Count 5.05, Hemoglobin 12.9L, Hematocrit 40.7L , Mean Corpuscular Volume 81, Mean Corpuscular Hemoglobin 25.6L, Mean Corpuscular Hemoglobin Concent 31.7L, Red Cell Distribution Width 14.8, Platelet Count 316, Mean Platelet Volume 7.5, Neutrophils (%) (Auto) 45.8, Lymphocytes (%) (Auto) 48.0H, Monocytes (%) (Auto) 3.2, Eosinophils (%) (Auto) 1.7, Basophils (%) (Auto) 1.3, Sodium Level 138, Potassium Level 3.6, Chloride Level 101, Carbon Dioxide Level 30, Anion Gap 7, Blood Urea Nitrogen 35H, Creatinine 1.2, Estimat Glomerular Filtration Rate > 60, Glucose Level 142H, Calcium Level 9.2, Total Bilirubin 0.2, Aspartate Amino Transf (AST/SGOT) 17, Alanine Aminotransferase (ALT/SGPT) 31, Alkaline Phosphatase 78, Total Protein 8.3H, Albumin 3.0L, Globulin 5.3, Albumin/Globulin Ratio 0.6L Height (Feet): 6 Height (Inches): 3.00 Weight (Pounds): 301 General Appearance: alert Neurologic: oriented x 3, responsive, depressed affect Alejandro Norman MD Jul 28, 2018 14:09
[2018-07-28 16:00] VITALS: BP 137/65
[2018-07-28] MEDS: Montelukast 10mg tablet ORAL SCH (17:16)
--- NOTE | 2018-07-28 17:18 | Cardiac Electrophysiology PN ---
Assessment/Plan Assessment/Plan 1. Bilateral lower extremity edema. Due to CHF due to diastolic dysfunction and chronic lymphedema. Continue Lasix 40 mg IV b.i.d. Echocardiogram showed Nl EF 2. Hypertension. Continue Lasix 3. Chronic obstructive pulmonary disease. 4. Morbid obesity. 5. Hyperlipidemia. JEANETTE RN Subjective Subjective Diuresing on iv Lasix. Still wheezing Objective Last 24 Hour Vital Signs Date Time Temp Pulse Resp B/P (MAP) Pulse Ox O2 Delivery O2 Flow Rate FiO2 07/28/18 16:00 97.8 60 18 137/65 (89) 98 07/28/18 14:43 98.0 07/28/18 12:00 98.0 59 20 137/65 (89) 100 07/28/18 09:00 Room Air Room Air Room Air 07/28/18 08:04 80 20 96 Room Air 21 07/28/18 08:04 86 18 97 Room Air 21 07/28/18 08:00 97.7 58 18 132/98 (109) 95 07/28/18 00:22 97.7 57 18 131/72 (91) 95 07/27/18 21:06 79 20 95 Room Air 21 07/27/18 21:05 79 18 95 Room Air 21 07/27/18 20:04 Room Air Room Air Room Air 07/27/18 20:00 98.0 75 20 129/72 (91) 98 Intake and Output 07/27/18 07/28/18 19:00 07:00 Intake Total 1800 ml 2000 ml Output Total 3500 ml Balance 1800 ml -1500 ml Intake Oral 2000 ml Other 1800 ml Output Urine Total 3500 ml Laboratory Tests Test 07/28/18 08:15 White Blood Count 9.3 K/UL (4.8-10.8) Red Blood Count 5.05 M/UL (4.70-6.10) Hemoglobin 12.9 G/DL (14.2-18.0) L Hematocrit 40.7 % (42.0-52.0) L Mean Corpuscular Volume 81 FL (80-99) Mean Corpuscular Hemoglobin 25.6 PG (27.0-31.0) L Mean Corpuscular Hemoglobin Concent 31.7 G/DL (32.0-36.0) L Red Cell Distribution Width 14.8 % (11.6-14.8) Platelet Count 316 K/UL (150-450) Mean Platelet Volume 7.5 FL (6.5-10.1) Neutrophils (%) (Auto) 45.8 % (45.0-75.0) Lymphocytes (%) (Auto) 48.0 % (20.0-45.0) H Monocytes (%) (Auto) 3.2 % (1.0-10.0) Eosinophils (%) (Auto) 1.7 % (0.0-3.0) Basophils (%) (Auto) 1.3 % (0.0-2.0) Sodium Level 138 MMOL/L (136-145) Potassium Level 3.6 MMOL/L (3.5-5.1) Chloride Level 101 MMOL/L (98-107) Carbon Dioxide Level 30 MMOL/L (21-32) Anion Gap 7 mmol/L (5-15) Blood Urea Nitrogen 35 mg/dL (7-18) H Creatinine 1.2 MG/DL (0.55-1.30) Estimat Glomerular Filtration Rate > 60 mL/min (>60) Glucose Level 142 MG/DL (74-106) H Calcium Level 9.2 MG/DL (8.5-10.1) Total Bilirubin 0.2 MG/DL (0.2-1.0) Aspartate Amino Transf (AST/SGOT) 17 U/L (15-37) Alanine Aminotransferase (ALT/SGPT) 31 U/L (12-78) Alkaline Phosphatase 78 U/L (46-116) Total Protein 8.3 G/DL (6.4-8.2) H Albumin 3.0 G/DL (3.4-5.0) L Globulin 5.3 g/dL Albumin/Globulin Ratio 0.6 (1.0-2.7) L Objective HEAD AND NECK: Mild JVD. LUNGS: Decreased breath sounds and wheezing CARDIOVASCULAR: Regular S1 and S2 with no murmur. ABDOMEN: Soft. EXTREMITIES: 2+ pitting edema. Prosper Crum MD Jul 28, 2018 17:18
--- NOTE | 2018-07-28 17:48 | Pulmonology Progress Note ---
Assessment/Plan Problems: (1) COPD exacerbation (2) Edema (3) CHF (congestive heart failure) (4) Anemia, iron deficiency (5) Nausea & vomiting (6) MDD (major depressive disorder) Assessment/Plan ASSESSMENT: The patient is a 63-year-old male, lifelong nonsmoker with a history of congestive heart failure with diastolic dysfunction, pulmonary hypertension, obesity, likely obstructive sleep apnea, known pulmonary nodules, anemia and asthma, presenting with shortness of breath likely secondary to decompensated heart failure PROBLEM LIST: 1. Shortness of breath likely secondary to decompensated heart failure 2. Asthma without evidence of exacerbation. 3. CHF with diastolic dysfunction, acute exacerbation. 4. Bilateral lower extremity edema, likely secondary to above. 5. Known scattered bilateral subcentimeter nodules, stable on follow-up - per patient being followed up by PULMONARY @ [facility] 6. Anemia. 7. Hypertension. 8. Obesity. 9. Likely THERON. TREATMENT PLAN: 1. Optimize pulmonary hygiene/mobilize as tolerated. 2. P.r.n. O2 to keep saturations greater than 90%. 3. RTC and PRN HHN's 4. Advair 250/50 5. Decrease Pred to 40 (D5) and taper 6. Monitor volumes, diurese to keep negative as tolerated. Monitor renal function with diuretics 7. F/U cardiology and renal recs 8. Encourage compliance 9. Continue to follow up with [facility] Pulmonary Clinic per the patient. 10. DVT prophylaxis, heparin subcutaneous. 11. Weight-loss diet and exercise discussed again. Subjective Allergies: Coded Allergies: PENICILLINS (Verified Allergy, Unknown, 08/31/17) TRAMADOL (Verified Allergy, Unknown, 08/31/17) Subjective Diuresing AFVSS, stable on RA Less SOB, less NELLIE, no cough, + wheezing, no CP, no F/C Objective Last 24 Hour Vital Signs Date Time Temp Pulse Resp B/P (MAP) Pulse Ox O2 Delivery O2 Flow Rate FiO2 07/28/18 16:00 97.8 60 18 137/65 (89) 98 07/28/18 14:43 98.0 07/28/18 12:00 98.0 59 20 137/65 (89) 100 07/28/18 09:00 Room Air Room Air Room Air 07/28/18 08:04 80 20 96 Room Air 21 07/28/18 08:04 86 18 97 Room Air 21 07/28/18 08:00 97.7 58 18 132/98 (109) 95 07/28/18 00:22 97.7 57 18 131/72 (91) 95 07/27/18 21:06 79 20 95 Room Air 21 07/27/18 21:05 79 18 95 Room Air 21 07/27/18 20:04 Room Air Room Air Room Air 07/27/18 20:00 98.0 75 20 129/72 (91) 98 Intake and Output 07/27/18 07/28/18 19:00 07:00 Intake Total 1800 ml 2000 ml Output Total 3500 ml Balance 1800 ml -1500 ml Intake Oral 2000 ml Other 1800 ml Output Urine Total 3500 ml General Appearance: WD/WN, no acute distress HEENT: normocephalic, atraumatic, anicteric, mucous membranes moist Respiratory/Chest: expiratory wheezing Cardiovascular: normal peripheral pulses, normal rate, regular rhythm Abdomen: normal bowel sounds, soft, non tender, no organomegaly, non distended , no mass Extremities: no cyanosis, no clubbing, other - trace edema Laboratory Tests 07/28/18 08:15: White Blood Count 9.3, Red Blood Count 5.05, Hemoglobin 12.9L, Hematocrit 40.7L , Mean Corpuscular Volume 81, Mean Corpuscular Hemoglobin 25.6L, Mean Corpuscular Hemoglobin Concent 31.7L, Red Cell Distribution Width 14.8, Platelet Count 316, Mean Platelet Volume 7.5, Neutrophils (%) (Auto) 45.8, Lymphocytes (%) (Auto) 48.0H, Monocytes (%) (Auto) 3.2, Eosinophils (%) (Auto) 1.7, Basophils (%) (Auto) 1.3, Sodium Level 138, Potassium Level 3.6, Chloride Level 101, Carbon Dioxide Level 30, Anion Gap 7, Blood Urea Nitrogen 35H, Creatinine 1.2, Estimat Glomerular Filtration Rate > 60, Glucose Level 142H, Calcium Level 9.2, Total Bilirubin 0.2, Aspartate Amino Transf (AST/SGOT) 17, Alanine Aminotransferase (ALT/SGPT) 31, Alkaline Phosphatase 78, Total Protein 8.3H, Albumin 3.0L, Globulin 5.3, Albumin/Globulin Ratio 0.6L Current Medications Medications (Trade) Dose Ordered Sig/Virgen Route PRN Reason Start Time Stop Time Status Last Admin Dose Admin Acetaminophen (Tylenol) 650 mg Q4H PRN ORAL Mild Pain/Temp > 100.5 07/26/18 17:00 08/20/18 16:59 Acetaminophen/ Hydrocodone Bitart ([place] 10/325) 1 tab Q4H PRN ORAL Pain Scale (6-10) 07/28/18 17:45 08/04/18 17:44 UNV Aspirin (ASA) 81 mg DAILY ORAL 07/27/18 09:00 08/21/18 08:59 07/28/18 08:28 Divalproex Sodium (Depakote ER) 750 mg BEDTIME ORAL 07/26/18 21:00 08/21/18 20:59 Ferrous Sulfate (Feosol) 325 mg DAILY ORAL 07/27/18 09:00 08/21/18 08:59 07/28/18 08:28 Furosemide (Lasix) 40 mg EVERY 12 HOURS IV 07/26/18 21:00 08/21/18 20:59 07/28/18 08:29 Heparin Sodium (Porcine) (Heparin 5000 units/ml) 5,000 units EVERY 12 HOURS SUBQ 07/26/18 21:00 08/20/18 22:14 Lorazepam (Ativan) 2 mg Q6H PRN ORAL For Anxiety 07/26/18 17:00 07/29/18 16:59 Montelukast Sodium (Singulair) 10 mg Q24H ORAL 07/26/18 17:00 08/21/18 16:59 07/28/18 17:16 Prednisone (predniSONE) 60 mg DAILY ORAL 07/27/18 09:00 08/24/18 08:59 07/28/18 08:29 Salmeterol Xinafoate/ Fluticasone (Advair 250/50 Diskus) 1 puffs EVERY 12 HOURS INH 07/26/18 21:00 08/20/18 20:59 07/28/18 08:04 Rashad Haji MD Jul 28, 2018 17:48
[2018-07-28 20:21] VITALS: BP 139/76
[2018-07-28] MEDS: Depakote ER 250mg tab ORAL SCH (20:36)
[2018-07-28] MEDS: Albuterol/Ipratropium 3ml neb HHN SCH (20:47)
--- NOTE | 2018-07-28 21:19 | General Progress Note ---
Assessment/Plan Problem List: (1) Edema ICD Codes: R60.9 - Edema, unspecified SNOMED: 935135475, [id number] (2) CHF (congestive heart failure) ICD Codes: I50.9 - Heart failure, unspecified SNOMED: 33720439 (3) Anemia, iron deficiency ICD Codes: D50.9 - Iron deficiency anemia, unspecified SNOMED: 85541503 Status: progressing Assessment/Plan chf exacerbation improving edema improving azotemia stable dc in am Subjective ROS Limited/Unobtainable: Yes Allergies: Coded Allergies: PENICILLINS (Verified Allergy, Unknown, 08/31/17) TRAMADOL (Verified Allergy, Unknown, 08/31/17) Objective Last 24 Hour Vital Signs Date Time Temp Pulse Resp B/P (MAP) Pulse Ox O2 Delivery O2 Flow Rate FiO2 07/28/18 21:09 97.9 07/28/18 20:52 Room Air Room Air Room Air 07/28/18 20:52 70 18 99 Room Air 21 07/28/18 20:51 64 18 98 Room Air 21 07/28/18 20:50 64 20 Room Air 21 07/28/18 20:21 97.9 66 20 139/76 (97) 97 07/28/18 20:10 68 18 99 Room Air 21 07/28/18 20:00 64 18 98 Room Air 21 07/28/18 16:00 97.8 60 18 137/65 (89) 98 07/28/18 14:43 98.0 07/28/18 12:00 98.0 59 20 137/65 (89) 100 07/28/18 09:00 Room Air Room Air Room Air 07/28/18 08:04 80 20 96 Room Air 21 07/28/18 08:04 86 18 97 Room Air 21 07/28/18 08:00 97.7 58 18 132/98 (109) 95 07/28/18 00:22 97.7 57 18 131/72 (91) 95 Intake and Output 07/27/18 07/28/18 18:59 06:59 Intake Total 1800 ml 2000 ml Output Total 3500 ml Balance 1800 ml -1500 ml Intake Oral 2000 ml Other 1800 ml Output Urine Total 3500 ml Laboratory Tests 07/28/18 08:15: White Blood Count 9.3, Red Blood Count 5.05, Hemoglobin 12.9L, Hematocrit 40.7L , Mean Corpuscular Volume 81, Mean Corpuscular Hemoglobin 25.6L, Mean Corpuscular Hemoglobin Concent 31.7L, Red Cell Distribution Width 14.8, Platelet Count 316, Mean Platelet Volume 7.5, Neutrophils (%) (Auto) 45.8, Lymphocytes (%) (Auto) 48.0H, Monocytes (%) (Auto) 3.2, Eosinophils (%) (Auto) 1.7, Basophils (%) (Auto) 1.3, Sodium Level 138, Potassium Level 3.6, Chloride Level 101, Carbon Dioxide Level 30, Anion Gap 7, Blood Urea Nitrogen 35H, Creatinine 1.2, Estimat Glomerular Filtration Rate > 60, Glucose Level 142H, Calcium Level 9.2, Total Bilirubin 0.2, Aspartate Amino Transf (AST/SGOT) 17, Alanine Aminotransferase (ALT/SGPT) 31, Alkaline Phosphatase 78, Total Protein 8.3H, Albumin 3.0L, Globulin 5.3, Albumin/Globulin Ratio 0.6L Height (Feet): 6 Height (Inches): 3.00 Weight (Pounds): 301 Respiratory/Chest: chest wall non-tender Abdomen: soft Brittney Shepard MD Jul 28, 2018 21:19
[2018-07-29] VITALS: BP 131/74
[2018-07-29] MEDS: Albuterol/Ipratropium 3ml neb HHN SCH ×4 (01:00→19:00)
[2018-07-29] MEDS: HYDROcodone/Acetamin 10/325 tab ORAL PRN ×5 (03:52→22:29)
[2018-07-29 04:00] VITALS: BP 162/80
[2018-07-29 08:00] VITALS: BP 136/70
[2018-07-29] MEDS: Aspirin Baby 81mg ORAL SCH (08:33)
[2018-07-29] MEDS: Heparin 5000 units/ml inj SUBQ SCH ×2 (08:34→20:42)
[2018-07-29] MEDS: Advair 250/50 Inhaler - 14 dose INH SCH ×2 (09:24→21:38)
--- NOTE | 2018-07-29 10:34 | Cardiac Electrophysiology PN ---
Assessment/Plan Assessment/Plan 1. Bilateral lower extremity edema. Due to CHF due to diastolic dysfunction and chronic lymphedema. Continue Lasix 40 mg IV b.i.d until discharge Echocardiogram showed Nl EF 2. Hypertension. Continue Lasix 3. Chronic obstructive pulmonary disease. 4. Morbid obesity. 5. Hyperlipidemia. JEANETTE RN Subjective Subjective Diuresing on iv Lasix.Wheezing is much better. Objective Last 24 Hour Vital Signs Date Time Temp Pulse Resp B/P (MAP) Pulse Ox O2 Delivery O2 Flow Rate FiO2 07/29/18 09:00 Room Air Room Air Room Air 07/29/18 08:00 97.8 65 12 136/70 (92) 96 07/29/18 07:48 72 18 99 Room Air 21 07/29/18 07:38 70 18 98 Room Air 21 07/29/18 04:22 97.2 07/29/18 04:00 97.2 54 20 162/80 (107) 97 07/29/18 01:16 Room Air 21 07/29/18 01:15 Room Air 21 07/29/18 00:00 98.1 61 19 131/74 (93) 98 07/28/18 20:52 Room Air Room Air Room Air 07/28/18 20:52 70 18 99 Room Air 21 07/28/18 20:51 64 18 98 Room Air 21 07/28/18 20:50 64 20 Room Air 21 07/28/18 20:21 97.9 66 20 139/76 (97) 97 07/28/18 20:10 68 18 99 Room Air 21 07/28/18 20:00 64 18 98 Room Air 21 07/28/18 16:00 97.8 60 18 137/65 (89) 98 07/28/18 14:43 98.0 07/28/18 12:00 98.0 59 20 137/65 (89) 100 Intake and Output 07/28/18 07/29/18 18:59 06:59 Intake Total 720 ml 900 ml Output Total 1300 ml Balance -580 ml 900 ml Intake Oral 720 ml 900 ml Output Urine Total 1300 ml # Voids 5 Objective HEAD AND NECK: No JVD. LUNGS: Decreased breath sounds CARDIOVASCULAR: Regular S1 and S2 with no murmur. ABDOMEN: Soft. EXTREMITIES: 2+ pitting edema. Prosper Crum MD Jul 29, 2018 10:34
--- NOTE | 2018-07-29 10:49 | Pulmonology Progress Note ---
Assessment/Plan Problems: (1) COPD exacerbation (2) Edema (3) CHF (congestive heart failure) (4) Anemia, iron deficiency (5) Nausea & vomiting (6) MDD (major depressive disorder) Assessment/Plan ASSESSMENT: The patient is a 63-year-old male, lifelong nonsmoker with a history of congestive heart failure with diastolic dysfunction, pulmonary hypertension, obesity, likely obstructive sleep apnea, known pulmonary nodules, anemia and asthma, presenting with shortness of breath likely secondary to decompensated heart failure PROBLEM LIST: 1. Shortness of breath likely secondary to decompensated heart failure 2. Asthma without evidence of exacerbation. 3. CHF with diastolic dysfunction, acute exacerbation. 4. Bilateral lower extremity edema, likely secondary to above. 5. Known scattered bilateral subcentimeter nodules, stable on follow-up - per patient being followed up by PULMONARY @ [facility] 6. Anemia. 7. Hypertension. 8. Obesity. 9. Likely THERON. TREATMENT PLAN: 1. Optimize pulmonary hygiene/mobilize as tolerated. 2. P.r.n. O2 to keep saturations greater than 90%. 3. RTC and PRN HHN's 4. Advair 250/50 5. Continue Pred 40 (D6) and taper 6. Monitor volumes, diurese to keep negative as tolerated. Monitor renal function with diuretics 7. F/U cardiology and renal recs 8. Encourage compliance 9. Continue to follow up with [facility] per the patient. 10. DVT prophylaxis, heparin subcutaneous. 11. Weight-loss diet and exercise discussed again. Subjective Allergies: Coded Allergies: PENICILLINS (Verified Allergy, Unknown, 08/31/17) TRAMADOL (Verified Allergy, Unknown, 08/31/17) Subjective Diuresing AFVSS, stable on RA Less SOB, Minimal NELLIE, no cough, marked improvement in wheezing, no CP, no F/C Objective Last 24 Hour Vital Signs Date Time Temp Pulse Resp B/P (MAP) Pulse Ox O2 Delivery O2 Flow Rate FiO2 07/29/18 09:08 97.8 07/29/18 09:00 Room Air Room Air Room Air 07/29/18 08:00 97.8 65 12 136/70 (92) 96 07/29/18 07:48 72 18 99 Room Air 21 07/29/18 07:38 70 18 98 Room Air 21 07/29/18 04:00 97.2 54 20 162/80 (107) 97 07/29/18 01:16 Room Air 21 07/29/18 01:15 Room Air 21 07/29/18 00:00 98.1 61 19 131/74 (93) 98 07/28/18 20:52 Room Air Room Air Room Air 07/28/18 20:52 70 18 99 Room Air 21 07/28/18 20:51 64 18 98 Room Air 21 07/28/18 20:50 64 20 Room Air 21 07/28/18 20:21 97.9 66 20 139/76 (97) 97 07/28/18 20:10 68 18 99 Room Air 21 07/28/18 20:00 64 18 98 Room Air 21 07/28/18 16:00 97.8 60 18 137/65 (89) 98 07/28/18 14:43 98.0 07/28/18 12:00 98.0 59 20 137/65 (89) 100 Intake and Output 07/28/18 07/29/18 19:00 07:00 Intake Total 720 ml 900 ml Output Total 1300 ml Balance -580 ml 900 ml Intake Oral 720 ml 900 ml Output Urine Total 1300 ml # Voids 5 General Appearance: WD/WN, no acute distress HEENT: normocephalic, atraumatic, anicteric, mucous membranes moist Respiratory/Chest: chest wall non-tender, lungs clear, normal breath sounds, expiratory wheezing - faint Cardiovascular: normal peripheral pulses, normal rate, regular rhythm Abdomen: normal bowel sounds, soft, non tender, no organomegaly, non distended , no mass Extremities: no cyanosis, no clubbing, other - trace NELLIE Current Medications Medications (Trade) Dose Ordered Sig/Virgen Route PRN Reason Start Time Stop Time Status Last Admin Dose Admin Acetaminophen (Tylenol) 650 mg Q4H PRN ORAL Mild Pain/Temp > 100.5 07/26/18 17:00 08/20/18 16:59 Acetaminophen/ Hydrocodone Bitart ([place] 10/325) 1 tab Q4H PRN ORAL pain 4-10 07/28/18 17:45 08/04/18 17:44 07/29/18 08:38 Albuterol/ Ipratropium (Albuterol/ Ipratropium) 3 ml Q6HRT HHN 07/28/18 19:00 08/02/18 18:59 07/29/18 07:38 Aspirin (ASA) 81 mg DAILY ORAL 07/27/18 09:00 08/21/18 08:59 07/29/18 08:33 Divalproex Sodium (Depakote ER) 750 mg BEDTIME ORAL 07/26/18 21:00 08/21/18 20:59 Ferrous Sulfate (Feosol) 325 mg DAILY ORAL 07/27/18 09:00 08/21/18 08:59 07/29/18 08:33 Furosemide (Lasix) 40 mg EVERY 12 HOURS IV 07/26/18 21:00 08/21/18 20:59 07/29/18 09:26 Heparin Sodium (Porcine) (Heparin 5000 units/ml) 5,000 units EVERY 12 HOURS SUBQ 07/26/18 21:00 08/20/18 22:14 Lorazepam (Ativan) 2 mg Q6H PRN ORAL For Anxiety 07/26/18 17:00 07/29/18 16:59 Montelukast Sodium (Singulair) 10 mg Q24H ORAL 07/26/18 17:00 08/21/18 16:59 07/28/18 17:16 Prednisone (predniSONE) 40 mg DAILY ORAL 07/29/18 09:00 08/24/18 08:59 07/29/18 08:34 Salmeterol Xinafoate/ Fluticasone (Advair 250/50 Diskus) 1 puffs EVERY 12 HOURS INH 07/26/18 21:00 08/20/18 20:59 07/29/18 09:24 Rashad Haji MD Jul 29, 2018 10:49
--- NOTE | 2018-07-29 10:50 | General Progress Note ---
Assessment/Plan Status: stable Assessment/Plan #. Anemia due to underlying iron deficiency. The patient on prior admission given IV iron. --> ferritin is reviewed and is 82, TIBC is approx 200, likely iron depleted --> cont to monitor and trend cbc --> Hgb goal >7, transfuse prn. --> Cont po iron daily #. Anemia due to hemodilution with chf overload --> as per cardiology, diuresis as required --> seen by Dr. Crum --> no e/o hemolysis #. Borderline mediastinal lymphadenopathy, nonspecific etiology. Multiple small right lung nodules. --> Repeat CT scan in 6 to 12 months. --> f/u with [facility] #. Leukopenia in the past. Hepatitis and HIV is negative. --> Ultrasound showed no acute findings. --> Medications have been reviewed. --> Cont to monitor for improvement. --> given neupogen if anc <1000 #. Congestive heart failure exacerbation versus asthma. as per Dr. Crum. --> cards and pulm recs reviewed --> diuresis as per goal #. Chronic venous stasis lower extremities. #. Chronic obstructive pulmonary disease exacerbation. Shortness of breath. --> Given steroids and Lasix. #. Psych disorder as per Dr. Norman #. DVT prophylaxis with heparin. Appreciate consultation greatly! Subjective Date patient seen: Jul 29, 2018 Allergies: Coded Allergies: PENICILLINS (Verified Allergy, Unknown, 08/31/17) TRAMADOL (Verified Allergy, Unknown, 08/31/17) All Systems: reviewed and negative except above Subjective Pt awake and alert. No acute events. H/H stable. VS stable. Objective Last 24 Hour Vital Signs Date Time Temp Pulse Resp B/P (MAP) Pulse Ox O2 Delivery O2 Flow Rate FiO2 07/29/18 09:08 97.8 07/29/18 09:00 Room Air Room Air Room Air 07/29/18 08:00 97.8 65 12 136/70 (92) 96 07/29/18 07:48 72 18 99 Room Air 21 07/29/18 07:38 70 18 98 Room Air 21 07/29/18 04:00 97.2 54 20 162/80 (107) 97 07/29/18 01:16 Room Air 21 07/29/18 01:15 Room Air 21 07/29/18 00:00 98.1 61 19 131/74 (93) 98 07/28/18 20:52 Room Air Room Air Room Air 07/28/18 20:52 70 18 99 Room Air 21 07/28/18 20:51 64 18 98 Room Air 21 07/28/18 20:50 64 20 Room Air 21 07/28/18 20:21 97.9 66 20 139/76 (97) 97 07/28/18 20:10 68 18 99 Room Air 21 07/28/18 20:00 64 18 98 Room Air 21 07/28/18 16:00 97.8 60 18 137/65 (89) 98 07/28/18 14:43 98.0 07/28/18 12:00 98.0 59 20 137/65 (89) 100 Intake and Output 07/28/18 07/29/18 19:00 07:00 Intake Total 720 ml 900 ml Output Total 1300 ml Balance -580 ml 900 ml Intake Oral 720 ml 900 ml Output Urine Total 1300 ml # Voids 5 Height (Feet): 6 Height (Inches): 3.00 Weight (Pounds): 300 Kade Fermin MD Jul 29, 2018 10:50
[2018-07-29 12:00] VITALS: BP 120/81
[2018-07-29 16:06] VITALS: BP 139/68
[2018-07-29] MEDS: Montelukast 10mg tablet ORAL SCH (18:17)
[2018-07-29 20:00] VITALS: BP 124/70
[2018-07-29] MEDS: Depakote ER 250mg tab ORAL SCH (20:41)
--- NOTE | 2018-07-29 20:42 | General Progress Note ---
Assessment/Plan Problem List: (1) Edema ICD Codes: R60.9 - Edema, unspecified SNOMED: 645147568, [id number] (2) CHF (congestive heart failure) ICD Codes: I50.9 - Heart failure, unspecified SNOMED: 27120968 (3) Anemia, iron deficiency ICD Codes: D50.9 - Iron deficiency anemia, unspecified SNOMED: 74832469 Status: progressing Assessment/Plan chf exacerbation improving edema improving azotemia fluid mangment not hypoxic lyte abnormality Subjective ROS Limited/Unobtainable: Yes Allergies: Coded Allergies: PENICILLINS (Verified Allergy, Unknown, 08/31/17) TRAMADOL (Verified Allergy, Unknown, 08/31/17) Objective Last 24 Hour Vital Signs Date Time Temp Pulse Resp B/P (MAP) Pulse Ox O2 Delivery O2 Flow Rate FiO2 07/29/18 20:00 97.4 66 16 124/70 (88) 96 07/29/18 19:48 66 18 97 Room Air 21 07/29/18 18:48 96.3 07/29/18 16:06 96.3 68 16 139/68 (91) 98 07/29/18 13:15 78 20 99 Room Air 21 07/29/18 13:13 79 22 98 Room Air 21 07/29/18 12:00 96.8 63 16 120/81 (94) 100 07/29/18 11:06 81 20 98 Room Air 21 07/29/18 11:05 81 22 98 Room Air 21 07/29/18 09:00 Room Air Room Air Room Air 07/29/18 08:00 97.8 65 12 136/70 (92) 96 07/29/18 07:48 72 18 99 Room Air 21 07/29/18 07:38 70 18 98 Room Air 21 07/29/18 04:00 97.2 54 20 162/80 (107) 97 07/29/18 01:16 Room Air 21 07/29/18 01:15 Room Air 21 07/29/18 00:00 98.1 61 19 131/74 (93) 98 07/28/18 20:52 Room Air Room Air Room Air 07/28/18 20:52 70 18 99 Room Air 21 07/28/18 20:51 64 18 98 Room Air 21 07/28/18 20:50 64 20 Room Air 21 Intake and Output 07/28/18 07/29/18 19:00 07:00 Intake Total 720 ml 900 ml Output Total 1300 ml Balance -580 ml 900 ml Intake Oral 720 ml 900 ml Output Urine Total 1300 ml # Voids 5 Height (Feet): 6 Height (Inches): 3.00 Weight (Pounds): 300 Cardiovascular: normal rate Respiratory/Chest: lungs clear Abdomen: soft Brittney Shepard MD Jul 29, 2018 20:42
--- NOTE | 2018-07-29 23:52 | General Progress Note ---
Assessment/Plan Problem List: (1) MDD (major depressive disorder) ICD Codes: F32.9 - Major depressive disorder, single episode, unspecified SNOMED: 455562959 Status: stable Assessment/Plan depakote er 750mg qhs as the pt is angry ativan prn for agitation the pt stated that he wanted norco the pt was provided with ro/st Subjective Neurologic/Psychiatric: Reports: anxiety, depressed Allergies: Coded Allergies: PENICILLINS (Verified Allergy, Unknown, 08/31/17) TRAMADOL (Verified Allergy, Unknown, 08/31/17) Subjective The pt is hostile Objective Last 24 Hour Vital Signs Date Time Temp Pulse Resp B/P (MAP) Pulse Ox O2 Delivery O2 Flow Rate FiO2 07/29/18 22:00 Room Air Room Air Room Air 07/29/18 21:40 68 18 96 Room Air 21 07/29/18 21:38 68 20 96 Room Air 21 07/29/18 20:00 97.4 66 16 124/70 (88) 96 07/29/18 19:59 62 18 98 Room Air 21 07/29/18 19:48 66 18 97 Room Air 21 07/29/18 18:48 96.3 07/29/18 16:06 96.3 68 16 139/68 (91) 98 07/29/18 13:15 78 20 99 Room Air 21 07/29/18 13:13 79 22 98 Room Air 21 07/29/18 12:00 96.8 63 16 120/81 (94) 100 07/29/18 11:06 81 20 98 Room Air 21 07/29/18 11:05 81 22 98 Room Air 21 07/29/18 09:00 Room Air Room Air Room Air 07/29/18 08:00 97.8 65 12 136/70 (92) 96 07/29/18 07:48 72 18 99 Room Air 21 07/29/18 07:38 70 18 98 Room Air 21 07/29/18 04:00 97.2 54 20 162/80 (107) 97 07/29/18 01:16 Room Air 21 07/29/18 01:15 Room Air 21 07/29/18 00:00 98.1 61 19 131/74 (93) 98 Intake and Output 07/28/18 07/29/18 18:59 06:59 Intake Total 720 ml 900 ml Output Total 1300 ml Balance -580 ml 900 ml Intake Oral 720 ml 900 ml Output Urine Total 1300 ml # Voids 5 Height (Feet): 6 Height (Inches): 3.00 Weight (Pounds): 300 Alejandro Norman MD Jul 29, 2018 23:52
[2018-07-30] VITALS: BP 118/55
[2018-07-30] MEDS: Albuterol/Ipratropium 3ml neb HHN SCH ×2 (00:25→07:44)
[2018-07-30] MEDS: HYDROcodone/Acetamin 10/325 tab ORAL PRN ×3 (02:40→10:51)
--- NOTE | 2018-07-30 07:08 | General Progress Note ---
Assessment/Plan Assessment/Plan #. Anemia due to underlying iron deficiency. The patient on prior admission given IV iron. --> ferritin is reviewed and is 82, TIBC is approx 200, likely iron depleted --> cont to monitor and trend cbc --> Hgb goal >7, transfuse prn. --> Cont po iron daily --> no e/o hemolysis noted #. Anemia due to hemodilution with chf overload --> as per cardiology, diuresis as required --> seen by Dr. Crum #. Borderline mediastinal lymphadenopathy, nonspecific etiology. Multiple small right lung nodules. --> Repeat CT scan in 6 to 12 months. --> f/u with [facility] #. Leukopenia in the past. Hepatitis and HIV is negative. --> Ultrasound showed no acute findings. --> Medications have been reviewed. --> Cont to monitor for improvement. --> given neupogen if anc <1000 #. Congestive heart failure exacerbation versus asthma. as per Dr. Crum. --> cards and pulm recs reviewed --> diuresis as per goal #. Chronic venous stasis lower extremities. #. Chronic obstructive pulmonary disease exacerbation. initially with shortness of breath. --> Given steroids and Lasix. #. Psych disorder as per Dr. Norman #. DVT prophylaxis with heparin. Appreciate consultation greatly! Subjective Constitutional: Denies: no symptoms, chills, diaphoresis, fever, malaise, weakness, other Cardiovascular: Denies: no symptoms, chest pain, edema, irregular heart rate, lightheadedness, palpitations, syncope, other Respiratory: Denies: no symptoms, cough, orthopnea, shortness of breath, SOB with excertion, SOB at rest, sputum, stridor, wheezing, other Gastrointestinal/Abdominal: Denies: no symptoms, abdomen distended, abdominal pain, black stools, tarry stools, blood in stool, constipated, diarrhea, difficulty swallowing, nausea, poor appetite, poor fluid intake, rectal bleeding , vomiting, other Genitourinary: Denies: no symptoms, burning, discharge, frequency, flank pain, hematuria, incontinence, pain, urgency, other Neurologic/Psychiatric: Reports: no symptoms Endocrine: Reports: no symptoms Hematologic/Lymphatic: Reports: no symptoms Allergies: Coded Allergies: PENICILLINS (Verified Allergy, Unknown, 08/31/17) TRAMADOL (Verified Allergy, Unknown, 08/31/17) Subjective Pt awake and alert. No acute events. H/H stable. VS remains stable. Objective Last 24 Hour Vital Signs Date Time Temp Pulse Resp B/P (MAP) Pulse Ox O2 Delivery O2 Flow Rate FiO2 07/30/18 00:35 68 18 98 Room Air 21 07/30/18 00:24 72 20 96 Room Air 21 07/30/18 00:00 98.4 63 20 118/55 (76) 07/29/18 22:00 Room Air Room Air Room Air 07/29/18 21:40 68 18 96 Room Air 21 07/29/18 21:38 68 20 96 Room Air 21 07/29/18 20:00 97.4 66 16 124/70 (88) 96 07/29/18 19:59 62 18 98 Room Air 21 07/29/18 19:48 66 18 97 Room Air 21 07/29/18 18:48 96.3 07/29/18 16:06 96.3 68 16 139/68 (91) 98 07/29/18 13:15 78 20 99 Room Air 21 07/29/18 13:13 79 22 98 Room Air 21 07/29/18 12:00 96.8 63 16 120/81 (94) 100 07/29/18 11:06 81 20 98 Room Air 21 07/29/18 11:05 81 22 98 Room Air 21 07/29/18 09:00 Room Air Room Air Room Air 07/29/18 08:00 97.8 65 12 136/70 (92) 96 07/29/18 07:48 72 18 99 Room Air 21 07/29/18 07:38 70 18 98 Room Air 21 Intake and Output 07/29/18 07/30/18 19:00 07:00 Intake Total 680 ml Output Total 900 ml Balance -220 ml Intake Oral 680 ml Output Urine Total 900 ml # Voids 3 # Bowel Movements 1 Height (Feet): 6 Height (Inches): 3.00 Weight (Pounds): 299 General Appearance: no apparent distress Cardiovascular: normal rate Respiratory/Chest: no respiratory distress Abdomen: no organomegaly Extremities: non-tender Edema: mild edema Neurologic: oriented x 3 Kade Fermin MD Jul 30, 2018 07:08
[2018-07-30 08:00] VITALS: BP 138/67
[2018-07-30] MEDS: Aspirin Baby 81mg ORAL SCH (08:13)
[2018-07-30] MEDS: Heparin 5000 units/ml inj SUBQ SCH (08:13)
[2018-07-30] MEDS: Advair 250/50 Inhaler - 14 dose INH SCH (09:27)
[2018-07-30 10:06] LABS: BASOPHILS % (AUTO) 2.3 % (0.0-2.0); EOSINOPHILS % (AUTO) 2.4 % (0.0-3.0); HEMATOCRIT 40.9 % (42.0-52.0); HEMOGLOBIN 12.6 G/DL (14.2-18.0); LYMPHOCYTES % (AUTO) 48.3 % (20.0-45.0); MEAN CORPUSCULAR VOLUME 80 FL (80-99); MONOCYTES % (AUTO) 13.2 % (1.0-10.0); NEUTROPHILS % (AUTO) 33.8 % (45.0-75.0); PLATELET COUNT 324 K/UL (150-450); RED BLOOD COUNT 5.09 M/UL (4.70-6.10); RED CELL DISTRIBUTION WIDTH 14.6 % (11.6-14.8)
[2018-07-30 10:16] LABS: ANION GAP 4 mmol/L (5-15); BLOOD UREA NITROGEN 35 mg/dL (7-18); CALCIUM 9.2 MG/DL (8.5-10.1); CARBON DIOXIDE 33 MMOL/L (21-32); CHLORIDE 99 MMOL/L (98-107); CREATININE 1.1 MG/DL (0.55-1.30); POTASSIUM 4.2 MMOL/L (3.5-5.1); SODIUM 136 MMOL/L (136-145)
[2018-07-30 10:21] LABS: ALANINE AMINOTRANSFERASE 32 U/L (12-78); ALBUMIN/GLOBULIN RATIO 0.6 (1.0-2.7); ALKALINE PHOSPHATASE 79 U/L (46-116); ASPARTATE AMINO TRANSFERASE 18 U/L (15-37); BILIRUBIN,TOTAL 0.2 MG/DL (0.2-1.0)
[2018-07-30 12:00] VITALS: BP 133/74
[2018-07-30] MEDS ORDERED: DEPAKOTE ER500 MG ORAL (12:39)
[2018-07-30] MEDS ORDERED: ALBUTEROL2.5 MG/3 M INH (12:40)
[2018-07-30] MEDS ORDERED: PREDNISOLO15 MG/5 M1 ORAL (12:42)
[2018-07-30] MEDS ORDERED: ADVAIR 250-501 EACH INH (12:42)
--- NOTE | 2018-07-30 12:48 | Cardiac Electrophysiology PN ---
Assessment/Plan Assessment/Plan 1. Bilateral lower extremity edema. Due to CHF due to diastolic dysfunction and chronic lymphedema. Continue Lasix 40 mg IV b.i.d until discharge Echocardiogram c Nl EF 2. Hypertension. Continue Lasix 3. Chronic obstructive pulmonary disease. 4. Morbid obesity. 5. Hyperlipidemia. JEANETTE RN Subjective Subjective Diuresing on iv Lasix. Awaiting discharge today. Objective Last 24 Hour Vital Signs Date Time Temp Pulse Resp B/P (MAP) Pulse Ox O2 Delivery O2 Flow Rate FiO2 07/30/18 12:00 97.7 61 20 133/74 (93) 100 07/30/18 09:29 70 14 98 Room Air 21 07/30/18 09:28 70 16 96 Room Air 21 07/30/18 09:00 Room Air Room Air Room Air 07/30/18 08:00 98.4 66 20 138/67 (90) 97 07/30/18 07:48 70 16 98 Room Air 21 07/30/18 07:40 78 16 94 Room Air 21 07/30/18 07:24 98.4 07/30/18 00:35 68 18 98 Room Air 21 07/30/18 00:24 72 20 96 Room Air 21 07/30/18 00:00 98.4 63 20 118/55 (76) 07/29/18 22:00 Room Air Room Air Room Air 07/29/18 21:40 68 18 96 Room Air 21 07/29/18 21:38 68 20 96 Room Air 21 07/29/18 20:00 97.4 66 16 124/70 (88) 96 07/29/18 19:59 62 18 98 Room Air 21 07/29/18 19:48 66 18 97 Room Air 21 07/29/18 16:06 96.3 68 16 139/68 (91) 98 07/29/18 13:15 78 20 99 Room Air 21 07/29/18 13:13 79 22 98 Room Air 21 Intake and Output 07/29/18 07/30/18 19:00 07:00 Intake Total 680 ml Output Total 900 ml Balance -220 ml Intake Oral 680 ml Output Urine Total 900 ml # Voids 3 # Bowel Movements 1 Laboratory Tests Test 07/30/18 09:50 White Blood Count 9.0 K/UL (4.8-10.8) Red Blood Count 5.09 M/UL (4.70-6.10) Hemoglobin 12.6 G/DL (14.2-18.0) L Hematocrit 40.9 % (42.0-52.0) L Mean Corpuscular Volume 80 FL (80-99) Mean Corpuscular Hemoglobin 24.8 PG (27.0-31.0) L Mean Corpuscular Hemoglobin Concent 30.9 G/DL (32.0-36.0) L Red Cell Distribution Width 14.6 % (11.6-14.8) Platelet Count 324 K/UL (150-450) Mean Platelet Volume 7.7 FL (6.5-10.1) Neutrophils (%) (Auto) 33.8 % (45.0-75.0) L Lymphocytes (%) (Auto) 48.3 % (20.0-45.0) H Monocytes (%) (Auto) 13.2 % (1.0-10.0) H Eosinophils (%) (Auto) 2.4 % (0.0-3.0) Basophils (%) (Auto) 2.3 % (0.0-2.0) H Sodium Level 136 MMOL/L (136-145) Potassium Level 4.2 MMOL/L (3.5-5.1) Chloride Level 99 MMOL/L (98-107) Carbon Dioxide Level 33 MMOL/L (21-32) H Anion Gap 4 mmol/L (5-15) L Blood Urea Nitrogen 35 mg/dL (7-18) H Creatinine 1.1 MG/DL (0.55-1.30) Estimat Glomerular Filtration Rate > 60 mL/min (>60) Glucose Level 124 MG/DL (74-106) H Calcium Level 9.2 MG/DL (8.5-10.1) Total Bilirubin 0.2 MG/DL (0.2-1.0) Aspartate Amino Transf (AST/SGOT) 18 U/L (15-37) Alanine Aminotransferase (ALT/SGPT) 32 U/L (12-78) Alkaline Phosphatase 79 U/L (46-116) Total Protein 8.2 G/DL (6.4-8.2) Albumin 3.0 G/DL (3.4-5.0) L Globulin 5.2 g/dL Albumin/Globulin Ratio 0.6 (1.0-2.7) L Objective HEAD AND NECK: No JVD. LUNGS: Decreased breath sounds CARDIOVASCULAR: Regular S1 and S2 with no murmur. ABDOMEN: Soft. EXTREMITIES: 2+ pitting edema. Prosper Crum MD Jul 30, 2018 12:48
--- NOTE | 2018-07-31 13:39 | Discharge Summary ---
Discharge Summary Discharge Summary _ DATE OF ADMISSION: 07/21/2018 DATE OF DISCHARGE: 07/30/2018 DISCHARGED BY: Dr. Brittney Drew CONSULTANTS: Dr. Prosper Hurley BRIEF HOSPITAL COURSE: Patient is a 63-year-old male, history of recurrent admission for CHF exacerbation and edema. He presented to ED complaining of dyspnea/respiratory distress. He was recently admitted to [facility] for renal failure secondary to diuretic use. He stated he was admitted to [facility] secondary to fluid overload and was placed on 80 mg of Lasix daily. He became severely dehydrated and had kidney problems and was admitted to [facility]. His Lasix dose was decreased to 10 mg daily. He had progressive swelling of the lower extremities that had become more severe. He had shortness of breath and dyspnea on exertion. He denied chest pain. He denies any recent illness, no cough or congestion. No fever or chills. On evaluation at the ED, vital signs were stable. Blood work did not show any leukocytosis, hemoglobin and hematocrit were stable. BNP was 200. He was noted to have lower extremity edema and was given a dose of Lasix. There was no evidence of pulmonary edema on chest x-ray. He was given breathing treatment. He was started on oral prednisone. He was then admitted for evaluation of CHF and COPD. He was followed by instructional technology coach. He was given [id number] nebulizer treatment. He was started on Advair 250/50. He was observed off antibiotic treatments and steroids. He was placed on heparin subcutaneously for DVT prophylaxis. Followed by wire rope sling maker. Patient has bilateral lower extremity edema, likely due to CHF with diastolic dysfunction as well as chronic lymphedema. BNP was only 200. He was placed on Lasix 40 mg IV twice daily. Renal function was closely monitored. His echocardiogram showed normal left ventricular systolic function. Patient was hostile and agitated. He was closely followed by psychiatrist. He was diagnosed with major depressive disorder and was given Depakote ER 750 mg nightly. He was complaining of pain on bilateral knee. He was seen by instructor painting. He was given [place]. He continued to be short of breath. He was eventually started on prednisone 40 mg daily. Patient had anemia. Beam Machine Operator was consulted. Patient on prior admission was given IV iron. CT scan showed multiple small right lung nodules. He was recommended repeat CT scan in 6-12 months. He was noted to have leukopenia. Hepatitis and HIV was negative in the past and ultrasound of the abdomen did not show any acute findings. Patient had less SOB with minimal leg edema. There was marked improvement in wheezing. He was cleared for discharge home. FINAL DIAGNOSES: Acute COPD exacerbation Acute on chronic diastolic congestive heart failure Iron deficiency anemia Depressive disorder Nausea and vomiting Lymphedema Morbid obesity Hypertension Hyperlipidemia DISPOSITION: Patient was discharged home. DISCHARGE MEDICATIONS: Refer to Discharge Medication List. DISCHARGE INSTRUCTIONS: Follow-up in a week. I have been assigned to dictate discharge summary on this account, and I was not involved in the patient's management. Brooklyn Francis NP Jul 31, 2018 13:39
== END 2018-07-30 13:35 | disposition home or self-care (01) | DRG 194 ==
LOC: EDBEDREQ 14:16 → EMR 14:40 → 2E 14:45 → EDBEDREQ 15:03 → 2E 15:37 → 4E 07-26 16:33
DX: I11.0 Hypertensive heart disease with heart failure (principal); E66.01 Morbid (severe) obesity due to excess calories; J44.1 Chronic obstructive pulmonary disease with (acute) exacerbation; I50.33 Acute on chronic diastolic (congestive) heart failure; D50.9 Iron deficiency anemia, unspecified; F32.9 Major depressive disorder, single episode, unspecified; R11.2 Nausea with vomiting, unspecified; I89.0 Lymphedema, not elsewhere classified; Z91.19 Patient's noncompliance with other medical treatment and regimen; Z88.6 Allergy status to analgesic agent; Z88.0 Allergy status to penicillin; G47.33 Obstructive sleep apnea (adult) (pediatric)
CPT/HCPCS: 36415; 71045; 80053; 82550; 82553; 84484; 85025; 85610; 85730; 87081; 93005; 93970; 94640; 94664; 96374; 99284; 99285; J7620

== ENCOUNTER 2018-08-22 14:42 | Inpatient (IN) | payer MEDICAID ==
[~2018-08-22] VITALS: Ht 190.5 cm; Wt 130.8 kg
[~2018-08-22 14:42] MED LIST changes: +ALBUTEROL2.5 MG/3 M INH; +DEPAKOTE ER500 MG ORAL; +FUROSEMIDE20 M1 ORAL; +IRON325 M1 PO; +PREDNISOLO15 MG/5 M1 ORAL; +ZOCOR20 MG ORAL
--- NOTE | 2018-08-22 15:00 | NUR ---
ED Nurse Note: Received report. Pt states that he has fallen yesterday morning 08/21/18, falling over on chair and now his left rib is hurting as well as has BLE pain 05/28 and swelling x1 month. Pt from home, ambulatory with aid of seated walker. VS taken and stable. Will continue to monitor and carry out MD's orders.
[2018-08-22 15:05] VITALS: BP 113/56
[2018-08-22] MEDS ORDERED: Albuterol/Ipratropium 3ml neb HHN ONE (15:15)
[2018-08-22] MEDS ORDERED: PANTOPRAZOLE SO20 MG ORAL (15:25)
[2018-08-22] MEDS: Albuterol ud Inhalation HHN SCH ×3 (15:30→16:00)
[2018-08-22] MEDS: Ipratropium 0.02% Inh Soln 2.5ml UD HHN SCH ×3 (15:30→16:00)
[2018-08-22 16:14] LABS: BASOPHILS % (AUTO) 2.2 % (0.0-2.0); EOSINOPHILS % (AUTO) 6.2 % (0.0-3.0); HEMATOCRIT 37.3 % (42.0-52.0); HEMOGLOBIN 11.5 G/DL (14.2-18.0); LYMPHOCYTES % (AUTO) 25.2 % (20.0-45.0); MEAN CORPUSCULAR VOLUME 84 FL (80-99); MONOCYTES % (AUTO) 9.3 % (1.0-10.0); NEUTROPHILS % (AUTO) 57.2 % (45.0-75.0); PLATELET COUNT 197 K/UL (150-450); RED BLOOD COUNT 4.43 M/UL (4.70-6.10); RED CELL DISTRIBUTION WIDTH 15.4 % (11.6-14.8); WHITE BLOOD COUNT 8.2 K/UL (4.8-10.8)
[2018-08-22 16:29] LABS: ANION GAP 9 mmol/L (5-15); BLOOD UREA NITROGEN 25 mg/dL (7-18); CALCIUM 9.7 MG/DL (8.5-10.1); CARBON DIOXIDE 28 MMOL/L (21-32); CHLORIDE 105 MMOL/L (98-107); CREATININE 1.3 MG/DL (0.55-1.30); POTASSIUM 4.7 MMOL/L (3.5-5.1); SODIUM 142 MMOL/L (136-145)
[2018-08-22 16:41] LABS: ALANINE AMINOTRANSFERASE 32 U/L (12-78); ALBUMIN 3.6 G/DL (3.4-5.0); ALBUMIN/GLOBULIN RATIO 0.8 (1.0-2.7); ALKALINE PHOSPHATASE 88 U/L (46-116); ASPARTATE AMINO TRANSFERASE 20 U/L (15-37); BILIRUBIN,TOTAL 0.4 MG/DL (0.2-1.0); CREATINE KINASE 111 U/L (26-308)
[2018-08-22] MEDS ORDERED: Norco 5mg/325mg tab ORAL SCH (16:45)
[2018-08-22] MEDS ORDERED: Norco 5mg/325mg tab ORAL ONE (16:45)
--- NOTE | 2018-08-22 17:12 | Emergency Room Report ---
History of Present Illness General Chief Complaint: Edema Source: Patient Present Illness HPI 63-year-old M presents ED for evaluation. Complaining of right-sided rib pain, shortness of breath, bilateral leg swelling. States he fell yesterday at home. Denies hitting his head or LOC. Complaining of pain to the right side of ribs. 8 out of 10, sharp, nonradiating. Also complaining of shortness of breath. History of asthma. History of CHF. States he was placed on 10 mg of Lasix which she states is not helping. Associated leg swelling. Denies pain. Denies fevers or chills. No other aggravating relieving factors. Denies any other associated symptoms Allergies: Coded Allergies: PENICILLINS (Verified Allergy, Unknown, 08/31/17) TRAMADOL (Verified Allergy, Unknown, 08/31/17) Patient History Past Medical History: HTN, asthma, COPD Past Surgical History: none Pertinent Family History: none Social History: Denies: smoking, alcohol use, drug use Immunizations: UTD Reviewed Nursing Documentation: PMH: Agreed; PSxH: Agreed Nursing Documentation-PMH Hx Cardiac Problems: Yes - CHF Hx Hypertension: Yes Hx Asthma: Yes Hx COPD: Yes Hx Cancer: No Hx Gastrointestinal Problems: No Hx Neurological Problems: No Review of Systems All Other Systems: negative except mentioned in HPI Physical Exam Vital Signs Date Time Temp Pulse Resp B/P (MAP) Pulse Ox O2 Delivery O2 Flow Rate FiO2 08/22/18 14:49 98.1 85 22 123/65 100 Room Air 08/22/18 15:18 21 Sp02 EP Interpretation: reviewed, normal General Appearance: no apparent distress, alert, GCS 15, non-toxic, obese Head: normocephalic, atraumatic Eyes: bilateral eye normal inspection, bilateral eye PERRL ENT: hearing grossly normal, normal pharynx, no angioedema, normal voice Neck: full range of motion, supple/symm/no masses Respiratory: speaking full sentences, wheezing, other - R sided rib pain Cardiovascular #1: regular rate, rhythm, no edema Cardiovascular #2: 2+ carotid (R), 2+ carotid (L), 2+ radial (R), 2+ radial (L) , 2+ dorsalis pedis (R), 2+ dorsalis pedis (L) Gastrointestinal: normal bowel sounds, non tender, soft, non-distended, no guarding, no rebound Rectal: deferred Genitourinary: normal inspection, no CVA tenderness Musculoskeletal: back normal, gait/station normal, normal range of motion, non- tender Neurologic: alert, oriented x3, responsive, motor strength/tone normal, sensory intact, speech normal Psychiatric: judgement/insight normal, memory normal, mood/affect normal, no suicidal/homicidal ideation Reflexes: 3+ bicep (R), 3+ bicep (L), 3+ tricep (R), 3+ tricep (L), 3+ knee (R) , 3+ knee (L) Skin: normal color, no rash, warm/dry, well hydrated Lymphatic: no adenopathy Medical Decision Making Diagnostic Impression: Primary Impression: CHF exacerbation Qualified Codes: I50.9 - Heart failure, unspecified Additional Impressions: COPD exacerbation Rib contusion Qualified Codes: S20.211A - Contusion of right front wall of thorax, initial encounter ER Course Hospital Course 63-year-old male presents ED complaining of shortness of breath, leg swelling, R rib pain s/p fall Differential diagnoses include: IL/unstable angina, contusion, muscle strain, PTX, rib fracture Clinical course Patient placed on stretcher. on cardiac cath lab manager. After initial history and physical I ordered labs, EKG, chest x-ray, CT Chest labs reviewed- no leukocytosis, hemoglobin/hematocrit stable, electrolytes ok, troponins negative, BNP ok Chest x-ray- cardiomegaly. chf EKG - NSR, no acute ischemic changes interpreted by me CT chest - no rib fx given nebulizer treatments. Lasix given. Case discussed with Dr. Shepard and he agreed to accept the patient to his service for further care and support I. I feel this is a highly complex case requiring extensive working including EKG/Rhythm strip, Xray/CT/US, Blood/urine lab work, repeat exams while in ED, and administration of strong opiates/narcotics for pain control, admission to hospital or close patient follow up. Diagnosis - CHF exacerbation, COPD exacerbation, rib contusion admitted to telemetry in serious condition Labs Test 08/22/18 15:38 White Blood Count 8.2 K/UL (4.8-10.8) Red Blood Count 4.43 M/UL (4.70-6.10) Hemoglobin 11.5 G/DL (14.2-18.0) Hematocrit 37.3 % (42.0-52.0) Mean Corpuscular Volume 84 FL (80-99) Mean Corpuscular Hemoglobin 26.0 PG (27.0-31.0) Mean Corpuscular Hemoglobin Concent 30.9 G/DL (32.0-36.0) Red Cell Distribution Width 15.4 % (11.6-14.8) Platelet Count 197 K/UL (150-450) Mean Platelet Volume 7.9 FL (6.5-10.1) Neutrophils (%) (Auto) 57.2 % (45.0-75.0) Lymphocytes (%) (Auto) 25.2 % (20.0-45.0) Monocytes (%) (Auto) 9.3 % (1.0-10.0) Eosinophils (%) (Auto) 6.2 % (0.0-3.0) Basophils (%) (Auto) 2.2 % (0.0-2.0) Sodium Level 142 MMOL/L (136-145) Potassium Level 4.7 MMOL/L (3.5-5.1) Chloride Level 105 MMOL/L (98-107) Carbon Dioxide Level 28 MMOL/L (21-32) Anion Gap 9 mmol/L (5-15) Blood Urea Nitrogen 25 mg/dL (7-18) Creatinine 1.3 MG/DL (0.55-1.30) Estimat Glomerular Filtration Rate > 60 mL/min (>60) Glucose Level 100 MG/DL (74-106) Lactic Acid Level 1.30 mmol/L (0.4-2.0) Calcium Level 9.7 MG/DL (8.5-10.1) Total Bilirubin 0.4 MG/DL (0.2-1.0) Aspartate Amino Transf (AST/SGOT) 20 U/L (15-37) Alanine Aminotransferase (ALT/SGPT) 32 U/L (12-78) Alkaline Phosphatase 88 U/L (46-116) Total Creatine Kinase 111 U/L (26-308) Troponin I 0.006 ng/mL (0.000-0.056) Pro-B-Type Natriuretic Peptide 50 pg/mL (0-125) Total Protein 8.0 G/DL (6.4-8.2) Albumin 3.6 G/DL (3.4-5.0) Globulin 4.4 g/dL Albumin/Globulin Ratio 0.8 (1.0-2.7) EKG Diagnostic Results Rate: normal Rhythm: NSR ST Segments: no acute changes ASA given to the pt in ED: No Rhythm Strip Diag. Results EP Interpretation: yes Rhythm: NSR, no PVC's, no ectopy Chest X-Ray Diagnostic Results Chest X-Ray Diagnostic Results : Chest X-Ray Ordered: Yes # of Views/Limited/Complete: 1 View Indication: Shortness of Breath EP Interpretation: Yes Interpretation: no pneumothorax, no acute cardiopulmonary disease, other - cardiomegaly Impression: Other - chf Electronically Signed by: Electronically signed by Te Fuentes MD CT/MRI/US Diagnostic Results CT/MRI/US Diagnostic Results : Imaging Test Ordered: CT Chest Impression no rib fx. no PTX Last Vital Signs Date Time Temp Pulse Resp B/P (MAP) Pulse Ox O2 Delivery O2 Flow Rate FiO2 08/22/18 15:18 68 16 94 Room Air 21 08/22/18 14:49 98.1 123/65 Status: improved Disposition: ADMITTED INPATIENT Condition: Serious Referrals: [facility],REFERRING (PCP) Te Fuentes MD Aug 22, 2018 17:12
--- NOTE | 2018-08-22 18:00 | NUR ---
NURSE NOTES: Patient arrived to [facility] in room 214-2 with LAKEISHA Bartlett. Patient is AAOx4. air sampling and monitoring initiated. Vital signs taken and recorded. Patient is on 2L NC with no signs of acute distress. Patient is resting in bed. During patient's belonging checklist, patient refused to have his walker examined for valuables. Made patient aware of necessity of reviewing belongings and refused. Charge nurse assisted with medications brought to pharmacy for safekeeping. Will be endorsed to help desk rep.
[2018-08-22 18:15] VITALS: BP 104/66
--- NOTE | 2018-08-22 19:27 | NUR ---
HAND-OFF: Report given to Jaimie Thomas. Patient resting at bedside in no distress.
--- NOTE | 2018-08-22 19:35 | NUR ---
NURSE NOTES: Report received from LAKEISHA Yoo. Pt is lying comfortably in semi-fowlers. A+Ox4, denies pain and SOB. Pt shows no signs of distress. IV site is patent, intact, and saline locked. Respirations are even and unlabored on room air. Bed is at lowest position, brakes engaged, siderails x2, bed alarm on, and call light within reach. Pt is in stable condition at this time, admission orders in; will continue to monitor.
[2018-08-22] MEDS ORDERED: Albuterol ud Inhalation HHN PRN (21:30)
[2018-08-22] MEDS: HYDROcodone/Acetamin 10/325 tab ORAL PRN (22:06)
[2018-08-23] VITALS: BP 132/51
[2018-08-23] MEDS: HYDROcodone/Acetamin 10/325 tab ORAL PRN ×4 (03:35→18:35)
[2018-08-23 04:00] VITALS: BP 111/53
--- NOTE | 2018-08-23 07:20 | NUR ---
NURSE NOTES: received patient report from jake salcido. patient is on bed awake. no acute distress noted. sr on the monitor. no arrythmias reported during the night. call light within reach. will continue to monitor.
--- NOTE | 2018-08-23 07:28 | NUR ---
HAND-OFF: Report given to LAKEISHA Yoo. Pt is in stable condition; plan of care endorsed.
[2018-08-23 07:53] LABS: BASOPHILS % (AUTO) 2.5 % (0.0-2.0); EOSINOPHILS % (AUTO) 7.2 % (0.0-3.0); HEMATOCRIT 33.4 % (42.0-52.0); HEMOGLOBIN 10.4 G/DL (14.2-18.0); LYMPHOCYTES % (AUTO) 43.5 % (20.0-45.0); MEAN CORPUSCULAR VOLUME 84 FL (80-99); MONOCYTES % (AUTO) 8.5 % (1.0-10.0); NEUTROPHILS % (AUTO) 38.4 % (45.0-75.0); PLATELET COUNT 186 K/UL (150-450); RED BLOOD COUNT 3.98 M/UL (4.70-6.10); RED CELL DISTRIBUTION WIDTH 15.1 % (11.6-14.8); WHITE BLOOD COUNT 6.8 K/UL (4.8-10.8)
[2018-08-23 08:00] VITALS: BP 130/65
[2018-08-23 08:27] LABS: ALANINE AMINOTRANSFERASE 26 U/L (12-78); ALBUMIN 2.8 G/DL (3.4-5.0); ALBUMIN/GLOBULIN RATIO 0.7 (1.0-2.7); ALKALINE PHOSPHATASE 76 U/L (46-116); ANION GAP 7 mmol/L (5-15); ASPARTATE AMINO TRANSFERASE 13 U/L (15-37); BILIRUBIN,TOTAL 0.4 MG/DL (0.2-1.0); BLOOD UREA NITROGEN 26 mg/dL (7-18); CALCIUM 8.9 MG/DL (8.5-10.1); CARBON DIOXIDE 28 MMOL/L (21-32); CHLORIDE 107 MMOL/L (98-107); CREATININE 1.2 MG/DL (0.55-1.30); POTASSIUM 4.6 MMOL/L (3.5-5.1); SODIUM 142 MMOL/L (136-145)
[2018-08-23] MEDS: Benazepril 10mg tab ORAL SCH ×2 (08:47→17:18)
[2018-08-23] MEDS: Aspirin Baby 81mg ORAL SCH (08:49)
[2018-08-23] MEDS: Montelukast 10mg tablet ORAL SCH (08:49)
[2018-08-23] MEDS ORDERED: Furosemide 40mg tab ORAL SCH (09:00)
[2018-08-23] MEDS: Advair 250/50 Inhaler - 14 dose INH SCH ×2 (10:08→21:58)
[2018-08-23] MEDS ORDERED: Albuterol/Ipratropium 3ml neb HHN PRN (11:45)
--- NOTE | 2018-08-23 11:55 | Consultation ---
Consult Note Consult Note DATE OF CONSULTATION: 08/23/2017 PULMONARY CONSULTATION CONSULTING PHYSICIAN: Rashad Haji M.D. REFERRING PHYSICIAN: Brittney Shepard M.D. REASON FOR CONSULTATION: Shortness of breath. HISTORY OF PRESENT ILLNESS: The patient is a 63-year-old male with multiple admissions for CHF and COPD, admitted after a fall with R sided chest pain. CT chest has been done but has not been loaded. His breathing is at baseline. He is on PO lasix. He states since his last discharge he has followed up with his PMD, pulmonary and cards @ [facility]. He has no new complaints. No F/C/CP/SOB/N/V/D/ C/abdominal pain/urinary complaints. Edema is @ baseline. PAST MEDICAL HISTORY: 1. Congestive heart failure. 2. Obesity. 3. Likely THERON. 4. Asthma. 5. Hypertension. 6. Anemia. 7. Protein-calorie malnutrition. ALLERGIES: Penicillin and tramadol. MEDICATIONS: Active Scripts Medications Dose Route/Sig Max Daily Dose Days Date Category Dose Instructions Pantoprazole 20 Mg Tablet.dr 40 Mg ORAL DAILY 08/22/18 Reported Advair 250-50 Diskus (Salmeterol Xinafoate/Fluticasone) 1 Each Blst.w.dev 1 Puff INH EVERY 12 HOURS 07/30/18 Reported Prelone* (Prednisolone) 15 Mg/5 Ml Solution 40 Mg ORAL DAILY 07/30/18 Reported Albuterol Sulfate Hhn* (Albuterol Sulfate) 2.5 Mg/3 Ml Vial.neb 3 Ml INH Q6H PRN 07/30/18 Reported Depakote Er* (Divalproex Sodium) 500 Mg Tab.er.24h 750 Mg ORAL BEDTIME 07/30/18 Reported [place] 10-325* (Acetaminophen/Hydrocodone Bitart) 1 Each Tablet 1 Tab ORAL Q4H PRN 07/21/18 Reported PRN PAIN Iron (Ferrous Sulfate) 325 Mg Tablet Unknown Dose PO 07/21/18 Reported Zocor (Simvastatin) 20 Mg Tablet 20 Mg ORAL BEDTIME 07/21/18 Reported Lasix* (Furosemide) 20 Mg Tablet 10 Mg ORAL TWICE A DAY 07/21/18 Reported [place] 10-325* (Acetaminophen/Hydrocodone Bitart) 1 Each Tablet 1 Tab ORAL Q4H PRN 06/23/18 Reported PRN PAIN Zocor (Simvastatin) 20 Mg Tablet 20 Mg ORAL BEDTIME 06/23/18 Reported Lasix* (Furosemide) 40 Mg Tablet 40 Mg ORAL DAILY 04/30/18 Reported Advair 250-50 Diskus (Salmeterol Xinafoate/Fluticasone) 1 Each Blst.w.dev 1 Puff INH EVERY 12 HOURS 04/22/18 Reported Benazepril Hcl* (Benazepril HCl) 20 Mg Tablet 10 Mg ORAL BID 03/30/18 Reported Singulair* (Montelukast Sodium) 10 Mg Tablet 10 Mg ORAL DAILY 08/31/17 Reported Aspirin* (Aspirin) 81 Mg Tab.chew 81 Mg ORAL DAILY 08/31/17 Reported SOCIAL HISTORY: No tobacco, alcohol, or drug use. FAMILY HISTORY: Noncontributory. REVIEW OF SYSTEMS: Negative other than history of present illness. PHYSICAL EXAMINATION: Laboratory Tests Test 08/22/18 15:38 08/23/18 05:35 White Blood Count 8.2 K/UL (4.8-10.8) 6.8 K/UL (4.8-10.8) Red Blood Count 4.43 M/UL (4.70-6.10) L 3.98 M/UL (4.70-6.10) L Hemoglobin 11.5 G/DL (14.2-18.0) L 10.4 G/DL (14.2-18.0) L Hematocrit 37.3 % (42.0-52.0) L 33.4 % (42.0-52.0) L Mean Corpuscular Volume 84 FL (80-99) 84 FL (80-99) Mean Corpuscular Hemoglobin 26.0 PG (27.0-31.0) L 26.1 PG (27.0-31.0) L Mean Corpuscular Hemoglobin Concent 30.9 G/DL (32.0-36.0) L 31.1 G/DL (32.0-36.0) L Red Cell Distribution Width 15.4 % (11.6-14.8) H 15.1 % (11.6-14.8) H Platelet Count 197 K/UL (150-450) 186 K/UL (150-450) Mean Platelet Volume 7.9 FL (6.5-10.1) 7.5 FL (6.5-10.1) Neutrophils (%) (Auto) 57.2 % (45.0-75.0) 38.4 % (45.0-75.0) L Lymphocytes (%) (Auto) 25.2 % (20.0-45.0) 43.5 % (20.0-45.0) Monocytes (%) (Auto) 9.3 % (1.0-10.0) 8.5 % (1.0-10.0) Eosinophils (%) (Auto) 6.2 % (0.0-3.0) H 7.2 % (0.0-3.0) H Basophils (%) (Auto) 2.2 % (0.0-2.0) H 2.5 % (0.0-2.0) H Sodium Level 142 MMOL/L (136-145) 142 MMOL/L (136-145) Potassium Level 4.7 MMOL/L (3.5-5.1) 4.6 MMOL/L (3.5-5.1) Chloride Level 105 MMOL/L (98-107) 107 MMOL/L (98-107) Carbon Dioxide Level 28 MMOL/L (21-32) 28 MMOL/L (21-32) Anion Gap 9 mmol/L (5-15) 7 mmol/L (5-15) Blood Urea Nitrogen 25 mg/dL (7-18) H 26 mg/dL (7-18) H Creatinine 1.3 MG/DL (0.55-1.30) 1.2 MG/DL (0.55-1.30) Estimat Glomerular Filtration Rate > 60 mL/min (>60) > 60 mL/min (>60) Glucose Level 100 MG/DL (74-106) 87 MG/DL (74-106) Lactic Acid Level 1.30 mmol/L (0.4-2.0) Calcium Level 9.7 MG/DL (8.5-10.1) 8.9 MG/DL (8.5-10.1) Total Bilirubin 0.4 MG/DL (0.2-1.0) 0.4 MG/DL (0.2-1.0) Aspartate Amino Transf (AST/SGOT) 20 U/L (15-37) 13 U/L (15-37) L Alanine Aminotransferase (ALT/SGPT) 32 U/L (12-78) 26 U/L (12-78) Alkaline Phosphatase 88 U/L (46-116) 76 U/L (46-116) Total Creatine Kinase 111 U/L (26-308) Troponin I 0.006 ng/mL (0.000-0.056) Pro-B-Type Natriuretic Peptide 50 pg/mL (0-125) Total Protein 8.0 G/DL (6.4-8.2) 6.9 G/DL (6.4-8.2) Albumin 3.6 G/DL (3.4-5.0) 2.8 G/DL (3.4-5.0) L Globulin 4.4 g/dL 4.1 g/dL Albumin/Globulin Ratio 0.8 (1.0-2.7) L 0.7 (1.0-2.7) L GENERAL: He is a well-developed, well-nourished male, in no acute distress. Awake, alert, and oriented x3. HEENT: Normocephalic and atraumatic. Oropharynx clear with moist mucous membranes. NECK: Supple without lymphadenopathy. JVP is elevated. CHEST: Clear. Decreased at the bases. Faint end-expiratory wheezing. HEART: Regular rhythm. ABDOMEN: Soft and nondistended. EXTREMITIES: No cyanosis, clubbing, 2+ NELLIE ANCILLARY DATA: Laboratory Tests Test 08/22/18 15:38 08/23/18 05:35 White Blood Count 8.2 K/UL (4.8-10.8) 6.8 K/UL (4.8-10.8) Red Blood Count 4.43 M/UL (4.70-6.10) L 3.98 M/UL (4.70-6.10) L Hemoglobin 11.5 G/DL (14.2-18.0) L 10.4 G/DL (14.2-18.0) L Hematocrit 37.3 % (42.0-52.0) L 33.4 % (42.0-52.0) L Mean Corpuscular Volume 84 FL (80-99) 84 FL (80-99) Mean Corpuscular Hemoglobin 26.0 PG (27.0-31.0) L 26.1 PG (27.0-31.0) L Mean Corpuscular Hemoglobin Concent 30.9 G/DL (32.0-36.0) L 31.1 G/DL (32.0-36.0) L Red Cell Distribution Width 15.4 % (11.6-14.8) H 15.1 % (11.6-14.8) H Platelet Count 197 K/UL (150-450) 186 K/UL (150-450) Mean Platelet Volume 7.9 FL (6.5-10.1) 7.5 FL (6.5-10.1) Neutrophils (%) (Auto) 57.2 % (45.0-75.0) 38.4 % (45.0-75.0) L Lymphocytes (%) (Auto) 25.2 % (20.0-45.0) 43.5 % (20.0-45.0) Monocytes (%) (Auto) 9.3 % (1.0-10.0) 8.5 % (1.0-10.0) Eosinophils (%) (Auto) 6.2 % (0.0-3.0) H 7.2 % (0.0-3.0) H Basophils (%) (Auto) 2.2 % (0.0-2.0) H 2.5 % (0.0-2.0) H Sodium Level 142 MMOL/L (136-145) 142 MMOL/L (136-145) Potassium Level 4.7 MMOL/L (3.5-5.1) 4.6 MMOL/L (3.5-5.1) Chloride Level 105 MMOL/L (98-107) 107 MMOL/L (98-107) Carbon Dioxide Level 28 MMOL/L (21-32) 28 MMOL/L (21-32) Anion Gap 9 mmol/L (5-15) 7 mmol/L (5-15) Blood Urea Nitrogen 25 mg/dL (7-18) H 26 mg/dL (7-18) H Creatinine 1.3 MG/DL (0.55-1.30) 1.2 MG/DL (0.55-1.30) Estimat Glomerular Filtration Rate > 60 mL/min (>60) > 60 mL/min (>60) Glucose Level 100 MG/DL (74-106) 87 MG/DL (74-106) Lactic Acid Level 1.30 mmol/L (0.4-2.0) Calcium Level 9.7 MG/DL (8.5-10.1) 8.9 MG/DL (8.5-10.1) Total Bilirubin 0.4 MG/DL (0.2-1.0) 0.4 MG/DL (0.2-1.0) Aspartate Amino Transf (AST/SGOT) 20 U/L (15-37) 13 U/L (15-37) L Alanine Aminotransferase (ALT/SGPT) 32 U/L (12-78) 26 U/L (12-78) Alkaline Phosphatase 88 U/L (46-116) 76 U/L (46-116) Total Creatine Kinase 111 U/L (26-308) Troponin I 0.006 ng/mL (0.000-0.056) Pro-B-Type Natriuretic Peptide 50 pg/mL (0-125) Total Protein 8.0 G/DL (6.4-8.2) 6.9 G/DL (6.4-8.2) Albumin 3.6 G/DL (3.4-5.0) 2.8 G/DL (3.4-5.0) L Globulin 4.4 g/dL 4.1 g/dL Albumin/Globulin Ratio 0.8 (1.0-2.7) L 0.7 (1.0-2.7) L CT-CHEST: done and pending Assessment/Plan ASSESSMENT: The patient is a 63-year-old male, lifelong nonsmoker with a history of congestive heart failure with diastolic dysfunction, pulmonary hypertension, obesity, likely obstructive sleep apnea, known pulmonary nodules, anemia and asthma, presenting with shortness of breath likely secondary to decompensated heart failure PROBLEM LIST: 1. Mechanical fall --> R rib pain ---> No Fx per report 2. Asthma without evidence of exacerbation. 3. CHF with diastolic dysfunction, 4. Bilateral lower extremity edema, likely secondary to above. 5. Known scattered bilateral subcentimeter nodules, stable on follow-up - per patient being followed up by PULMONARY @ [facility] 6. Anemia. 7. Hypertension. 8. Obesity. 9. Likely THERON. TREATMENT PLAN: 1. Optimize pulmonary hygiene/mobilize as tolerated. 2. P.r.n. O2 to keep saturations greater than 90%. 3. RTC and PRN HHN's 4. Advair 250/50 5. Observe off antibiotics and steroids 6. Monitor volumes, continue PO lasix 7. F/U final CT-CHEST 8. Incentive spirometry 9. Pain control/supportive care 10. Continue to follow up with [facility] Pulmonary Clinic per the patient. 11. DVT prophylaxis, heparin subcutaneous. 12. Weight-loss diet and exercise discussed again. Rashad Haji MD, Ashkan L. MD Aug 23, 2018 11:55
[2018-08-23 12:00] VITALS: BP 112/50
--- NOTE | 2018-08-23 13:40 | Cardiac Electrophysiology PN ---
Subjective Subjective [id number] Objective Last 24 Hour Vital Signs Date Time Temp Pulse Resp B/P (MAP) Pulse Ox O2 Delivery O2 Flow Rate FiO2 08/23/18 12:00 98.2 71 19 112/50 (70) 95 71 08/23/18 10:08 89 18 98 Room Air 21 08/23/18 10:08 89 18 98 Room Air 21 08/23/18 09:01 Room Air 08/23/18 09:00 Room Air 08/23/18 08:47 130/65 08/23/18 08:00 60 08/23/18 08:00 98.2 69 22 130/65 (86) 96 69 08/23/18 04:00 70 08/23/18 04:00 98.0 62 17 111/53 (72) 97 62 08/23/18 00:00 98.6 71 18 132/51 (78) 93 71 08/23/18 00:00 65 08/22/18 20:17 Room Air 08/22/18 20:00 66 08/22/18 18:33 73 08/22/18 18:15 98.2 79 20 104/66 (79) 100 79 08/22/18 17:30 98.0 83 21 117/60 100 Nasal Cannula 2.0 08/22/18 15:18 68 16 94 Room Air 21 08/22/18 15:18 68 16 Room Air 21 08/22/18 15:18 21 08/22/18 15:05 98.1 80 26 113/56 100 Room Air 08/22/18 15:00 80 26 Room Air 08/22/18 14:49 98.1 85 22 123/65 100 Room Air Intake and Output 08/22/18 08/23/18 19:00 07:00 Intake Total 600 ml 200 ml Output Total 750 ml Balance 600 ml -550 ml Intake Oral 600 ml 200 ml Output Urine Total 750 ml # Voids 2 3 Laboratory Tests Test 08/22/18 15:38 08/23/18 05:35 White Blood Count 8.2 K/UL (4.8-10.8) 6.8 K/UL (4.8-10.8) Red Blood Count 4.43 M/UL (4.70-6.10) L 3.98 M/UL (4.70-6.10) L Hemoglobin 11.5 G/DL (14.2-18.0) L 10.4 G/DL (14.2-18.0) L Hematocrit 37.3 % (42.0-52.0) L 33.4 % (42.0-52.0) L Mean Corpuscular Volume 84 FL (80-99) 84 FL (80-99) Mean Corpuscular Hemoglobin 26.0 PG (27.0-31.0) L 26.1 PG (27.0-31.0) L Mean Corpuscular Hemoglobin Concent 30.9 G/DL (32.0-36.0) L 31.1 G/DL (32.0-36.0) L Red Cell Distribution Width 15.4 % (11.6-14.8) H 15.1 % (11.6-14.8) H Platelet Count 197 K/UL (150-450) 186 K/UL (150-450) Mean Platelet Volume 7.9 FL (6.5-10.1) 7.5 FL (6.5-10.1) Neutrophils (%) (Auto) 57.2 % (45.0-75.0) 38.4 % (45.0-75.0) L Lymphocytes (%) (Auto) 25.2 % (20.0-45.0) 43.5 % (20.0-45.0) Monocytes (%) (Auto) 9.3 % (1.0-10.0) 8.5 % (1.0-10.0) Eosinophils (%) (Auto) 6.2 % (0.0-3.0) H 7.2 % (0.0-3.0) H Basophils (%) (Auto) 2.2 % (0.0-2.0) H 2.5 % (0.0-2.0) H Sodium Level 142 MMOL/L (136-145) 142 MMOL/L (136-145) Potassium Level 4.7 MMOL/L (3.5-5.1) 4.6 MMOL/L (3.5-5.1) Chloride Level 105 MMOL/L (98-107) 107 MMOL/L (98-107) Carbon Dioxide Level 28 MMOL/L (21-32) 28 MMOL/L (21-32) Anion Gap 9 mmol/L (5-15) 7 mmol/L (5-15) Blood Urea Nitrogen 25 mg/dL (7-18) H 26 mg/dL (7-18) H Creatinine 1.3 MG/DL (0.55-1.30) 1.2 MG/DL (0.55-1.30) Estimat Glomerular Filtration Rate > 60 mL/min (>60) > 60 mL/min (>60) Glucose Level 100 MG/DL (74-106) 87 MG/DL (74-106) Lactic Acid Level 1.30 mmol/L (0.4-2.0) Calcium Level 9.7 MG/DL (8.5-10.1) 8.9 MG/DL (8.5-10.1) Total Bilirubin 0.4 MG/DL (0.2-1.0) 0.4 MG/DL (0.2-1.0) Aspartate Amino Transf (AST/SGOT) 20 U/L (15-37) 13 U/L (15-37) L Alanine Aminotransferase (ALT/SGPT) 32 U/L (12-78) 26 U/L (12-78) Alkaline Phosphatase 88 U/L (46-116) 76 U/L (46-116) Total Creatine Kinase 111 U/L (26-308) Troponin I 0.006 ng/mL (0.000-0.056) Pro-B-Type Natriuretic Peptide 50 pg/mL (0-125) Total Protein 8.0 G/DL (6.4-8.2) 6.9 G/DL (6.4-8.2) Albumin 3.6 G/DL (3.4-5.0) 2.8 G/DL (3.4-5.0) L Globulin 4.4 g/dL 4.1 g/dL Albumin/Globulin Ratio 0.8 (1.0-2.7) L 0.7 (1.0-2.7) L Prosper Crum MD Aug 23, 2018 13:40
[2018-08-23] MEDS: Albuterol/Ipratropium 3ml neb HHN SCH ×2 (13:54→19:38)
--- NOTE | 2018-08-23 14:21 | NUR ---
CASE MANAGEMENT:REVIEW FROM HOME TO ER CC; S/P FALL YESTERDAY. C/O RIB CAFE PAIN. BLE SWELLING SI:CHF. COPD EXACERBATION. RIB CONTUSION 98.1 85 22 123/65 100% ON RA BUN+25 TROPONIN(-) IS: IV LASIX DUONEB HHN 2 ALBUTEROL HHN X1 BLOOD CX CT CHEST : TO TELEMETRY INTERQUAL CRITERIA MET
--- NOTE | 2018-08-23 15:50 | Diagnostic Imaging Report ---
Indication: Chest pain Comparison: 07/21/2018 A single view chest radiograph was obtained. Findings: Cardiomediastinal appearance is within normal limits for age. The lungs are clear. Pulmonary vascularity is appropriate. The diaphragmatic contour is smooth and costophrenic angles are sharp. No pleural effusions are identified. The bones are unremarkable. Impression: No acute findings
--- NOTE | 2018-08-23 15:50 | Diagnostic Imaging Report ---
Indication: Chest pain. Skin lesion left chest. Low back pain following trauma Technique: Continuous helical transaxial imaging of the chest was obtained from the thoracic inlet to the upper abdomen. No intravenous contrast was administered. Coronal 2-D reformats were also obtained. Total Dose length Product (DLP): 1001.[address] Dose Index Volume (CTDIvol): 24.61 mGy Comparison: 03/31/2018 Findings: The lungs are clear. No pleural effusion identified. No mediastinal fluid or adenopathy appreciated. No acute fractures are identified. There are probable old rib fractures posteriorly on the left. Chest wall appears unremarkable. Visualized upper abdomen is unremarkable. IMPRESSION: No acute findings [place] [facility] [place] [employer] and the scans are performed using dose optimization techniques as appropriate to a performed exam including Automatic Exposure control.
[2018-08-23 16:00] VITALS: BP 130/69
--- NOTE | 2018-08-23 16:30 | Consultation ---
DATE OF CONSULTATION: 08/23/2018 CARDIOLOGY CONSULTATION CONSULTING PHYSICIAN: Prosper Crum M.D. REFERRING PHYSICIAN: Brtitney Shepard M.D. REASON FOR CONSULTATION: Congestive heart failure exacerbation. HISTORY OF PRESENT ILLNESS: The patient is a 63-year-old gentleman with multiple hospitalizations for congestive heart failure as well as COPD. The patient was admitted after a fall with right-sided chest pain. CT of the chest was performed. 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 The patient was admitted. Cardiology consultation was obtained for further evaluation and management. REVIEW OF SYSTEMS: Negative other than what was mentioned in the history of present illness. PAST MEDICAL HISTORY: 1. Hypertension. 2. Congestive heart failure. 3. Morbid obesity. 4. Obstructive sleep apnea. 5. Anemia. 6. Protein-calorie malnutrition. ALLERGIES: He is allergic to tramadol and penicillin. MEDICATIONS: Per reconciliation. PHYSICAL EXAMINATION: VITAL SIGNS: Blood pressure is 112/50, pulse 71, respiration 19, temperature 98.2. HEAD AND NECK: Showed no JVD. LUNGS: Clear. CARDIOVASCULAR: Shows regular S1 and S2 with no gallop or murmur. ABDOMEN: Soft. EXTREMITIES: He has 3+ pitting edema. LABORATORY AND DIAGNOSTIC DATA: His labs show white count of 6.8, hematocrit 10.5, hematocrit 33.5, and platelet count of 186,000. Sodium 142, potassium 4.3, BUN of 22, creatinine 1.5, glucose of 87. Troponin is negative. His BNP is 60. ASSESSMENT AND PLAN: 1. Severe bilateral lower extremity edema. BNP is in normal range. I will put him on Lasix 40 mg IV b.i.d. 2. Hypertension, on Lasix and lisinopril 20 mg b.i.d. 3. COPD, on albuterol and Advair. 4. Hyperlipidemia, on Lipitor. 5. Morbid obesity. Thank you very much, Dr. Shepard, for allowing me to participate in the care of this patient. Please do not hesitate to contact me for any questions regarding my evaluation. Prosper Crum M.D. DR: Delmi JOB#: [id number] CC:
--- NOTE | 2018-08-23 19:19 | NUR ---
HAND-OFF: Report given to faith salcido.
--- NOTE | 2018-08-23 19:25 | NUR ---
NURSE NOTES: Received report from LAKEISHA Yoo. Patient is awake lying semi-fang's watching TV; resting comfortably. No signs of acute distress noted; complains of pain. AOx4; able to make needs known. Checked IV site; patent and flushed. No erythema, bleeding, or infiltration noted. Explained to patient that SCDs are contraindicated for edematous legs, but patient adamantly insists to have them on. Risks and benefits explained x3; still insisting. Urinal easily accessible. Patient's own walker at bedside. Bed at lowest position, brakes on, siderails up x3. Call light within reach. Will continue to monitor.
[2018-08-23 20:00] VITALS: BP 109/40
--- NOTE | 2018-08-23 21:15 | NUR ---
NURSE NOTES: Called Dr. Shepard regarding patient's complaint of 9/10 pain on his left lateral chest unrelieved by Justice. Notified him that patient is requesting for either Morphine or Dilaudid at this time. Awaiting callback.
--- NOTE | 2018-08-23 22:10 | NUR ---
NURSE NOTES: Received order from Dr. Shepard to call Dr. Hurley for pain medication orders. Noted and carried out.
--- NOTE | 2018-08-23 22:27 | NUR ---
NURSE NOTES: Received order from ADRIAN Lange of Dr. Hurley for Morphine 2mg IV ONCE. Noted and carried out.
[2018-08-23] MEDS ORDERED: Morphine Sulfate 4mg/ml Inj (IV/IM USE ONLY) IVP ONE (22:30)
--- NOTE | 2018-08-23 23:00 | History and Physical Report ---
DATE OF ADMISSION: 08/22/2018 HISTORY OF PRESENT ILLNESS: The patient has recurrent readmission. The patient had admitted for fall, status post left-sided pain. Also, the patient has severe edema and has history of CHF. The patient still complains of bilateral leg swelling worsening, shortness of breath, and orthopnea. Denies head injury after the fall. Complains of pain in the left side. He has history of asthma and shortness of breath. He does have orthopnea as well. Denies wheezing. PAST MEDICAL HISTORY: COPD, hypertension, asthma, CHF, leg edema, hyperlipidemia, and chronic renal insufficiency. PAST SURGICAL HISTORY: Denies. ALLERGIES: Tramadol and penicillin. MEDICATIONS: Aspirin, benazepril, Depakote, ferrous sulfate, Lasix, Protonix, and simvastatin. FAMILY HISTORY: Noncontributory. SOCIAL HISTORY: Denies smoking, alcohol, or illicit drugs. REVIEW OF SYSTEMS: HEENT: Denies headaches. RESPIRATORY: Reports shortness of breath . CARDIOVASCULAR: Reports orthopnea and rib cage pain after the fall. ABDOMEN: Denies nausea, vomiting, or diarrhea. Denies any heartburn. EXTREMITIES: He has also bilateral lower extremity pain. CENTRAL NERVOUS SYSTEM: No change in vision or speech pattern. PHYSICAL EXAMINATION: VITAL SIGNS: Temperature 98.2, pulse 71, and blood pressure 112/72. HEENT: PERRLA. NECK: Supple. No lymphadenopathy. CHEST: Clear to auscultation. CARDIOVASCULAR: Regular rate and rhythm. There is no murmur. GASTROINTESTINAL: Soft, nondistended. Positive bowel sounds. No organomegaly. EXTREMITIES: He does have 2+ pitting edema on both lower extremities. Reflexes on both sides. He is able to move his extremities. LABORATORY AND DIAGNOSTIC DATA: WBC of 8.2, hemoglobin , and platelets 197,000. Sodium 142, potassium 4.7, BUN 25, creatinine 1.3, and glucose 100. Troponin is negative. No significant EKG changes. ASSESSMENT AND PLAN: Status post fall, status post CHF exacerbation, lower extremity edema, and left-sided chest wall pain after the fall, rule out acute coronary syndrome. I have asked Dr. Hardwick, Dr. Crum, and Dr. Haji to see the patient for the above-mentioned diagnoses and treatment. Ali Yuri Shepard DR: ANAHY JOB#: [id number] CC:
[2018-08-24] VITALS: BP 111/56
[2018-08-24] MEDS: Albuterol/Ipratropium 3ml neb HHN SCH ×5 (01:00→19:28)
--- NOTE | 2018-08-24 03:17 | NUR ---
NURSE NOTES: Patient is awake sitting on the bed; resting comfortably. No signs of acute distress noted; denies pain at this time.
[2018-08-24 04:00] VITALS: BP 101/55
[2018-08-24] MEDS: HYDROcodone/Acetamin 10/325 tab ORAL PRN ×5 (06:34→22:33)
--- NOTE | 2018-08-24 07:20 | NUR ---
HAND-OFF: Report given to LAKEISHA Alvarez. Patient is awake lying high-fang's eating breakfast. In stable condition.
[2018-08-24 07:49] VITALS: BP 112/59
--- NOTE | 2018-08-24 07:56 | NUR ---
NURSE NOTES: pt awake alert, no distress. no sob. call light within reach. will monitor. bed in lowest position, locked.
[2018-08-24] MEDS: Aspirin Baby 81mg ORAL SCH (08:18)
[2018-08-24] MEDS: Montelukast 10mg tablet ORAL SCH (08:18)
[2018-08-24] MEDS: Benazepril 10mg tab ORAL SCH ×2 (08:18→17:33)
--- NOTE | 2018-08-24 08:25 | NUR ---
CASE MANAGEMENT:REVIEW 08/24/18 SI: CHF. COPD EXACERBATION. RIB CONTUSION...S/P FALL 98.2 58 20 112/59 96% ON 2L/NC IS: IV LASIX Q12 DUONEB HHN Q6HRS RTC ASA PO QD ADVAIR INH Q12 SINGULAR PO QD LOTENSIN PO BID NOR[place] 10/325MG PO Q4HRS PRN TELEMETRY STATUS DCP; FROM HOME PLAN: PAIN MGMT
[2018-08-24] MEDS: Advair 250/50 Inhaler - 14 dose INH SCH ×2 (10:06→19:28)
[2018-08-24] MEDS ORDERED: NS 275ml ONE (11:01)
--- NOTE | 2018-08-24 11:47 | General Progress Note ---
Assessment/Plan Assessment/Plan (1) B/L LE pain (2) Edema (3) B/L knee pain (4) B/L Knee OA (5) Morbid obesity Pt to be continued on [place]. D/w Dr. Hurley and he concurred. Subjective Date patient seen: Aug 24, 2018 Time patient seen: 10:15 - am Allergies: Coded Allergies: PENICILLINS (Verified Allergy, Unknown, 08/31/17) TRAMADOL (Verified Allergy, Unknown, 08/31/17) Subjective REVIEW OF SYSTEMS: Denies rash, fever, chills, sweating, dizziness, drowsiness, blurred vision, sore throat, or change in weight. No shortness of breath or chest pain. No nausea, vomiting, diarrhea, or blood in the stool or urine. No bowel or bladder incontinence. No dysuria. He is complaining of bilateral lower extremity pain. SUBJECTIVE: Patient is a known patient from prior admission. Has been admitted under the care of Dr. Shepard. Still has c/o knee pain. As well has left chest wall pain CT scan was negative for fracture. Was started on [place] 10/325mg PO 1 tab Q4H PRN severe pain. A one time dose of Morphine 2mg IV was given to patient which has helped to reduce his pain and will continue on the [place]. Objective Last 24 Hour Vital Signs Date Time Temp Pulse Resp B/P (MAP) Pulse Ox O2 Delivery O2 Flow Rate FiO2 08/24/18 10:06 89 18 98 Room Air 21 08/24/18 10:06 80 18 98 Room Air 21 08/24/18 08:18 112/59 08/24/18 07:59 58 08/24/18 07:53 63 18 96 Room Air 21 08/24/18 07:52 Nasal Cannula 2.0 08/24/18 07:49 98.2 58 20 112/59 (76) 96 08/24/18 07:42 21 08/24/18 07:42 68 16 99 Nasal Cannula 2.0 28 08/24/18 07:04 98.2 08/24/18 04:00 60 08/24/18 04:00 98.2 54 20 101/55 (70) 96 08/24/18 01:05 Nasal Cannula 2.0 28 08/24/18 01:05 Nasal Cannula 2.0 28 08/24/18 00:00 98.2 70 20 111/56 (74) 94 08/24/18 00:00 60 08/23/18 21:58 75 18 93 Room Air 21 08/23/18 21:58 75 18 93 Room Air 21 08/23/18 21:00 Room Air 08/23/18 20:00 69 08/23/18 20:00 98.0 67 20 109/40 (63) 98 08/23/18 19:50 92 18 99 Nasal Cannula 2.0 28 08/23/18 19:38 21 08/23/18 19:38 65 16 99 Nasal Cannula 2.0 28 08/23/18 17:18 130/69 08/23/18 16:00 98.9 60 21 130/69 (89) 99 60 08/23/18 16:00 61 08/23/18 14:06 63 18 96 Room Air 21 08/23/18 13:55 21 08/23/18 13:55 72 16 95 Room Air 21 08/23/18 12:00 69 08/23/18 12:00 98.2 71 19 112/50 (70) 95 71 Intake and Output 08/23/18 08/24/18 19:00 07:00 Intake Total 560 ml 480 ml Output Total 1400 ml 2900 ml Balance -840 ml -2420 ml Intake Oral 560 ml 480 ml Output Urine Total 1400 ml 2900 ml # Voids 7 Height (Feet): 6 Height (Inches): 3.00 Weight (Pounds): 330 Leonel Singer Aug 24, 2018 11:47
--- NOTE | 2018-08-24 12:20 | Pulmonology Progress Note ---
Assessment/Plan Assessment/Plan ASSESSMENT: The patient is a 63-year-old male, lifelong nonsmoker with a history of congestive heart failure with diastolic dysfunction, pulmonary hypertension, obesity, likely obstructive sleep apnea, known pulmonary nodules, anemia and asthma, presenting with shortness of breath likely secondary to decompensated heart failure PROBLEM LIST: 1. Mechanical fall --> R rib pain ---> No Fx per report 2. Asthma without evidence of exacerbation. 3. CHF with diastolic dysfunction, 4. Bilateral lower extremity edema, likely secondary to above. 5. Known scattered bilateral subcentimeter nodules, stable on follow-up - per patient being followed up by PULMONARY @ [facility] 6. Anemia. 7. Hypertension. 8. Obesity. 9. Likely THERON. TREATMENT PLAN: 1. Optimize pulmonary hygiene/mobilize as tolerated. 2. P.r.n. O2 to keep saturations greater than 90%. 3. RTC and PRN HHN's 4. Advair 250/50 5. Observe off antibiotics and steroids 6. Monitor volumes, diuresis per cards 7. F/U cardiology recs 8. Incentive spirometry 9. Pain control/supportive care 10. Continue to follow up with [facility] Pulmonary Clinic per the patient. 11. DVT prophylaxis, heparin subcutaneous. 12. Weight-loss diet and exercise discussed again. Subjective Allergies: Coded Allergies: PENICILLINS (Verified Allergy, Unknown, 08/31/17) TRAMADOL (Verified Allergy, Unknown, 08/31/17) Subjective -3.2L AFVSS stable on RA Less SOB No CP, No F/C, No wheezing Objective Last 24 Hour Vital Signs Date Time Temp Pulse Resp B/P (MAP) Pulse Ox O2 Delivery O2 Flow Rate FiO2 08/24/18 11:02 98.2 08/24/18 10:06 89 18 98 Room Air 21 08/24/18 10:06 80 18 98 Room Air 21 08/24/18 08:18 112/59 08/24/18 07:59 58 08/24/18 07:53 63 18 96 Room Air 21 08/24/18 07:52 Nasal Cannula 2.0 08/24/18 07:49 98.2 58 20 112/59 (76) 96 08/24/18 07:42 21 08/24/18 07:42 68 16 99 Nasal Cannula 2.0 28 08/24/18 04:00 60 08/24/18 04:00 98.2 54 20 101/55 (70) 96 08/24/18 01:05 Nasal Cannula 2.0 28 08/24/18 01:05 Nasal Cannula 2.0 28 08/24/18 00:00 98.2 70 20 111/56 (74) 94 08/24/18 00:00 60 08/23/18 21:58 75 18 93 Room Air 21 08/23/18 21:58 75 18 93 Room Air 21 08/23/18 21:00 Room Air 08/23/18 20:00 69 08/23/18 20:00 98.0 67 20 109/40 (63) 98 08/23/18 19:50 92 18 99 Nasal Cannula 2.0 28 08/23/18 19:38 21 08/23/18 19:38 65 16 99 Nasal Cannula 2.0 28 08/23/18 17:18 130/69 08/23/18 16:00 98.9 60 21 130/69 (89) 99 60 08/23/18 16:00 61 08/23/18 14:06 63 18 96 Room Air 21 08/23/18 13:55 21 08/23/18 13:55 72 16 95 Room Air 21 Intake and Output 08/23/18 08/24/18 19:00 07:00 Intake Total 560 ml 480 ml Output Total 1400 ml 2900 ml Balance -840 ml -2420 ml Intake Oral 560 ml 480 ml Output Urine Total 1400 ml 2900 ml # Voids 7 General Appearance: no acute distress, other - obese male HEENT: normocephalic, atraumatic, anicteric, mucous membranes moist Respiratory/Chest: lungs clear, normal breath sounds, no respiratory distress, no accessory muscle use Cardiovascular: normal peripheral pulses, normal rate, regular rhythm Abdomen: normal bowel sounds, soft, non tender, no organomegaly, non distended , no mass Extremities: no cyanosis, no clubbing, other - NELLIE Microbiology Date/Time Source Procedure Growth Status 08/22/18 15:38 Blood Blood Culture - Preliminary NO GROWTH AFTER 24 HOURS Resulted 08/22/18 15:20 Blood Blood Culture - Preliminary NO GROWTH AFTER 24 HOURS Resulted Current Medications Medications (Trade) Dose Ordered Sig/Virgen Route PRN Reason Start Time Stop Time Status Last Admin Dose Admin Acetaminophen/ Hydrocodone Bitart ([place] 10/325) 1 tab Q4H PRN ORAL For Pain 1/4/19 21:45 08/29/18 21:44 08/24/18 10:32 Albuterol/ Ipratropium (Albuterol/ Ipratropium) 3 ml Q4H PRN HHN Shortness of Breath 08/23/18 11:45 08/28/18 11:44 Albuterol/ Ipratropium (Albuterol/ Ipratropium) 3 ml Q6HRT HHN 08/23/18 13:00 08/28/18 12:59 08/24/18 07:42 Aspirin (ASA) 81 mg DAILY ORAL 08/23/18 09:00 09/22/18 08:59 08/24/18 08:18 Atorvastatin Calcium (Lipitor) 10 mg BEDTIME ORAL 08/22/18 22:15 09/21/18 22:14 08/23/18 20:19 Benazepril HCl (Lotensin) 20 mg BID ORAL 08/23/18 09:00 09/22/18 08:59 08/24/18 08:18 Furosemide (Lasix) 40 mg EVERY 12 HOURS IV 08/23/18 21:00 09/22/18 20:59 08/24/18 08:21 Montelukast Sodium (Singulair) 10 mg DAILY ORAL 08/23/18 09:00 09/22/18 08:59 08/24/18 08:18 Pantoprazole (Protonix) 40 mg DAILY ORAL 08/23/18 09:00 09/22/18 08:59 08/24/18 08:18 Salmeterol Xinafoate/ Fluticasone (Advair 250/50 Diskus) 2 puffs EVERY 12 HOURS INH 08/23/18 09:00 09/22/18 08:59 08/24/18 10:06 Rashad Haji MD Aug 24, 2018 12:20
[2018-08-24 13:36] VITALS: BP 108/51
--- NOTE | 2018-08-24 15:12 | General Progress Note ---
Assessment/Plan Problem List: (1) Edema ICD Codes: R60.9 - Edema, unspecified SNOMED: 272276578, 568819616 (2) CHF (congestive heart failure) ICD Codes: I50.9 - Heart failure, unspecified SNOMED: 08535355 (3) Edema ICD Codes: R60.9 - Edema, unspecified SNOMED: 752586975, 883891299 (4) CHF exacerbation ICD Codes: I50.9 - Heart failure, unspecified SNOMED: 71176064 Qualifiers: Qualified Codes: I50.9 - Heart failure, unspecified (5) Pain ICD Codes: R52 - Pain, unspecified SNOMED: 69346355 Status: progressing Status Narrative afebrile edema chf exacerbation somewhat improving cri needs diruesis and fluid management Subjective ROS Limited/Unobtainable: Yes Allergies: Coded Allergies: PENICILLINS (Verified Allergy, Unknown, 08/31/17) TRAMADOL (Verified Allergy, Unknown, 08/31/17) Objective Last 24 Hour Vital Signs Date Time Temp Pulse Resp B/P (MAP) Pulse Ox O2 Delivery O2 Flow Rate FiO2 08/24/18 13:36 98.2 56 20 108/51 (70) 96 08/24/18 11:44 53 08/24/18 11:02 98.2 08/24/18 10:06 89 18 98 Room Air 21 08/24/18 10:06 80 18 98 Room Air 21 08/24/18 08:18 112/59 08/24/18 07:59 58 08/24/18 07:53 63 18 96 Room Air 21 08/24/18 07:52 Nasal Cannula 2.0 08/24/18 07:49 98.2 58 20 112/59 (76) 96 08/24/18 07:42 21 08/24/18 07:42 68 16 99 Nasal Cannula 2.0 28 08/24/18 04:00 60 08/24/18 04:00 98.2 54 20 101/55 (70) 96 08/24/18 01:05 Nasal Cannula 2.0 28 08/24/18 01:05 Nasal Cannula 2.0 28 08/24/18 00:00 98.2 70 20 111/56 (74) 94 08/24/18 00:00 60 08/23/18 21:58 75 18 93 Room Air 21 08/23/18 21:58 75 18 93 Room Air 21 08/23/18 21:00 Room Air 08/23/18 20:00 69 08/23/18 20:00 98.0 67 20 109/40 (63) 98 08/23/18 19:50 92 18 99 Nasal Cannula 2.0 28 08/23/18 19:38 21 08/23/18 19:38 65 16 99 Nasal Cannula 2.0 28 08/23/18 17:18 130/69 08/23/18 16:00 98.9 60 21 130/69 (89) 99 60 08/23/18 16:00 61 Intake and Output 08/23/18 08/24/18 19:00 07:00 Intake Total 560 ml 480 ml Output Total 1400 ml 2900 ml Balance -840 ml -2420 ml Intake Oral 560 ml 480 ml Output Urine Total 1400 ml 2900 ml # Voids 7 Height (Feet): 6 Height (Inches): 3.00 Weight (Pounds): 330 Cardiovascular: normal rate Respiratory/Chest: lungs clear Abdomen: soft Brittney Shepard MD Aug 24, 2018 15:12
--- NOTE | 2018-08-24 15:47 | Cardiac Electrophysiology PN ---
Assessment/Plan Assessment/Plan 1. Severe bilateral lower extremity edema. On Lasix 40 mg IV b.i.d. 2. Hypertension, on Lasix and lisinopril 20 mg b.i.d. 3. COPD, on albuterol and Advair. 4. Hyperlipidemia, on Lipitor. 5. Morbid obesity. Subjective Subjective Diuresing well. Still wheezing Objective Last 24 Hour Vital Signs Date Time Temp Pulse Resp B/P (MAP) Pulse Ox O2 Delivery O2 Flow Rate FiO2 08/24/18 14:29 65 18 96 Room Air 21 08/24/18 14:21 65 16 99 Nasal Cannula 2.0 28 08/24/18 14:21 21 08/24/18 13:36 98.2 56 20 108/51 (70) 96 08/24/18 11:44 53 08/24/18 11:02 98.2 08/24/18 10:06 89 18 98 Room Air 21 08/24/18 10:06 80 18 98 Room Air 21 08/24/18 08:18 112/59 08/24/18 07:59 58 08/24/18 07:53 63 18 96 Room Air 08/24/18 07:52 Nasal Cannula 2.0 08/24/18 07:49 98.2 58 20 112/59 (76) 96 08/24/18 07:42 21 08/24/18 07:42 68 16 99 Nasal Cannula 2.0 28 08/24/18 04:00 60 08/24/18 04:00 98.2 54 20 101/55 (70) 96 08/24/18 01:05 Nasal Cannula 2.0 28 08/24/18 01:05 Nasal Cannula 2.0 28 08/24/18 00:00 98.2 70 20 111/56 (74) 94 08/24/18 00:00 60 08/23/18 21:58 75 18 93 Room Air 21 08/23/18 21:58 75 18 93 Room Air 21 08/23/18 21:00 Room Air 08/23/18 20:00 69 08/23/18 20:00 98.0 67 20 109/40 (63) 98 08/23/18 19:50 92 18 99 Nasal Cannula 2.0 28 08/23/18 19:38 21 08/23/18 19:38 65 16 99 Nasal Cannula 2.0 28 08/23/18 17:18 130/69 08/23/18 16:00 98.9 60 21 130/69 (89) 99 60 08/23/18 16:00 61 Intake and Output 08/23/18 08/24/18 19:00 07:00 Intake Total 560 ml 480 ml Output Total 1400 ml 2900 ml Balance -840 ml -2420 ml Intake Oral 560 ml 480 ml Output Urine Total 1400 ml 2900 ml # Voids 7 Microbiology Date/Time Source Procedure Growth Status 08/22/18 15:38 Blood Blood Culture - Preliminary NO GROWTH AFTER 24 HOURS Resulted 08/22/18 15:20 Blood Blood Culture - Preliminary NO GROWTH AFTER 24 HOURS Resulted Objective HEAD AND NECK: Showed no JVD. LUNGS: Clear. CARDIOVASCULAR: Shows regular S1 and S2 with no gallop or murmur. ABDOMEN: Soft. EXTREMITIES: He has 3+ pitting edema. Prosper Crum MD Aug 24, 2018 15:47
[2018-08-24 16:25] VITALS: BP 105/48
--- NOTE | 2018-08-24 19:12 | NUR ---
HAND-OFF: Report given to MADAN SUAZO.
--- NOTE | 2018-08-24 19:54 | NUR ---
NURSE NOTES: RECEIVED PATIENT RESTING IN BED, NO COMPLAINTS OF PAIN AT THIS TIME. FALL PRECAUTIONS IN PLACE: CALL LIGHT, BEDSIDE TABLE. URINAL AND WALKER WITHIN REACH, BED IN LOW POSITION AND BED ALARM ON. PLAN OF CARE REVIEWED.
[2018-08-24 20:00] VITALS: BP_SYST 100; BP_SYST 110; BP_DIAS 48
[2018-08-25] VITALS: BP 104/56
[2018-08-25] MEDS: Albuterol/Ipratropium 3ml neb HHN SCH ×4 (01:00→19:21)
[2018-08-25] MEDS: HYDROcodone/Acetamin 10/325 tab ORAL PRN ×6 (02:32→22:31)
[2018-08-25 04:00] VITALS: BP 109/61
--- NOTE | 2018-08-25 07:32 | NUR ---
HAND-OFF: Report given to LAKEISHA ALVAREZ. PATIENT EATING BREAKFAST, NO SIGNS OF DISTRESS NOTED.
--- NOTE | 2018-08-25 07:50 | NUR ---
NURSE NOTES: pt in bed in bed in low position, bed alarm on, call light at bedside, HOB in high fowlers, IV site patent and intact, pt eating breakfast, reports pain level of 3, Pt Ox4 calm and cooperative presently watching TV, SCDs on, pt moves around in bed by himself, 2 rails up, no s/s of distress or sob noted.
[2018-08-25 08:00] VITALS: BP 105/43
[2018-08-25] MEDS: Benazepril 10mg tab ORAL SCH ×2 (09:00→17:34)
--- NOTE | 2018-08-25 09:00 | NUR ---
CASE MANAGEMENT:REVIEW 08/25/18 SI: CHF. COPD EXACERBATION. RIB CONTUSION...S/P FALL 97.1 61 22 105/43 95% ON RA IS: IV LASIX Q12 DUONEB HHN Q6HRS RTC ASA PO QD ADVAIR INH Q12 SINGULAR PO QD LOTENSIN PO BID [place] 10/325MG PO Q4HRS PRN TELEMETRY STATUS DCP; FROM HOME PLAN: PAIN MGMT
[2018-08-25] MEDS: Aspirin Baby 81mg ORAL SCH (09:12)
[2018-08-25] MEDS: Montelukast 10mg tablet ORAL SCH (09:12)
[2018-08-25] MEDS: Advair 250/50 Inhaler - 14 dose INH SCH ×2 (10:55→19:21)
[2018-08-25 12:00] VITALS: BP 121/73
--- NOTE | 2018-08-25 13:19 | Pulmonology Progress Note ---
Assessment/Plan Assessment/Plan ASSESSMENT: The patient is a 63-year-old male, lifelong nonsmoker with a history of congestive heart failure with diastolic dysfunction, pulmonary hypertension, obesity, likely obstructive sleep apnea, known pulmonary nodules, anemia and asthma, presenting with shortness of breath likely secondary to decompensated heart failure PROBLEM LIST: 1. Mechanical fall --> R rib pain ---> No Fx per report 2. Asthma without evidence of exacerbation. 3. CHF with diastolic dysfunction, 4. Bilateral lower extremity edema, likely secondary to above. 5. Known scattered bilateral subcentimeter nodules, stable on follow-up - per patient being followed up by PULMONARY @ [facility] 6. Anemia. 7. Hypertension. 8. Obesity. 9. Likely THERON. TREATMENT PLAN: 1. Optimize pulmonary hygiene/mobilize as tolerated. 2. P.r.n. O2 to keep saturations greater than 90%. 3. RTC and PRN HHN's 4. Advair 250/50 5. Observe off antibiotics and steroids 6. Monitor volumes, diuresis per cards 7. F/U cardiology recs 8. Incentive spirometry 9. Pain control/supportive care 10. Continue to follow up with [facility] Pulmonary Clinic per the patient. 11. DVT prophylaxis, heparin subcutaneous. 12. Weight-loss diet and exercise discussed again. Subjective Allergies: Coded Allergies: PENICILLINS (Verified Allergy, Unknown, 08/31/17) TRAMADOL (Verified Allergy, Unknown, 08/31/17) Subjective BEA AFVSS stable on RA Less SOB No CP, No F/C, No wheezing Objective Last 24 Hour Vital Signs Date Time Temp Pulse Resp B/P (MAP) Pulse Ox O2 Delivery O2 Flow Rate FiO2 08/25/18 13:01 62 16 96 Nasal Cannula 3.0 32 08/25/18 12:00 98.1 59 22 121/73 (89) 99 08/25/18 11:38 59 08/25/18 11:16 98.1 08/25/18 10:56 62 18 98 Nasal Cannula 3.0 32 08/25/18 09:58 Nasal Cannula 3.0 32 08/25/18 09:00 105/43 08/25/18 08:20 Nasal Cannula 2.0 Nasal Cannula 2.0 Nasal Cannula 2.0 08/25/18 08:00 97.1 61 22 105/43 (63) 95 08/25/18 07:50 64 18 96 Nasal Cannula 32 08/25/18 07:40 63 08/25/18 07:36 60 18 96 Nasal Cannula 3.0 32 08/25/18 04:00 97.5 57 20 109/61 (77) 100 08/25/18 04:00 53 08/25/18 01:27 Room Air 21 08/25/18 01:27 Room Air 21 08/25/18 00:00 97.0 58 20 104/56 (72) 98 08/25/18 00:00 55 08/24/18 21:09 65 18 95 Room Air 21 08/24/18 21:07 64 18 95 Nasal Cannula 3.0 32 08/24/18 21:00 Nasal Cannula 2.0 Nasal Cannula 2.0 Nasal Cannula 2.0 08/24/18 20:00 97.9 64 20 100/48 (65) 97 08/24/18 20:00 65 08/24/18 19:48 71 18 95 Room Air 21 08/24/18 19:48 21 08/24/18 19:29 64 18 95 Nasal Cannula 2.0 28 08/24/18 17:33 105/48 08/24/18 16:25 97.5 59 20 105/48 (67) 96 08/24/18 15:37 63 08/24/18 14:29 65 18 96 Room Air 21 08/24/18 14:21 65 16 99 Nasal Cannula 2.0 28 08/24/18 14:21 21 08/24/18 13:36 98.2 56 20 108/51 (70) 96 Intake and Output 08/24/18 08/25/18 19:00 07:00 Intake Total 600 ml 240 ml Output Total 2900 ml 2100 ml Balance -2300 ml -1860 ml Intake Oral 600 ml 240 ml Output Urine Total 2900 ml 2100 ml # Voids 3 3 General Appearance: no acute distress, other - obese HEENT: normocephalic, atraumatic, anicteric, mucous membranes moist Respiratory/Chest: chest wall non-tender, lungs clear, normal breath sounds, no respiratory distress, no accessory muscle use Cardiovascular: normal peripheral pulses, normal rate, regular rhythm Abdomen: normal bowel sounds, soft, non tender, no organomegaly, non distended , no mass Extremities: no cyanosis, no clubbing, other - 2+ NELLIE Microbiology Date/Time Source Procedure Growth Status 1/4/19 15:38 Blood Blood Culture - Preliminary NO GROWTH AFTER 48 HOURS Resulted 08/22/18 15:20 Blood Blood Culture - Preliminary NO GROWTH AFTER 48 HOURS Resulted Current Medications Medications (Trade) Dose Ordered Sig/Virgen Route PRN Reason Start Time Stop Time Status Last Admin Dose Admin Acetaminophen/ Hydrocodone Bitart ([place] 10/325) 1 tab Q4H PRN ORAL For Pain 08/22/18 21:45 08/29/18 21:44 08/25/18 10:46 Albuterol/ Ipratropium (Albuterol/ Ipratropium) 3 ml Q4H PRN HHN Shortness of Breath 08/23/18 11:45 08/28/18 11:44 Albuterol/ Ipratropium (Albuterol/ Ipratropium) 3 ml Q6HRT HHN 08/23/18 13:00 08/28/18 12:59 08/25/18 13:01 Aspirin (ASA) 81 mg DAILY ORAL 08/23/18 09:00 09/22/18 08:59 08/25/18 09:12 Atorvastatin Calcium (Lipitor) 10 mg BEDTIME ORAL 08/22/18 22:15 09/21/18 22:14 08/24/18 20:27 Benazepril HCl (Lotensin) 20 mg BID ORAL 08/23/18 09:00 09/22/18 08:59 08/24/18 08:18 Furosemide (Lasix) 40 mg EVERY 12 HOURS IV 08/23/18 21:00 09/22/18 20:59 08/25/18 09:12 Montelukast Sodium (Singulair) 10 mg DAILY ORAL 08/23/18 09:00 09/22/18 08:59 08/25/18 09:12 Pantoprazole (Protonix) 40 mg DAILY ORAL 08/23/18 09:00 09/22/18 08:59 08/25/18 09:12 Salmeterol Xinafoate/ Fluticasone (Advair 250/50 Diskus) 1 puffs BID INH 08/24/18 18:00 09/23/18 17:59 08/25/18 10:55 Rashad Haji MD Aug 25, 2018 13:19
--- NOTE | 2018-08-25 15:13 | Cardiac Electrophysiology PN ---
Assessment/Plan Assessment/Plan 1. Severe bilateral lower extremity edema. On Lasix 40 mg IV b.i.d. 2. Hypertension, on Lasix and lisinopril 20 mg b.i.d. 3. COPD, on albuterol and Advair. 4. Hyperlipidemia, on Lipitor. 5. Morbid obesity. JEANETTE RN Subjective Subjective Diuresing well. In SR with no events Objective Last 24 Hour Vital Signs Date Time Temp Pulse Resp B/P (MAP) Pulse Ox O2 Delivery O2 Flow Rate FiO2 08/25/18 14:58 98.1 08/25/18 13:11 62 18 96 Nasal Cannula 32 08/25/18 13:01 62 16 96 Nasal Cannula 3.0 32 08/25/18 12:00 98.1 59 22 121/73 (89) 99 08/25/18 11:38 59 08/25/18 10:56 62 18 98 Nasal Cannula 3.0 32 08/25/18 09:58 Nasal Cannula 3.0 32 08/25/18 09:00 105/43 08/25/18 08:20 Nasal Cannula 2.0 Nasal Cannula 2.0 Nasal Cannula 2.0 08/25/18 08:00 97.1 61 22 105/43 (63) 95 08/25/18 07:50 64 18 96 Nasal Cannula 32 08/25/18 07:40 63 08/25/18 07:36 60 18 96 Nasal Cannula 3.0 32 08/25/18 04:00 97.5 57 20 109/61 (77) 100 08/25/18 04:00 53 08/25/18 01:27 Room Air 21 08/25/18 01:27 Room Air 21 08/25/18 00:00 97.0 58 20 104/56 (72) 98 08/25/18 00:00 55 08/24/18 21:09 65 18 95 Room Air 21 08/24/18 21:07 64 18 95 Nasal Cannula 3.0 32 08/24/18 21:00 Nasal Cannula 2.0 Nasal Cannula 2.0 Nasal Cannula 2.0 08/24/18 20:00 97.9 64 20 100/48 (65) 97 08/24/18 20:00 65 08/24/18 19:48 71 18 95 Room Air 21 08/24/18 19:48 21 08/24/18 19:29 64 18 95 Nasal Cannula 2.0 28 08/24/18 17:33 105/48 08/24/18 16:25 97.5 59 20 105/48 (67) 96 08/24/18 15:37 63 Intake and Output 08/24/18 08/25/18 19:00 07:00 Intake Total 600 ml 240 ml Output Total 2900 ml 2100 ml Balance -2300 ml -1860 ml Intake Oral 600 ml 240 ml Output Urine Total 2900 ml 2100 ml # Voids 3 3 Microbiology Date/Time Source Procedure Growth Status 08/22/18 15:38 Blood Blood Culture - Preliminary NO GROWTH AFTER 48 HOURS Resulted 08/22/18 15:20 Blood Blood Culture - Preliminary NO GROWTH AFTER 48 HOURS Resulted Objective HEAD AND NECK: Showed no JVD. LUNGS: Clear. CARDIOVASCULAR: Shows regular S1 and S2 with no gallop or murmur. ABDOMEN: Soft. EXTREMITIES: He has 3+ pitting edema. Prosper Crum MD Aug 25, 2018 15:13
[2018-08-25 16:00] VITALS: BP 138/59
--- NOTE | 2018-08-25 19:21 | NUR ---
Manually admin on emar. Advair barcode not working "inhaler was discontinued." Advair inhaler is extended to 09/23/17. Will call pharmacy to change barcode.
--- NOTE | 2018-08-25 19:29 | NUR ---
HAND-OFF: Report given to Monico Etienne.
--- NOTE | 2018-08-25 19:30 | NUR ---
NURSE NOTES: Got report from Honorio SUAZO. Pt in stable condition. No s/s of distress or discomfort. Pt says will notify nurse of any changes. Bed in low and locked position, call light within reach, bedside table within reach.Continue to monitor.
[2018-08-25 20:00] VITALS: BP 116/57
--- NOTE | 2018-08-25 21:25 | General Progress Note ---
Assessment/Plan Problem List: (1) Edema ICD Codes: R60.9 - Edema, unspecified SNOMED: 965978633, 237255194 (2) CHF (congestive heart failure) ICD Codes: I50.9 - Heart failure, unspecified SNOMED: 30557233 (3) Edema ICD Codes: R60.9 - Edema, unspecified SNOMED: 823993156, 973233153 (4) CHF exacerbation ICD Codes: I50.9 - Heart failure, unspecified SNOMED: 76830782 Qualifiers: Qualified Codes: I50.9 - Heart failure, unspecified (5) Pain ICD Codes: R52 - Pain, unspecified SNOMED: 32663335 Status: progressing Assessment/Plan afebrile nac \edema chf vitals stable fluid mangement per cardio and renal cri watch for overdiuresis Subjective ROS Limited/Unobtainable: Yes Allergies: Coded Allergies: PENICILLINS (Verified Allergy, Unknown, 08/31/17) TRAMADOL (Verified Allergy, Unknown, 08/31/17) Objective Last 24 Hour Vital Signs Date Time Temp Pulse Resp B/P (MAP) Pulse Ox O2 Delivery O2 Flow Rate FiO2 08/25/18 19:32 62 18 96 Nasal Cannula 2.0 28 08/25/18 19:21 97 Nasal Cannula 2.0 28 08/25/18 19:21 67 18 97 Room Air 21 08/25/18 19:21 Nasal Cannula 2.0 28 08/25/18 19:12 97.9 08/25/18 17:34 138/59 08/25/18 16:00 97.9 62 20 138/59 (85) 97 08/25/18 15:27 66 08/25/18 13:11 62 18 96 Nasal Cannula 32 08/25/18 13:01 62 16 96 Nasal Cannula 3.0 32 08/25/18 12:00 98.1 59 22 121/73 (89) 99 08/25/18 11:38 59 08/25/18 10:56 62 18 98 Nasal Cannula 3.0 32 08/25/18 09:58 Nasal Cannula 3.0 32 08/25/18 09:00 105/43 08/25/18 08:20 Nasal Cannula 2.0 Nasal Cannula 2.0 Nasal Cannula 2.0 08/25/18 08:00 97.1 61 22 105/43 (63) 95 08/25/18 07:50 64 18 96 Nasal Cannula 32 08/25/18 07:40 63 08/25/18 07:36 60 18 96 Nasal Cannula 3.0 32 08/25/18 04:00 97.5 57 20 109/61 (77) 100 08/25/18 04:00 53 08/25/18 01:27 Room Air 21 08/25/18 01:27 Room Air 21 08/25/18 00:00 97.0 58 20 104/56 (72) 98 08/25/18 00:00 55 Intake and Output 08/24/18 08/25/18 19:00 07:00 Intake Total 600 ml 240 ml Output Total 2900 ml 2100 ml Balance -2300 ml -1860 ml Intake Oral 600 ml 240 ml Output Urine Total 2900 ml 2100 ml # Voids 3 3 Height (Feet): 6 Height (Inches): 3.00 Weight (Pounds): 329 Cardiovascular: normal rate Respiratory/Chest: lungs clear Abdomen: soft Brittney Shepard MD Aug 25, 2018 21:25
[2018-08-26] VITALS: BP 113/56
[2018-08-26] MEDS: Albuterol/Ipratropium 3ml neb HHN SCH ×4 (01:55→20:53)
[2018-08-26] MEDS: HYDROcodone/Acetamin 10/325 tab ORAL PRN ×6 (02:26→23:35)
[2018-08-26 04:00] VITALS: BP 118/56
--- NOTE | 2018-08-26 07:25 | NUR ---
NURSE NOTES: Received report LAKEISHA Adair. Patient is resting in bed, in stable condition. No s/sx of SOB, breathing is even and unlabored. Denies any presence of pain or discomfort at this time. Bed is in lowest position, brakes engaged. Call light is kept within easy reach. Will continue to monitor patient.
--- NOTE | 2018-08-26 07:26 | NUR ---
HAND-OFF: Report given to Binh SUAZO. endorsed plan of care.
[2018-08-26 08:00] VITALS: BP 117/57
[2018-08-26] MEDS: Advair 250/50 Inhaler - 14 dose INH SCH ×2 (08:50→20:50)
[2018-08-26] MEDS: Benazepril 10mg tab ORAL SCH ×2 (09:18→17:59)
[2018-08-26] MEDS: Aspirin Baby 81mg ORAL SCH (09:18)
[2018-08-26] MEDS: Montelukast 10mg tablet ORAL SCH (09:18)
--- NOTE | 2018-08-26 10:49 | Cardiac Electrophysiology PN ---
Assessment/Plan Assessment/Plan 1. Severe bilateral lower extremity edema. On Lasix 40 mg IV b.i.d. 2. Hypertension, on Lasix and lisinopril 20 mg b.i.d.and prn clonidine 3. COPD, on albuterol and Advair. 4. Hyperlipidemia, on Lipitor. 5. Morbid obesity. JEANETTE RN Subjective Subjective Diuresing well. In SR with no events. No CP Objective Last 24 Hour Vital Signs Date Time Temp Pulse Resp B/P (MAP) Pulse Ox O2 Delivery O2 Flow Rate FiO2 08/26/18 09:18 117/57 08/26/18 09:00 Nasal Cannula 2.0 Nasal Cannula 2.0 Nasal Cannula 2.0 08/26/18 08:53 58 18 97 Nasal Cannula 2.0 28 08/26/18 08:51 58 18 97 Nasal Cannula 2.0 28 08/26/18 08:00 55 08/26/18 08:00 97.2 72 19 117/57 (77) 99 08/26/18 07:45 95 Nasal Cannula 2.0 28 08/26/18 07:45 Nasal Cannula 2.0 28 08/26/18 07:45 56 18 95 Nasal Cannula 2.0 28 08/26/18 07:45 56 18 95 Nasal Cannula 28 08/26/18 04:34 55 08/26/18 04:00 97.9 56 19 118/56 (76) 99 08/26/18 02:57 98.3 08/26/18 02:06 62 18 98 Nasal Cannula 2.0 28 08/26/18 01:55 59 18 94 Room Air 21 08/26/18 00:40 60 08/26/18 00:00 98.3 54 18 113/56 (75) 95 08/25/18 21:00 Nasal Cannula 2.0 Nasal Cannula 2.0 Nasal Cannula 2.0 08/25/18 20:00 72 08/25/18 20:00 98.1 69 20 116/57 (76) 98 08/25/18 19:32 62 18 96 Nasal Cannula 2.0 28 08/25/18 19:21 67 18 97 Room Air 21 08/25/18 19:21 67 18 97 Room Air 21 08/25/18 19:21 97 Nasal Cannula 2.0 28 08/25/18 19:21 67 18 97 Room Air 21 08/25/18 19:21 Nasal Cannula 2.0 28 08/25/18 17:34 138/59 08/25/18 16:00 97.9 62 20 138/59 (85) 97 08/25/18 15:27 66 08/25/18 13:11 62 18 96 Nasal Cannula 32 08/25/18 13:01 62 16 96 Nasal Cannula 3.0 32 08/25/18 12:00 98.1 59 22 121/73 (89) 99 08/25/18 11:38 59 08/25/18 10:56 62 18 98 Nasal Cannula 3.0 32 Intake and Output 08/25/18 08/26/18 18:59 06:59 Intake Total 940 ml 720 ml Output Total 2600 ml 2950 ml Balance -1660 ml -2230 ml Intake Oral 940 ml 720 ml Output Urine Total 2600 ml 2950 ml # Voids 8 4 Objective HEAD AND NECK: No JVD. LUNGS: Clear. CARDIOVASCULAR: Regular S1 and S2 with no gallop or murmur. ABDOMEN: Soft. EXTREMITIES: He has 3+ pitting edema. Prosper Crum MD Aug 26, 2018 10:49
[2018-08-26 12:00] VITALS: BP 129/69
--- NOTE | 2018-08-26 15:53 | Pulmonology Progress Note ---
Assessment/Plan Assessment/Plan ASSESSMENT: The patient is a 63-year-old male, lifelong nonsmoker with a history of congestive heart failure with diastolic dysfunction, pulmonary hypertension, obesity, likely obstructive sleep apnea, known pulmonary nodules, anemia and asthma, presenting with shortness of breath likely secondary to decompensated heart failure PROBLEM LIST: 1. Mechanical fall --> R rib pain ---> No Fx per report 2. Asthma without evidence of exacerbation. 3. CHF with diastolic dysfunction, 4. Bilateral lower extremity edema, likely secondary to above. 5. Known scattered bilateral subcentimeter nodules, stable on follow-up - per patient being followed up by PULMONARY @ [facility] 6. Anemia. 7. Hypertension. 8. Obesity. 9. Likely THERON. TREATMENT PLAN: 1. Optimize pulmonary hygiene/mobilize as tolerated. 2. P.r.n. O2 to keep saturations greater than 90%. 3. RTC and PRN HHN's 4. Advair 250/50 5. Observe off antibiotics and steroids 6. Monitor volumes, diuresis per cards 7. F/U cardiology recs 8. Incentive spirometry 9. Pain control/supportive care 10. Continue to follow up with [facility] Pulmonary Clinic per the patient. 11. DVT prophylaxis, heparin subcutaneous. 12. Weight-loss diet and exercise discussed again. Subjective Allergies: Coded Allergies: PENICILLINS (Verified Allergy, Unknown, 08/31/17) TRAMADOL (Verified Allergy, Unknown, 08/31/17) Subjective BEA AFVSS stable on RA Diuresing Less SOB No CP, No F/C, No wheezing Objective Last 24 Hour Vital Signs Date Time Temp Pulse Resp B/P (MAP) Pulse Ox O2 Delivery O2 Flow Rate FiO2 08/26/18 13:45 56 18 95 Nasal Cannula 2.0 28 08/26/18 13:32 61 18 96 Nasal Cannula 2.0 28 08/26/18 12:00 97.0 56 19 129/69 (89) 99 08/26/18 12:00 58 08/26/18 09:18 117/57 08/26/18 09:00 Nasal Cannula 2.0 Nasal Cannula 2.0 Nasal Cannula 2.0 08/26/18 08:53 58 18 97 Nasal Cannula 2.0 28 08/26/18 08:51 58 18 97 Nasal Cannula 2.0 28 08/26/18 08:00 55 08/26/18 08:00 97.2 72 19 117/57 (77) 99 08/26/18 07:45 95 Nasal Cannula 2.0 28 08/26/18 07:45 Nasal Cannula 2.0 28 08/26/18 07:45 56 18 95 Nasal Cannula 2.0 28 08/26/18 07:45 56 18 95 Nasal Cannula 28 08/26/18 04:34 55 08/26/18 04:00 97.9 56 19 118/56 (76) 99 08/26/18 02:57 98.3 08/26/18 02:06 62 18 98 Nasal Cannula 2.0 28 08/26/18 01:55 59 18 94 Room Air 21 08/26/18 00:40 60 08/26/18 00:00 98.3 54 18 113/56 (75) 95 08/25/18 21:00 Nasal Cannula 2.0 Nasal Cannula 2.0 Nasal Cannula 2.0 08/25/18 20:00 72 08/25/18 20:00 98.1 69 20 116/57 (76) 98 08/25/18 19:32 62 18 96 Nasal Cannula 2.0 28 08/25/18 19:21 67 18 97 Room Air 21 08/25/18 19:21 67 18 97 Room Air 21 08/25/18 19:21 97 Nasal Cannula 2.0 28 08/25/18 19:21 67 18 97 Room Air 21 08/25/18 19:21 Nasal Cannula 2.0 28 08/25/18 17:34 138/59 08/25/18 16:00 97.9 62 20 138/59 (85) 97 Intake and Output 08/25/18 08/26/18 19:00 07:00 Intake Total 940 ml 720 ml Output Total 2600 ml 2950 ml Balance -1660 ml -2230 ml Intake Oral 940 ml 720 ml Output Urine Total 2600 ml 2950 ml # Voids 8 4 General Appearance: no acute distress, other - obese male HEENT: normocephalic, atraumatic, anicteric, mucous membranes moist, other - MP 4 Respiratory/Chest: chest wall non-tender, lungs clear, normal breath sounds - but decrease @ bases, no respiratory distress, no accessory muscle use Cardiovascular: normal peripheral pulses, normal rate, regular rhythm Abdomen: normal bowel sounds, soft, non tender, no organomegaly, non distended , no mass Extremities: no cyanosis, no clubbing, other - 1+ NELLIE Current Medications Medications (Trade) Dose Ordered Sig/Virgen Route PRN Reason Start Time Stop Time Status Last Admin Dose Admin Acetaminophen/ Hydrocodone Bitart ([place]ene 10/325) 1 tab Q4H PRN ORAL For Pain 08/22/18 21:45 08/29/18 21:44 08/26/18 15:14 Albuterol/ Ipratropium (Albuterol/ Ipratropium) 3 ml Q4H PRN HHN Shortness of Breath 08/23/18 11:45 08/28/18 11:44 Albuterol/ Ipratropium (Albuterol/ Ipratropium) 3 ml Q6HRT HHN 08/23/18 13:00 08/28/18 12:59 08/26/18 13:32 Aspirin (ASA) 81 mg DAILY ORAL 08/23/18 09:00 09/22/18 08:59 08/26/18 09:18 Atorvastatin Calcium (Lipitor) 10 mg BEDTIME ORAL 08/22/18 22:15 09/21/18 22:14 08/25/18 21:08 Benazepril HCl (Lotensin) 20 mg BID ORAL 08/23/18 09:00 09/22/18 08:59 08/26/18 09:18 Furosemide (Lasix) 40 mg EVERY 12 HOURS IV 08/23/18 21:00 09/22/18 20:59 08/26/18 09:18 Montelukast Sodium (Singulair) 10 mg DAILY ORAL 08/23/18 09:00 09/22/18 08:59 08/26/18 09:18 Pantoprazole (Protonix) 40 mg DAILY ORAL 08/23/18 09:00 09/22/18 08:59 08/26/18 09:18 Salmeterol Xinafoate/ Fluticasone (Advair 250/50 Diskus) 1 puffs BID INH 08/24/18 18:00 09/23/18 17:59 08/26/18 08:50 Rashad Haji MD Aug 26, 2018 15:53
[2018-08-26 16:00] VITALS: BP 106/53
--- NOTE | 2018-08-26 19:25 | NUR ---
HAND-OFF: Report given to LAKEISHA Tohmas.
--- NOTE | 2018-08-26 19:37 | NUR ---
NURSE NOTES: Report received from LAKEISHA Purcell. Pt is lying comfortably in semi-fowlers. A+Ox4, denies pain and SOB. Pt shows no signs of distress. IV site is patent, intact, and saline locked. Respirations are even and unlabored on room air. Bed is at lowest position, brakes engaged, siderails x2, bed alarm on, and call light within reach. Pt is in stable condition at this time; will continue to monitor.
[2018-08-26 20:00] VITALS: BP 122/73
--- NOTE | 2018-08-26 21:23 | General Progress Note ---
Assessment/Plan Problem List: (1) Edema ICD Codes: R60.9 - Edema, unspecified SNOMED: 161949701, 596550316 (2) CHF (congestive heart failure) ICD Codes: I50.9 - Heart failure, unspecified SNOMED: 79430551 (3) Edema ICD Codes: R60.9 - Edema, unspecified SNOMED: 752048274, 471277512 (4) CHF exacerbation ICD Codes: I50.9 - Heart failure, unspecified SNOMED: 48804316 Qualifiers: Qualified Codes: I50.9 - Heart failure, unspecified (5) Pain ICD Codes: R52 - Pain, unspecified SNOMED: 12104198 Status: progressing Status Narrative leg edema chf exacerbation flank pain atypical chest pain needs more fluid removal Assessment/Plan afebrile nac \edema chf vitals stable fluid mangement per cardio and renal cri watch for overdiuresis Subjective Allergies: Coded Allergies: PENICILLINS (Verified Allergy, Unknown, 08/31/17) TRAMADOL (Verified Allergy, Unknown, 08/31/17) Subjective le pain Objective Last 24 Hour Vital Signs Date Time Temp Pulse Resp B/P (MAP) Pulse Ox O2 Delivery O2 Flow Rate FiO2 08/26/18 21:02 67 18 96 Nasal Cannula 2.0 28 08/26/18 20:52 Nasal Cannula 2.0 28 08/26/18 20:52 68 18 98 Nasal Cannula 2.0 28 08/26/18 20:52 98 Nasal Cannula 2.0 28 08/26/18 20:52 68 18 98 Room Air 21 08/26/18 20:52 68 18 98 Nasal Cannula 2.0 28 08/26/18 20:52 68 18 98 Room Air 21 08/26/18 20:00 98.4 67 22 122/73 (89) 100 08/26/18 17:59 106/53 08/26/18 16:00 62 08/26/18 16:00 97.0 62 19 106/53 (70) 100 08/26/18 13:45 56 18 95 Nasal Cannula 2.0 28 08/26/18 13:32 61 18 96 Nasal Cannula 2.0 28 08/26/18 12:00 97.0 56 19 129/69 (89) 99 08/26/18 12:00 58 08/26/18 09:18 117/57 08/26/18 09:00 Nasal Cannula 2.0 Nasal Cannula 2.0 Nasal Cannula 2.0 08/26/18 08:53 58 18 97 Nasal Cannula 2.0 28 08/26/18 08:51 58 18 97 Nasal Cannula 2.0 28 08/26/18 08:00 55 08/26/18 08:00 97.2 72 19 117/57 (77) 99 08/26/18 07:45 95 Nasal Cannula 2.0 28 08/26/18 07:45 Nasal Cannula 2.0 28 08/26/18 07:45 56 18 95 Nasal Cannula 2.0 28 08/26/18 07:45 56 18 95 Nasal Cannula 28 08/26/18 04:34 55 08/26/18 04:00 97.9 56 19 118/56 (76) 99 08/26/18 02:57 98.3 08/26/18 02:06 62 18 98 Nasal Cannula 2.0 28 08/26/18 01:55 59 18 94 Room Air 21 08/26/18 00:40 60 08/26/18 00:00 98.3 54 18 113/56 (75) 95 Intake and Output 08/25/18 08/26/18 19:00 07:00 Intake Total 940 ml 720 ml Output Total 2600 ml 2950 ml Balance -1660 ml -2230 ml Intake Oral 940 ml 720 ml Output Urine Total 2600 ml 2950 ml # Voids 8 4 Height (Feet): 6 Height (Inches): 3.00 Weight (Pounds): 329 Respiratory/Chest: lungs clear Abdomen: soft Brittney Shepard MD Aug 26, 2018 21:23
[2018-08-27] VITALS: BP 106/74
[2018-08-27] MEDS: Albuterol/Ipratropium 3ml neb HHN SCH ×3 (01:00→13:16)
[2018-08-27 04:00] VITALS: BP 137/72
[2018-08-27] MEDS: HYDROcodone/Acetamin 10/325 tab ORAL PRN ×3 (04:13→12:58)
[2018-08-27] MEDS ORDERED: Sennosides 8.6mg tab ORAL PRN (06:30)
[2018-08-27] MEDS ORDERED: Bisacodyl EC 5mg tab ORAL PRN (06:30)
[2018-08-27] MEDS ORDERED: Milk of Magnesia 30ml Ud ORAL PRN (06:30)
--- NOTE | 2018-08-27 06:34 | NUR ---
NURSE NOTES: Pt has not had bowel movement in [address] Shepard for orders; will carry out orders.
--- NOTE | 2018-08-27 07:04 | Consultation ---
History of Present Illness General Date patient seen: Aug 27, 2018 Chief Complaint: Edema Present Illness Allergies: Coded Allergies: PENICILLINS (Verified Allergy, Unknown, 08/31/17) TRAMADOL (Verified Allergy, Unknown, 08/31/17) Medication History Scheduled Aspirin* (Aspirin*), 81 MG ORAL DAILY, (Reported) Benazepril Hcl* (Benazepril Hcl*), 10 MG ORAL BID, (Reported) Divalproex Sodium* (Depakote Er*), 750 MG ORAL BEDTIME, (Reported) Fluticasone/Salmeterol (Advair 250-50 Diskus), 1 PUFF INH EVERY 12 HOURS, ( Reported) Fluticasone/Salmeterol (Advair 250-50 Diskus), 1 PUFF INH EVERY 12 HOURS, ( Reported) Furosemide* (Lasix*), 40 MG ORAL DAILY, (Reported) Furosemide* (Lasix*), 10 MG ORAL TWICE A DAY, (Reported) Montelukast Sodium* (Singulair*), 10 MG ORAL DAILY, (Reported) Pantoprazole (Pantoprazole), 40 MG ORAL DAILY, (Reported) Prednisolone* (Prelone*), 40 MG ORAL DAILY, (Reported) Simvastatin (Zocor), 20 MG ORAL BEDTIME, (Reported) Simvastatin (Zocor), 20 MG ORAL BEDTIME, (Reported) Scheduled PRN Albuterol Sulfate* (Albuterol Sulfate Hhn*), 3 ML INH Q6H PRN for Shortness of Breath, (Reported) Hydrocodone Bit/Acetaminophen 10-325* ([place] 10-325*), 1 TAB ORAL Q4H PRN for For Pain, (Reported) Hydrocodone Bit/Acetaminophen 10-325* ([place] 10-325*), 1 TAB ORAL Q4H PRN for For Pain, (Reported) Miscellaneous Medications Ferrous Sulfate (Iron), Unknown Dose PO, (Reported) Patient History Healthcare decision maker Resuscitation status Full Code Advanced Directive on File No Physical Exam Last 24 Hour Vital Signs Date Time Temp Pulse Resp B/P (MAP) Pulse Ox O2 Delivery O2 Flow Rate FiO2 08/27/18 04:00 55 08/27/18 04:00 98.0 64 20 137/72 (93) 97 08/27/18 02:02 Nasal Cannula 2.0 28 08/27/18 02:01 Nasal Cannula 2.0 28 08/27/18 00:00 98.6 65 24 106/74 (85) 100 08/27/18 00:00 61 08/26/18 21:02 67 18 96 Nasal Cannula 2.0 28 08/26/18 21:00 Nasal Cannula 2.0 Nasal Cannula 2.0 Nasal Cannula 2.0 08/26/18 20:52 Nasal Cannula 2.0 28 08/26/18 20:52 68 18 98 Nasal Cannula 2.0 28 08/26/18 20:52 98 Nasal Cannula 2.0 28 08/26/18 20:52 68 18 98 Room Air 21 08/26/18 20:52 68 18 98 Nasal Cannula 2.0 28 08/26/18 20:52 68 18 98 Room Air 21 08/26/18 20:00 75 08/26/18 20:00 98.4 67 22 122/73 (89) 100 08/26/18 17:59 106/53 08/26/18 16:00 62 08/26/18 16:00 97.0 62 19 106/53 (70) 100 08/26/18 13:45 56 18 95 Nasal Cannula 2.0 28 08/26/18 13:32 61 18 96 Nasal Cannula 2.0 28 08/26/18 12:00 97.0 56 19 129/69 (89) 99 08/26/18 12:00 58 08/26/18 09:18 117/57 08/26/18 09:00 Nasal Cannula 2.0 Nasal Cannula 2.0 Nasal Cannula 2.0 08/26/18 08:53 58 18 97 Nasal Cannula 2.0 28 08/26/18 08:51 58 18 97 Nasal Cannula 2.0 28 08/26/18 08:00 55 08/26/18 08:00 97.2 72 19 117/57 (77) 99 08/26/18 07:45 95 Nasal Cannula 2.0 28 08/26/18 07:45 Nasal Cannula 2.0 28 08/26/18 07:45 56 18 95 Nasal Cannula 2.0 28 08/26/18 07:45 56 18 95 Nasal Cannula 28 Intake and Output 08/26/18 08/27/18 19:00 07:00 Intake Total 940 ml Output Total 2450 ml 2000 ml Balance -1510 ml -2000 ml Intake Oral 940 ml Output Urine Total 2450 ml 2000 ml Height (Feet): 6 Height (Inches): 3.00 Weight (Pounds): 329 Medications Current Medications Medications (Trade) Dose Ordered Sig/Virgen Route PRN Reason Start Time Stop Time Status Last Admin Dose Admin Acetaminophen/ Hydrocodone Bitart ([place] 10/325) 1 tab Q4H PRN ORAL For Pain 08/22/18 21:45 08/29/18 21:44 08/27/18 04:13 Albuterol/ Ipratropium (Albuterol/ Ipratropium) 3 ml Q4H PRN HHN Shortness of Breath 08/23/18 11:45 08/28/18 11:44 Albuterol/ Ipratropium (Albuterol/ Ipratropium) 3 ml Q6HRT HHN 08/23/18 13:00 08/28/18 12:59 08/26/18 20:53 Aspirin (ASA) 81 mg DAILY ORAL 08/23/18 09:00 09/22/18 08:59 08/26/18 09:18 Atorvastatin Calcium (Lipitor) 10 mg BEDTIME ORAL 08/22/18 22:15 09/21/18 22:14 08/26/18 21:14 Benazepril HCl (Lotensin) 20 mg BID ORAL 08/23/18 09:00 09/22/18 08:59 08/26/18 09:18 Bisacodyl (Dulcolax) 10 mg DAILYPRN PRN ORAL Constipation 08/27/18 06:30 09/26/18 06:29 Docusate Sodium (Colace) 100 mg TWICE A DAY ORAL 08/27/18 09:00 09/26/18 08:59 Furosemide (Lasix) 40 mg EVERY 12 HOURS IV 08/23/18 21:00 09/22/18 20:59 08/26/18 21:14 Magnesium Hydroxide (Mom) 30 ml Q4H PRN ORAL Constipation 08/27/18 06:30 09/26/18 06:29 Montelukast Sodium (Singulair) 10 mg DAILY ORAL 08/23/18 09:00 09/22/18 08:59 08/26/18 09:18 Pantoprazole (Protonix) 40 mg DAILY ORAL 08/23/18 09:00 09/22/18 08:59 08/26/18 09:18 Salmeterol Xinafoate/ Fluticasone (Advair 250/50 Diskus) 1 puffs BID INH 08/24/18 18:00 09/23/18 17:59 08/26/18 20:50 Sennosides (Senokot) 8.6 mg DAILY PRN ORAL Constipation 08/27/18 06:30 09/26/18 06:29 Assessment/Plan Status Narrative Hematology Consult REQ MD: Ion Shepard RFC: Anemia DOS: 08/27/18 ID 63-year-old M presents ED for evaluation. Complaining of right-sided rib pain, shortness of breath, bilateral leg swelling. States he fell yesterday at home. Denies hitting his head or LOC. Complaining of pain to the right side of ribs. 8 out of 10, sharp, nonradiating. Also complaining of shortness of breath. History of asthma. History of CHF. States he was placed on 10 mg of Lasix which she states is not helping. Associated leg swelling. Denies pain. Denies fevers or chills. No other aggravating relieving factors. Denies any other associated symptoms. Seen by [facility], started on iv lasix, continues to have anemia Allergies: Coded Allergies: PENICILLINS (Verified Allergy, Unknown, 08/31/17) TRAMADOL (Verified Allergy, Unknown, 08/31/17) Patient History Past Medical History: HTN, asthma, COPD Past Surgical History: none Pertinent Family History: none Social History: Denies: smoking, alcohol use, drug use Immunizations: UTD Reviewed Nursing Documentation: PMH: Agreed; PSxH: Agreed Nursing Documentation-PMH Hx Cardiac Problems: Yes - CHF Hx Hypertension: Yes Hx Asthma: Yes Hx COPD: Yes Hx Cancer: No Hx Gastrointestinal Problems: No Hx Neurological Problems: No ER ROS - General Review of Systems All Other Systems: negative except mentioned in HPI ER Physical Exam - General Physical Exam Last 24 Hour Vital Signs Date Time Temp Pulse Resp B/P (MAP) Pulse Ox O2 Delivery O2 Flow Rate FiO2 08/27/18 04:00 55 08/27/18 04:00 98.0 64 20 137/72 (93) 97 08/27/18 02:02 Nasal Cannula 2.0 28 08/27/18 02:01 Nasal Cannula 2.0 28 08/27/18 00:00 98.6 65 24 106/74 (85) 100 08/27/18 00:00 61 08/26/18 21:02 67 18 96 Nasal Cannula 2.0 28 08/26/18 21:00 Nasal Cannula 2.0 Nasal Cannula 2.0 Nasal Cannula 2.0 08/26/18 20:52 Nasal Cannula 2.0 28 08/26/18 20:52 68 18 98 Nasal Cannula 2.0 28 08/26/18 20:52 98 Nasal Cannula 2.0 28 08/26/18 20:52 68 18 98 Room Air 21 08/26/18 20:52 68 18 98 Nasal Cannula 2.0 28 08/26/18 20:52 68 18 98 Room Air 21 08/26/18 20:00 75 08/26/18 20:00 98.4 67 22 122/73 (89) 100 08/26/18 17:59 106/53 08/26/18 16:00 62 08/26/18 16:00 97.0 62 19 106/53 (70) 100 08/26/18 13:45 56 18 95 Nasal Cannula 2.0 28 08/26/18 13:32 61 18 96 Nasal Cannula 2.0 28 08/26/18 12:00 97.0 56 19 129/69 (89) 99 08/26/18 12:00 58 08/26/18 09:18 117/57 08/26/18 09:00 Nasal Cannula 2.0 Nasal Cannula 2.0 Nasal Cannula 2.0 08/26/18 08:53 58 18 97 Nasal Cannula 2.0 28 08/26/18 08:51 58 18 97 Nasal Cannula 2.0 28 08/26/18 08:00 55 08/26/18 08:00 97.2 72 19 117/57 (77) 99 08/26/18 07:45 95 Nasal Cannula 2.0 28 08/26/18 07:45 Nasal Cannula 2.0 28 08/26/18 07:45 56 18 95 Nasal Cannula 2.0 28 08/26/18 07:45 56 18 95 Nasal Cannula 28 General: nad Eyes: bilateral eye PERRL Pulm: speaking full sentences, wheezing, other - R sided rib pain Cardiovascular: regular rate, rhythm, no edema Gastrointestinal: normal bowel sounds, non tender, s Genitourinary: normal inspection, no CVA tenderness Musculoskeletal: back normal, gait/station normal Neurologic: alert, oriented x3, responsive Psychiatric: judgement/insight normal, memory normal, mood/affect normal, no suicidal/homicidal ideation Skin: normal color, no rash Lymphatic: no adenopathy Labs: have been reviewed #. Anemia due to underlying iron deficiency. The patient on prior admission given IV iron. --> ferritin is reviewed and is 82, TIBC is approx 200, likely iron depleted --> cont to monitor and trend cbc --> Hgb goal >7, transfuse prn. --> Cont po iron daily --> no e/o hemolysis noted #. Anemia due to hemodilution with chf overload --> as per cardiology, diuresis as required --> seen by Dr. Crum, on lasix iv #. Borderline mediastinal lymphadenopathy, nonspecific etiology. Multiple small right lung nodules. --> Repeat CT scan in 6 to 12 months. --> f/u with [facility] #. Leukopenia in the past. Hepatitis and HIV is negative. --> Ultrasound showed no acute findings. --> Medications have been reviewed. --> Cont to monitor for improvement. --> given neupogen if anc <1000 #. Congestive heart failure exacerbation versus asthma. as per Dr. Crum. --> cards and pulm recs reviewed --> diuresis as per goal #. Chronic venous stasis lower extremities. #. Chronic obstructive pulmonary disease exacerbation. initially with shortness of breath. --> Given steroids and Lasix. #. Psych disorder as per Dr. Norman (seen before) #. DVT prophylaxis with heparin. Appreciate consultation greatly! Kade Fermin MD Aug 27, 2018 07:04
--- NOTE | 2018-08-27 07:16 | NUR ---
HAND-OFF: Report given to LAKEISHA Dwyer. Pt is in stable condition; plan of care endorsed.
--- NOTE | 2018-08-27 07:20 | NUR ---
NURSE NOTES: Received patient in bed eating breakfast from Ion Thomas [employer] Camp[employer], able to make needs known, pt stated that he has pain on left side 02/25. N s/s of SOB. IV is intact and patent. Bed is on lowest level, brakes engaged for safety. Call light within easy reach. Will continue with the plan of care.
[2018-08-27 08:00] VITALS: BP 129/62
[2018-08-27] MEDS: Benazepril 10mg tab ORAL SCH (08:23)
[2018-08-27] MEDS: Aspirin Baby 81mg ORAL SCH (08:25)
[2018-08-27] MEDS: Montelukast 10mg tablet ORAL SCH (08:25)
[2018-08-27] MEDS ORDERED: Docusate 100mg cap ORAL SCH (09:00)
[2018-08-27] MEDS: Advair 250/50 Inhaler - 14 dose INH SCH (10:59)
[2018-08-27 12:00] VITALS: BP 133/64
--- NOTE | 2018-08-27 13:32 | Pulmonology Progress Note ---
Assessment/Plan Assessment/Plan ASSESSMENT: The patient is a 63-year-old male, lifelong nonsmoker with a history of congestive heart failure with diastolic dysfunction, pulmonary hypertension, obesity, likely obstructive sleep apnea, known pulmonary nodules, anemia and asthma, presenting with shortness of breath likely secondary to decompensated heart failure PROBLEM LIST: 1. Mechanical fall --> R rib pain ---> No Fx per report 2. Asthma without evidence of exacerbation. 3. CHF with diastolic dysfunction, 4. Bilateral lower extremity edema, likely secondary to above. 5. Known scattered bilateral subcentimeter nodules, stable on follow-up - per patient being followed up by PULMONARY @ [facility] 6. Anemia. 7. Hypertension. 8. Obesity. 9. Likely THERON. TREATMENT PLAN: 1. Optimize pulmonary hygiene/mobilize as tolerated. 2. P.r.n. O2 to keep saturations greater than 90%. 3. RTC and PRN HHN's 4. Advair 250/50 5. Observe off antibiotics and steroids 6. Monitor volumes, diuresis per cards 7. F/U cardiology recs 8. Incentive spirometry 9. Pain control/supportive care 10. Continue to follow up with [facility] Pulmonary Clinic per the patient. 11. DVT prophylaxis, heparin subcutaneous. 12. Weight-loss diet and exercise discussed again. Subjective Allergies: Coded Allergies: PENICILLINS (Verified Allergy, Unknown, 08/31/17) TRAMADOL (Verified Allergy, Unknown, 08/31/17) Subjective BEA AFVSS stable on RA Diuresing Less SOB No CP, No F/C, No wheezing Objective Last 24 Hour Vital Signs Date Time Temp Pulse Resp B/P (MAP) Pulse Ox O2 Delivery O2 Flow Rate FiO2 08/27/18 13:16 82 20 96 Nasal Cannula 2.0 28 08/27/18 13:10 89 22 96 Nasal Cannula 2.0 28 08/27/18 12:00 58 08/27/18 12:00 98.0 62 20 133/64 (87) 97 08/27/18 09:21 64 22 98 Room Air 21 08/27/18 09:21 62 16 97 Room Air 21 08/27/18 09:00 Nasal Cannula 2.0 Nasal Cannula 2.0 Nasal Cannula 2.0 08/27/18 08:23 142/65 08/27/18 08:00 98.2 66 20 129/62 (84) 98 08/27/18 08:00 66 08/27/18 07:43 69 18 97 Nasal Cannula 2.0 28 08/27/18 07:32 74 20 97 Nasal Cannula 2.0 28 08/27/18 07:12 Nasal Cannula 2.0 28 08/27/18 07:12 97 Nasal Cannula 2.0 28 08/27/18 04:00 55 08/27/18 04:00 98.0 64 20 137/72 (93) 97 08/27/18 02:02 Nasal Cannula 2.0 28 08/27/18 02:01 Nasal Cannula 2.0 28 08/27/18 00:00 98.6 65 24 106/74 (85) 100 08/27/18 00:00 61 08/26/18 21:02 67 18 96 Nasal Cannula 2.0 28 08/26/18 21:00 Nasal Cannula 2.0 Nasal Cannula 2.0 Nasal Cannula 2.0 08/26/18 20:52 Nasal Cannula 2.0 28 08/26/18 20:52 68 18 98 Nasal Cannula 2.0 28 08/26/18 20:52 98 Nasal Cannula 2.0 28 08/26/18 20:52 68 18 98 Room Air 21 08/26/18 20:52 68 18 98 Nasal Cannula 2.0 28 08/26/18 20:52 68 18 98 Room Air 21 08/26/18 20:00 75 08/26/18 20:00 98.4 67 22 122/73 (89) 100 08/26/18 17:59 106/53 08/26/18 16:00 62 08/26/18 16:00 97.0 62 19 106/53 (70) 100 08/26/18 13:45 56 18 95 Nasal Cannula 2.0 28 Intake and Output 08/26/18 08/27/18 18:59 06:59 Intake Total 940 ml Output Total 2450 ml 2000 ml Balance -1510 ml -2000 ml Intake Oral 940 ml Output Urine Total 2450 ml 2000 ml General Appearance: no acute distress, other - obese HEENT: normocephalic, atraumatic, anicteric, mucous membranes moist Respiratory/Chest: chest wall non-tender, lungs clear, normal breath sounds, no respiratory distress, no accessory muscle use Cardiovascular: normal peripheral pulses, normal rate, regular rhythm Abdomen: normal bowel sounds, soft, non tender, no organomegaly, non distended Extremities: no cyanosis, no clubbing, no edema Current Medications Medications (Trade) Dose Ordered Sig/Vrigen Route PRN Reason Start Time Stop Time Status Last Admin Dose Admin Acetaminophen/ Hydrocodone Bitart ([place] 10/325) 1 tab Q4H PRN ORAL For Pain 08/22/18 21:45 08/29/18 21:44 08/27/18 12:58 Albuterol/ Ipratropium (Albuterol/ Ipratropium) 3 ml Q4H PRN HHN Shortness of Breath 08/23/18 11:45 08/28/18 11:44 Albuterol/ Ipratropium (Albuterol/ Ipratropium) 3 ml Q6HRT HHN 08/23/18 13:00 08/28/18 12:59 08/27/18 13:16 Aspirin (ASA) 81 mg DAILY ORAL 08/23/18 09:00 09/22/18 08:59 08/27/18 08:25 Atorvastatin Calcium (Lipitor) 10 mg BEDTIME ORAL 08/22/18 22:15 09/21/18 22:14 08/26/18 21:14 Benazepril HCl (Lotensin) 20 mg BID ORAL 08/23/18 09:00 09/22/18 08:59 08/27/18 08:23 Bisacodyl (Dulcolax) 10 mg DAILYPRN PRN ORAL Constipation 08/27/18 06:30 09/26/18 06:29 Docusate Sodium (Colace) 100 mg TWICE A DAY ORAL 08/27/18 09:00 09/26/18 08:59 08/27/18 08:24 Furosemide (Lasix) 40 mg EVERY 12 HOURS IV 08/23/18 21:00 09/22/18 20:59 08/27/18 08:26 Magnesium Hydroxide (Mom) 30 ml Q4H PRN ORAL Constipation 08/27/18 06:30 09/26/18 06:29 Montelukast Sodium (Singulair) 10 mg DAILY ORAL 08/23/18 09:00 09/22/18 08:59 08/27/18 08:25 Pantoprazole (Protonix) 40 mg DAILY ORAL 08/23/18 09:00 09/22/18 08:59 08/27/18 08:25 Salmeterol Xinafoate/ Fluticasone (Advair 250/50 Diskus) 1 puffs BID INH 08/24/18 18:00 09/23/18 17:59 08/27/18 10:59 Sennosides (Senokot) 8.6 mg DAILY PRN ORAL Constipation 08/27/18 06:30 09/26/18 06:29 Rashad Haji MD Aug 27, 2018 13:32
--- NOTE | 2018-08-27 14:00 | NUR ---
NURSE NOTES: Patient is discharged home per Dr Shepard order on 08/27/18 at 1355. Patient decline to notify anyone at discharge. Patient's medication received from pharmacy and given to patient. All inventories accounted for, signed by patient and with patient at discharge. contracting support specialist, case management, and nursing steno pool supervisor are aware of patient's discharge. Taxi voucher provided and patient was discharged via taxi. IV taken out, no infiltration, no bleeding noted and patient tolerated well. Patient is stable at discharge.
--- NOTE | 2018-08-28 13:34 | Discharge Summary ---
Discharge Summary Discharge Summary _ DATE OF ADMISSION: 08/22/2018 DATE OF DISCHARGE: 08/27/2018 DISCHARGED BY: Dr. Brittney Drew CONSULTANTS: Dr. Kade Hurley BRIEF HOSPITAL COURSE: Patient is a 63-year-old male, who had recurrent readmissions. Patient status post fall at home and had lrib/flank pain. He has history of CHF and had bilateral swelling and edema, shortness of breath and orthopnea. He denied fever or chills. He has history of CHF, asthma, hypertension, COPD, hyperlipidemia, and chronic renal insufficiency. On evaluation at ED, vital signs were stable. He was saturating 100% on room air. Blood work did not show any leukocytosis, hemoglobin and hematocrit were stable. Troponin was negative. BNP 50. He had a chest x-ray done that showed cardiomegaly and CHF per ED physician. EKG done showed normal sinus rhythm with no acute ischemic changes. He complained of pain on the ribs. CT of the chest was negative for acute fractures. He was given nebulizer treatment. He was given Lasix. He was then admitted for evaluation of acute COPD exacerbation , acute CHF exacerbation lower extremity edema, left-sided chest wall pain after a fall. Cardiac evaluation was done. Patient had severe bilateral lower extremity edema , however BNP is in normal range. He was placed on Lasix 40 mg twice daily. Patient has high blood pressure and was given lisinopril in addition to Lasix. He was continued on Lipitor. Piggyback Clerk was consulted. Patient with shortness of breath likely secondary to decompensated heart failure. He was given supplemental O2. He was placed on nebulizer treatment. He was given Advair. He was observed off antibiotics and steroids. He was placed on heparin subcutaneous for DVT prophylaxis. He was encouraged weight loss diet and exercise. Anemia workup was done. Patient had anemia due to underlying iron deficiency. Ferritin 82, TIBC approximately 200, likely iron depleted. He was continued on p.o. iron. There was no evidence of hemolysis. He did not require any blood transfusion. He had findings of multiple small right lung nodules. 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 He was saturating well and had less SOB. There was no wheezing. No chest pain. He was eventually cleared for discharge home. FINAL DIAGNOSES: Status post mechanical fall with rib pain negative for fractures Asthma without evidence of exacerbation Acute on chronic CHF with diastolic dysfunction Bilateral lower extremity edema, likely secondary to CHF Known scattered bilateral subcentimeter pulmonary nodules Iron deficiency anemia Hypertension Hyperlipidemia Morbid obesity Likely obstructive sleep apnea Chronic venous stasis of both lower extremities DISPOSITION: Patient was discharged home. DISCHARGE MEDICATIONS: Refer to Discharge Medication List. DISCHARGE INSTRUCTIONS: Follow-up in a week. I have been assigned to dictate discharge summary on this account, and I was not involved in the patient's management. Brooklyn Francis NP Aug 28, 2018 13:34
== END 2018-08-27 14:00 | disposition home or self-care (01) | DRG 194 ==
LOC: EMR 15:12 → EDBEDREQ 15:33 → 2E 15:50 → EDBEDREQ 16:27 → 2E 17:55
DX: I11.0 Hypertensive heart disease with heart failure (principal); E66.01 Morbid (severe) obesity due to excess calories; I27.20 Pulmonary hypertension, unspecified; R07.89 Other chest pain; Z91.81 History of falling; J45.909 Unspecified asthma, uncomplicated; I50.33 Acute on chronic diastolic (congestive) heart failure; R91.8 Other nonspecific abnormal finding of lung field; D50.9 Iron deficiency anemia, unspecified; E78.5 Hyperlipidemia, unspecified; G47.33 Obstructive sleep apnea (adult) (pediatric); Z88.6 Allergy status to analgesic agent; Z88.0 Allergy status to penicillin; I87.8 Other specified disorders of veins; M17.0 Bilateral primary osteoarthritis of knee; Z68.36 Body mass index [BMI] 36.0-36.9, adult
CPT/HCPCS: 36415; 71045; 71250; 80053; 82550; 82962; 83605; 83880; 84484; 85025; 87040; 93005; 94640; 94664; 94760; 96374; 99285; J7620

== ENCOUNTER 2018-09-11 23:19 | Inpatient (IN) | payer MEDICAID ==
[~2018-09-11] VITALS: Ht 190.5 cm; Wt 144.3 kg
[~2018-09-11 23:19] MED LIST changes: +PANTOPRAZOLE SO20 MG ORAL
[2018-09-11 23:45] VITALS: BP 112/62
[2018-09-12] MEDS ORDERED: Albuterol ud Inhalation HHN ONE ×2 (00:45→02:45)
[2018-09-12 01:00] LABS: BASOPHILS % (AUTO) 2.7 % (0.0-2.0); HEMATOCRIT 36.7 % (42.0-52.0); HEMOGLOBIN 11.4 G/DL (14.2-18.0); LYMPHOCYTES % (AUTO) 40.3 % (20.0-45.0); MEAN CORPUSCULAR VOLUME 82 FL (80-99); MONOCYTES % (AUTO) 7.6 % (1.0-10.0); NEUTROPHILS % (AUTO) 42.3 % (45.0-75.0); PLATELET COUNT 132 K/UL (150-450); RED BLOOD COUNT 4.45 M/UL (4.70-6.10); RED CELL DISTRIBUTION WIDTH 14.7 % (11.6-14.8); WHITE BLOOD COUNT 7.4 K/UL (4.8-10.8)
[2018-09-12 01:04] LABS: ANION GAP 10 mmol/L (5-15); BLOOD UREA NITROGEN 24 mg/dL (7-18); CALCIUM 9.4 MG/DL (8.5-10.1); CARBON DIOXIDE 27 MMOL/L (21-32); CHLORIDE 107 MMOL/L (98-107); POTASSIUM 4.7 MMOL/L (3.5-5.1); SODIUM 144 MMOL/L (136-145)
[2018-09-12 01:05] LABS: APPEARANCE,URINE CLEAR; BILIRUBIN, URINE NEGATIVE (NEGATIVE); COLOR,URINE PALE YELLOW; GLUCOSE, URINE (UA) NEGATIVE (NEGATIVE); KETONES,URINE NEGATIVE (NEGATIVE); LEUKOCYTE ESTERASE ,URINE NEGATIVE (NEGATIVE); NITRITE,URINE NEGATIVE (NEGATIVE); PH,URINE 5 (4.5-8.0); PROTEIN,URINE NEGATIVE (NEGATIVE); UROBILINOGEN,URINE NORMAL MG/DL (0.0-1.0)
[2018-09-12 01:18] LABS: ALANINE AMINOTRANSFERASE 26 U/L (12-78); ALBUMIN 3.4 G/DL (3.4-5.0); ALBUMIN/GLOBULIN RATIO 0.7 (1.0-2.7); ALKALINE PHOSPHATASE 89 U/L (46-116); ASPARTATE AMINO TRANSFERASE 22 U/L (15-37); BILIRUBIN,TOTAL < 0.1 MG/DL (0.2-1.0)
--- NOTE | 2018-09-12 01:43 | Emergency Room Report ---
History of Present Illness General Chief Complaint: Edema Source: Patient Present Illness HPI Is a 63-year-old male with a history of hypertension and reported CHF. He presents with chief complaint of leg pain secondary to edema. This is a chronic issue but worse the last few days. Worse with walking. Denies any fever chills but denies any nausea vomiting. Does have some mild coughing and shortness of breath. No exertional component. Allergies: Coded Allergies: PENICILLINS (Verified Allergy, Unknown, 08/31/17) TRAMADOL (Verified Allergy, Unknown, 08/31/17) Patient History Past Medical History: see triage record, old chart reviewed, HTN, CHF, asthma Past Surgical History: other Pertinent Family History: none Social History: Denies: smoking Immunizations: other Reviewed Nursing Documentation: PMH: Agreed; PSxH: Agreed Nursing Documentation-PMH Hx Cardiac Problems: Yes - CHF Hx Hypertension: Yes Hx Asthma: Yes Hx COPD: Yes Hx Cancer: No Hx Gastrointestinal Problems: No Hx Neurological Problems: No Review of Systems Eye: Denies: eye pain, blurred vision ENT: Denies: ear pain, nose congestion, throat swelling Respiratory: Reports: shortness of breath; Denies: cough Cardiovascular: Denies: chest pain, palpitations Gastrointestinal: Denies: abdominal pain, diarrhea, nausea, vomiting Musculoskeletal: Reports: muscle pain; Denies: back pain, joint pain Skin: Denies: rash Neurological: Denies: headache, numbness Endocrine: Denies: increased thirst, increased urine Hematologic/Lymphatic: Denies: easy bruising All Other Systems: negative except mentioned in HPI Physical Exam Vital Signs Date Time Temp Pulse Resp B/P (MAP) Pulse Ox O2 Delivery O2 Flow Rate FiO2 09/11/18 23:21 97.0 72 18 112/62 98 Room Air 09/12/18 00:53 21 vital signs normal Sp02 EP Interpretation: reviewed, normal General Appearance: well appearing, no apparent distress, alert, obese Head: normocephalic, atraumatic Eyes: bilateral eye PERRL, bilateral eye EOMI ENT: hearing grossly normal, normal pharynx Neck: full range of motion, supple, no meningismus Respiratory: chest non-tender, lungs clear, normal breath sounds Cardiovascular #1: regular rate, rhythm, no murmur Gastrointestinal: normal bowel sounds, non tender, no mass, no organomegaly, no bruit, non-distended Musculoskeletal: back normal, normal range of motion, other - 2+ pitting edema. Bilateral lymphedema Neurologic: alert, oriented x3 Psychiatric: mood/affect normal Skin: warm/dry Medical Decision Making Diagnostic Impression: Primary Impression: Peripheral edema Additional Impressions: Cocaine abuse Morbid obesity Asthma exacerbation Qualified Codes: J45.21 - Mild intermittent asthma with (acute) exacerbation ER Course Patient with increasing pedal edema. He said he is taking Lasix 10 mg twice a day. We'll increase it to 20 mg twice a day. I see no evidence of CHF. His lungs are clear after breathing treatment. Chest x-rays clear. BNP is normal. Troponin negative. I suspect noncompliance. This is probably a chronic issue worsen by his cocaine abuse. And his ejection fraction on echocardiogram was 60%. I see no criteria for admission. We'll discharge home. He diuresed well after Lasix here. Lab Results Impression labs unremarkable Rhythm Strip Diag. Results Rhythm Strip Time: 01:50 EP Interpretation: yes Rate: 77 Rhythm: NSR, no PVC's, no ectopy Chest X-Ray Diagnostic Results Chest X-Ray Diagnostic Results : Chest X-Ray Ordered: Yes # of Views/Limited/Complete: 1 View Indication: Shortness of Breath EP Interpretation: Yes Interpretation: no consolidation, no effusion, no pneumothorax, no acute cardiopulmonary disease Impression: No acute disease Electronically Signed by: Luis Carlos Taylor MD Last Vital Signs Date Time Temp Pulse Resp B/P (MAP) Pulse Ox O2 Delivery O2 Flow Rate FiO2 09/12/18 00:54 83 24 97 Room Air 21 09/11/18 23:21 97.0 112/62 Status: improved Disposition: HOME, SELF-CARE Condition: Stable Scripts Furosemide* (LASIX*) 20 Mg Tablet 20 MG ORAL BID, #60 TAB Prov: Luis Carlos Taylor MD 09/12/18 Referrals: NOT CHOSEN IPA/,REFERRING (PCP) Patient Instructions: Peripheral Edema Additional Instructions: Stop using cocaine. Follow-up with your doctor in 7 days. Take your Lasix. Return if worse. Luis Carlos Taylor MD Sep 12, 2018 01:43
[2018-09-12] MEDS ORDERED: FUROSEMIDE20 M1 ORAL (01:51)
[2018-09-12 04:50] VITALS: BP 158/111
[2018-09-12] MEDS ORDERED: Albuterol ud Inhalation HHN PRN (06:30)
[2018-09-12 08:00] VITALS: BP 157/97
[2018-09-12] MEDS: Advair 250/50 Inhaler - 14 dose INH SCH ×2 (08:41→19:30)
[2018-09-12] MEDS: Aspirin Baby 81mg ORAL SCH (09:36)
[2018-09-12] MEDS: Montelukast 10mg tablet ORAL SCH (09:36)
[2018-09-12] MEDS: HYDROcodone/Acetamin 10/325 tab ORAL PRN ×3 (09:40→20:41)
[2018-09-12] MEDS ORDERED: Albuterol 90mcg Inhaler 8gm INH PRN (10:30)
--- NOTE | 2018-09-12 11:07 | Diagnostic Imaging Report ---
Indication: Shortness of breath Technique: One view of the chest Comparison: 08/22/2018 Findings: Lungs and pleural spaces are clear. Heart size is normal. No significant interim change Impression: No acute process
[2018-09-12] MEDS: Albuterol/Ipratropium 3ml neb HHN SCH ×4 (11:50→23:32)
[2018-09-12 12:00] VITALS: BP 182/78
--- NOTE | 2018-09-12 14:30 | Consultation ---
Consult Note Consult Note DATE OF CONSULTATION: 09/12/2017 PULMONARY CONSULTATION CONSULTING PHYSICIAN: Rashad Haji M.D. REFERRING PHYSICIAN: Brittney Shepard M.D. REASON FOR CONSULTATION: Shortness of breath. HISTORY OF PRESENT ILLNESS: The patient is a 63-year-old male with multiple admissions for CHF and COPD, recently discharged after p/w a mechanical fall came in ON with NELLIE, admitted for diuresis. His breathing is @ baseline. No F/ C/CP/SOB/N/V/D/C/abdominal pain/urinary complaints. PAST MEDICAL HISTORY: 1. Congestive heart failure. 2. Obesity. 3. Likely THERON. 4. Asthma. 5. Hypertension. 6. Anemia. 7. Protein-calorie malnutrition. ALLERGIES: Penicillin and tramadol. MEDICATIONS: Active Scripts Medications Dose Route/Sig Max Daily Dose Days Date Category Dose Instructions Lasix* (Furosemide) 20 Mg Tablet 20 Mg ORAL BID 09/12/18 Rx Pantoprazole 20 Mg Tablet.dr 40 Mg ORAL DAILY 08/22/18 Reported Albuterol Sulfate Hhn* (Albuterol Sulfate) 2.5 Mg/3 Ml Vial.neb 3 Ml INH Q6H PRN 07/30/18 Reported Depakote Er* (Divalproex Sodium) 500 Mg Tab.er.24h 750 Mg ORAL BEDTIME 07/30/18 Reported Iron (Ferrous Sulfate) 325 Mg Tablet Unknown Dose PO 07/21/18 Reported [place] 10-325* (Acetaminophen/Hydrocodone Bitart) 1 Each Tablet 1 Tab ORAL Q4H PRN 06/23/18 Reported PRN PAIN Zocor (Simvastatin) 20 Mg Tablet 20 Mg ORAL BEDTIME 06/23/18 Reported Advair 250-50 Diskus (Salmeterol Xinafoate/Fluticasone) 1 Each Blst.w.dev 1 Puff INH EVERY 12 HOURS 04/22/18 Reported Benazepril Hcl* (Benazepril HCl) 20 Mg Tablet 10 Mg ORAL BID 03/30/18 Reported Singulair* (Montelukast Sodium) 10 Mg Tablet 10 Mg ORAL DAILY 08/31/17 Reported Aspirin* (Aspirin) 81 Mg Tab.chew 81 Mg ORAL DAILY 08/31/17 Reported SOCIAL HISTORY: No tobacco, alcohol, or drug use. FAMILY HISTORY: Noncontributory. REVIEW OF SYSTEMS: Negative other than history of present illness. PHYSICAL EXAMINATION: Last 24 Hour Vital Signs Date Time Temp Pulse Resp B/P (MAP) Pulse Ox O2 Delivery O2 Flow Rate FiO2 09/12/18 12:00 98.6 67 20 182/78 (112) 100 09/12/18 08:41 87 22 96 Nasal Cannula 2.0 28 09/12/18 08:41 89 22 96 Nasal Cannula 2.0 28 09/12/18 08:38 89 22 96 Nasal Cannula 2.0 28 09/12/18 08:31 86 26 Nasal Cannula 2.0 28 09/12/18 08:30 86 26 96 Nasal Cannula 2.0 28 09/12/18 08:00 97.7 80 20 157/97 (117) 94 09/12/18 04:50 98.2 82 20 158/111 (127) 97 09/12/18 04:46 Room Air 09/12/18 04:14 97.0 89 24 112/62 99 Room Air 21 09/12/18 02:56 79 24 99 21 09/12/18 02:42 96 24 96 Room Air 21 09/12/18 01:00 76 24 99 21 09/12/18 00:54 83 24 97 Room Air 21 09/12/18 00:53 83 24 Room Air 21 09/11/18 23:45 72 18 Room Air 09/11/18 23:45 97.0 18 112/62 98 Room Air 09/11/18 23:21 97.0 72 18 112/62 98 Room Air GENERAL: He is a well-developed, well-nourished male, in no acute distress. Awake, alert, and oriented x3. HEENT: Normocephalic and atraumatic. Oropharynx clear with moist mucous membranes. NECK: Supple without lymphadenopathy. JVP is elevated. CHEST: Clear. Decreased at the bases. No wheezing. HEART: Regular rhythm. ABDOMEN: Soft and nondistended. EXTREMITIES: No cyanosis, clubbing, 4+ NELLIE ANCILLARY DATA: Laboratory Tests Test 09/12/18 00:20 09/12/18 00:48 White Blood Count 7.4 K/UL (4.8-10.8) Red Blood Count 4.45 M/UL (4.70-6.10) L Hemoglobin 11.4 G/DL (14.2-18.0) L Hematocrit 36.7 % (42.0-52.0) L Mean Corpuscular Volume 82 FL (80-99) Mean Corpuscular Hemoglobin 25.6 PG (27.0-31.0) L Mean Corpuscular Hemoglobin Concent 31.1 G/DL (32.0-36.0) L Red Cell Distribution Width 14.7 % (11.6-14.8) Platelet Count 132 K/UL (150-450) L Mean Platelet Volume 8.9 FL (6.5-10.1) Neutrophils (%) (Auto) 42.3 % (45.0-75.0) L Lymphocytes (%) (Auto) 40.3 % (20.0-45.0) Monocytes (%) (Auto) 7.6 % (1.0-10.0) Eosinophils (%) (Auto) 7.0 % (0.0-3.0) H Basophils (%) (Auto) 2.7 % (0.0-2.0) H Sodium Level 144 MMOL/L (136-145) Potassium Level 4.7 MMOL/L (3.5-5.1) Chloride Level 107 MMOL/L (98-107) Carbon Dioxide Level 27 MMOL/L (21-32) Anion Gap 10 mmol/L (5-15) Blood Urea Nitrogen 24 mg/dL (7-18) H Creatinine 1.0 MG/DL (0.55-1.30) Estimat Glomerular Filtration Rate > 60 mL/min (>60) Glucose Level 88 MG/DL (74-106) Calcium Level 9.4 MG/DL (8.5-10.1) Total Bilirubin < 0.1 MG/DL (0.2-1.0) L Aspartate Amino Transf (AST/SGOT) 22 U/L (15-37) Alanine Aminotransferase (ALT/SGPT) 26 U/L (12-78) Alkaline Phosphatase 89 U/L (46-116) Troponin I 0.015 ng/mL (0.000-0.056) Pro-B-Type Natriuretic Peptide 110 pg/mL (0-125) Total Protein 8.3 G/DL (6.4-8.2) H Albumin 3.4 G/DL (3.4-5.0) Globulin 4.9 g/dL Albumin/Globulin Ratio 0.7 (1.0-2.7) L Urine Color Pale yellow Urine Appearance Clear Urine pH 5 (4.5-8.0) Urine Specific [place] 1.015 (1.005-1.035) Urine Protein Negative (NEGATIVE) Urine Glucose (UA) Negative (NEGATIVE) Urine Ketones Negative (NEGATIVE) Urine Blood Negative (NEGATIVE) Urine Nitrite Negative (NEGATIVE) Urine Bilirubin Negative (NEGATIVE) Urine Urobilinogen Normal MG/DL (0.0-1.0) Urine Leukocyte Esterase Negative (NEGATIVE) Urine Opiates Screen Negative (NEGATIVE) Urine Barbiturates Screen Negative (NEGATIVE) Phencyclidine (PCP) Screen Negative (NEGATIVE) Urine Amphetamines Screen Negative (NEGATIVE) Urine Benzodiazepines Screen Negative (NEGATIVE) Urine Cocaine Screen Positive (NEGATIVE) H Urine Marijuana (THC) Screen Positive (NEGATIVE) H Assessment/Plan ASSESSMENT: The patient is a 63-year-old male, lifelong nonsmoker with a history of congestive heart failure with diastolic dysfunction, pulmonary hypertension, obesity, likely obstructive sleep apnea, known pulmonary nodules, anemia and asthma, presenting with recurrent NELLIE PROBLEM LIST: 1. Asthma without evidence of exacerbation. 2. CHF with diastolic dysfunction, 3. Bilateral lower extremity edema, likely secondary to above. 4. Known scattered bilateral subcentimeter nodules, stable on follow-up - per patient being followed up by PULMONARY @ [facility] 5. Anemia. 6. Hypertension. 7. Obesity. 8. Likely THERON. TREATMENT PLAN: 1. Optimize pulmonary hygiene/mobilize as tolerated. 2. P.r.n. O2 to keep saturations greater than 90%. 3. RTC and PRN HHN's 4. Advair 250/50 5. Observe off antibiotics and steroids 6. Monitor volumes, diuresis per cards 7. ABG 8. Incentive spirometry 9. Continue to follow up with [facility] Pulmonary Clinic per the patient. 10. DVT prophylaxis, heparin subcutaneous. 11. Weight-loss diet and exercise discussed again. Rashad Haji MD, Ashkan L. MD Sep 12, 2018 14:30
--- NOTE | 2018-09-12 14:35 | Cardiac Electrophysiology PN ---
Subjective Subjective [id number] Objective Last 24 Hour Vital Signs Date Time Temp Pulse Resp B/P (MAP) Pulse Ox O2 Delivery O2 Flow Rate FiO2 09/12/18 12:00 98.6 67 20 182/78 (112) 100 09/12/18 08:41 87 22 96 Nasal Cannula 2.0 28 09/12/18 08:41 89 22 96 Nasal Cannula 2.0 28 09/12/18 08:38 89 22 96 Nasal Cannula 2.0 28 09/12/18 08:31 86 26 Nasal Cannula 2.0 28 09/12/18 08:30 86 26 96 Nasal Cannula 2.0 28 09/12/18 08:00 97.7 80 20 157/97 (117) 94 09/12/18 04:50 98.2 82 20 158/111 (127) 97 09/12/18 04:46 Room Air 09/12/18 04:14 97.0 89 24 112/62 99 Room Air 21 09/12/18 02:56 79 24 99 21 09/12/18 02:42 96 24 96 Room Air 21 09/12/18 01:00 76 24 99 21 09/12/18 00:54 83 24 97 Room Air 21 09/12/18 00:53 83 24 Room Air 21 09/11/18 23:45 72 18 Room Air 09/11/18 23:45 97.0 18 112/62 98 Room Air 09/11/18 23:21 97.0 72 18 112/62 98 Room Air Intake and Output 09/11/18 09/12/18 19:00 07:00 Intake Total 0 ml Balance 0 ml Intake Oral 0 ml Laboratory Tests Test 09/12/18 00:20 09/12/18 00:48 White Blood Count 7.4 K/UL (4.8-10.8) Red Blood Count 4.45 M/UL (4.70-6.10) L Hemoglobin 11.4 G/DL (14.2-18.0) L Hematocrit 36.7 % (42.0-52.0) L Mean Corpuscular Volume 82 FL (80-99) Mean Corpuscular Hemoglobin 25.6 PG (27.0-31.0) L Mean Corpuscular Hemoglobin Concent 31.1 G/DL (32.0-36.0) L Red Cell Distribution Width 14.7 % (11.6-14.8) Platelet Count 132 K/UL (150-450) L Mean Platelet Volume 8.9 FL (6.5-10.1) Neutrophils (%) (Auto) 42.3 % (45.0-75.0) L Lymphocytes (%) (Auto) 40.3 % (20.0-45.0) Monocytes (%) (Auto) 7.6 % (1.0-10.0) Eosinophils (%) (Auto) 7.0 % (0.0-3.0) H Basophils (%) (Auto) 2.7 % (0.0-2.0) H Sodium Level 144 MMOL/L (136-145) Potassium Level 4.7 MMOL/L (3.5-5.1) Chloride Level 107 MMOL/L (98-107) Carbon Dioxide Level 27 MMOL/L (21-32) Anion Gap 10 mmol/L (5-15) Blood Urea Nitrogen 24 mg/dL (7-18) H Creatinine 1.0 MG/DL (0.55-1.30) Estimat Glomerular Filtration Rate > 60 mL/min (>60) Glucose Level 88 MG/DL (74-106) Calcium Level 9.4 MG/DL (8.5-10.1) Total Bilirubin < 0.1 MG/DL (0.2-1.0) L Aspartate Amino Transf (AST/SGOT) 22 U/L (15-37) Alanine Aminotransferase (ALT/SGPT) 26 U/L (12-78) Alkaline Phosphatase 89 U/L (46-116) Troponin I 0.015 ng/mL (0.000-0.056) Pro-B-Type Natriuretic Peptide 110 pg/mL (0-125) Total Protein 8.3 G/DL (6.4-8.2) H Albumin 3.4 G/DL (3.4-5.0) Globulin 4.9 g/dL Albumin/Globulin Ratio 0.7 (1.0-2.7) L Urine Color Pale yellow Urine Appearance Clear Urine pH 5 (4.5-8.0) Urine Specific [place] 1.015 (1.005-1.035) Urine Protein Negative (NEGATIVE) Urine Glucose (UA) Negative (NEGATIVE) Urine Ketones Negative (NEGATIVE) Urine Blood Negative (NEGATIVE) Urine Nitrite Negative (NEGATIVE) Urine Bilirubin Negative (NEGATIVE) Urine Urobilinogen Normal MG/DL (0.0-1.0) Urine Leukocyte Esterase Negative (NEGATIVE) Urine Opiates Screen Negative (NEGATIVE) Urine Barbiturates Screen Negative (NEGATIVE) Phencyclidine (PCP) Screen Negative (NEGATIVE) Urine Amphetamines Screen Negative (NEGATIVE) Urine Benzodiazepines Screen Negative (NEGATIVE) Urine Cocaine Screen Positive (NEGATIVE) H Urine Marijuana (THC) Screen Positive (NEGATIVE) H Microbiology Date/Time Source Procedure Growth Status 09/12/18 04:00 Rectum Received Prosper Crum MD Sep 12, 2018 14:35
[2018-09-12 16:00] VITALS: BP 111/65
[2018-09-12] MEDS ORDERED: Advair 250/50 Inhaler - 14 dose INH SCH (18:00)
[2018-09-12 20:00] VITALS: BP 119/70
[2018-09-12] MEDS: Depakote ER 500mg tab ORAL SCH ×2 (20:43→20:46)
[2018-09-12] MEDS: Heparin 5000 units/ml inj SUBQ SCH (20:44)
--- NOTE | 2018-09-12 21:45 | Consultation ---
DATE OF CONSULTATION: 09/12/2018 CARDIOLOGY CONSULTATION CONSULTING PHYSICIAN: Prsoper Crum M.D. REFERRING PHYSICIAN: Brittney Shepard M.D. REASON FOR CONSULTATION: Evaluation of hypertension and severe bilateral lower extremity edema. HISTORY OF PRESENT ILLNESS: The patient is a 63-year-old gentleman with history of hypertension and diastolic dysfunction, who presented to the hospital with severe increasing lower extremity edema. This has been chronic. The patient has had multiple hospitalizations and was last discharged from the hospital 2 weeks ago. The patient's legs are so swollen that he has difficulty even walking. The patient was admitted and Cardiology consultation was obtained for further evaluation and management. REVIEW OF SYSTEMS: Negative other than what was mentioned in the history of present illness. PAST MEDICAL HISTORY: 1. Hypertension. 2. COPD. 3. Congestive heart failure. 4. Asthma. 5. Morbid obesity. FAMILY HISTORY: Noncontributory. SOCIAL HISTORY: He does not smoke or drink alcohol. PHYSICAL EXAMINATION: VITAL SIGNS: Blood pressure 182/78, pulse 67, respirations 18, and temperature 98.6. HEAD AND NECK: Showed no JVD or carotid bruits. LUNGS: Clear. CARDIOVASCULAR: Shows regular S1 and S2 with no gallop or murmur. ABDOMEN: Soft. EXTREMITIES: He has 3+ bilateral pitting edema. LABORATORY DATA: Labs showed white count of 7.4, hemoglobin 11.4, hematocrit 36.7, and platelet count of 132,000. Sodium 144, potassium 4.7, BUN of 24, creatinine 1. Troponin is negative. A urine toxicology is positive for cocaine and marijuana. ASSESSMENT AND PLAN: 1. Accelerated hypertension. Avoid beta-marlyn in view of the patient's active cocaine use. I will start the patient on Lasix 40 mg IV two times daily. 2. Severe bilateral lower extremity edema, likely congestive heart failure due to diastolic dysfunction. Echocardiogram showed EF of 60% with diastolic dysfunction. 3. Morbid obesity. 4. COPD. 5. Asthma, on Advair. Thank you very much, Dr. Shepard, for allowing me to participate in the care of this patient. Please do not hesitate to contact me if you have any questions regarding my evaluation. Prosper Crum M.D. DR: HODAN JOB#: [id number] CC:
[2018-09-13] VITALS: BP 128/64
--- NOTE | 2018-09-13 00:30 | History and Physical Report ---
DATE OF ADMISSION: 09/12/2018 HISTORY OF PRESENT ILLNESS: The patient is admitted for asthma and edema of the lower extremities with recurrent hospitalization for edema and CHF exacerbation. The patient has a completely worsening edema as well as orthopnea and does have some wheezing. Does have shortness of breath and coughing. He is admitted for those reasons. PAST MEDICAL HISTORY: COPD/asthma, CHF, leg edema, history of drug abuse, morbid obesity, leg edema, hyperlipidemia, and iron-deficiency anemia. PAST SURGICAL HISTORY: Denies. MEDICATIONS: Aspirin, breathing treatment, benazepril, Depakote, ferrous sulfate, Lasix, Protonix, and . ALLERGIES: Tramadol and penicillin. FAMILY HISTORY: Noncontributory. SOCIAL HISTORY: Does have history of drug abuse. Denies smoking. REVIEW OF SYSTEMS: HEENT: Denies headaches. RESPIRATORY: Reports shortness of breath and cough. CARDIOVASCULAR: Denies chest pain. GASTROINTESTINAL: Denies nausea, vomiting, or diarrhea. EXTREMITY: Denies worsening leg edema. REHAB SPECIALIST: No change in speech pattern. He has weakness and worsening edema and orthopnea. PHYSICAL EXAMINATION: VITAL SIGNS: Temperature is not recorded. Pulse of 74. Blood pressure not recorded. HEENT: PERRLA. NECK: Supple. No lymphadenopathy. CHEST: Clear to auscultation. CARDIOVASCULAR: Regular rate and rhythm. No murmurs or extra sounds. GASTROINTESTINAL: Soft and distended. Positive bowel sounds. No organomegaly. EXTREMITIES: 3+ edema. Reflexes equal on both sides. Moves all 4 extremities. LABORATORY DATA: WBC of 7.4, hemoglobin 11.4, and platelets of 132,000. Sodium 145, potassium 4.7, BUN of 24, creatinine 1, and glucose is 88. ASSESSMENT: Congestive heart failure exacerbation and worsening leg edema. PLAN: I have asked Dr. Haji, Dr. Crum, and Dr. Hardwick to see the patient for the above-mentioned diagnoses and treatment. Brittney Shepard M.D. DR: LINDSAY JOB#: [id number] CC:
[2018-09-13] MEDS: HYDROcodone/Acetamin 10/325 tab ORAL PRN ×5 (01:12→20:11)
[2018-09-13] MEDS: Albuterol/Ipratropium 3ml neb HHN SCH ×5 (03:00→20:16)
[2018-09-13 04:00] VITALS: BP 136/64
[2018-09-13 06:30] LABS: HEMOGLOBIN 9.4 G/DL (14.2-18.0); MEAN CORPUSCULAR VOLUME 83 FL (80-99); PLATELET COUNT 167 K/UL (150-450); RED BLOOD COUNT 3.63 M/UL (4.70-6.10); RED CELL DISTRIBUTION WIDTH 14.7 % (11.6-14.8); WHITE BLOOD COUNT 5.7 K/UL (4.8-10.8)
[2018-09-13 06:39] LABS: ALANINE AMINOTRANSFERASE 20 U/L (12-78); ALBUMIN 2.7 G/DL (3.4-5.0); ALBUMIN/GLOBULIN RATIO 0.7 (1.0-2.7); ALKALINE PHOSPHATASE 71 U/L (46-116); ANION GAP 5 mmol/L (5-15); ASPARTATE AMINO TRANSFERASE 12 U/L (15-37); BILIRUBIN,TOTAL 0.2 MG/DL (0.2-1.0); BLOOD UREA NITROGEN 19 mg/dL (7-18); CALCIUM 9.1 MG/DL (8.5-10.1); CARBON DIOXIDE 29 MMOL/L (21-32); CHLORIDE 103 MMOL/L (98-107); CREATININE 0.9 MG/DL (0.55-1.30); POTASSIUM 4.1 MMOL/L (3.5-5.1); SODIUM 137 MMOL/L (136-145)
[2018-09-13 08:00] VITALS: BP 117/64
[2018-09-13] MEDS: Montelukast 10mg tablet ORAL SCH (08:38)
[2018-09-13] MEDS: Aspirin Baby 81mg ORAL SCH (08:39)
[2018-09-13] MEDS: Heparin 5000 units/ml inj SUBQ SCH ×2 (08:41→20:20)
[2018-09-13] MEDS: Advair 250/50 Inhaler - 14 dose INH SCH ×2 (08:52→22:12)
[2018-09-13 12:00] VITALS: BP 123/69
--- NOTE | 2018-09-13 13:15 | Pulmonology Progress Note ---
Assessment/Plan Problems: (1) Edema (2) CHF (congestive heart failure) (3) COPD exacerbation (4) Peripheral edema (5) Morbid obesity Assessment/Plan ASSESSMENT: The patient is a 63-year-old male, lifelong nonsmoker with a history of congestive heart failure with diastolic dysfunction, pulmonary hypertension, obesity, likely obstructive sleep apnea, known pulmonary nodules, anemia and asthma, presenting with recurrent NELLIE PROBLEM LIST: 1. Asthma without evidence of exacerbation. 2. CHF with diastolic dysfunction, 3. Bilateral lower extremity edema, likely secondary to above. 4. Known scattered bilateral subcentimeter nodules, stable on follow-up - per patient being followed up by PULMONARY @ [facility] 5. Anemia. 6. Hypertension. 7. Obesity. 8. Likely THERON. TREATMENT PLAN: 1. Optimize pulmonary hygiene/mobilize as tolerated. 2. P.r.n. O2 to keep saturations greater than 90%. 3. RTC and PRN HHN's 4. Advair 250/50 5. Observe off antibiotics and steroids 6. Monitor volumes, diuresis per cards 7. Incentive spirometry 8. Continue to follow up with [facility] Pulmonary Clinic per the patient. 9. DVT prophylaxis, heparin subcutaneous. 10. Weight-loss diet and exercise discussed again. Subjective Allergies: Coded Allergies: PENICILLINS (Verified Allergy, Unknown, 08/31/17) TRAMADOL (Verified Allergy, Unknown, 08/31/17) Subjective AFVSS O2 needs stable - 650 Less edema no SOB no cough no wheezing no FC Objective Last 24 Hour Vital Signs Date Time Temp Pulse Resp B/P (MAP) Pulse Ox O2 Delivery O2 Flow Rate FiO2 09/13/18 12:00 97.8 62 19 123/69 (87) 100 09/13/18 11:39 98.1 09/13/18 11:34 65 20 98 Nasal Cannula 2.0 28 09/13/18 11:23 63 18 96 Nasal Cannula 2.0 28 09/13/18 09:00 Room Air 2.0 09/13/18 08:52 72 17 96 Nasal Cannula 2.0 28 09/13/18 08:52 72 17 96 Nasal Cannula 2.0 28 09/13/18 08:00 98.1 74 18 117/64 (81) 97 09/13/18 07:42 72 17 98 Nasal Cannula 2.0 28 09/13/18 07:32 70 15 96 Nasal Cannula 2.0 28 09/13/18 07:32 96 Nasal Cannula 2.0 28 09/13/18 07:32 Nasal Cannula 2.0 28 09/13/18 04:00 Nasal Cannula 2.0 28 09/13/18 04:00 Nasal Cannula 2.0 28 09/13/18 04:00 98.1 65 20 136/64 (88) 99 09/13/18 00:00 98.6 68 20 128/64 (85) 99 09/12/18 23:35 86 20 99 Nasal Cannula 2.0 28 09/12/18 23:24 72 20 98 Nasal Cannula 2.0 28 09/12/18 21:00 Room Air 2.0 09/12/18 20:20 79 20 98 Nasal Cannula 2.0 28 09/12/18 20:00 76 20 97 Nasal Cannula 2.0 28 09/12/18 20:00 98.2 72 20 119/70 (86) 98 09/12/18 19:38 95 Nasal Cannula 2.0 28 09/12/18 19:38 Nasal Cannula 2.0 28 09/12/18 19:33 76 20 Nasal Cannula 2.0 28 09/12/18 19:32 79 20 99 Nasal Cannula 2.0 28 09/12/18 19:21 74 20 98 Nasal Cannula 2.0 28 09/12/18 16:00 97.6 70 20 111/65 (80) 100 09/12/18 15:38 82 20 98 Nasal Cannula 2.0 28 09/12/18 15:32 86 24 96 Nasal Cannula 2.0 28 Intake and Output 09/12/18 09/13/18 18:59 06:59 Intake Total 2800 ml Output Total 3450 ml Balance -650 ml Intake Oral 2800 ml Output Urine Total 3450 ml General Appearance: WD/WN, no acute distress HEENT: normocephalic, atraumatic, anicteric, mucous membranes moist, other - 6 cm JVD Respiratory/Chest: chest wall non-tender, normal breath sounds, no respiratory distress, no accessory muscle use, crackles/rales - BiB Cardiovascular: normal peripheral pulses, normal rate, regular rhythm Abdomen: normal bowel sounds, soft, non tender, no organomegaly, non distended , no mass Extremities: no cyanosis, no clubbing, other - 2+ NELLIE Microbiology Date/Time Source Procedure Growth Status 09/12/18 04:00 Rectum Received Laboratory Tests 09/12/18 15:52: Arterial Blood pH 7.392, Arterial Blood Partial Pressure CO2 41.9, Arterial Blood Partial Pressure O2 97.8, Arterial Blood HCO3 24.9, Arterial Blood Oxygen Saturation 97.0, Arterial Blood Base Excess -0.1, Travis Test Positive 09/13/18 05:40: White Blood Count 5.7, Red Blood Count 3.63L, Hemoglobin 9.4L, Hematocrit 30.0L , Mean Corpuscular Volume 83, Mean Corpuscular Hemoglobin 26.0L, Mean Corpuscular Hemoglobin Concent 31.5L, Red Cell Distribution Width 14.7, Platelet Count 167, Mean Platelet Volume 8.1, Neutrophils (%) (Auto) , Lymphocytes (%) (Auto) , Monocytes (%) (Auto) , Eosinophils (%) (Auto) , Basophils (%) (Auto) , Differential Total Cells Counted 100, Neutrophils % ( Manual) 30L, Lymphocytes % (Manual) 61H, Monocytes % (Manual) 2, Eosinophils % ( Manual) 6H, Basophils % (Manual) 1, Band Neutrophils 0, Platelet Estimate Adequate, Platelet Morphology Normal, Hypochromasia 1+, Anisocytosis 1+, Sodium Level 137, Potassium Level 4.1, Chloride Level 103, Carbon Dioxide Level 29, Anion Gap 5, Blood Urea Nitrogen 19H, Creatinine 0.9, Estimat Glomerular Filtration Rate > 60, Glucose Level 87, Calcium Level 9.1, Total Bilirubin 0.2, Aspartate Amino Transf (AST/SGOT) 12L, Alanine Aminotransferase (ALT/SGPT) 20, Alkaline Phosphatase 71, Total Protein 6.8, Albumin 2.7L, Globulin 4.1, Albumin/ Globulin Ratio 0.7L Current Medications Medications (Trade) Dose Ordered Sig/Virgen Route PRN Reason Start Time Stop Time Status Last Admin Dose Admin Acetaminophen/ Hydrocodone Bitart ([place] 10/325) 1 tab Q4H PRN ORAL For Pain 09/12/18 06:30 09/19/18 06:29 09/13/18 10:59 Albuterol/ Ipratropium (Albuterol/ Ipratropium) 3 ml Q4HRT HHN 09/12/18 11:00 09/17/18 10:59 09/13/18 11:22 Aspirin (ASA) 81 mg DAILY ORAL 09/12/18 09:00 10/12/18 08:59 09/13/18 08:39 Divalproex Sodium (Depakote ER) 750 mg BEDTIME ORAL 09/12/18 21:00 10/12/18 20:59 Ferrous Sulfate (Feosol) 325 mg DAILY ORAL 09/12/18 09:00 10/12/18 08:59 09/13/18 08:39 Furosemide (Lasix) 40 mg EVERY 12 HOURS IV 09/12/18 21:00 10/12/18 20:59 09/13/18 08:39 Heparin Sodium (Porcine) (Heparin 5000 units/ml) 5,000 units EVERY 12 HOURS SUBQ 09/12/18 21:00 10/12/18 20:59 Montelukast Sodium (Singulair) 10 mg DAILY ORAL 09/12/18 09:00 10/12/18 08:59 09/13/18 08:38 Salmeterol Xinafoate/ Fluticasone (Advair 250/50 Diskus) 1 puffs EVERY 12 HOURS INH 09/12/18 09:00 10/12/18 08:59 09/13/18 08:52 Rashad Haji MD Sep 13, 2018 13:15
--- NOTE | 2018-09-13 14:39 | General Progress Note ---
Assessment/Plan Problem List: (1) Edema ICD Codes: R60.9 - Edema, unspecified SNOMED: 036206204, 004992069 (2) Pain ICD Codes: R52 - Pain, unspecified SNOMED: 70322191 (3) Anemia, iron deficiency ICD Codes: D50.9 - Iron deficiency anemia, unspecified SNOMED: 12678635 (4) CHF exacerbation ICD Codes: I50.9 - Heart failure, unspecified SNOMED: 60741360 (5) Cocaine abuse ICD Codes: F14.10 - Cocaine abuse, uncomplicated SNOMED: 31417401 (6) Asthma exacerbation ICD Codes: J45.901 - Unspecified asthma with (acute) exacerbation SNOMED: 543686738 Qualifiers: Qualified Codes: J45.21 - Mild intermittent asthma with (acute) exacerbation (7) Morbid obesity ICD Codes: E66.01 - Morbid (severe) obesity due to excess calories SNOMED: 734355691 (8) Edema ICD Codes: R60.9 - Edema, unspecified SNOMED: 490079623, 512158169 (9) CHF (congestive heart failure) ICD Codes: I50.9 - Heart failure, unspecified SNOMED: 32027297 (10) Peripheral edema ICD Codes: R60.9 - Edema, unspecified SNOMED: 617837906 (11) COPD exacerbation ICD Codes: J44.1 - Chronic obstructive pulmonary disease with (acute) exacerbation SNOMED: 255134599 Status: progressing Assessment/Plan sob is improving no wheezing today edema is significant in lower extremity afebrile chf ashma /copd exac ordered duoneb already Subjective Cardiovascular: Reports: edema Respiratory: Reports: orthopnea, shortness of breath Allergies: Coded Allergies: PENICILLINS (Verified Allergy, Unknown, 08/31/17) TRAMADOL (Verified Allergy, Unknown, 08/31/17) Objective Last 24 Hour Vital Signs Date Time Temp Pulse Resp B/P (MAP) Pulse Ox O2 Delivery O2 Flow Rate FiO2 09/13/18 12:00 97.8 62 19 123/69 (87) 100 09/13/18 11:39 98.1 09/13/18 11:34 65 20 98 Nasal Cannula 2.0 28 09/13/18 11:23 63 18 96 Nasal Cannula 2.0 28 09/13/18 09:00 Room Air 2.0 09/13/18 08:52 72 17 96 Nasal Cannula 2.0 28 09/13/18 08:52 72 17 96 Nasal Cannula 2.0 28 09/13/18 08:00 98.1 74 18 117/64 (81) 97 09/13/18 07:42 72 17 98 Nasal Cannula 2.0 28 09/13/18 07:32 70 15 96 Nasal Cannula 2.0 28 09/13/18 07:32 96 Nasal Cannula 2.0 28 09/13/18 07:32 Nasal Cannula 2.0 28 09/13/18 04:00 Nasal Cannula 2.0 28 09/13/18 04:00 Nasal Cannula 2.0 28 09/13/18 04:00 98.1 65 20 136/64 (88) 99 09/13/18 00:00 98.6 68 20 128/64 (85) 99 09/12/18 23:35 86 20 99 Nasal Cannula 2.0 28 09/12/18 23:24 72 20 98 Nasal Cannula 2.0 28 09/12/18 21:00 Room Air 2.0 09/12/18 20:20 79 20 98 Nasal Cannula 2.0 28 09/12/18 20:00 76 20 97 Nasal Cannula 2.0 28 09/12/18 20:00 98.2 72 20 119/70 (86) 98 09/12/18 19:38 95 Nasal Cannula 2.0 28 09/12/18 19:38 Nasal Cannula 2.0 28 09/12/18 19:33 76 20 Nasal Cannula 2.0 28 09/12/18 19:32 79 20 99 Nasal Cannula 2.0 28 09/12/18 19:21 74 20 98 Nasal Cannula 2.0 28 09/12/18 16:00 97.6 70 20 111/65 (80) 100 09/12/18 15:38 82 20 98 Nasal Cannula 2.0 28 09/12/18 15:32 86 24 96 Nasal Cannula 2.0 28 Intake and Output 09/12/18 09/13/18 18:59 06:59 Intake Total 2800 ml Output Total 3450 ml Balance -650 ml Intake Oral 2800 ml Output Urine Total 3450 ml Laboratory Tests 09/12/18 15:52: Arterial Blood pH 7.392, Arterial Blood Partial Pressure CO2 41.9, Arterial Blood Partial Pressure O2 97.8, Arterial Blood HCO3 24.9, Arterial Blood Oxygen Saturation 97.0, Arterial Blood Base Excess -0.1, Travis Test Positive 09/13/18 05:40: White Blood Count 5.7, Red Blood Count 3.63L, Hemoglobin 9.4L, Hematocrit 30.0L , Mean Corpuscular Volume 83, Mean Corpuscular Hemoglobin 26.0L, Mean Corpuscular Hemoglobin Concent 31.5L, Red Cell Distribution Width 14.7, Platelet Count 167, Mean Platelet Volume 8.1, Neutrophils (%) (Auto) , Lymphocytes (%) (Auto) , Monocytes (%) (Auto) , Eosinophils (%) (Auto) , Basophils (%) (Auto) , Differential Total Cells Counted 100, Neutrophils % ( Manual) 30L, Lymphocytes % (Manual) 61H, Monocytes % (Manual) 2, Eosinophils % ( Manual) 6H, Basophils % (Manual) 1, Band Neutrophils 0, Platelet Estimate Adequate, Platelet Morphology Normal, Hypochromasia 1+, Anisocytosis 1+, Sodium Level 137, Potassium Level 4.1, Chloride Level 103, Carbon Dioxide Level 29, Anion Gap 5, Blood Urea Nitrogen 19H, Creatinine 0.9, Estimat Glomerular Filtration Rate > 60, Glucose Level 87, Calcium Level 9.1, Total Bilirubin 0.2, Aspartate Amino Transf (AST/SGOT) 12L, Alanine Aminotransferase (ALT/SGPT) 20, Alkaline Phosphatase 71, Total Protein 6.8, Albumin 2.7L, Globulin 4.1, Albumin/ Globulin Ratio 0.7L Height (Feet): 6 Height (Inches): 3.00 Weight (Pounds): 325 Cardiovascular: normal rate Respiratory/Chest: lungs clear Abdomen: soft Brittney Shepard MD Sep 13, 2018 14:39
--- NOTE | 2018-09-13 14:51 | Cardiac Electrophysiology PN ---
Assessment/Plan Assessment/Plan 1. Accelerated hypertension. Avoid beta-marlyn in view of the patient's active cocaine use. On Lasix 40 mg IV two times daily. 2. Severe bilateral lower extremity edema, likely congestive heart failure due to diastolic dysfunction. Echocardiogram EF of 60% with diastolic dysfunction. 3. Morbid obesity. 4. COPD. 5. Asthma, on Advair. JEANETTE RN Subjective Subjective Feeling better with IV Lasix. Diuresing well. No CP or SOB Objective Last 24 Hour Vital Signs Date Time Temp Pulse Resp B/P (MAP) Pulse Ox O2 Delivery O2 Flow Rate FiO2 09/13/18 12:00 97.8 62 19 123/69 (87) 100 09/13/18 11:39 98.1 09/13/18 11:34 65 20 98 Nasal Cannula 2.0 28 09/13/18 11:23 63 18 96 Nasal Cannula 2.0 28 09/13/18 09:00 Room Air 2.0 09/13/18 08:52 72 17 96 Nasal Cannula 2.0 28 09/13/18 08:52 72 17 96 Nasal Cannula 2.0 28 09/13/18 08:00 98.1 74 18 117/64 (81) 97 09/13/18 07:42 72 17 98 Nasal Cannula 2.0 28 09/13/18 07:32 70 15 96 Nasal Cannula 2.0 28 09/13/18 07:32 96 Nasal Cannula 2.0 28 09/13/18 07:32 Nasal Cannula 2.0 28 09/13/18 04:00 Nasal Cannula 2.0 28 09/13/18 04:00 Nasal Cannula 2.0 28 09/13/18 04:00 98.1 65 20 136/64 (88) 99 09/13/18 00:00 98.6 68 20 128/64 (85) 99 09/12/18 23:35 86 20 99 Nasal Cannula 2.0 28 09/12/18 23:24 72 20 98 Nasal Cannula 2.0 28 09/12/18 21:00 Room Air 2.0 09/12/18 20:20 79 20 98 Nasal Cannula 2.0 28 09/12/18 20:00 76 20 97 Nasal Cannula 2.0 28 09/12/18 20:00 98.2 72 20 119/70 (86) 98 09/12/18 19:38 95 Nasal Cannula 2.0 28 09/12/18 19:38 Nasal Cannula 2.0 28 09/12/18 19:33 76 20 Nasal Cannula 2.0 28 09/12/18 19:32 79 20 99 Nasal Cannula 2.0 28 09/12/18 19:21 74 20 98 Nasal Cannula 2.0 28 09/12/18 16:00 97.6 70 20 111/65 (80) 100 09/12/18 15:38 82 20 98 Nasal Cannula 2.0 28 09/12/18 15:32 86 24 96 Nasal Cannula 2.0 28 Intake and Output 09/12/18 09/13/18 18:59 06:59 Intake Total 2800 ml Output Total 3450 ml Balance -650 ml Intake Oral 2800 ml Output Urine Total 3450 ml Laboratory Tests Test 09/12/18 15:52 09/13/18 05:40 Arterial Blood pH 7.392 (7.350-7.450) Arterial Blood Partial Pressure CO2 41.9 mmHg (35.0-45.0) Arterial Blood Partial Pressure O2 97.8 mmHg (75.0-100.0) Arterial Blood HCO3 24.9 mmol/L (22.0-26.0) Arterial Blood Oxygen Saturation 97.0 % (95-100) Arterial Blood Base Excess -0.1 (-2-2) Travis Test Positive White Blood Count 5.7 K/UL (4.8-10.8) Red Blood Count 3.63 M/UL (4.70-6.10) L Hemoglobin 9.4 G/DL (14.2-18.0) L Hematocrit 30.0 % (42.0-52.0) L Mean Corpuscular Volume 83 FL (80-99) Mean Corpuscular Hemoglobin 26.0 PG (27.0-31.0) L Mean Corpuscular Hemoglobin Concent 31.5 G/DL (32.0-36.0) L Red Cell Distribution Width 14.7 % (11.6-14.8) Platelet Count 167 K/UL (150-450) Mean Platelet Volume 8.1 FL (6.5-10.1) Neutrophils (%) (Auto) % (45.0-75.0) Lymphocytes (%) (Auto) % (20.0-45.0) Monocytes (%) (Auto) % (1.0-10.0) Eosinophils (%) (Auto) % (0.0-3.0) Basophils (%) (Auto) % (0.0-2.0) Differential Total Cells Counted 100 Neutrophils % (Manual) 30 % (45-75) L Lymphocytes % (Manual) 61 % (20-45) H Monocytes % (Manual) 2 % (1-10) Eosinophils % (Manual) 6 % (0-3) H Basophils % (Manual) 1 % (0-2) Band Neutrophils 0 % (0-8) Platelet Estimate Adequate Platelet Morphology Normal Hypochromasia 1+ Anisocytosis 1+ Sodium Level 137 MMOL/L (136-145) Potassium Level 4.1 MMOL/L (3.5-5.1) Chloride Level 103 MMOL/L (98-107) Carbon Dioxide Level 29 MMOL/L (21-32) Anion Gap 5 mmol/L (5-15) Blood Urea Nitrogen 19 mg/dL (7-18) H Creatinine 0.9 MG/DL (0.55-1.30) Estimat Glomerular Filtration Rate > 60 mL/min (>60) Glucose Level 87 MG/DL (74-106) Calcium Level 9.1 MG/DL (8.5-10.1) Total Bilirubin 0.2 MG/DL (0.2-1.0) Aspartate Amino Transf (AST/SGOT) 12 U/L (15-37) L Alanine Aminotransferase (ALT/SGPT) 20 U/L (12-78) Alkaline Phosphatase 71 U/L (46-116) Total Protein 6.8 G/DL (6.4-8.2) Albumin 2.7 G/DL (3.4-5.0) L Globulin 4.1 g/dL Albumin/Globulin Ratio 0.7 (1.0-2.7) L Microbiology Date/Time Source Procedure Growth Status 09/12/18 04:00 Rectum Received Objective HEAD AND NECK: No JVD or carotid bruits. LUNGS: Clear. CARDIOVASCULAR: Regular S1 and S2 with no gallop or murmur. ABDOMEN: Soft. EXTREMITIES: 3+ bilateral pitting edema. Prosper Crum MD Sep 13, 2018 14:51
[2018-09-13 16:00] VITALS: BP 119/71
[2018-09-13 20:00] VITALS: BP 131/60
[2018-09-13] MEDS: Depakote ER 500mg tab ORAL SCH (20:19)
[2018-09-14] VITALS: BP 133/53
[2018-09-14] MEDS: Albuterol/Ipratropium 3ml neb HHN SCH ×7 (00:03→23:07)
[2018-09-14 04:00] VITALS: BP 121/103
[2018-09-14] MEDS: HYDROcodone/Acetamin 10/325 tab ORAL PRN ×4 (04:11→20:12)
[2018-09-14 07:06] LABS: BASOPHILS % (AUTO) 1.9 % (0.0-2.0); EOSINOPHILS % (AUTO) 10.3 % (0.0-3.0); HEMATOCRIT 30.3 % (42.0-52.0); HEMOGLOBIN 9.4 G/DL (14.2-18.0); LYMPHOCYTES % (AUTO) 46.3 % (20.0-45.0); MEAN CORPUSCULAR VOLUME 82 FL (80-99); MONOCYTES % (AUTO) 12.7 % (1.0-10.0); NEUTROPHILS % (AUTO) 28.9 % (45.0-75.0); PLATELET COUNT 165 K/UL (150-450); RED BLOOD COUNT 3.68 M/UL (4.70-6.10); RED CELL DISTRIBUTION WIDTH 14.7 % (11.6-14.8); WHITE BLOOD COUNT 4.9 K/UL (4.8-10.8)
[2018-09-14 07:11] LABS: ALANINE AMINOTRANSFERASE 18 U/L (12-78); ALBUMIN 2.6 G/DL (3.4-5.0); ALBUMIN/GLOBULIN RATIO 0.7 (1.0-2.7); ALKALINE PHOSPHATASE 65 U/L (46-116); ANION GAP 5 mmol/L (5-15); ASPARTATE AMINO TRANSFERASE 13 U/L (15-37); BILIRUBIN,TOTAL 0.1 MG/DL (0.2-1.0); BLOOD UREA NITROGEN 28 mg/dL (7-18); CARBON DIOXIDE 32 MMOL/L (21-32); CHLORIDE 103 MMOL/L (98-107); POTASSIUM 4.2 MMOL/L (3.5-5.1); SODIUM 140 MMOL/L (136-145)
[2018-09-14 08:00] VITALS: BP 121/67
[2018-09-14] MEDS: Advair 250/50 Inhaler - 14 dose INH SCH ×2 (08:15→19:54)
[2018-09-14] MEDS: Montelukast 10mg tablet ORAL SCH (08:32)
[2018-09-14] MEDS: Aspirin Baby 81mg ORAL SCH (08:32)
[2018-09-14] MEDS: Heparin 5000 units/ml inj SUBQ SCH ×2 (08:33→20:16)
[2018-09-14 12:00] VITALS: BP 111/62
--- NOTE | 2018-09-14 12:49 | General Progress Note ---
Assessment/Plan Problem List: (1) Edema ICD Codes: R60.9 - Edema, unspecified SNOMED: 735342349, 650764661 (2) Pain ICD Codes: R52 - Pain, unspecified SNOMED: 65100433 (3) Anemia, iron deficiency ICD Codes: D50.9 - Iron deficiency anemia, unspecified SNOMED: 74682534 (4) CHF exacerbation ICD Codes: I50.9 - Heart failure, unspecified SNOMED: 49638643 (5) Cocaine abuse ICD Codes: F14.10 - Cocaine abuse, uncomplicated SNOMED: 93285111 (6) Asthma exacerbation ICD Codes: J45.901 - Unspecified asthma with (acute) exacerbation SNOMED: 798387689 Qualifiers: Qualified Codes: J45.21 - Mild intermittent asthma with (acute) exacerbation (7) Morbid obesity ICD Codes: E66.01 - Morbid (severe) obesity due to excess calories SNOMED: 774015071 (8) Edema ICD Codes: R60.9 - Edema, unspecified SNOMED: 445001463, 266225269 (9) CHF (congestive heart failure) ICD Codes: I50.9 - Heart failure, unspecified SNOMED: 31026553 (10) Peripheral edema ICD Codes: R60.9 - Edema, unspecified SNOMED: 129432640 (11) COPD exacerbation ICD Codes: J44.1 - Chronic obstructive pulmonary disease with (acute) exacerbation SNOMED: 288965813 Status: stable Assessment/Plan diuresis per renal and cardiology edema is significant in lower extremity no wheezing chf improving ashma /copd exac improving ordered duoneb already Subjective Allergies: Coded Allergies: PENICILLINS (Verified Allergy, Unknown, 08/31/17) TRAMADOL (Verified Allergy, Unknown, 08/31/17) Subjective leg pain some cough Objective Last 24 Hour Vital Signs Date Time Temp Pulse Resp B/P (MAP) Pulse Ox O2 Delivery O2 Flow Rate FiO2 09/14/18 11:40 83 16 99 Nasal Cannula 2.0 09/14/18 11:31 81 16 98 Nasal Cannula 2.0 09/14/18 11:31 28 09/14/18 09:00 Room Air 2.0 09/14/18 08:23 79 16 99 Nasal Cannula 2.0 09/14/18 08:15 72 18 99 Nasal Cannula 2.0 09/14/18 08:15 76 18 99 Nasal Cannula 2.0 28 09/14/18 08:12 28 09/14/18 08:12 95 Nasal Cannula 2.0 28 09/14/18 08:12 Nasal Cannula 2.0 28 09/14/18 08:12 73 16 98 Nasal Cannula 2.0 28 09/14/18 08:00 98.1 70 20 121/67 (85) 99 09/14/18 04:00 98.3 70 18 121/103 (109) 99 09/14/18 03:39 88 19 99 Nasal Cannula 2.0 28 09/14/18 03:32 72 18 97 Nasal Cannula 2.0 28 09/14/18 00:11 77 18 99 Nasal Cannula 2.0 28 09/14/18 00:03 70 18 95 Nasal Cannula 2.0 28 09/14/18 00:00 98.3 87 19 133/53 (79) 98 09/13/18 22:12 74 18 99 Nasal Cannula 2.0 28 09/13/18 22:12 74 18 99 Nasal Cannula 2.0 28 09/13/18 21:00 Room Air 2.0 09/13/18 20:26 72 16 99 Nasal Cannula 2.0 28 09/13/18 20:16 66 16 98 Nasal Cannula 2.0 28 09/13/18 20:16 96 Nasal Cannula 2.0 28 09/13/18 20:16 Nasal Cannula 2.0 28 09/13/18 20:00 98.5 72 19 131/60 (83) 98 09/13/18 16:34 97.8 09/13/18 16:00 98.8 64 17 119/71 (87) 99 09/13/18 15:29 70 16 98 Nasal Cannula 2.0 28 09/13/18 15:19 65 15 98 Nasal Cannula 2.0 28 Intake and Output 09/13/18 09/14/18 19:00 07:00 Output Total 2900 ml 3400 ml Balance -2900 ml -3400 ml Output Urine Total 2900 ml 3400 ml Laboratory Tests 09/14/18 05:35: White Blood Count 4.9, Red Blood Count 3.68L, Hemoglobin 9.4L, Hematocrit 30.3L , Mean Corpuscular Volume 82, Mean Corpuscular Hemoglobin 25.5L, Mean Corpuscular Hemoglobin Concent 30.9L, Red Cell Distribution Width 14.7, Platelet Count 165, Mean Platelet Volume 7.5, Neutrophils (%) (Auto) 28.9L, Lymphocytes (%) (Auto) 46.3H, Monocytes (%) (Auto) 12.7H, Eosinophils (%) (Auto ) 10.3H, Basophils (%) (Auto) 1.9, Sodium Level 140, Potassium Level 4.2, Chloride Level 103, Carbon Dioxide Level 32, Anion Gap 5, Blood Urea Nitrogen 28H, Creatinine 1.0, Estimat Glomerular Filtration Rate > 60, Glucose Level 107H , Calcium Level 9.0, Total Bilirubin 0.1L, Aspartate Amino Transf (AST/SGOT) 13L , Alanine Aminotransferase (ALT/SGPT) 18, Alkaline Phosphatase 65, Total Protein 6.4, Albumin 2.6L, Globulin 3.8, Albumin/Globulin Ratio 0.7L Height (Feet): 6 Height (Inches): 3.00 Weight (Pounds): 325 Neck: normal alignment Cardiovascular: normal rate Respiratory/Chest: lungs clear Brittney Shepard MD Sep 14, 2018 12:49
--- NOTE | 2018-09-14 13:13 | Pulmonology Progress Note ---
Assessment/Plan Problems: (1) Edema (2) CHF (congestive heart failure) (3) COPD exacerbation (4) Peripheral edema (5) Morbid obesity Assessment/Plan ASSESSMENT: The patient is a 63-year-old male, lifelong nonsmoker with a history of congestive heart failure with diastolic dysfunction, pulmonary hypertension, obesity, likely obstructive sleep apnea, known pulmonary nodules, anemia and asthma, presenting with recurrent NELLIE PROBLEM LIST: 1. Asthma without evidence of exacerbation. 2. CHF with diastolic dysfunction, 3. Bilateral lower extremity edema, likely secondary to above. 4. Known scattered bilateral subcentimeter nodules, stable on follow-up - per patient being followed up by PULMONARY @ [facility] 5. Anemia. 6. Hypertension. 7. Obesity. 8. Likely THERON. TREATMENT PLAN: 1. Optimize pulmonary hygiene/mobilize as tolerated. 2. P.r.n. O2 to keep saturations greater than 90%. 3. RTC and PRN HHN's 4. Advair 250/50 5. Observe off antibiotics and steroids 6. Monitor volumes, diuresis per cards 7. Incentive spirometry 8. Continue to follow up with [facility] Pulmonary Clinic per the patient. 9. DVT prophylaxis, heparin subcutaneous. 10. Weight-loss diet and exercise discussed again. Subjective Allergies: Coded Allergies: PENICILLINS (Verified Allergy, Unknown, 08/31/17) TRAMADOL (Verified Allergy, Unknown, 08/31/17) Subjective AFVSS O2 needs stable - 6L Less edema no SOB no cough no wheezing no FC Objective Last 24 Hour Vital Signs Date Time Temp Pulse Resp B/P (MAP) Pulse Ox O2 Delivery O2 Flow Rate FiO2 09/14/18 11:40 83 16 99 Nasal Cannula 2.0 09/14/18 11:31 81 16 98 Nasal Cannula 2.0 09/14/18 11:31 09/14/18 09:00 Room Air 2.0 09/14/18 08:23 79 16 99 Nasal Cannula 2.0 09/14/18 08:15 72 18 99 Nasal Cannula 2.0 09/14/18 08:15 76 18 99 Nasal Cannula 2.0 09/14/18 08:12 09/14/18 08:12 95 Nasal Cannula 2.0 09/14/18 08:12 Nasal Cannula 2.0 09/14/18 08:12 73 16 98 Nasal Cannula 2.0 09/14/18 08:00 98.1 70 20 121/67 (85) 99 09/14/18 04:00 98.3 70 18 121/103 (109) 99 09/14/18 03:39 88 19 99 Nasal Cannula 2.0 28 09/14/18 03:32 72 18 97 Nasal Cannula 2.0 28 09/14/18 00:11 77 18 99 Nasal Cannula 2.0 28 09/14/18 00:03 70 18 95 Nasal Cannula 2.0 28 09/14/18 00:00 98.3 87 19 133/53 (79) 98 09/13/18 22:12 74 18 99 Nasal Cannula 2.0 28 09/13/18 22:12 74 18 99 Nasal Cannula 2.0 28 09/13/18 21:00 Room Air 2.0 09/13/18 20:26 72 16 99 Nasal Cannula 2.0 28 09/13/18 20:16 66 16 98 Nasal Cannula 2.0 28 09/13/18 20:16 96 Nasal Cannula 2.0 28 09/13/18 20:16 Nasal Cannula 2.0 28 09/13/18 20:00 98.5 72 19 131/60 (83) 98 09/13/18 16:34 97.8 09/13/18 16:00 98.8 64 17 119/71 (87) 99 09/13/18 15:29 70 16 98 Nasal Cannula 2.0 28 09/13/18 15:19 65 15 98 Nasal Cannula 2.0 28 Intake and Output 09/13/18 09/14/18 18:59 06:59 Output Total 2900 ml 3400 ml Balance -2900 ml -3400 ml Output Urine Total 2900 ml 3400 ml General Appearance: WD/WN, no acute distress HEENT: normocephalic, atraumatic, anicteric, mucous membranes moist Respiratory/Chest: chest wall non-tender, lungs clear, crackles/rales Cardiovascular: normal peripheral pulses, normal rate, regular rhythm Abdomen: normal bowel sounds, soft, non tender, no organomegaly, non distended Extremities: no cyanosis, no clubbing, other - trace NELLIE Microbiology Date/Time Source Procedure Growth Status 09/12/18 04:00 Nasal Nares MRSA Culture - Final NO METHICILLIN RESISTANT STAPH AUREUS... Complete 09/12/18 04:00 Rectum - Final NO CARBAPENEM-RESISTANT ENTEROBACTERI... Complete 09/12/18 04:00 Rectum VRE Culture - Final NO VANCOMYCIN RESISTANT ENTEROCOCCUS ... Complete Laboratory Tests 09/14/18 05:35: White Blood Count 4.9, Red Blood Count 3.68L, Hemoglobin 9.4L, Hematocrit 30.3L , Mean Corpuscular Volume 82, Mean Corpuscular Hemoglobin 25.5L, Mean Corpuscular Hemoglobin Concent 30.9L, Red Cell Distribution Width 14.7, Platelet Count 165, Mean Platelet Volume 7.5, Neutrophils (%) (Auto) 28.9L, Lymphocytes (%) (Auto) 46.3H, Monocytes (%) (Auto) 12.7H, Eosinophils (%) (Auto ) 10.3H, Basophils (%) (Auto) 1.9, Sodium Level 140, Potassium Level 4.2, Chloride Level 103, Carbon Dioxide Level 32, Anion Gap 5, Blood Urea Nitrogen 28H, Creatinine 1.0, Estimat Glomerular Filtration Rate > 60, Glucose Level 107H , Calcium Level 9.0, Total Bilirubin 0.1L, Aspartate Amino Transf (AST/SGOT) 13L , Alanine Aminotransferase (ALT/SGPT) 18, Alkaline Phosphatase 65, Total Protein 6.4, Albumin 2.6L, Globulin 3.8, Albumin/Globulin Ratio 0.7L Current Medications Medications (Trade) Dose Ordered Sig/Virgen Route PRN Reason Start Time Stop Time Status Last Admin Dose Admin Acetaminophen/ Hydrocodone Bitart ([place] 10/325) 1 tab Q4H PRN ORAL For Pain 09/12/18 06:30 09/19/18 06:29 09/14/18 08:33 Albuterol/ Ipratropium (Albuterol/ Ipratropium) 3 ml Q4HRT HHN 09/12/18 11:00 09/17/18 10:59 09/14/18 11:31 Aspirin (ASA) 81 mg DAILY ORAL 09/12/18 09:00 10/12/18 08:59 09/14/18 08:32 Divalproex Sodium (Depakote ER) 750 mg BEDTIME ORAL 09/12/18 21:00 10/12/18 20:59 Ferrous Sulfate (Feosol) 325 mg DAILY ORAL 09/12/18 09:00 10/12/18 08:59 09/14/18 08:32 Furosemide (Lasix) 40 mg EVERY 12 HOURS IV 09/12/18 21:00 10/12/18 20:59 09/14/18 08:33 Heparin Sodium (Porcine) (Heparin 5000 units/ml) 5,000 units EVERY 12 HOURS SUBQ 09/12/18 21:00 10/12/18 20:59 Montelukast Sodium (Singulair) 10 mg DAILY ORAL 09/12/18 09:00 10/12/18 08:59 09/14/18 08:32 Salmeterol Xinafoate/ Fluticasone (Advair 250/50 Diskus) 1 puffs EVERY 12 HOURS INH 09/12/18 09:00 10/12/18 08:59 09/14/18 08:15 Rashad Haji MD Sep 14, 2018 13:13
[2018-09-14 16:00] VITALS: BP 128/57
[2018-09-14 20:00] VITALS: BP 117/54
[2018-09-14] MEDS: Depakote ER 500mg tab ORAL SCH (20:16)
[2018-09-15] VITALS: BP 107/48
[2018-09-15] MEDS: HYDROcodone/Acetamin 10/325 tab ORAL PRN ×5 (01:01→23:15)
[2018-09-15] MEDS: Albuterol/Ipratropium 3ml neb HHN SCH ×6 (03:00→23:52)
[2018-09-15 04:00] VITALS: BP 112/60
[2018-09-15 08:00] VITALS: BP 128/78
[2018-09-15 08:24] LABS: BASOPHILS % (AUTO) 2.5 % (0.0-2.0); EOSINOPHILS % (AUTO) 10.5 % (0.0-3.0); HEMATOCRIT 31.7 % (42.0-52.0); HEMOGLOBIN 9.9 G/DL (14.2-18.0); LYMPHOCYTES % (AUTO) 49.8 % (20.0-45.0); MEAN CORPUSCULAR VOLUME 83 FL (80-99); MONOCYTES % (AUTO) 12.6 % (1.0-10.0); NEUTROPHILS % (AUTO) 24.7 % (45.0-75.0); PLATELET COUNT 174 K/UL (150-450); RED BLOOD COUNT 3.83 M/UL (4.70-6.10); RED CELL DISTRIBUTION WIDTH 14.6 % (11.6-14.8); WHITE BLOOD COUNT 5.2 K/UL (4.8-10.8)
[2018-09-15] MEDS: Advair 250/50 Inhaler - 14 dose INH SCH ×2 (08:35→20:35)
[2018-09-15 08:53] LABS: ALANINE AMINOTRANSFERASE 19 U/L (12-78); ALBUMIN 2.6 G/DL (3.4-5.0); ALBUMIN/GLOBULIN RATIO 0.6 (1.0-2.7); ALKALINE PHOSPHATASE 68 U/L (46-116); ANION GAP 3 mmol/L (5-15); ASPARTATE AMINO TRANSFERASE 14 U/L (15-37); BILIRUBIN,TOTAL 0.1 MG/DL (0.2-1.0); BLOOD UREA NITROGEN 28 mg/dL (7-18); CALCIUM 9.4 MG/DL (8.5-10.1); CARBON DIOXIDE 34 MMOL/L (21-32); CHLORIDE 102 MMOL/L (98-107); POTASSIUM 4.5 MMOL/L (3.5-5.1); SODIUM 139 MMOL/L (136-145)
[2018-09-15] MEDS: Heparin 5000 units/ml inj SUBQ SCH ×2 (09:00→20:19)
[2018-09-15] MEDS: Aspirin Baby 81mg ORAL SCH (09:01)
[2018-09-15] MEDS: Montelukast 10mg tablet ORAL SCH (09:01)
[2018-09-15 12:00] VITALS: BP 121/72
--- NOTE | 2018-09-15 13:02 | Pulmonology Progress Note ---
Assessment/Plan Problems: (1) Edema (2) CHF (congestive heart failure) (3) COPD exacerbation (4) Peripheral edema (5) Morbid obesity Assessment/Plan ASSESSMENT: The patient is a 63-year-old male, lifelong nonsmoker with a history of congestive heart failure with diastolic dysfunction, pulmonary hypertension, obesity, likely obstructive sleep apnea, known pulmonary nodules, anemia and asthma, presenting with recurrent NELLIE PROBLEM LIST: 1. Asthma without evidence of exacerbation. 2. CHF with diastolic dysfunction, 3. Bilateral lower extremity edema, likely secondary to above. 4. Known scattered bilateral subcentimeter nodules, stable on follow-up - per patient being followed up by PULMONARY @ [facility] 5. Anemia. 6. Hypertension. 7. Obesity. 8. Likely THERON. TREATMENT PLAN: 1. Optimize pulmonary hygiene/mobilize as tolerated. 2. P.r.n. O2 to keep saturations greater than 90%. 3. RTC and PRN HHN's 4. Advair 250/50 5. Observe off antibiotics and steroids 6. Monitor volumes, diuresis per cards 7. Incentive spirometry 8. Continue to follow up with [facility] Pulmonary Clinic per the patient. 9. DVT prophylaxis, heparin subcutaneous. 10. Weight-loss diet and exercise discussed again. Subjective Allergies: Coded Allergies: PENICILLINS (Verified Allergy, Unknown, 08/31/17) TRAMADOL (Verified Allergy, Unknown, 08/31/17) Subjective AFVSS O2 needs stable - 5.3L Less edema no SOB no cough no wheezing no FC Objective Last 24 Hour Vital Signs Date Time Temp Pulse Resp B/P (MAP) Pulse Ox O2 Delivery O2 Flow Rate FiO2 09/15/18 11:14 86 16 98 Nasal Cannula 2.0 09/15/18 11:05 74 16 96 Nasal Cannula 2.0 09/15/18 09:00 Room Air 2.0 09/15/18 08:35 79 16 100 Nasal Cannula 2.0 09/15/18 08:35 87 16 100 Nasal Cannula 2.0 09/15/18 08:00 98.2 60 20 128/78 (95) 100 09/15/18 07:22 82 18 99 Nasal Cannula 2.0 09/15/18 07:21 Nasal Cannula 2.0 09/15/18 07:21 97 Nasal Cannula 2.0 09/15/18 07:14 67 18 98 Nasal Cannula 2.0 28 09/15/18 04:00 98.4 65 19 112/60 (77) 97 09/15/18 03:36 Nasal Cannula 2.0 28 09/15/18 03:35 Nasal Cannula 2.0 28 09/15/18 00:00 98.4 77 19 107/48 (67) 96 09/14/18 23:16 78 20 99 Nasal Cannula 2.0 28 09/14/18 23:06 77 20 99 Nasal Cannula 2.0 28 09/14/18 21:00 Room Air 2.0 09/14/18 20:09 79 20 99 Nasal Cannula 2.0 28 09/14/18 20:08 79 20 100 Nasal Cannula 2.0 28 09/14/18 20:00 98.4 71 18 117/54 (75) 99 09/14/18 19:53 80 20 98 Nasal Cannula 2.0 28 09/14/18 19:52 70 20 98 Nasal Cannula 2.0 28 09/14/18 19:52 Nasal Cannula 2.0 09/14/18 19:51 98 Nasal Cannula 2.0 09/14/18 16:06 80 16 99 Nasal Cannula 2.0 28 09/14/18 16:00 98.6 66 20 128/57 (80) 98 09/14/18 15:56 28 09/14/18 15:56 85 16 98 Nasal Cannula 2.0 Intake and Output 09/14/18 09/15/18 19:00 07:00 Intake Total 1085 ml Output Total 2700 ml 3600 ml Balance -1615 ml -3600 ml Intake Oral 700 ml Free Water 160 ml Tube Feeding 225 ml Output Urine Total 2700 ml 3600 ml # Voids 1 General Appearance: WD/WN, no acute distress HEENT: normocephalic, atraumatic, anicteric, mucous membranes moist Respiratory/Chest: chest wall non-tender, lungs clear, normal breath sounds, no respiratory distress, no accessory muscle use Cardiovascular: normal peripheral pulses, normal rate, regular rhythm Abdomen: normal bowel sounds, soft, non tender, no organomegaly, non distended Extremities: no cyanosis, no clubbing, other - Trace NELLIE Laboratory Tests 09/15/18 06:43: White Blood Count 5.2, Red Blood Count 3.83L, Hemoglobin 9.9L, Hematocrit 31.7L , Mean Corpuscular Volume 83, Mean Corpuscular Hemoglobin 25.9L, Mean Corpuscular Hemoglobin Concent 31.3L, Red Cell Distribution Width 14.6, Platelet Count 174, Mean Platelet Volume 7.9, Neutrophils (%) (Auto) 24.7L, Lymphocytes (%) (Auto) 49.8H, Monocytes (%) (Auto) 12.6H, Eosinophils (%) (Auto ) 10.5H, Basophils (%) (Auto) 2.5H, Sodium Level 139, Potassium Level 4.5, Chloride Level 102, Carbon Dioxide Level 34H, Anion Gap 3L, Blood Urea Nitrogen 28H, Creatinine 1.0, Estimat Glomerular Filtration Rate > 60, Glucose Level 86, Calcium Level 9.4, Total Bilirubin 0.1L, Aspartate Amino Transf (AST/SGOT) 14L, Alanine Aminotransferase (ALT/SGPT) 19, Alkaline Phosphatase 68, Total Protein 6.6, Albumin 2.6L, Globulin 4.0, Albumin/Globulin Ratio 0.6L Current Medications Medications (Trade) Dose Ordered Sig/Virgen Route PRN Reason Start Time Stop Time Status Last Admin Dose Admin Acetaminophen/ Hydrocodone Bitart (Brinson 10/325) 1 tab Q4H PRN ORAL For Pain 09/12/18 06:30 09/19/18 06:29 09/15/18 06:53 Albuterol/ Ipratropium (Albuterol/ Ipratropium) 3 ml Q4HRT HHN 09/12/18 11:00 09/17/18 10:59 09/15/18 11:13 Aspirin (ASA) 81 mg DAILY ORAL 09/12/18 09:00 10/12/18 08:59 09/15/18 09:01 Divalproex Sodium (Depakote ER) 750 mg BEDTIME ORAL 09/12/18 21:00 10/12/18 20:59 Ferrous Sulfate (Feosol) 325 mg DAILY ORAL 09/12/18 09:00 10/12/18 08:59 09/15/18 09:01 Furosemide (Lasix) 40 mg EVERY 12 HOURS IV 09/12/18 21:00 10/12/18 20:59 09/15/18 09:01 Heparin Sodium (Porcine) (Heparin 5000 units/ml) 5,000 units EVERY 12 HOURS SUBQ 09/12/18 21:00 10/12/18 20:59 Montelukast Sodium (Singulair) 10 mg DAILY ORAL 09/12/18 09:00 10/12/18 08:59 09/15/18 09:01 Salmeterol Xinafoate/ Fluticasone (Advair 250/50 Diskus) 1 puffs EVERY 12 HOURS INH 09/12/18 09:00 10/12/18 08:59 09/15/18 08:35 Rashad Haji MD Sep 15, 2018 13:02
--- NOTE | 2018-09-15 13:40 | Cardiac Electrophysiology PN ---
Assessment/Plan Assessment/Plan 1. Accelerated hypertension. Avoid beta-marlyn in view of active cocaine use. On Lasix 40 mg IV two times daily. 2. Severe bilateral lower extremity edema. Echocardiogram EF of 60% with diastolic dysfunction. 3. Morbid obesity. 4. COPD. 5. Asthma, on Advair. 6. Cocaine use DW RN Subjective Subjective Diuresing well with IV Lasix No CP or SOB Objective Last 24 Hour Vital Signs Date Time Temp Pulse Resp B/P (MAP) Pulse Ox O2 Delivery O2 Flow Rate FiO2 09/15/18 12:00 97.6 68 20 121/72 (88) 99 09/15/18 11:14 86 16 98 Nasal Cannula 2.0 28 09/15/18 11:05 74 16 96 Nasal Cannula 2.0 28 09/15/18 09:00 Room Air 2.0 09/15/18 08:35 79 16 100 Nasal Cannula 2.0 28 09/15/18 08:35 87 16 100 Nasal Cannula 2.0 28 09/15/18 08:00 98.2 60 20 128/78 (95) 100 09/15/18 07:22 82 18 99 Nasal Cannula 2.0 28 09/15/18 07:21 Nasal Cannula 2.0 28 09/15/18 07:21 97 Nasal Cannula 2.0 28 09/15/18 07:14 67 18 98 Nasal Cannula 2.0 28 09/15/18 04:00 98.4 65 19 112/60 (77) 97 09/15/18 03:36 Nasal Cannula 2.0 28 09/15/18 03:35 Nasal Cannula 2.0 28 09/15/18 00:00 98.4 77 19 107/48 (67) 96 09/14/18 23:16 78 20 99 Nasal Cannula 2.0 28 09/14/18 23:06 77 20 99 Nasal Cannula 2.0 28 09/14/18 21:00 Room Air 2.0 09/14/18 20:09 79 20 99 Nasal Cannula 2.0 28 09/14/18 20:08 79 20 100 Nasal Cannula 2.0 28 09/14/18 20:00 98.4 71 18 117/54 (75) 99 09/14/18 19:53 80 20 98 Nasal Cannula 2.0 28 09/14/18 19:52 70 20 98 Nasal Cannula 2.0 28 09/14/18 19:52 Nasal Cannula 2.0 28 09/14/18 19:51 98 Nasal Cannula 2.0 28 09/14/18 16:06 80 16 99 Nasal Cannula 2.0 28 09/14/18 16:00 98.6 66 20 128/57 (80) 98 09/14/18 15:56 28 09/14/18 15:56 85 16 98 Nasal Cannula 2.0 28 Intake and Output 09/14/18 09/15/18 19:00 07:00 Intake Total 1085 ml Output Total 2700 ml 3600 ml Balance -1615 ml -3600 ml Intake Oral 700 ml Free Water 160 ml Tube Feeding 225 ml Output Urine Total 2700 ml 3600 ml # Voids 1 Laboratory Tests Test 09/15/18 06:43 White Blood Count 5.2 K/UL (4.8-10.8) Red Blood Count 3.83 M/UL (4.70-6.10) L Hemoglobin 9.9 G/DL (14.2-18.0) L Hematocrit 31.7 % (42.0-52.0) L Mean Corpuscular Volume 83 FL (80-99) Mean Corpuscular Hemoglobin 25.9 PG (27.0-31.0) L Mean Corpuscular Hemoglobin Concent 31.3 G/DL (32.0-36.0) L Red Cell Distribution Width 14.6 % (11.6-14.8) Platelet Count 174 K/UL (150-450) Mean Platelet Volume 7.9 FL (6.5-10.1) Neutrophils (%) (Auto) 24.7 % (45.0-75.0) L Lymphocytes (%) (Auto) 49.8 % (20.0-45.0) H Monocytes (%) (Auto) 12.6 % (1.0-10.0) H Eosinophils (%) (Auto) 10.5 % (0.0-3.0) H Basophils (%) (Auto) 2.5 % (0.0-2.0) H Sodium Level 139 MMOL/L (136-145) Potassium Level 4.5 MMOL/L (3.5-5.1) Chloride Level 102 MMOL/L (98-107) Carbon Dioxide Level 34 MMOL/L (21-32) H Anion Gap 3 mmol/L (5-15) L Blood Urea Nitrogen 28 mg/dL (7-18) H Creatinine 1.0 MG/DL (0.55-1.30) Estimat Glomerular Filtration Rate > 60 mL/min (>60) Glucose Level 86 MG/DL (74-106) Calcium Level 9.4 MG/DL (8.5-10.1) Total Bilirubin 0.1 MG/DL (0.2-1.0) L Aspartate Amino Transf (AST/SGOT) 14 U/L (15-37) L Alanine Aminotransferase (ALT/SGPT) 19 U/L (12-78) Alkaline Phosphatase 68 U/L (46-116) Total Protein 6.6 G/DL (6.4-8.2) Albumin 2.6 G/DL (3.4-5.0) L Globulin 4.0 g/dL Albumin/Globulin Ratio 0.6 (1.0-2.7) L Objective HEAD AND NECK: No JVD LUNGS: Clear. CARDIOVASCULAR: Regular S1 and S2 with no gallop or murmur. ABDOMEN: Soft. EXTREMITIES: 2+ bilateral pitting edema. Prosper Crum MD Sep 15, 2018 13:40
[2018-09-15 16:00] VITALS: BP 119/74
--- NOTE | 2018-09-15 16:56 | Consultation ---
History of Present Illness General Date patient seen: Sep 15, 2018 Chief Complaint: Edema Present Illness Allergies: Coded Allergies: PENICILLINS (Verified Allergy, Unknown, 08/31/17) TRAMADOL (Verified Allergy, Unknown, 08/31/17) Medication History Scheduled Aspirin* (Aspirin*), 81 MG ORAL DAILY, (Reported) Benazepril Hcl* (Benazepril Hcl*), 10 MG ORAL BID, (Reported) Divalproex Sodium* (Depakote Er*), 750 MG ORAL BEDTIME, (Reported) Fluticasone/Salmeterol (Advair 250-50 Diskus), 1 PUFF INH EVERY 12 HOURS, ( Reported) Furosemide* (Lasix*), 20 MG ORAL BID Montelukast Sodium* (Singulair*), 10 MG ORAL DAILY, (Reported) Pantoprazole (Pantoprazole), 40 MG ORAL DAILY, (Reported) Simvastatin (Zocor), 20 MG ORAL BEDTIME, (Reported) Scheduled PRN Albuterol Sulfate* (Albuterol Sulfate Hhn*), 3 ML INH Q6H PRN for Shortness of Breath, (Reported) Hydrocodone Bit/Acetaminophen 10-325* ([place] 10-325*), 1 TAB ORAL Q4H PRN for For Pain, (Reported) Miscellaneous Medications Ferrous Sulfate (Iron), Unknown Dose PO, (Reported) Discontinued Medications Fluticasone/Salmeterol (Advair 250-50 Diskus), 1 PUFF INH EVERY 12 HOURS, ( Reported) Discontinued Reason: Therapy completed Furosemide* (Lasix*), 40 MG ORAL DAILY, (Reported) Discontinued Reason: Therapy completed Furosemide* (Lasix*), 10 MG ORAL TWICE A DAY, (Reported) Discontinued Reason: Therapy completed Hydrocodone Bit/Acetaminophen 10-325* ([place] 10-325*), 1 TAB ORAL Q4H PRN for For Pain, (Reported) Discontinued Reason: Therapy completed Prednisolone* (Prelone*), 40 MG ORAL DAILY, (Reported) Discontinued Reason: Therapy completed Simvastatin (Zocor), 20 MG ORAL BEDTIME, (Reported) Discontinued Reason: Therapy completed Patient History Healthcare decision maker Resuscitation status Full Code Advanced Directive on File No Physical Exam Last 24 Hour Vital Signs Date Time Temp Pulse Resp B/P (MAP) Pulse Ox O2 Delivery O2 Flow Rate FiO2 09/15/18 16:00 98.8 66 20 119/74 (89) 98 09/15/18 15:29 83 18 99 Nasal Cannula 2.0 28 09/15/18 15:23 67 16 97 Nasal Cannula 2.0 28 09/15/18 12:00 97.6 68 20 121/72 (88) 99 09/15/18 11:14 86 16 98 Nasal Cannula 2.0 28 09/15/18 11:05 74 16 96 Nasal Cannula 2.0 28 09/15/18 09:00 Room Air 2.0 09/15/18 08:35 79 16 100 Nasal Cannula 2.0 28 09/15/18 08:35 87 16 100 Nasal Cannula 2.0 28 09/15/18 08:00 98.2 60 20 128/78 (95) 100 09/15/18 07:22 82 18 99 Nasal Cannula 2.0 28 09/15/18 07:21 Nasal Cannula 2.0 28 09/15/18 07:21 97 Nasal Cannula 2.0 28 09/15/18 07:14 67 18 98 Nasal Cannula 2.0 28 09/15/18 04:00 98.4 65 19 112/60 (77) 97 09/15/18 03:36 Nasal Cannula 2.0 28 09/15/18 03:35 Nasal Cannula 2.0 28 09/15/18 00:00 98.4 77 19 107/48 (67) 96 09/14/18 23:16 78 20 99 Nasal Cannula 2.0 28 09/14/18 23:06 77 20 99 Nasal Cannula 2.0 28 09/14/18 21:00 Room Air 2.0 09/14/18 20:09 79 20 99 Nasal Cannula 2.0 28 09/14/18 20:08 79 20 100 Nasal Cannula 2.0 28 09/14/18 20:00 98.4 71 18 117/54 (75) 99 09/14/18 19:53 80 20 98 Nasal Cannula 2.0 28 09/14/18 19:52 70 20 98 Nasal Cannula 2.0 28 09/14/18 19:52 Nasal Cannula 2.0 28 09/14/18 19:51 98 Nasal Cannula 2.0 28 Intake and Output 09/14/18 09/15/18 18:59 06:59 Intake Total 1085 ml Output Total 2700 ml 3600 ml Balance -1615 ml -3600 ml Intake Oral 700 ml Free Water 160 ml Tube Feeding 225 ml Output Urine Total 2700 ml 3600 ml # Voids 1 Laboratory Tests Test 09/15/18 06:43 White Blood Count 5.2 K/UL (4.8-10.8) Red Blood Count 3.83 M/UL (4.70-6.10) L Hemoglobin 9.9 G/DL (14.2-18.0) L Hematocrit 31.7 % (42.0-52.0) L Mean Corpuscular Volume 83 FL (80-99) Mean Corpuscular Hemoglobin 25.9 PG (27.0-31.0) L Mean Corpuscular Hemoglobin Concent 31.3 G/DL (32.0-36.0) L Red Cell Distribution Width 14.6 % (11.6-14.8) Platelet Count 174 K/UL (150-450) Mean Platelet Volume 7.9 FL (6.5-10.1) Neutrophils (%) (Auto) 24.7 % (45.0-75.0) L Lymphocytes (%) (Auto) 49.8 % (20.0-45.0) H Monocytes (%) (Auto) 12.6 % (1.0-10.0) H Eosinophils (%) (Auto) 10.5 % (0.0-3.0) H Basophils (%) (Auto) 2.5 % (0.0-2.0) H Sodium Level 139 MMOL/L (136-145) Potassium Level 4.5 MMOL/L (3.5-5.1) Chloride Level 102 MMOL/L (98-107) Carbon Dioxide Level 34 MMOL/L (21-32) H Anion Gap 3 mmol/L (5-15) L Blood Urea Nitrogen 28 mg/dL (7-18) H Creatinine 1.0 MG/DL (0.55-1.30) Estimat Glomerular Filtration Rate > 60 mL/min (>60) Glucose Level 86 MG/DL (74-106) Calcium Level 9.4 MG/DL (8.5-10.1) Total Bilirubin 0.1 MG/DL (0.2-1.0) L Aspartate Amino Transf (AST/SGOT) 14 U/L (15-37) L Alanine Aminotransferase (ALT/SGPT) 19 U/L (12-78) Alkaline Phosphatase 68 U/L (46-116) Total Protein 6.6 G/DL (6.4-8.2) Albumin 2.6 G/DL (3.4-5.0) L Globulin 4.0 g/dL Albumin/Globulin Ratio 0.6 (1.0-2.7) L Height (Feet): 6 Height (Inches): 3.00 Weight (Pounds): 312 Medications Current Medications Medications (Trade) Dose Ordered Sig/Virgen Route PRN Reason Start Time Stop Time Status Last Admin Dose Admin Acetaminophen/ Hydrocodone Bitart ([place] 10/325) 1 tab Q4H PRN ORAL For Pain 09/12/18 06:30 09/19/18 06:29 09/15/18 13:14 Albuterol/ Ipratropium (Albuterol/ Ipratropium) 3 ml Q4HRT HHN 09/12/18 11:00 09/17/18 10:59 09/15/18 15:49 Aspirin (ASA) 81 mg DAILY ORAL 09/12/18 09:00 10/12/18 08:59 09/15/18 09:01 Divalproex Sodium (Depakote ER) 750 mg BEDTIME ORAL 09/12/18 21:00 10/12/18 20:59 Ferrous Sulfate (Feosol) 325 mg DAILY ORAL 09/12/18 09:00 10/12/18 08:59 09/15/18 09:01 Furosemide (Lasix) 40 mg EVERY 12 HOURS IV 09/12/18 21:00 10/12/18 20:59 09/15/18 09:01 Heparin Sodium (Porcine) (Heparin 5000 units/ml) 5,000 units EVERY 12 HOURS SUBQ 09/12/18 21:00 10/12/18 20:59 Montelukast Sodium (Singulair) 10 mg DAILY ORAL 09/12/18 09:00 10/12/18 08:59 09/15/18 09:01 Salmeterol Xinafoate/ Fluticasone (Advair 250/50 Diskus) 1 puffs EVERY 12 HOURS INH 09/12/18 09:00 10/12/18 08:59 09/15/18 08:35 Assessment/Plan Assessment/Plan Hematology Consult REQ MD: Ion Shepard RFC: Anemia DOS: 09/15/18 ID 63-year-old M presents ED for evaluation. Complaining of right-sided rib pain, shortness of breath, bilateral leg swelling. States he fell yesterday at home. Denies hitting his head or LOC. Complaining of pain to the right side of ribs. 8 out of 10, sharp, nonradiating. Also complaining of shortness of breath. History of asthma. History of CHF. States he was placed on 10 mg of Lasix which she states is not helping. Associated leg swelling. Denies pain. Denies fevers or chills. No other aggravating relieving factors. Denies any other associated symptoms. Seen by [facility], started on iv lasix, continues to have anemia Allergies: Coded Allergies: PENICILLINS (Verified Allergy, Unknown, 08/31/17) TRAMADOL (Verified Allergy, Unknown, 08/31/17) Patient History Past Medical History: HTN, asthma, COPD Past Surgical History: none Pertinent Family History: none Social History: Denies: smoking, alcohol use, drug use Immunizations: UTD Reviewed Nursing Documentation: PMH: Agreed; PSxH: Agreed Nursing Documentation-PMH Hx Cardiac Problems: Yes - CHF Hx Hypertension: Yes Hx Asthma: Yes Hx COPD: Yes Hx Cancer: No Hx Gastrointestinal Problems: No Hx Neurological Problems: No ER ROS - General Review of Systems All Other Systems: negative except mentioned in HPI ER Physical Exam - General Physical Exam Last 24 Hour Vital Signs Date Time Temp Pulse Resp B/P (MAP) Pulse Ox O2 Delivery O2 Flow Rate FiO2 08/27/18 04:00 55 08/27/18 04:00 98.0 64 20 137/72 (93) 97 08/27/18 02:02 Nasal Cannula 2.0 28 08/27/18 02:01 Nasal Cannula 2.0 28 08/27/18 00:00 98.6 65 24 106/74 (85) 100 08/27/18 00:00 61 08/26/18 21:02 67 18 96 Nasal Cannula 2.0 28 08/26/18 21:00 Nasal Cannula 2.0 Nasal Cannula 2.0 Nasal Cannula 2.0 08/26/18 20:52 Nasal Cannula 2.0 28 08/26/18 20:52 68 18 98 Nasal Cannula 2.0 28 08/26/18 20:52 98 Nasal Cannula 2.0 28 08/26/18 20:52 68 18 98 Room Air 21 08/26/18 20:52 68 18 98 Nasal Cannula 2.0 28 08/26/18 20:52 68 18 98 Room Air 21 08/26/18 20:00 75 08/26/18 20:00 98.4 67 22 122/73 (89) 100 08/26/18 17:59 106/53 08/26/18 16:00 62 08/26/18 16:00 97.0 62 19 106/53 (70) 100 08/26/18 13:45 56 18 95 Nasal Cannula 2.0 28 08/26/18 13:32 61 18 96 Nasal Cannula 2.0 28 08/26/18 12:00 97.0 56 19 129/69 (89) 99 08/26/18 12:00 58 08/26/18 09:18 117/57 08/26/18 09:00 Nasal Cannula 2.0 Nasal Cannula 2.0 Nasal Cannula 2.0 08/26/18 08:53 58 18 97 Nasal Cannula 2.0 28 08/26/18 08:51 58 18 97 Nasal Cannula 2.0 28 08/26/18 08:00 55 08/26/18 08:00 97.2 72 19 117/57 (77) 99 08/26/18 07:45 95 Nasal Cannula 2.0 28 08/26/18 07:45 Nasal Cannula 2.0 28 08/26/18 07:45 56 18 95 Nasal Cannula 2.0 28 08/26/18 07:45 56 18 95 Nasal Cannula 28 General: nad Eyes: bilateral eye PERRL Pulm: speaking full sentences, wheezing, other - R sided rib pain Cardiovascular: regular rate, rhythm, no edema Gastrointestinal: normal bowel sounds, non tender, s Genitourinary: normal inspection, no CVA tenderness Musculoskeletal: back normal, gait/station normal Neurologic: alert, oriented x3, responsive Psychiatric: judgement/insight normal, memory normal, mood/affect normal, no suicidal/homicidal ideation Skin: normal color, no rash Lymphatic: no adenopathy Labs: have been reviewed #. Anemia due to underlying iron deficiency. The patient on prior admission given IV iron. --> ferritin is reviewed and is 82, TIBC is approx 200, likely iron depleted --> cont to monitor and trend cbc --> Hgb goal >7, transfuse prn. --> Cont po iron daily --> no e/o hemolysis noted #. Anemia due to hemodilution with chf overload --> as per cardiology, diuresis as required --> seen by Dr. Crum, on lasix iv #. Borderline mediastinal lymphadenopathy, nonspecific etiology. Multiple small right lung nodules. --> Repeat CT scan in 6 to 12 months. --> f/u with [facility] #. Leukopenia in the past. Hepatitis and HIV is negative. --> Ultrasound showed no acute findings. --> Medications have been reviewed. --> Cont to monitor for improvement. --> given neupogen if anc <1000 #. Congestive heart failure exacerbation versus asthma. as per Dr. Crum. --> cards and pulm recs reviewed --> diuresis as per goal #. Chronic venous stasis lower extremities. #. Chronic obstructive pulmonary disease exacerbation. initially with shortness of breath. --> as per pul, hold off on steriods this admission #. Psych disorder as per Dr. Norman (seen before) #. DVT prophylaxis with heparin. Appreciate consultation greatly! Kade Fermin MD Sep 15, 2018 16:56
[2018-09-15 17:40] LABS: % IRON SATURATION 22 % (15-50); IRON 46 ug/dL (50-175); TOTAL IRON BINDING CAPACITY 213 ug/dL (250-450)
[2018-09-15 18:08] LABS: FERRITIN 234 NG/ML (8-388)
[2018-09-15 20:00] VITALS: BP 114/53
[2018-09-15] MEDS: Depakote ER 500mg tab ORAL SCH (20:19)
--- NOTE | 2018-09-15 21:23 | General Progress Note ---
Assessment/Plan Problem List: (1) Edema ICD Codes: R60.9 - Edema, unspecified SNOMED: 993221777, 100280437 (2) Pain ICD Codes: R52 - Pain, unspecified SNOMED: 42676357 (3) Anemia, iron deficiency ICD Codes: D50.9 - Iron deficiency anemia, unspecified SNOMED: 23525668 (4) CHF exacerbation ICD Codes: I50.9 - Heart failure, unspecified SNOMED: 32975746 (5) Cocaine abuse ICD Codes: F14.10 - Cocaine abuse, uncomplicated SNOMED: 00619748 (6) Asthma exacerbation ICD Codes: J45.901 - Unspecified asthma with (acute) exacerbation SNOMED: 875908244 Qualifiers: Qualified Codes: J45.21 - Mild intermittent asthma with (acute) exacerbation (7) Morbid obesity ICD Codes: E66.01 - Morbid (severe) obesity due to excess calories SNOMED: 910861968 (8) Edema ICD Codes: R60.9 - Edema, unspecified SNOMED: 259032464, 213721723 (9) CHF (congestive heart failure) ICD Codes: I50.9 - Heart failure, unspecified SNOMED: 12776145 (10) Peripheral edema ICD Codes: R60.9 - Edema, unspecified SNOMED: 325208815 (11) COPD exacerbation ICD Codes: J44.1 - Chronic obstructive pulmonary disease with (acute) exacerbation SNOMED: 201528060 Status: progressing Assessment/Plan no wheezing afebrile obesity fluid management per renal and cardiology chf improving ashma /copd exac improving Subjective ROS Limited/Unobtainable: Yes Allergies: Coded Allergies: PENICILLINS (Verified Allergy, Unknown, 08/31/17) TRAMADOL (Verified Allergy, Unknown, 08/31/17) Subjective leg pain some cough Objective Last 24 Hour Vital Signs Date Time Temp Pulse Resp B/P (MAP) Pulse Ox O2 Delivery O2 Flow Rate FiO2 09/15/18 20:42 78 20 97 Nasal Cannula 2.0 09/15/18 20:40 67 20 97 Nasal Cannula 2.0 09/15/18 20:31 Nasal Cannula 2.0 09/15/18 20:31 78 20 98 Nasal Cannula 2.0 09/15/18 20:31 76 20 98 Nasal Cannula 2.0 09/15/18 20:30 98 Nasal Cannula 2.0 28 09/15/18 20:00 97.0 95 18 114/53 (73) 100 09/15/18 16:00 98.8 66 20 119/74 (89) 98 09/15/18 15:29 83 18 99 Nasal Cannula 2.0 28 09/15/18 15:23 67 16 97 Nasal Cannula 2.0 28 09/15/18 12:00 97.6 68 20 121/72 (88) 99 09/15/18 11:14 86 16 98 Nasal Cannula 2.0 28 09/15/18 11:05 74 16 96 Nasal Cannula 2.0 28 09/15/18 09:00 Room Air 2.0 09/15/18 08:35 79 16 100 Nasal Cannula 2.0 09/15/18 08:35 87 16 100 Nasal Cannula 2.0 28 09/15/18 08:00 98.2 60 20 128/78 (95) 100 09/15/18 07:22 82 18 99 Nasal Cannula 2.0 28 09/15/18 07:21 Nasal Cannula 2.0 09/15/18 07:21 97 Nasal Cannula 2.0 09/15/18 07:14 67 18 98 Nasal Cannula 2.0 28 09/15/18 04:00 98.4 65 19 112/60 (77) 97 09/15/18 03:36 Nasal Cannula 2.0 09/15/18 03:35 Nasal Cannula 2.0 28 09/15/18 00:00 98.4 77 19 107/48 (67) 96 09/14/18 23:16 78 20 99 Nasal Cannula 2.0 09/14/18 23:06 77 20 99 Nasal Cannula 2.0 Intake and Output 09/14/18 09/15/18 18:59 06:59 Intake Total 1085 ml Output Total 2700 ml 3600 ml Balance -1615 ml -3600 ml Intake Oral 700 ml Free Water 160 ml Tube Feeding 225 ml Output Urine Total 2700 ml 3600 ml # Voids 1 Laboratory Tests 09/15/18 06:43: White Blood Count 5.2, Red Blood Count 3.83L, Hemoglobin 9.9L, Hematocrit 31.7L , Mean Corpuscular Volume 83, Mean Corpuscular Hemoglobin 25.9L, Mean Corpuscular Hemoglobin Concent 31.3L, Red Cell Distribution Width 14.6, Platelet Count 174, Mean Platelet Volume 7.9, Neutrophils (%) (Auto) 24.7L, Lymphocytes (%) (Auto) 49.8H, Monocytes (%) (Auto) 12.6H, Eosinophils (%) (Auto ) 10.5H, Basophils (%) (Auto) 2.5H, Sodium Level 139, Potassium Level 4.5, Chloride Level 102, Carbon Dioxide Level 34H, Anion Gap 3L, Blood Urea Nitrogen 28H, Creatinine 1.0, Estimat Glomerular Filtration Rate > 60, Glucose Level 86, Calcium Level 9.4, Iron Level 46L, Total Iron Binding Capacity 213L, Percent Iron Saturation 22, Unsaturated Iron Binding 167, Ferritin 234, Total Bilirubin 0.1L, Aspartate Amino Transf (AST/SGOT) 14L, Alanine Aminotransferase (ALT/SGPT ) 19, Alkaline Phosphatase 68, Total Protein 6.6, Albumin 2.6L, Globulin 4.0, Albumin/Globulin Ratio 0.6L Height (Feet): 6 Height (Inches): 3.00 Weight (Pounds): 312 Cardiovascular: normal rate Respiratory/Chest: lungs clear Abdomen: soft Brittney Shepard MD Sep 15, 2018 21:23
[2018-09-16] VITALS: BP 112/56
[2018-09-16] MEDS: HYDROcodone/Acetamin 10/325 tab ORAL PRN ×5 (03:03→19:37)
[2018-09-16 04:00] VITALS: BP 118/59
[2018-09-16] MEDS: Albuterol/Ipratropium 3ml neb HHN SCH ×6 (04:30→23:41)
[2018-09-16 08:00] VITALS: BP 120/57
[2018-09-16] MEDS: Advair 250/50 Inhaler - 14 dose INH SCH ×2 (08:38→23:41)
[2018-09-16] MEDS: Heparin 5000 units/ml inj SUBQ SCH ×2 (09:00→20:17)
[2018-09-16] MEDS: Montelukast 10mg tablet ORAL SCH (09:19)
[2018-09-16] MEDS: Aspirin Baby 81mg ORAL SCH (09:20)
--- NOTE | 2018-09-16 11:04 | Cardiac Electrophysiology PN ---
Assessment/Plan Assessment/Plan 1. Accelerated hypertension. Avoid beta-marlyn in view of active cocaine use. On Lasix 40 mg IV bid. 2. Severe bilateral lower extremity edema. EF 60% with diastolic dysfunction. 3. Morbid obesity. 4. COPD. 5. Asthma, on Advair. 6. 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 No CP or SOB. Off tele Objective Last 24 Hour Vital Signs Date Time Temp Pulse Resp B/P (MAP) Pulse Ox O2 Delivery O2 Flow Rate FiO2 09/16/18 10:59 55 20 99 Nasal Cannula 2.0 28 09/16/18 09:00 Room Air 2.0 09/16/18 08:40 71 20 98 Nasal Cannula 2.0 28 09/16/18 08:40 72 20 98 Nasal Cannula 2.0 28 09/16/18 08:30 74 20 99 Nasal Cannula 2.0 28 09/16/18 08:18 98 Nasal Cannula 2.0 28 09/16/18 08:18 72 22 98 Nasal Cannula 2.0 09/16/18 08:18 Nasal Cannula 2.0 09/16/18 08:00 98.2 61 19 120/57 (78) 100 09/16/18 07:23 97.0 09/16/18 04:00 97.0 56 18 118/59 (78) 100 09/16/18 03:10 59 20 97 Nasal Cannula 2.0 28 09/16/18 03:10 57 20 97 Nasal Cannula 2.0 09/16/18 00:02 71 20 98 Nasal Cannula 2.0 09/16/18 00:00 97.9 70 18 112/56 (74) 98 09/15/18 23:51 68 20 97 Nasal Cannula 2.0 09/15/18 21:00 Room Air 2.0 09/15/18 20:42 78 20 97 Nasal Cannula 2.0 09/15/18 20:40 67 20 97 Nasal Cannula 2.0 09/15/18 20:31 Nasal Cannula 2.0 28 09/15/18 20:31 78 20 98 Nasal Cannula 2.0 28 09/15/18 20:31 76 20 98 Nasal Cannula 2.0 28 09/15/18 20:30 98 Nasal Cannula 2.0 09/15/18 20:00 97.0 95 18 114/53 (73) 100 09/15/18 16:00 98.8 66 20 119/74 (89) 98 09/15/18 15:29 83 18 99 Nasal Cannula 2.0 28 09/15/18 15:23 67 16 97 Nasal Cannula 2.0 28 09/15/18 12:00 97.6 68 20 121/72 (88) 99 09/15/18 11:14 86 16 98 Nasal Cannula 2.0 28 09/15/18 11:05 74 16 96 Nasal Cannula 2.0 28 Intake and Output 09/15/18 09/16/18 19:00 07:00 Intake Total 1460 ml Output Total 4500 ml 2250 ml Balance -3040 ml -2250 ml Intake Oral 1460 ml Output Urine Total 4500 ml 2250 ml # Voids 3 6 # Bowel Movements 1 Objective HEAD AND NECK: No JVD LUNGS: Clear. CARDIOVASCULAR: Regular S1 and S2 with no gallop or murmur. ABDOMEN: Soft. EXTREMITIES: 2+ bilateral pitting edema. Prosper Crum MD Sep 16, 2018 11:04
[2018-09-16 12:00] VITALS: BP 143/62
[2018-09-16 16:00] VITALS: BP 117/54
[2018-09-16] MEDS ORDERED: Azithromycin 250mg tab ORAL SCH (16:15)
--- NOTE | 2018-09-16 16:17 | Pulmonology Progress Note ---
Assessment/Plan Problems: (1) Asthma exacerbation (2) Edema (3) CHF (congestive heart failure) (4) COPD exacerbation (5) Peripheral edema (6) Morbid obesity Assessment/Plan ASSESSMENT: The patient is a 63-year-old male, lifelong nonsmoker with a history of congestive heart failure with diastolic dysfunction, pulmonary hypertension, obesity, likely obstructive sleep apnea, known pulmonary nodules, anemia and asthma, presenting with recurrent NELLIE PROBLEM LIST: 1. Asthma with exacerbation. 2. CHF with diastolic dysfunction, 3. Bilateral lower extremity edema, likely secondary to above. 4. Known scattered bilateral subcentimeter nodules, stable on follow-up - per patient being followed up by PULMONARY @ [facility] 5. Anemia. 6. Hypertension. 7. Obesity. 8. Likely THERON. TREATMENT PLAN: 1. Optimize pulmonary hygiene/mobilize as tolerated. 2. P.r.n. O2 to keep saturations greater than 90%. 3. RTC and PRN HHN's 4. Advair 250/50 5. Start Pred 40 (D1) and PO Azithro (D1), F/U sputum Cx and CXR 6. Monitor volumes, diuresis per cards 7. Incentive spirometry 8. Continue to follow up with [facility] Pulmonary Clinic per the patient. 9. DVT prophylaxis, heparin subcutaneous. 10. Weight-loss diet and exercise discussed again. Subjective Allergies: Coded Allergies: PENICILLINS (Verified Allergy, Unknown, 08/31/17) TRAMADOL (Verified Allergy, Unknown, 08/31/17) Subjective AFVSS O2 needs stable - 5.3L Less edema no SOB inc congestion and cough no wheezing no FC Objective Last 24 Hour Vital Signs Date Time Temp Pulse Resp B/P (MAP) Pulse Ox O2 Delivery O2 Flow Rate FiO2 09/16/18 16:00 98.2 62 21 117/54 (75) 98 09/16/18 15:56 73 20 98 Nasal Cannula 2.0 28 09/16/18 15:47 98.4 09/16/18 15:31 65 20 98 Nasal Cannula 2.0 28 09/16/18 12:00 98.4 63 20 143/62 (89) 96 09/16/18 11:05 61 20 99 Nasal Cannula 2.0 28 09/16/18 10:59 55 20 99 Nasal Cannula 2.0 28 09/16/18 09:00 Room Air 2.0 09/16/18 08:40 71 20 98 Nasal Cannula 2.0 28 09/16/18 08:40 72 20 98 Nasal Cannula 2.0 28 09/16/18 08:30 74 20 99 Nasal Cannula 2.0 09/16/18 08:18 98 Nasal Cannula 2.0 28 09/16/18 08:18 72 22 98 Nasal Cannula 2.0 28 09/16/18 08:18 Nasal Cannula 2.0 28 09/16/18 08:00 98.2 61 19 120/57 (78) 100 09/16/18 04:00 97.0 56 18 118/59 (78) 100 09/16/18 03:10 59 20 97 Nasal Cannula 2.0 09/16/18 03:10 57 20 97 Nasal Cannula 2.0 09/16/18 00:02 71 20 98 Nasal Cannula 2.0 09/16/18 00:00 97.9 70 18 112/56 (74) 98 09/15/18 23:51 68 20 97 Nasal Cannula 2.0 09/15/18 21:00 Room Air 2.0 09/15/18 20:42 78 20 97 Nasal Cannula 2.0 09/15/18 20:40 67 20 97 Nasal Cannula 2.0 09/15/18 20:31 Nasal Cannula 2.0 09/15/18 20:31 78 20 98 Nasal Cannula 2.0 09/15/18 20:31 76 20 98 Nasal Cannula 2.0 09/15/18 20:30 98 Nasal Cannula 2.0 09/15/18 20:00 97.0 95 18 114/53 (73) 100 Intake and Output 09/15/18 09/16/18 19:00 07:00 Intake Total 1460 ml Output Total 4500 ml 2250 ml Balance -3040 ml -2250 ml Intake Oral 1460 ml Output Urine Total 4500 ml 2250 ml # Voids 3 6 # Bowel Movements 1 General Appearance: WD/WN, no acute distress HEENT: normocephalic, atraumatic, anicteric, mucous membranes moist Respiratory/Chest: rhonchi Cardiovascular: normal peripheral pulses, normal rate, regular rhythm Abdomen: normal bowel sounds, soft, non tender, no organomegaly, non distended Extremities: no cyanosis, no clubbing, other - 1+ NELLIE Current Medications Medications (Trade) Dose Ordered Sig/Virgen Route PRN Reason Start Time Stop Time Status Last Admin Dose Admin Acetaminophen/ Hydrocodone Bitart ([place] 10/325) 1 tab Q4H PRN ORAL For Pain 09/12/18 06:30 09/19/18 06:29 09/16/18 15:17 Albuterol/ Ipratropium (Albuterol/ Ipratropium) 3 ml Q4HRT HHN 09/12/18 11:00 09/17/18 10:59 09/16/18 15:30 Aspirin (ASA) 81 mg DAILY ORAL 09/12/18 09:00 10/12/18 08:59 09/16/18 09:20 Divalproex Sodium (Depakote ER) 750 mg BEDTIME ORAL 09/12/18 21:00 10/12/18 20:59 Ferrous Sulfate (Feosol) 325 mg DAILY ORAL 09/12/18 09:00 10/12/18 08:59 09/16/18 09:19 Furosemide (Lasix) 40 mg EVERY 12 HOURS IV 09/12/18 21:00 10/12/18 20:59 09/16/18 09:19 Heparin Sodium (Porcine) (Heparin 5000 units/ml) 5,000 units EVERY 12 HOURS SUBQ 09/12/18 21:00 10/12/18 20:59 Montelukast Sodium (Singulair) 10 mg DAILY ORAL 09/12/18 09:00 10/12/18 08:59 09/16/18 09:19 Salmeterol Xinafoate/ Fluticasone (Advair 250/50 Diskus) 1 puffs EVERY 12 HOURS INH 09/12/18 09:00 10/12/18 08:59 09/16/18 08:38 Rashad Haji MD Sep 16, 2018 16:17
[2018-09-16 20:00] VITALS: BP 123/61
[2018-09-16] MEDS: Depakote ER 500mg tab ORAL SCH (20:17)
--- NOTE | 2018-09-16 20:56 | General Progress Note ---
Assessment/Plan Assessment/Plan # Anemia due to underlying iron deficiency. The patient on prior admission given IV iron. --> ferritin is reviewed and is 82, TIBC is approx 200, likely iron depleted --> cont to monitor and trend cbc --> Hgb goal >7, transfuse prn. --> Cont po iron daily --> no e/o hemolysis noted # Anemia due to hemodilution with chf overload --> as per cardiology, diuresis as required --> seen by Dr. Crum, on lasix iv # Borderline mediastinal lymphadenopathy, nonspecific etiology. Multiple small right lung nodules. --> Repeat CT scan in 6 to 12 months. --> f/u with [facility] # Leukopenia in the past. Hepatitis and HIV is negative. --> Ultrasound showed no acute findings. --> Medications have been reviewed. --> Cont to monitor for improvement. --> given neupogen if anc <1000 # Congestive heart failure exacerbation versus asthma. as per Dr. Crum. --> cards and pulm recs reviewed --> diuresis as per goal # Chronic venous stasis lower extremities. # Chronic obstructive pulmonary disease exacerbation. initially with shortness of breath. --> as per pulm, hold off on steriods this admission #Psych disorder as per Dr. Norman (seen before) # DVT prophylaxis with heparin. Appreciate consultation greatly! Subjective Constitutional: Denies: no symptoms, chills, diaphoresis, fever, malaise, weakness, other HEENT: Denies: no symptoms, eye pain, blurred vision, tearing, double vision, ear pain, ear discharge, nose pain, nose congestion, throat pain, throat swelling, mouth pain, mouth swelling, other Cardiovascular: Denies: no symptoms, chest pain, edema, irregular heart rate, lightheadedness, palpitations, syncope, other Respiratory: Denies: no symptoms, cough, orthopnea, shortness of breath, SOB with excertion, SOB at rest, sputum, stridor, wheezing, other Gastrointestinal/Abdominal: Denies: no symptoms, abdomen distended, abdominal pain, black stools, tarry stools, blood in stool, constipated, diarrhea, difficulty swallowing, nausea, poor appetite, poor fluid intake, rectal bleeding , vomiting, other Genitourinary: Denies: no symptoms, burning, discharge, frequency, flank pain, hematuria, incontinence, pain, urgency, other Neurologic/Psychiatric: Denies: no symptoms, anxiety, depressed, emotional problems, headache, numbness, paresthesia, pre-existing deficit, seizure, tingling, tremors, weakness, other Endocrine: Denies: no symptoms, excessive sweating, flushing, intolerance to cold, intolerance to heat, increased hunger, increased thirst, increased urine, unexplained weight gain, unexplained weight loss, other Hematologic/Lymphatic: Denies: no symptoms, anemia, easy bleeding, easy bruising, other Allergies: Coded Allergies: PENICILLINS (Verified Allergy, Unknown, 08/31/17) TRAMADOL (Verified Allergy, Unknown, 08/31/17) Subjective 09/16: Pt is awake and seen by bedside, less edema, no SOB or congestion noted. Objective Last 24 Hour Vital Signs Date Time Temp Pulse Resp B/P (MAP) Pulse Ox O2 Delivery O2 Flow Rate FiO2 09/16/18 16:00 98.2 62 21 117/54 (75) 98 09/16/18 15:56 73 20 98 Nasal Cannula 2.0 09/16/18 15:47 98.4 09/16/18 15:31 65 20 98 Nasal Cannula 2.0 28 09/16/18 12:00 98.4 63 20 143/62 (89) 96 09/16/18 11:05 61 20 99 Nasal Cannula 2.0 09/16/18 10:59 55 20 99 Nasal Cannula 2.0 09/16/18 09:00 Room Air 2.0 09/16/18 08:40 71 20 98 Nasal Cannula 2.0 09/16/18 08:40 72 20 98 Nasal Cannula 2.0 09/16/18 08:30 74 20 99 Nasal Cannula 2.0 09/16/18 08:18 98 Nasal Cannula 2.0 09/16/18 08:18 72 22 98 Nasal Cannula 2.0 09/16/18 08:18 Nasal Cannula 2.0 09/16/18 08:00 98.2 61 19 120/57 (78) 100 09/16/18 04:00 97.0 56 18 118/59 (78) 100 09/16/18 03:10 59 20 97 Nasal Cannula 2.0 09/16/18 03:10 57 20 97 Nasal Cannula 2.0 28 19 00:02 71 20 98 Nasal Cannula 2.0 09/16/18 00:00 97.9 70 18 112/56 (74) 98 09/15/18 23:51 68 20 97 Nasal Cannula 2.0 09/15/18 21:00 Room Air 2.0 Intake and Output 09/15/18 09/16/18 18:59 06:59 Intake Total 1460 ml Output Total 4500 ml 2250 ml Balance -3040 ml -2250 ml Intake Oral 1460 ml Output Urine Total 4500 ml 2250 ml # Voids 3 6 # Bowel Movements 1 Height (Feet): 6 Height (Inches): 3.00 Weight (Pounds): 318 Objective General: nad Eyes: bilateral eye PERRL Pulm: speaking full sentences, wheezing, other - R sided rib pain Cardiovascular: regular rate, rhythm, no edema Gastrointestinal: normal bowel sounds, non tender, s Genitourinary: normal inspection, no CVA tenderness Musculoskeletal: back normal, gait/station normal Neurologic: alert, oriented x3, responsive Psychiatric: judgement/insight normal, memory normal, mood/affect normal, no suicidal/homicidal ideation Skin: normal color, no rash Lymphatic: no adenopathy Kade Fermin MD Sep 16, 2018 20:56
--- NOTE | 2018-09-16 21:32 | General Progress Note ---
Assessment/Plan Problem List: (1) Edema ICD Codes: R60.9 - Edema, unspecified SNOMED: 016923741, 221312304 (2) Pain ICD Codes: R52 - Pain, unspecified SNOMED: 73217288 (3) Anemia, iron deficiency ICD Codes: D50.9 - Iron deficiency anemia, unspecified SNOMED: 64861636 (4) CHF exacerbation ICD Codes: I50.9 - Heart failure, unspecified SNOMED: 80711989 (5) Cocaine abuse ICD Codes: F14.10 - Cocaine abuse, uncomplicated SNOMED: 88167825 (6) Asthma exacerbation ICD Codes: J45.901 - Unspecified asthma with (acute) exacerbation SNOMED: 832801819 Qualifiers: Qualified Codes: J45.21 - Mild intermittent asthma with (acute) exacerbation (7) Morbid obesity ICD Codes: E66.01 - Morbid (severe) obesity due to excess calories SNOMED: 172537076 (8) Edema ICD Codes: R60.9 - Edema, unspecified SNOMED: 847108441, 236898959 (9) CHF (congestive heart failure) ICD Codes: I50.9 - Heart failure, unspecified SNOMED: 51530350 (10) Peripheral edema ICD Codes: R60.9 - Edema, unspecified SNOMED: 542707067 (11) COPD exacerbation ICD Codes: J44.1 - Chronic obstructive pulmonary disease with (acute) exacerbation SNOMED: 385836392 Status: progressing Assessment/Plan no wheezing resp status is improving afebrile obesity fluid management per renal and cardiology chf improving ashma /copd exac improving Subjective ROS Limited/Unobtainable: Yes Constitutional: Reports: no symptoms Allergies: Coded Allergies: PENICILLINS (Verified Allergy, Unknown, 08/31/17) TRAMADOL (Verified Allergy, Unknown, 08/31/17) Subjective leg pain some cough Objective Last 24 Hour Vital Signs Date Time Temp Pulse Resp B/P (MAP) Pulse Ox O2 Delivery O2 Flow Rate FiO2 09/16/18 16:00 98.2 62 21 117/54 (75) 98 09/16/18 15:56 73 20 98 Nasal Cannula 2.0 28 09/16/18 15:47 98.4 09/16/18 15:31 65 20 98 Nasal Cannula 2.0 28 09/16/18 12:00 98.4 63 20 143/62 (89) 96 09/16/18 11:05 61 20 99 Nasal Cannula 2.0 09/16/18 10:59 55 20 99 Nasal Cannula 2.0 09/16/18 09:00 Room Air 2.0 09/16/18 08:40 71 20 98 Nasal Cannula 2.0 28 09/16/18 08:40 72 20 98 Nasal Cannula 2.0 28 09/16/18 08:30 74 20 99 Nasal Cannula 2.0 28 09/16/18 08:18 98 Nasal Cannula 2.0 28 09/16/18 08:18 72 22 98 Nasal Cannula 2.0 28 09/16/18 08:18 Nasal Cannula 2.0 28 09/16/18 08:00 98.2 61 19 120/57 (78) 100 09/16/18 04:00 97.0 56 18 118/59 (78) 100 09/16/18 03:10 59 20 97 Nasal Cannula 2.0 28 09/16/18 03:10 57 20 97 Nasal Cannula 2.0 09/16/18 00:02 71 20 98 Nasal Cannula 2.0 28 09/16/18 00:00 97.9 70 18 112/56 (74) 98 09/15/18 23:51 68 20 97 Nasal Cannula 2.0 28 Intake and Output 09/15/18 09/16/18 18:59 06:59 Intake Total 1460 ml Output Total 4500 ml 2250 ml Balance -3040 ml -2250 ml Intake Oral 1460 ml Output Urine Total 4500 ml 2250 ml # Voids 3 6 # Bowel Movements 1 Height (Feet): 6 Height (Inches): 3.00 Weight (Pounds): 318 Neck: supple Cardiovascular: normal rate Respiratory/Chest: lungs clear Abdomen: soft Brittney Shepard MD Sep 16, 2018 21:32
[2018-09-17] VITALS: BP 130/78
[2018-09-17] MEDS: HYDROcodone/Acetamin 10/325 tab ORAL PRN ×4 (00:47→13:20)
[2018-09-17] MEDS: Albuterol/Ipratropium 3ml neb HHN SCH ×3 (03:15→10:45)
[2018-09-17 04:00] VITALS: BP 113/57
[2018-09-17] MEDS: Advair 250/50 Inhaler - 14 dose INH SCH (07:42)
[2018-09-17 08:00] VITALS: BP 139/60
[2018-09-17] MEDS: Montelukast 10mg tablet ORAL SCH (09:00)
[2018-09-17] MEDS: Aspirin Baby 81mg ORAL SCH (09:00)
[2018-09-17] MEDS: Heparin 5000 units/ml inj SUBQ SCH (09:00)
[2018-09-17] MEDS ORDERED: Azithromycin 250mg tab ORAL SCH (09:00)
[2018-09-17 12:00] VITALS: BP 140/69
--- NOTE | 2018-09-17 13:33 | General Progress Note ---
Assessment/Plan Assessment/Plan # Anemia due to underlying iron deficiency. The patient on prior admission given IV iron. --> ferritin is reviewed and is 82, TIBC is approx 200, likely iron depleted --> cont to monitor and trend cbc --> Hgb goal >7, transfuse prn. --> Cont po iron daily --> no e/o hemolysis noted # Anemia due to hemodilution with chf overload --> as per cardiology, diuresis as required --> seen by Dr. Crum, on lasix iv # Borderline mediastinal lymphadenopathy, nonspecific etiology. Multiple small right lung nodules. --> Repeat CT scan in 6 to 12 months. --> f/u with [facility] # Leukopenia in the past. Hepatitis and HIV is negative. --> Ultrasound showed no acute findings. --> Medications have been reviewed. --> Cont to monitor for improvement. --> given neupogen if anc <1000 # Congestive heart failure exacerbation versus asthma. as per Dr. Crum. --> cards and pulm recs reviewed --> diuresis as per goal # Chronic venous stasis lower extremities. # Chronic obstructive pulmonary disease exacerbation. initially with shortness of breath. --> as per pulm, hold off on steriods this admission #Psych disorder as per Dr. Norman (seen before) # DVT prophylaxis with heparin. Appreciate consultation greatly! Subjective Constitutional: Denies: no symptoms, chills, diaphoresis, fever, malaise, weakness, other HEENT: Denies: no symptoms, eye pain, blurred vision, tearing, double vision, ear pain, ear discharge, nose pain, nose congestion, throat pain, throat swelling, mouth pain, mouth swelling, other Cardiovascular: Denies: no symptoms, chest pain, edema, irregular heart rate, lightheadedness, palpitations, syncope, other Respiratory: Denies: no symptoms, cough, orthopnea, shortness of breath, SOB with excertion, SOB at rest, sputum, stridor, wheezing, other Gastrointestinal/Abdominal: Denies: no symptoms, abdomen distended, abdominal pain, black stools, tarry stools, blood in stool, constipated, diarrhea, difficulty swallowing, nausea, poor appetite, poor fluid intake, rectal bleeding , vomiting, other Genitourinary: Denies: no symptoms, burning, discharge, frequency, flank pain, hematuria, incontinence, pain, urgency, other Neurologic/Psychiatric: Denies: no symptoms, anxiety, depressed, emotional problems, headache, numbness, paresthesia, pre-existing deficit, seizure, tingling, tremors, weakness, other Endocrine: Denies: no symptoms, excessive sweating, flushing, intolerance to cold, intolerance to heat, increased hunger, increased thirst, increased urine, unexplained weight gain, unexplained weight loss, other Hematologic/Lymphatic: Denies: no symptoms, anemia, easy bleeding, easy bruising, other Allergies: Coded Allergies: PENICILLINS (Verified Allergy, Unknown, 08/31/17) TRAMADOL (Verified Allergy, Unknown, 08/31/17) Subjective 09/16: Pt is awake and seen by bedside, less edema, no SOB or congestion noted. 09/17: pt is seen by bedside, awake, comfortable, no events Objective Last 24 Hour Vital Signs Date Time Temp Pulse Resp B/P (MAP) Pulse Ox O2 Delivery O2 Flow Rate FiO2 09/17/18 12:00 97.9 61 20 140/69 (92) 97 09/17/18 10:53 64 20 99 Nasal Cannula 2.0 28 09/17/18 10:45 56 20 97 Nasal Cannula 2.0 28 09/17/18 09:31 98.3 09/17/18 09:00 Room Air 2.0 09/17/18 08:00 98.3 54 19 139/60 (86) 100 09/17/18 07:43 62 20 99 Nasal Cannula 2.0 28 09/17/18 07:43 62 20 99 Nasal Cannula 2.0 28 09/17/18 07:32 56 20 98 Nasal Cannula 2.0 28 09/17/18 07:32 Nasal Cannula 2.0 28 09/17/18 07:32 98 Nasal Cannula 2.0 28 09/17/18 07:32 56 20 98 Nasal Cannula 2.0 28 09/17/18 04:00 98.1 60 17 113/57 (75) 97 09/17/18 03:22 79 20 97 Room Air 21 09/17/18 03:14 68 20 94 Room Air 21 09/17/18 00:00 97.6 65 19 130/78 (95) 99 09/16/18 23:50 78 20 98 Room Air 21 09/16/18 23:49 77 20 97 Room Air 21 09/16/18 23:40 74 20 95 Room Air 21 09/16/18 23:38 74 20 95 Room Air 21 09/16/18 21:00 Room Air 2.0 09/16/18 20:00 97.5 63 18 123/61 (81) 98 09/16/18 19:00 Room Air 21 09/16/18 19:00 95 Nasal Cannula 21 09/16/18 16:00 98.2 62 21 117/54 (75) 98 09/16/18 15:56 73 20 98 Nasal Cannula 2.0 28 09/16/18 15:31 65 20 98 Nasal Cannula 2.0 28 Intake and Output 09/16/18 09/17/18 19:00 07:00 Intake Total 2400 ml 800 ml Output Total 4400 ml 2480 ml Balance -2000 ml -1680 ml Intake Oral 2400 ml 800 ml Output Urine Total 4400 ml 2480 ml # Bowel Movements 1 Height (Feet): 6 Height (Inches): 3.00 Weight (Pounds): 318 Objective General: nad Eyes: bilateral eye PERRL Pulm: speaking full sentences, wheezing, other - R sided rib pain Cardiovascular: regular rate, rhythm, no edema Gastrointestinal: normal bowel sounds, non tender, s Genitourinary: normal inspection, no CVA tenderness Musculoskeletal: back normal, gait/station normal Neurologic: alert, oriented x3, responsive Psychiatric: judgement/insight normal, memory normal, mood/affect normal, no suicidal/homicidal ideation Skin: normal color, no rash Lymphatic: no adenopathy Kade Fermin MD Sep 17, 2018 13:33
--- NOTE | 2018-09-17 13:52 | Diagnostic Imaging Report ---
Indication: Cough Comparison: 09/11/2018 A single view chest radiograph was obtained. Findings: Cardiomediastinal appearance is within normal limits for age. The lungs are clear. Pulmonary vascularity is appropriate. The diaphragmatic contour is smooth and costophrenic angles are sharp. No pleural effusions are identified. The bones are unremarkable. Impression: No acute findings
--- NOTE | 2018-09-17 18:59 | Pulmonology Progress Note ---
Assessment/Plan Problems: (1) Asthma exacerbation (2) Edema (3) CHF (congestive heart failure) (4) COPD exacerbation (5) Peripheral edema (6) Morbid obesity Assessment/Plan ASSESSMENT: The patient is a 63-year-old male, lifelong nonsmoker with a history of congestive heart failure with diastolic dysfunction, pulmonary hypertension, obesity, likely obstructive sleep apnea, known pulmonary nodules, anemia and asthma, presenting with recurrent NELLIE PROBLEM LIST: 1. Asthma with exacerbation. 2. CHF with diastolic dysfunction, 3. Bilateral lower extremity edema, likely secondary to above. 4. Known scattered bilateral subcentimeter nodules, stable on follow-up - per patient being followed up by PULMONARY @ [facility] 5. Anemia. 6. Hypertension. 7. Obesity. 8. Likely THERON. TREATMENT PLAN: 1. Optimize pulmonary hygiene/mobilize as tolerated. 2. P.r.n. O2 to keep saturations greater than 90%. 3. RTC and PRN HHN's 4. Advair 250/50 5. Pred 40 (D2) and PO Azithro (D2), F/U sputum Cx 6. Monitor volumes, diuresis per cards 7. Incentive spirometry 8. Continue to follow up with [facility] Pulmonary Clinic per the patient. 9. DVT prophylaxis, heparin subcutaneous. 10. Weight-loss diet and exercise discussed again. Subjective Allergies: Coded Allergies: PENICILLINS (Verified Allergy, Unknown, 08/31/17) TRAMADOL (Verified Allergy, Unknown, 08/31/17) Subjective Late entry was seen earlier AFVSS O2 needs stable diuresing Feels at baseline Less edema no SOB inc congestion and cough no wheezing no FC Objective Last 24 Hour Vital Signs Date Time Temp Pulse Resp B/P (MAP) Pulse Ox O2 Delivery O2 Flow Rate FiO2 09/17/18 13:50 97.9 09/17/18 12:00 97.9 61 20 140/69 (92) 97 09/17/18 10:53 64 20 99 Nasal Cannula 2.0 28 09/17/18 10:45 56 20 97 Nasal Cannula 2.0 28 09/17/18 09:00 Room Air 2.0 09/17/18 08:00 98.3 54 19 139/60 (86) 100 09/17/18 07:43 62 20 99 Nasal Cannula 2.0 28 09/17/18 07:43 62 20 99 Nasal Cannula 2.0 28 09/17/18 07:32 56 20 98 Nasal Cannula 2.0 28 09/17/18 07:32 Nasal Cannula 2.0 28 09/17/18 07:32 98 Nasal Cannula 2.0 28 09/17/18 07:32 56 20 98 Nasal Cannula 2.0 28 09/17/18 04:00 98.1 60 17 113/57 (75) 97 09/17/18 03:22 79 20 97 Room Air 21 09/17/18 03:14 68 20 94 Room Air 21 09/17/18 00:00 97.6 65 19 130/78 (95) 99 09/16/18 23:50 78 20 98 Room Air 21 09/16/18 23:49 77 20 97 Room Air 21 09/16/18 23:40 74 20 95 Room Air 21 09/16/18 23:38 74 20 95 Room Air 21 09/16/18 21:00 Room Air 2.0 09/16/18 20:00 97.5 63 18 123/61 (81) 98 09/16/18 19:00 Room Air 21 09/16/18 19:00 95 Nasal Cannula 21 Intake and Output 09/16/18 09/17/18 19:00 07:00 Intake Total 2400 ml 800 ml Output Total 4400 ml 2480 ml Balance -2000 ml -1680 ml Intake Oral 2400 ml 800 ml Output Urine Total 4400 ml 2480 ml # Bowel Movements 1 General Appearance: WD/WN, no acute distress HEENT: normocephalic, atraumatic, anicteric, mucous membranes moist Respiratory/Chest: chest wall non-tender, lungs clear, normal breath sounds, no respiratory distress, no accessory muscle use Cardiovascular: normal peripheral pulses, normal rate, regular rhythm Abdomen: normal bowel sounds, soft, non tender, no organomegaly, non distended , no mass Extremities: no cyanosis, no clubbing, other - trace edema Rashad Haji MD Sep 17, 2018 18:59
--- NOTE | 2018-09-18 12:39 | Discharge Summary ---
Discharge Summary Discharge Summary _ DATE OF ADMISSION: 09/12/2018 DATE OF DISCHARGE: 09/17/2018 DISCHARGED BY: Dr. Brittney Drew CONSULTANTS: Dr. Rashad Crum BRIEF HOSPITAL COURSE: Patient is a 63-year-old male, with history of hypertension and reported CHF. He presented to ED with chief complaint of leg pain secondary to edema. This is been a chronic issue but had gotten worse over the last few days. Worse with walking. He denied fever, chills, denied vomiting or nausea. He had some mild cough and shortness of breath. There were no exertional component. On evaluation at the ED, vital signs were stable. Blood work did not show any leukocytosis, hemoglobin was 11, hematocrit 36. Electrolytes were normal. Troponin negative. ProBNP 110. Urinalysis is negative. Urine toxicology was positive for cocaine and marijuana. Chest x-ray showed no acute process. Patient was unable to ambulate without getting short of breath. He was given IV Lasix and diuresis. He was admitted for CHF exacerbation. 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 Patient has a known history of bilateral subcentimeter lung nodules and is being followed by pulmonary department at [facility]. Patient has history of asthma and likely obstructive sleep apnea. He was given nebulizer treatment. He was given Advair. He was encouraged use of incentive spirometry. He was placed on heparin for DVT prophylaxis. Cardiac evaluation was done. Patient had elevated blood pressure. In view of active cocaine use, patient was given Lasix 40 mg IV twice daily. He had severe bilateral lower extremity edema, likely congestive heart failure due to diastolic dysfunction. Echocardiogram from prior admission showed EF of 60% with right ventricular systolic pressure of 41 mmHg, consistent with mild pulmonary hypertension. He was noted to have anemia. Anemia workup showed iron serum 46, TIBC of 213 and ferritin level of 234. Patient from prior admission was given IV iron. Anemia may be due to hemodilution of CHF overload and possibly due to iron deficiency. He had leukopenia in the past both hepatitis and HIV screen were negative. Abdominal ultrasound then did not show any acute findings. He was diuresing well on Lasix. He was eventually started on prednisone and p.o. azithromycin. There was less edema and no shortness of breath, no wheezing. Repeat chest x- ray showed no acute findings. He was eventually cleared for discharge home. FINAL DIAGNOSES: Asthma with acute exacerbation Acute COPD exacerbation Acute on chronic diastolic CHF Bilateral lower extremity edema, likely secondary to CHF Known scattered bilateral subcentimeter nodules Anemia of chronic disease Anemia of iron deficiency Hypertension Morbid obesity Likely obstructive sleep apnea Chronic venous stasis of the lower extremity DISPOSITION: Patient was discharged home. DISCHARGE MEDICATIONS: Refer to Discharge Medication List. DISCHARGE INSTRUCTIONS: Follow-up in a week. I have been assigned to complete a discharge summary on this account, I was not involved with the patient's management. Brooklyn Francis NP Sep 18, 2018 12:39
== END 2018-09-17 15:20 | disposition home or self-care (01) | DRG 194 ==
LOC: EDBD 23:19 → EMR 23:57 → EDBEDREQ 09-12 02:59 → 4E 09-12 03:35 → EDBEDREQ 09-12 04:11
DX: I11.0 Hypertensive heart disease with heart failure (principal); E66.01 Morbid (severe) obesity due to excess calories; J44.1 Chronic obstructive pulmonary disease with (acute) exacerbation; D63.8 Anemia in other chronic diseases classified elsewhere; D50.9 Iron deficiency anemia, unspecified; F14.10 Cocaine abuse, uncomplicated; I50.33 Acute on chronic diastolic (congestive) heart failure; R91.8 Other nonspecific abnormal finding of lung field; G47.33 Obstructive sleep apnea (adult) (pediatric); I87.8 Other specified disorders of veins; Z88.6 Allergy status to analgesic agent; Z88.0 Allergy status to penicillin; Z91.81 History of falling; Z79.82 Long term (current) use of aspirin
CPT/HCPCS: 36415; 36600; 71045; 80053; 80307; 81003; 82728; 82803; 83540; 83550; 83880; 84484; 85007; 85025; 87081; 94640; 94664; 94760; 96374; 99285; J7620

== ENCOUNTER 2018-09-30 11:04 | Inpatient (IN) | payer MEDICAID ==
[~2018-09-30] VITALS: Ht 180.3 cm; Wt 153.3 kg
--- NOTE | 2018-09-30 11:10 | NUR ---
ED Nurse Note: Patient brought in by ambulance RA 10 from home (patient reports that he came from home and he lives by himself) c/o bilateral leg pain.
[2018-09-30] MEDS ORDERED: Aspirin Baby 81mg ORAL ONE (11:15)
[2018-09-30] MEDS ORDERED: UNOBMED (11:20)
[2018-09-30] MEDS: Albuterol/Ipratropium 3ml neb HHN SCH ×2 (11:38→11:45)
[2018-09-30 12:20] LABS: BASOPHILS % (AUTO) 2.7 % (0.0-2.0); HEMATOCRIT 33.5 % (42.0-52.0); HEMOGLOBIN 10.5 G/DL (14.2-18.0); LYMPHOCYTES % (AUTO) 31.3 % (20.0-45.0); MEAN CORPUSCULAR VOLUME 84 FL (80-99); PLATELET COUNT 207 K/UL (150-450); RED BLOOD COUNT 3.98 M/UL (4.70-6.10); RED CELL DISTRIBUTION WIDTH 15.6 % (11.6-14.8); WHITE BLOOD COUNT 5.8 K/UL (4.8-10.8)
[2018-09-30 12:22] LABS: ANION GAP 11 mmol/L (5-15); BLOOD UREA NITROGEN 31 mg/dL (7-18); CALCIUM 9.8 MG/DL (8.5-10.1); CARBON DIOXIDE 25 MMOL/L (21-32); CHLORIDE 109 MMOL/L (98-107); CREATININE 1.1 MG/DL (0.55-1.30); POTASSIUM 3.9 MMOL/L (3.5-5.1); SODIUM 145 MMOL/L (136-145)
[2018-09-30 12:32] VITALS: BP 139/85
[2018-09-30 12:37] LABS: APPEARANCE,URINE CLEAR; BILIRUBIN, URINE NEGATIVE (NEGATIVE); COLOR,URINE PALE YELLOW; GLUCOSE, URINE (UA) NEGATIVE (NEGATIVE); KETONES,URINE NEGATIVE (NEGATIVE); LEUKOCYTE ESTERASE ,URINE NEGATIVE (NEGATIVE); NITRITE,URINE NEGATIVE (NEGATIVE); PH,URINE 5 (4.5-8.0); PROTEIN,URINE NEGATIVE (NEGATIVE); UROBILINOGEN,URINE NORMAL MG/DL (0.0-1.0)
[2018-09-30 12:40] LABS: ALANINE AMINOTRANSFERASE 26 U/L (12-78); ALBUMIN 3.3 G/DL (3.4-5.0); ALBUMIN/GLOBULIN RATIO 0.8 (1.0-2.7); ALKALINE PHOSPHATASE 87 U/L (46-116); ASPARTATE AMINO TRANSFERASE 13 U/L (15-37); BILIRUBIN,TOTAL 0.3 MG/DL (0.2-1.0); CKMB 1.6 NG/ML (0.0-3.6); CREATINE KINASE 113 U/L (26-308)
[2018-09-30] MEDS ORDERED: Morphine Sulfate 4mg/ml Inj (IV USE ONLY) IVP ONE (12:45)
[2018-09-30] MEDS ORDERED: Solu-MEDROL 125mg Inj IVP ONE (13:00)
--- NOTE | 2018-09-30 13:14 | NUR ---
ED Nurse Note: report given to Maria Guadalupe SUAZO per rn, they're cleaning the room for the patient.
--- NOTE | 2018-09-30 13:40 | NUR ---
ED Nurse Note: patient is transferred to ED with Winston SUAZO, report given to Maria Guadalupe SUAZO
--- NOTE | 2018-09-30 14:00 | NUR ---
NURSE NOTES: I received the patient from the ER and report from LAKEISHA Tapia. Patient alert and oriented x4. Patient does not display any signs of distress or SOB. Patient oriented to the room and use of the call light. Bed in the lowest position and call light within reach.
--- NOTE | 2018-09-30 15:24 | Diagnostic Imaging Report ---
Indication: Cough Technique: One view of the chest Comparison: 09/17/2018 Findings: Heart is enlarged. There is mild interstitial edema bilaterally. There may be a small amount pleural fluid on the left. Impression: Cardiomegaly with evidence of congestive heart failure and small left pleural effusion This agrees with the preliminary interpretation provided by the emergency room physician
--- NOTE | 2018-09-30 15:34 | Emergency Room Report ---
History of Present Illness General Chief Complaint: Edema Source: Patient Present Illness HPI Patient presents emergency department today complaining of acute onset of edema. Patient has a history of chronic edema of the legs with multiple visits. Patient presents her complaining worsening leg edema. Patient states that he was trying to get to his doctor's office became very short of breath could not make it and call 911. Patient was by her further evaluation. Patient does complain of shortness of breath. Patient denies any fever nausea vomiting diarrhea chills. Symptoms noted to be highly severe.No other modifying factors. No other associated signs and symptoms. No other complaints were noted. Allergies: Coded Allergies: PENICILLINS (Verified Allergy, Unknown, 08/31/17) TRAMADOL (Verified Allergy, Unknown, 08/31/17) Patient History Past Medical History: HTN, CAD, asthma, COPD Past Surgical History: none Pertinent Family History: none Social History: Denies: smoking, alcohol use, drug use Reviewed Nursing Documentation: PMH: Agreed; PSxH: Agreed Nursing Documentation-PMH Past Medical History: No History, Except For Hx Cardiac Problems: Yes Hx Hypertension: Yes Hx Asthma: Yes Hx COPD: Yes Hx Cancer: No Hx Gastrointestinal Problems: No Hx Neurological Problems: No Review of Systems All Other Systems: negative except mentioned in HPI Physical Exam Vital Signs Date Time Temp Pulse Resp B/P (MAP) Pulse Ox O2 Delivery O2 Flow Rate FiO2 09/30/18 11:04 97.9 80 18 130/80 98 Room Air 09/30/18 11:20 21 Sp02 EP Interpretation: reviewed, normal General Appearance: alert, moderate distress Head: atraumatic Eyes: bilateral eye normal inspection ENT: normal ENT inspection, hearing grossly normal, normal voice Neck: normal inspection, full range of motion, supple, no bony tend Respiratory: normal inspection, decreased breath sounds, accessory muscle use, wheezing, expiration Cardiovascular #1: regular rate, rhythm, no edema Gastrointestinal: normal inspection, normal bowel sounds, non tender, soft, no guarding, no hernia Genitourinary: no CVA tenderness Musculoskeletal: normal inspection, back normal, normal range of motion Neurologic: normal inspection, alert, responsive, speech normal Psychiatric: judgement/insight normal, depressed affect Skin: normal inspection, normal color, no rash Medical Decision Making Diagnostic Impression: Primary Impression: COPD exacerbation Additional Impression: Edema ER Course Patient presents emergency department today complaining of shortness of breath. Differential diagnoses include acute pneumonia, CHF, acute coronary syndrome, pneumothorax, asthma, COPD flare, just to name a few. Given the severity of the patient's presentation I felt this is a highly complex patient. This patient required extensive workup. Patient's exam consistent with acute COPD exacerbation. Patient was given Solu-Medrol. Patient was also given Lasix was edema. Patient's cardiac workup otherwise was negative. Case was discussed in detail with admitting physician. Patient will be admitted to Dr. Brittney Drew for further treatment. Labs Test 09/30/18 11:05 09/30/18 12:10 White Blood Count 5.8 K/UL (4.8-10.8) Red Blood Count 3.98 M/UL (4.70-6.10) Hemoglobin 10.5 G/DL (14.2-18.0) Hematocrit 33.5 % (42.0-52.0) Mean Corpuscular Volume 84 FL (80-99) Mean Corpuscular Hemoglobin 26.5 PG (27.0-31.0) Mean Corpuscular Hemoglobin Concent 31.4 G/DL (32.0-36.0) Red Cell Distribution Width 15.6 % (11.6-14.8) Platelet Count 207 K/UL (150-450) Mean Platelet Volume 7.9 FL (6.5-10.1) Neutrophils (%) (Auto) 48.0 % (45.0-75.0) Lymphocytes (%) (Auto) 31.3 % (20.0-45.0) Monocytes (%) (Auto) 11.0 % (1.0-10.0) Eosinophils (%) (Auto) 7.0 % (0.0-3.0) Basophils (%) (Auto) 2.7 % (0.0-2.0) Sodium Level 145 MMOL/L (136-145) Potassium Level 3.9 MMOL/L (3.5-5.1) Chloride Level 109 MMOL/L (98-107) Carbon Dioxide Level 25 MMOL/L (21-32) Anion Gap 11 mmol/L (5-15) Blood Urea Nitrogen 31 mg/dL (7-18) Creatinine 1.1 MG/DL (0.55-1.30) Estimat Glomerular Filtration Rate > 60 mL/min (>60) Glucose Level 93 MG/DL (74-106) Calcium Level 9.8 MG/DL (8.5-10.1) Total Bilirubin 0.3 MG/DL (0.2-1.0) Aspartate Amino Transf (AST/SGOT) 13 U/L (15-37) Alanine Aminotransferase (ALT/SGPT) 26 U/L (12-78) Alkaline Phosphatase 87 U/L (46-116) Total Creatine Kinase 113 U/L (26-308) Creatine Kinase MB 1.6 NG/ML (0.0-3.6) Creatine Kinase MB Relative Index 1.4 Troponin I 0.000 ng/mL (0.000-0.056) Pro-B-Type Natriuretic Peptide 89 pg/mL (0-125) Total Protein 7.6 G/DL (6.4-8.2) Albumin 3.3 G/DL (3.4-5.0) Globulin 4.3 g/dL Albumin/Globulin Ratio 0.8 (1.0-2.7) Lipase 155 U/L (73-393) Urine Color Pale yellow Urine Appearance Clear Urine pH 5 (4.5-8.0) Urine Specific [place] 1.010 (1.005-1.035) Urine Protein Negative (NEGATIVE) Urine Glucose (UA) Negative (NEGATIVE) Urine Ketones Negative (NEGATIVE) Urine Blood Negative (NEGATIVE) Urine Nitrite Negative (NEGATIVE) Urine Bilirubin Negative (NEGATIVE) Urine Urobilinogen Normal MG/DL (0.0-1.0) Urine Leukocyte Esterase Negative (NEGATIVE) EKG Diagnostic Results Rate: normal Rhythm: NSR ST Segments: no acute changes Rhythm Strip Diag. Results EP Interpretation: yes Rate: 69 Rhythm: NSR, no PVC's, no ectopy Chest X-Ray Diagnostic Results Chest X-Ray Diagnostic Results : Chest X-Ray Ordered: Yes Indication: Shortness of Breath EP Interpretation: No Interpretation: other - Cardiomegaly, pulmonary congestion Last Vital Signs Date Time Temp Pulse Resp B/P (MAP) Pulse Ox O2 Delivery O2 Flow Rate FiO2 09/30/18 14:36 Room Air 09/30/18 12:33 92 28 21 09/30/18 12:32 97.9 139/85 100 Status: improved Disposition: ADMITTED INPATIENT Condition: Serious Referrals: NON PHYSICIAN (PCP) Giovany Hinojosa MD Sep 30, 2018 15:34
[2018-09-30] MEDS ORDERED: Albuterol ud Inhalation HHN PRN (15:45)
[2018-09-30 16:00] VITALS: BP 151/97
--- NOTE | 2018-09-30 16:56 | General Progress Note ---
Assessment/Plan Assessment/Plan (1) B/L LE pain (2) Edema (3) B/L knee pain (4) B/L Knee OA (5) Morbid obesity (6) Cocaine abuse Pt to be continued on [place]. D/w Dr. Hurley and he concurred. Subjective Date patient seen: Sep 30, 2018 Time patient seen: 04:30 - pm Constitutional: Reports: no symptoms HEENT: Reports: no symptoms Cardiovascular: Reports: no symptoms Respiratory: Reports: no symptoms Gastrointestinal/Abdominal: Reports: no symptoms Genitourinary: Reports: no symptoms Neurologic/Psychiatric: Reports: no symptoms Endocrine: Reports: no symptoms Hematologic/Lymphatic: Reports: no symptoms Allergies: Coded Allergies: PENICILLINS (Verified Allergy, Unknown, 08/31/17) TRAMADOL (Verified Allergy, Unknown, 08/31/17) Subjective Patient is a known patient from prior admission and continues to c/o Knee pain b /l. Was found to be positive for cocaine on pervious admission. Now on [place] 10/ 325mg Q4H PRN. Objective Last 24 Hour Vital Signs Date Time Temp Pulse Resp B/P (MAP) Pulse Ox O2 Delivery O2 Flow Rate FiO2 09/30/18 16:00 96.7 77 20 151/97 (115) 09/30/18 14:36 Room Air 09/30/18 12:33 92 28 Room Air 21 09/30/18 12:32 97.9 92 28 139/85 100 Room Air 21 09/30/18 12:14 75 22 100 Room Air 09/30/18 11:35 21 09/30/18 11:20 62 16 Room Air 21 09/30/18 11:20 62 16 99 Room Air 21 09/30/18 11:20 21 09/30/18 11:04 97.9 80 18 130/80 98 Room Air Laboratory Tests 09/30/18 11:05: White Blood Count 5.8, Red Blood Count 3.98L, Hemoglobin 10.5L, Hematocrit 33.5L , Mean Corpuscular Volume 84, Mean Corpuscular Hemoglobin 26.5L, Mean Corpuscular Hemoglobin Concent 31.4L, Red Cell Distribution Width 15.6H, Platelet Count 207, Mean Platelet Volume 7.9, Neutrophils (%) (Auto) 48.0, Lymphocytes (%) (Auto) 31.3, Monocytes (%) (Auto) 11.0H, Eosinophils (%) (Auto) 7.0H, Basophils (%) (Auto) 2.7H, Sodium Level 145, Potassium Level 3.9, Chloride Level 109H, Carbon Dioxide Level 25, Anion Gap 11, Blood Urea Nitrogen 31H, Creatinine 1.1, Estimat Glomerular Filtration Rate > 60, Glucose Level 93, Calcium Level 9.8, Total Bilirubin 0.3, Aspartate Amino Transf (AST/SGOT) 13L, Alanine Aminotransferase (ALT/SGPT) 26, Alkaline Phosphatase 87, Total Creatine Kinase 113, Creatine Kinase MB 1.6, Creatine Kinase MB Relative Index 1.4, Troponin I 0.000, Pro-B-Type Natriuretic Peptide 89, Total Protein 7.6, Albumin 3.3L, Globulin 4.3, Albumin/Globulin Ratio 0.8L, Lipase 155 09/30/18 12:10: Urine Color Pale yellow, Urine Appearance Clear, Urine pH 5, Urine Specific [place] 1.010, Urine Protein Negative, Urine Glucose (UA) Negative, Urine Ketones Negative, Urine Blood Negative, Urine Nitrite Negative, Urine Bilirubin Negative, Urine Urobilinogen Normal, Urine Leukocyte Esterase Negative Height (Feet): 5 Height (Inches): 11.00 Weight (Pounds): 250 General Appearance: no apparent distress, alert EENT: PERRL/EOMI Neck: normal alignment, supple Cardiovascular: normal rate, regular rhythm Respiratory/Chest: decreased breath sounds Abdomen: soft Extremities: non-tender Edema: moderate edema Neurologic: alert, oriented x 3 Skin: warm/dry Leonel Singer Sep 30, 2018 16:56
--- NOTE | 2018-09-30 19:29 | NUR ---
HAND-OFF: Report given to LAKEISHA Mchugh.
--- NOTE | 2018-09-30 19:30 | NUR ---
NURSE NOTES: Received report from LAKEISHA Lerma. Pt is resting in bed. In no acute distress. Bed in lowest position, call light within reach. Will continue plan of care.
[2018-09-30 20:00] VITALS: BP 114/50
[2018-09-30] MEDS ORDERED: Advair 250/50 Inhaler - 14 dose INH SCH (21:00)
[2018-09-30] MEDS: Montelukast 10mg tablet ORAL SCH (21:25)
[2018-09-30] MEDS: HYDROcodone/Acetamin 10/325 tab ORAL PRN (21:25)
[2018-10-01] VITALS: BP 110/59
[2018-10-01] MEDS: HYDROcodone/Acetamin 10/325 tab ORAL PRN ×5 (03:54→20:40)
[2018-10-01 04:00] VITALS: BP 133/65
--- NOTE | 2018-10-01 07:20 | NUR ---
NURSE NOTES: I received the patient awake and resting in bed. Patient alert and oriented x4. Bed in the lowest position and call light within reach. Patient does not display any signs of distress or SOB.
--- NOTE | 2018-10-01 07:29 | NUR ---
HAND-OFF: Report given to LAKEISHA Lerma.
[2018-10-01 08:00] VITALS: BP 130/61
[2018-10-01 08:00] LABS: BASOPHILS % (AUTO) 0.7 % (0.0-2.0); EOSINOPHILS % (AUTO) 0.1 % (0.0-3.0); HEMATOCRIT 31.3 % (42.0-52.0); HEMOGLOBIN 9.9 G/DL (14.2-18.0); LYMPHOCYTES % (AUTO) 22.7 % (20.0-45.0); MEAN CORPUSCULAR VOLUME 83 FL (80-99); MONOCYTES % (AUTO) 9.6 % (1.0-10.0); NEUTROPHILS % (AUTO) 66.9 % (45.0-75.0); PLATELET COUNT 206 K/UL (150-450); RED BLOOD COUNT 3.76 M/UL (4.70-6.10); RED CELL DISTRIBUTION WIDTH 15.4 % (11.6-14.8); WHITE BLOOD COUNT 6.2 K/UL (4.8-10.8)
[2018-10-01 08:11] LABS: ANION GAP 9 mmol/L (5-15); BLOOD UREA NITROGEN 31 mg/dL (7-18); CALCIUM 9.1 MG/DL (8.5-10.1); CARBON DIOXIDE 26 MMOL/L (21-32); CHLORIDE 106 MMOL/L (98-107); CREATININE 0.8 MG/DL (0.55-1.30); POTASSIUM 4.3 MMOL/L (3.5-5.1); SODIUM 141 MMOL/L (136-145)
[2018-10-01] MEDS: Aspirin Baby 81mg ORAL SCH (08:48)
[2018-10-01] MEDS: Advair 250/50 Inhaler - 14 dose INH SCH ×2 (09:16→22:47)
[2018-10-01 11:58] VITALS: BP 134/58
[2018-10-01 16:00] VITALS: BP 139/71
--- NOTE | 2018-10-01 17:03 | Cardiology Report ---
APPROVED REPORT EKG Measurement Heart [id number] Normal sinus rhythm Normal ECG
[2018-10-01] MEDS: Benazepril 10mg tab ORAL SCH (17:33)
--- NOTE | 2018-10-01 18:06 | Consultation ---
Consult Note Consult Note DATE OF CONSULTATION: 10/01/2018 PULMONARY CONSULTATION CONSULTING PHYSICIAN: Rashad Haji M.D. REFERRING PHYSICIAN: Brittney Shepard M.D. REASON FOR CONSULTATION: Shortness of breath. HISTORY OF PRESENT ILLNESS: The patient is a 63-year-old male with multiple admissions for CHF and COPD, recently discharged after p/w recurrent NELLIE, admitted for diuresis. His breathing is @ baseline. No F/C/CP/SOB/N/V/D/C/ abdominal pain/urinary complaints. PAST MEDICAL HISTORY: 1. Congestive heart failure. 2. Obesity. 3. Likely THERON. 4. Asthma. 5. Hypertension. 6. Anemia. 7. Protein-calorie malnutrition. ALLERGIES: Penicillin and tramadol. MEDICATIONS: Active Scripts Medications Dose Route/Sig Max Daily Dose Days Date Category Dose Instructions Unable To Obtain Meds (Unable to Obtain Medications) 1 Ea Ea 09/30/18 Reported Lasix* (Furosemide) 20 Mg Tablet 20 Mg ORAL BID 09/12/18 Rx Pantoprazole 20 Mg Tablet.dr 40 Mg ORAL DAILY 08/22/18 Reported Albuterol Sulfate Hhn* (Albuterol Sulfate) 2.5 Mg/3 Ml Vial.neb 3 Ml INH Q6H PRN 07/30/18 Reported Depakote Er* (Divalproex Sodium) 500 Mg Tab.er.24h 750 Mg ORAL BEDTIME 07/30/18 Reported Iron (Ferrous Sulfate) 325 Mg Tablet Unknown Dose PO 07/21/18 Reported [place] 10-325* (Acetaminophen/Hydrocodone Bitart) 1 Each Tablet 1 Tab ORAL Q4H PRN 06/23/18 Reported PRN PAIN Zocor (Simvastatin) 20 Mg Tablet 20 Mg ORAL BEDTIME 06/23/18 Reported Advair 250-50 Diskus (Salmeterol Xinafoate/Fluticasone) 1 Each Blst.w.dev 1 Puff INH EVERY 12 HOURS 04/22/18 Reported Benazepril Hcl* (Benazepril HCl) 20 Mg Tablet 10 Mg ORAL BID 03/30/18 Reported Singulair* (Montelukast Sodium) 10 Mg Tablet 10 Mg ORAL DAILY 08/31/17 Reported Aspirin* (Aspirin) 81 Mg Tab.chew 81 Mg ORAL DAILY 08/31/17 Reported SOCIAL HISTORY: No tobacco, alcohol, or drug use. FAMILY HISTORY: Noncontributory. REVIEW OF SYSTEMS: Negative other than history of present illness. PHYSICAL EXAMINATION: Last 24 Hour Vital Signs Date Time Temp Pulse Resp B/P (MAP) Pulse Ox O2 Delivery O2 Flow Rate FiO2 10/01/18 17:33 139/71 10/01/18 16:53 68 10/01/18 16:44 98.2 10/01/18 16:23 84 21 100 Room Air 21 10/01/18 16:13 85 16 97 Room Air 21 10/01/18 16:00 98.2 68 20 139/71 (93) 95 10/01/18 11:58 98.3 61 18 134/58 (83) 100 10/01/18 11:43 70 10/01/18 09:17 72 16 95 Room Air 21 10/01/18 09:16 71 16 Room Air 21 10/01/18 09:16 72 16 94 Room Air 21 10/01/18 08:12 Room Air 10/01/18 08:00 98.6 75 20 130/61 (84) 95 10/01/18 07:40 68 10/01/18 04:00 98.2 75 18 133/65 (87) 95 10/01/18 04:00 75 10/01/18 00:00 61 10/01/18 00:00 97.8 61 18 110/59 (76) 94 09/30/18 21:00 Room Air 09/30/18 20:00 65 09/30/18 20:00 98.1 65 20 114/50 (71) 94 09/30/18 19:08 96.7 92 20 151/97 100 Room Air 21 77 GENERAL: He is a well-developed, well-nourished male, in no acute distress. Awake, alert, and oriented x3. HEENT: Normocephalic and atraumatic. Oropharynx clear with moist mucous membranes. NECK: Supple without lymphadenopathy. JVP is elevated. CHEST: Clear. Decreased at the bases. No wheezing. HEART: Regular rhythm. ABDOMEN: Soft and nondistended. EXTREMITIES: No cyanosis, clubbing, 4+ NELLIE ANCILLARY DATA: Laboratory Tests Test 10/01/18 07:13 White Blood Count 6.2 K/UL (4.8-10.8) Red Blood Count 3.76 M/UL (4.70-6.10) L Hemoglobin 9.9 G/DL (14.2-18.0) L Hematocrit 31.3 % (42.0-52.0) L Mean Corpuscular Volume 83 FL (80-99) Mean Corpuscular Hemoglobin 26.3 PG (27.0-31.0) L Mean Corpuscular Hemoglobin Concent 31.6 G/DL (32.0-36.0) L Red Cell Distribution Width 15.4 % (11.6-14.8) H Platelet Count 206 K/UL (150-450) Mean Platelet Volume 8.2 FL (6.5-10.1) Neutrophils (%) (Auto) 66.9 % (45.0-75.0) Lymphocytes (%) (Auto) 22.7 % (20.0-45.0) Monocytes (%) (Auto) 9.6 % (1.0-10.0) Eosinophils (%) (Auto) 0.1 % (0.0-3.0) Basophils (%) (Auto) 0.7 % (0.0-2.0) Sodium Level 141 MMOL/L (136-145) Potassium Level 4.3 MMOL/L (3.5-5.1) Chloride Level 106 MMOL/L (98-107) Carbon Dioxide Level 26 MMOL/L (21-32) Anion Gap 9 mmol/L (5-15) Blood Urea Nitrogen 31 mg/dL (7-18) H Creatinine 0.8 MG/DL (0.55-1.30) Estimat Glomerular Filtration Rate > 60 mL/min (>60) Glucose Level 103 MG/DL (74-106) Calcium Level 9.1 MG/DL (8.5-10.1) Assessment/Plan ASSESSMENT: The patient is a 63-year-old male, lifelong nonsmoker with a history of congestive heart failure with diastolic dysfunction, pulmonary hypertension, obesity, likely obstructive sleep apnea, known pulmonary nodules, anemia and asthma, presenting with recurrent NELLIE PROBLEM LIST: 1. Asthma without evidence of exacerbation. 2. CHF with diastolic dysfunction, 3. Bilateral lower extremity edema, likely secondary to above. 4. Known scattered bilateral subcentimeter nodules, stable on follow-up - per patient being followed up by PULMONARY @ [facility] 5. Anemia. 6. Hypertension. 7. Obesity. 8. Likely THERON. TREATMENT PLAN: 1. Optimize pulmonary hygiene/mobilize as tolerated. 2. P.r.n. O2 to keep saturations greater than 90%. 3. RTC and PRN HHN's 4. Advair 250/50 5. Observe off antibiotics and steroids 6. Monitor volumes, diuresis per cards 7. Incentive spirometry 8. Continue to follow up with [facility] Pul[facility] per the patient. 9. DVT prophylaxis, heparin subcutaneous. 10. Weight-loss diet and exercise discussed again. Rashad Haji MD Oct 01, 2018 18:06
[2018-10-01] MEDS ORDERED: Albuterol/Ipratropium 3ml neb HHN PRN (18:15)
--- NOTE | 2018-10-01 18:19 | NUR ---
CASE MANAGEMENT: REVIEW 63/M PRESENTED TO ED FROM STREET CC: BILATERAL LEG EDEMA . BILATERAL LEG PAIN SI: CHF . ASTHMA T 97.9 HR 80 RR 18 BP 130/80 SAT 98% ROOM AIR H/H 10.5/33.5 BUN 31 ASTS 13 IS: LASIX IV X1 ASA PO X1 ZOFRAN IV X1 MORPHINE IV X1 SOLU MEDROL IV X1 ALBUTEROL HHN X1 PATIENT ADMITTED TO TELEMETRY UNIT 09/30/2018 DCP: PATIENT IS FROM HOME
[2018-10-01] MEDS ORDERED: Albuterol ud Inhalation HHN SCH (19:00)
--- NOTE | 2018-10-01 19:18 | NUR ---
HAND-OFF: Report given to LAKEISHA Gregg.
--- NOTE | 2018-10-01 19:25 | NUR ---
NURSE NOTES: patient received. patient in no acute distress at this time. patient complains of no pain at this time. patient awake alert and oriented x4. IV intact patient and asymptomatic. urinal at bedside. bed in lowest position and locked. call light within reach. will continue to monitor.
[2018-10-01 20:00] VITALS: BP 125/95
--- NOTE | 2018-10-01 20:30 | Cardiology Progress Note ---
Assessment/Plan Assessment/Plan The patient is seen and examined, full consult note will be dictated shortly. Objective Last 24 Hour Vital Signs Date Time Temp Pulse Resp B/P (MAP) Pulse Ox O2 Delivery O2 Flow Rate FiO2 10/01/18 17:33 139/71 10/01/18 16:53 68 10/01/18 16:44 98.2 10/01/18 16:23 84 21 100 Room Air 21 10/01/18 16:13 85 16 97 Room Air 21 10/01/18 16:00 98.2 68 20 139/71 (93) 95 10/01/18 11:58 98.3 61 18 134/58 (83) 100 10/01/18 11:43 70 10/01/18 09:17 72 16 95 Room Air 21 10/01/18 09:16 71 16 Room Air 21 10/01/18 09:16 72 16 94 Room Air 21 10/01/18 08:12 Room Air 10/01/18 08:00 98.6 75 20 130/61 (84) 95 10/01/18 07:40 68 10/01/18 04:00 98.2 75 18 133/65 (87) 95 10/01/18 04:00 75 10/01/18 00:00 61 10/01/18 00:00 97.8 61 18 110/59 (76) 94 09/30/18 21:00 Room Air Intake and Output 09/30/18 10/01/18 18:59 06:59 Output Total 1250 ml 400 ml Balance -1250 ml -400 ml Output Urine Total 1250 ml 400 ml Laboratory Tests Test 10/01/18 07:13 White Blood Count 6.2 K/UL (4.8-10.8) Red Blood Count 3.76 M/UL (4.70-6.10) L Hemoglobin 9.9 G/DL (14.2-18.0) L Hematocrit 31.3 % (42.0-52.0) L Mean Corpuscular Volume 83 FL (80-99) Mean Corpuscular Hemoglobin 26.3 PG (27.0-31.0) L Mean Corpuscular Hemoglobin Concent 31.6 G/DL (32.0-36.0) L Red Cell Distribution Width 15.4 % (11.6-14.8) H Platelet Count 206 K/UL (150-450) Mean Platelet Volume 8.2 FL (6.5-10.1) Neutrophils (%) (Auto) 66.9 % (45.0-75.0) Lymphocytes (%) (Auto) 22.7 % (20.0-45.0) Monocytes (%) (Auto) 9.6 % (1.0-10.0) Eosinophils (%) (Auto) 0.1 % (0.0-3.0) Basophils (%) (Auto) 0.7 % (0.0-2.0) Sodium Level 141 MMOL/L (136-145) Potassium Level 4.3 MMOL/L (3.5-5.1) Chloride Level 106 MMOL/L (98-107) Carbon Dioxide Level 26 MMOL/L (21-32) Anion Gap 9 mmol/L (5-15) Blood Urea Nitrogen 31 mg/dL (7-18) H Creatinine 0.8 MG/DL (0.55-1.30) Estimat Glomerular Filtration Rate > 60 mL/min (>60) Glucose Level 103 MG/DL (74-106) Calcium Level 9.1 MG/DL (8.5-10.1) Prosper Pittman MD Oct 01, 2018 20:30
[2018-10-01] MEDS: Albuterol/Ipratropium 3ml neb HHN SCH (20:36)
[2018-10-01] MEDS: Montelukast 10mg tablet ORAL SCH (20:43)
[2018-10-01] MEDS: Heparin 5000 units/ml inj SUBQ SCH (20:46)
[2018-10-01] MEDS ORDERED: Gadavist 7.5mMol/7.5ml vial IV PRN ×2 (21:15)
[2018-10-02] VITALS: BP 109/80
--- NOTE | 2018-10-02 | Consultation ---
DATE OF CONSULTATION: 10/01/2018 CARDIOLOGY CONSULTATION CONSULTING PHYSICIAN: Prosper Pittman M.D. REFERRING PHYSICIAN: Brittney Shepard M.D. REASON FOR CONSULTATION: Management of lower extremity edema. HISTORY OF PRESENT ILLNESS: The patient is a very unfortunate 63-year-old gentleman, who presents to the hospital for progressive worsening of bilateral lower extremity edema that he has dealt for many years. The patient has had many hospitalizations to this facility with congestive heart failure exacerbation as well as chronic obstructive pulmonary disease exacerbation. He claims that he only smoked for about six years. I reviewed 2D echocardiography from previous admissions including the one in 2018 and that study revealed that the patient had normal LV systolic and diastolic function with no evidence of heart failure or any echocardiographic signs of increased intracardiac filling pressure. In fact in this admission, the patient was diagnosed with acute congestive heart failure, however, beta-natriuretic peptide is within normal limits. 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 PAST MEDICAL HISTORY: 1. Hypertension. 2. History of asthma. 3. History of bilateral lower extremity edema. 4. History of many hospitalization due to acute exacerbation of chronic obstructive pulmonary disease as well as acute exacerbation of congestive heart failure. FAMILY HISTORY: None. PAST SURGICAL HISTORY: None. SOCIAL HISTORY: Smoked only for six years, not a heavy smoker. Denies any alcohol or illicit drug use. ALLERGIES: To penicillin and tramadol. REVIEW OF SYSTEMS: A 12-system review done essentially negative except what mentioned in the history of present illness. MEDICATIONS: List of medications at home include albuterol inhalers at 3 mL inhaler hours p.r.n. shortness of breath, aspirin 81 mg daily, benazepril 10 mg p.o. twice daily, Depakote 750 mg at bedtime, ferrous sulfate 325 one tablet p.o. daily, Advair 250/50 Diskus one inhaler q.12 hours, furosemide 20 mg twice daily, [place] 10/325 one tablet q.4 h. p.r.n. pain, Singulair 10 mg p.o. daily, pantoprazole 40 mg p.o. daily, and simvastatin mg p.o. at bedtime. PHYSICAL EXAMINATION: VITAL SIGNS: Blood pressure at the time of arrival to the hospital shows 130/80, pulse of 80, respirations 18, O2 saturation 98% on room air, and temperature 97.9 degrees Fahrenheit. GENERAL: The patient is a very angry 63-year-old individual gentleman, who is in no apparent respiratory distress. HEENT: Atraumatic and normocephalic. Anicteric. Pupils are equal, round, and reactive to light and accommodation. Extraocular muscles intact. NECK: JVP is less than 5 cm. No carotid bruits. Carotid upstrokes 2+ bilaterally. CARDIOVASCULAR: Normal S1, S2. Distant heart sounds. No murmurs, gallops, or rubs. PMI is at fourth intercostal space in the midclavicular line. LUNGS: There is bilateral expiratory rhonchi, prolonged expiratory phase of breathing. No crackles. ABDOMEN: Soft, nontender, and nondistended. No hepatosplenomegaly. Positive bowel sounds. EXTREMITIES: There is 3+ bilateral pitting edema. LABORATORY AND DIAGNOSTIC DATA: Laboratory findings, sodium 145, potassium 3.9, chloride 109, bicarbonate 25, BUN of 31, creatinine 1.1, glucose 93, and calcium is 9.8. Troponin I is 0.0. ProBNP was 89. WBC 5.8, hemoglobin 10.5, hematocrit 33.5, and platelet count is 207,000. A 12-lead electrocardiogram, not available in the chart. ASSESSMENT AND PLAN: The patient is a very unfortunate 63-year-old gentleman, seen in Cardiology consultation. 1. Dyspnea in this patient is due to acute exacerbation of asthma. I do not believe that the patient has chronic obstructive pulmonary disease, given only six years history of tobacco use. In fact, his 2D echocardiography in 2018 shows normal right atrial and right ventricular cavity, which make me believe that the patient has asthma rather than chronic obstructive pulmonary disease. The patient has also hyperdynamic LV function with LVEF of 75 to 80%. Transmitral flow velocity also shows normal intracardiac filling pressure and normal left atrial pressure. This patient has recent nonischemic nuclear stress test. 2. Bilateral lower extremity edema, unclear etiology. I would avoid calcium channel marlyn. Potential side effects of peripheral edema. The patient will require investigation of bilateral lower extremity including MRI of the abdomen and pelvis. Possible compressive changes on the inferior vena cava. 3. Bipolar disorder. I would like to thank, Dr. Shepard, for allowing me to participate in the care of this patient. Prosper Pittman M.D. DR: KATHERINE JOB#: [id number] CC:
[2018-10-02] MEDS: HYDROcodone/Acetamin 10/325 tab ORAL PRN ×6 (00:26→20:34)
[2018-10-02] MEDS: Albuterol/Ipratropium 3ml neb HHN SCH ×4 (01:25→20:08)
[2018-10-02 04:00] VITALS: BP 128/73
--- NOTE | 2018-10-02 04:29 | History and Physical Report ---
DATE OF ADMISSION: 09/30/2018 HISTORY OF PRESENT ILLNESS: The patient is admitted for COPD exacerbation as well as CHF exacerbation. The patient has recurrent admissions to the hospital. The patient has been complaining of worsening edema, orthopnea, and shortness of breath and denies chest pain . PAST MEDICAL HISTORY: Significant for COPD, CHF, iron-deficiency anemia, GERD, hyperlipidemia, severe edema of lower extremity, and anemia. PAST SURGICAL HISTORY: Right ankle surgery and appendectomy. ALLERGIES: To tramadol and penicillin. MEDICATIONS: Aspirin, benazepril, , Lasix, montelukast, Protonix, and simvastatin. SOCIAL HISTORY: History of smoking and history of marijuana use. FAMILY HISTORY: Noncontributory. REVIEW OF SYSTEMS: HEENT: Denies headaches. . RESPIRATORY: Denies shortness of breath. Denies cough. CARDIOVASCULAR: Denies chest pain. Denies orthopnea. GASTROINTESTINAL: Denies nausea, vomiting, or diarrhea. EXTREMITIES: There was worsening edema and has chronic pain syndrome. CENTRAL NERVOUS SYSTEMS: Denies change in vision or speech pattern. PHYSICAL EXAMINATION: VITAL SIGNS: Temperature 98.2, pulse 84, and blood pressure 139/71. HEENT: PERRLA. NECK: Supple. No lymphadenopathy. CHEST: Clear to auscultation. CARDIOVASCULAR: Regular rate and rhythm. GASTROINTESTINAL: Soft and distended. Positive bowel sounds. EXTREMITIES: 3+ pitting edema. Reflexes equal on both sides. Moves all four extremities. DIAGNOSTIC DATA: CT of lung did not show any significant findings. LABORATORY DATA: WBC of 5.8, hemoglobin 10.5, platelets of 207. Sodium 145, potassium of 3.9, BUN of 31, creatinine 1.1, and glucose of 93. ASSESSMENT AND PLAN: CHF exacerbation. At this point, the patient does have also COPD exacerbation and respiratory insufficiency. I have consulted Dr. Haji and Dr. Hardwick as well as Dr. Pittman for the CHF and COPD exacerbation and Dr. Hurley for the pain management control. Brittney Shepard M.D. DR: ANAHY JOB#: [id number] CC:
--- NOTE | 2018-10-02 07:20 | NUR ---
NURSE NOTES: Patient received from Marysol Lemus Patient in no acute distress at this time. Patient states no pain at this time. Patient awake alert and oriented x4. IV intact patient and asymptomatic. Patient is on heart monitor at 65 SR. Bed in lowest position, x2 side rails up and locked. Call light within reach. will continue to monitor. @8am: Patient states he is not interested in MRI and states he has done it in [facility]. Will contact MD about patient's refusal of MRI.
--- NOTE | 2018-10-02 07:27 | NUR ---
HAND-OFF: Report given to loly alonso.
[2018-10-02 08:00] VITALS: BP 116/55
[2018-10-02] MEDS: Heparin 5000 units/ml inj SUBQ SCH ×2 (08:26→20:35)
[2018-10-02] MEDS: Aspirin Baby 81mg ORAL SCH (08:30)
[2018-10-02] MEDS: Benazepril 10mg tab ORAL SCH ×2 (08:31→17:55)
--- NOTE | 2018-10-02 09:28 | NUR ---
NURSE NOTES: Contacted Dr. Pittman's [phone]. Awaiting callback. Included Dr. Sy Oscar's , smearer, phone number from [facility] .
[2018-10-02] MEDS: Advair 250/50 Inhaler - 14 dose INH SCH ×2 (09:30→21:13)
--- NOTE | 2018-10-02 10:51 | General Progress Note ---
Assessment/Plan Problem List: (1) CHF (congestive heart failure) ICD Codes: I50.9 - Heart failure, unspecified SNOMED: 20539371 (2) MDD (major depressive disorder) ICD Codes: F32.9 - Major depressive disorder, single episode, unspecified SNOMED: 869982146 (3) Edema ICD Codes: R60.9 - Edema, unspecified SNOMED: 829035284, 060709976 (4) Anemia, iron deficiency ICD Codes: D50.9 - Iron deficiency anemia, unspecified SNOMED: 81115889 (5) Pain ICD Codes: R52 - Pain, unspecified SNOMED: 11189203 (6) CHF exacerbation ICD Codes: I50.9 - Heart failure, unspecified SNOMED: 52395297 (7) Edema ICD Codes: R60.9 - Edema, unspecified SNOMED: 492742570, 170793774 Status: progressing Assessment/Plan chf exacerbation r/o non compliance w meds and diet afebrile severe leg edema copd is under control Subjective Allergies: Coded Allergies: PENICILLINS (Verified Allergy, Unknown, 08/31/17) TRAMADOL (Verified Allergy, Unknown, 08/31/17) Subjective chronic pain Objective Last 24 Hour Vital Signs Date Time Temp Pulse Resp B/P (MAP) Pulse Ox O2 Delivery O2 Flow Rate FiO2 10/02/18 10:21 Room Air 10/02/18 10:20 Room Air 10/02/18 09:00 98.3 10/02/18 08:31 128/73 10/02/18 08:00 98.1 67 16 116/55 (75) 96 10/02/18 07:32 70 18 99 Room Air 21 10/02/18 07:22 65 18 99 Room Air 21 10/02/18 07:19 65 18 Room Air 10/02/18 04:00 70 10/02/18 04:00 98.3 65 19 128/73 (91) 96 10/02/18 01:38 75 18 99 Room Air 21 10/02/18 01:26 71 18 99 Room Air 21 10/02/18 00:00 73 10/02/18 00:00 98.8 69 19 109/80 (90) 93 10/01/18 22:47 73 18 98 Room Air 10/01/18 22:47 73 18 98 Room Air 21 10/01/18 21:00 Room Air Room Air 10/01/18 20:46 79 18 98 Room Air 21 10/01/18 20:36 77 18 Room Air 21 10/01/18 20:36 77 18 96 Room Air 21 10/01/18 20:00 86 10/01/18 20:00 98.7 74 17 125/95 (105) 96 10/01/18 17:33 139/71 10/01/18 16:53 68 10/01/18 16:23 84 21 100 Room Air 21 10/01/18 16:13 85 16 97 Room Air 21 10/01/18 16:00 98.2 68 20 139/71 (93) 95 10/01/18 11:58 98.3 61 18 134/58 (83) 100 10/01/18 11:43 70 Intake and Output 10/01/18 10/02/18 19:00 07:00 Intake Total 480 ml 2300 ml Output Total 1700 ml Balance -1220 ml 2300 ml Intake Oral 480 ml 2300 ml Output Urine Total 1700 ml Height (Feet): 5 Height (Inches): 11.00 Weight (Pounds): 338 Cardiovascular: normal rate Respiratory/Chest: lungs clear Abdomen: soft Edema: severe edema, pitting Brittney Shepard MD Oct 02, 2018 10:51
[2018-10-02 12:00] VITALS: BP 122/74
--- NOTE | 2018-10-02 12:13 | NUR ---
RD ASSESSMENT & RECOMMENDATIONS SEE CARE ACTIVITY FOR COMPLETE ASSESSMENT DAILY ESTIMATED NEEDS: Needs based on cardiac, pulmonary, obesity, 105kg abw 20-25 kcals/kg 6552-2404 total kcals 1-1.5 g protein/kg 105-158 g total protein Fluid per MD/ on lasix NUTRITION DIAGNOSIS: * Decreased sodium and fat intake needs R/T cardiac hx as evidenced by CHF dx, BLE 2+ edema, on diuretics, w/ BMI >40 at this time. CURRENT DIET: Cardiac PO DIET RECOMMENDATIONS: Maintain CARDIAC DIET ADDITIONAL RECOMMENDATIONS: * Daily standing wt or calibrated bedscale wt - CHF dx, on diuretics * Monitor lytes daily, replete as needed- on diuretics * Diet edu on Low Na diet provided on past admissions * Add HIGH PROTEIN snacks BID in b/w meals * B-complex daily .
[2018-10-02 16:00] VITALS: BP 126/64
--- NOTE | 2018-10-02 18:04 | NUR ---
CASE MANAGEMENT: REVIEW 10/02/2018 SI: CHF EXACERBATION. ASTHMA. T 97.7 HR 69 RR 16 B/P 126/64 SATS 98% ON RA NO LABS TODAY IS: LASIX PO BID LOTENSIN PO BID ASA PO QD ALBUTEROL Q6H HHN SINGULAIR PO QHS TELE STATUS DCP: PATIENT TO BE DISCHARGED TO BE DISCHARGED TO HOME ONCE MEDICALLY CLEARED. PLAN OF CARE: CT ABD/PELVIS
--- NOTE | 2018-10-02 19:59 | Cardiology Progress Note ---
Assessment/Plan Assessment/Plan 1. Dyspnea in this patient is due to acute exacerbation of asthma. 2D echocardiography in 2018 shows normal right atrial and right ventricular cavity , hyperdynamic LV function with LVEF of 75 to 80%. Transmitral flow velocity also shows normal intracardiac filling pressure and normal left atrial pressure. Recent cardiac MRI at [facility] was normal, nuclear stress test was nonischemic. 2. Bilateral lower extremity edema, unknown etiology, CT scan of the abdomen and pelvis ordered. 3. Bipolar disorder. Subjective Subjective Sinus rhythm at rate of 69. Cardiac MRI and Echocardiogram from [facility] reviewed. Objective Last 24 Hour Vital Signs Date Time Temp Pulse Resp B/P (MAP) Pulse Ox O2 Delivery O2 Flow Rate FiO2 10/02/18 17:55 126/64 10/02/18 16:59 98.3 10/02/18 16:00 97.7 69 16 126/64 (84) 98 10/02/18 15:09 75 18 99 Room Air 21 10/02/18 14:56 72 18 98 Room Air 21 10/02/18 13:02 64 10/02/18 12:00 98.3 82 16 122/74 (90) 98 10/02/18 10:21 Room Air 21 10/02/18 10:20 Room Air 21 10/02/18 09:00 Room Air Room Air 10/02/18 08:31 128/73 10/02/18 08:00 98.1 67 16 116/55 (75) 96 10/02/18 07:45 68 10/02/18 07:32 70 18 99 Room Air 21 10/02/18 07:22 65 18 99 Room Air 21 10/02/18 07:19 65 18 Room Air 21 10/02/18 04:00 70 10/02/18 04:00 98.3 65 19 128/73 (91) 96 10/02/18 01:38 75 18 99 Room Air 21 10/02/18 01:26 71 18 99 Room Air 21 10/02/18 00:00 73 10/02/18 00:00 98.8 69 19 109/80 (90) 93 10/01/18 22:47 73 18 98 Room Air 21 10/01/18 22:47 73 18 98 Room Air 21 10/01/18 21:00 Room Air Room Air 10/01/18 20:46 79 18 98 Room Air 21 10/01/18 20:36 77 18 Room Air 21 10/01/18 20:36 77 18 96 Room Air 21 10/01/18 20:00 86 10/01/18 20:00 98.7 74 17 125/95 (105) 96 Intake and Output 10/01/18 10/02/18 19:00 07:00 Intake Total 480 ml 2300 ml Output Total 1700 ml Balance -1220 ml 2300 ml Intake Oral 480 ml 2300 ml Output Urine Total 1700 ml 2D Echo: Normal LV systolic and diastolic function, LVEF >75% Microbiology Date/Time Source Procedure Growth Status 09/30/18 12:10 Nasal Nares MRSA Culture - Final NO METHICILLIN RESISTANT STAPH AUREUS... Complete 09/30/18 12:10 Rectum VRE Culture - Final NO VANCOMYCIN RESISTANT ENTEROCOCCUS ... Complete 09/30/18 12:10 Rectum - Final NO CARBAPENEM-RESISTANT ENTEROBACTERI... Complete Objective GENERAL: The patient is a very angry 63-year-old individual gentleman, who is in no apparent respiratory distress. HEENT: Atraumatic and normocephalic. Anicteric. Pupils are equal, round, and reactive to light and accommodation. Extraocular muscles intact. NECK: JVP is less than 5 cm. No carotid bruits. Carotid upstrokes 2+ bilaterally. CARDIOVASCULAR: Normal S1, S2. Distant heart sounds. No murmurs, gallops, or rubs. PMI is at fourth intercostal space in the midclavicular line. LUNGS: There is bilateral expiratory rhonchi, prolonged expiratory phase of breathing. No crackles. ABDOMEN: Soft, nontender, and nondistended. No hepatosplenomegaly. Positive bowel sounds. EXTREMITIES: There is 3+ bilateral pitting edema. Prosper Pittman MD Oct 02, 2018 19:59
[2018-10-02 20:00] VITALS: BP 118/56
--- NOTE | 2018-10-02 20:00 | NUR ---
HAND-OFF: Report given to Giovany Stack RN. Endorse about patient removing IV at 5pm. Made one attempt to insert IV and was unsuccessful.
--- NOTE | 2018-10-02 20:01 | NUR ---
NURSE NOTES: Got report from Ezra SUAZO.Pt in stable condition.Denies any pain. No distress noted. Pt resting in bed comfortably. Bed in low and locked position, call light within reach, bedside table wtihin reach.Continue to monitor.
[2018-10-02] MEDS: Montelukast 10mg tablet ORAL SCH (20:34)
--- NOTE | 2018-10-02 21:31 | Pulmonology Progress Note ---
Assessment/Plan Assessment/Plan ASSESSMENT: The patient is a 63-year-old male, lifelong nonsmoker with a history of congestive heart failure with diastolic dysfunction, pulmonary hypertension, obesity, likely obstructive sleep apnea, known pulmonary nodules, anemia and asthma, presenting with recurrent NELLIE PROBLEM LIST: 1. Asthma without evidence of exacerbation. 2. CHF with diastolic dysfunction, 3. Bilateral lower extremity edema, likely secondary to above. 4. Known scattered bilateral subcentimeter nodules, stable on follow-up - per patient being followed up by PULMONARY @ [facility] 5. Anemia. 6. Hypertension. 7. Obesity. 8. Likely THERON. TREATMENT PLAN: 1. Optimize pulmonary hygiene/mobilize as tolerated. 2. P.r.n. O2 to keep saturations greater than 90%. 3. RTC and PRN HHN's 4. Advair 250/50 5. Observe off antibiotics and steroids 6. Monitor volumes, Lasix 20 PO BID per cards 7. Incentive spirometry 8. Continue to follow up with [facility] per the patient. 9. F/U CT AP 10. DVT prophylaxis, heparin subcutaneous. 11. Weight-loss diet and exercise discussed again. Subjective Allergies: Coded Allergies: PENICILLINS (Verified Allergy, Unknown, 08/31/17) TRAMADOL (Verified Allergy, Unknown, 08/31/17) Subjective AFVSS on RA No cough less SOB less edema no NVDC Cardiology eval noted - CT AP pending, recent neg cardiac w/u @ [facility] Objective Last 24 Hour Vital Signs Date Time Temp Pulse Resp B/P (MAP) Pulse Ox O2 Delivery O2 Flow Rate FiO2 10/02/18 21:15 78 18 97 Room Air 21 10/02/18 21:13 78 18 97 Room Air 21 10/02/18 20:18 81 18 99 Room Air 21 10/02/18 20:08 76 18 97 Room Air 21 10/02/18 17:55 126/64 10/02/18 16:59 98.3 10/02/18 16:00 97.7 69 16 126/64 (84) 98 10/02/18 15:34 76 10/02/18 15:09 75 18 99 Room Air 21 10/02/18 14:56 72 18 98 Room Air 21 10/02/18 13:02 64 10/02/18 12:00 98.3 82 16 122/74 (90) 98 10/02/18 10:21 Room Air 21 10/02/18 10:20 Room Air 21 10/02/18 09:00 Room Air Room Air 10/02/18 08:31 128/73 10/02/18 08:00 98.1 67 16 116/55 (75) 96 10/02/18 07:45 68 10/02/18 07:32 70 18 99 Room Air 21 10/02/18 07:22 65 18 99 Room Air 21 10/02/18 07:19 65 18 Room Air 21 10/02/18 04:00 70 10/02/18 04:00 98.3 65 19 128/73 (91) 96 10/02/18 01:38 75 18 99 Room Air 21 10/02/18 01:26 71 18 99 Room Air 21 10/02/18 00:00 73 10/02/18 00:00 98.8 69 19 109/80 (90) 93 10/01/18 22:47 73 18 98 Room Air 21 10/01/18 22:47 73 18 98 Room Air 21 Intake and Output 10/01/18 10/02/18 19:00 07:00 Intake Total 480 ml 2300 ml Output Total 1700 ml Balance -1220 ml 2300 ml Intake Oral 480 ml 2300 ml Output Urine Total 1700 ml General Appearance: WD/WN, no acute distress HEENT: normocephalic, atraumatic, anicteric, mucous membranes moist Respiratory/Chest: chest wall non-tender, lungs clear, normal breath sounds, no respiratory distress, no accessory muscle use Cardiovascular: normal peripheral pulses, normal rate, regular rhythm Abdomen: normal bowel sounds, soft, non tender, no organomegaly, non distended , no mass Extremities: no cyanosis, no clubbing, other - 2+ NELLIE Microbiology Date/Time Source Procedure Growth Status 09/30/18 12:10 Nasal Nares MRSA Culture - Final NO METHICILLIN RESISTANT STAPH AUREUS... Complete 09/30/18 12:10 Rectum VRE Culture - Final NO VANCOMYCIN RESISTANT ENTEROCOCCUS ... Complete 09/30/18 12:10 Rectum - Final NO CARBAPENEM-RESISTANT ENTEROBACTERI... Complete Current Medications Medications (Trade) Dose Ordered Sig/Virgen Route PRN Reason Start Time Stop Time Status Last Admin Dose Admin Acetaminophen/ Hydrocodone Bitart ([place] 10/325) 1 tab Q4H PRN ORAL For Pain 09/30/18 15:45 10/07/18 15:44 10/02/18 20:34 Albuterol/ Ipratropium (Albuterol/ Ipratropium) 3 ml Q4H PRN HHN Shortness of Breath 10/01/18 18:15 10/06/18 18:14 Albuterol/ Ipratropium (Albuterol/ Ipratropium) 3 ml Q6HRT HHN 10/01/18 19:00 10/06/18 18:59 10/02/18 20:08 Aspirin (ASA) 81 mg DAILY ORAL 10/01/18 09:00 10/31/18 08:59 10/02/18 08:30 Benazepril HCl (Lotensin) 20 mg BID ORAL 10/01/18 18:00 10/31/18 17:59 10/02/18 17:55 Ferrous Sulfate (Feosol) 325 mg DAILY ORAL 10/01/18 09:00 10/31/18 08:59 10/02/18 08:30 Furosemide (Lasix) 20 mg BID ORAL 09/30/18 18:00 10/30/18 17:59 10/02/18 17:55 Gadobutrol (Gadavist) 7.5 mmol NOW PRN IV Radiology Procedure 10/01/18 21:15 10/05/18 21:03 Gadobutrol (Gadavist) 7.5 mmol NOW PRN IV Radiology Procedure 10/01/18 21:15 10/05/18 21:03 Heparin Sodium (Porcine) (Heparin 5000 units/ml) 5,000 units EVERY 12 HOURS SUBQ 10/01/18 21:00 10/31/18 20:59 Montelukast Sodium (Singulair) 10 mg QHS ORAL 09/30/18 21:00 10/30/18 20:59 10/02/18 20:34 Pantoprazole (Protonix) 40 mg DAILY ORAL 10/02/18 09:00 11/01/18 08:59 10/02/18 08:30 Salmeterol Xinafoate/ Fluticasone (Advair 250/50 Diskus) 1 puffs EVERY 12 HOURS INH 10/01/18 09:00 10/31/18 08:59 10/02/18 21:13 Rashad Haji MD Oct 02, 2018 21:31
[2018-10-03] VITALS: BP 117/59
[2018-10-03] MEDS: HYDROcodone/Acetamin 10/325 tab ORAL PRN ×6 (00:34→20:56)
[2018-10-03] MEDS: Albuterol/Ipratropium 3ml neb HHN SCH ×4 (01:31→20:04)
[2018-10-03 04:00] VITALS: BP 133/70
--- NOTE | 2018-10-03 07:20 | NUR ---
HAND-OFF: Report given to Oracio SUAZO. Endorsed plan of care.
--- NOTE | 2018-10-03 07:25 | NUR ---
Received bedside report from Giovany. Pt A/O x4, not complaining of pain at this time but requested Schedule pain medication for 8;30. Pt has no IV he refuses to have one "there is no running fluids. Bed on lowest position with brakes on. Call light within reach.
[2018-10-03 08:00] VITALS: BP 130/57
[2018-10-03] MEDS: Advair 250/50 Inhaler - 14 dose INH SCH ×2 (08:31→20:57)
[2018-10-03] MEDS: Heparin 5000 units/ml inj SUBQ SCH ×2 (08:42→21:00)
[2018-10-03] MEDS: Aspirin Baby 81mg ORAL SCH (08:42)
[2018-10-03] MEDS: Benazepril 10mg tab ORAL SCH ×2 (08:43→16:51)
--- NOTE | 2018-10-03 12:07 | General Progress Note ---
Assessment/Plan Problem List: (1) CHF (congestive heart failure) ICD Codes: I50.9 - Heart failure, unspecified SNOMED: 89382980 (2) MDD (major depressive disorder) ICD Codes: F32.9 - Major depressive disorder, single episode, unspecified SNOMED: 986595913 (3) Edema ICD Codes: R60.9 - Edema, unspecified SNOMED: 147455369, 987890922 (4) Anemia, iron deficiency ICD Codes: D50.9 - Iron deficiency anemia, unspecified SNOMED: 06426447 (5) Pain ICD Codes: R52 - Pain, unspecified SNOMED: 13788987 (6) CHF exacerbation ICD Codes: I50.9 - Heart failure, unspecified SNOMED: 50783064 (7) Edema ICD Codes: R60.9 - Edema, unspecified SNOMED: 065498876, 379722114 Status: progressing Assessment/Plan chf exacerbation r/o non compliance w meds and diet chronic pain reviwed chart and meds severe leg edema Subjective ROS Limited/Unobtainable: Yes Allergies: Coded Allergies: PENICILLINS (Verified Allergy, Unknown, 08/31/17) TRAMADOL (Verified Allergy, Unknown, 08/31/17) Subjective chronic pain Objective Last 24 Hour Vital Signs Date Time Temp Pulse Resp B/P (MAP) Pulse Ox O2 Delivery O2 Flow Rate FiO2 10/03/18 09:10 98.3 10/03/18 09:00 Room Air Room Air 10/03/18 08:43 130/57 10/03/18 08:31 74 16 97 Room Air 10/03/18 08:31 77 16 97 Room Air 10/03/18 08:00 97.7 82 18 130/57 (81) 98 10/03/18 07:45 80 16 99 Room Air 10/03/18 07:40 79 16 96 Room Air 10/03/18 04:00 64 10/03/18 04:00 98.1 60 18 133/70 (91) 99 10/03/18 01:41 78 18 99 Room Air 21 10/03/18 01:31 77 18 98 Room Air 21 10/03/18 00:00 98.0 62 18 117/59 (78) 99 10/03/18 00:00 62 10/02/18 21:15 78 18 97 Room Air 21 10/02/18 21:13 78 18 97 Room Air 21 10/02/18 21:00 Room Air Room Air 10/02/18 20:18 81 18 99 Room Air 21 10/02/18 20:08 76 18 97 Room Air 21 10/02/18 20:00 83 10/02/18 20:00 97.7 68 19 118/56 (76) 95 10/02/18 17:55 126/64 10/02/18 16:00 97.7 69 16 126/64 (84) 98 10/02/18 15:34 76 10/02/18 15:09 75 18 99 Room Air 21 10/02/18 14:56 72 18 98 Room Air 10/02/18 13:02 64 Intake and Output 10/02/18 10/03/18 18:59 06:59 Intake Total 600 ml Output Total 1200 ml 2100 ml Balance -600 ml -2100 ml Intake Oral 600 ml Output Urine Total 1200 ml 2100 ml # Voids 2 Height (Feet): 5 Height (Inches): 11.00 Weight (Pounds): 338 Neck: supple Cardiovascular: normal rate Respiratory/Chest: lungs clear Abdomen: soft Brittney Shepard MD Oct 03, 2018 12:07
[2018-10-03] MEDS ORDERED: Tubing IV Secondary IV ONE (15:19)
--- NOTE | 2018-10-03 18:16 | Cardiology Progress Note ---
Assessment/Plan Assessment/Plan 1. Dyspnea in this patient is due to acute exacerbation of asthma. 2D echocardiography in 2018 shows normal right atrial and right ventricular cavity , hyperdynamic LV function with LVEF of 75 to 80%. Transmitral flow velocity also shows normal intracardiac filling pressure and normal left atrial pressure. Recent cardiac MRI at [facility] was normal, nuclear stress test was nonischemic. 2. Bilateral lower extremity edema, unknown etiology, CT scan of the abdomen and pelvis ordered. 3. Mild pulmonary HTN with RVSP at 41 mmHg by echo, normal V/Q scan. Subjective Subjective Sinus rhythm at rate of 79. Awaiting CT of abdomen and pelvis with/without contrast to which he agreed. Objective Last 24 Hour Vital Signs Date Time Temp Pulse Resp B/P (MAP) Pulse Ox O2 Delivery O2 Flow Rate FiO2 10/03/18 16:51 130/57 10/03/18 13:45 79 18 98 Room Air 21 10/03/18 13:38 74 12 95 Room Air 21 10/03/18 13:15 98.3 10/03/18 09:00 Room Air Room Air 10/03/18 08:43 130/57 10/03/18 08:31 74 16 97 Room Air 21 10/03/18 08:31 77 16 97 Room Air 21 10/03/18 08:00 97.7 82 18 130/57 (81) 98 10/03/18 07:45 80 16 99 Room Air 21 10/03/18 07:40 79 16 96 Room Air 21 10/03/18 04:00 64 10/03/18 04:00 98.1 60 18 133/70 (91) 99 10/03/18 01:41 78 18 99 Room Air 21 10/03/18 01:31 77 18 98 Room Air 21 10/03/18 00:00 98.0 62 18 117/59 (78) 99 10/03/18 00:00 62 10/02/18 21:15 78 18 97 Room Air 21 10/02/18 21:13 78 18 97 Room Air 21 10/02/18 21:00 Room Air Room Air 10/02/18 20:18 81 18 99 Room Air 21 10/02/18 20:08 76 18 97 Room Air 21 10/02/18 20:00 83 10/02/18 20:00 97.7 68 19 118/56 (76) 95 Intake and Output 10/02/18 10/03/18 19:00 07:00 Intake Total 600 ml Output Total 1200 ml 2100 ml Balance -600 ml -2100 ml Intake Oral 600 ml Output Urine Total 1200 ml 2100 ml # Voids 2 2D Echo: Normal LV systolic and diastolic function, LVEF >75%, PAP 41 mmHg Objective HEENT: Atraumatic and normocephalic. Anicteric. Pupils are equal, round, and reactive to light and accommodation. Extraocular muscles intact. NECK: JVP is less than 5 cm. No carotid bruits. Carotid upstrokes 2+ bilaterally. CARDIOVASCULAR: Normal S1, S2. Distant heart sounds. No murmurs, gallops, or rubs. PMI is at fourth intercostal space in the midclavicular line. LUNGS: There is bilateral expiratory rhonchi, prolonged expiratory phase of breathing. No crackles. ABDOMEN: Soft, nontender, and nondistended. No hepatosplenomegaly. Positive bowel sounds. EXTREMITIES: There is 3+ bilateral pitting edema. Prosper Pittman MD Oct 03, 2018 18:16
--- NOTE | 2018-10-03 18:30 | NUR ---
NURSE NOTES: PT COMPLAINING OF CHEST PAIN 05/28. Administered nitro x3 pt still complained of chest pain 03/28, RN administer 4mg and pt was placed on 2L N/C Addendum: 10/03/18 at 2020 by TAD DOYLE RN RN WRONG PATIENT DISREGARD ASSESSMENT
--- NOTE | 2018-10-03 19:15 | NUR ---
Pt resting in his bed with open eyes no complain of chest pain or SOB at this time. will endorse and continue to monitor.
[2018-10-03 20:00] VITALS: BP 121/67
--- NOTE | 2018-10-03 20:11 | Pulmonology Progress Note ---
Assessment/Plan Assessment/Plan Pulmonary Progress Note Assessment/Plan ASSESSMENT: The patient is a 63-year-old male, lifelong nonsmoker with a history of congestive heart failure with diastolic dysfunction, pulmonary hypertension, obesity, likely obstructive sleep apnea, known pulmonary nodules, anemia and asthma, presenting with recurrent NELLIE PROBLEM LIST: 1. Asthma without evidence of exacerbation. 2. CHF with diastolic dysfunction, 3. Bilateral lower extremity edema, likely secondary to above. 4. Known scattered bilateral subcentimeter nodules, stable on follow-up - per patient being followed up by PULMONARY @ [facility] 5. Anemia. 6. Hypertension. 7. Obesity. 8. Likely THERON. TREATMENT PLAN: 1. Optimize pulmonary hygiene/mobilize as tolerated. 2. P.r.n. O2 to keep saturations greater than 90%. 3. RTC and PRN HHN's 4. Advair 250/50 5. Observe off antibiotics and steroids 6. Monitor volumes, Lasix 20 PO BID per cards 7. Incentive spirometry 8. Continue to follow up with [facility] Pulmonary Clinic per the patient. 9. F/U CT AP 10. DVT prophylaxis, heparin subcutaneous. 11. Weight-loss diet and exercise discussed again. Subjective Allergies: Coded Allergies: PENICILLINS (Verified Allergy, Unknown, 08/31/17) TRAMADOL (Verified Allergy, Unknown, 08/31/17) Subjective AFVSS on RA No cough less SOB less edema no NVDC Cardiology eval noted - CT AP pending, recent neg cardiac w/u @ [facility] Objective Last 24 Hour Vital Signs Date Time Temp Pulse Resp B/P (MAP) Pulse Ox O2 Delivery O2 Flow Rate FiO2 10/02/18 21:15 78 18 97 Room Air 21 10/02/18 21:13 78 18 97 Room Air 21 10/02/18 20:18 81 18 99 Room Air 21 10/02/18 20:08 76 18 97 Room Air 21 10/02/18 17:55 126/64 10/02/18 16:59 98.3 10/02/18 16:00 97.7 69 16 126/64 (84) 98 10/02/18 15:34 76 10/02/18 15:09 75 18 99 Room Air 21 10/02/18 14:56 72 18 98 Room Air 21 10/02/18 13:02 64 10/02/18 12:00 98.3 82 16 122/74 (90) 98 10/02/18 10:21 Room Air 21 10/02/18 10:20 Room Air 21 10/02/18 09:00 Room Air Room Air 10/02/18 08:31 128/73 10/02/18 08:00 98.1 67 16 116/55 (75) 96 10/02/18 07:45 68 10/02/18 07:32 70 18 99 Room Air 21 10/02/18 07:22 65 18 99 Room Air 21 10/02/18 07:19 65 18 Room Air 21 10/02/18 04:00 70 10/02/18 04:00 98.3 65 19 128/73 (91) 96 10/02/18 01:38 75 18 99 Room Air 21 10/02/18 01:26 71 18 99 Room Air 21 10/02/18 00:00 73 10/02/18 00:00 98.8 69 19 109/80 (90) 93 10/01/18 22:47 73 18 98 Room Air 21 10/01/18 22:47 73 18 98 Room Air 21 Intake and Output 10/01/18 10/02/18 19:00 07:00 Intake Total 480 ml 2300 ml Output Total 1700 ml Balance -1220 ml 2300 ml Intake Oral 480 ml 2300 ml Output Urine Total 1700 ml General Appearance: WD/WN, no acute distress HEENT: normocephalic, atraumatic, anicteric, mucous membranes moist Respiratory/Chest: chest wall non-tender, lungs clear, normal breath sounds, no respiratory distress, no accessory muscle use Cardiovascular: normal peripheral pulses, normal rate, regular rhythm Abdomen: normal bowel sounds, soft, non tender, no organomegaly, non distended , no mass Extremities: no cyanosis, no clubbing, other - 2+ NELLIE Microbiology Date/Time Source Procedure Growth Status 09/30/18 12:10 Nasal Nares MRSA Culture - Final NO METHICILLIN RESISTANT STAPH AUREUS... Complete 09/30/18 12:10 Rectum VRE Culture - Final NO VANCOMYCIN RESISTANT ENTEROCOCCUS ... Complete 09/30/18 12:10 Rectum - Final NO CARBAPENEM-RESISTANT ENTEROBACTERI... Complete Current Medications Medications (Trade) Dose Ordered Sig/Virgen Route PRN Reason Start Time Stop Time Status Last Admin Dose Admin Acetaminophen/ Hydrocodone Bitart ([place] 10/325) 1 tab Q4H PRN ORAL For Pain 09/30/18 15:45 10/07/18 15:44 10/02/18 20:34 Albuterol/ Ipratropium (Albuterol/ Ipratropium) 3 ml Q4H PRN HHN Shortness of Breath 10/01/18 18:15 10/06/18 18:14 Albuterol/ Ipratropium (Albuterol/ Ipratropium) 3 ml Q6HRT HHN 10/01/18 19:00 10/06/18 18:59 10/02/18 20:08 Aspirin (ASA) 81 mg DAILY ORAL 10/01/18 09:00 10/31/18 08:59 10/02/18 08:30 Benazepril HCl (Lotensin) 20 mg BID ORAL 10/01/18 18:00 10/31/18 17:59 10/02/18 17:55 Ferrous Sulfate (Feosol) 325 mg DAILY ORAL 10/01/18 09:00 10/31/18 08:59 10/02/18 08:30 Furosemide (Lasix) 20 mg BID ORAL 09/30/18 18:00 10/30/18 17:59 10/02/18 17:55 Gadobutrol (Gadavist) 7.5 mmol NOW PRN IV Radiology Procedure 10/01/18 21:15 10/05/18 21:03 Gadobutrol (Gadavist) 7.5 mmol NOW PRN IV Radiology Procedure 10/01/18 21:15 10/05/18 21:03 Heparin Sodium (Porcine) (Heparin 5000 units/ml) 5,000 units EVERY 12 HOURS SUBQ 10/01/18 21:00 10/31/18 20:59 Montelukast Sodium (Singulair) 10 mg QHS ORAL 09/30/18 21:00 10/30/18 20:59 10/02/18 20:34 Pantoprazole (Protonix) 40 mg DAILY ORAL 10/02/18 09:00 11/01/18 08:59 10/02/18 08:30 Salmeterol Xinafoate/ Fluticasone (Advair 250/50 Diskus) 1 puffs EVERY 12 HOURS INH 10/01/18 09:00 10/31/18 08:59 10/02/18 21:13 Progress Note date and time: 10/02/182130 Assessment/Plan Assessment/Plan ASSESSMENT: The patient is a 63-year-old male, lifelong nonsmoker with a history of congestive heart failure with diastolic dysfunction, pulmonary hypertension, obesity, likely obstructive sleep apnea, known pulmonary nodules, anemia and asthma, presenting with recurrent NELLIE PROBLEM LIST: 1. Asthma without evidence of exacerbation. 2. CHF with diastolic dysfunction, 3. Bilateral lower extremity edema, likely secondary to above. 4. Known scattered bilateral subcentimeter nodules, stable on follow-up - per patient being followed up by PULMONARY @ [facility] 5. Anemia. 6. Hypertension. 7. Obesity. 8. Likely THERON. TREATMENT PLAN: 1. Optimize pulmonary hygiene/mobilize as tolerated. 2. P.r.n. O2 to keep saturations greater than 90%. 3. RTC and PRN HHN's 4. Advair 250/50 5. Observe off antibiotics and steroids 6. Monitor volumes, Lasix 20 PO BID per cards 7. Incentive spirometry 8. Continue to follow up with [facility] Pulmonary Clinic per the patient. 9. F/U CT AP 10. DVT prophylaxis, heparin subcutaneous. 11. Weight-loss diet and exercise discussed again. Subjective Allergies: Coded Allergies: PENICILLINS (Verified Allergy, Unknown, 08/31/17) TRAMADOL (Verified Allergy, Unknown, 08/31/17) Subjective AFVSS on RA No cough less SOB less edema no NVDC Cardiology eval noted - CT AP pending, recent neg cardiac w/u @ [facility] Objective Vital Signs Noted General Appearance: WD/WN, no acute distress HEENT: normocephalic, atraumatic, anicteric, mucous membranes moist Respiratory/Chest: chest wall non-tender, lungs clear, normal breath sounds, no respiratory distress, no accessory muscle use Cardiovascular: normal peripheral pulses, normal rate, regular rhythm Abdomen: normal bowel sounds, soft, non tender, no organomegaly, non distended , no mass Extremities: no cyanosis, no clubbing, other - 2+ NELLIE Microbiology Date/Time Source Procedure Growth Status 09/30/18 12:10 Nasal Nares MRSA Culture - Final NO METHICILLIN RESISTANT STAPH AUREUS... Complete 09/30/18 12:10 Rectum VRE Culture - Final NO VANCOMYCIN RESISTANT ENTEROCOCCUS ... Complete 09/30/18 12:10 Rectum - Final NO CARBAPENEM-RESISTANT ENTEROBACTERI... Complete Current Medications Medications (Trade) Dose Ordered Sig/Virgen Route PRN Reason Start Time Stop Time Status Last Admin Dose Admin Acetaminophen/ Hydrocodone Bitart ([place] 10/325) 1 tab Q4H PRN ORAL For Pain 09/30/18 15:45 10/07/18 15:44 10/02/18 20:34 Albuterol/ Ipratropium (Albuterol/ Ipratropium) 3 ml Q4H PRN HHN Shortness of Breath 10/01/18 18:15 10/06/18 18:14 Albuterol/ Ipratropium (Albuterol/ Ipratropium) 3 ml Q6HRT HHN 10/01/18 19:00 10/06/18 18:59 10/02/18 20:08 Aspirin (ASA) 81 mg DAILY ORAL 10/01/18 09:00 10/31/18 08:59 10/02/18 08:30 Benazepril HCl (Lotensin) 20 mg BID ORAL 10/01/18 18:00 10/31/18 17:59 10/02/18 17:55 Ferrous Sulfate (Feosol) 325 mg DAILY ORAL 10/01/18 09:00 10/31/18 08:59 10/02/18 08:30 Furosemide (Lasix) 20 mg BID ORAL 09/30/18 18:00 10/30/18 17:59 10/02/18 17:55 Gadobutrol (Gadavist) 7.5 mmol NOW PRN IV Radiology Procedure 10/01/18 21:15 10/05/18 21:03 Gadobutrol (Gadavist) 7.5 mmol NOW PRN IV Radiology Procedure 10/01/18 21:15 10/05/18 21:03 Heparin Sodium (Porcine) (Heparin 5000 units/ml) 5,000 units EVERY 12 HOURS SUBQ 10/01/18 21:00 10/31/18 20:59 Montelukast Sodium (Singulair) 10 mg QHS ORAL 09/30/18 21:00 10/30/18 20:59 10/02/18 20:34 Pantoprazole (Protonix) 40 mg DAILY ORAL 10/02/18 09:00 11/01/18 08:59 10/02/18 08:30 Salmeterol Xinafoate/ Fluticasone (Advair 250/50 Diskus) 1 puffs EVERY 12 HOURS INH 10/01/18 09:00 10/31/18 08:59 10/02/18 21:13 Subjective ROS Limited/Unobtainable: No Allergies: Coded Allergies: PENICILLINS (Verified Allergy, Unknown, 08/31/17) TRAMADOL (Verified Allergy, Unknown, 08/31/17) Objective Last 24 Hour Vital Signs Date Time Temp Pulse Resp B/P (MAP) Pulse Ox O2 Delivery O2 Flow Rate FiO2 10/03/18 20:04 72 18 98 Room Air 21 10/03/18 18:47 98.3 10/03/18 16:51 130/57 10/03/18 16:00 69 10/03/18 13:45 79 18 98 Room Air 21 10/03/18 13:38 74 12 95 Room Air 21 10/03/18 12:00 67 10/03/18 09:00 Room Air Room Air 10/03/18 08:43 130/57 10/03/18 08:31 74 16 97 Room Air 21 10/03/18 08:31 77 16 97 Room Air 21 10/03/18 08:00 66 10/03/18 08:00 97.7 82 18 130/57 (81) 98 10/03/18 07:45 80 16 99 Room Air 21 10/03/18 07:40 79 16 96 Room Air 21 10/03/18 04:00 64 10/03/18 04:00 98.1 60 18 133/70 (91) 99 10/03/18 01:41 78 18 99 Room Air 21 10/03/18 01:31 77 18 98 Room Air 21 10/03/18 00:00 98.0 62 18 117/59 (78) 99 10/03/18 00:00 62 10/02/18 21:15 78 18 97 Room Air 21 10/02/18 21:13 78 18 97 Room Air 21 10/02/18 21:00 Room Air Room Air 10/02/18 20:18 81 18 99 Room Air 21 Intake and Output 10/02/18 10/03/18 19:00 07:00 Intake Total 600 ml Output Total 1200 ml 2100 ml Balance -600 ml -2100 ml Intake Oral 600 ml Output Urine Total 1200 ml 2100 ml # Voids 2 Current Medications Medications (Trade) Dose Ordered Sig/Virgen Route PRN Reason Start Time Stop Time Status Last Admin Dose Admin Acetaminophen/ Hydrocodone Bitart ([place] 10/325) 1 tab Q4H PRN ORAL For Pain 09/30/18 15:45 10/07/18 15:44 10/03/18 16:50 Albuterol/ Ipratropium (Albuterol/ Ipratropium) 3 ml Q4H PRN HHN Shortness of Breath 10/01/18 18:15 10/06/18 18:14 Albuterol/ Ipratropium (Albuterol/ Ipratropium) 3 ml Q6HRT HHN 10/01/18 19:00 10/06/18 18:59 10/03/18 20:04 Aspirin (ASA) 81 mg DAILY ORAL 10/01/18 09:00 10/31/18 08:59 10/03/18 08:42 Benazepril HCl (Lotensin) 20 mg BID ORAL 10/01/18 18:00 10/31/18 17:59 10/03/18 16:51 Ferrous Sulfate (Feosol) 325 mg DAILY ORAL 10/01/18 09:00 10/31/18 08:59 10/03/18 08:44 Furosemide (Lasix) 20 mg BID ORAL 09/30/18 18:00 10/30/18 17:59 10/03/18 16:51 Gadobutrol (Gadavist) 7.5 mmol NOW PRN IV Radiology Procedure 10/01/18 21:15 10/05/18 21:03 Gadobutrol (Gadavist) 7.5 mmol NOW PRN IV Radiology Procedure 10/01/18 21:15 10/05/18 21:03 Heparin Sodium (Porcine) (Heparin 5000 units/ml) 5,000 units EVERY 12 HOURS SUBQ 10/01/18 21:00 10/31/18 20:59 Montelukast Sodium (Singulair) 10 mg QHS ORAL 09/30/18 21:00 10/30/18 20:59 10/02/18 20:34 Pantoprazole (Protonix) 40 mg DAILY ORAL 10/02/18 09:00 11/01/18 08:59 10/03/18 08:43 Salmeterol Xinafoate/ Fluticasone (Advair 250/50 Diskus) 1 puffs EVERY 12 HOURS INH 10/01/18 09:00 10/31/18 08:59 10/03/18 08:31 Anival Hsieh MD Oct 03, 2018 20:11
[2018-10-03] MEDS: Montelukast 10mg tablet ORAL SCH (20:53)
--- NOTE | 2018-10-04 00:28 | NUR ---
NURSE NOTES: Pt received awake, resting in bed. Pt free of pain, alert and oriented x4. Will continue to monitor patient. Addendum: 10/04/18 at 0032 by ALEXA AGUILA RN Received report at 1940.
[2018-10-04] MEDS: HYDROcodone/Acetamin 10/325 tab ORAL PRN ×6 (01:11→21:47)
[2018-10-04] MEDS: Albuterol/Ipratropium 3ml neb HHN SCH ×5 (02:02→19:47)
[2018-10-04 04:00] VITALS: BP 108/76
[2018-10-04 08:00] VITALS: BP 134/76
--- NOTE | 2018-10-04 08:01 | NUR ---
HAND-OFF: Report given to LAKEISHA Alfaro.
--- NOTE | 2018-10-04 08:05 | NUR ---
NURSE NOTES: Pt asleep in bed, breathing easily on room air, awoke to soft voice, denies SOB denies pain at this time. No IV access, pt refusing, MD aware. Vital signs stable with SR @ 65 on monitor. Bed left in low position, side rails up x 2 and call light left near pt's hand.
--- NOTE | 2018-10-04 08:06 | NUR ---
NURSE NOTES: Received report from Tam SUAZO. Pt awake and rested. Pt denies SOB. Bed in lowest position, side rails up x2, call light within reach. Will continue with plan of care.
[2018-10-04] MEDS: Heparin 5000 units/ml inj SUBQ SCH ×2 (09:00→21:00)
[2018-10-04] MEDS: Benazepril 10mg tab ORAL SCH ×2 (09:10→17:37)
[2018-10-04] MEDS: Aspirin Baby 81mg ORAL SCH (09:10)
--- NOTE | 2018-10-04 10:40 | NUR ---
CASE MANAGEMENT: REVIEW 10/04/2018 SI: CHF EXACERBATION. ASTHMA. T 96.8 HR 65 RR 20 B/P 134/76 SATS 97% ON RA NO LABS TODAY IS: LASIX PO BID LOTENSIN PO BID ASA PO QD ALBUTEROL Q6H HHN SINGULAIR PO QHS TELE STATUS DCP: PATIENT TO BE DISCHARGED TO BE DISCHARGED TO HOME ONCE MEDICALLY CLEARED.
[2018-10-04] MEDS: Advair 250/50 Inhaler - 14 dose INH SCH ×2 (11:27→19:55)
[2018-10-04 12:00] VITALS: BP 132/56
--- NOTE | 2018-10-04 14:02 | Pulmonology Progress Note ---
Assessment/Plan Assessment/Plan Pulmonary Progress Note Assessment/Plan ASSESSMENT: The patient is a 63-year-old male, lifelong nonsmoker with a history of congestive heart failure with diastolic dysfunction, pulmonary hypertension, obesity, likely obstructive sleep apnea, known pulmonary nodules, anemia and asthma, presenting with recurrent NELLIE PROBLEM LIST: 1. Asthma without evidence of exacerbation. 2. CHF with diastolic dysfunction, 3. Bilateral lower extremity edema, likely secondary to above. 4. Known scattered bilateral subcentimeter nodules, stable on follow-up - per patient being followed up by PULMONARY @ [facility] 5. Anemia. 6. Hypertension. 7. Obesity. 8. Likely THERON. TREATMENT PLAN: 1. Optimize pulmonary hygiene/mobilize as tolerated. 2. P.r.n. O2 to keep saturations greater than 90%. 3. RTC and PRN HHN's 4. Advair 250/50 5. Observe off antibiotics and steroids 6. Monitor volumes, Lasix 20 PO BID per cards 7. Incentive spirometry 8. Continue to follow up with [facility] Pulmonary Clinic per the patient. 9. F/U CT AP 10. DVT prophylaxis, heparin subcutaneous. 11. Weight-loss diet and exercise discussed again. Subjective Allergies: Coded Allergies: PENICILLINS (Verified Allergy, Unknown, 08/31/17) TRAMADOL (Verified Allergy, Unknown, 08/31/17) Subjective AFVSS on RA No cough less SOB less edema no NVDC Cardiology eval noted - CT AP pending, recent neg cardiac w/u @ [facility] Objective Last 24 Hour Vital Signs Date Time Temp Pulse Resp B/P (MAP) Pulse Ox O2 Delivery O2 Flow Rate FiO2 10/02/18 21:15 78 18 97 Room Air 21 10/02/18 21:13 78 18 97 Room Air 21 10/02/18 20:18 81 18 99 Room Air 21 10/02/18 20:08 76 18 97 Room Air 21 10/02/18 17:55 126/64 10/02/18 16:59 98.3 10/02/18 16:00 97.7 69 16 126/64 (84) 98 10/02/18 15:34 76 10/02/18 15:09 75 18 99 Room Air 21 10/02/18 14:56 72 18 98 Room Air 21 10/02/18 13:02 64 10/02/18 12:00 98.3 82 16 122/74 (90) 98 10/02/18 10:21 Room Air 21 10/02/18 10:20 Room Air 21 10/02/18 09:00 Room Air Room Air 10/02/18 08:31 128/73 10/02/18 08:00 98.1 67 16 116/55 (75) 96 10/02/18 07:45 68 10/02/18 07:32 70 18 99 Room Air 21 10/02/18 07:22 65 18 99 Room Air 21 10/02/18 07:19 65 18 Room Air 21 10/02/18 04:00 70 10/02/18 04:00 98.3 65 19 128/73 (91) 96 10/02/18 01:38 75 18 99 Room Air 21 10/02/18 01:26 71 18 99 Room Air 21 10/02/18 00:00 73 10/02/18 00:00 98.8 69 19 109/80 (90) 93 10/01/18 22:47 73 18 98 Room Air 21 10/01/18 22:47 73 18 98 Room Air 21 Intake and Output 10/01/18 10/02/18 19:00 07:00 Intake Total 480 ml 2300 ml Output Total 1700 ml Balance -1220 ml 2300 ml Intake Oral 480 ml 2300 ml Output Urine Total 1700 ml General Appearance: WD/WN, no acute distress HEENT: normocephalic, atraumatic, anicteric, mucous membranes moist Respiratory/Chest: chest wall non-tender, lungs clear, normal breath sounds, no respiratory distress, no accessory muscle use Cardiovascular: normal peripheral pulses, normal rate, regular rhythm Abdomen: normal bowel sounds, soft, non tender, no organomegaly, non distended , no mass Extremities: no cyanosis, no clubbing, other - 2+ NELLIE Microbiology Date/Time Source Procedure Growth Status 09/30/18 12:10 Nasal Nares MRSA Culture - Final NO METHICILLIN RESISTANT STAPH AUREUS... Complete 09/30/18 12:10 Rectum VRE Culture - Final NO VANCOMYCIN RESISTANT ENTEROCOCCUS ... Complete 09/30/18 12:10 Rectum - Final NO CARBAPENEM-RESISTANT ENTEROBACTERI... Complete Current Medications Medications (Trade) Dose Ordered Sig/Virgen Route PRN Reason Start Time Stop Time Status Last Admin Dose Admin Acetaminophen/ Hydrocodone Bitart (Mercedes 10/325) 1 tab Q4H PRN ORAL For Pain 09/30/18 15:45 10/07/18 15:44 10/02/18 20:34 Albuterol/ Ipratropium (Albuterol/ Ipratropium) 3 ml Q4H PRN HHN Shortness of Breath 10/01/18 18:15 10/06/18 18:14 Albuterol/ Ipratropium (Albuterol/ Ipratropium) 3 ml Q6HRT HHN 10/01/18 19:00 10/06/18 18:59 10/02/18 20:08 Aspirin (ASA) 81 mg DAILY ORAL 10/01/18 09:00 10/31/18 08:59 10/02/18 08:30 Benazepril HCl (Lotensin) 20 mg BID ORAL 10/01/18 18:00 10/31/18 17:59 10/02/18 17:55 Ferrous Sulfate (Feosol) 325 mg DAILY ORAL 10/01/18 09:00 10/31/18 08:59 10/02/18 08:30 Furosemide (Lasix) 20 mg BID ORAL 09/30/18 18:00 10/30/18 17:59 10/02/18 17:55 Gadobutrol (Gadavist) 7.5 mmol NOW PRN IV Radiology Procedure 10/01/18 21:15 10/05/18 21:03 Gadobutrol (Gadavist) 7.5 mmol NOW PRN IV Radiology Procedure 10/01/18 21:15 10/05/18 21:03 Heparin Sodium (Porcine) (Heparin 5000 units/ml) 5,000 units EVERY 12 HOURS SUBQ 10/01/18 21:00 10/31/18 20:59 Montelukast Sodium (Singulair) 10 mg QHS ORAL 09/30/18 21:00 10/30/18 20:59 10/02/18 20:34 Pantoprazole (Protonix) 40 mg DAILY ORAL 10/02/18 09:00 11/01/18 08:59 10/02/18 08:30 Salmeterol Xinafoate/ Fluticasone (Advair 250/50 Diskus) 1 puffs EVERY 12 HOURS INH 10/01/18 09:00 10/31/18 08:59 10/02/18 21:13 Progress Note date and time: 10/02/182130 Assessment/Plan Assessment/Plan ASSESSMENT: The patient is a 63-year-old male, lifelong nonsmoker with a history of congestive heart failure with diastolic dysfunction, pulmonary hypertension, obesity, likely obstructive sleep apnea, known pulmonary nodules, anemia and asthma, presenting with recurrent NELLIE PROBLEM LIST: 1. Asthma without evidence of exacerbation. 2. CHF with diastolic dysfunction, 3. Bilateral lower extremity edema, likely secondary to above. 4. Known scattered bilateral subcentimeter nodules, stable on follow-up - per patient being followed up by PULMONARY @ [facility] 5. Anemia. 6. Hypertension. 7. Obesity. 8. Likely THERON. TREATMENT PLAN: 1. Optimize pulmonary hygiene/mobilize as tolerated. 2. P.r.n. O2 to keep saturations greater than 90%. 3. RTC and PRN HHN's 4. Advair 250/50 5. Observe off antibiotics and steroids 6. Monitor volumes, Lasix 20 PO BID per cards 7. Incentive spirometry 8. Continue to follow up with [facility] Pulmonary Clinic per the patient. 9. F/U CT AP 10. DVT prophylaxis, heparin subcutaneous. 11. Weight-loss diet and exercise discussed again. Subjective Allergies: Coded Allergies: PENICILLINS (Verified Allergy, Unknown, 08/31/17) TRAMADOL (Verified Allergy, Unknown, 08/31/17) Subjective AFVSS on RA No cough less SOB less edema no NVDC Cardiology eval noted - CT AP pending, recent neg cardiac w/u @ [facility] Objective Vital Signs Noted General Appearance: WD/WN, no acute distress HEENT: normocephalic, atraumatic, anicteric, mucous membranes moist Respiratory/Chest: chest wall non-tender, lungs clear, normal breath sounds, no respiratory distress, no accessory muscle use Cardiovascular: normal peripheral pulses, normal rate, regular rhythm Abdomen: normal bowel sounds, soft, non tender, no organomegaly, non distended , no mass Extremities: no cyanosis, no clubbing, other - 2+ NELLIE Microbiology Date/Time Source Procedure Growth Status 09/30/18 12:10 Nasal Nares MRSA Culture - Final NO METHICILLIN RESISTANT STAPH AUREUS... Complete 09/30/18 12:10 Rectum VRE Culture - Final NO VANCOMYCIN RESISTANT ENTEROCOCCUS ... Complete 09/30/18 12:10 Rectum - Final NO CARBAPENEM-RESISTANT ENTEROBACTERI... Complete Current Medications Medications (Trade) Dose Ordered Sig/Virgen Route PRN Reason Start Time Stop Time Status Last Admin Dose Admin Acetaminophen/ Hydrocodone Bitart (Mercedes 10/325) 1 tab Q4H PRN ORAL For Pain 09/30/18 15:45 10/07/18 15:44 10/02/18 20:34 Albuterol/ Ipratropium (Albuterol/ Ipratropium) 3 ml Q4H PRN HHN Shortness of Breath 10/01/18 18:15 10/06/18 18:14 Albuterol/ Ipratropium (Albuterol/ Ipratropium) 3 ml Q6HRT HHN 10/01/18 19:00 10/06/18 18:59 10/02/18 20:08 Aspirin (ASA) 81 mg DAILY ORAL 10/01/18 09:00 10/31/18 08:59 10/02/18 08:30 Benazepril HCl (Lotensin) 20 mg BID ORAL 10/01/18 18:00 10/31/18 17:59 10/02/18 17:55 Ferrous Sulfate (Feosol) 325 mg DAILY ORAL 10/01/18 09:00 10/31/18 08:59 10/02/18 08:30 Furosemide (Lasix) 20 mg BID ORAL 09/30/18 18:00 10/30/18 17:59 10/02/18 17:55 Gadobutrol (Gadavist) 7.5 mmol NOW PRN IV Radiology Procedure 10/01/18 21:15 10/05/18 21:03 Gadobutrol (Gadavist) 7.5 mmol NOW PRN IV Radiology Procedure 10/01/18 21:15 10/05/18 21:03 Heparin Sodium (Porcine) (Heparin 5000 units/ml) 5,000 units EVERY 12 HOURS SUBQ 10/01/18 21:00 10/31/18 20:59 Montelukast Sodium (Singulair) 10 mg QHS ORAL 09/30/18 21:00 10/30/18 20:59 10/02/18 20:34 Pantoprazole (Protonix) 40 mg DAILY ORAL 10/02/18 09:00 11/01/18 08:59 10/02/18 08:30 Salmeterol Xinafoate/ Fluticasone (Advair 250/50 Diskus) 1 puffs EVERY 12 HOURS INH 10/01/18 09:00 10/31/18 08:59 10/02/18 21:13 Subjective ROS Limited/Unobtainable: No Allergies: Coded Allergies: PENICILLINS (Verified Allergy, Unknown, 08/31/17) TRAMADOL (Verified Allergy, Unknown, 08/31/17) Objective Last 24 Hour Vital Signs Date Time Temp Pulse Resp B/P (MAP) Pulse Ox O2 Delivery O2 Flow Rate FiO2 10/04/18 13:42 74 18 100 Room Air 21 10/04/18 13:33 71 18 99 Room Air 21 10/04/18 09:10 134/76 10/04/18 09:00 Room Air Room Air 10/04/18 08:41 87 18 98 Room Air 21 10/04/18 08:00 65 10/04/18 08:00 96.8 65 20 134/76 (95) 97 10/04/18 07:42 72 18 100 Nasal Cannula 2.0 28 10/04/18 07:41 84 18 99 Room Air 21 10/04/18 07:34 70 18 98 Room Air 21 10/04/18 04:00 59 10/04/18 04:00 97.8 59 18 108/76 (87) 98 10/04/18 02:12 62 18 100 Room Air 21 10/04/18 02:02 68 18 98 Room Air 21 10/04/18 00:00 60 10/03/18 21:00 Room Air Room Air 10/03/18 20:57 86 18 98 Room Air 21 10/03/18 20:57 86 18 98 Room Air 21 10/03/18 20:14 89 18 100 Room Air 21 10/03/18 20:04 72 18 98 Room Air 21 10/03/18 20:00 71 10/03/18 20:00 98.0 71 20 121/67 (85) 99 10/03/18 18:47 98.3 10/03/18 16:51 130/57 10/03/18 16:00 69 Intake and Output 10/03/18 10/04/18 18:59 06:59 Intake Total 360 ml Output Total 3000 ml Balance 360 ml -3000 ml Intake Oral 360 ml Output Urine Total 3000 ml # Voids 3 Current Medications Medications (Trade) Dose Ordered Sig/Virgen Route PRN Reason Start Time Stop Time Status Last Admin Dose Admin Acetaminophen/ Hydrocodone Bitart (Mercedes 10/325) 1 tab Q4H PRN ORAL For Pain 09/30/18 15:45 10/07/18 15:44 10/04/18 13:40 Albuterol/ Ipratropium (Albuterol/ Ipratropium) 3 ml Q4H PRN HHN Shortness of Breath 10/01/18 18:15 10/06/18 18:14 Albuterol/ Ipratropium (Albuterol/ Ipratropium) 3 ml Q6HRT HHN 10/01/18 19:00 10/06/18 18:59 10/04/18 13:32 Aspirin (ASA) 81 mg DAILY ORAL 10/01/18 09:00 10/31/18 08:59 10/04/18 09:10 Benazepril HCl (Lotensin) 20 mg BID ORAL 10/01/18 18:00 10/31/18 17:59 10/04/18 09:10 Ferrous Sulfate (Feosol) 325 mg DAILY ORAL 10/01/18 09:00 10/31/18 08:59 10/04/18 09:10 Furosemide (Lasix) 20 mg BID ORAL 09/30/18 18:00 10/30/18 17:59 10/04/18 09:09 Gadobutrol (Gadavist) 7.5 mmol NOW PRN IV Radiology Procedure 10/01/18 21:15 10/05/18 21:03 Gadobutrol (Gadavist) 7.5 mmol NOW PRN IV Radiology Procedure 10/01/18 21:15 10/05/18 21:03 Heparin Sodium (Porcine) (Heparin 5000 units/ml) 5,000 units EVERY 12 HOURS SUBQ 10/01/18 21:00 10/31/18 20:59 Montelukast Sodium (Singulair) 10 mg QHS ORAL 09/30/18 21:00 10/30/18 20:59 10/03/18 20:53 Pantoprazole (Protonix) 40 mg DAILY ORAL 10/02/18 09:00 11/01/18 08:59 10/04/18 09:10 Salmeterol Xinafoate/ Fluticasone (Advair 250/50 Diskus) 1 puffs EVERY 12 HOURS INH 10/01/18 09:00 10/31/18 08:59 10/04/18 11:27 Anival Hsieh MD Oct 04, 2018 14:02
[2018-10-04 16:00] VITALS: BP 131/64
--- NOTE | 2018-10-04 18:38 | General Progress Note ---
Assessment/Plan Problem List: (1) CHF (congestive heart failure) ICD Codes: I50.9 - Heart failure, unspecified SNOMED: 68634274 (2) MDD (major depressive disorder) ICD Codes: F32.9 - Major depressive disorder, single episode, unspecified SNOMED: 034349965 (3) Edema ICD Codes: R60.9 - Edema, unspecified SNOMED: 616000063, 692959756 (4) Anemia, iron deficiency ICD Codes: D50.9 - Iron deficiency anemia, unspecified SNOMED: 80587868 (5) Pain ICD Codes: R52 - Pain, unspecified SNOMED: 87493475 (6) CHF exacerbation ICD Codes: I50.9 - Heart failure, unspecified SNOMED: 77034331 (7) Edema ICD Codes: R60.9 - Edema, unspecified SNOMED: 334588836, 448635270 Status: progressing Assessment/Plan chf exacerbation r/o non compliance w meds and diet chronic pain anemia moniter lytes severe leg edema Subjective ROS Limited/Unobtainable: Yes Constitutional: Reports: no symptoms Allergies: Coded Allergies: PENICILLINS (Verified Allergy, Unknown, 08/31/17) TRAMADOL (Verified Allergy, Unknown, 08/31/17) Subjective chronic pain Objective Last 24 Hour Vital Signs Date Time Temp Pulse Resp B/P (MAP) Pulse Ox O2 Delivery O2 Flow Rate FiO2 10/04/18 17:37 131/64 10/04/18 16:00 99.0 74 20 131/64 (86) 100 10/04/18 16:00 74 10/04/18 13:42 74 18 100 Room Air 21 10/04/18 13:33 71 18 99 Room Air 21 10/04/18 12:00 77 10/04/18 12:00 97.1 77 20 132/56 (81) 98 10/04/18 09:10 134/76 10/04/18 09:00 Room Air Room Air 10/04/18 08:41 87 18 98 Room Air 21 10/04/18 08:00 65 10/04/18 08:00 96.8 65 20 134/76 (95) 97 10/04/18 07:42 72 18 100 Nasal Cannula 2.0 28 10/04/18 07:41 84 18 99 Room Air 21 10/04/18 07:34 70 18 98 Room Air 21 10/04/18 04:00 59 10/04/18 04:00 97.8 59 18 108/76 (87) 98 10/04/18 02:12 62 18 100 Room Air 21 10/04/18 02:02 68 18 98 Room Air 21 10/04/18 00:00 60 10/03/18 21:00 Room Air Room Air 10/03/18 20:57 86 18 98 Room Air 21 10/03/18 20:57 86 18 98 Room Air 21 10/03/18 20:14 89 18 100 Room Air 21 10/03/18 20:04 72 18 98 Room Air 21 10/03/18 20:00 71 10/03/18 20:00 98.0 71 20 121/67 (85) 99 10/03/18 18:47 98.3 Intake and Output 10/03/18 10/04/18 19:00 07:00 Intake Total 360 ml Output Total 3000 ml Balance 360 ml -3000 ml Intake Oral 360 ml Output Urine Total 3000 ml # Voids 3 Height (Feet): 5 Height (Inches): 11.00 Weight (Pounds): 338 Neck: supple Cardiovascular: normal rate Brittney Shepard MD Oct 04, 2018 18:38
[2018-10-04] MEDS: Montelukast 10mg tablet ORAL SCH (21:46)
--- NOTE | 2018-10-04 21:46 | Cardiology Progress Note ---
Assessment/Plan Assessment/Plan 1. Dyspnea in this patient is due to acute exacerbation of asthma. 2D echocardiography in 2018 shows normal right atrial and right ventricular cavity , hyperdynamic LV function with LVEF of 75 to 80%. Transmitral flow velocity also shows normal intracardiac filling pressure and normal left atrial pressure. Recent cardiac MRI at [facility] was normal, nuclear stress test was nonischemic. 2. Bilateral lower extremity edema, unknown etiology, CT scan of the abdomen and pelvis ordered but the patient is not cooperative. 3. Mild pulmonary HTN with RVSP at 41 mmHg by echo, normal V/Q scan. Subjective Subjective Sinus rhythm at rate of 66. Declined CT of abdomen and pelvis. Objective Last 24 Hour Vital Signs Date Time Temp Pulse Resp B/P (MAP) Pulse Ox O2 Delivery O2 Flow Rate FiO2 10/04/18 19:57 66 20 99 Room Air 21 10/04/18 19:56 66 20 99 Room Air 21 10/04/18 19:55 66 20 99 Room Air 21 10/04/18 19:45 80 20 97 Room Air 21 10/04/18 17:37 131/64 10/04/18 16:00 99.0 74 20 131/64 (86) 100 10/04/18 16:00 74 10/04/18 13:42 74 18 100 Room Air 21 10/04/18 13:33 71 18 99 Room Air 21 10/04/18 12:00 77 10/04/18 12:00 97.1 77 20 132/56 (81) 98 10/04/18 09:10 134/76 10/04/18 09:00 Room Air Room Air 10/04/18 08:41 87 18 98 Room Air 10/04/18 08:00 65 10/04/18 08:00 96.8 65 20 134/76 (95) 97 10/04/18 07:42 72 18 100 Nasal Cannula 2.0 28 10/04/18 07:41 84 18 99 Room Air 21 10/04/18 07:34 70 18 98 Room Air 21 10/04/18 04:00 59 10/04/18 04:00 97.8 59 18 108/76 (87) 98 10/04/18 02:12 62 18 100 Room Air 21 10/04/18 02:02 68 18 98 Room Air 21 10/04/18 00:00 60 Intake and Output 10/03/18 10/04/18 19:00 07:00 Intake Total 360 ml Output Total 3000 ml Balance 360 ml -3000 ml Intake Oral 360 ml Output Urine Total 3000 ml # Voids 3 2D Echo: Normal LV systolic and diastolic function, LVEF >75%, PAP 41 mmHg Objective HEENT: Atraumatic and normocephalic. Anicteric. Pupils are equal, round, and reactive to light and accommodation. Extraocular muscles intact. NECK: JVP is less than 5 cm. No carotid bruits. Carotid upstrokes 2+ bilaterally. CARDIOVASCULAR: Normal S1, S2. Distant heart sounds. No murmurs, gallops, or rubs. PMI is at fourth intercostal space in the midclavicular line. LUNGS: There is bilateral expiratory rhonchi, prolonged expiratory phase of breathing. No crackles. ABDOMEN: Soft, nontender, and nondistended. No hepatosplenomegaly. Positive bowel sounds. EXTREMITIES: There is 2+ bilateral pitting edema. Prosper Pittman MD Oct 04, 2018 21:46
[2018-10-05] VITALS: BP 125/59
[2018-10-05] MEDS: Albuterol/Ipratropium 3ml neb HHN SCH ×4 (01:15→19:03)
[2018-10-05] MEDS: HYDROcodone/Acetamin 10/325 tab ORAL PRN ×5 (02:21→20:11)
[2018-10-05 04:00] VITALS: BP 146/67
--- NOTE | 2018-10-05 07:29 | NUR ---
NURSE NOTES: Report given to LAKEISHA Alfaro. Pt is alert and oriented x4. Pt states free of SOB. Bed in lowest position, side rails up x2 and call light within reach.
[2018-10-05 08:00] VITALS: BP 132/56
--- NOTE | 2018-10-05 08:00 | NUR ---
ROMAIN NOTES: Pt awake/alert in bed, breathing easily on room air, denies SOB and denies pain at this time. No IV access, pt refusing, MD aware. Vital signs stable with SR @ 73 on monitor. Bed left in low position, side rails up x 2 and call light left near pt's hand.
[2018-10-05] MEDS: Advair 250/50 Inhaler - 14 dose INH SCH ×2 (08:51→23:35)
[2018-10-05] MEDS: Heparin 5000 units/ml inj SUBQ SCH ×2 (09:00→21:45)
[2018-10-05] MEDS: Aspirin Baby 81mg ORAL SCH (09:01)
[2018-10-05] MEDS: Benazepril 10mg tab ORAL SCH ×2 (09:01→17:40)
[2018-10-05 12:00] VITALS: BP 116/49
--- NOTE | 2018-10-05 13:19 | General Progress Note ---
Assessment/Plan Problem List: (1) CHF (congestive heart failure) ICD Codes: I50.9 - Heart failure, unspecified SNOMED: 34613172 (2) MDD (major depressive disorder) ICD Codes: F32.9 - Major depressive disorder, single episode, unspecified SNOMED: 129613615 (3) Edema ICD Codes: R60.9 - Edema, unspecified SNOMED: 476284506, 032090293 (4) Anemia, iron deficiency ICD Codes: D50.9 - Iron deficiency anemia, unspecified SNOMED: 48592580 (5) Pain ICD Codes: R52 - Pain, unspecified SNOMED: 41132254 (6) CHF exacerbation ICD Codes: I50.9 - Heart failure, unspecified SNOMED: 74988781 (7) Edema ICD Codes: R60.9 - Edema, unspecified SNOMED: 848357897, 460294267 Status: progressing Assessment/Plan chf exacerbation no change afebrile no cough r/o non compliance w meds and diet chronic pain anemia moniter lytes severe leg edema Subjective ROS Limited/Unobtainable: Yes Allergies: Coded Allergies: PENICILLINS (Verified Allergy, Unknown, 08/31/17) TRAMADOL (Verified Allergy, Unknown, 08/31/17) Subjective chronic pain Objective Last 24 Hour Vital Signs Date Time Temp Pulse Resp B/P (MAP) Pulse Ox O2 Delivery O2 Flow Rate FiO2 10/05/18 09:01 132/56 10/05/18 08:51 74 12 98 Room Air 10/05/18 08:51 75 12 96 Room Air 10/05/18 08:00 97.7 62 20 132/56 (81) 98 10/05/18 07:10 82 16 99 Room Air 10/05/18 07:02 79 16 97 Room Air 21 10/05/18 04:00 96.8 59 18 146/67 (93) 97 10/05/18 04:00 59 10/05/18 01:25 86 20 99 Room Air 21 10/05/18 01:15 85 20 98 Room Air 21 10/05/18 00:00 98.0 66 20 125/59 (81) 95 10/04/18 21:00 Room Air Room Air 10/04/18 20:00 66 10/04/18 19:57 66 20 99 Room Air 21 10/04/18 19:56 66 20 99 Room Air 21 10/04/18 19:55 66 20 99 Room Air 21 10/04/18 19:45 80 20 97 Room Air 21 10/04/18 17:37 131/64 10/04/18 16:00 99.0 74 20 131/64 (86) 100 10/04/18 16:00 74 10/04/18 13:42 74 18 100 Room Air 21 10/04/18 13:33 71 18 99 Room Air 21 Intake and Output 10/04/18 10/05/18 19:00 07:00 Intake Total 990 ml 600 ml Output Total 2650 ml 2200 ml Balance -1660 ml -1600 ml Intake Oral 990 ml 600 ml Output Urine Total 2650 ml 2200 ml Height (Feet): 5 Height (Inches): 11.00 Weight (Pounds): 338 Cardiovascular: normal rate Respiratory/Chest: lungs clear Abdomen: soft Brittney Shepard MD Oct 05, 2018 13:19
--- NOTE | 2018-10-05 14:57 | Pulmonology Progress Note ---
Assessment/Plan Assessment/Plan Pulmonary Progress Note Assessment/Plan ASSESSMENT: The patient is a 63-year-old male, lifelong nonsmoker with a history of congestive heart failure with diastolic dysfunction, pulmonary hypertension, obesity, likely obstructive sleep apnea, known pulmonary nodules, anemia and asthma, presenting with recurrent NELLIE. Stable over night, no new complaints. PROBLEM LIST: 1. Asthma without evidence of exacerbation. 2. CHF with diastolic dysfunction, 3. Bilateral lower extremity edema, likely secondary to above. 4. Known scattered bilateral subcentimeter nodules, stable on follow-up - per patient being followed up by PULMONARY @ [facility] 5. Anemia. 6. Hypertension. 7. Obesity. 8. Likely THERON. TREATMENT PLAN: 1. Optimize pulmonary hygiene/mobilize as tolerated. 2. P.r.n. O2 to keep saturations greater than 90%. 3. RTC and PRN HHN's 4. Advair 250/50 5. Observe off antibiotics and steroids 6. Monitor volumes, Lasix 20 PO BID per cards 7. Incentive spirometry 8. Continue to follow up with [facility] per the patient. 9. F/U CT AP 10. DVT prophylaxis, heparin subcutaneous. 11. Weight-loss diet and exercise discussed again. Subjective Allergies: Coded Allergies: PENICILLINS (Verified Allergy, Unknown, 08/31/17) TRAMADOL (Verified Allergy, Unknown, 08/31/17) Subjective AFVSS on RA No cough less SOB less edema no NVDC Cardiology eval noted - CT AP pending, recent neg cardiac w/u @ [facility] Objective Vital Signs Noted General Appearance: WD/WN, no acute distress HEENT: normocephalic, atraumatic, anicteric, mucous membranes moist Respiratory/Chest: chest wall non-tender, lungs clear, normal breath sounds, no respiratory distress, no accessory muscle use Cardiovascular: normal peripheral pulses, normal rate, regular rhythm Abdomen: normal bowel sounds, soft, non tender, no organomegaly, non distended , no mass Extremities: no cyanosis, no clubbing, other - 2+ NELLIE Microbiology Date/Time Source Procedure Growth Status 09/30/18 12:10 Nasal Nares MRSA Culture - Final NO METHICILLIN RESISTANT STAPH AUREUS... Complete 09/30/18 12:10 Rectum VRE Culture - Final NO VANCOMYCIN RESISTANT ENTEROCOCCUS ... Complete 09/30/18 12:10 Rectum - Final NO CARBAPENEM-RESISTANT ENTEROBACTERI... Complete Current Medications Medications (Trade) Dose Ordered Sig/Virgen Route PRN Reason Start Time Stop Time Status Last Admin Dose Admin Acetaminophen/ Hydrocodone Bitart ([place] 10/325) 1 tab Q4H PRN ORAL For Pain 09/30/18 15:45 10/07/18 15:44 10/02/18 20:34 Albuterol/ Ipratropium (Albuterol/ Ipratropium) 3 ml Q4H PRN HHN Shortness of Breath 10/01/18 18:15 10/06/18 18:14 Albuterol/ Ipratropium (Albuterol/ Ipratropium) 3 ml Q6HRT HHN 10/01/18 19:00 10/06/18 18:59 10/02/18 20:08 Aspirin (ASA) 81 mg DAILY ORAL 10/01/18 09:00 10/31/18 08:59 10/02/18 08:30 Benazepril HCl (Lotensin) 20 mg BID ORAL 10/01/18 18:00 10/31/18 17:59 10/02/18 17:55 Ferrous Sulfate (Feosol) 325 mg DAILY ORAL 10/01/18 09:00 10/31/18 08:59 10/02/18 08:30 Furosemide (Lasix) 20 mg BID ORAL 09/30/18 18:00 10/30/18 17:59 10/02/18 17:55 Gadobutrol (Gadavist) 7.5 mmol NOW PRN IV Radiology Procedure 10/01/18 21:15 10/05/18 21:03 Gadobutrol (Gadavist) 7.5 mmol NOW PRN IV Radiology Procedure 10/01/18 21:15 10/05/18 21:03 Heparin Sodium (Porcine) (Heparin 5000 units/ml) 5,000 units EVERY 12 HOURS SUBQ 10/01/18 21:00 10/31/18 20:59 Montelukast Sodium (Singulair) 10 mg QHS ORAL 09/30/18 21:00 10/30/18 20:59 10/02/18 20:34 Pantoprazole (Protonix) 40 mg DAILY ORAL 10/02/18 09:00 11/01/18 08:59 10/02/18 08:30 Salmeterol Xinafoate/ Fluticasone (Advair 250/50 Diskus) 1 puffs EVERY 12 HOURS INH 10/01/18 09:00 10/31/18 08:59 10/02/18 21:13 Progress Note date and time: 10/02/182130 Assessment/Plan Assessment/Plan ASSESSMENT: The patient is a 63-year-old male, lifelong nonsmoker with a history of congestive heart failure with diastolic dysfunction, pulmonary hypertension, obesity, likely obstructive sleep apnea, known pulmonary nodules, anemia and asthma, presenting with recurrent NELLIE PROBLEM LIST: 1. Asthma without evidence of exacerbation. 2. CHF with diastolic dysfunction, 3. Bilateral lower extremity edema, likely secondary to above. 4. Known scattered bilateral subcentimeter nodules, stable on follow-up - per patient being followed up by PULMONARY @ [facility] 5. Anemia. 6. Hypertension. 7. Obesity. 8. Likely THERON. TREATMENT PLAN: 1. Optimize pulmonary hygiene/mobilize as tolerated. 2. P.r.n. O2 to keep saturations greater than 90%. 3. RTC and PRN HHN's 4. Advair 250/50 5. Observe off antibiotics and steroids 6. Monitor volumes, Lasix 20 PO BID per cards 7. Incentive spirometry 8. Continue to follow up with [facility] per the patient. 9. F/U CT AP 10. DVT prophylaxis, heparin subcutaneous. 11. Weight-loss diet and exercise discussed again. Subjective Allergies: Coded Allergies: PENICILLINS (Verified Allergy, Unknown, 08/31/17) TRAMADOL (Verified Allergy, Unknown, 08/31/17) Subjective AFVSS on RA No cough less SOB less edema no NVDC Cardiology eval noted - CT AP pending, recent neg cardiac w/u @ [facility] Objective Vital Signs Noted General Appearance: WD/WN, no acute distress HEENT: normocephalic, atraumatic, anicteric, mucous membranes moist Respiratory/Chest: chest wall non-tender, lungs clear, normal breath sounds, no respiratory distress, no accessory muscle use Cardiovascular: normal peripheral pulses, normal rate, regular rhythm Abdomen: normal bowel sounds, soft, non tender, no organomegaly, non distended , no mass Extremities: no cyanosis, no clubbing, other - 2+ NELLIE Microbiology Date/Time Source Procedure Growth Status 09/30/18 12:10 Nasal Nares MRSA Culture - Final NO METHICILLIN RESISTANT STAPH AUREUS... Complete 09/30/18 12:10 Rectum VRE Culture - Final NO VANCOMYCIN RESISTANT ENTEROCOCCUS ... Complete 09/30/18 12:10 Rectum - Final NO CARBAPENEM-RESISTANT ENTEROBACTERI... Complete Current Medications Medications (Trade) Dose Ordered Sig/Virgen Route PRN Reason Start Time Stop Time Status Last Admin Dose Admin Acetaminophen/ Hydrocodone Bitart ([place] 10/325) 1 tab Q4H PRN ORAL For Pain 09/30/18 15:45 10/07/18 15:44 10/02/18 20:34 Albuterol/ Ipratropium (Albuterol/ Ipratropium) 3 ml Q4H PRN HHN Shortness of Breath 10/01/18 18:15 10/06/18 18:14 Albuterol/ Ipratropium (Albuterol/ Ipratropium) 3 ml Q6HRT HHN 10/01/18 19:00 10/06/18 18:59 10/02/18 20:08 Aspirin (ASA) 81 mg DAILY ORAL 10/01/18 09:00 10/31/18 08:59 10/02/18 08:30 Benazepril HCl (Lotensin) 20 mg BID ORAL 10/01/18 18:00 10/31/18 17:59 10/02/18 17:55 Ferrous Sulfate (Feosol) 325 mg DAILY ORAL 10/01/18 09:00 10/31/18 08:59 10/02/18 08:30 Furosemide (Lasix) 20 mg BID ORAL 09/30/18 18:00 10/30/18 17:59 10/02/18 17:55 Gadobutrol (Gadavist) 7.5 mmol NOW PRN IV Radiology Procedure 10/01/18 21:15 10/05/18 21:03 Gadobutrol (Gadavist) 7.5 mmol NOW PRN IV Radiology Procedure 10/01/18 21:15 10/05/18 21:03 Heparin Sodium (Porcine) (Heparin 5000 units/ml) 5,000 units EVERY 12 HOURS SUBQ 10/01/18 21:00 10/31/18 20:59 Montelukast Sodium (Singulair) 10 mg QHS ORAL 09/30/18 21:00 10/30/18 20:59 10/02/18 20:34 Pantoprazole (Protonix) 40 mg DAILY ORAL 10/02/18 09:00 11/01/18 08:59 10/02/18 08:30 Salmeterol Xinafoate/ Fluticasone (Advair 250/50 Diskus) 1 puffs EVERY 12 HOURS INH 10/01/18 09:00 10/31/18 08:59 10/02/18 21:13 Subjective ROS Limited/Unobtainable: No Allergies: Coded Allergies: PENICILLINS (Verified Allergy, Unknown, 08/31/17) TRAMADOL (Verified Allergy, Unknown, 08/31/17) Objective Last 24 Hour Vital Signs Date Time Temp Pulse Resp B/P (MAP) Pulse Ox O2 Delivery O2 Flow Rate FiO2 10/05/18 13:50 Room Air 21 10/05/18 13:50 Room Air 21 10/05/18 09:01 132/56 10/05/18 08:51 74 12 98 Room Air 21 10/05/18 08:51 75 12 96 Room Air 21 10/05/18 08:00 97.7 62 20 132/56 (81) 98 10/05/18 07:10 82 16 99 Room Air 21 10/05/18 07:02 79 16 97 Room Air 21 10/05/18 04:00 96.8 59 18 146/67 (93) 97 10/05/18 04:00 59 10/05/18 01:25 86 20 99 Room Air 21 10/05/18 01:15 85 20 98 Room Air 21 10/05/18 00:00 98.0 66 20 125/59 (81) 95 10/04/18 21:00 Room Air Room Air 10/04/18 20:00 66 10/04/18 19:57 66 20 99 Room Air 21 10/04/18 19:56 66 20 99 Room Air 21 10/04/18 19:55 66 20 99 Room Air 21 10/04/18 19:45 80 20 97 Room Air 21 10/04/18 17:37 131/64 10/04/18 16:00 99.0 74 20 131/64 (86) 100 10/04/18 16:00 74 Intake and Output 10/04/18 10/05/18 19:00 07:00 Intake Total 990 ml 600 ml Output Total 2650 ml 2200 ml Balance -1660 ml -1600 ml Intake Oral 990 ml 600 ml Output Urine Total 2650 ml 2200 ml Current Medications Medications (Trade) Dose Ordered Sig/Virgen Route PRN Reason Start Time Stop Time Status Last Admin Dose Admin Acetaminophen/ Hydrocodone Bitart ([place] 10/325) 1 tab Q4H PRN ORAL For Pain 09/30/18 15:45 10/07/18 15:44 10/05/18 10:18 Albuterol/ Ipratropium (Albuterol/ Ipratropium) 3 ml Q4H PRN HHN Shortness of Breath 10/01/18 18:15 10/06/18 18:14 Albuterol/ Ipratropium (Albuterol/ Ipratropium) 3 ml Q6HRT HHN 10/01/18 19:00 10/06/18 18:59 10/05/18 07:09 Aspirin (ASA) 81 mg DAILY ORAL 10/01/18 09:00 10/31/18 08:59 10/05/18 09:01 Benazepril HCl (Lotensin) 20 mg BID ORAL 10/01/18 18:00 10/31/18 17:59 10/05/18 09:01 Ferrous Sulfate (Feosol) 325 mg DAILY ORAL 10/01/18 09:00 10/31/18 08:59 10/05/18 09:01 Furosemide (Lasix) 20 mg BID ORAL 09/30/18 18:00 10/30/18 17:59 10/05/18 09:01 Gadobutrol (Gadavist) 7.5 mmol NOW PRN IV Radiology Procedure 10/01/18 21:15 10/05/18 21:03 Gadobutrol (Gadavist) 7.5 mmol NOW PRN IV Radiology Procedure 10/01/18 21:15 10/05/18 21:03 Heparin Sodium (Porcine) (Heparin 5000 units/ml) 5,000 units EVERY 12 HOURS SUBQ 10/01/18 21:00 10/31/18 20:59 Montelukast Sodium (Singulair) 10 mg QHS ORAL 09/30/18 21:00 10/30/18 20:59 10/04/18 21:46 Pantoprazole (Protonix) 40 mg DAILY ORAL 10/02/18 09:00 11/01/18 08:59 10/05/18 09:01 Salmeterol Xinafoate/ Fluticasone (Advair 250/50 Diskus) 1 puffs EVERY 12 HOURS INH 10/01/18 09:00 10/31/18 08:59 10/05/18 08:51 Anival Hsieh MD Oct 05, 2018 14:57
[2018-10-05 16:00] VITALS: BP 143/71
--- NOTE | 2018-10-05 19:00 | NUR ---
HAND-OFF: Report given to LAKEISHA Rangel.
--- NOTE | 2018-10-05 19:02 | NUR ---
NURSE NOTES: Report received from LAKEISHA Alfaro. Pt is stable and awake. Bed in lowest position, side rails up, and bed in lowest position. Will follow with plan of care.
[2018-10-05 20:00] VITALS: BP 127/72
[2018-10-05] MEDS: Montelukast 10mg tablet ORAL SCH (20:17)
--- NOTE | 2018-10-05 23:54 | Cardiology Progress Note ---
Assessment/Plan Assessment/Plan 1. Dyspnea in this patient is due to acute exacerbation of asthma. 2D echocardiography in 2018 shows normal right atrial and right ventricular cavity , hyperdynamic LV function with LVEF of 75 to 80%. Transmitral flow velocity also shows normal intracardiac filling pressure and normal left atrial pressure. Recent cardiac MRI at [facility] was normal, nuclear stress test was nonischemic. 2. Bilateral lower extremity edema, unknown etiology, CT scan of the abdomen and pelvis ordered but the patient is not cooperative and refused the test. 3. Mild pulmonary HTN with RVSP at 41 mmHg by echo, normal V/Q scan. Subjective Subjective Sinus rhythm at rate of 65.. Objective Last 24 Hour Vital Signs Date Time Temp Pulse Resp B/P (MAP) Pulse Ox O2 Delivery O2 Flow Rate FiO2 10/05/18 23:36 65 16 97 Room Air 21 10/05/18 23:35 62 26 97 Room Air 21 10/05/18 21:00 Room Air Room Air 10/05/18 20:00 75 10/05/18 20:00 97.7 82 18 127/72 (90) 96 10/05/18 19:14 62 16 99 Room Air 21 10/05/18 19:04 66 16 96 Room Air 21 10/05/18 17:40 132/56 10/05/18 16:49 97.7 10/05/18 16:00 97.1 60 20 143/71 (95) 99 10/05/18 16:00 63 10/05/18 13:50 Room Air 21 10/05/18 13:50 Room Air 21 10/05/18 12:00 63 10/05/18 12:00 98.2 69 20 116/49 (71) 96 10/05/18 09:01 132/56 10/05/18 09:00 Room Air Room Air 10/05/18 08:51 74 12 98 Room Air 21 10/05/18 08:51 75 12 96 Room Air 21 10/05/18 08:00 62 10/05/18 08:00 97.7 62 20 132/56 (81) 98 10/05/18 07:10 82 16 99 Room Air 21 10/05/18 07:02 79 16 97 Room Air 21 10/05/18 04:00 96.8 59 18 146/67 (93) 97 10/05/18 04:00 59 10/05/18 01:25 86 20 99 Room Air 21 10/05/18 01:15 85 20 98 Room Air 21 10/05/18 00:00 98.0 66 20 125/59 (81) 95 Intake and Output 10/04/18 10/05/18 19:00 07:00 Intake Total 990 ml 600 ml Output Total 2650 ml 2200 ml Balance -1660 ml -1600 ml Intake Oral 990 ml 600 ml Output Urine Total 2650 ml 2200 ml 2D Echo: Normal LV systolic and diastolic function, LVEF >75%, PAP 41 mmHg Objective HEENT: Atraumatic and normocephalic. Anicteric. Pupils are equal, round, and reactive to light and accommodation. Extraocular muscles intact. NECK: JVP is less than 5 cm. No carotid bruits. Carotid upstrokes 2+ bilaterally. CARDIOVASCULAR: Normal S1, S2. Distant heart sounds. No murmurs, gallops, or rubs. PMI is at fourth intercostal space in the midclavicular line. LUNGS: There is bilateral expiratory rhonchi, prolonged expiratory phase of breathing. No crackles. ABDOMEN: Soft, nontender, and nondistended. No hepatosplenomegaly. Positive bowel sounds. EXTREMITIES: There is 2+ bilateral pitting edema. Prosper Pittman MD Oct 05, 2018 23:54
[2018-10-06] VITALS: BP 130/59
[2018-10-06] MEDS: HYDROcodone/Acetamin 10/325 tab ORAL PRN ×6 (00:16→21:36)
[2018-10-06] MEDS: Albuterol/Ipratropium 3ml neb HHN SCH ×4 (01:00→23:42)
[2018-10-06 04:00] VITALS: BP 128/58
--- NOTE | 2018-10-06 07:10 | NUR ---
HAND-OFF: Report given to LAKEISHA Olmedo. Pt is awake and free of SOB. Bed in lowest position, side rails up, and call light within reach.
[2018-10-06] MEDS: Montelukast 10mg tablet ORAL SCH (07:54)
--- NOTE | 2018-10-06 07:54 | NUR ---
NURSE NOTES: Pt in bed in low position, call light at bedside, bed alarm on, pt has episodes of agitation, pt Ox4 at the moment is calm and cooperative, breakfast at bedside, denies pain, pt is concerned over [facility] diagnosis and is wonder what is wrong with his kidney's, IV site- pt is refusing, is a hard stick, pt makes needs known, no s/s of distress or sob noted.
[2018-10-06 08:00] VITALS: BP 126/70
[2018-10-06] MEDS: Heparin 5000 units/ml inj SUBQ SCH ×2 (09:00→20:51)
[2018-10-06] MEDS: Aspirin Baby 81mg ORAL SCH (09:13)
[2018-10-06] MEDS: Benazepril 10mg tab ORAL SCH ×2 (09:14→19:07)
[2018-10-06] MEDS: Advair 250/50 Inhaler - 14 dose INH SCH ×2 (10:45→20:34)
[2018-10-06 12:00] VITALS: BP 141/77
--- NOTE | 2018-10-06 14:52 | General Progress Note ---
Assessment/Plan Problem List: (1) CHF (congestive heart failure) ICD Codes: I50.9 - Heart failure, unspecified SNOMED: 65414141 (2) MDD (major depressive disorder) ICD Codes: F32.9 - Major depressive disorder, single episode, unspecified SNOMED: 056399226 (3) Edema ICD Codes: R60.9 - Edema, unspecified SNOMED: 937134678, 158474857 (4) Anemia, iron deficiency ICD Codes: D50.9 - Iron deficiency anemia, unspecified SNOMED: 72733843 (5) Pain ICD Codes: R52 - Pain, unspecified SNOMED: 90037302 (6) CHF exacerbation ICD Codes: I50.9 - Heart failure, unspecified SNOMED: 05867429 (7) Edema ICD Codes: R60.9 - Edema, unspecified SNOMED: 375507235, 383826003 Status: progressing Assessment/Plan chf exacerbation chrnoic pain afebrigel severe leg edema Subjective ROS Limited/Unobtainable: Yes Allergies: Coded Allergies: PENICILLINS (Verified Allergy, Unknown, 08/31/17) TRAMADOL (Verified Allergy, Unknown, 08/31/17) Subjective chronic pain Objective Last 24 Hour Vital Signs Date Time Temp Pulse Resp B/P (MAP) Pulse Ox O2 Delivery O2 Flow Rate FiO2 10/06/18 13:45 97.7 10/06/18 13:24 58 22 99 Room Air 21 10/06/18 13:19 61 20 98 Room Air 21 10/06/18 12:00 97.7 59 22 141/77 (98) 96 10/06/18 11:55 65 10/06/18 10:45 61 22 98 Room Air 21 10/06/18 10:45 62 22 98 Room Air 21 10/06/18 09:14 126/70 10/06/18 08:35 Room Air Room Air 10/06/18 08:05 62 22 99 Room Air 21 10/06/18 08:00 97.7 60 20 126/70 (88) 100 10/06/18 07:59 58 20 98 Room Air 21 10/06/18 07:50 58 10/06/18 04:00 97.4 55 18 128/58 (81) 98 10/06/18 04:00 55 10/06/18 01:10 Room Air 21 10/06/18 01:09 Room Air 21 10/06/18 00:00 97.7 59 18 130/59 (82) 98 10/06/18 00:00 59 10/05/18 23:36 65 16 97 Room Air 21 10/05/18 23:35 62 26 97 Room Air 21 10/05/18 21:00 Room Air Room Air 10/05/18 20:00 75 10/05/18 20:00 97.7 82 18 127/72 (90) 96 10/05/18 19:14 62 16 99 Room Air 21 10/05/18 19:04 66 16 96 Room Air 21 10/05/18 17:40 132/56 10/05/18 16:49 97.7 10/05/18 16:00 97.1 60 20 143/71 (95) 99 10/05/18 16:00 63 Intake and Output 10/05/18 10/06/18 19:00 07:00 Intake Total 1260 ml Output Total 1800 ml 3200 ml Balance -540 ml -3200 ml Intake Oral 1260 ml Output Urine Total 1800 ml 3200 ml # Bowel Movements 1 Height (Feet): 5 Height (Inches): 11.00 Weight (Pounds): 338 Neck: supple Cardiovascular: normal rate Respiratory/Chest: lungs clear Abdomen: soft Brittney Shepard MD Oct 06, 2018 14:52
[2018-10-06 16:00] VITALS: BP 116/53
[2018-10-06 20:00] VITALS: BP 112/51
--- NOTE | 2018-10-06 20:17 | NUR ---
HAND-OFF: Report given to Cherie salcido.
--- NOTE | 2018-10-06 20:18 | NUR ---
NURSE NOTES: Received report from LAKEISHA Olmedo. Patient awake, alert and verbally responsive. No SOB, no acute distress, denies any pain nor any discomfort at this time. Next pain med not due until 2139. No IV access, pt's been refusing, MD aware. Bed at lowest position, call light within reach. Will continue plan of care.
--- NOTE | 2018-10-06 20:41 | Pulmonology Progress Note ---
Assessment/Plan Assessment/Plan ASSESSMENT: The patient is a 63-year-old male, lifelong nonsmoker with a history of congestive heart failure with diastolic dysfunction, pulmonary hypertension, obesity, likely obstructive sleep apnea, known pulmonary nodules, anemia and asthma, presenting with recurrent NELLIE PROBLEM LIST: 1. Asthma without evidence of exacerbation. 2. CHF with diastolic dysfunction, 3. Bilateral lower extremity edema, likely secondary to above. 4. Known scattered bilateral subcentimeter nodules, stable on follow-up - per patient being followed up by PULMONARY @ [facility] 5. Anemia. 6. Hypertension. 7. Obesity. 8. Likely THERON. TREATMENT PLAN: 1. Optimize pulmonary hygiene/mobilize as tolerated. 2. P.r.n. O2 to keep saturations greater than 90%. 3. RTC and PRN HHN's 4. Advair 250/50 5. Observe off antibiotics and steroids 6. Monitor volumes, Lasix 20 PO BID per cards 7. Incentive spirometry 8. Continue to follow up with [facility] Pulmonary Clinic per the patient. 9. F/U CT AP (if patient willing) 10. Should have a RHC at some point 11. DVT prophylaxis, heparin subcutaneous. 12. Weight-loss diet and exercise discussed again. Subjective Allergies: Coded Allergies: PENICILLINS (Verified Allergy, Unknown, 08/31/17) TRAMADOL (Verified Allergy, Unknown, 08/31/17) Subjective AFVSS on RA -3.7 (-14) on PO Lasix No cough less SOB no edema no NVDC Refused CT AP ordered by cards, states he is amenable now Objective Last 24 Hour Vital Signs Date Time Temp Pulse Resp B/P (MAP) Pulse Ox O2 Delivery O2 Flow Rate FiO2 10/06/18 20:37 71 20 98 Room Air 21 10/06/18 20:34 70 20 98 Room Air 21 10/06/18 19:07 116/53 10/06/18 18:13 97.7 10/06/18 16:00 97.8 61 22 116/53 (74) 96 10/06/18 15:46 62 10/06/18 13:24 58 22 99 Room Air 21 10/06/18 13:19 61 20 98 Room Air 21 10/06/18 12:00 97.7 59 22 141/77 (98) 96 10/06/18 11:55 65 10/06/18 10:45 61 22 98 Room Air 21 10/06/18 10:45 62 22 98 Room Air 21 10/06/18 09:14 126/70 10/06/18 08:35 Room Air Room Air 10/06/18 08:05 62 22 99 Room Air 21 10/06/18 08:00 97.7 60 20 126/70 (88) 100 10/06/18 07:59 58 20 98 Room Air 21 10/06/18 07:50 58 10/06/18 04:00 97.4 55 18 128/58 (81) 98 10/06/18 04:00 55 10/06/18 01:10 Room Air 21 10/06/18 01:09 Room Air 21 10/06/18 00:00 97.7 59 18 130/59 (82) 98 10/06/18 00:00 59 10/05/18 23:36 65 16 97 Room Air 21 10/05/18 23:35 62 26 97 Room Air 21 10/05/18 21:00 Room Air Room Air Intake and Output 10/05/18 10/06/18 18:59 06:59 Intake Total 1260 ml Output Total 1800 ml 3200 ml Balance -540 ml -3200 ml Intake Oral 1260 ml Output Urine Total 1800 ml 3200 ml # Bowel Movements 1 General Appearance: WD/WN, no acute distress HEENT: normocephalic, atraumatic, anicteric, mucous membranes moist Respiratory/Chest: chest wall non-tender, lungs clear, normal breath sounds, no respiratory distress, no accessory muscle use Cardiovascular: normal peripheral pulses, normal rate, regular rhythm Abdomen: normal bowel sounds, soft, non tender, no organomegaly, non distended , no mass Extremities: no cyanosis, no clubbing, no edema Current Medications Medications (Trade) Dose Ordered Sig/Virgen Route PRN Reason Start Time Stop Time Status Last Admin Dose Admin Acetaminophen/ Hydrocodone Bitart ([place] 10/325) 1 tab Q4H PRN ORAL For Pain 10/06/18 08:06 10/13/18 08:05 10/06/18 17:43 Albuterol/ Ipratropium (Albuterol/ Ipratropium) 3 ml Q4H PRN HHN Shortness of Breath 10/06/18 20:45 10/11/18 20:44 UNV Albuterol/ Ipratropium (Albuterol/ Ipratropium) 3 ml Q6HRT HHN 10/07/18 01:00 10/12/18 00:59 UNV Aspirin (ASA) 81 mg DAILY ORAL 10/01/18 09:00 10/31/18 08:59 10/06/18 09:13 Benazepril HCl (Lotensin) 20 mg BID ORAL 10/01/18 18:00 10/31/18 17:59 10/06/18 19:07 Ferrous Sulfate (Feosol) 325 mg DAILY ORAL 10/01/18 09:00 10/31/18 08:59 10/06/18 09:14 Furosemide (Lasix) 20 mg BID ORAL 09/30/18 18:00 10/30/18 17:59 10/06/18 19:07 Heparin Sodium (Porcine) (Heparin 5000 units/ml) 5,000 units EVERY 12 HOURS SUBQ 10/01/18 21:00 10/31/18 20:59 Montelukast Sodium (Singulair) 10 mg QHS ORAL 09/30/18 21:00 10/30/18 20:59 10/05/18 20:17 Pantoprazole (Protonix) 40 mg DAILY ORAL 10/02/18 09:00 11/01/18 08:59 10/06/18 09:14 Salmeterol Xinafoate/ Fluticasone (Advair 250/50 Diskus) 1 puffs EVERY 12 HOURS INH 10/01/18 09:00 10/31/18 08:59 10/06/18 20:34 Rashad Haji MD Oct 06, 2018 20:41
[2018-10-06] MEDS ORDERED: Albuterol/Ipratropium 3ml neb HHN PRN (20:45)
--- NOTE | 2018-10-06 21:28 | Cardiology Progress Note ---
Assessment/Plan Assessment/Plan 1. Dyspnea in this patient is due to acute exacerbation of asthma. 2D echocardiography in 2018 shows normal right atrial and right ventricular cavity , hyperdynamic LV function with LVEF of 75 to 80%. Transmitral flow velocity also shows normal intracardiac filling pressure and normal left atrial pressure. Recent cardiac MRI at [facility] was normal, nuclear stress test was nonischemic. 2. Bilateral lower extremity edema, unknown etiology, CT scan of the abdomen and pelvis ordered but the patient is not cooperative and refused the test. 3. Mild pulmonary HTN with RVSP at 41 mmHg by echo, normal V/Q scan. Subjective Subjective Sinus rhythm at rate of 71. Objective Last 24 Hour Vital Signs Date Time Temp Pulse Resp B/P (MAP) Pulse Ox O2 Delivery O2 Flow Rate FiO2 10/06/18 20:37 71 20 98 Room Air 21 10/06/18 20:34 70 20 98 Room Air 21 10/06/18 19:07 116/53 10/06/18 18:13 97.7 10/06/18 16:00 97.8 61 22 116/53 (74) 96 10/06/18 15:46 62 10/06/18 13:24 58 22 99 Room Air 21 10/06/18 13:19 61 20 98 Room Air 21 10/06/18 12:00 97.7 59 22 141/77 (98) 96 10/06/18 11:55 65 10/06/18 10:45 61 22 98 Room Air 21 10/06/18 10:45 62 22 98 Room Air 21 10/06/18 09:14 126/70 10/06/18 08:35 Room Air Room Air 10/06/18 08:05 62 22 99 Room Air 21 10/06/18 08:00 97.7 60 20 126/70 (88) 100 10/06/18 07:59 58 20 98 Room Air 21 10/06/18 07:50 58 10/06/18 04:00 97.4 55 18 128/58 (81) 98 10/06/18 04:00 55 10/06/18 01:10 Room Air 21 10/06/18 01:09 Room Air 21 10/06/18 00:00 97.7 59 18 130/59 (82) 98 10/06/18 00:00 59 10/05/18 23:36 65 16 97 Room Air 21 10/05/18 23:35 62 26 97 Room Air 21 Intake and Output 10/05/18 10/06/18 18:59 06:59 Intake Total 1260 ml Output Total 1800 ml 3200 ml Balance -540 ml -3200 ml Intake Oral 1260 ml Output Urine Total 1800 ml 3200 ml # Bowel Movements 1 2D Echo: Normal LV systolic and diastolic function, LVEF >75%, PAP 41 mmHg Objective HEENT: Atraumatic and normocephalic. Anicteric. Pupils are equal, round, and reactive to light and accommodation. Extraocular muscles intact. NECK: JVP is less than 5 cm. No carotid bruits. Carotid upstrokes 2+ bilaterally. CARDIOVASCULAR: Normal S1, S2. Distant heart sounds. No murmurs, gallops, or rubs. PMI is at fourth intercostal space in the midclavicular line. LUNGS: There is bilateral expiratory rhonchi, prolonged expiratory phase of breathing. No crackles. ABDOMEN: Soft, nontender, and nondistended. No hepatosplenomegaly. Positive bowel sounds. EXTREMITIES: There is 2+ bilateral pitting edema. Prosper Pittman MD Oct 06, 2018 21:28
[2018-10-07] VITALS: BP 119/54
[2018-10-07] MEDS: HYDROcodone/Acetamin 10/325 tab ORAL PRN ×4 (01:32→15:13)
--- NOTE | 2018-10-07 03:19 | NUR ---
NURSE NOTES: Patient asleep, breathing even and unlabored, no s/sx of pain nor any discomfort at this time. Bed at lowest position, call light wihtin reach. Will continue to monitor.
[2018-10-07 04:00] VITALS: BP 110/48
--- NOTE | 2018-10-07 07:28 | NUR ---
HAND-OFF: Report given to LAKEISHA Olmedo. Endorsed plan of care.
[2018-10-07] MEDS: Albuterol/Ipratropium 3ml neb HHN SCH ×2 (07:33→13:30)
--- NOTE | 2018-10-07 07:47 | NUR ---
NURSE NOTES: Pt in bed in low position, bed alarm on, has urinal at bedside at pt is unsteady for ambulation, no IV site as pt refuses, call light at bedside, pt makes needs known as pt is Ox4 for the most part has been friendly and cooperative as long as Pain meds are given every 4hrs, no s/s of distress or sob noted. pt should be down graded to medsurg.
[2018-10-07 08:00] VITALS: BP 125/47
[2018-10-07] MEDS: Advair 250/50 Inhaler - 14 dose INH SCH (09:00)
[2018-10-07] MEDS: Heparin 5000 units/ml inj SUBQ SCH (09:00)
[2018-10-07] MEDS: Benazepril 10mg tab ORAL SCH (10:13)
[2018-10-07] MEDS: Aspirin Baby 81mg ORAL SCH (10:13)
--- NOTE | 2018-10-07 11:58 | NUR ---
RD ASSESSMENT & RECOMMENDATIONS SEE CARE ACTIVITY FOR COMPLETE ASSESSMENT DAILY ESTIMATED NEEDS: Needs based on cardiac, pulmonary, obesity, 105kg abw 20-25 kcals/kg 5064-1424 total kcals 1-1.5 g protein/kg 105-158 g total protein Fluid per MD/ on lasix mL/kg total fluid mLs NUTRITION DIAGNOSIS: * Decreased sodium and fat intake needs R/T cardiac hx as evidenced by CHF dx, BLE 2+ edema, on diuretics, w/ BMI >40 at this time. CURRENT DIET: Cardiac PO DIET RECOMMENDATIONS: Maintain CARDIAC DIET ADDITIONAL RECOMMENDATIONS: * Daily standing wt or calibrated bedscale wt - CHF dx, on diuretics * Monitor lytes daily, replete as needed- on diuretics * Diet edu on Low Na diet provided on past admissions * Add HIGH PROTEIN snacks BID in b/w meals . .
[2018-10-07 12:00] VITALS: BP 142/73
--- NOTE | 2018-10-07 14:20 | NUR ---
RESPIRATORY NOTE: 1300 duoneb tx not given, notified LAKEISHA Olmedo. Patient is on room air 21%, no signs of distress.
--- NOTE | 2018-10-07 16:29 | NUR ---
NURSE NOTES: Patient discharged in stable condition. Patient provided with discharge education and instructions. Patient confirmed he was in possession of all his belongings. Patient ambulated to the lobby accompanied by the nurse. Patient did not display any signs of distress or SOB.
--- NOTE | 2018-10-07 21:27 | Pulmonology Progress Note ---
Assessment/Plan Assessment/Plan ASSESSMENT: The patient is a 63-year-old male, lifelong nonsmoker with a history of congestive heart failure with diastolic dysfunction, pulmonary hypertension, obesity, likely obstructive sleep apnea, known pulmonary nodules, anemia and asthma, presenting with recurrent NELLIE PROBLEM LIST: 1. Asthma without evidence of exacerbation. 2. CHF with diastolic dysfunction, 3. Bilateral lower extremity edema, likely secondary to above. 4. Known scattered bilateral subcentimeter nodules, stable on follow-up - per patient being followed up by PULMONARY @ [facility] 5. Anemia. 6. Hypertension. 7. Obesity. 8. Likely THERON. TREATMENT PLAN: 1. Optimize pulmonary hygiene/mobilize as tolerated. 2. P.r.n. O2 to keep saturations greater than 90%. 3. RTC and PRN HHN's 4. Advair 250/50 5. Observe off antibiotics and steroids 6. Monitor volumes, Lasix 20 PO BID per cards 7. Incentive spirometry 8. Continue to follow up with [facility] per the patient. 9. Declined CT AP 10. Should have a RHC at some point 11. DVT prophylaxis, heparin subcutaneous. 12. Weight-loss diet and exercise discussed again. Subjective Allergies: Coded Allergies: PENICILLINS (Verified Allergy, Unknown, 08/31/17) TRAMADOL (Verified Allergy, Unknown, 08/31/17) Subjective Seen earlier D/C'd since AFVSS on RA no edema no SOB no cough no wheezing Refused CT Objective Last 24 Hour Vital Signs Date Time Temp Pulse Resp B/P (MAP) Pulse Ox O2 Delivery O2 Flow Rate FiO2 10/07/18 13:00 Room Air 21 10/07/18 13:00 Room Air 21 10/07/18 12:00 97.5 59 22 142/73 (96) 100 10/07/18 10:43 97.5 10/07/18 10:13 125/47 10/07/18 10:04 65 20 98 Room Air 21 10/07/18 10:03 65 20 98 Room Air 21 10/07/18 08:48 Room Air Room Air 10/07/18 08:00 97.5 65 23 125/47 (73) 95 10/07/18 07:43 68 18 99 Room Air 21 10/07/18 07:42 68 10/07/18 07:33 68 16 98 Room Air 21 10/07/18 04:00 98.5 60 18 110/48 (68) 97 10/07/18 04:00 60 10/07/18 00:00 59 10/07/18 00:00 98.2 59 19 119/54 (75) 98 10/06/18 23:53 72 18 99 Room Air 21 10/06/18 23:43 70 16 98 Room Air 21 Intake and Output 10/06/18 10/07/18 19:00 07:00 Intake Total 720 ml Output Total 2900 ml Balance -2180 ml Intake Oral 720 ml Output Urine Total 2900 ml General Appearance: WD/WN, no acute distress HEENT: normocephalic, atraumatic, anicteric, mucous membranes moist Respiratory/Chest: chest wall non-tender, lungs clear, normal breath sounds, no respiratory distress, no accessory muscle use Cardiovascular: normal peripheral pulses, normal rate, regular rhythm Abdomen: normal bowel sounds, soft, non tender, no organomegaly, non distended , no mass Extremities: no cyanosis, no clubbing, no edema Rashad Haji MD Oct 07, 2018 21:27
--- NOTE | 2018-10-07 23:53 | Cardiology Progress Note ---
Assessment/Plan Assessment/Plan 1. Dyspnea in this patient is due to acute exacerbation of asthma. 2D echocardiography in 2018 shows normal right atrial and right ventricular cavity , hyperdynamic LV function with LVEF of 75 to 80%. Transmitral flow velocity also shows normal intracardiac filling pressure and normal left atrial pressure. Recent cardiac MRI at [facility] was normal, nuclear stress test was nonischemic. 2. Bilateral lower extremity edema, unknown etiology, CT scan of the abdomen and pelvis ordered but the patient is not cooperative and refused the test. 3. Mild pulmonary HTN with RVSP at 41 mmHg by echo, normal V/Q scan. Subjective Subjective Sinus rhythm at rate of 65. Objective Last 24 Hour Vital Signs Date Time Temp Pulse Resp B/P (MAP) Pulse Ox O2 Delivery O2 Flow Rate FiO2 10/07/18 13:00 Room Air 21 10/07/18 13:00 Room Air 21 10/07/18 12:00 97.5 59 22 142/73 (96) 100 10/07/18 10:43 97.5 10/07/18 10:13 125/47 10/07/18 10:04 65 20 98 Room Air 21 10/07/18 10:03 65 20 98 Room Air 21 10/07/18 08:48 Room Air Room Air 10/07/18 08:00 97.5 65 23 125/47 (73) 95 10/07/18 07:43 68 18 99 Room Air 21 10/07/18 07:42 68 10/07/18 07:33 68 16 98 Room Air 21 10/07/18 04:00 98.5 60 18 110/48 (68) 97 10/07/18 04:00 60 10/07/18 00:00 59 10/07/18 00:00 98.2 59 19 119/54 (75) 98 10/06/18 23:53 72 18 99 Room Air 21 Intake and Output 10/06/18 10/07/18 18:59 06:59 Intake Total 720 ml Output Total 2900 ml Balance -2180 ml Intake Oral 720 ml Output Urine Total 2900 ml 2D Echo: Normal LV systolic and diastolic function, LVEF >75%, PAP 41 mmHg Objective HEENT: Atraumatic and normocephalic. Anicteric. Pupils are equal, round, and reactive to light and accommodation. Extraocular muscles intact. NECK: JVP is less than 5 cm. No carotid bruits. Carotid upstrokes 2+ bilaterally. CARDIOVASCULAR: Normal S1, S2. Distant heart sounds. No murmurs, gallops, or rubs. PMI is at fourth intercostal space in the midclavicular line. LUNGS: There is bilateral expiratory rhonchi, prolonged expiratory phase of breathing. No crackles. ABDOMEN: Soft, nontender, and nondistended. No hepatosplenomegaly. Positive bowel sounds. EXTREMITIES: There is 2+ bilateral pitting edema. Prosper Pittman MD Oct 07, 2018 23:53
--- NOTE | 2018-10-09 11:41 | Discharge Summary ---
Discharge Summary Discharge Summary _ DATE OF ADMISSION: 09/30/2018 DATE OF DISCHARGE: 10/07/2018 DISCHARGED BY: Dr Shepard REASON FOR ADMISSION: 63 years old male with past medical history of hypertension, congestive heart failure, COPD/ asthma, obesity presented to emergency department complaining of acute worsening of bilateral leg edema. Patient had a history of chronic edema of the legs with multiply prior visits to ED . However patient presented complaining of worsening edema. He became short of breath and called paramedics. He denied fever and chills. He denied nausea, vomiting ,diarrhea. Upon evaluation vital signs were stable , pulse oximetry was stable on room air. Laboratory workup revealed no leukocytosis ,hemoglobin 10.5, hematocrit 33.5 . Stable electrolytes. BUN 31. creatinine 1.1. glucose 93. Stable LFT. Troponin negative, pro BNP 89. CK 18 ,lipase 155 . Urinalysis revealed no evidence of UTI. EKG revealed normal sinus rhythm no acute ischemic changes . Chest x-ray revealed cardiomegaly with evidence of congestive heart failure and small left pleural effusion. Patient was admitted for further management CONSULTANTS: grain trader Dr. Purcell pulmonary pain specialist Dr. Hurley HOSPITAL COURSE: Patient was admitted to telemetry floor. Cardiology and pulmonology consult were requested. Manager Performance followed. Echocardiogram in 2018 showed normal right atrial and right ventricular cavity, hyperdynamic LV function with ejection fraction of 75-80%. Transmitral flow velocity showed normal intracardiac filling pressures and normal left atrial pressure. Right ventricular systolic pressure of 41. Patient was on low dose of diuretic with close monitoring of volumes and cardiorenal parameters. Electrolytes corrected as needed. Antiplatelet therapy with aspirin was continued. Blood pressure was managed with BETHANY inhibitor. DVT and GI prophylaxis provided. Manager Performance recommended to avoid calcium channel marlyn as they could also caused edema. Recent cardiac MRI at [facility] was normal. Nuclear stress test was nonischemic ,as per patient. Traffic Division Commanding Officer followed. Supplemental oxygen provided to keep pulse oximetry above 92%. Hand held nebulizing treatment with bronchodilator provided [id number] and as needed. Patient was continued on Advair. Patient was observed off antibiotic and steroids. Incentive spirometry was taught and encouraged. Patient follows-up with shuttlecock assembler as an outpatient at [facility] pulmonary clinic. Patient was instructed on weight loss diet and exercise. Supportive care provided. . No evidence of asthma exacerbation as per shuttlecock assembler. Hemoglobin and hematocrit were closely monitored with goal to keep hemoglobin above 7, remain at the baseline. Edema somewhat decreased, Patient was clinically stabilized and ready for discharge home. Outpatient follow-up with primary care provider and shuttlecock assembler at [facility] pulmonary clinic. FINAL DIAGNOSES: CHF with diastolic dysfunction Asthma without evidence of exacerbation Bilateral lower extremity edema Scattered bilateral subcentimeter nodule, stable on follow-up Hypertension Obesity Likely obstructive sleep apnea Anemia Major depressive disorder DISCHARGE MEDICATIONS: See Medication Reconciliation list. DISCHARGE INSTRUCTIONS: Patient was discharged home. Follow up with primary care provider in one week. I have been assigned to dictate discharge summary for this account. I was not involved in the patient's management. Nga Mckee NP Oct 09, 2018 11:41
== END 2018-10-07 16:30 | disposition home or self-care (01) | DRG 194 ==
LOC: EDBD 11:04 → EMR 11:22 → 2E 11:45 → EDBEDREQ 11:50 → 2E 10-03 06:48
DX: I11.0 Hypertensive heart disease with heart failure (principal); I27.20 Pulmonary hypertension, unspecified; D64.9 Anemia, unspecified; E66.9 Obesity, unspecified; I50.33 Acute on chronic diastolic (congestive) heart failure; G47.33 Obstructive sleep apnea (adult) (pediatric); J45.909 Unspecified asthma, uncomplicated; F32.9 Major depressive disorder, single episode, unspecified; R91.8 Other nonspecific abnormal finding of lung field; Z88.6 Allergy status to analgesic agent; Z88.0 Allergy status to penicillin; F31.9 Bipolar disorder, unspecified; F14.10 Cocaine abuse, uncomplicated; G89.29 Other chronic pain; Z68.41 Body mass index [BMI] 40.0-44.9, adult
CPT/HCPCS: 36415; 71045; 80048; 80053; 81003; 82550; 82553; 83690; 83880; 84484; 85025; 87081; 93005; 94640; 94664; 96374; 96375; 99285; J2405; J7620

== ENCOUNTER 2018-10-30 14:01 | Inpatient (IN) | payer MEDICAID ==
[~2018-10-30] VITALS: Ht 188 cm; Wt 64.7 kg
[~2018-10-30 14:01] MED LIST changes: +UNOBMED
--- NOTE | 2018-10-30 14:20 | NUR ---
ED Nurse Note: patient walked in from [facility], complaining of both legs pain7/10, patient's legs are swollen. per patient he went to [facility] to renew his prescriptions for his medications. AAO x4, skin is dry, intact, VSS at this time. Will continue to monitor.
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
[2018-10-30] MEDS ORDERED: Morphine Sulfate 4mg/ml Inj (IV USE ONLY) IVP ONE (14:30)
[2018-10-30] MEDS ORDERED: Nitroglycerin 2% oint pkt TOPIC ONE (14:30)
--- NOTE | 2018-10-30 15:03 | Diagnostic Imaging Report ---
Indication: Dyspnea Technique: One view of the chest Comparison: 09/30/2018 Findings: Right hilar vascular fullness is again demonstrated, appears unchanged. The heart size is upper limits normal. Lungs and pleural spaces are clear. Impression: No acute process
[2018-10-30 15:04] LABS: BASOPHILS % (AUTO) 1.9 % (0.0-2.0); HEMATOCRIT 33.9 % (42.0-52.0); HEMOGLOBIN 10.3 G/DL (14.2-18.0); LYMPHOCYTES % (AUTO) 32.6 % (20.0-45.0); MEAN CORPUSCULAR VOLUME 83 FL (80-99); MONOCYTES % (AUTO) 9.8 % (1.0-10.0); NEUTROPHILS % (AUTO) 49.6 % (45.0-75.0); PLATELET COUNT 141 K/UL (150-450); RED CELL DISTRIBUTION WIDTH 14.9 % (11.6-14.8); WHITE BLOOD COUNT 5.5 K/UL (4.8-10.8)
[2018-10-30 15:23] LABS: ANION GAP 11 mmol/L (5-15); BLOOD UREA NITROGEN 31 mg/dL (7-18); CALCIUM 9.1 MG/DL (8.5-10.1); CARBON DIOXIDE 24 MMOL/L (21-32); CHLORIDE 104 MMOL/L (98-107); CREATININE 1.2 MG/DL (0.55-1.30); POTASSIUM 4.7 MMOL/L (3.5-5.1); SODIUM 139 MMOL/L (136-145)
[2018-10-30 15:38] LABS: ALANINE AMINOTRANSFERASE 27 U/L (12-78); ALBUMIN/GLOBULIN RATIO 0.6 (1.0-2.7); ALKALINE PHOSPHATASE 73 U/L (46-116); ASPARTATE AMINO TRANSFERASE 19 U/L (15-37); BILIRUBIN,TOTAL 0.2 MG/DL (0.2-1.0); CREATINE KINASE 165 U/L (26-308)
[2018-10-30 15:42] LABS: APPEARANCE,URINE CLEAR; BILIRUBIN, URINE NEGATIVE (NEGATIVE); COLOR,URINE PALE YELLOW; GLUCOSE, URINE (UA) NEGATIVE (NEGATIVE); KETONES,URINE NEGATIVE (NEGATIVE); LEUKOCYTE ESTERASE ,URINE NEGATIVE (NEGATIVE); NITRITE,URINE NEGATIVE (NEGATIVE); PH,URINE 6 (4.5-8.0); PROTEIN,URINE NEGATIVE (NEGATIVE); UROBILINOGEN,URINE NORMAL MG/DL (0.0-1.0)
[2018-10-30 15:46] VITALS: BP 140/70
--- NOTE | 2018-10-30 15:55 | NUR ---
ED Nurse Note: US at the bedside
--- NOTE | 2018-10-30 16:00 | NUR ---
ED Nurse Note: US tech at bedside
[2018-10-30 17:00] VITALS: BP 142/70
[2018-10-30] MEDS ORDERED: Vancomycin 1.5gm Premix 275 ML IVPB ONE (17:00)
--- NOTE | 2018-10-30 17:04 | Diagnostic Imaging Report ---
Indication: Bilateral leg pain and swelling Technique: Grayscale and duplex images of the bilateral neural extremity deep veins Comparison: none Findings: Noted that bilaterally, the calf veins could not be imaged, due to excessive soft tissue edema in both legs. Bilaterally, grayscale duplex images demonstrate no evidence of intraluminal thrombus. Normal compressibility of all deep venous structures. Normal phasic Doppler waveforms, demonstrating normal augmentation response and no evidence of valvular insufficiency. Impression: Negative for lower extremity deep venous thrombosis bilaterally Note inability to visualize the calf veins due to soft tissue edema
[2018-10-30] MEDS ORDERED: Vancomycin 1.5 GM in D5W 275 ML IVPB ONE (17:15)
--- NOTE | 2018-10-30 18:39 | Cardiac Electrophysiology PN ---
Assessment/Plan Assessment/Plan 1. Accelerated hypertension. Avoid beta-marlyn in view of active cocaine use. Start Lasix 40 mg IV bid. 2. Severe bilateral lower extremity edema. EF 60% with diastolic dysfunction. 3. Morbid obesity. 4. COPD. 5. Asthma, on Advair. 6. Cocaine use Subjective Subjective Was at [facility] for wheezing for a week and was DCed last week. Now is here for Bilateral LE edema. Objective Last 24 Hour Vital Signs Date Time Temp Pulse Resp B/P (MAP) Pulse Ox O2 Delivery O2 Flow Rate FiO2 10/30/18 17:00 98.4 56 18 142/70 99 Room Air 10/30/18 15:46 98.4 68 22 140/70 92 Room Air 10/30/18 15:42 70 19 Room Air 10/30/18 15:00 138/65 10/30/18 14:03 98.2 76 16 171/70 94 Room Air Laboratory Tests Test 10/30/18 14:52 10/30/18 15:14 10/30/18 15:15 White Blood Count 5.5 K/UL (4.8-10.8) Red Blood Count 4.10 M/UL (4.70-6.10) L Hemoglobin 10.3 G/DL (14.2-18.0) L Hematocrit 33.9 % (42.0-52.0) L Mean Corpuscular Volume 83 FL (80-99) Mean Corpuscular Hemoglobin 25.1 PG (27.0-31.0) L Mean Corpuscular Hemoglobin Concent 30.4 G/DL (32.0-36.0) L Red Cell Distribution Width 14.9 % (11.6-14.8) H Platelet Count 141 K/UL (150-450) L Mean Platelet Volume 7.9 FL (6.5-10.1) Neutrophils (%) (Auto) 49.6 % (45.0-75.0) Lymphocytes (%) (Auto) 32.6 % (20.0-45.0) Monocytes (%) (Auto) 9.8 % (1.0-10.0) Eosinophils (%) (Auto) 6.0 % (0.0-3.0) H Basophils (%) (Auto) 1.9 % (0.0-2.0) Prothrombin Time 10.5 SEC (9.30-11.50) Prothromb Time International Ratio 1.0 (0.9-1.1) Activated Partial Thromboplast Time 27 SEC (23-33) Sodium Level 139 MMOL/L (136-145) Potassium Level 4.7 MMOL/L (3.5-5.1) Chloride Level 104 MMOL/L (98-107) Carbon Dioxide Level 24 MMOL/L (21-32) Anion Gap 11 mmol/L (5-15) Blood Urea Nitrogen 31 mg/dL (7-18) H Creatinine 1.2 MG/DL (0.55-1.30) Estimat Glomerular Filtration Rate > 60 mL/min (>60) Glucose Level 110 MG/DL (74-106) H Lactic Acid Level 1.80 mmol/L (0.4-2.0) Calcium Level 9.1 MG/DL (8.5-10.1) Magnesium Level 2.1 MG/DL (1.8-2.4) Total Bilirubin 0.2 MG/DL (0.2-1.0) Aspartate Amino Transf (AST/SGOT) 19 U/L (15-37) Alanine Aminotransferase (ALT/SGPT) 27 U/L (12-78) Alkaline Phosphatase 73 U/L (46-116) Total Creatine Kinase 165 U/L (26-308) Troponin I 0.005 ng/mL (0.000-0.056) C-Reactive Protein, Quantitative 4.9 mg/dL (0.00-0.90) H Pro-B-Type Natriuretic Peptide 139 pg/mL (0-125) H Total Protein 7.7 G/DL (6.4-8.2) Albumin 3.0 G/DL (3.4-5.0) L Globulin 4.7 g/dL Albumin/Globulin Ratio 0.6 (1.0-2.7) L Thyroid Stimulating Hormone (TSH) 0.707 uiU/mL (0.358-3.740) Erythrocyte Sedimentation Rate 110 MM/HR (0-20) H Urine Color Pale yellow Urine Appearance Clear Urine pH 6 (4.5-8.0) Urine Specific [place] 1.015 (1.005-1.035) Urine Protein Negative (NEGATIVE) Urine Glucose (UA) Negative (NEGATIVE) Urine Ketones Negative (NEGATIVE) Urine Blood Negative (NEGATIVE) Urine Nitrite Negative (NEGATIVE) Urine Bilirubin Negative (NEGATIVE) Urine Urobilinogen Normal MG/DL (0.0-1.0) Urine Leukocyte Esterase Negative (NEGATIVE) Objective HEAD AND NECK: No JVD LUNGS: Clear. CARDIOVASCULAR: Regular S1 and S2 with no gallop or murmur. ABDOMEN: Soft. EXTREMITIES: 2+ bilateral pitting edema. Prosper Crum MD Oct 30, 2018 18:39
[2018-10-30 18:49] VITALS: BP 120/65
--- NOTE | 2018-10-30 18:51 | NUR ---
NURSE NOTES: RECEIVED REPORT FROM LAKEISHA VICTORIA. PT ARRIVED ON UNIT IN STABLE CONDITION. RN ATTEMPTED TO CHECK BELONGINGS AT BEDSIDE. PT DOES NOT WANT RN TO GO THROUGH [facility] OR BELONGINGS IN THE AMUSEMENT PARK ENTERTAINER TRAY'S BAG. PT STATED VERBALLY WHAT BELONGINGS HE HAD. RN OFFERED KEEPING VALUABLES IN NURSE ACCOUNTS PAYABLE ACCOUNTANT'S SAFE UNTIL DISCHARGE. PT DECLINES. PT SIGNED RELEASE OF LIABILITY ON BELONGINGS SHEET. VSS AND IN NO APPARENT DISTRESS AT THIS TIME. CALL LIGHT WITHIN REACH.
--- NOTE | 2018-10-30 19:27 | NUR ---
ED Nurse Note: patient was admited to med surg, was transfered by ACLS protocol.
--- NOTE | 2018-10-30 19:31 | NUR ---
HAND-OFF: Report given to Mariana ORTIZ RN.
--- NOTE | 2018-10-30 20:00 | NUR ---
Patient awake in bed, demanding pain meds and food. Dr Shepard and Dr Hurley called for admission orders. Urine drug screen positive for THC, Dr Shepard aware.
[2018-10-30] MEDS ORDERED: Albuterol ud Inhalation HHN PRN (20:27)
[2018-10-30] MEDS: Depakote ER 250mg tab ORAL SCH ×2 (21:00→21:13)
[2018-10-30] MEDS: HYDROcodone/Acetamin 10/325 tab ORAL PRN (22:09)
[2018-10-31] VITALS: BP 126/55
--- NOTE | 2018-10-31 03:30 | History and Physical Report ---
DATE OF ADMISSION: 10/30/2018 NOTE: POOR AUDIO HISTORY OF PRESENT ILLNESS: The patient comes back again edema and CHF, however, we do not think that the patient is compliant. The patient is also dependent on pain medication. I do not believe that the patient is compliant with his medication . Reports orthopnea, worsening leg edema, and . Denies cough. No fever or chills. PAST MEDICAL HISTORY: Leg edema severe, COPD, CHF, iron deficiency anemia, depression, altered mental status, hypertension, hyperlipidemia. PAST SURGICAL HISTORY: . ALLERGIES: To tramadol and penicillin. . SOCIAL HISTORY: Denies alcohol or illicit drugs. REVIEW OF SYSTEMS: HEENT: Denies headaches. RESPIRATORY: Reports shortness of breath and orthopnea. CARDIOVASCULAR: Reports chest pain. GASTROINTESTINAL: Denies nausea, vomiting, or diarrhea. EXTREMITIES: There was chronic pain syndrome and leg edema. CENTRAL NERVOUS SYSTEMS: Denies change in vision or speech pattern. MEDICATIONS: Supposed to be on benazepril, , Protonix, inhalers, and simvastatin. PHYSICAL EXAMINATION: VITAL SIGNS: Temperature 98.4, pulse is 60, blood pressure 143/70. HEENT: PERRLA. NECK: Supple. No lymphadenopathy. CHEST: Clear to auscultation. CARDIOVASCULAR: Regular rate and rhythm. GASTROINTESTINAL: Soft, distended. Positive bowel sounds. No organomegaly. EXTREMITIES: 2+ pitting edema in bilateral extremities. The patient has edema allover. Reflexes equal on both sides. Moves all 4 extremities. Sensory intact to light touch. LABORATORY DATA: WBC of 5.5, hemoglobin 10.3, platelets 141. Sodium 139, potassium 4.7, BUN of 31, creatinine 1.2. ASSESSMENT: CHF exacerbation. Worsening leg edema. I have asked Dr. Hardwick and Dr. Crum as well as Dr. Haji to see the patient for the above-mentioned diagnoses and treatment. Brittney Shepard M.D. DR: AUDREY JOB#: [id number] CC:
[2018-10-31] MEDS: HYDROcodone/Acetamin 10/325 tab ORAL PRN ×4 (03:31→21:03)
[2018-10-31 04:00] VITALS: BP 116/61
--- NOTE | 2018-10-31 07:16 | NUR ---
HAND-OFF: Report given to LAKEISHA Trevino.
--- NOTE | 2018-10-31 07:41 | NUR ---
NURSE NOTES: Received patient from Geoff RN, patient is resting in bed and agitated, able to redirect patient, bed is locked and in lowest position, call light within reach, will continue to monitor.
[2018-10-31 07:46] LABS: BASOPHILS % (AUTO) 1.7 % (0.0-2.0); EOSINOPHILS % (AUTO) 5.4 % (0.0-3.0); HEMATOCRIT 31.1 % (42.0-52.0); HEMOGLOBIN 9.6 G/DL (14.2-18.0); LYMPHOCYTES % (AUTO) 50.3 % (20.0-45.0); MEAN CORPUSCULAR VOLUME 82 FL (80-99); NEUTROPHILS % (AUTO) 31.7 % (45.0-75.0); PLATELET COUNT 203 K/UL (150-450); RED BLOOD COUNT 3.81 M/UL (4.70-6.10); RED CELL DISTRIBUTION WIDTH 14.8 % (11.6-14.8); WHITE BLOOD COUNT 5.4 K/UL (4.8-10.8)
[2018-10-31 08:00] VITALS: BP 94/65
[2018-10-31 08:28] LABS: ANION GAP 7 mmol/L (5-15); BLOOD UREA NITROGEN 24 mg/dL (7-18); CALCIUM 9.3 MG/DL (8.5-10.1); CARBON DIOXIDE 28 MMOL/L (21-32); CHLORIDE 104 MMOL/L (98-107); POTASSIUM 3.9 MMOL/L (3.5-5.1); SODIUM 139 MMOL/L (136-145)
[2018-10-31] MEDS: Aspirin Baby 81mg ORAL SCH (08:39)
--- NOTE | 2018-10-31 09:02 | NUR ---
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 CELLULITIS VS: BP 171/70, P 56, T 98.2, RR 16, SpO2 98 BUN 31, RBC 4.10, Hgb 10.3, Hct 33.9, Plt COUNT 141 VENOUS DUPLEX Impression: Negative for lower extremity deep venous thrombosis bilaterally CXR Findings: Right hilar vascular fullness is again demonstrated, appears unchanged. The heart size is upper limits normal. IS:ZOFRAN 4mg IVP LASIX 40mg IV MORPHINE 4mg NITRO-BID 1 inch Topical VANCOMYCIN 275 ml ADMITTED TO MED/SURG DC PLAN: RETURN HOME
--- NOTE | 2018-10-31 09:34 | General Progress Note ---
Assessment/Plan Assessment/Plan (1) B/L LE pain (2) Edema (3) B/L knee pain (4) B/L Knee OA (5) Morbid obesity Pt to be continued on [place]. D/w Dr. Hurley and he concurred. Subjective Date patient seen: Oct 31, 2018 Time patient seen: 08:15 - am Allergies: Coded Allergies: PENICILLINS (Verified Allergy, Unknown, 08/31/17) TRAMADOL (Verified Allergy, Unknown, 08/31/17) Subjective Constitutional: Reports: no symptoms HEENT: Reports: no symptoms Cardiovascular: Reports: no symptoms Respiratory: Reports: no symptoms Gastrointestinal/Abdominal: Reports: no symptoms Genitourinary: Reports: no symptoms Neurologic/Psychiatric: Reports: no symptoms Endocrine: Reports: no symptoms Hematologic/Lymphatic: Reports: no symptoms Subjective Patient is a known patient from prior admission and continues to c/o Knee pain b /l. Now on [place] 10/325mg Q4H PRN. He is in bed and showing no signs of pain or distress, pain has been tolerated on the [place]. Objective Last 24 Hour Vital Signs Date Time Temp Pulse Resp B/P (MAP) Pulse Ox O2 Delivery O2 Flow Rate FiO2 10/31/18 09:09 97.7 10/31/18 08:31 74 20 Room Air 21 10/31/18 04:00 97.7 63 20 116/61 (79) 96 10/31/18 00:00 97.9 66 18 126/55 (78) 96 10/30/18 21:00 Room Air 10/30/18 19:26 98.0 78 18 135/76 99 Room Air 10/30/18 18:49 96.3 61 18 120/65 (83) 100 10/30/18 17:00 98.4 56 18 142/70 99 Room Air 10/30/18 15:46 98.4 68 22 140/70 92 Room Air 10/30/18 15:42 70 19 Room Air 10/30/18 15:00 138/65 10/30/18 14:03 98.2 76 16 171/70 94 Room Air Intake and Output 10/30/18 10/31/18 19:00 07:00 Intake Total 1500 ml Output Total 1000 ml Balance 500 ml Intake Oral 1500 ml Output Urine Total 1000 ml # Voids 2 Laboratory Tests 10/30/18 14:52: White Blood Count 5.5, Red Blood Count 4.10L, Hemoglobin 10.3L, Hematocrit 33.9L , Mean Corpuscular Volume 83, Mean Corpuscular Hemoglobin 25.1L, Mean Corpuscular Hemoglobin Concent 30.4L, Red Cell Distribution Width 14.9H, Platelet Count 141L, Mean Platelet Volume 7.9, Neutrophils (%) (Auto) 49.6, Lymphocytes (%) (Auto) 32.6, Monocytes (%) (Auto) 9.8, Eosinophils (%) (Auto) 6.0H, Basophils (%) (Auto) 1.9, Prothrombin Time 10.5, Prothromb Time International Ratio 1.0, Activated Partial Thromboplast Time 27, Sodium Level 139, Potassium Level 4.7, Chloride Level 104, Carbon Dioxide Level 24, Anion Gap 11, Blood Urea Nitrogen 31H, Creatinine 1.2, Estimat Glomerular Filtration Rate > 60, Glucose Level 110H, Lactic Acid Level 1.80, Calcium Level 9.1, Magnesium Level 2.1, Total Bilirubin 0.2, Aspartate Amino Transf (AST/SGOT) 19, Alanine Aminotransferase (ALT/SGPT) 27, Alkaline Phosphatase 73, Total Creatine Kinase 165, Troponin I 0.005, C-Reactive Protein, Quantitative 4.9H, Pro-B-Type Natriuretic Peptide 139H, Total Protein 7.7, Albumin 3.0L, Globulin 4.7, Albumin /Globulin Ratio 0.6L, Thyroid Stimulating Hormone (TSH) 0.707 10/30/18 15:14: Erythrocyte Sedimentation Rate 110H 10/30/18 15:15: Urine Color Pale yellow, Urine Appearance Clear, Urine pH 6, Urine Specific [place] 1.015, Urine Protein Negative, Urine Glucose (UA) Negative, Urine Ketones Negative, Urine Blood Negative, Urine Nitrite Negative, Urine Bilirubin Negative, Urine Urobilinogen Normal, Urine Leukocyte Esterase Negative 10/30/18 21:45: Urine Opiates Screen Negative, Urine Barbiturates Screen Negative, Phencyclidine (PCP) Screen Negative, Urine Amphetamines Screen Negative, Urine Benzodiazepines Screen Negative, Urine Cocaine Screen Negative, Urine Marijuana (THC) Screen PositiveH 10/31/18 05:56: White Blood Count 5.4, Red Blood Count 3.81L, Hemoglobin 9.6L, Hematocrit 31.1L , Mean Corpuscular Volume 82, Mean Corpuscular Hemoglobin 25.3L, Mean Corpuscular Hemoglobin Concent 31.0L, Red Cell Distribution Width 14.8, Platelet Count 203, Mean Platelet Volume 8.2, Neutrophils (%) (Auto) 31.7L, Lymphocytes (%) (Auto) 50.3H, Monocytes (%) (Auto) 11.0H, Eosinophils (%) (Auto ) 5.4H, Basophils (%) (Auto) 1.7, Sodium Level 139, Potassium Level 3.9, Chloride Level 104, Carbon Dioxide Level 28, Anion Gap 7, Blood Urea Nitrogen 24H, Creatinine 1.0, Estimat Glomerular Filtration Rate > 60, Glucose Level 88, Calcium Level 9.3, Pro-B-Type Natriuretic Peptide 163H Height (Feet): 6 Height (Inches): 2.00 Weight (Pounds): 201 Objective General Appearance: no apparent distress, alert EENT: PERRL/EOMI Neck: normal alignment, supple Cardiovascular: normal rate, regular rhythm Respiratory/Chest: decreased breath sounds Abdomen: soft Extremities: non-tender Edema: edema noted Neurologic: alert, oriented x 3 Skin: warm/dry Leonel Singer Oct 31, 2018 09:34
--- NOTE | 2018-10-31 11:29 | Cardiac Electrophysiology PN ---
Assessment/Plan Assessment/Plan 1. Accelerated hypertension. Avoid beta-marlyn in view of cocaine use. On Lasix 40 mg IV bid.Refusing. Wants only 20 iv bid as is worried about his kidneys 2. Severe bilateral lower extremity edema. EF 60% with diastolic dysfunction. 3. Morbid obesity. 4. COPD. 5. Asthma, on Advair. 6. Cocaine use 7. Noncompliance Subjective Subjective Refusing iv Lasix 40! very noncompliant Objective Last 24 Hour Vital Signs Date Time Temp Pulse Resp B/P (MAP) Pulse Ox O2 Delivery O2 Flow Rate FiO2 10/31/18 09:09 97.7 10/31/18 08:31 74 20 Room Air 21 10/31/18 08:00 Room Air 10/31/18 08:00 98.5 73 20 94/65 (75) 98 10/31/18 04:00 97.7 63 20 116/61 (79) 96 10/31/18 00:00 97.9 66 18 126/55 (78) 96 10/30/18 21:00 Room Air 10/30/18 19:26 98.0 78 18 135/76 99 Room Air 10/30/18 18:49 96.3 61 18 120/65 (83) 100 10/30/18 17:00 98.4 56 18 142/70 99 Room Air 10/30/18 15:46 98.4 68 22 140/70 92 Room Air 10/30/18 15:42 70 19 Room Air 10/30/18 15:00 138/65 10/30/18 14:03 98.2 76 16 171/70 94 Room Air Intake and Output 10/30/18 10/31/18 19:00 07:00 Intake Total 1500 ml Output Total 1000 ml Balance 500 ml Intake Oral 1500 ml Output Urine Total 1000 ml # Voids 2 Laboratory Tests Test 10/30/18 14:52 10/30/18 15:14 10/30/18 15:15 10/30/18 21:45 White Blood Count 5.5 K/UL (4.8-10.8) Red Blood Count 4.10 M/UL (4.70-6.10) L Hemoglobin 10.3 G/DL (14.2-18.0) L Hematocrit 33.9 % (42.0-52.0) L Mean Corpuscular Volume 83 FL (80-99) Mean Corpuscular Hemoglobin 25.1 PG (27.0-31.0) L Mean Corpuscular Hemoglobin Concent 30.4 G/DL (32.0-36.0) L Red Cell Distribution Width 14.9 % (11.6-14.8) H Platelet Count 141 K/UL (150-450) L Mean Platelet Volume 7.9 FL (6.5-10.1) Neutrophils (%) (Auto) 49.6 % (45.0-75.0) Lymphocytes (%) (Auto) 32.6 % (20.0-45.0) Monocytes (%) (Auto) 9.8 % (1.0-10.0) Eosinophils (%) (Auto) 6.0 % (0.0-3.0) H Basophils (%) (Auto) 1.9 % (0.0-2.0) Prothrombin Time 10.5 SEC (9.30-11.50) Prothromb Time International Ratio 1.0 (0.9-1.1) Activated Partial Thromboplast Time 27 SEC (23-33) Sodium Level 139 MMOL/L (136-145) Potassium Level 4.7 MMOL/L (3.5-5.1) Chloride Level 104 MMOL/L (98-107) Carbon Dioxide Level 24 MMOL/L (21-32) Anion Gap 11 mmol/L (5-15) Blood Urea Nitrogen 31 mg/dL (7-18) H Creatinine 1.2 MG/DL (0.55-1.30) Estimat Glomerular Filtration Rate > 60 mL/min (>60) Glucose Level 110 MG/DL (74-106) H Lactic Acid Level 1.80 mmol/L (0.4-2.0) Calcium Level 9.1 MG/DL (8.5-10.1) Magnesium Level 2.1 MG/DL (1.8-2.4) Total Bilirubin 0.2 MG/DL (0.2-1.0) Aspartate Amino Transf (AST/SGOT) 19 U/L (15-37) Alanine Aminotransferase (ALT/SGPT) 27 U/L (12-78) Alkaline Phosphatase 73 U/L (46-116) Total Creatine Kinase 165 U/L (26-308) Troponin I 0.005 ng/mL (0.000-0.056) C-Reactive Protein, Quantitative 4.9 mg/dL (0.00-0.90) H Pro-B-Type Natriuretic Peptide 139 pg/mL (0-125) H Total Protein 7.7 G/DL (6.4-8.2) Albumin 3.0 G/DL (3.4-5.0) L Globulin 4.7 g/dL Albumin/Globulin Ratio 0.6 (1.0-2.7) L Thyroid Stimulating Hormone (TSH) 0.707 uiU/mL (0.358-3.740) Erythrocyte Sedimentation Rate 110 MM/HR (0-20) H Urine Color Pale yellow Urine Appearance Clear Urine pH 6 (4.5-8.0) Urine Specific [place] 1.015 (1.005-1.035) Urine Protein Negative (NEGATIVE) Urine Glucose (UA) Negative (NEGATIVE) Urine Ketones Negative (NEGATIVE) Urine Blood Negative (NEGATIVE) Urine Nitrite Negative (NEGATIVE) Urine Bilirubin Negative (NEGATIVE) Urine Urobilinogen Normal MG/DL (0.0-1.0) Urine Leukocyte Esterase Negative (NEGATIVE) Urine Opiates Screen Negative (NEGATIVE) Urine Barbiturates Screen Negative (NEGATIVE) Phencyclidine (PCP) Screen Negative (NEGATIVE) Urine Amphetamines Screen Negative (NEGATIVE) Urine Benzodiazepines Screen Negative (NEGATIVE) Urine Cocaine Screen Negative (NEGATIVE) Urine Marijuana (THC) Screen Positive (NEGATIVE) H Test 10/31/18 05:56 White Blood Count 5.4 K/UL (4.8-10.8) Red Blood Count 3.81 M/UL (4.70-6.10) L Hemoglobin 9.6 G/DL (14.2-18.0) L Hematocrit 31.1 % (42.0-52.0) L Mean Corpuscular Volume 82 FL (80-99) Mean Corpuscular Hemoglobin 25.3 PG (27.0-31.0) L Mean Corpuscular Hemoglobin Concent 31.0 G/DL (32.0-36.0) L Red Cell Distribution Width 14.8 % (11.6-14.8) Platelet Count 203 K/UL (150-450) Mean Platelet Volume 8.2 FL (6.5-10.1) Neutrophils (%) (Auto) 31.7 % (45.0-75.0) L Lymphocytes (%) (Auto) 50.3 % (20.0-45.0) H Monocytes (%) (Auto) 11.0 % (1.0-10.0) H Eosinophils (%) (Auto) 5.4 % (0.0-3.0) H Basophils (%) (Auto) 1.7 % (0.0-2.0) Sodium Level 139 MMOL/L (136-145) Potassium Level 3.9 MMOL/L (3.5-5.1) Chloride Level 104 MMOL/L (98-107) Carbon Dioxide Level 28 MMOL/L (21-32) Anion Gap 7 mmol/L (5-15) Blood Urea Nitrogen 24 mg/dL (7-18) H Creatinine 1.0 MG/DL (0.55-1.30) Estimat Glomerular Filtration Rate > 60 mL/min (>60) Glucose Level 88 MG/DL (74-106) Calcium Level 9.3 MG/DL (8.5-10.1) Pro-B-Type Natriuretic Peptide 163 pg/mL (0-125) H Objective HEAD AND NECK: No JVD LUNGS: Clear. CARDIOVASCULAR: Regular S1 and S2 with no gallop or murmur. ABDOMEN: Soft. EXTREMITIES: 2+ bilateral pitting edema. Prosper Crum MD Oct 31, 2018 11:29
--- NOTE | 2018-10-31 11:48 | NUR ---
CHARGE NURSE NOTES: Patient refusing Lasix 20mg IV BID, patient verbalized, PCP only recommends 20 mg total a day. Also refusing Cardiac diet, prefers Regular. Dr. Rice made aware. orders received, carried out.
[2018-10-31 12:00] VITALS: BP 127/70
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
[2018-10-31 16:00] VITALS: BP 117/63
--- NOTE | 2018-10-31 16:55 | Consultation ---
Consult Note Consult Note Consult Note DATE OF CONSULTATION: 10/31/2018 PULMONARY CONSULTATION CONSULTING PHYSICIAN: Rashad Haji M.D. REFERRING PHYSICIAN: Brittney Shepard M.D. REASON FOR CONSULTATION: Shortness of breath. HISTORY OF PRESENT ILLNESS: The patient is a 63-year-old male with multiple admissions for CHF and COPD, recently discharged after p/w recurrent NELLIE, admitted for diuresis. His breathing is @ baseline. No F/C/CP/SOB/N/V/D/C/ abdominal pain/urinary complaints. He states he was recently admitted @ [facility] with a CHF exacerbation PAST MEDICAL HISTORY: 1. Congestive heart failure. 2. Obesity. 3. Likely THERON. 4. Asthma. 5. Hypertension. 6. Anemia. 7. Protein-calorie malnutrition. ALLERGIES: Penicillin and tramadol. MEDICATIONS: Active Scripts Medications Dose Route/Sig Max Daily Dose Days Date Category Dose Instructions Unable To Obtain Meds (Unable to Obtain Medications) 1 Ea Ea 09/30/18 Reported Lasix* (Furosemide) 20 Mg Tablet 20 Mg ORAL BID 09/12/18 Rx Pantoprazole 20 Mg Tablet.dr 40 Mg ORAL DAILY 08/22/18 Reported Albuterol Sulfate Hhn* (Albuterol Sulfate) 2.5 Mg/3 Ml Vial.neb 3 Ml INH Q6H PRN 07/30/18 Reported Depakote Er* (Divalproex Sodium) 500 Mg Tab.er.24h 750 Mg ORAL BEDTIME 07/30/18 Reported Iron (Ferrous Sulfate) 325 Mg Tablet Unknown Dose PO 07/21/18 Reported [place] 10-325* (Acetaminophen/Hydrocodone Bitart) 1 Each Tablet 1 Tab ORAL Q4H PRN 06/23/18 Reported PRN PAIN Zocor (Simvastatin) 20 Mg Tablet 20 Mg ORAL BEDTIME 06/23/18 Reported Advair 250-50 Diskus (Salmeterol Xinafoate/Fluticasone) 1 Each Blst.w.dev 1 Puff INH EVERY 12 HOURS 04/22/18 Reported Benazepril Hcl* (Benazepril HCl) 20 Mg Tablet 10 Mg ORAL BID 03/30/18 Reported Singulair* (Montelukast Sodium) 10 Mg Tablet 10 Mg ORAL DAILY 08/31/17 Reported Aspirin* (Aspirin) 81 Mg Tab.chew 81 Mg ORAL DAILY 08/31/17 Reported SOCIAL HISTORY: No tobacco, alcohol, or drug use. FAMILY HISTORY: Noncontributory. REVIEW OF SYSTEMS: Negative other than history of present illness. PHYSICAL EXAMINATION: Last 24 Hour Vital Signs Date Time Temp Pulse Resp B/P (MAP) Pulse Ox O2 Delivery O2 Flow Rate FiO2 10/31/18 16:00 98.2 64 20 117/63 (81) 96 10/31/18 14:32 98.7 10/31/18 12:00 98.7 65 20 127/70 (89) 99 10/31/18 08:31 74 20 Room Air 21 10/31/18 08:00 Room Air 10/31/18 08:00 98.5 73 20 94/65 (75) 98 10/31/18 04:00 97.7 63 20 116/61 (79) 96 10/31/18 00:00 97.9 66 18 126/55 (78) 96 10/30/18 21:00 Room Air 10/30/18 19:26 98.0 78 18 135/76 99 Room Air 10/30/18 18:49 96.3 61 18 120/65 (83) 100 10/30/18 17:00 98.4 56 18 142/70 99 Room Air GENERAL: He is a well-developed, well-nourished male, in no acute distress. Awake, alert, and oriented x3. HEENT: Normocephalic and atraumatic. Oropharynx clear with moist mucous membranes. NECK: Supple without lymphadenopathy. JVP is elevated. CHEST: Clear. Decreased at the bases. No wheezing. HEART: Regular rhythm. ABDOMEN: Soft and nondistended. EXTREMITIES: No cyanosis, clubbing, 2+ NELLIE ANCILLARY DATA: CXR: NAD DUPLEX: no DVT 08/22/18 CT CHEST: Findings: The lungs are clear. No pleural effusion identified. No mediastinal fluid or adenopathy appreciated. No acute fractures are identified. There are probable old rib fractures posteriorly on the left. Chest wall appears unremarkable. Visualized upper abdomen is unremarkable. 06/25/18 TTE: Mild left ventricular enlargement. Normal left ventricular systolic function and wall motion. Left ventricular ejection fraction estimated to be 60 %. Mild left ventricular hypertrophy. No evidence of pericardial effusion. Mild bi-atrial enlargement. Mild right ventricular enlargement. Focal aortic valve sclerosis with adequate cusp excursion. Thickened mitral valve leaflets with normal excursion. Mild mitral annulus and aortic root calcification. Normal pulmonic valve structure. Normal tricuspid valve structure. IVC dilated at 3.1 cm with physiological collapse, estimated RAP is 20 mmHg. A color flow and spectral Doppler study was performed and revealed: No aortic insufficiency. Trace mitral regurgitation. Mitral diastolic velocities suggest mild left ventricular diastolic dysfunction (Grade I). Trace tricuspid regurgitation. Tricuspid systolic velocities suggests peak right ventricular systolic pressure of 41 mmHg, consistent with mild pulmonary hypertension. Mild pulmonic regurgitation present. Laboratory Tests Test 10/30/18 21:45 10/31/18 05:56 Urine Opiates Screen Negative (NEGATIVE) Urine Barbiturates Screen Negative (NEGATIVE) Phencyclidine (PCP) Screen Negative (NEGATIVE) Urine Amphetamines Screen Negative (NEGATIVE) Urine Benzodiazepines Screen Negative (NEGATIVE) Urine Cocaine Screen Negative (NEGATIVE) Urine Marijuana (THC) Screen Positive (NEGATIVE) H White Blood Count 5.4 K/UL (4.8-10.8) Red Blood Count 3.81 M/UL (4.70-6.10) L Hemoglobin 9.6 G/DL (14.2-18.0) L Hematocrit 31.1 % (42.0-52.0) L Mean Corpuscular Volume 82 FL (80-99) Mean Corpuscular Hemoglobin 25.3 PG (27.0-31.0) L Mean Corpuscular Hemoglobin Concent 31.0 G/DL (32.0-36.0) L Red Cell Distribution Width 14.8 % (11.6-14.8) Platelet Count 203 K/UL (150-450) Mean Platelet Volume 8.2 FL (6.5-10.1) Neutrophils (%) (Auto) 31.7 % (45.0-75.0) L Lymphocytes (%) (Auto) 50.3 % (20.0-45.0) H Monocytes (%) (Auto) 11.0 % (1.0-10.0) H Eosinophils (%) (Auto) 5.4 % (0.0-3.0) H Basophils (%) (Auto) 1.7 % (0.0-2.0) Sodium Level 139 MMOL/L (136-145) Potassium Level 3.9 MMOL/L (3.5-5.1) Chloride Level 104 MMOL/L (98-107) Carbon Dioxide Level 28 MMOL/L (21-32) Anion Gap 7 mmol/L (5-15) Blood Urea Nitrogen 24 mg/dL (7-18) H Creatinine 1.0 MG/DL (0.55-1.30) Estimat Glomerular Filtration Rate > 60 mL/min (>60) Glucose Level 88 MG/DL (74-106) Calcium Level 9.3 MG/DL (8.5-10.1) Pro-B-Type Natriuretic Peptide 163 pg/mL (0-125) H Assessment/Plan ASSESSMENT: The patient is a 63-year-old male, lifelong nonsmoker with a history of congestive heart failure with diastolic dysfunction, pulmonary hypertension, obesity, likely obstructive sleep apnea, known pulmonary nodules, anemia and asthma, presenting with recurrent NELLIE PROBLEM LIST: 1. Asthma without evidence of exacerbation. 2. CHF with diastolic dysfunction, 3. Bilateral lower extremity edema, chronic 4. Known scattered bilateral subcentimeter nodules, stable on follow-up - per patient being followed up by PULMONARY @ [facility] 5. Anemia. 6. Hypertension. 7. Obesity. 8. Likely THERON. TREATMENT PLAN: 1. Optimize pulmonary hygiene/mobilize as tolerated. 2. P.r.n. O2 to keep saturations greater than 90%. 3. RTC and PRN HHN's 4. Advair 250/50 5. Observe off antibiotics and steroids 6. Monitor volumes, diuresis per cards 7. Incentive spirometry 8. Continue to follow up with [facility] Pulmonary Clinic per the patient. 9. DVT prophylaxis, heparin subcutaneous. 10. Weight-loss diet and exercise discussed again. Rashad Haji MD Oct 31, 2018 16:55
[2018-10-31] MEDS ORDERED: Albuterol/Ipratropium 3ml neb HHN PRN (17:00)
--- NOTE | 2018-10-31 19:20 | NUR ---
NURSE NOTES: Received a report from LAKEISHA Trevino. Pt is in stable condition. AAOX4. Able to make needs known. No respiratory distress noted. On room air. IV site is patent and intact. Bed in lowest position. Bed alarm is on. Call light within reach. Will continue to monitor.
--- NOTE | 2018-10-31 19:29 | NUR ---
HAND-OFF: Report given to Michaela SUAZO.
[2018-10-31 20:00] VITALS: BP 121/57
--- NOTE | 2018-10-31 20:00 | NUR ---
NURSE NOTES: Pt shows aggressive behavior by cussing at some other nurses. Pt verbalized anger towards the doctors and nurses. Will continue to monitor.
[2018-10-31] MEDS: Albuterol/Ipratropium 3ml neb HHN SCH (20:48)
[2018-10-31] MEDS: Heparin 5000 units/ml inj SUBQ SCH ×2 (21:00→21:04)
[2018-10-31] MEDS: Depakote ER 250mg tab ORAL SCH ×2 (21:00→21:03)
--- NOTE | 2018-10-31 21:00 | NUR ---
NURSE NOTES: Pt refused Heparin and Depakote despite education provided. Pt stated that he takes his home meds here in the hospital whenever he does not get the meds that he wants. Educated the pt that he cannot take his meds from home. However, pt is non-compliant. Michaela SUAZO, even asked the pt if she can take the meds to the pharmacy for safe keeping. But the pt refused. Charge Nurse Alisha made aware.
--- NOTE | 2018-10-31 21:35 | General Progress Note ---
Assessment/Plan Problem List: (1) Pain ICD Codes: R52 - Pain, unspecified SNOMED: 68378934 (2) CHF exacerbation ICD Codes: I50.9 - Heart failure, unspecified SNOMED: 73541814 (3) CHF (congestive heart failure) ICD Codes: I50.9 - Heart failure, unspecified SNOMED: 92807457 (4) Edema ICD Codes: R60.9 - Edema, unspecified SNOMED: 234779295, 069657927 (5) MDD (major depressive disorder) ICD Codes: F32.9 - Major depressive disorder, single episode, unspecified SNOMED: 715717121 (6) Edema ICD Codes: R60.9 - Edema, unspecified SNOMED: 589855806, 888814973 Qualifiers: Qualified Codes: R60.9 - Edema, unspecified Status: progressing Assessment/Plan noncompliant on meds and diet chronic pain chf severe le edema afebrile Subjective ROS Limited/Unobtainable: Yes Allergies: Coded Allergies: PENICILLINS (Verified Allergy, Unknown, 08/31/17) TRAMADOL (Verified Allergy, Unknown, 08/31/17) Objective Last 24 Hour Vital Signs Date Time Temp Pulse Resp B/P (MAP) Pulse Ox O2 Delivery O2 Flow Rate FiO2 10/31/18 20:59 Room Air 21 10/31/18 20:58 Room Air 21 10/31/18 20:48 77 18 Room Air 21 10/31/18 20:00 99.5 76 18 121/57 (78) 97 10/31/18 16:00 98.2 64 20 117/63 (81) 96 10/31/18 14:32 98.7 10/31/18 12:00 98.7 65 20 127/70 (89) 99 10/31/18 08:31 74 20 Room Air 21 10/31/18 08:00 Room Air 10/31/18 08:00 98.5 73 20 94/65 (75) 98 10/31/18 04:00 97.7 63 20 116/61 (79) 96 10/31/18 00:00 97.9 66 18 126/55 (78) 96 Intake and Output 10/30/18 10/31/18 18:59 06:59 Intake Total 1500 ml Output Total 1000 ml Balance 500 ml Intake Oral 1500 ml Output Urine Total 1000 ml # Voids 2 Laboratory Tests 10/30/18 21:45: Urine Opiates Screen Negative, Urine Barbiturates Screen Negative, Phencyclidine (PCP) Screen Negative, Urine Amphetamines Screen Negative, Urine Benzodiazepines Screen Negative, Urine Cocaine Screen Negative, Urine Marijuana (THC) Screen PositiveH 10/31/18 05:56: White Blood Count 5.4, Red Blood Count 3.81L, Hemoglobin 9.6L, Hematocrit 31.1L , Mean Corpuscular Volume 82, Mean Corpuscular Hemoglobin 25.3L, Mean Corpuscular Hemoglobin Concent 31.0L, Red Cell Distribution Width 14.8, Platelet Count 203, Mean Platelet Volume 8.2, Neutrophils (%) (Auto) 31.7L, Lymphocytes (%) (Auto) 50.3H, Monocytes (%) (Auto) 11.0H, Eosinophils (%) (Auto ) 5.4H, Basophils (%) (Auto) 1.7, Sodium Level 139, Potassium Level 3.9, Chloride Level 104, Carbon Dioxide Level 28, Anion Gap 7, Blood Urea Nitrogen 24H, Creatinine 1.0, Estimat Glomerular Filtration Rate > 60, Glucose Level 88, Calcium Level 9.3, Pro-B-Type Natriuretic Peptide 163H Height (Feet): 6 Height (Inches): 2.00 Weight (Pounds): 201 Cardiovascular: normal rate Respiratory/Chest: lungs clear Abdomen: soft Brittney Shepard MD Oct 31, 2018 21:35
[2018-10-31] MEDS: Wixela 250/50 Inhaler - 60 dose INH SCH (22:00)
[2018-11-01] VITALS: BP 151/76
[2018-11-01] MEDS: HYDROcodone/Acetamin 10/325 tab ORAL PRN ×4 (01:15→19:48)
--- NOTE | 2018-11-01 01:30 | NUR ---
NURSE NOTES: Pt got agitated and cussed at nurses. Charge Nurse Alisha made aware.
--- NOTE | 2018-11-01 01:32 | NUR ---
NURSE NOTES: Pt's IV heplock was accidentally removed by the pt. Michaela RN, Zeke, RN, and Daly RN tried to insert the IV, but unsuccessful. Charge Nurse Alisha made aware.
[2018-11-01 04:00] VITALS: BP 120/54
[2018-11-01] MEDS: Albuterol/Ipratropium 3ml neb HHN SCH ×3 (07:00→19:00)
--- NOTE | 2018-11-01 07:00 | NUR ---
HAND-OFF: Report given to LAKEISHA Trevino.
[2018-11-01 08:00] VITALS: BP 143/64
--- NOTE | 2018-11-01 08:12 | NUR ---
NURSE NOTES: Received patient from Michaela RN, patient is resting in bed comfortable, no distress noted, bed is locked and in lowest position, call light within reach, will continue to monitor.
[2018-11-01] MEDS: Heparin 5000 units/ml inj SUBQ SCH ×2 (09:00→20:30)
[2018-11-01] MEDS: Wixela 250/50 Inhaler - 60 dose INH SCH ×2 (09:11→20:08)
[2018-11-01] MEDS: Aspirin Baby 81mg ORAL SCH (09:27)
[2018-11-01 12:00] VITALS: BP 143/64
--- NOTE | 2018-11-01 13:50 | Nephrology Progress Note ---
Assessment/Plan Problem List: (1) Edema (2) COPD exacerbation (3) Marijuana abuse Assessment HTN Anemia Lower Ext edema Diastolic dysfunction COPD Drug Abuse Non Compliance Plan Lasix Adjust BP Monitor lytes Dc planning Subjective ROS Limited/Unobtainable: No Constitutional: Reports: other - angry ! Objective Objective Last 24 Hour Vital Signs Date Time Temp Pulse Resp B/P (MAP) Pulse Ox O2 Delivery O2 Flow Rate FiO2 11/01/18 12:00 97.9 77 17 143/64 (90) 97 11/01/18 09:12 Room Air 21 11/01/18 09:12 Room Air 21 11/01/18 09:00 Room Air 11/01/18 08:00 99.2 77 18 143/64 (90) 97 11/01/18 07:48 Room Air 21 11/01/18 07:45 Room Air 21 11/01/18 04:00 98.4 61 18 120/54 (76) 93 11/01/18 01:45 99.3 11/01/18 00:00 99.3 70 17 151/76 (101) 97 10/31/18 22:34 Room Air 21 10/31/18 22:34 Room Air 21 10/31/18 21:00 Room Air 10/31/18 20:59 Room Air 21 10/31/18 20:58 Room Air 21 10/31/18 20:48 77 18 Room Air 21 10/31/18 20:00 99.5 76 18 121/57 (78) 97 10/31/18 16:00 98.2 64 20 117/63 (81) 96 Intake and Output 10/31/18 11/01/18 19:00 07:00 Intake Total 960 ml 1200 ml Output Total 1200 ml 2000 ml Balance -240 ml -800 ml Intake Oral 960 ml 1200 ml Output Urine Total 1200 ml 2000 ml Height (Feet): 6 Height (Inches): 2.00 Weight (Pounds): 201 General Appearance: no apparent distress Cardiovascular: regular rhythm Respiratory/Chest: lungs clear Abdomen: soft Extremities: other - edema Jerzy Hardwick MD Nov 01, 2018 13:50
--- NOTE | 2018-11-01 15:45 | NUR ---
TRAFFIC INVESTIGATORSHOP DIRECTOR SI: EDEMA . CELLULITIS VS: BP 143/64, P 99, T 99.0, RR 17, SpO2 96 IS:LIPITOR 10mg LASIX 10mg IV HEPARIN SUBQ ALBUTEROL 3ml N GENACT MED/SURG STATUS
[2018-11-01 16:00] VITALS: BP 132/79
--- NOTE | 2018-11-01 16:37 | Cardiac Electrophysiology PN ---
Assessment/Plan Assessment/Plan 1. Accelerated hypertension. Avoid beta-marlyn in view of cocaine use. On Lasix 10 mg IV bid. Add Lisinopril 10 mg po daily 2. Severe bilateral lower extremity edema. EF 60% with diastolic dysfunction. 3. Morbid obesity. 4. COPD. 5. Asthma, on Advair. 6. Cocaine use 7. Noncompliance 8. Hyperlipidemia. On Zocor 10 Subjective Subjective Upset with RNs and hospital! No CP or SOB Objective Last 24 Hour Vital Signs Date Time Temp Pulse Resp B/P (MAP) Pulse Ox O2 Delivery O2 Flow Rate FiO2 11/01/18 14:48 97.9 11/01/18 13:00 Room Air 21 11/01/18 13:00 Room Air 21 11/01/18 12:00 97.9 77 17 143/64 (90) 97 11/01/18 09:12 Room Air 21 11/01/18 09:12 Room Air 21 11/01/18 09:00 Room Air 11/01/18 08:00 99.2 77 18 143/64 (90) 97 11/01/18 07:48 Room Air 21 11/01/18 07:45 Room Air 21 11/01/18 04:00 98.4 61 18 120/54 (76) 93 11/01/18 00:00 99.3 70 17 151/76 (101) 97 10/31/18 22:34 Room Air 21 10/31/18 22:34 Room Air 21 10/31/18 21:00 Room Air 10/31/18 20:59 Room Air 21 10/31/18 20:58 Room Air 21 10/31/18 20:48 77 18 Room Air 21 10/31/18 20:00 99.5 76 18 121/57 (78) 97 Intake and Output 10/31/18 11/01/18 19:00 07:00 Intake Total 960 ml 1200 ml Output Total 1200 ml 2000 ml Balance -240 ml -800 ml Intake Oral 960 ml 1200 ml Output Urine Total 1200 ml 2000 ml Objective HEAD AND NECK: No JVD LUNGS: Clear. CARDIOVASCULAR: Regular S1 and S2 with no gallop or murmur. ABDOMEN: Soft. EXTREMITIES: 2+ pitting edema. Prosper Crum MD Nov 01, 2018 16:37
--- NOTE | 2018-11-01 17:47 | Pulmonology Progress Note ---
Assessment/Plan Assessment/Plan PROBLEM LIST: 1. Asthma without evidence of exacerbation. 2. CHF with diastolic dysfunction, 3. Bilateral lower extremity edema, chronic 4. Known scattered bilateral subcentimeter nodules, stable on follow-up - per patient being followed up by PULMONARY @ [facility] 5. Anemia. 6. Hypertension. 7. Obesity. 8. Likely THERON. TREATMENT PLAN: 1. Optimize pulmonary hygiene/mobilize as tolerated. 2. P.r.n. O2 to keep saturations greater than 90%. 3. RTC and PRN HHN's 4. Advair 250/50 5. Observe off antibiotics and steroids 6. Monitor volumes, diuresis per cards 7. Incentive spirometry 8. Continue to follow up with [facility] Pulmonary Clinic per the patient. 9. DVT prophylaxis, heparin subcutaneous. 10. Weight-loss diet and exercise discussed again. Subjective ROS Limited/Unobtainable: Yes Allergies: Coded Allergies: PENICILLINS (Verified Allergy, Unknown, 08/31/17) TRAMADOL (Verified Allergy, Unknown, 08/31/17) Subjective pt very upset no cp toelrating po not getting oob Objective Last 24 Hour Vital Signs Date Time Temp Pulse Resp B/P (MAP) Pulse Ox O2 Delivery O2 Flow Rate FiO2 11/01/18 16:00 98.6 99 19 132/79 (96) 96 11/01/18 14:48 97.9 11/01/18 13:00 Room Air 21 11/01/18 13:00 Room Air 21 11/01/18 12:00 97.9 77 17 143/64 (90) 97 11/01/18 09:12 Room Air 21 11/01/18 09:12 Room Air 21 11/01/18 09:00 Room Air 11/01/18 08:00 99.2 77 18 143/64 (90) 97 11/01/18 07:48 Room Air 21 11/01/18 07:45 Room Air 21 11/01/18 04:00 98.4 61 18 120/54 (76) 93 11/01/18 00:00 99.3 70 17 151/76 (101) 97 10/31/18 22:34 Room Air 21 10/31/18 22:34 Room Air 21 10/31/18 21:00 Room Air 10/31/18 20:59 Room Air 21 10/31/18 20:58 Room Air 21 10/31/18 20:48 77 18 Room Air 21 10/31/18 20:00 99.5 76 18 121/57 (78) 97 Intake and Output 10/31/18 11/01/18 19:00 07:00 Intake Total 960 ml 1200 ml Output Total 1200 ml 2000 ml Balance -240 ml -800 ml Intake Oral 960 ml 1200 ml Output Urine Total 1200 ml 2000 ml General Appearance: WD/WN Respiratory/Chest: rhonchi Cardiovascular: normal rate, regular rhythm Abdomen: non distended Skin: no rash Neurologic/Psychiatric: responsive Current Medications Medications (Trade) Dose Ordered Sig/Virgen Route PRN Reason Start Time Stop Time Status Last Admin Dose Admin Acetaminophen/ Hydrocodone Bitart ([place] 10/325) 1 tab Q4H PRN ORAL For Pain 10/30/18 21:45 11/06/18 21:44 11/01/18 14:18 Albuterol/ Ipratropium (Albuterol/ Ipratropium) 3 ml Q4H PRN HHN Shortness of Breath 10/31/18 17:00 11/05/18 16:59 Albuterol/ Ipratropium (Albuterol/ Ipratropium) 3 ml TIDRT HHN 10/31/18 19:00 11/05/18 18:59 Aspirin (ASA) 81 mg DAILY ORAL 10/31/18 09:00 11/30/18 08:59 11/01/18 09:27 Atorvastatin Calcium (Lipitor) 10 mg BEDTIME ORAL 11/01/18 21:00 12/01/18 20:59 Furosemide (Lasix) 10 mg EVERY 12 HOURS IV 10/31/18 21:00 11/30/18 20:59 11/01/18 09:28 Heparin Sodium (Porcine) (Heparin 5000 units/ml) 5,000 units EVERY 12 HOURS SUBQ 10/31/18 21:00 11/30/18 20:59 Lisinopril (Zestril) 10 mg DAILY ORAL 11/02/18 09:00 12/02/18 08:59 Montelukast Sodium (Singulair) 10 mg QPM ORAL 11/02/18 16:30 12/02/18 16:29 Salmeterol Xinafoate/ Fluticasone (Advair 250/50 Diskus) 1 puffs BIDRT INH 10/31/18 22:00 4/14/19 21:59 Denita Hart DO Nov 01, 2018 17:47
--- NOTE | 2018-11-01 19:31 | NUR ---
HAND-OFF: Report given to Dominique SUAZO.
[2018-11-01 20:00] VITALS: BP 137/61
--- NOTE | 2018-11-01 20:00 | NUR ---
NURSE NOTES: Received patient awake,alert,verbal,aggressive,complained of pain on his lower extremities,subsequently given pain medication as ordered.
--- NOTE | 2018-11-01 20:30 | General Progress Note ---
Assessment/Plan Problem List: (1) Pain ICD Codes: R52 - Pain, unspecified SNOMED: 07397578 (2) CHF exacerbation ICD Codes: I50.9 - Heart failure, unspecified SNOMED: 54273335 (3) CHF (congestive heart failure) ICD Codes: I50.9 - Heart failure, unspecified SNOMED: 10229925 (4) Edema ICD Codes: R60.9 - Edema, unspecified SNOMED: 831921370, 070438622 (5) MDD (major depressive disorder) ICD Codes: F32.9 - Major depressive disorder, single episode, unspecified SNOMED: 073015572 (6) Edema ICD Codes: R60.9 - Edema, unspecified SNOMED: 089631971, 667157438 Qualifiers: Qualified Codes: R60.9 - Edema, unspecified Assessment/Plan noncompliant on meds and diet chronic pain chf severe le edema afebrile lasix per cardiology and renal noncompliant w lasix wants to take minimal dose of lasix Subjective ROS Limited/Unobtainable: Yes Allergies: Coded Allergies: PENICILLINS (Verified Allergy, Unknown, 08/31/17) TRAMADOL (Verified Allergy, Unknown, 08/31/17) Objective Last 24 Hour Vital Signs Date Time Temp Pulse Resp B/P (MAP) Pulse Ox O2 Delivery O2 Flow Rate FiO2 11/01/18 20:28 98.6 11/01/18 20:07 Room Air 11/01/18 20:07 Room Air 11/01/18 20:06 Room Air 11/01/18 20:06 Room Air 11/01/18 16:00 98.6 99 19 132/79 (96) 96 11/01/18 13:00 Room Air 21 11/01/18 13:00 Room Air 21 11/01/18 12:00 97.9 77 17 143/64 (90) 97 11/01/18 09:12 Room Air 21 11/01/18 09:12 Room Air 21 11/01/18 09:00 Room Air 11/01/18 08:00 99.2 77 18 143/64 (90) 97 11/01/18 07:48 Room Air 21 11/01/18 07:45 Room Air 21 11/01/18 04:00 98.4 61 18 120/54 (76) 93 11/01/18 00:00 99.3 70 17 151/76 (101) 97 10/31/18 22:34 Room Air 21 10/31/18 22:34 Room Air 21 10/31/18 21:00 Room Air 10/31/18 20:59 Room Air 21 10/31/18 20:58 Room Air 21 10/31/18 20:48 77 18 Room Air 21 Intake and Output 10/31/18 11/01/18 19:00 07:00 Intake Total 960 ml 1200 ml Output Total 1200 ml 2000 ml Balance -240 ml -800 ml Intake Oral 960 ml 1200 ml Output Urine Total 1200 ml 2000 ml Height (Feet): 6 Height (Inches): 2.00 Weight (Pounds): 201 Cardiovascular: normal rate Respiratory/Chest: lungs clear Abdomen: soft Brittney Shepard MD Nov 01, 2018 20:30
[2018-11-02] VITALS: BP 125/56
[2018-11-02] MEDS: HYDROcodone/Acetamin 10/325 tab ORAL PRN ×6 (01:11→21:29)
[2018-11-02 04:00] VITALS: BP 138/71
[2018-11-02] MEDS: Albuterol/Ipratropium 3ml neb HHN SCH ×3 (07:00→21:18)
--- NOTE | 2018-11-02 07:10 | NUR ---
HAND-OFF: Report given to Antonio Ulloa RN.
[2018-11-02 07:58] VITALS: BP 134/68
[2018-11-02] MEDS: Wixela 250/50 Inhaler - 60 dose INH SCH ×3 (08:00→21:55)
[2018-11-02] MEDS: Heparin 5000 units/ml inj SUBQ SCH ×2 (08:33→21:00)
[2018-11-02] MEDS: Aspirin Baby 81mg ORAL SCH (08:33)
--- NOTE | 2018-11-02 08:33 | NUR ---
NURSE NOTES: pt prefers benazepril as opposed to lisinopril, will notify Addendum: 11/02/18 at 0950 by HIGINIO ROMERO RN Dr Crum agreed to change bp , lisinopril dc'd and changed to benazepril 10mg po qd
--- NOTE | 2018-11-02 08:53 | NUR ---
NURSE NOTES: pt awake alert, no distress. no c/o pain. call light within reach. will monitor. bed in lowest position, locked.
[2018-11-02] MEDS ORDERED: Lisinopril 10mg tab ORAL SCH (09:00)
[2018-11-02 12:41] VITALS: BP 116/68
[2018-11-02] MEDS: Spironolactone 25mg tab ORAL SCH (13:09)
--- NOTE | 2018-11-02 15:51 | NUR ---
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
[2018-11-02 16:00] VITALS: BP 115/61
--- NOTE | 2018-11-02 16:59 | Nephrology Progress Note ---
Assessment/Plan Problem List: (1) Edema (2) COPD exacerbation (3) Marijuana abuse Assessment HTN Anemia Lower Ext edema Diastolic dysfunction COPD Drug Abuse Non Compliance Plan Lasix Adjust BP Monitor lytes Alirio planning Subjective ROS Limited/Unobtainable: No Objective Objective Last 24 Hour Vital Signs Date Time Temp Pulse Resp B/P (MAP) Pulse Ox O2 Delivery O2 Flow Rate FiO2 11/02/18 13:39 98.6 11/02/18 13:01 Room Air 11/02/18 13:01 Room Air 11/02/18 12:41 98.6 65 17 116/68 (84) 98 11/02/18 10:11 134/68 11/02/18 08:33 134/68 11/02/18 08:03 Room Air 11/02/18 07:59 Room Air 21 11/02/18 07:59 Room Air 21 11/02/18 07:59 Room Air 11/02/18 07:59 Room Air 11/02/18 07:58 98.6 65 17 134/68 (90) 98 11/02/18 04:00 98.6 63 17 138/71 (93) 98 11/02/18 00:00 98.6 70 18 125/56 (79) 98 11/01/18 21:00 Room Air 11/01/18 20:07 Room Air 11/01/18 20:07 Room Air 11/01/18 20:06 Room Air 11/01/18 20:06 Room Air 11/01/18 20:00 99.0 66 17 137/61 (86) 97 Intake and Output 11/01/18 11/02/18 19:00 07:00 Intake Total 3760 ml Output Total 2100 ml Balance 1660 ml Intake Oral 2560 ml Other 1200 ml Output Urine Total 2100 ml Height (Feet): 6 Height (Inches): 2.00 Weight (Pounds): 201 General Appearance: no apparent distress Extremities: other - LE edematous Objective no change Jerzy Hardwick MD Nov 02, 2018 16:59
[2018-11-02] MEDS: Montelukast 10mg tablet ORAL SCH (17:07)
--- NOTE | 2018-11-02 18:29 | NUR ---
HAND-OFF: Report given to RIKA SUAZO.
--- NOTE | 2018-11-02 19:55 | NUR ---
NURSE NOTES: patient in bed, awake, alert and verbally responsive. Able to make needs known. Respiration is even and unlabored. Complained of pain 7/10, patient is aware, his pain medication is not due yet. Skin is warm and to touch. IV site is noted. Call light is at bedside. Will continue plan of care.
[2018-11-02 19:56] VITALS: BP 133/67
--- NOTE | 2018-11-02 21:41 | General Progress Note ---
Assessment/Plan Problem List: (1) Pain ICD Codes: R52 - Pain, unspecified SNOMED: 63191626 (2) CHF exacerbation ICD Codes: I50.9 - Heart failure, unspecified SNOMED: 09283073 (3) CHF (congestive heart failure) ICD Codes: I50.9 - Heart failure, unspecified SNOMED: 47159449 (4) Edema ICD Codes: R60.9 - Edema, unspecified SNOMED: 613614044, 687334336 (5) MDD (major depressive disorder) ICD Codes: F32.9 - Major depressive disorder, single episode, unspecified SNOMED: 300280361 (6) Edema ICD Codes: R60.9 - Edema, unspecified SNOMED: 306466074, 432697841 Qualifiers: Qualified Codes: R60.9 - Edema, unspecified Status: progressing Assessment/Plan noncompliant on meds and diet chronic pain chf severe le edema lasix per cardiology and renal noncompliant w lasix addred spirnolactone afebrile Subjective ROS Limited/Unobtainable: Yes Allergies: Coded Allergies: PENICILLINS (Verified Allergy, Unknown, 08/31/17) TRAMADOL (Verified Allergy, Unknown, 08/31/17) Objective Last 24 Hour Vital Signs Date Time Temp Pulse Resp B/P (MAP) Pulse Ox O2 Delivery O2 Flow Rate FiO2 11/02/18 20:10 Room Air 11/02/18 19:56 98.1 70 18 133/67 (89) 96 11/02/18 17:46 98.6 11/02/18 16:00 98.6 64 17 115/61 (79) 98 11/02/18 13:01 Room Air 11/02/18 13:01 Room Air 11/02/18 12:41 98.6 65 17 116/68 (84) 98 11/02/18 10:11 134/68 11/02/18 08:33 134/68 11/02/18 08:03 Room Air 11/02/18 07:59 Room Air 21 11/02/18 07:59 Room Air 21 11/02/18 07:59 Room Air 11/02/18 07:59 Room Air 11/02/18 07:58 98.6 65 17 134/68 (90) 98 11/02/18 04:00 98.6 63 17 138/71 (93) 98 11/02/18 00:00 98.6 70 18 125/56 (79) 98 Intake and Output 11/01/18 11/02/18 19:00 07:00 Intake Total 3760 ml Output Total 2100 ml Balance 1660 ml Intake Oral 2560 ml Other 1200 ml Output Urine Total 2100 ml Height (Feet): 6 Height (Inches): 2.00 Weight (Pounds): 201 Neck: supple Cardiovascular: normal rate Abdomen: soft Edema: severe edema Brittney Shepard MD Nov 02, 2018 21:41
[2018-11-03] VITALS: BP 130/69
[2018-11-03] MEDS: HYDROcodone/Acetamin 10/325 tab ORAL PRN ×5 (01:53→20:38)
[2018-11-03 04:00] VITALS: BP 129/76
--- NOTE | 2018-11-03 06:00 | NUR ---
NURSE NOTES: patient in pain 7/10. Given PRN pain medication as ordered. Call light is at bedside. Will continue plan of care.
[2018-11-03 06:36] LABS: HEMOGLOBIN 10.6 G/DL (14.2-18.0); MEAN CORPUSCULAR VOLUME 83 FL (80-99); PLATELET COUNT 214 K/UL (150-450); RED BLOOD COUNT 4.12 M/UL (4.70-6.10); RED CELL DISTRIBUTION WIDTH 14.8 % (11.6-14.8); WHITE BLOOD COUNT 5.7 K/UL (4.8-10.8)
--- NOTE | 2018-11-03 06:57 | NUR ---
HAND-OFF: Report given to LAKEISHA Velasco.
[2018-11-03] MEDS: Albuterol/Ipratropium 3ml neb HHN SCH ×3 (07:00→19:52)
[2018-11-03] MEDS: Wixela 250/50 Inhaler - 60 dose INH SCH (07:03)
[2018-11-03 07:06] LABS: ALANINE AMINOTRANSFERASE 21 U/L (12-78); ALBUMIN 2.9 G/DL (3.4-5.0); ALBUMIN/GLOBULIN RATIO 0.6 (1.0-2.7); ALKALINE PHOSPHATASE 67 U/L (46-116); ANION GAP 8 mmol/L (5-15); ASPARTATE AMINO TRANSFERASE 15 U/L (15-37); BILIRUBIN,TOTAL 0.2 MG/DL (0.2-1.0); BLOOD UREA NITROGEN 22 mg/dL (7-18); CALCIUM 9.5 MG/DL (8.5-10.1); CARBON DIOXIDE 29 MMOL/L (21-32); CHLORIDE 102 MMOL/L (98-107); CREATININE 0.9 MG/DL (0.55-1.30); PHOSPHORUS 3.8 MG/DL (2.5-4.9); POTASSIUM 4.3 MMOL/L (3.5-5.1); SODIUM 139 MMOL/L (136-145)
--- NOTE | 2018-11-03 07:36 | NUR ---
NURSE NOTES: pt in bed with no sob nor in any form of distress noted. denies any pain at this time. will continue to monitor
[2018-11-03 08:00] VITALS: BP 128/58
[2018-11-03] MEDS: Aspirin Baby 81mg ORAL SCH (08:55)
[2018-11-03] MEDS: Spironolactone 25mg tab ORAL SCH (08:55)
[2018-11-03] MEDS: Heparin 5000 units/ml inj SUBQ SCH ×2 (08:56→20:29)
--- NOTE | 2018-11-03 09:25 | Pulmonology Progress Note ---
Assessment/Plan Assessment/Plan ASSESSMENT: The patient is a 63-year-old male, lifelong nonsmoker with a history of congestive heart failure with diastolic dysfunction, pulmonary hypertension, obesity, likely obstructive sleep apnea, known pulmonary nodules, anemia and asthma, presenting with recurrent NELLIE PROBLEM LIST: 1. Asthma without evidence of exacerbation. 2. CHF with diastolic dysfunction, 3. Bilateral lower extremity edema, chronic 4. Known scattered bilateral subcentimeter nodules, stable on follow-up - per patient being followed up by PULMONARY @ [facility] 5. Anemia. 6. Hypertension. 7. Obesity. 8. Likely THERON. TREATMENT PLAN: 1. Optimize pulmonary hygiene/mobilize as tolerated. 2. P.r.n. O2 to keep saturations greater than 90%. 3. RTC and PRN HHN's 4. Advair 250/50 5. Observe off antibiotics and steroids 6. Monitor volumes, diuresis per cards 7. Incentive spirometry 8. Continue to follow up with [facility] Pulmonary Clinic per the patient. 9. DVT prophylaxis, heparin subcutaneous. 10. Weight-loss diet and exercise discussed again. 11. Consider VASCULAR SURGERY evaluation for unexplained NELLIE Subjective Allergies: Coded Allergies: PENICILLINS (Verified Allergy, Unknown, 08/31/17) TRAMADOL (Verified Allergy, Unknown, 08/31/17) Subjective AFVSS on RA better less edema no cough no SOB no wheezing Upset about multiple issues with staff Objective Last 24 Hour Vital Signs Date Time Temp Pulse Resp B/P (MAP) Pulse Ox O2 Delivery O2 Flow Rate FiO2 11/03/18 08:55 128/58 11/03/18 08:00 97.9 61 20 128/58 (81) 97 11/03/18 07:02 Room Air 11/03/18 07:02 Room Air 11/03/18 07:02 Room Air 21 11/03/18 07:02 Room Air 11/03/18 04:00 98.3 78 20 129/76 (93) 99 11/03/18 00:00 98.5 70 18 130/69 (89) 98 11/02/18 21:20 Room Air 11/02/18 21:18 Room Air 21 11/02/18 21:18 Room Air 11/02/18 21:18 Room Air 21 11/02/18 20:10 Room Air 11/02/18 19:56 98.1 70 18 133/67 (89) 96 11/02/18 17:46 98.6 11/02/18 16:00 98.6 64 17 115/61 (79) 98 11/02/18 13:01 Room Air 11/02/18 13:01 Room Air 11/02/18 12:41 98.6 65 17 116/68 (84) 98 11/02/18 10:11 134/68 Intake and Output 11/02/18 11/03/18 19:00 07:00 Intake Total 1000 ml 2500 ml Output Total 2000 ml 1800 ml Balance -1000 ml 700 ml Intake Oral 1000 ml 2500 ml Output Urine Total 2000 ml 1800 ml General Appearance: WD/WN, no acute distress HEENT: normocephalic, atraumatic, anicteric, mucous membranes moist Respiratory/Chest: chest wall non-tender, lungs clear, normal breath sounds, no respiratory distress, no accessory muscle use Cardiovascular: normal peripheral pulses, normal rate, regular rhythm Abdomen: normal bowel sounds, soft, non tender, no organomegaly, non distended , no mass Extremities: no cyanosis, no clubbing, other - 1+ NELLIE Laboratory Tests 11/03/18 06:00: White Blood Count 5.7, Red Blood Count 4.12L, Hemoglobin 10.6L, Hematocrit 34.0L , Mean Corpuscular Volume 83, Mean Corpuscular Hemoglobin 25.7L, Mean Corpuscular Hemoglobin Concent 31.1L, Red Cell Distribution Width 14.8, Platelet Count 214, Mean Platelet Volume 7.3, Neutrophils (%) (Auto) , Lymphocytes (%) (Auto) , Monocytes (%) (Auto) , Eosinophils (%) (Auto) , Basophils (%) (Auto) , Differential Total Cells Counted 100, Neutrophils % ( Manual) 25L, Lymphocytes % (Manual) 54H, Monocytes % (Manual) 15H, Eosinophils % (Manual) 6H, Basophils % (Manual) 0, Band Neutrophils 0, Platelet Estimate Adequate, Platelet Morphology Normal, Hypochromasia 1+, Anisocytosis 1+, Sodium Level 139, Potassium Level 4.3, Chloride Level 102, Carbon Dioxide Level 29, Anion Gap 8, Blood Urea Nitrogen 22H, Creatinine 0.9, Estimat Glomerular Filtration Rate > 60, Glucose Level 95, Uric Acid 5.2, Calcium Level 9.5, Phosphorus Level 3.8, Magnesium Level 1.7L, Total Bilirubin 0.2, Aspartate Amino Transf (AST/SGOT) 15, Alanine Aminotransferase (ALT/SGPT) 21, Alkaline Phosphatase 67, Pro-B-Type Natriuretic Peptide 109, Total Protein 7.5, Albumin 2.9L, Globulin 4.6, Albumin/Globulin Ratio 0.6L Current Medications Medications (Trade) Dose Ordered Sig/Virgen Route PRN Reason Start Time Stop Time Status Last Admin Dose Admin Acetaminophen/ Hydrocodone Bitart ([place] 10/325) 1 tab Q4H PRN ORAL For Pain 10/30/18 21:45 11/06/18 21:44 11/03/18 05:43 Albuterol/ Ipratropium (Albuterol/ Ipratropium) 3 ml Q4H PRN HHN Shortness of Breath 10/31/18 17:00 11/05/18 16:59 Albuterol/ Ipratropium (Albuterol/ Ipratropium) 3 ml TIDRT HHN 10/31/18 19:00 11/05/18 18:59 Aspirin (ASA) 81 mg DAILY ORAL 10/31/18 09:00 11/30/18 08:59 11/03/18 08:55 Atorvastatin Calcium (Lipitor) 10 mg BEDTIME ORAL 11/01/18 21:00 12/01/18 20:59 11/02/18 21:00 Benazepril HCl (Lotensin) 10 mg DAILY ORAL 11/02/18 10:00 12/02/18 09:59 11/03/18 08:55 Furosemide (Lasix) 10 mg EVERY 12 HOURS IV 10/31/18 21:00 11/30/18 20:59 11/03/18 08:55 Heparin Sodium (Porcine) (Heparin 5000 units/ml) 5,000 units EVERY 12 HOURS SUBQ 10/31/18 21:00 11/30/18 20:59 Montelukast Sodium (Singulair) 10 mg QPM ORAL 11/02/18 16:30 12/02/18 16:29 11/02/18 17:07 Salmeterol Xinafoate/ Fluticasone (Advair 250/50 Diskus) 1 puffs BIDRT INH 10/31/18 22:00 11/30/18 21:59 Spironolactone (Aldactone) 25 mg DAILY ORAL 11/02/18 13:00 12/02/18 12:59 11/03/18 08:55 Rashad Haji MD Nov 03, 2018 09:25
[2018-11-03 12:00] VITALS: BP 132/65
--- NOTE | 2018-11-03 13:45 | Cardiac Electrophysiology PN ---
Assessment/Plan Assessment/Plan 1. Accelerated hypertension. Avoid beta-marlyn in view of cocaine use. On Lasix 10 mg IV bid, aldactone and Lisinopril 10 mg po daily 2. Severe bilateral lower extremity edema. EF 60% with diastolic dysfunction. 3. Morbid obesity. 4. COPD. 5. Asthma, on Advair. 6. Cocaine use 7. Noncompliance 8. Hyperlipidemia. On Zocor 10 Subjective Subjective No CP or SOB. diuresing well. Objective Last 24 Hour Vital Signs Date Time Temp Pulse Resp B/P (MAP) Pulse Ox O2 Delivery O2 Flow Rate FiO2 11/03/18 13:04 Room Air 11/03/18 13:04 Room Air 11/03/18 12:00 98.7 69 20 132/65 (87) 97 11/03/18 10:24 97.9 11/03/18 09:00 Room Air 11/03/18 08:55 128/58 11/03/18 08:00 97.9 61 20 128/58 (81) 97 11/03/18 07:02 Room Air 21 11/03/18 07:02 Room Air 11/03/18 07:02 Room Air 21 11/03/18 07:02 Room Air 11/03/18 04:00 98.3 78 20 129/76 (93) 99 11/03/18 00:00 98.5 70 18 130/69 (89) 98 11/02/18 21:20 Room Air 11/02/18 21:18 Room Air 21 11/02/18 21:18 Room Air 11/02/18 21:18 Room Air 21 11/02/18 20:10 Room Air 11/02/18 19:56 98.1 70 18 133/67 (89) 96 11/02/18 16:00 98.6 64 17 115/61 (79) 98 Intake and Output 11/02/18 11/03/18 19:00 07:00 Intake Total 1000 ml 2500 ml Output Total 2000 ml 1800 ml Balance -1000 ml 700 ml Intake Oral 1000 ml 2500 ml Output Urine Total 2000 ml 1800 ml Laboratory Tests Test 11/03/18 06:00 White Blood Count 5.7 K/UL (4.8-10.8) Red Blood Count 4.12 M/UL (4.70-6.10) L Hemoglobin 10.6 G/DL (14.2-18.0) L Hematocrit 34.0 % (42.0-52.0) L Mean Corpuscular Volume 83 FL (80-99) Mean Corpuscular Hemoglobin 25.7 PG (27.0-31.0) L Mean Corpuscular Hemoglobin Concent 31.1 G/DL (32.0-36.0) L Red Cell Distribution Width 14.8 % (11.6-14.8) Platelet Count 214 K/UL (150-450) Mean Platelet Volume 7.3 FL (6.5-10.1) Neutrophils (%) (Auto) % (45.0-75.0) Lymphocytes (%) (Auto) % (20.0-45.0) Monocytes (%) (Auto) % (1.0-10.0) Eosinophils (%) (Auto) % (0.0-3.0) Basophils (%) (Auto) % (0.0-2.0) Differential Total Cells Counted 100 Neutrophils % (Manual) 25 % (45-75) L Lymphocytes % (Manual) 54 % (20-45) H Monocytes % (Manual) 15 % (1-10) H Eosinophils % (Manual) 6 % (0-3) H Basophils % (Manual) 0 % (0-2) Band Neutrophils 0 % (0-8) Platelet Estimate Adequate Platelet Morphology Normal Hypochromasia 1+ Anisocytosis 1+ Sodium Level 139 MMOL/L (136-145) Potassium Level 4.3 MMOL/L (3.5-5.1) Chloride Level 102 MMOL/L (98-107) Carbon Dioxide Level 29 MMOL/L (21-32) Anion Gap 8 mmol/L (5-15) Blood Urea Nitrogen 22 mg/dL (7-18) H Creatinine 0.9 MG/DL (0.55-1.30) Estimat Glomerular Filtration Rate > 60 mL/min (>60) Glucose Level 95 MG/DL (74-106) Uric Acid 5.2 MG/DL (2.6-7.2) Calcium Level 9.5 MG/DL (8.5-10.1) Phosphorus Level 3.8 MG/DL (2.5-4.9) Magnesium Level 1.7 MG/DL (1.8-2.4) L Total Bilirubin 0.2 MG/DL (0.2-1.0) Aspartate Amino Transf (AST/SGOT) 15 U/L (15-37) Alanine Aminotransferase (ALT/SGPT) 21 U/L (12-78) Alkaline Phosphatase 67 U/L (46-116) Pro-B-Type Natriuretic Peptide 109 pg/mL (0-125) Total Protein 7.5 G/DL (6.4-8.2) Albumin 2.9 G/DL (3.4-5.0) L Globulin 4.6 g/dL Albumin/Globulin Ratio 0.6 (1.0-2.7) L Objective HEAD AND NECK: No JVD LUNGS: Clear. CARDIOVASCULAR: Regular S1 and S2 with no gallop or murmur. ABDOMEN: Soft. EXTREMITIES: 2+ pitting edema. Prosper Crum MD Nov 03, 2018 13:45
--- NOTE | 2018-11-03 15:54 | NUR ---
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 CELLULITIS VS: BP 130/69, P 70, T 98.3, RR 20, SpO2 99 WBC 4.12, RBC 10.6, Hct 34.0, Hgb 10.9, BUN 22 IS:LIPITOR 10mg LASIX 10mg IV NORCO 10/325 LOTENSIN 10mg ALDACTONE 25mG MED/SURG STATUS
[2018-11-03 16:00] VITALS: BP 129/62
--- NOTE | 2018-11-03 16:13 | Nephrology Progress Note ---
Assessment/Plan Problem List: (1) Edema (2) COPD exacerbation (3) Marijuana abuse Assessment HTN Anemia Lower Ext edema Diastolic dysfunction COPD Drug Abuse Non Compliance Plan Lasix Adjust BP Monitor lytes Dc planning Subjective ROS Limited/Unobtainable: No Objective Objective Last 24 Hour Vital Signs Date Time Temp Pulse Resp B/P (MAP) Pulse Ox O2 Delivery O2 Flow Rate FiO2 11/03/18 15:53 98.7 11/03/18 13:04 Room Air 11/03/18 13:04 Room Air 11/03/18 12:00 98.7 69 20 132/65 (87) 97 11/03/18 09:00 Room Air 11/03/18 08:55 128/58 11/03/18 08:00 97.9 61 20 128/58 (81) 97 11/03/18 07:02 Room Air 21 11/03/18 07:02 Room Air 11/03/18 07:02 Room Air 21 11/03/18 07:02 Room Air 11/03/18 04:00 98.3 78 20 129/76 (93) 99 11/03/18 00:00 98.5 70 18 130/69 (89) 98 11/02/18 21:20 Room Air 11/02/18 21:18 Room Air 21 11/02/18 21:18 Room Air 11/02/18 21:18 Room Air 21 11/02/18 20:10 Room Air 11/02/18 19:56 98.1 70 18 133/67 (89) 96 Intake and Output 11/02/18 11/03/18 19:00 07:00 Intake Total 1000 ml 2500 ml Output Total 2000 ml 1800 ml Balance -1000 ml 700 ml Intake Oral 1000 ml 2500 ml Output Urine Total 2000 ml 1800 ml Laboratory Tests 11/03/18 06:00: White Blood Count 5.7, Red Blood Count 4.12L, Hemoglobin 10.6L, Hematocrit 34.0L , Mean Corpuscular Volume 83, Mean Corpuscular Hemoglobin 25.7L, Mean Corpuscular Hemoglobin Concent 31.1L, Red Cell Distribution Width 14.8, Platelet Count 214, Mean Platelet Volume 7.3, Neutrophils (%) (Auto) , Lymphocytes (%) (Auto) , Monocytes (%) (Auto) , Eosinophils (%) (Auto) , Basophils (%) (Auto) , Differential Total Cells Counted 100, Neutrophils % ( Manual) 25L, Lymphocytes % (Manual) 54H, Monocytes % (Manual) 15H, Eosinophils % (Manual) 6H, Basophils % (Manual) 0, Band Neutrophils 0, Platelet Estimate Adequate, Platelet Morphology Normal, Hypochromasia 1+, Anisocytosis 1+, Sodium Level 139, Potassium Level 4.3, Chloride Level 102, Carbon Dioxide Level 29, Anion Gap 8, Blood Urea Nitrogen 22H, Creatinine 0.9, Estimat Glomerular Filtration Rate > 60, Glucose Level 95, Uric Acid 5.2, Calcium Level 9.5, Phosphorus Level 3.8, Magnesium Level 1.7L, Total Bilirubin 0.2, Aspartate Amino Transf (AST/SGOT) 15, Alanine Aminotransferase (ALT/SGPT) 21, Alkaline Phosphatase 67, Pro-B-Type Natriuretic Peptide 109, Total Protein 7.5, Albumin 2.9L, Globulin 4.6, Albumin/Globulin Ratio 0.6L Height (Feet): 6 Height (Inches): 2.00 Weight (Pounds): 201 General Appearance: no apparent distress Objective no change Jerzy Hardwick MD Nov 03, 2018 16:13
[2018-11-03] MEDS: Montelukast 10mg tablet ORAL SCH (17:09)
--- NOTE | 2018-11-03 19:23 | NUR ---
HAND-OFF: Report given to LAKEISHA Anne.
[2018-11-03 20:00] VITALS: BP 109/67
--- NOTE | 2018-11-03 20:00 | NUR ---
NURSE NOTES: Received report from Svetlana Lopez RN. Patient A&Ox4. On room air. Iv intact, patent, and saline locked. Bed in lowest position with call light in reach. Will continue with plan of care.
--- NOTE | 2018-11-03 21:54 | General Progress Note ---
Assessment/Plan Problem List: (1) Pain ICD Codes: R52 - Pain, unspecified SNOMED: 99322252 (2) CHF exacerbation ICD Codes: I50.9 - Heart failure, unspecified SNOMED: 19543776 (3) CHF (congestive heart failure) ICD Codes: I50.9 - Heart failure, unspecified SNOMED: 13827377 (4) Edema ICD Codes: R60.9 - Edema, unspecified SNOMED: 184488796, 698685786 (5) MDD (major depressive disorder) ICD Codes: F32.9 - Major depressive disorder, single episode, unspecified SNOMED: 140223519 (6) Edema ICD Codes: R60.9 - Edema, unspecified SNOMED: 930948221, 852522458 Qualifiers: Qualified Codes: R60.9 - Edema, unspecified Status: progressing Assessment/Plan dc planning reviewed chart and labs no wheezing chronic pain chf severe le edema lasix per cardiology and renal Subjective ROS Limited/Unobtainable: Yes Allergies: Coded Allergies: PENICILLINS (Verified Allergy, Unknown, 08/31/17) TRAMADOL (Verified Allergy, Unknown, 08/31/17) Objective Last 24 Hour Vital Signs Date Time Temp Pulse Resp B/P (MAP) Pulse Ox O2 Delivery O2 Flow Rate FiO2 11/03/18 19:52 Room Air 11/03/18 19:52 Room Air 11/03/18 19:52 Room Air 21 11/03/18 19:50 Room Air 21 11/03/18 16:00 98.4 65 20 129/62 (84) 98 11/03/18 15:53 98.7 11/03/18 13:04 Room Air 11/03/18 13:04 Room Air 11/03/18 12:00 98.7 69 20 132/65 (87) 97 11/03/18 09:00 Room Air 11/03/18 08:55 128/58 11/03/18 08:00 97.9 61 20 128/58 (81) 97 11/03/18 07:02 Room Air 11/03/18 07:02 Room Air 11/03/18 07:02 Room Air 21 11/03/18 07:02 Room Air 11/03/18 04:00 98.3 78 20 129/76 (93) 99 11/03/18 00:00 98.5 70 18 130/69 (89) 98 Intake and Output 11/02/18 11/03/18 19:00 07:00 Intake Total 1000 ml 2500 ml Output Total 2000 ml 1800 ml Balance -1000 ml 700 ml Intake Oral 1000 ml 2500 ml Output Urine Total 2000 ml 1800 ml Laboratory Tests 11/03/18 06:00: White Blood Count 5.7, Red Blood Count 4.12L, Hemoglobin 10.6L, Hematocrit 34.0L , Mean Corpuscular Volume 83, Mean Corpuscular Hemoglobin 25.7L, Mean Corpuscular Hemoglobin Concent 31.1L, Red Cell Distribution Width 14.8, Platelet Count 214, Mean Platelet Volume 7.3, Neutrophils (%) (Auto) , Lymphocytes (%) (Auto) , Monocytes (%) (Auto) , Eosinophils (%) (Auto) , Basophils (%) (Auto) , Differential Total Cells Counted 100, Neutrophils % ( Manual) 25L, Lymphocytes % (Manual) 54H, Monocytes % (Manual) 15H, Eosinophils % (Manual) 6H, Basophils % (Manual) 0, Band Neutrophils 0, Platelet Estimate Adequate, Platelet Morphology Normal, Hypochromasia 1+, Anisocytosis 1+, Sodium Level 139, Potassium Level 4.3, Chloride Level 102, Carbon Dioxide Level 29, Anion Gap 8, Blood Urea Nitrogen 22H, Creatinine 0.9, Estimat Glomerular Filtration Rate > 60, Glucose Level 95, Uric Acid 5.2, Calcium Level 9.5, Phosphorus Level 3.8, Magnesium Level 1.7L, Total Bilirubin 0.2, Aspartate Amino Transf (AST/SGOT) 15, Alanine Aminotransferase (ALT/SGPT) 21, Alkaline Phosphatase 67, Pro-B-Type Natriuretic Peptide 109, Total Protein 7.5, Albumin 2.9L, Globulin 4.6, Albumin/Globulin Ratio 0.6L Height (Feet): 6 Height (Inches): 2.00 Weight (Pounds): 201 Cardiovascular: normal rate Respiratory/Chest: lungs clear Abdomen: soft Brittney Shepard MD Nov 03, 2018 21:54
[2018-11-04] VITALS: BP 117/58
[2018-11-04] MEDS: HYDROcodone/Acetamin 10/325 tab ORAL PRN ×5 (01:52→20:33)
--- NOTE | 2018-11-04 07:30 | NUR ---
NURSE NOTES: Received patient from Martha RN, patient is up in bed, no distress noted, bed is locked and in lowest position, call light within reach, will continue to monitor.
--- NOTE | 2018-11-04 07:42 | NUR ---
HAND-OFF: Report given to LAKEISHA Trevino.
[2018-11-04 08:00] VITALS: BP 126/62
[2018-11-04] MEDS: Albuterol/Ipratropium 3ml neb HHN SCH ×3 (08:04→19:00)
--- NOTE | 2018-11-04 08:50 | NUR ---
RESPIRATORY NOTE: Pt refused morning respiratory treatment. States "I'm not here for respiratory, I dont have asthma". Vitals were unable to attain because pt refused. RNUriel notified
[2018-11-04] MEDS: Spironolactone 25mg tab ORAL SCH (08:58)
[2018-11-04] MEDS: Aspirin Baby 81mg ORAL SCH (08:59)
[2018-11-04] MEDS: Heparin 5000 units/ml inj SUBQ SCH ×2 (09:00→20:33)
[2018-11-04] MEDS: Wixela 250/50 Inhaler - 60 dose INH SCH ×2 (10:00→20:48)
--- NOTE | 2018-11-04 11:58 | NUR ---
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 CELLULITIS VS: BP 117/58, P 60, T 97.8, RR 20, SpO2 97 IS: LIPITOR 10mg LASIX 10mg IV NORCO 10/325 LOTENSIN 10mg ALDACTONE 25mG MED/SURG STATUS
[2018-11-04 12:00] VITALS: BP 104/60
[2018-11-04 15:49] VITALS: BP 128/63
--- NOTE | 2018-11-04 15:53 | Nephrology Progress Note ---
Assessment/Plan Problem List: (1) Edema (2) COPD exacerbation (3) Marijuana abuse Assessment HTN Anemia Lower Ext edema Diastolic dysfunction COPD Drug Abuse Non Compliance Plan Lasix Adjust BP Monitor lytes Dc planning Subjective ROS Limited/Unobtainable: No Objective Objective Last 24 Hour Vital Signs Date Time Temp Pulse Resp B/P (MAP) Pulse Ox O2 Delivery O2 Flow Rate FiO2 11/04/18 15:49 97.6 63 19 128/63 (84) 98 11/04/18 13:26 Room Air 21 11/04/18 13:26 Room Air 21 11/04/18 12:00 98.1 58 18 104/60 (75) 100 11/04/18 11:54 97.8 11/04/18 10:10 Room Air 21 11/04/18 10:10 Room Air 21 11/04/18 08:58 117/58 11/04/18 08:45 Room Air 11/04/18 08:04 Room Air 21 11/04/18 08:04 Room Air 21 11/04/18 08:00 97.8 60 20 126/62 (83) 97 11/04/18 00:00 97.5 60 20 117/58 (77) 99 11/03/18 21:00 Room Air 11/03/18 20:00 97.0 62 20 109/67 (81) 97 11/03/18 19:52 Room Air 21 11/03/18 19:52 Room Air 21 11/03/18 19:52 Room Air 21 11/03/18 19:50 Room Air 21 11/03/18 16:00 98.4 65 20 129/62 (84) 98 Intake and Output 11/03/18 11/04/18 19:00 07:00 Intake Total 1000 ml Output Total 2500 ml 2600 ml Balance -1500 ml -2600 ml Intake Oral 1000 ml Output Urine Total 2500 ml 2600 ml Height (Feet): 6 Height (Inches): 2.00 Weight (Pounds): 201 General Appearance: no apparent distress Objective no change Jerzy Hardwick MD Nov 04, 2018 15:53
--- NOTE | 2018-11-04 15:58 | Cardiac Electrophysiology PN ---
Assessment/Plan Assessment/Plan 1. Accelerated hypertension. Avoid beta-marlyn in view of cocaine use. On Lasix 10 mg IV bid, aldactone and Lisinopril 10 mg po daily 2. Severe bilateral lower extremity edema. EF 60% with diastolic dysfunction. 3. Morbid obesity. 4. COPD. 5. Asthma, on Advair. 6. Cocaine use 7. Noncompliance 8. Hyperlipidemia. On Zocor 10 Subjective Subjective No CP or SOB. Objective Last 24 Hour Vital Signs Date Time Temp Pulse Resp B/P (MAP) Pulse Ox O2 Delivery O2 Flow Rate FiO2 11/04/18 15:49 97.6 63 19 128/63 (84) 98 11/04/18 13:26 Room Air 21 11/04/18 13:26 Room Air 21 11/04/18 12:00 98.1 58 18 104/60 (75) 100 11/04/18 11:54 97.8 11/04/18 10:10 Room Air 21 11/04/18 10:10 Room Air 21 11/04/18 08:58 117/58 11/04/18 08:45 Room Air 11/04/18 08:04 Room Air 21 11/04/18 08:04 Room Air 21 11/04/18 08:00 97.8 60 20 126/62 (83) 97 11/04/18 00:00 97.5 60 20 117/58 (77) 99 11/03/18 21:00 Room Air 11/03/18 20:00 97.0 62 20 109/67 (81) 97 11/03/18 19:52 Room Air 21 11/03/18 19:52 Room Air 21 11/03/18 19:52 Room Air 21 11/03/18 19:50 Room Air 11/03/18 16:00 98.4 65 20 129/62 (84) 98 Intake and Output 11/03/18 11/04/18 19:00 07:00 Intake Total 1000 ml Output Total 2500 ml 2600 ml Balance -1500 ml -2600 ml Intake Oral 1000 ml Output Urine Total 2500 ml 2600 ml Objective HEAD AND NECK: No JVD LUNGS: Clear. CARDIOVASCULAR: Regular S1 and S2 with no gallop or murmur. ABDOMEN: Soft. EXTREMITIES: 2+ pitting edema. Prosper Crum MD Nov 04, 2018 15:58
[2018-11-04] MEDS: Montelukast 10mg tablet ORAL SCH (16:16)
--- NOTE | 2018-11-04 16:18 | General Progress Note ---
Assessment/Plan Problem List: (1) Pain ICD Codes: R52 - Pain, unspecified SNOMED: 11009821 (2) CHF exacerbation ICD Codes: I50.9 - Heart failure, unspecified SNOMED: 59787901 (3) CHF (congestive heart failure) ICD Codes: I50.9 - Heart failure, unspecified SNOMED: 55014982 (4) Edema ICD Codes: R60.9 - Edema, unspecified SNOMED: 967993377, 466997021 (5) MDD (major depressive disorder) ICD Codes: F32.9 - Major depressive disorder, single episode, unspecified SNOMED: 482802669 (6) Edema ICD Codes: R60.9 - Edema, unspecified SNOMED: 155357488, 483123050 Qualifiers: Qualified Codes: R60.9 - Edema, unspecified Status: progressing Assessment/Plan chronic pain chf wants low dose lasix copd no wheezing severe le edema Subjective ROS Limited/Unobtainable: Yes Allergies: Coded Allergies: PENICILLINS (Verified Allergy, Unknown, 08/31/17) TRAMADOL (Verified Allergy, Unknown, 08/31/17) Objective Last 24 Hour Vital Signs Date Time Temp Pulse Resp B/P (MAP) Pulse Ox O2 Delivery O2 Flow Rate FiO2 11/04/18 15:49 97.6 63 19 128/63 (84) 98 11/04/18 13:26 Room Air 21 11/04/18 13:26 Room Air 21 11/04/18 12:00 98.1 58 18 104/60 (75) 100 11/04/18 11:54 97.8 11/04/18 10:10 Room Air 21 11/04/18 10:10 Room Air 21 11/04/18 08:58 117/58 11/04/18 08:45 Room Air 11/04/18 08:04 Room Air 21 11/04/18 08:04 Room Air 21 11/04/18 08:00 97.8 60 20 126/62 (83) 97 11/04/18 00:00 97.5 60 20 117/58 (77) 99 11/03/18 21:00 Room Air 11/03/18 20:00 97.0 62 20 109/67 (81) 97 11/03/18 19:52 Room Air 21 11/03/18 19:52 Room Air 21 11/03/18 19:52 Room Air 21 11/03/18 19:50 Room Air 21 Intake and Output 11/03/18 11/04/18 19:00 07:00 Intake Total 1000 ml Output Total 2500 ml 2600 ml Balance -1500 ml -2600 ml Intake Oral 1000 ml Output Urine Total 2500 ml 2600 ml Height (Feet): 6 Height (Inches): 2.00 Weight (Pounds): 201 Neck: supple Respiratory/Chest: lungs clear Abdomen: soft Brittney Shepard MD Nov 04, 2018 16:17
--- NOTE | 2018-11-04 18:35 | Consultation ---
History of Present Illness General Chief Complaint: Edema Present Illness Allergies: Coded Allergies: PENICILLINS (Verified Allergy, Unknown, 08/31/17) TRAMADOL (Verified Allergy, Unknown, 08/31/17) Medication History Scheduled Aspirin* (Aspirin*), 81 MG ORAL DAILY, (Reported) Benazepril Hcl* (Benazepril Hcl*), 10 MG ORAL BID, (Reported) Divalproex Sodium* (Depakote Er*), 750 MG ORAL BEDTIME, (Reported) Fluticasone/Salmeterol (Advair 250-50 Diskus), 1 PUFF INH EVERY 12 HOURS, ( Reported) Furosemide* (Lasix*), 20 MG ORAL BID Montelukast Sodium* (Singulair*), 10 MG ORAL DAILY, (Reported) Pantoprazole (Pantoprazole), 40 MG ORAL DAILY, (Reported) Simvastatin (Zocor), 20 MG ORAL BEDTIME, (Reported) Scheduled PRN Albuterol Sulfate* (Albuterol Sulfate Hhn*), 3 ML INH Q6H PRN for Shortness of Breath, (Reported) Hydrocodone Bit/Acetaminophen 10-325* (Thorndike 10-325*), 1 TAB ORAL Q4H PRN for For Pain, (Reported) Miscellaneous Medications Ferrous Sulfate (Iron), Unknown Dose PO, (Reported) Unable to Obtain Medications (Unable To Obtain Meds), (Reported) Patient History Healthcare decision maker n/a Resuscitation status Advanced Directive on File Physical Exam Last 24 Hour Vital Signs Date Time Temp Pulse Resp B/P (MAP) Pulse Ox O2 Delivery O2 Flow Rate FiO2 11/04/18 16:46 97.6 11/04/18 15:49 97.6 63 19 128/63 (84) 98 11/04/18 13:26 Room Air 21 11/04/18 13:26 Room Air 11/04/18 12:00 98.1 58 18 104/60 (75) 100 11/04/18 10:10 Room Air 21 11/04/18 10:10 Room Air 21 11/04/18 08:58 117/58 11/04/18 08:45 Room Air 11/04/18 08:04 Room Air 11/04/18 08:04 Room Air 11/04/18 08:00 97.8 60 20 126/62 (83) 97 11/04/18 00:00 97.5 60 20 117/58 (77) 99 11/03/18 21:00 Room Air 11/03/18 20:00 97.0 62 20 109/67 (81) 97 11/03/18 19:52 Room Air 21 11/03/18 19:52 Room Air 21 11/03/18 19:52 Room Air 21 11/03/18 19:50 Room Air 21 Intake and Output 11/03/18 11/04/18 19:00 07:00 Intake Total 1000 ml Output Total 2500 ml 2600 ml Balance -1500 ml -2600 ml Intake Oral 1000 ml Output Urine Total 2500 ml 2600 ml Height (Feet): 6 Height (Inches): 2.00 Weight (Pounds): 201 Medications Current Medications Medications (Trade) Dose Ordered Sig/Virgen Route PRN Reason Start Time Stop Time Status Last Admin Dose Admin Acetaminophen/ Hydrocodone Bitart (Thorndike 10/325) 1 tab Q4H PRN ORAL For Pain 10/30/18 21:45 11/06/18 21:44 11/04/18 16:16 Albuterol/ Ipratropium (Albuterol/ Ipratropium) 3 ml Q4H PRN HHN Shortness of Breath 10/31/18 17:00 11/05/18 16:59 Albuterol/ Ipratropium (Albuterol/ Ipratropium) 3 ml TIDRT HHN 10/31/18 19:00 11/05/18 18:59 Aspirin (ASA) 81 mg DAILY ORAL 10/31/18 09:00 11/30/18 08:59 11/04/18 08:59 Atorvastatin Calcium (Lipitor) 10 mg BEDTIME ORAL 11/01/18 21:00 12/01/18 20:59 11/03/18 20:37 Benazepril HCl (Lotensin) 10 mg DAILY ORAL 11/02/18 10:00 12/02/18 09:59 11/04/18 08:58 Furosemide (Lasix) 10 mg EVERY 12 HOURS IV 10/31/18 21:00 11/30/18 20:59 11/04/18 08:57 Heparin Sodium (Porcine) (Heparin 5000 units/ml) 5,000 units EVERY 12 HOURS SUBQ 10/31/18 21:00 11/30/18 20:59 Montelukast Sodium (Singulair) 10 mg QPM ORAL 11/02/18 16:30 12/02/18 16:29 11/04/18 16:16 Salmeterol Xinafoate/ Fluticasone (Advair 250/50 Diskus) 1 puffs BIDRT INH 10/31/18 22:00 11/30/18 21:59 Spironolactone (Aldactone) 25 mg DAILY ORAL 11/02/18 13:00 12/02/18 12:59 11/04/18 08:58 Assessment/Plan Assessment/Plan Hematology Consult REQ MD: Ion Shepard RFC: Anemia DOS: 11/04/18 ID 63-year-old M presents ED for evaluation. Complaining of right-sided rib pain, shortness of breath, bilateral leg swelling and with pain issues, I've seen him many times. hx of recurrent falls. Complaining of pain to the right side of ribs. 8 out of 10, sharp, nonradiating. Also complaining of shortness of breath. History of asthma. History of CHF. States he was placed on 10 mg of Lasix which she states is not helping. Associated leg swelling. Denies pain. Denies fevers or chills. No other aggravating relieving factors. Denies any other associated symptoms. Seen by [facility], started on iv lasix, continues to have anemia Allergies: Coded Allergies: PENICILLINS (Verified Allergy, Unknown, 08/31/17) TRAMADOL (Verified Allergy, Unknown, 08/31/17) Patient History Past Medical History: HTN, asthma, COPD Past Surgical History: none Pertinent Family History: none Social History: Denies: smoking, alcohol use, drug use Immunizations: UTD Reviewed Nursing Documentation: PMH: Agreed; PSxH: Agreed Nursing Documentation-PMH Hx Cardiac Problems: Yes - CHF Hx Hypertension: Yes Hx Asthma: Yes Hx COPD: Yes Hx Cancer: No Hx Gastrointestinal Problems: No Hx Neurological Problems: No Review of Systems All Other Systems: negative except mentioned in HPI Physical Exam Last 24 Hour Vital Signs Date Time Temp Pulse Resp B/P (MAP) Pulse Ox O2 Delivery O2 Flow Rate FiO2 11/04/18 16:46 97.6 11/04/18 15:49 97.6 63 19 128/63 (84) 98 11/04/18 13:26 Room Air 21 11/04/18 13:26 Room Air 21 11/04/18 12:00 98.1 58 18 104/60 (75) 100 11/04/18 10:10 Room Air 21 11/04/18 10:10 Room Air 21 11/04/18 08:58 117/58 11/04/18 08:45 Room Air 11/04/18 08:04 Room Air 21 11/04/18 08:04 Room Air 21 11/04/18 08:00 97.8 60 20 126/62 (83) 97 11/04/18 00:00 97.5 60 20 117/58 (77) 99 11/03/18 21:00 Room Air 11/03/18 20:00 97.0 62 20 109/67 (81) 97 11/03/18 19:52 Room Air 21 11/03/18 19:52 Room Air 21 11/03/18 19:52 Room Air 11/03/18 19:50 Room Air 21 General: nad Eyes: bilateral eye PERRL Pulm: speaking full sentences, wheezing, other - R sided rib pain Cardiovascular: regular rate, rhythm, no edema Gastrointestinal: normal bowel sounds, non tender, s Genitourinary: normal inspection, no CVA tenderness Musculoskeletal: back normal, gait/station normal Neurologic: alert, oriented x3, responsive Psychiatric: judgement/insight normal, memory normal, mood/affect normal, no suicidal/homicidal ideation Skin: normal color, no rash, 2++ edema b/l Lymphatic: no adenopathy Labs: have been reviewed Current Medications Medications (Trade) Dose Ordered Sig/Virgen Route PRN Reason Start Time Stop Time Status Last Admin Dose Admin Acetaminophen/ Hydrocodone Bitart (Thorndike 10/325) 1 tab Q4H PRN ORAL For Pain 10/30/18 21:45 11/06/18 21:44 11/04/18 16:16 Albuterol/ Ipratropium (Albuterol/ Ipratropium) 3 ml Q4H PRN HHN Shortness of Breath 10/31/18 17:00 11/05/18 16:59 Albuterol/ Ipratropium (Albuterol/ Ipratropium) 3 ml TIDRT HHN 10/31/18 19:00 11/05/18 18:59 Aspirin (ASA) 81 mg DAILY ORAL 10/31/18 09:00 11/30/18 08:59 11/04/18 08:59 Atorvastatin Calcium (Lipitor) 10 mg BEDTIME ORAL 11/01/18 21:00 12/01/18 20:59 11/03/18 20:37 Benazepril HCl (Lotensin) 10 mg DAILY ORAL 11/02/18 10:00 12/02/18 09:59 11/04/18 08:58 Furosemide (Lasix) 10 mg EVERY 12 HOURS IV 10/31/18 21:00 11/30/18 20:59 11/04/18 08:57 Heparin Sodium (Porcine) (Heparin 5000 units/ml) 5,000 units EVERY 12 HOURS SUBQ 10/31/18 21:00 11/30/18 20:59 Montelukast Sodium (Singulair) 10 mg QPM ORAL 11/02/18 16:30 12/02/18 16:29 11/04/18 16:16 Salmeterol Xinafoate/ Fluticasone (Advair 250/50 Diskus) 1 puffs BIDRT INH 10/31/18 22:00 11/30/18 21:59 Spironolactone (Aldactone) 25 mg DAILY ORAL 11/02/18 13:00 12/02/18 12:59 11/04/18 08:58 #. Anemia due to underlying iron deficiency. The patient on prior admission given IV iron. --> ferritin is reviewed and is 82, TIBC is approx 200, likely iron depleted --> cont to monitor and trend cbc --> Hgb goal >7, transfuse prn. --> Cont po iron daily --> no e/o hemolysis noted #. Anemia due to hemodilution with chf overload --> as per cardiology, diuresis as required --> seen by Dr. Crum, on lasix iv #. Borderline mediastinal lymphadenopathy, nonspecific etiology. Multiple small right lung nodules. --> Repeat CT scan in 6 to 12 months. --> f/u with [facility] #. Leukopenia in the past. Hepatitis and HIV is negative. --> Ultrasound showed no acute findings. --> Medications have been reviewed. --> Cont to monitor for improvement. --> given neupogen if anc <1000 #. Congestive heart failure exacerbation versus asthma. as per Dr. Crum. --> cards and pulm recs reviewed --> diuresis as per goal #. Chronic venous stasis lower extremities. #. Chronic obstructive pulmonary disease exacerbation. initially with shortness of breath. --> as per pulm, hold off on steriods this admission #. Psych disorder as per Dr. Norman (seen before) #. DVT prophylaxis with heparin. Appreciate consultation greatly! Kade Fermin MD Nov 04, 2018 18:35
--- NOTE | 2018-11-04 19:18 | NUR ---
HAND-OFF: Report given to Martha SUAZO.
--- NOTE | 2018-11-04 19:30 | NUR ---
NURSE NOTES: Received report form LAKEISHA Trevino. Patient A&Ox4, on room air. No signs of distress or labored breathing. IV intact, patent, and saline locked. Bed in lowest position with call light in reach. Will continue with plan of care.
[2018-11-04 20:00] VITALS: BP 130/51
[2018-11-05] VITALS: BP 114/53
[2018-11-05] MEDS: HYDROcodone/Acetamin 10/325 tab ORAL PRN ×6 (00:56→21:07)
[2018-11-05] MEDS: Albuterol/Ipratropium 3ml neb HHN SCH ×2 (07:40→13:00)
--- NOTE | 2018-11-05 07:53 | NUR ---
NURSE NOTES: Patient alert x4, on room air, no sign of distress and shortness of breath; no sing of chest pain; IV RFA flushes well; urinal within reach; bed at lowest position, side rails up x2, breaks engaged; will keep monitoring.
--- NOTE | 2018-11-05 07:57 | NUR ---
HAND-OFF: Report given to LAKEISHA Holguin.
[2018-11-05 08:00] VITALS: BP 122/72
[2018-11-05] MEDS: Heparin 5000 units/ml inj SUBQ SCH ×2 (09:00→21:00)
[2018-11-05] MEDS: Aspirin Baby 81mg ORAL SCH (09:09)
[2018-11-05] MEDS: Spironolactone 25mg tab ORAL SCH (09:10)
[2018-11-05] MEDS: Wixela 250/50 Inhaler - 60 dose INH SCH ×2 (10:00→20:50)
--- NOTE | 2018-11-05 11:31 | NUR ---
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 CELLULITIS VS: BP 122/72, P 67, T 98.6, RR 18, SpO2 97 IS: LIPITOR 10mg LASIX 10mg IV NORCO 10/325 LOTENSIN 10mg ALDACTONE 25mG MED/SURG STATUS
[2018-11-05 12:00] VITALS: BP 123/77
--- NOTE | 2018-11-05 13:02 | General Progress Note ---
Assessment/Plan Assessment/Plan Assessment/Recs #. Anemia due to underlying iron deficiency. The patient on prior admission given IV iron. --> ferritin is reviewed and is 82, TIBC is approx 200, likely iron depleted --> cont to monitor and trend cbc --> Hgb goal >7, transfuse prn. --> Cont po iron daily --> no e/o hemolysis noted #. Anemia due to hemodilution with chf overload --> as per cardiology, diuresis as required --> seen by Dr. Crum, on lasix iv #. Borderline mediastinal lymphadenopathy, nonspecific etiology. Multiple small right lung nodules. --> Repeat CT scan in 6 to 12 months. --> f/u with [facility] #. Leukopenia in the past. Hepatitis and HIV is negative. --> Ultrasound showed no acute findings. --> Medications have been reviewed. --> Cont to monitor for improvement. --> given neupogen if anc <1000 #. Congestive heart failure exacerbation versus asthma. as per Dr. Crum. --> cards and pulm recs reviewed --> diuresis as per goal #. Chronic venous stasis lower extremities. #. Chronic obstructive pulmonary disease exacerbation. initially with shortness of breath. --> as per pul, hold off on steriods this admission #. Psych disorder as per Dr. Norman (seen before) #. DVT prophylaxis with heparin. Appreciate consultation greatly! Subjective Allergies: Coded Allergies: PENICILLINS (Verified Allergy, Unknown, 08/31/17) TRAMADOL (Verified Allergy, Unknown, 08/31/17) Subjective 11/05: seen by bedside, awake, comfortable, no acute distress. Objective Last 24 Hour Vital Signs Date Time Temp Pulse Resp B/P (MAP) Pulse Ox O2 Delivery O2 Flow Rate FiO2 11/05/18 12:00 98.3 66 18 123/77 (92) 97 11/05/18 09:40 98.6 11/05/18 09:10 122/72 11/05/18 09:00 Room Air 11/05/18 08:00 98.6 67 18 122/72 (89) 97 11/05/18 07:40 Room Air 21 11/05/18 07:40 Room Air 21 11/05/18 07:40 Room Air 21 11/05/18 07:40 Room Air 21 11/05/18 00:00 98.1 61 18 114/53 (73) 97 11/04/18 21:00 Room Air 11/04/18 20:48 Room Air 21 11/04/18 20:47 Room Air 21 11/04/18 20:47 Room Air 21 11/04/18 20:46 Room Air 21 11/04/18 20:00 99.1 60 19 130/51 (77) 97 11/04/18 16:46 97.6 11/04/18 15:49 97.6 63 19 128/63 (84) 98 11/04/18 13:26 Room Air 21 11/04/18 13:26 Room Air 21 Intake and Output 11/04/18 11/05/18 18:59 06:59 Intake Total 1400 ml Output Total 3525 ml Balance 1400 ml -3525 ml Intake Oral 1400 ml Output Urine Total 3525 ml # Voids 8 Height (Feet): 6 Height (Inches): 2.00 Weight (Pounds): 142 Objective PE: General: nad Eyes: bilateral eye PERRL Pulm: speaking full sentences, wheezing, other - R sided rib pain Cardiovascular: regular rate, rhythm, no edema Gastrointestinal: normal bowel sounds, non tender Genitourinary: normal inspection, no CVA tenderness Musculoskeletal: back normal, gait/station normal Neurologic: alert, oriented x3, responsive Psychiatric: judgement/insight normal, memory normal, mood/affect normal, no suicidal/homicidal ideation Skin: normal color, no rash, 2++ edema b/l Kade Fermin MD Nov 05, 2018 13:02
--- NOTE | 2018-11-05 14:47 | NUR ---
NURSE NOTES: Patient is not compliant to work with the physical therapy; when ever PT comes to work with him, patient is saying come back later.
--- NOTE | 2018-11-05 15:03 | NUR ---
NURSE NOTES: Physical therapy work with patient today, tolerated well; patient said, will ready to leave tomorrow.
--- NOTE | 2018-11-05 15:52 | Nephrology Progress Note ---
Assessment/Plan Problem List: (1) Edema (2) COPD exacerbation (3) Marijuana abuse Assessment HTN Anemia Lower Ext edema Diastolic dysfunction COPD Drug Abuse Non Compliance Plan PT eval Lasix Adjust BP Monitor lytes Dc planning Subjective ROS Limited/Unobtainable: No Constitutional: Reports: malaise, other - states not to be able to ambulate Objective Objective Last 24 Hour Vital Signs Date Time Temp Pulse Resp B/P (MAP) Pulse Ox O2 Delivery O2 Flow Rate FiO2 11/05/18 13:42 98.3 11/05/18 13:05 Room Air 21 11/05/18 13:04 Room Air 21 11/05/18 12:00 98.3 66 18 123/77 (92) 97 11/05/18 09:10 122/72 11/05/18 09:00 Room Air 11/05/18 08:00 98.6 67 18 122/72 (89) 97 11/05/18 07:40 Room Air 21 11/05/18 07:40 Room Air 21 11/05/18 07:40 Room Air 21 11/05/18 07:40 Room Air 21 11/05/18 00:00 98.1 61 18 114/53 (73) 97 11/04/18 21:00 Room Air 11/04/18 20:48 Room Air 21 11/04/18 20:47 Room Air 21 11/04/18 20:47 Room Air 21 11/04/18 20:46 Room Air 21 11/04/18 20:00 99.1 60 19 130/51 (77) 97 11/04/18 16:46 97.6 Intake and Output 11/04/18 11/05/18 19:00 07:00 Intake Total 1400 ml Output Total 3525 ml Balance 1400 ml -3525 ml Intake Oral 1400 ml Output Urine Total 3525 ml # Voids 8 Height (Feet): 6 Height (Inches): 2.00 Weight (Pounds): 142 General Appearance: no apparent distress Cardiovascular: normal rate Respiratory/Chest: lungs clear Neurologic: other - no deficit Objective no change Jerzy Hardwick MD Nov 05, 2018 15:52
[2018-11-05 16:00] VITALS: BP 127/79
--- NOTE | 2018-11-05 16:10 | Cardiac Electrophysiology PN ---
Assessment/Plan Assessment/Plan 1. Accelerated hypertension. Avoid beta-marlyn for cocaine use. On Lasix 10 mg IV bid, Aldactone and Lisinopril 10 mg po daily 2. Severe bilateral lower extremity edema. EF 60% with diastolic dysfunction. 3. Morbid obesity. 4. COPD. 5. Asthma, on Advair. 6. Cocaine use 7. Noncompliance 8. Hyperlipidemia. On Zocor 10 Subjective Subjective No CP or SOB. Diuresing well. DC planning in am. Objective Last 24 Hour Vital Signs Date Time Temp Pulse Resp B/P (MAP) Pulse Ox O2 Delivery O2 Flow Rate FiO2 11/05/18 16:00 98.0 67 20 127/79 (95) 95 11/05/18 13:42 98.3 11/05/18 13:05 Room Air 21 11/05/18 13:04 Room Air 21 11/05/18 12:00 98.3 66 18 123/77 (92) 97 11/05/18 09:10 122/72 11/05/18 09:00 Room Air 11/05/18 08:00 98.6 67 18 122/72 (89) 97 11/05/18 07:40 Room Air 21 11/05/18 07:40 Room Air 21 11/05/18 07:40 Room Air 21 11/05/18 07:40 Room Air 21 11/05/18 00:00 98.1 61 18 114/53 (73) 97 11/04/18 21:00 Room Air 11/04/18 20:48 Room Air 21 11/04/18 20:47 Room Air 21 11/04/18 20:47 Room Air 21 11/04/18 20:46 Room Air 21 11/04/18 20:00 99.1 60 19 130/51 (77) 97 11/04/18 16:46 97.6 Intake and Output 11/04/18 11/05/18 19:00 07:00 Intake Total 1400 ml Output Total 3525 ml Balance 1400 ml -3525 ml Intake Oral 1400 ml Output Urine Total 3525 ml # Voids 8 Objective HEAD AND NECK: No JVD LUNGS: Clear. CARDIOVASCULAR: Regular S1 and S2 with no gallop or murmur. ABDOMEN: Soft. EXTREMITIES: 1+ pitting edema. Prosper Crum MD Nov 05, 2018 16:10
[2018-11-05] MEDS: Montelukast 10mg tablet ORAL SCH (17:17)
--- NOTE | 2018-11-05 17:25 | NUR ---
P.T Note: late entry 1420 P.T evaluation completed and treatment initiated. Please refer to P.T evaluation for current functional status. Pt limited by generalized weakness, decreased activity tolerance and L knee pain ( premedicated ) 12/26. Pt currently performs Bed mobility independently , Able to transfer : sit to/from stand with bed elevated at thigh for leverage with SBA x 1. Pt was able to ambulate and tolerate distance of 50 ft x 2 with intermittent standing rest breaks due to fatigue. Gait pace is slow however steady using the FWW. Pt will benefit from skilled P.T during stay to increase strength and activity tolerance. Recommend either home P.T or outpatient rehab at [facility]. Thank you for this referral.
--- NOTE | 2018-11-05 19:29 | NUR ---
HAND-OFF: Report given to LAKEISHA Castillo.
[2018-11-05 20:11] VITALS: BP 132/55
--- NOTE | 2018-11-05 20:44 | NUR ---
NURSE NOTES: Received patient awake,alert,verbal,resting in bed,comfortable.
--- NOTE | 2018-11-05 21:20 | General Progress Note ---
Assessment/Plan Problem List: (1) Pain ICD Codes: R52 - Pain, unspecified SNOMED: 19766724 (2) CHF exacerbation ICD Codes: I50.9 - Heart failure, unspecified SNOMED: 74728027 (3) CHF (congestive heart failure) ICD Codes: I50.9 - Heart failure, unspecified SNOMED: 02254031 (4) Edema ICD Codes: R60.9 - Edema, unspecified SNOMED: 100698022, 570752284 (5) MDD (major depressive disorder) ICD Codes: F32.9 - Major depressive disorder, single episode, unspecified SNOMED: 019498886 (6) Edema ICD Codes: R60.9 - Edema, unspecified SNOMED: 364980715, 605745048 Qualifiers: Qualified Codes: R60.9 - Edema, unspecified Status: progressing Assessment/Plan chf improving noncompliant w lasix and diet severe le edema Subjective ROS Limited/Unobtainable: Yes Allergies: Coded Allergies: PENICILLINS (Verified Allergy, Unknown, 08/31/17) TRAMADOL (Verified Allergy, Unknown, 08/31/17) Objective Last 24 Hour Vital Signs Date Time Temp Pulse Resp B/P (MAP) Pulse Ox O2 Delivery O2 Flow Rate FiO2 11/05/18 20:50 80 18 Room Air 21 11/05/18 20:49 Room Air 21 11/05/18 20:49 Room Air 21 11/05/18 20:11 99.0 71 18 132/55 (80) 94 11/05/18 17:48 98.0 11/05/18 16:00 98.0 67 20 127/79 (95) 95 11/05/18 13:05 Room Air 21 11/05/18 13:04 Room Air 21 11/05/18 12:00 98.3 66 18 123/77 (92) 97 11/05/18 09:10 122/72 11/05/18 09:00 Room Air 11/05/18 08:00 98.6 67 18 122/72 (89) 97 11/05/18 07:40 Room Air 21 11/05/18 07:40 Room Air 21 11/05/18 07:40 Room Air 21 11/05/18 07:40 Room Air 21 11/05/18 00:00 98.1 61 18 114/53 (73) 97 Intake and Output 11/04/18 11/05/18 19:00 07:00 Intake Total 1400 ml Output Total 3525 ml Balance 1400 ml -3525 ml Intake Oral 1400 ml Output Urine Total 3525 ml # Voids 8 Height (Feet): 6 Height (Inches): 2.00 Weight (Pounds): 142 Neck: supple Cardiovascular: normal rate Respiratory/Chest: lungs clear Abdomen: soft Brittney Shepard MD Nov 05, 2018 21:20
[2018-11-06] MEDS: HYDROcodone/Acetamin 10/325 tab ORAL PRN ×3 (01:03→09:22)
[2018-11-06 04:00] VITALS: BP 135/59
--- NOTE | 2018-11-06 07:32 | NUR ---
HAND-OFF: Report given to Obinna Holguin RN.
--- NOTE | 2018-11-06 07:49 | NUR ---
NURSE NOTES: Patient alert x4, on room air, no sign of distress and shortness of breath; no sign of chest pain; urinal within reach; IV L-Hand flushes well; side rails up x2, bed at lowest position, breaks engaged. Will keep monitoring.
[2018-11-06 08:00] VITALS: BP 121/56
[2018-11-06] MEDS: Heparin 5000 units/ml inj SUBQ SCH (09:00)
[2018-11-06] MEDS: Spironolactone 25mg tab ORAL SCH (09:21)
[2018-11-06] MEDS: Aspirin Baby 81mg ORAL SCH (09:21)
[2018-11-06] MEDS: Wixela 250/50 Inhaler - 60 dose INH SCH (10:00)
--- NOTE | 2018-11-06 11:59 | Nephrology Progress Note ---
Assessment/Plan Problem List: (1) Edema (2) COPD exacerbation (3) Marijuana abuse Assessment HTN Anemia Lower Ext edema Diastolic dysfunction COPD Drug Abuse Non Compliance Plan PT eval Lasix Adjust BP Monitor lytes Dc planning Subjective ROS Limited/Unobtainable: No Objective Objective Last 24 Hour Vital Signs Date Time Temp Pulse Resp B/P (MAP) Pulse Ox O2 Delivery O2 Flow Rate FiO2 11/06/18 09:52 98.0 11/06/18 09:23 121/56 11/06/18 09:00 Room Air 11/06/18 08:00 98.0 65 18 121/56 (77) 98 11/06/18 07:40 Room Air 21 11/06/18 07:40 Room Air 21 11/06/18 04:00 98.1 60 18 135/59 (84) 98 11/05/18 21:00 Room Air 11/05/18 20:50 80 18 Room Air 21 11/05/18 20:49 Room Air 21 11/05/18 20:49 Room Air 21 11/05/18 20:11 99.0 71 18 132/55 (80) 94 11/05/18 16:00 98.0 67 20 127/79 (95) 95 11/05/18 13:05 Room Air 21 11/05/18 13:04 Room Air 21 11/05/18 12:00 98.3 66 18 123/77 (92) 97 Intake and Output 11/05/18 11/06/18 18:59 06:59 Intake Total 2000 ml 1800 ml Balance 2000 ml 1800 ml Intake Oral 2000 ml 1800 ml # Voids 4 4 Height (Feet): 6 Height (Inches): 2.00 Weight (Pounds): 142 General Appearance: no apparent distress Objective no change Jerzy Hardwick MD Nov 06, 2018 11:59
[2018-11-06 12:00] VITALS: BP 108/60
--- NOTE | 2018-11-06 12:58 | NUR ---
NURSE NOTES: Patient discharged around 1240, left the floor using patient's own walker accompanied by RN. IV access and name tag removed upon discharge. Printed package given; belonging lists signed by patient and discharging RN. Patient was stable upon discharge.
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
== END 2018-11-06 12:47 | disposition home or self-care (01) | DRG 194 ==
LOC: EMR 14:35 → 4E 14:36 → EDBEDREQ 15:22 → 4E 18:03
DX: I11.0 Hypertensive heart disease with heart failure (principal); J44.9 Chronic obstructive pulmonary disease, unspecified; E66.01 Morbid (severe) obesity due to excess calories; D50.9 Iron deficiency anemia, unspecified; E78.5 Hyperlipidemia, unspecified; F14.10 Cocaine abuse, uncomplicated; F12.10 Cannabis abuse, uncomplicated; F32.9 Major depressive disorder, single episode, unspecified; G47.33 Obstructive sleep apnea (adult) (pediatric); Z91.14 Patient's other noncompliance with medication regimen; I50.33 Acute on chronic diastolic (congestive) heart failure; Z88.6 Allergy status to analgesic agent; Z88.0 Allergy status to penicillin; R59.0 Localized enlarged lymph nodes; Z91.11 Patient's noncompliance with dietary regimen; I87.8 Other specified disorders of veins; R91.8 Other nonspecific abnormal finding of lung field
CPT/HCPCS: 36415; 71045; 80048; 80053; 80307; 81003; 82550; 83605; 83735; 83880; 84100; 84443; 84484; 84550; 85007; 85025; 85610; 85651; 85730; 86140; 93005; 93970; 94640; 94664; 96365; 96366; 96375; 99285; J2405; J7620

== ENCOUNTER 2018-11-16 14:12 | Inpatient (IN) | payer MEDICAID ==
[~2018-11-16] VITALS: Ht 190.5 cm; Wt 69.0 kg
--- NOTE | 2018-11-16 14:27 | NUR ---
ED Nurse Note: Pt walked in with walker from home due to edema on bilateral lower legs x 2 days, pain 8/10 charly. Pt has hx of CHF. Swelling non-pitting +2, tender to touch. Aox4, VSS charly. Will cont to monitor. Addendum: 11/16/18 at 1432 by [facility] ED Nurse Note: Pt walked in with walker from home due to edema on bilateral lower legs x 2 days, pain 8/10 charly. Pt has hx of CHF. Swelling non-pitting +1, tender to touch. Aox4, VSS charly. Will cont to monitor.
[2018-11-16] MEDS ORDERED: Morphine Sulfate 4mg/ml Inj (IV USE ONLY) IVP ONE (14:30)
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
[2018-11-16] MEDS ORDERED: FUROSEMIDE20 M1 ORAL (14:35)
[2018-11-16 14:52] VITALS: BP 120/60
--- NOTE | 2018-11-16 14:57 | NUR ---
ED Nurse Note: Blood and urine collected and sent to lab.
[2018-11-16 15:16] LABS: APPEARANCE,URINE CLEAR; BILIRUBIN, URINE NEGATIVE (NEGATIVE); COLOR,URINE PALE YELLOW; GLUCOSE, URINE (UA) NEGATIVE (NEGATIVE); KETONES,URINE NEGATIVE (NEGATIVE); LEUKOCYTE ESTERASE ,URINE 1+ (NEGATIVE); NITRITE,URINE POSITIVE (NEGATIVE); PH,URINE 5 (4.5-8.0); PROTEIN,URINE NEGATIVE (NEGATIVE); UROBILINOGEN,URINE NORMAL MG/DL (0.0-1.0)
[2018-11-16 15:22] LABS: BASOPHILS % (AUTO) 1.6 % (0.0-2.0); EOSINOPHILS % (AUTO) 7.6 % (0.0-3.0); HEMATOCRIT 31.8 % (42.0-52.0); HEMOGLOBIN 9.9 G/DL (14.2-18.0); LYMPHOCYTES % (AUTO) 48.8 % (20.0-45.0); MEAN CORPUSCULAR VOLUME 82 FL (80-99); MONOCYTES % (AUTO) 5.3 % (1.0-10.0); NEUTROPHILS % (AUTO) 36.7 % (45.0-75.0); PLATELET COUNT 193 K/UL (150-450); RED BLOOD COUNT 3.89 M/UL (4.70-6.10); RED CELL DISTRIBUTION WIDTH 15.1 % (11.6-14.8); WHITE BLOOD COUNT 6.2 K/UL (4.8-10.8)
[2018-11-16 15:29] LABS: INR 0.9 (0.9-1.1)
[2018-11-16 15:34] LABS: ANION GAP 11 mmol/L (5-15); BLOOD UREA NITROGEN 28 mg/dL (7-18); CALCIUM 9.3 MG/DL (8.5-10.1); CARBON DIOXIDE 26 MMOL/L (21-32); CHLORIDE 105 MMOL/L (98-107); POTASSIUM 3.7 MMOL/L (3.5-5.1); SODIUM 142 MMOL/L (136-145)
[2018-11-16 15:44] LABS: ALANINE AMINOTRANSFERASE 20 U/L (12-78); ALBUMIN 3.1 G/DL (3.4-5.0); ALBUMIN/GLOBULIN RATIO 0.7 (1.0-2.7); ALKALINE PHOSPHATASE 73 U/L (46-116); ASPARTATE AMINO TRANSFERASE 13 U/L (15-37); BILIRUBIN,TOTAL 0.2 MG/DL (0.2-1.0); CREATINE KINASE 142 U/L (26-308)
[2018-11-16 16:08] VITALS: BP 117/69
--- NOTE | 2018-11-16 16:08 | NUR ---
ED Nurse Note: Report given to LAKEISHA Torres at ext [phone]. Pt to be transfered to room [facility] per protocol with all belongings.
[2018-11-16] MEDS ORDERED: Albuterol/Ipratropium 3ml neb HHN PRN (17:15)
[2018-11-16] MEDS: Benazepril 10mg tab ORAL SCH (17:53)
--- NOTE | 2018-11-16 19:10 | NUR ---
HAND-OFF: Report given to Qian SUAZO.
--- NOTE | 2018-11-16 19:15 | NUR ---
NURSE NOTES: Pt received asleep, bed in lowest position, able to make needs known, call light within reach, no signs of distress, will continue to monitor.
[2018-11-16] MEDS: HYDROcodone/Acetamin 10/325 tab ORAL PRN (19:45)
--- NOTE | 2018-11-16 19:55 | NUR ---
CASE MANAGEMENT: INITIAL REVIEW 63 YO M PRESENTED TO OUR ED FROM HOME CC: EDEMA PMHx: HTN. ASTHMA. COPD. SI:EDEMA. T 96.4 HR 88 RR 22 B/P 100/55 SATS 95% ON RA BUN 28 GLU 109 AST 13 U TOX (COCAINE, THC) IS: MORPHINE IV X1 LASIX IV X1 ZOFRAN IV X1 PATIENT ADMITTED TO MED/SURG 11/16/2018 @ 1506 DCP: PATIENT TO BE DISCHARGED TO HOME ONCE MEDICALLY CLEARED.
[2018-11-16 20:00] VITALS: BP 106/63
[2018-11-17] VITALS: BP 106/52
[2018-11-17 04:00] VITALS: BP 110/65
[2018-11-17] MEDS: HYDROcodone/Acetamin 10/325 tab ORAL PRN ×4 (06:44→21:42)
--- NOTE | 2018-11-17 07:28 | NUR ---
HAND-OFF: Report given to LAKEISHA Florian.
--- NOTE | 2018-11-17 07:35 | NUR ---
NURSE NOTES: Received patient on bed, awake. No IV access, will attempt later. Bed in low and locked position, call light in reach. No pain or respiratory distress. Room board updated, will continue to monitor.
[2018-11-17 08:00] VITALS: BP 119/66
[2018-11-17 08:00] LABS: HEMATOCRIT 32.6 % (42.0-52.0); HEMOGLOBIN 10.2 G/DL (14.2-18.0); MEAN CORPUSCULAR VOLUME 83 FL (80-99); PLATELET COUNT 222 K/UL (150-450); RED BLOOD COUNT 3.94 M/UL (4.70-6.10); RED CELL DISTRIBUTION WIDTH 15.7 % (11.6-14.8); WHITE BLOOD COUNT 5.5 K/UL (4.8-10.8)
[2018-11-17 08:10] LABS: ALANINE AMINOTRANSFERASE 20 U/L (12-78); ALBUMIN 2.8 G/DL (3.4-5.0); ALBUMIN/GLOBULIN RATIO 0.7 (1.0-2.7); ALKALINE PHOSPHATASE 70 U/L (46-116); ANION GAP 7 mmol/L (5-15); ASPARTATE AMINO TRANSFERASE 14 U/L (15-37); BILIRUBIN,TOTAL 0.2 MG/DL (0.2-1.0); BLOOD UREA NITROGEN 25 mg/dL (7-18); CALCIUM 9.2 MG/DL (8.5-10.1); CARBON DIOXIDE 29 MMOL/L (21-32); CHLORIDE 107 MMOL/L (98-107); POTASSIUM 4.2 MMOL/L (3.5-5.1); SODIUM 143 MMOL/L (136-145)
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
--- NOTE | 2018-11-17 08:32 | NUR ---
[employer] SI:EDEMA VS: BP 106/52, P 71, T 97.8, RR 20, SpO2 98 RBC 3.94, Hgb 10.2, Hct 32.6, BUN 25, Urine Nitrate: Positive IS:[place] 10/325 ALBUTEROL 3ml LOTENSIN 10mg HHN LIPITOR 10mg LASIX 10mg SINGULAIR 10mg MED/SURG STATUS
[2018-11-17] MEDS: Benazepril 10mg tab ORAL SCH ×2 (08:35→17:38)
[2018-11-17] MEDS: Aspirin Baby 81mg ORAL SCH (08:35)
--- NOTE | 2018-11-17 08:49 | General Progress Note ---
Assessment/Plan Assessment/Plan (1) B/L LE pain (2) Edema (3) B/L knee pain (4) B/L Knee OA (5) Morbid obesity (6) Cocaine abuse Pt to be continued on [place] changed to Q4H PRN severe pain. D/w Dr. Hurley and he concurred. Subjective Date patient seen: Nov 17, 2018 Time patient seen: 07:15 - am Allergies: Coded Allergies: PENICILLINS (Verified Allergy, Unknown, 08/31/17) TRAMADOL (Verified Allergy, Unknown, 08/31/17) Subjective Constitutional: Reports: no symptoms HEENT: Reports: no symptoms Cardiovascular: Reports: no symptoms Respiratory: Reports: no symptoms Gastrointestinal/Abdominal: Reports: no symptoms Genitourinary: Reports: no symptoms Neurologic/Psychiatric: Reports: no symptoms Endocrine: Reports: no symptoms Hematologic/Lymphatic: Reports: no symptoms Subjective Patient is a known patient and has returned due to edema. He was started on [place] 10/325mg Q6H PRN. Objective Last 24 Hour Vital Signs Date Time Temp Pulse Resp B/P (MAP) Pulse Ox O2 Delivery O2 Flow Rate FiO2 11/17/18 08:35 119/66 11/17/18 04:00 98.4 76 18 110/65 (80) 100 11/17/18 00:00 98.6 71 20 106/52 (70) 99 11/16/18 21:02 82 20 Room Air 11/16/18 21:00 Room Air 11/16/18 20:00 97.8 82 20 106/63 (77) 98 11/16/18 17:53 120/60 11/16/18 16:51 Room Air 11/16/18 16:09 96.5 84 20 120/60 98 Room Air 11/16/18 16:08 96.5 82 19 117/69 99 Room Air 11/16/18 15:19 96.5 11/16/18 14:52 84 20 120/60 98 Room Air 11/16/18 14:30 88 22 Room Air 11/16/18 14:24 96.4 88 22 100/55 95 Room Air Intake and Output 11/16/18 11/17/18 19:00 07:00 Intake Total 500 ml Output Total 900 ml Balance -400 ml Intake Oral 500 ml Output Urine Total 900 ml # Voids 1 # Bowel Movements 1 Laboratory Tests 11/16/18 14:45: White Blood Count 6.2, Red Blood Count 3.89L, Hemoglobin 9.9L, Hematocrit 31.8L , Mean Corpuscular Volume 82, Mean Corpuscular Hemoglobin 25.4L, Mean Corpuscular Hemoglobin Concent 31.0L, Red Cell Distribution Width 15.1H, Platelet Count 193, Mean Platelet Volume 7.4, Neutrophils (%) (Auto) 36.7L, Lymphocytes (%) (Auto) 48.8H, Monocytes (%) (Auto) 5.3, Eosinophils (%) (Auto) 7.6H, Basophils (%) (Auto) 1.6, Prothrombin Time 10.0, Prothromb Time International Ratio 0.9, Activated Partial Thromboplast Time 25, Sodium Level 142, Potassium Level 3.7, Chloride Level 105, Carbon Dioxide Level 26, Anion Gap 11, Blood Urea Nitrogen 28H, Creatinine 1.0, Estimat Glomerular Filtration Rate > 60, Glucose Level 109H, Calcium Level 9.3, Ferritin 235, Total Bilirubin 0.2, Aspartate Amino Transf (AST/SGOT) 13L, Alanine Aminotransferase (ALT/SGPT) 20, Alkaline Phosphatase 73, Total Creatine Kinase 142, Troponin I 0.007, Pro-B- Type Natriuretic Peptide 56, Total Protein 7.5, Albumin 3.1L, Globulin 4.4, Albumin/Globulin Ratio 0.7L 11/16/18 14:55: Urine Color Pale yellow, Urine Appearance Clear, Urine pH 5, Urine Specific [place] 1.010, Urine Protein Negative, Urine Glucose (UA) Negative, Urine Ketones Negative, Urine Blood Negative, Urine Nitrite PositiveH, Urine Bilirubin Negative, Urine Urobilinogen Normal, Urine Leukocyte Esterase 1+H, Urine RBC 0-2H, Urine WBC 2-4, Urine Squamous Epithelial Cells Few, Urine Bacteria ManyH, Urine Opiates Screen Negative, Urine Barbiturates Screen Negative, Phencyclidine (PCP) Screen Negative, Urine Amphetamines Screen Negative, Urine Benzodiazepines Screen Negative, Urine Cocaine Screen PositiveH , Urine Marijuana (THC) Screen PositiveH 11/17/18 06:45: White Blood Count 5.5, Red Blood Count 3.94L, Hemoglobin 10.2L, Hematocrit 32.6L , Mean Corpuscular Volume 83, Mean Corpuscular Hemoglobin 25.9L, Mean Corpuscular Hemoglobin Concent 31.2L, Red Cell Distribution Width 15.7H, Platelet Count 222, Mean Platelet Volume 7.3, Neutrophils (%) (Auto) , Lymphocytes (%) (Auto) , Monocytes (%) (Auto) , Eosinophils (%) (Auto) , Basophils (%) (Auto) , Sodium Level 143, Potassium Level 4.2, Chloride Level 107 , Carbon Dioxide Level 29, Anion Gap 7, Blood Urea Nitrogen 25H, Creatinine 1.0 , Estimat Glomerular Filtration Rate > 60, Glucose Level 86, Calcium Level 9.2, Total Bilirubin 0.2, Aspartate Amino Transf (AST/SGOT) 14L, Alanine Aminotransferase (ALT/SGPT) 20, Alkaline Phosphatase 70, Total Protein 7.0, Albumin 2.8L, Globulin 4.2, Albumin/Globulin Ratio 0.7L, Neutrophils % (Manual) [Pending], Lymphocytes % (Manual) [Pending], Platelet Estimate [Pending], Platelet Morphology [Pending] Height (Feet): 6 Height (Inches): 3.00 Weight (Pounds): 379 Objective General Appearance: no apparent distress, alert EENT: PERRL/EOMI Neck: normal alignment, supple Cardiovascular: normal rate, regular rhythm Respiratory/Chest: decreased breath sounds Abdomen: soft Extremities: non-tender Edema: moderate edema Neurologic: alert, oriented x 3 Skin: warm/dry Leonel Singer Nov 17, 2018 08:49
--- NOTE | 2018-11-17 09:40 | Consultation ---
Consult Note Consult Note DATE OF CONSULTATION: 11/17/2018 PULMONARY CONSULTATION CONSULTING PHYSICIAN: Rashad Haji M.D. REFERRING PHYSICIAN: Brittney Shepard M.D. REASON FOR CONSULTATION: Shortness of breath. HISTORY OF PRESENT ILLNESS: The patient is a 63-year-old male with multiple admissions for CHF and COPD, recently discharged after p/w recurrent NELLIE, admitted for diuresis. His breathing is @ baseline. No F/C/CP/SOB/N/V/D/C/ abdominal pain/urinary complaints. He states that post D/C he travelled to [place] where he had MJ laced with cocaine, he states he was compliant with his medications. PAST MEDICAL HISTORY: 1. Congestive heart failure. 2. Obesity. 3. Likely THERON. 4. Asthma. 5. Hypertension. 6. Anemia. 7. Protein-calorie malnutrition. ALLERGIES: Penicillin and tramadol. Active Scripts Medications Dose Route/Sig Max Daily Dose Days Date Category Dose Instructions Lasix* (Furosemide) 20 Mg Tablet 10 Mg ORAL DAILY 11/16/18 Reported Albuterol Sulfate Hhn* (Albuterol Sulfate) 2.5 Mg/3 Ml Vial.neb 3 Ml INH Q6H PRN 07/30/18 Reported Iron (Ferrous Sulfate) 325 Mg Tablet Unknown Dose PO 07/21/18 Reported [place] 10-325* (Acetaminophen/Hydrocodone Bitart) 1 Each Tablet 1 Tab ORAL Q4H PRN 06/23/18 Reported PRN PAIN Zocor (Simvastatin) 20 Mg Tablet 20 Mg ORAL BEDTIME 06/23/18 Reported Benazepril Hcl* (Benazepril HCl) 20 Mg Tablet 10 Mg ORAL BID 03/30/18 Reported Singulair* (Montelukast Sodium) 10 Mg Tablet 10 Mg ORAL DAILY 08/31/17 Reported Aspirin* (Aspirin) 81 Mg Tab.chew 81 Mg ORAL DAILY 08/31/17 Reported SOCIAL HISTORY: No tobacco, alcohol, or drug use. FAMILY HISTORY: Noncontributory. REVIEW OF SYSTEMS: Negative other than history of present illness. PHYSICAL EXAMINATION: Last 24 Hour Vital Signs Date Time Temp Pulse Resp B/P (MAP) Pulse Ox O2 Delivery O2 Flow Rate FiO2 11/17/18 08:35 119/66 11/17/18 04:00 98.4 76 18 110/65 (80) 100 11/17/18 00:00 98.6 71 20 106/52 (70) 99 11/16/18 21:02 82 20 Room Air 11/16/18 21:00 Room Air 11/16/18 20:00 97.8 82 20 106/63 (77) 98 11/16/18 17:53 120/60 11/16/18 16:51 Room Air 11/16/18 16:09 96.5 84 20 120/60 98 Room Air 11/16/18 16:08 96.5 82 19 117/69 99 Room Air 11/16/18 15:19 96.5 11/16/18 14:52 84 20 120/60 98 Room Air 11/16/18 14:30 88 22 Room Air 11/16/18 14:24 96.4 88 22 100/55 95 Room Air GENERAL: He is a well-developed, well-nourished male, in no acute distress. Awake, alert, and oriented x3. HEENT: Normocephalic and atraumatic. Oropharynx clear with moist mucous membranes. NECK: Supple without lymphadenopathy. JVP is elevated. CHEST: Clear. Decreased at the bases. No wheezing. HEART: Regular rhythm. ABDOMEN: Soft and nondistended. EXTREMITIES: No cyanosis, clubbing, 2+ NELLIE ANCILLARY DATA: CXR: NAD 08/22/18 CT CHEST: Findings: The lungs are clear. No pleural effusion identified. No mediastinal fluid or adenopathy appreciated. No acute fractures are identified. There are probable old rib fractures posteriorly on the left. Chest wall appears unremarkable. Visualized upper abdomen is unremarkable. 06/25/18 TTE: Mild left ventricular enlargement. Normal left ventricular systolic function and wall motion. Left ventricular ejection fraction estimated to be 60 %. Mild left ventricular hypertrophy. No evidence of pericardial effusion. Mild bi-atrial enlargement. Mild right ventricular enlargement. Focal aortic valve sclerosis with adequate cusp excursion. Thickened mitral valve leaflets with normal excursion. Mild mitral annulus and aortic root calcification. Normal pulmonic valve structure. Normal tricuspid valve structure. IVC dilated at 3.1 cm with physiological collapse, estimated RAP is 20 mmHg. A color flow and spectral Doppler study was performed and revealed: No aortic insufficiency. Trace mitral regurgitation. Mitral diastolic velocities suggest mild left ventricular diastolic dysfunction (Grade I). Trace tricuspid regurgitation. Tricuspid systolic velocities suggests peak right ventricular systolic pressure of 41 mmHg, consistent with mild pulmonary hypertension. Mild pulmonic regurgitation present. Laboratory Tests Test 11/16/18 14:45 11/16/18 14:55 11/17/18 06:45 White Blood Count 6.2 K/UL (4.8-10.8) 5.5 K/UL (4.8-10.8) Red Blood Count 3.89 M/UL (4.70-6.10) L 3.94 M/UL (4.70-6.10) L Hemoglobin 9.9 G/DL (14.2-18.0) L 10.2 G/DL (14.2-18.0) L Hematocrit 31.8 % (42.0-52.0) L 32.6 % (42.0-52.0) L Mean Corpuscular Volume 82 FL (80-99) 83 FL (80-99) Mean Corpuscular Hemoglobin 25.4 PG (27.0-31.0) L 25.9 PG (27.0-31.0) L Mean Corpuscular Hemoglobin Concent 31.0 G/DL (32.0-36.0) L 31.2 G/DL (32.0-36.0) L Red Cell Distribution Width 15.1 % (11.6-14.8) H 15.7 % (11.6-14.8) H Platelet Count 193 K/UL (150-450) 222 K/UL (150-450) Mean Platelet Volume 7.4 FL (6.5-10.1) 7.3 FL (6.5-10.1) Neutrophils (%) (Auto) 36.7 % (45.0-75.0) L % (45.0-75.0) Lymphocytes (%) (Auto) 48.8 % (20.0-45.0) H % (20.0-45.0) Monocytes (%) (Auto) 5.3 % (1.0-10.0) % (1.0-10.0) Eosinophils (%) (Auto) 7.6 % (0.0-3.0) H % (0.0-3.0) Basophils (%) (Auto) 1.6 % (0.0-2.0) % (0.0-2.0) Prothrombin Time 10.0 SEC (9.30-11.50) Prothromb Time International Ratio 0.9 (0.9-1.1) Activated Partial Thromboplast Time 25 SEC (23-33) Sodium Level 142 MMOL/L (136-145) 143 MMOL/L (136-145) Potassium Level 3.7 MMOL/L (3.5-5.1) 4.2 MMOL/L (3.5-5.1) Chloride Level 105 MMOL/L (98-107) 107 MMOL/L (98-107) Carbon Dioxide Level 26 MMOL/L (21-32) 29 MMOL/L (21-32) Anion Gap 11 mmol/L (5-15) 7 mmol/L (5-15) Blood Urea Nitrogen 28 mg/dL (7-18) H 25 mg/dL (7-18) H Creatinine 1.0 MG/DL (0.55-1.30) 1.0 MG/DL (0.55-1.30) Estimat Glomerular Filtration Rate > 60 mL/min (>60) > 60 mL/min (>60) Glucose Level 109 MG/DL (74-106) H 86 MG/DL (74-106) Calcium Level 9.3 MG/DL (8.5-10.1) 9.2 MG/DL (8.5-10.1) Ferritin 235 NG/ML (8-388) Total Bilirubin 0.2 MG/DL (0.2-1.0) 0.2 MG/DL (0.2-1.0) Aspartate Amino Transf (AST/SGOT) 13 U/L (15-37) L 14 U/L (15-37) L Alanine Aminotransferase (ALT/SGPT) 20 U/L (12-78) 20 U/L (12-78) Alkaline Phosphatase 73 U/L (46-116) 70 U/L (46-116) Total Creatine Kinase 142 U/L (26-308) Troponin I 0.007 ng/mL (0.000-0.056) Pro-B-Type Natriuretic Peptide 56 pg/mL (0-125) Total Protein 7.5 G/DL (6.4-8.2) 7.0 G/DL (6.4-8.2) Albumin 3.1 G/DL (3.4-5.0) L 2.8 G/DL (3.4-5.0) L Globulin 4.4 g/dL 4.2 g/dL Albumin/Globulin Ratio 0.7 (1.0-2.7) L 0.7 (1.0-2.7) L Urine Color Pale yellow Urine Appearance Clear Urine pH 5 (4.5-8.0) Urine Specific [place] 1.010 (1.005-1.035) Urine Protein Negative (NEGATIVE) Urine Glucose (UA) Negative (NEGATIVE) Urine Ketones Negative (NEGATIVE) Urine Blood Negative (NEGATIVE) Urine Nitrite Positive (NEGATIVE) H Urine Bilirubin Negative (NEGATIVE) Urine Urobilinogen Normal MG/DL (0.0-1.0) Urine Leukocyte Esterase 1+ (NEGATIVE) H Urine RBC 0-2 /HPF (0 - 0) H Urine WBC 2-4 /HPF (0 - 0) Urine Squamous Epithelial Cells Few /LPF (NONE/OCC) Urine Bacteria Many /HPF (NONE) H Urine Opiates Screen Negative (NEGATIVE) Urine Barbiturates Screen Negative (NEGATIVE) Phencyclidine (PCP) Screen Negative (NEGATIVE) Urine Amphetamines Screen Negative (NEGATIVE) Urine Benzodiazepines Screen Negative (NEGATIVE) Urine Cocaine Screen Positive (NEGATIVE) H Urine Marijuana (THC) Screen Positive (NEGATIVE) H Differential Total Cells Counted 100 Neutrophils % (Manual) 20 % (45-75) L Lymphocytes % (Manual) 64 % (20-45) H Monocytes % (Manual) 10 % (1-10) Eosinophils % (Manual) 6 % (0-3) H Basophils % (Manual) 0 % (0-2) Band Neutrophils 0 % (0-8) Platelet Estimate Adequate Platelet Morphology Normal Hypochromasia 1+ Anisocytosis 1+ Assessment/Plan ASSESSMENT: The patient is a 63-year-old male, lifelong nonsmoker with a history of congestive heart failure with diastolic dysfunction, pulmonary hypertension, obesity, likely obstructive sleep apnea, known pulmonary nodules, anemia and asthma, presenting with recurrent NELLIE PROBLEM LIST: 1. Asthma without evidence of exacerbation. 2. CHF with diastolic dysfunction, 3. Bilateral lower extremity edema, chronic 4. Known scattered bilateral subcentimeter nodules, stable on follow-up - per patient being followed up by PULMONARY @ [facility] 5. Anemia. 6. Hypertension. 7. Obesity. 8. Likely THERON. 9. MJ and cocaine use TREATMENT PLAN: 1. Optimize pulmonary hygiene/mobilize as tolerated. 2. PRN O2 to keep saturations greater than 90%. 3. PRN HHN's 4. Advair 250/50 5. Observe off antibiotics and steroids 6. Monitor volumes, diuresis per cards 7. Incentive spirometry 8. Continue to follow up with [facility] per the patient. 9. DVT prophylaxis, heparin subcutaneous. 10. Weight-loss diet and exercise discussed again. 11. Respiratory status stable, will sign off and follow peripherally. Please feel free to call with any questions or change in status. Rashad Haji MD Nov 17, 2018 09:40
--- NOTE | 2018-11-17 10:57 | Diagnostic Imaging Report ---
Indication: Chest pain Technique: One view of the chest Comparison: 10/30/2018 Findings: Lungs and pleural spaces are clear. Heart size is upper limit normal Impression: No acute process
[2018-11-17 12:00] VITALS: BP 123/59
--- NOTE | 2018-11-17 13:42 | General Progress Note ---
Assessment/Plan Assessment/Plan Assessment/Recs #. Anemia due to underlying iron deficiency. The patient on prior admission given IV iron. --> ferritin is reviewed and is 82, TIBC is approx 200, likely iron depleted --> cont to monitor and trend cbc --> Hgb goal >7, transfuse prn. --> Cont po iron daily --> no e/o hemolysis noted #. Borderline mediastinal lymphadenopathy, nonspecific etiology. Multiple small right lung nodules. --> Repeat CT scan in 6 to 12 months. --> f/u with [facility] #. Leukopenia in the past. Hepatitis and HIV is negative. --> Ultrasound showed no acute findings. --> Medications have been reviewed. --> Cont to monitor for improvement. --> given neupogen if anc <1000 #. Congestive heart failure exacerbation versus asthma. as per Dr. Crum. --> cards and pulm recs reviewed --> diuresis as per goal #. Chronic venous stasis lower extremities. --> wound recs prn #. Chronic obstructive pulmonary disease exacerbation. initially with shortness of breath. --> as per pul, hold off on steriods this admission #. Psych disorder as per Dr. Norman (seen before) #. DVT prophylaxis with heparin. Appreciate consultation greatly! Subjective Constitutional: Denies: no symptoms, chills, diaphoresis, fever, malaise, weakness, other HEENT: Denies: no symptoms, eye pain, blurred vision, tearing, double vision, ear pain, ear discharge, nose pain, nose congestion, throat pain, throat swelling, mouth pain, mouth swelling, other Cardiovascular: Denies: no symptoms, chest pain, edema, irregular heart rate, lightheadedness, palpitations, syncope, other Respiratory: Denies: no symptoms, cough, orthopnea, shortness of breath, SOB with excertion, SOB at rest, sputum, stridor, wheezing, other Gastrointestinal/Abdominal: Denies: no symptoms, abdomen distended, abdominal pain, black stools, tarry stools, blood in stool, constipated, diarrhea, difficulty swallowing, nausea, poor appetite, poor fluid intake, rectal bleeding , vomiting, other Genitourinary: Denies: no symptoms, burning, discharge, frequency, flank pain, hematuria, incontinence, pain, urgency, other Endocrine: Reports: no symptoms; Denies: excessive sweating, flushing, intolerance to cold, intolerance to heat, increased hunger, increased thirst, increased urine, unexplained weight gain, unexplained weight loss, other Hematologic/Lymphatic: Denies: no symptoms, anemia, easy bleeding, easy bruising, other Allergies: Coded Allergies: PENICILLINS (Verified Allergy, Unknown, 08/31/17) TRAMADOL (Verified Allergy, Unknown, 08/31/17) Subjective 11/17: no fevers or chills, no night sweats noted, less swelling lower ext today Objective Last 24 Hour Vital Signs Date Time Temp Pulse Resp B/P (MAP) Pulse Ox O2 Delivery O2 Flow Rate FiO2 11/17/18 12:00 98.2 64 20 123/59 (80) 98 11/17/18 09:00 Room Air 11/17/18 08:35 119/66 11/17/18 08:00 97.5 70 20 119/66 (83) 100 11/17/18 04:00 98.4 76 18 110/65 (80) 100 11/17/18 00:00 98.6 71 20 106/52 (70) 99 11/16/18 21:02 82 20 Room Air 11/16/18 21:00 Room Air 11/16/18 20:00 97.8 82 20 106/63 (77) 98 11/16/18 17:53 120/60 11/16/18 16:51 Room Air 11/16/18 16:09 96.5 84 20 120/60 98 Room Air 11/16/18 16:08 96.5 82 19 117/69 99 Room Air 11/16/18 15:19 96.5 11/16/18 14:52 84 20 120/60 98 Room Air 11/16/18 14:30 88 22 Room Air 11/16/18 14:24 96.4 88 22 100/55 95 Room Air Intake and Output 11/16/18 11/17/18 19:00 07:00 Intake Total 500 ml Output Total 900 ml Balance -400 ml Intake Oral 500 ml Output Urine Total 900 ml # Voids 1 # Bowel Movements 1 Laboratory Tests 11/16/18 14:45: White Blood Count 6.2, Red Blood Count 3.89L, Hemoglobin 9.9L, Hematocrit 31.8L , Mean Corpuscular Volume 82, Mean Corpuscular Hemoglobin 25.4L, Mean Corpuscular Hemoglobin Concent 31.0L, Red Cell Distribution Width 15.1H, Platelet Count 193, Mean Platelet Volume 7.4, Neutrophils (%) (Auto) 36.7L, Lymphocytes (%) (Auto) 48.8H, Monocytes (%) (Auto) 5.3, Eosinophils (%) (Auto) 7.6H, Basophils (%) (Auto) 1.6, Prothrombin Time 10.0, Prothromb Time International Ratio 0.9, Activated Partial Thromboplast Time 25, Sodium Level 142, Potassium Level 3.7, Chloride Level 105, Carbon Dioxide Level 26, Anion Gap 11, Blood Urea Nitrogen 28H, Creatinine 1.0, Estimat Glomerular Filtration Rate > 60, Glucose Level 109H, Calcium Level 9.3, Ferritin 235, Total Bilirubin 0.2, Aspartate Amino Transf (AST/SGOT) 13L, Alanine Aminotransferase (ALT/SGPT) 20, Alkaline Phosphatase 73, Total Creatine Kinase 142, Troponin I 0.007, Pro-B- Type Natriuretic Peptide 56, Total Protein 7.5, Albumin 3.1L, Globulin 4.4, Albumin/Globulin Ratio 0.7L 11/16/18 14:55: Urine Color Pale yellow, Urine Appearance Clear, Urine pH 5, Urine Specific [place] 1.010, Urine Protein Negative, Urine Glucose (UA) Negative, Urine Ketones Negative, Urine Blood Negative, Urine Nitrite PositiveH, Urine Bilirubin Negative, Urine Urobilinogen Normal, Urine Leukocyte Esterase 1+H, Urine RBC 0-2H, Urine WBC 2-4, Urine Squamous Epithelial Cells Few, Urine Bacteria ManyH, Urine Opiates Screen Negative, Urine Barbiturates Screen Negative, Phencyclidine (PCP) Screen Negative, Urine Amphetamines Screen Negative, Urine Benzodiazepines Screen Negative, Urine Cocaine Screen PositiveH , Urine Marijuana (THC) Screen PositiveH 11/17/18 06:45: White Blood Count 5.5, Red Blood Count 3.94L, Hemoglobin 10.2L, Hematocrit 32.6L , Mean Corpuscular Volume 83, Mean Corpuscular Hemoglobin 25.9L, Mean Corpuscular Hemoglobin Concent 31.2L, Red Cell Distribution Width 15.7H, Platelet Count 222, Mean Platelet Volume 7.3, Neutrophils (%) (Auto) , Lymphocytes (%) (Auto) , Monocytes (%) (Auto) , Eosinophils (%) (Auto) , Basophils (%) (Auto) , Sodium Level 143, Potassium Level 4.2, Chloride Level 107 , Carbon Dioxide Level 29, Anion Gap 7, Blood Urea Nitrogen 25H, Creatinine 1.0 , Estimat Glomerular Filtration Rate > 60, Glucose Level 86, Calcium Level 9.2, Total Bilirubin 0.2, Aspartate Amino Transf (AST/SGOT) 14L, Alanine Aminotransferase (ALT/SGPT) 20, Alkaline Phosphatase 70, Total Protein 7.0, Albumin 2.8L, Globulin 4.2, Albumin/Globulin Ratio 0.7L, Differential Total Cells Counted 100, Neutrophils % (Manual) 20L, Lymphocytes % (Manual) 64H, Monocytes % (Manual) 10, Eosinophils % (Manual) 6H, Basophils % (Manual) 0, Band Neutrophils 0, Platelet Estimate Adequate, Platelet Morphology Normal, Hypochromasia 1+, Anisocytosis 1+ Height (Feet): 6 Height (Inches): 3.00 Weight (Pounds): 379 Objective GENERAL: He is a well-developed, well-nourished male, in no acute distress. Awake, alert, and oriented x3. HEENT: Normocephalic and atraumatic. Oropharynx clear with moist mucous membranes. NECK: Supple without lymphadenopathy. JVP is elevated. CHEST: Clear. Decreased at the bases. No wheezing. HEART: Regular rhythm. ABDOMEN: Soft and nondistended. EXTREMITIES: No cyanosis, clubbing, 2+ Kade Veras MD Nov 17, 2018 13:42
--- NOTE | 2018-11-17 16:36 | Cardiac Electrophysiology PN ---
Subjective Subjective [id number] Objective Last 24 Hour Vital Signs Date Time Temp Pulse Resp B/P (MAP) Pulse Ox O2 Delivery O2 Flow Rate FiO2 11/17/18 12:00 98.2 64 20 123/59 (80) 98 11/17/18 09:00 Room Air 11/17/18 08:35 119/66 11/17/18 08:00 97.5 70 20 119/66 (83) 100 11/17/18 04:00 98.4 76 18 110/65 (80) 100 11/17/18 00:00 98.6 71 20 106/52 (70) 99 11/16/18 21:02 82 20 Room Air 11/16/18 21:00 Room Air 11/16/18 20:00 97.8 82 20 106/63 (77) 98 11/16/18 17:53 120/60 11/16/18 16:51 Room Air Intake and Output 11/16/18 11/17/18 19:00 07:00 Intake Total 500 ml Output Total 900 ml Balance -400 ml Intake Oral 500 ml Output Urine Total 900 ml # Voids 1 # Bowel Movements 1 Laboratory Tests Test 11/17/18 06:45 White Blood Count 5.5 K/UL (4.8-10.8) Red Blood Count 3.94 M/UL (4.70-6.10) L Hemoglobin 10.2 G/DL (14.2-18.0) L Hematocrit 32.6 % (42.0-52.0) L Mean Corpuscular Volume 83 FL (80-99) Mean Corpuscular Hemoglobin 25.9 PG (27.0-31.0) L Mean Corpuscular Hemoglobin Concent 31.2 G/DL (32.0-36.0) L Red Cell Distribution Width 15.7 % (11.6-14.8) H Platelet Count 222 K/UL (150-450) Mean Platelet Volume 7.3 FL (6.5-10.1) Neutrophils (%) (Auto) % (45.0-75.0) Lymphocytes (%) (Auto) % (20.0-45.0) Monocytes (%) (Auto) % (1.0-10.0) Eosinophils (%) (Auto) % (0.0-3.0) Basophils (%) (Auto) % (0.0-2.0) Differential Total Cells Counted 100 Neutrophils % (Manual) 20 % (45-75) L Lymphocytes % (Manual) 64 % (20-45) H Monocytes % (Manual) 10 % (1-10) Eosinophils % (Manual) 6 % (0-3) H Basophils % (Manual) 0 % (0-2) Band Neutrophils 0 % (0-8) Platelet Estimate Adequate Platelet Morphology Normal Hypochromasia 1+ Anisocytosis 1+ Sodium Level 143 MMOL/L (136-145) Potassium Level 4.2 MMOL/L (3.5-5.1) Chloride Level 107 MMOL/L (98-107) Carbon Dioxide Level 29 MMOL/L (21-32) Anion Gap 7 mmol/L (5-15) Blood Urea Nitrogen 25 mg/dL (7-18) H Creatinine 1.0 MG/DL (0.55-1.30) Estimat Glomerular Filtration Rate > 60 mL/min (>60) Glucose Level 86 MG/DL (74-106) Calcium Level 9.2 MG/DL (8.5-10.1) Total Bilirubin 0.2 MG/DL (0.2-1.0) Aspartate Amino Transf (AST/SGOT) 14 U/L (15-37) L Alanine Aminotransferase (ALT/SGPT) 20 U/L (12-78) Alkaline Phosphatase 70 U/L (46-116) Total Protein 7.0 G/DL (6.4-8.2) Albumin 2.8 G/DL (3.4-5.0) L Globulin 4.2 g/dL Albumin/Globulin Ratio 0.7 (1.0-2.7) L Microbiology Date/Time Source Procedure Growth Status 11/16/18 14:55 Urine,Clean Catch Urine Culture - Preliminary Gram Negative Bacillus 1 Resulted Prosper Crum MD Nov 17, 2018 16:36
--- NOTE | 2018-11-17 16:40 | NUR ---
NURSE NOTES: Patient became verbally abusive to SIGNAL MAINTAINER when she was trying to take his vital signs. Patient refused and SIGNAL MAINTAINER left the room. I entered and attempted to ascertain what had happened and the patient started yelling at me and became irate. Security was called and spoke to him. Patient was advised to to speak respectfully to staff and that he could refuse treatment if he so wishes but must maintain a civil tone.
[2018-11-17] MEDS: Montelukast 10mg tablet ORAL SCH (17:37)
--- NOTE | 2018-11-17 17:39 | NUR ---
NURSE NOTES: Patient refused 1630 vitals. Unable to give scheduled blood pressure medication as blood pressure is unknown. Patient refuses again.
[2018-11-17] MEDS: Wixela 250/50 Inhaler - 60 dose INH SCH (18:00)
--- NOTE | 2018-11-17 19:27 | NUR ---
HAND-OFF: Report given to LAKEISHA Rowley.
--- NOTE | 2018-11-17 19:55 | NUR ---
NURSE NOTES: Patient in bed, awake and alert, makes all needs known. IV in place. No complaints of pain at this time. No s/s respiratory distress noted. Bed in lowest position, call light within reach. Will continue to monitor.
[2018-11-17 20:57] VITALS: BP 140/57
[2018-11-18 00:54] VITALS: BP 136/74
--- NOTE | 2018-11-18 01:00 | Consultation ---
DATE OF CONSULTATION: 11/17/2018 CARDIOLOGY CONSULTATION CONSULTING PHYSICIAN: Prosper Crum M.D. REFERRING PHYSICIAN: Brittney Shepard M.D. REASON FOR CONSULTATION: Evaluation of lower extremity edema and shortness of breath. HISTORY OF PRESENT ILLNESS: The patient is a 63-year-old gentleman with multiple hospitalizations for lower extremity edema and shortness of breath. The patient has a history of congestive heart failure with diastolic dysfunction as well as chronic obstructive pulmonary disease. The patient has had multiple admissions to [facility] as well as at [facility]. The patient denies any chest pain. The patient was admitted and a Cardiology consultation was obtained for further evaluation and management. REVIEW OF SYSTEMS: Review of systems was negative other than what is mentioned in the history of present illness. PAST MEDICAL HISTORY: As mentioned above. FAMILY HISTORY: Noncontributory. SOCIAL HISTORY: He lives at home. He is compliant with his medication. PHYSICAL EXAMINATION: VITAL SIGNS: Show blood pressure 122/57, pulse 64, respirations 20, and temperature 98.2. HEAD AND NECK: Shows no JVD. LUNGS: Coarse rhonchi. CARDIOVASCULAR: Shows regular S1 and S2 with no regular gallop or murmur. ABDOMEN: Distended. EXTREMITIES: A 2+ pitting edema. LABORATORY DATA: His labs show white count of 5.5, hematocrit 10.7, hematocrit of 32.6, and platelet count is 222,000. Sodium is 142, potassium is 4.2, BUN of 25, creatinine 1.0, and glucose of 86. His urine toxicology screen is positive for cocaine and marijuana. ASSESSMENT AND PLAN: 1. Lower extremity edema in a patient with . Start the patient on Lasix 20 mg IV daily. The patient is to get dose of Lasix. 2. History of hypertension. On Lotensin 10 mg b.i.d. and Lasix. 3. Hyperlipidemia. On Lipitor. 4. Chronic obstructive pulmonary disease. 5. Morbid obesity. 6. Polysubstance abuse with cocaine and marijuana. Avoid beta-blockers. 7. Asthma. 8. Morbid obesity and obstructive sleep apnea. Thank you very much, Dr. Shepard, for allowing me to participate in the care of this patient. Please do not hesitate to contact me for any questions regarding my evaluation. Prosper Crum M.D. DR: AMEE JOB#: [id number] CC:
[2018-11-18] MEDS: HYDROcodone/Acetamin 10/325 tab ORAL PRN ×5 (01:39→22:01)
[2018-11-18 04:00] VITALS: BP 124/68
--- NOTE | 2018-11-18 05:58 | NUR ---
NURSE NOTES: PATIENT ASLEEP, NO DISTRESS, V/S STABLE.
--- NOTE | 2018-11-18 07:03 | NUR ---
HAND-OFF: Report given to SHAHZAD OSBORNE RN.
--- NOTE | 2018-11-18 07:40 | NUR ---
NURSE NOTES: Received patient on bed, awake. IV site intact and patent. Bed in low and locked position, call light in reach. No signs of respiratory distress, patient complains of pain. Will give PRN pain medication when due. Room board updated, will continue to monitor.
[2018-11-18 08:00] VITALS: BP 146/70
[2018-11-18] MEDS: Wixela 250/50 Inhaler - 60 dose INH SCH ×2 (08:43→18:00)
[2018-11-18] MEDS: Benazepril 10mg tab ORAL SCH ×2 (08:47→17:52)
[2018-11-18] MEDS: Aspirin Baby 81mg ORAL SCH (08:47)
--- NOTE | 2018-11-18 09:30 | History and Physical Report ---
DATE OF ADMISSION: 11/16/2018 NOTE: POOR AUDIO HISTORY OF PRESENT ILLNESS: The patient leg edema. The patient is noncompliant. Also, has chronic history of COPD. The patient denies shortness of breath. Does have occasional cough. Denies fever or chills. Does have orthopnea and worsening leg edema. Denies nausea, vomiting, or diarrhea. No fever or chills. PAST MEDICAL HISTORY: History of drug abuse, history of , leg edema, hypertension, iron-deficiency anemia, . PAST SURGICAL HISTORY: . . SOCIAL HISTORY: . REVIEW OF SYSTEMS: HEENT: Denies headaches. RESPIRATORY: Denies shortness of breath. . CARDIOVASCULAR: heartburn. GASTROINTESTINAL: Denies nausea, vomiting. EXTREMITIES: Reports worsening leg edema. FIELD APPLICATION ENGINEER: No change in vision or speech pattern. PHYSICAL EXAMINATION: VITAL SIGNS: Temperature 98.2 degrees, pulse is 64, and blood pressure 122/59. HEENT: PERRLA. NECK: Supple. No lymphadenopathy. CHEST: Clear to auscultation. CARDIOVASCULAR: Bradycardic. GASTROINTESTINAL: Soft, distended. Positive bowel sounds. No organomegaly. EXTREMITIES: 2+ pitting edema. Reflexes on both sides. NEUROLOGIC: Generalized weakness. LABORATORY DATA: WBC of 6.2, hemoglobin 9.9, and platelets of 193,000. Sodium 142, potassium 3.7, BUN of 28, creatinine 1, and glucose of 109. ASSESSMENT: 1. Worsening leg edema. 2. CHF. 3. Respiratory insufficiency. PLAN: I have asked Dr. Haji, Dr. Crum, and for the above-mentioned diagnoses and treatment control management. Brittney Shepard M.D. DR: ANAHY JOB#: [id number] CC:
--- NOTE | 2018-11-18 10:21 | Cardiac Electrophysiology PN ---
Assessment/Plan Assessment/Plan 1. Lower extremity edema and Lymphedema. On Lasix 20 mg IV daily. Refusing higher dose! 2. History of hypertension. On Lotensin 10 mg b.i.d. and Lasix. 3. Hyperlipidemia. On Lipitor. 4. Chronic obstructive pulmonary disease. 5. Morbid obesity. 6. Polysubstance abuse with cocaine and marijuana. Avoid beta-blockers. 7. Asthma. 8. Morbid obesity and obstructive sleep apnea. DW Dr Haji Subjective Subjective Complains of not diuresing enough but refusing to take higher dose of Lasix Objective Last 24 Hour Vital Signs Date Time Temp Pulse Resp B/P (MAP) Pulse Ox O2 Delivery O2 Flow Rate FiO2 11/18/18 08:47 146/70 11/18/18 08:43 78 18 98 Room Air 21 11/18/18 08:43 78 18 Room Air 11/18/18 08:43 Room Air 11/18/18 06:47 97.0 11/18/18 06:18 62 11/18/18 04:00 97.0 56 20 124/68 (86) 95 11/18/18 00:54 96.6 56 20 136/74 (94) 99 11/17/18 20:59 Room Air 11/17/18 20:57 97.0 71 20 140/57 (84) 100 11/17/18 20:35 Room Air 11/17/18 20:35 68 18 Room Air 11/17/18 20:35 68 18 98 Room Air 11/17/18 12:00 98.2 64 20 123/59 (80) 98 Intake and Output 11/17/18 11/18/18 19:00 07:00 Intake Total 500 ml 360 ml Output Total 600 ml 700 ml Balance -100 ml -340 ml Intake Oral 500 ml 360 ml Output Urine Total 600 ml 700 ml Microbiology Date/Time Source Procedure Growth Status 11/16/18 16:30 Nasal Nares MRSA Culture - Final NO METHICILLIN RESISTANT STAPH AUREUS... Complete 11/16/18 14:55 Urine,Clean Catch Urine Culture - Final Escherichia Coli Complete 11/16/18 16:30 Rectum VRE Culture - Final NO VANCOMYCIN RESISTANT ENTEROCOCCUS ... Complete 11/16/18 16:30 Rectum - Final NO CARBAPENEM-RESISTANT ENTEROBACTERI... Complete Objective HEAD AND NECK: No JVD. LUNGS: Coarse rhonchi. CARDIOVASCULAR: Regular S1 and S2 with no regular gallop or murmur. ABDOMEN: Distended. EXTREMITIES: A 2+ pitting edema. Prosper Crum MD Nov 18, 2018 10:21
[2018-11-18 12:00] VITALS: BP 136/56
--- NOTE | 2018-11-18 13:18 | NUR ---
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
[2018-11-18 16:00] VITALS: BP 136/71
[2018-11-18] MEDS: Montelukast 10mg tablet ORAL SCH (17:52)
--- NOTE | 2018-11-18 17:53 | NUR ---
NURSE NOTES: Patient refused scheduled lotensin. Risk versus benefits explained. Patient refused.
[2018-11-18 18:03] VITALS: BP 136/71
--- NOTE | 2018-11-18 19:19 | NUR ---
HAND-OFF: Report given to LAKEISHA Anne.
--- NOTE | 2018-11-18 19:47 | NUR ---
NURSE NOTES: Received report from LAKEISHA Florian. Patient A&Ox4, on room air. No signs of distress or labored breathing. IV intact, patent, and saline locked. Bed in lowest position with call light in reach. Will continue with plan of care.
--- NOTE | 2018-11-18 20:49 | General Progress Note ---
Assessment/Plan Assessment/Plan Assessment/Recs #. Anemia due to underlying iron deficiency. The patient on prior admission given IV iron. --> ferritin is reviewed and is 82, TIBC is approx 200, likely iron depleted --> cont to monitor and trend cbc --> Hgb goal >7, transfuse prn. --> Cont po iron daily --> no e/o hemolysis noted #. Borderline mediastinal lymphadenopathy, nonspecific etiology. Multiple small right lung nodules. --> Repeat CT scan in 6 to 12 months. --> f/u with [facility] Pul --> appreciate pulm recs #. Leukopenia in the past. Hepatitis and HIV is negative. --> Ultrasound showed no acute findings. --> Medications have been reviewed. --> Cont to monitor for improvement. --> given neupogen if anc <1000 #. Congestive heart failure exacerbation versus asthma. as per Dr. Crum. --> cards and pulm recs reviewed --> diuresis as per goal Cards #. Chronic venous stasis lower extremities. --> wound recs prn #. Chronic obstructive pulmonary disease exacerbation. initially with shortness of breath. --> as per pulm, hold off on steriods this admission #. Psych disorder as per Dr. Norman #. DVT prophylaxis with heparin. Appreciate consultation greatly! Subjective HEENT: Denies: no symptoms, eye pain, blurred vision, tearing, double vision, ear pain, ear discharge, nose pain, nose congestion, throat pain, throat swelling, mouth pain, mouth swelling, other Cardiovascular: Denies: no symptoms, chest pain, edema, irregular heart rate, lightheadedness, palpitations, syncope, other Respiratory: Denies: no symptoms, cough, orthopnea, shortness of breath, SOB with excertion, SOB at rest, sputum, stridor, wheezing, other Gastrointestinal/Abdominal: Denies: no symptoms, abdomen distended, abdominal pain, black stools, tarry stools, blood in stool, constipated, diarrhea, difficulty swallowing, nausea, poor appetite, poor fluid intake, rectal bleeding , vomiting, other Genitourinary: Denies: no symptoms, burning, discharge, frequency, flank pain, hematuria, incontinence, pain, urgency, other Neurologic/Psychiatric: Denies: no symptoms, anxiety, depressed, emotional problems, headache, numbness, paresthesia, pre-existing deficit, seizure, tingling, tremors, weakness, other Endocrine: Denies: no symptoms, excessive sweating, flushing, intolerance to cold, intolerance to heat, increased hunger, increased thirst, increased urine, unexplained weight gain, unexplained weight loss, other Hematologic/Lymphatic: Denies: no symptoms, anemia, easy bleeding, easy bruising, other Allergies: Coded Allergies: PENICILLINS (Verified Allergy, Unknown, 08/31/17) TRAMADOL (Verified Allergy, Unknown, 08/31/17) Subjective 11/17: no fevers or chills, no night sweats noted, less swelling lower ext today 11/18: refusing higher dose of lasix, seen by Dr. Crum, less swelling Objective Last 24 Hour Vital Signs Date Time Temp Pulse Resp B/P (MAP) Pulse Ox O2 Delivery O2 Flow Rate FiO2 11/18/18 19:34 Room Air 21 11/18/18 19:34 Room Air 21 11/18/18 19:32 68 18 Room Air 21 11/18/18 18:03 59 20 136/71 (92) 99 11/18/18 17:52 136/56 11/18/18 16:00 97.2 59 20 136/71 (92) 99 11/18/18 12:00 98.0 72 20 136/56 (82) 100 11/18/18 09:00 Room Air 11/18/18 08:47 146/70 11/18/18 08:43 78 18 98 Room Air 21 11/18/18 08:43 78 18 Room Air 11/18/18 08:43 Room Air 11/18/18 08:00 97.7 68 20 146/70 (95) 97 11/18/18 06:47 97.0 11/18/18 06:18 62 11/18/18 04:00 97.0 56 20 124/68 (86) 95 11/18/18 00:54 96.6 56 20 136/74 (94) 99 11/17/18 20:59 Room Air 11/17/18 20:57 97.0 71 20 140/57 (84) 100 Intake and Output 11/17/18 11/18/18 19:00 07:00 Intake Total 500 ml 360 ml Output Total 600 ml 700 ml Balance -100 ml -340 ml Intake Oral 500 ml 360 ml Output Urine Total 600 ml 700 ml Height (Feet): 6 Height (Inches): 3.00 Weight (Pounds): 379 Objective GENERAL: He is a well-developed, well-nourished male, in no acute distress. Awake, alert, and oriented x3. HEENT: Normocephalic and atraumatic. Oropharynx clear with moist mucous membranes. NECK: Supple without lymphadenopathy. JVP is elevated. CHEST: Clear. Decreased at the bases. No wheezing. HEART: Regular rhythm. ABDOMEN: Soft and nondistended. EXTREMITIES: No cyanosis, clubbing, 2+ Kade Veras MD Nov 18, 2018 20:49
[2018-11-18] MEDS: Heparin 5000 units/ml inj SUBQ SCH (21:00)
--- NOTE | 2018-11-18 21:30 | Cardiology Report ---
APPROVED REPORT EKG Measurement Heart [id number] OK [id number] Normal sinus rhythm Cannot rule out Anterior infarct, age undetermined Abnormal ECG
--- NOTE | 2018-11-18 21:58 | General Progress Note ---
Assessment/Plan Problem List: (1) Edema ICD Codes: R60.9 - Edema, unspecified SNOMED: 909104547, 784970705 (2) Pain ICD Codes: R52 - Pain, unspecified SNOMED: 08802234 (3) CHF exacerbation ICD Codes: I50.9 - Heart failure, unspecified SNOMED: 86089885 (4) CHF (congestive heart failure) ICD Codes: I50.9 - Heart failure, unspecified SNOMED: 87234276 (5) Cocaine abuse ICD Codes: F14.10 - Cocaine abuse, uncomplicated SNOMED: 16013982 (6) Edema ICD Codes: R60.9 - Edema, unspecified SNOMED: 119003327, 169505154 Status: progressing Assessment/Plan afebrile leg edema chf htn copd chronic pain obesity h/o of noncompliance Subjective ROS Limited/Unobtainable: Yes Allergies: Coded Allergies: PENICILLINS (Verified Allergy, Unknown, 08/31/17) TRAMADOL (Verified Allergy, Unknown, 08/31/17) Objective Last 24 Hour Vital Signs Date Time Temp Pulse Resp B/P (MAP) Pulse Ox O2 Delivery O2 Flow Rate FiO2 11/18/18 19:34 Room Air 21 11/18/18 19:34 Room Air 21 11/18/18 19:32 68 18 Room Air 21 11/18/18 18:03 59 20 136/71 (92) 99 11/18/18 17:52 136/56 11/18/18 16:00 97.2 59 20 136/71 (92) 99 11/18/18 12:00 98.0 72 20 136/56 (82) 100 11/18/18 09:00 Room Air 11/18/18 08:47 146/70 11/18/18 08:43 78 18 98 Room Air 21 11/18/18 08:43 78 18 Room Air 11/18/18 08:43 Room Air 11/18/18 08:00 97.7 68 20 146/70 (95) 97 11/18/18 06:47 97.0 11/18/18 06:18 62 11/18/18 04:00 97.0 56 20 124/68 (86) 95 11/18/18 00:54 96.6 56 20 136/74 (94) 99 Intake and Output 11/17/18 11/18/18 18:59 06:59 Intake Total 500 ml 360 ml Output Total 600 ml 700 ml Balance -100 ml -340 ml Intake Oral 500 ml 360 ml Output Urine Total 600 ml 700 ml Height (Feet): 6 Height (Inches): 3.00 Weight (Pounds): 379 Neck: supple Cardiovascular: normal rate Respiratory/Chest: lungs clear Abdomen: soft Edema: severe edema, pitting Brittney Shepard MD Nov 18, 2018 21:58
[2018-11-19] MEDS: HYDROcodone/Acetamin 10/325 tab ORAL PRN ×4 (04:11→22:12)
--- NOTE | 2018-11-19 07:31 | NUR ---
NURSE NOTES: Patient alert x4, on room air, no sign of shortness of breath, no sign of distress; IV RFA flushes well; urnial within reach; bed at lowest position, side rails up x2, breaks engaged; call light within reach. will keep on monitoring.
--- NOTE | 2018-11-19 07:46 | NUR ---
HAND-OFF: Report given to LAKEISHA Holguin.
[2018-11-19 08:00] VITALS: BP 107/76
[2018-11-19] MEDS: Wixela 250/50 Inhaler - 60 dose INH SCH ×2 (08:20→19:50)
[2018-11-19] MEDS: Benazepril 10mg tab ORAL SCH ×2 (08:50→17:12)
[2018-11-19] MEDS: Aspirin Baby 81mg ORAL SCH (08:50)
[2018-11-19] MEDS: Heparin 5000 units/ml inj SUBQ SCH ×2 (08:55→21:00)
[2018-11-19 12:00] VITALS: BP 145/70
--- NOTE | 2018-11-19 13:32 | General Progress Note ---
Assessment/Plan Problem List: (1) Edema ICD Codes: R60.9 - Edema, unspecified SNOMED: 714358283, 000244094 (2) Pain ICD Codes: R52 - Pain, unspecified SNOMED: 81220249 (3) CHF exacerbation ICD Codes: I50.9 - Heart failure, unspecified SNOMED: 46969308 (4) CHF (congestive heart failure) ICD Codes: I50.9 - Heart failure, unspecified SNOMED: 42184029 (5) Cocaine abuse ICD Codes: F14.10 - Cocaine abuse, uncomplicated SNOMED: 31508543 (6) Edema ICD Codes: R60.9 - Edema, unspecified SNOMED: 550049141, 201203710 Qualifiers: Qualified Codes: R60.0 - Localized edema Status: progressing Assessment/Plan leg edema is improving afebrile chf dependent on pain meds htn copd chronic pain obesity h/o of noncompliance Subjective ROS Limited/Unobtainable: Yes Allergies: Coded Allergies: PENICILLINS (Verified Allergy, Unknown, 08/31/17) TRAMADOL (Verified Allergy, Unknown, 08/31/17) Objective Last 24 Hour Vital Signs Date Time Temp Pulse Resp B/P (MAP) Pulse Ox O2 Delivery O2 Flow Rate FiO2 11/19/18 12:00 98.0 60 19 145/70 (95) 97 11/19/18 09:21 97.1 11/19/18 09:00 Room Air 11/19/18 08:50 107/76 11/19/18 08:20 Room Air 21 11/19/18 08:20 Room Air 21 11/19/18 08:00 97.1 71 18 107/76 (86) 99 11/19/18 07:53 71 18 Room Air 21 11/18/18 21:00 Room Air 11/18/18 19:34 Room Air 21 11/18/18 19:34 Room Air 21 11/18/18 19:32 68 18 Room Air 21 11/18/18 18:03 59 20 136/71 (92) 99 11/18/18 17:52 136/56 11/18/18 16:00 97.2 59 20 136/71 (92) 99 Intake and Output 11/18/18 11/19/18 19:00 07:00 Intake Total 1490 ml Output Total 2400 ml 2100 ml Balance -910 ml -2100 ml Intake Oral 1490 ml Output Urine Total 2400 ml 2100 ml # Voids 4 Height (Feet): 6 Height (Inches): 3.00 Weight (Pounds): 152 Neck: supple Cardiovascular: normal rate Respiratory/Chest: lungs clear Brittney Shepard MD Nov 19, 2018 13:32
--- NOTE | 2018-11-19 14:47 | NUR ---
RD ASSESSMENT & RECOMMENDATIONS SEE CARE ACTIVITY FOR COMPLETE ASSESSMENT DAILY ESTIMATED NEEDS: Needs based on cardiac, pulmonary, obesity, 100.6kg adj 20-25 kcals/kg [id number] total kcals 1-1.5 g protein/kg 101-151 g total protein Fluid per MD/ on lasix NUTRITION DIAGNOSIS: * Decreased sodium and fat intake needs R/T cardiac hx as evidenced by CHF dx, BLE edema, on diuretics, w/ BMI >35 at this time. PO DIET RECOMMENDATIONS: Maintain CARDIAC DIET ADDITIONAL RECOMMENDATIONS: * Daily standing wt or calibrated bedscale wt - CHF dx, on diuretics -> CURRENT WT PER EMR IS INACCURATE: 152# vs 152KG * Diet edu on Low Na diet provided on past admissions * Add HIGH PROTEIN snacks BID in b/w meals * Monitor lytes daily, replete as needed- on diuretics .
[2018-11-19 16:00] VITALS: BP 160/76
--- NOTE | 2018-11-19 16:02 | Cardiac Electrophysiology PN ---
Assessment/Plan Assessment/Plan 1. Lower extremity edema and Lymphedema. On Lasix 20 mg IV daily. Refusing higher dose! 2. History of hypertension. On Lotensin 10 mg b.i.d. and Lasix. 3. Hyperlipidemia. On Lipitor. 4. Chronic obstructive pulmonary disease. 5. Morbid obesity. 6. Polysubstance abuse with cocaine and marijuana. Avoid beta-blockers. 7. Asthma. 8. Morbid obesity and obstructive sleep apnea. Subjective Subjective Diuresing gently on LAsix 40 iv Objective Last 24 Hour Vital Signs Date Time Temp Pulse Resp B/P (MAP) Pulse Ox O2 Delivery O2 Flow Rate FiO2 11/19/18 15:16 98.0 11/19/18 12:00 98.0 60 19 145/70 (95) 97 11/19/18 09:00 Room Air 11/19/18 08:50 107/76 11/19/18 08:20 Room Air 21 11/19/18 08:20 Room Air 21 11/19/18 08:00 97.1 71 18 107/76 (86) 99 11/19/18 07:53 71 18 Room Air 21 11/18/18 21:00 Room Air 11/18/18 19:34 Room Air 21 11/18/18 19:34 Room Air 21 11/18/18 19:32 68 18 Room Air 21 11/18/18 18:03 59 20 136/71 (92) 99 11/18/18 17:52 136/56 Intake and Output 11/18/18 11/19/18 19:00 07:00 Intake Total 1490 ml Output Total 2400 ml 2100 ml Balance -910 ml -2100 ml Intake Oral 1490 ml Output Urine Total 2400 ml 2100 ml # Voids 4 Microbiology Date/Time Source Procedure Growth Status 11/16/18 16:30 Nasal Nares MRSA Culture - Final NO METHICILLIN RESISTANT STAPH AUREUS... Complete 11/16/18 16:30 Rectum VRE Culture - Final NO VANCOMYCIN RESISTANT ENTEROCOCCUS ... Complete 11/16/18 16:30 Rectum - Final NO CARBAPENEM-RESISTANT ENTEROBACTERI... Complete Objective HEAD AND NECK: No JVD. LUNGS: Coarse rhonchi. CARDIOVASCULAR: Regular S1 and S2 with no regular gallop or murmur. ABDOMEN: Distended. EXTREMITIES: A 2+ pitting edema. Prosper Crum MD Nov 19, 2018 16:02
--- NOTE | 2018-11-19 16:20 | NUR ---
LEARNING SPECIALISTRETORT LOAD EXPEDITER SI:EDEMA VS: BP160/76, P 56, T 98.9, RR 20, SpO2 98 IS: LOTENSIN 10mg LIPITOR 10mg NORCO 10/325 1 tab SINGULAIR 10mg FLUTICASONE 1 Puff INH LASIX 20mg IV MED/SURG STATUS
[2018-11-19] MEDS: Montelukast 10mg tablet ORAL SCH (17:12)
--- NOTE | 2018-11-19 19:35 | NUR ---
HAND-OFF: Report given to LAKEISHA Shelton.
[2018-11-19 20:00] VITALS: BP 134/54
--- NOTE | 2018-11-19 21:09 | General Progress Note ---
Assessment/Plan Assessment/Plan Assessment/Recs #. Anemia due to underlying iron deficiency. The patient on prior admission given IV iron. --> ferritin is reviewed and is 82, TIBC is approx 200, likely iron depleted --> cont to monitor and trend cbc --> Hgb goal >7, transfuse prn. --> Cont po iron daily --> no e/o hemolysis noted --> trend hgb 9.9-->10.2 #. Borderline mediastinal lymphadenopathy, nonspecific etiology. Multiple small right lung nodules. --> Repeat CT scan in 6 to 12 months. --> f/u with [facility] Pul --> appreciate pulm recs #. Leukopenia in the past. Hepatitis and HIV is negative. --> Ultrasound showed no acute findings. --> Medications have been reviewed. --> Cont to monitor for improvement. --> given neupogen if anc <1000 #. Congestive heart failure exacerbation versus asthma. as per Dr. Crum. --> cards and pulm recs reviewed --> diuresis as per goal Cards #. Chronic venous stasis lower extremities. --> wound recs prn #. Chronic obstructive pulmonary disease exacerbation. initially with shortness of breath. --> as per pulm, hold off on steriods this admission #. Psych disorder as per Dr. Norman #. DVT prophylaxis with heparin. Appreciate consultation greatly! Subjective Constitutional: Denies: no symptoms, chills, diaphoresis, fever, malaise, weakness, other HEENT: Denies: no symptoms, eye pain, blurred vision, tearing, double vision, ear pain, ear discharge, nose pain, nose congestion, throat pain, throat swelling, mouth pain, mouth swelling, other Respiratory: Denies: no symptoms, cough, orthopnea, shortness of breath, SOB with excertion, SOB at rest, sputum, stridor, wheezing, other Gastrointestinal/Abdominal: Denies: no symptoms, abdomen distended, abdominal pain, black stools, tarry stools, blood in stool, constipated, diarrhea, difficulty swallowing, nausea, poor appetite, poor fluid intake, rectal bleeding , vomiting, other Genitourinary: Denies: no symptoms, burning, discharge, frequency, flank pain, hematuria, incontinence, pain, urgency, other Neurologic/Psychiatric: Denies: no symptoms, anxiety, depressed, emotional problems, headache, numbness, paresthesia, pre-existing deficit, seizure, tingling, tremors, weakness, other Allergies: Coded Allergies: PENICILLINS (Verified Allergy, Unknown, 08/31/17) TRAMADOL (Verified Allergy, Unknown, 08/31/17) Subjective 4/: no fevers or chills, no night sweats noted, less swelling lower ext today 4/: refusing higher dose of lasix, seen by Dr. Crum, less swelling 11/19: symptoms better, though complaining legs not much better, no f/c Objective Last 24 Hour Vital Signs Date Time Temp Pulse Resp B/P (MAP) Pulse Ox O2 Delivery O2 Flow Rate FiO2 11/19/18 19:50 Room Air 21 11/19/18 19:50 Room Air 21 11/19/18 19:50 67 18 Room Air 21 11/19/18 17:12 160/76 11/19/18 16:00 98.9 56 20 160/76 (104) 98 11/19/18 15:16 98.0 11/19/18 12:00 98.0 60 19 145/70 (95) 97 11/19/18 09:00 Room Air 11/19/18 08:50 107/76 11/19/18 08:20 Room Air 21 11/19/18 08:20 Room Air 21 11/19/18 08:00 97.1 71 18 107/76 (86) 99 11/19/18 07:53 71 18 Room Air 21 Intake and Output 11/18/18 11/19/18 18:59 06:59 Intake Total 1490 ml Output Total 2400 ml 2100 ml Balance -910 ml -2100 ml Intake Oral 1490 ml Output Urine Total 2400 ml 2100 ml # Voids 4 Height (Feet): 6 Height (Inches): 3.00 Weight (Pounds): 152 Objective GENERAL: He is a well-developed, well-nourished male, in no acute distress. Awake, alert, and oriented x3. HEENT: Normocephalic and atraumatic. Oropharynx clear with moist mucous membranes. NECK: Supple without lymphadenopathy. JVP is elevated. CHEST: Clear. Decreased at the bases. No wheezing. HEART: Regular rhythm. ABDOMEN: Soft and nondistended. EXTREMITIES: No cyanosis, clubbing, 2+ Kade Veras MD Nov 19, 2018 21:08
[2018-11-20] VITALS: BP 113/64
[2018-11-20] MEDS: HYDROcodone/Acetamin 10/325 tab ORAL PRN ×5 (03:46→20:36)
--- NOTE | 2018-11-20 07:15 | NUR ---
HAND-OFF: Report given to LAKEISHA Holguin.
--- NOTE | 2018-11-20 07:25 | NUR ---
NURSE NOTES: Patient alert x4, on room air, no sign of shortness of breath; no sign of chest pain; IV Right For Arm, flushes well; urinal within reach; will give pain meds as scheduled; bed at lowest position, side rails up x2, breaks engaged; call light within reach.
[2018-11-20 08:00] VITALS: BP 155/76
[2018-11-20] MEDS: Heparin 5000 units/ml inj SUBQ SCH ×2 (08:00→21:00)
[2018-11-20] MEDS: Benazepril 10mg tab ORAL SCH ×2 (08:11→17:08)
[2018-11-20] MEDS: Aspirin Baby 81mg ORAL SCH (08:11)
[2018-11-20] MEDS: Wixela 250/50 Inhaler - 60 dose INH SCH ×2 (09:00→18:00)
--- NOTE | 2018-11-20 09:20 | NUR ---
NURSE NOTES: Patient refused breathing treatment.
[2018-11-20 12:00] VITALS: BP 154/74
--- NOTE | 2018-11-20 15:06 | NUR ---
SHEET IRONWORKERDIRECTOR CONTENT MARKETING SI:EDEMA VS: BP 155/76, P 59, T 97.4, RR 19, SpO2 100 IS:LOTENSIN 10mg LIPITOR 10mg NORCO 10/325 1tab SINGULAIR 10mg ADVAIR 1puff INH LASIX 20mg IV HEPARIN SUBQ MED/SURG STATUS
[2018-11-20 16:00] VITALS: BP 139/79
--- NOTE | 2018-11-20 16:32 | General Progress Note ---
Assessment/Plan Assessment/Plan Assessment/Recs #. Anemia due to underlying iron deficiency. The patient on prior admission given IV iron. --> ferritin is reviewed and is 82, TIBC is approx 200, likely iron depleted --> cont to monitor and trend cbc --> Hgb goal >7, transfuse prn. --> Cont po iron daily --> no e/o hemolysis noted --> trend hgb 9.9-->10.2 #. Borderline mediastinal lymphadenopathy, nonspecific etiology. Multiple small right lung nodules. --> Repeat CT scan in 6 to 12 months. --> f/u with [facility] Pul --> appreciate pulm recs #. Leukopenia in the past. Hepatitis and HIV is negative. --> Ultrasound showed no acute findings. --> Medications have been reviewed. --> Cont to monitor for improvement. --> given neupogen if anc <1000 #. Congestive heart failure exacerbation versus asthma. as per Dr. Crum. --> cards and pulm recs reviewed --> diuresis as per goal Cards #. Chronic venous stasis lower extremities. --> wound recs prn #. Chronic obstructive pulmonary disease exacerbation. initially with shortness of breath. --> as per pulm, hold off on steriods this admission #. Psych disorder as per Dr. Norman #. DVT prophylaxis with heparin. Appreciate consultation greatly! Subjective Cardiovascular: Denies: no symptoms, chest pain, edema, irregular heart rate, lightheadedness, palpitations, syncope, other Respiratory: Denies: no symptoms, cough, orthopnea, shortness of breath, SOB with excertion, SOB at rest, sputum, stridor, wheezing, other Gastrointestinal/Abdominal: Denies: no symptoms, abdomen distended, abdominal pain, black stools, tarry stools, blood in stool, constipated, diarrhea, difficulty swallowing, nausea, poor appetite, poor fluid intake, rectal bleeding , vomiting, other Genitourinary: Denies: no symptoms, burning, discharge, frequency, flank pain, hematuria, incontinence, pain, urgency, other Endocrine: Denies: no symptoms, excessive sweating, flushing, intolerance to cold, intolerance to heat, increased hunger, increased thirst, increased urine, unexplained weight gain, unexplained weight loss, other Hematologic/Lymphatic: Denies: no symptoms, anemia, easy bleeding, easy bruising, other Allergies: Coded Allergies: PENICILLINS (Verified Allergy, Unknown, 08/31/17) TRAMADOL (Verified Allergy, Unknown, 08/31/17) Subjective 4/1: no fevers or chills, no night sweats noted, less swelling lower ext today 4/2: refusing higher dose of lasix, seen by Dr. Crum, less swelling 11/19: symptoms better, though complaining legs not much better, no f/c 11/20: less edema of the lower extremities though noncomplaint with lasix Objective Last 24 Hour Vital Signs Date Time Temp Pulse Resp B/P (MAP) Pulse Ox O2 Delivery O2 Flow Rate FiO2 11/20/18 16:00 97.5 58 20 139/79 (99) 98 11/20/18 12:53 97.4 11/20/18 12:00 97.4 59 19 154/74 (100) 100 11/20/18 09:13 Room Air 21 11/20/18 09:13 Room Air 21 11/20/18 09:00 Room Air 11/20/18 08:16 69 18 Room Air 21 11/20/18 08:11 155/76 11/20/18 08:00 97.7 61 18 155/76 (102) 99 11/20/18 00:00 97.7 64 20 113/64 (80) 95 11/19/18 21:00 Room Air 11/19/18 20:00 97.9 65 20 134/54 (80) 97 11/19/18 19:50 Room Air 21 11/19/18 19:50 Room Air 21 11/19/18 19:50 67 18 Room Air 21 11/19/18 17:12 160/76 Intake and Output 11/19/18 11/20/18 19:00 07:00 Intake Total 1440 ml Output Total 1400 ml 2000 ml Balance 40 ml -2000 ml Intake Oral 1440 ml Output Urine Total 1400 ml 2000 ml # Voids 3 Height (Feet): 6 Height (Inches): 3.00 Weight (Pounds): 152 Objective GENERAL: He is a well-developed, well-nourished male, in no acute distress. Awake, alert, and oriented x3. HEENT: Normocephalic and atraumatic. Oropharynx clear with moist mucous membranes. NECK: Supple without lymphadenopathy. JVP is elevated. CHEST: Clear. Decreased at the bases. No wheezing. HEART: Regular rhythm. ABDOMEN: Soft and nondistended. EXTREMITIES: No cyanosis, clubbing, 2+ Kade Veras MD Nov 20, 2018 16:32
[2018-11-20] MEDS: Montelukast 10mg tablet ORAL SCH (16:37)
--- NOTE | 2018-11-20 16:58 | NUR ---
NURSE NOTES: Per MD Shepard patient gonna be discharged tomorrow.
--- NOTE | 2018-11-20 16:59 | Cardiac Electrophysiology PN ---
Assessment/Plan Assessment/Plan 1. Lower extremity edema and Lymphedema. On Lasix 20 mg IV daily. Refusing higher dose! 2. History of hypertension. On Lotensin 10 mg b.i.d. and Lasix. 3. Hyperlipidemia. On Lipitor. 4. Chronic obstructive pulmonary disease. 5. Morbid obesity. 6. Polysubstance abuse with cocaine and marijuana. Avoid beta-blockers. 7. Asthma. 8. Morbid obesity and obstructive sleep apnea. DW RN Subjective Subjective Diuresing on Lasix iv. Asking for pain meds Objective Last 24 Hour Vital Signs Date Time Temp Pulse Resp B/P (MAP) Pulse Ox O2 Delivery O2 Flow Rate FiO2 11/20/18 16:00 97.5 58 20 139/79 (99) 98 11/20/18 12:53 97.4 11/20/18 12:00 97.4 59 19 154/74 (100) 100 11/20/18 09:13 Room Air 21 11/20/18 09:13 Room Air 21 11/20/18 09:00 Room Air 11/20/18 08:16 69 18 Room Air 21 11/20/18 08:11 155/76 11/20/18 08:00 97.7 61 18 155/76 (102) 99 11/20/18 00:00 97.7 64 20 113/64 (80) 95 11/19/18 21:00 Room Air 11/19/18 20:00 97.9 65 20 134/54 (80) 97 11/19/18 19:50 Room Air 21 11/19/18 19:50 Room Air 21 11/19/18 19:50 67 18 Room Air 21 11/19/18 17:12 160/76 Intake and Output 11/19/18 11/20/18 19:00 07:00 Intake Total 1440 ml Output Total 1400 ml 2000 ml Balance 40 ml -2000 ml Intake Oral 1440 ml Output Urine Total 1400 ml 2000 ml # Voids 3 Objective HEAD AND NECK: No JVD. LUNGS: Coarse rhonchi. CARDIOVASCULAR: Regular S1 and S2 with no murmur. ABDOMEN: Distended. EXTREMITIES: A 2+ pitting edema. Prosper Crum MD Nov 20, 2018 16:59
--- NOTE | 2018-11-20 19:16 | NUR ---
HAND-OFF: Report given to LILLY Mckeon.
--- NOTE | 2018-11-20 19:17 | NUR ---
NURSE NOTES: RECEIVED PATIENT LYING IN BED, APPEAR TO BE ASLEEP, AWAKENED TO NAME, DENIES PAIN. ISOLATION PRECAUTIONS OBSERVED AT ALL TIMES. NO SIGNS AND SYMPTOMS OF ACUTE CARDIO RESPIRATORY DISTRESS/SHORTNESS OF BREATH, EDEMA TO BILATERAL LOWER EXTREMITIES SUBSIDING WELL, REFUSE ELEVATION. NO REPORT OF GI DISCOMFORT, ABDOMEN NON TENDER. URINAL AT BEDSIDE X2, EMPTIED 400ML YELLOW URINE. SIDE RAILS UP X2, BED IN LOWEST POSITION FOR SAFETY. ENCOURAGED PATIENT TO UTILIZE CALL LIGHT FOR ASSISTANCE, VERBALIZED UNDERSTANDING. NAD.
[2018-11-20 20:00] VITALS: BP 138/72
--- NOTE | 2018-11-20 21:59 | General Progress Note ---
Assessment/Plan Problem List: (1) Edema ICD Codes: R60.9 - Edema, unspecified SNOMED: 244212437, 004309819 (2) Pain ICD Codes: R52 - Pain, unspecified SNOMED: 59097658 (3) CHF exacerbation ICD Codes: I50.9 - Heart failure, unspecified SNOMED: 72225594 (4) CHF (congestive heart failure) ICD Codes: I50.9 - Heart failure, unspecified SNOMED: 15559763 (5) Cocaine abuse ICD Codes: F14.10 - Cocaine abuse, uncomplicated SNOMED: 67803248 (6) Edema ICD Codes: R60.9 - Edema, unspecified SNOMED: 226627758, 072757719 Qualifiers: Qualified Codes: R60.0 - Localized edema Status: progressing Assessment/Plan severe le edema no wheezing no sob dc in am chf dependent on pain meds htn chronic pain obesity h/o of noncompliance Subjective ROS Limited/Unobtainable: Yes Allergies: Coded Allergies: PENICILLINS (Verified Allergy, Unknown, 08/31/17) TRAMADOL (Verified Allergy, Unknown, 08/31/17) Objective Last 24 Hour Vital Signs Date Time Temp Pulse Resp B/P (MAP) Pulse Ox O2 Delivery O2 Flow Rate FiO2 11/20/18 20:38 Room Air 21 11/20/18 20:37 Room Air 21 11/20/18 20:36 71 18 Room Air 21 11/20/18 20:07 Room Air 11/20/18 20:00 98.5 69 18 138/72 (94) 96 11/20/18 17:08 97.5 11/20/18 17:08 139/79 11/20/18 16:00 97.5 58 20 139/79 (99) 98 11/20/18 12:00 97.4 59 19 154/74 (100) 100 11/20/18 09:13 Room Air 21 11/20/18 09:13 Room Air 21 11/20/18 09:00 Room Air 11/20/18 08:16 69 18 Room Air 21 11/20/18 08:11 155/76 11/20/18 08:00 97.7 61 18 155/76 (102) 99 11/20/18 00:00 97.7 64 20 113/64 (80) 95 Intake and Output 11/19/18 11/20/18 19:00 07:00 Intake Total 1440 ml Output Total 1400 ml 2000 ml Balance 40 ml -2000 ml Intake Oral 1440 ml Output Urine Total 1400 ml 2000 ml # Voids 3 Height (Feet): 6 Height (Inches): 3.00 Weight (Pounds): 152 Cardiovascular: normal rate Respiratory/Chest: lungs clear Abdomen: soft Brittney Shepard MD Nov 20, 2018 21:59
[2018-11-21] VITALS: BP 135/68
[2018-11-21] MEDS: HYDROcodone/Acetamin 10/325 tab ORAL PRN ×3 (00:29→08:35)
[2018-11-21 04:00] VITALS: BP 144/65
--- NOTE | 2018-11-21 06:27 | NUR ---
NURSE NOTES: RESTED WELL, NO SIGNIFICANT CHANGE OF CONDITION NOTED THROUGHOUT THE NIGHT. SAFETY MAINTAINED. NAD.
--- NOTE | 2018-11-21 07:30 | NUR ---
NURSE NOTES: RECEIVED PT IN BED, LYIING ON SEMI FOWLERS POSITION. BLE ELEVATED WITH PILLOWS TO ALLEVIATE EDEMA. NO ACUTE RESP DISTRESS NOTED. SIDERAILS ARE UP X3. CALL LIGHT IS WITHIN REACH. BED ALARM IS ACTIVATED. WILL CONT TO MONITOR.
--- NOTE | 2018-11-21 07:30 | NUR ---
HAND-OFF: Report given to LILLY MOTLEY.
[2018-11-21 08:00] VITALS: BP 159/78
[2018-11-21 08:34] VITALS: BP 159/78
[2018-11-21] MEDS: Benazepril 10mg tab ORAL SCH (08:34)
[2018-11-21] MEDS: Aspirin Baby 81mg ORAL SCH (08:34)
[2018-11-21] MEDS: Heparin 5000 units/ml inj SUBQ SCH (08:36)
[2018-11-21] MEDS: Wixela 250/50 Inhaler - 60 dose INH SCH (08:43)
--- NOTE | 2018-11-21 11:30 | NUR ---
NURSE NOTES: D/C HOME WITH DISCHARGE INSTRUCTIONS. REMOVED IV HEPLOCK. PERSONAL BELONGINGS REVIEWED AND NOTED S/T/D. INSTABLE CONDITION. VERIFIED HOME ADDRESS. TAB, [facility] WILL PROVIDE TRANSPORTATION. SKIN IS INTACT. NO ACUTE RESP DISTRESS NOTED. HE HAS HIS OWN WALKER.
--- NOTE | 2018-11-21 17:44 | General Progress Note ---
Assessment/Plan Assessment/Plan Assessment/Recs #. Anemia due to underlying iron deficiency. The patient on prior admission given IV iron. --> ferritin is reviewed and is 82, TIBC is approx 200, likely iron depleted --> cont to monitor and trend cbc --> Hgb goal >7, transfuse prn. --> Cont po iron daily --> no e/o hemolysis noted --> trend hgb 9.9-->10.2 #. Borderline mediastinal lymphadenopathy, nonspecific etiology. Multiple small right lung nodules. --> Repeat CT scan in 6 to 12 months. --> f/u with [facility] Pul --> appreciate pulm recs #. Leukopenia in the past. Hepatitis and HIV is negative. --> Ultrasound showed no acute findings. --> Medications have been reviewed. --> Cont to monitor for improvement. --> given neupogen if anc <1000 #. Congestive heart failure exacerbation versus asthma. as per Dr. Crum. --> cards and pulm recs reviewed --> diuresis as per goal Cards #. Chronic venous stasis lower extremities. --> wound recs prn #. Chronic obstructive pulmonary disease exacerbation. initially with shortness of breath. --> as per pulm, hold off on steriods this admission #. Psych disorder as per Dr. Norman #. DVT prophylaxis with heparin. Appreciate consultation greatly! Subjective HEENT: Denies: no symptoms, eye pain, blurred vision, tearing, double vision, ear pain, ear discharge, nose pain, nose congestion, throat pain, throat swelling, mouth pain, mouth swelling, other Respiratory: Denies: no symptoms, cough, orthopnea, shortness of breath, SOB with excertion, SOB at rest, sputum, stridor, wheezing, other Gastrointestinal/Abdominal: Denies: no symptoms, abdomen distended, abdominal pain, black stools, tarry stools, blood in stool, constipated, diarrhea, difficulty swallowing, nausea, poor appetite, poor fluid intake, rectal bleeding , vomiting, other Genitourinary: Denies: no symptoms, burning, discharge, frequency, flank pain, hematuria, incontinence, pain, urgency, other Neurologic/Psychiatric: Denies: no symptoms, anxiety, depressed, emotional problems, headache, numbness, paresthesia, pre-existing deficit, seizure, tingling, tremors, weakness, other Endocrine: Denies: no symptoms, excessive sweating, flushing, intolerance to cold, intolerance to heat, increased hunger, increased thirst, increased urine, unexplained weight gain, unexplained weight loss, other Hematologic/Lymphatic: Denies: no symptoms, anemia, easy bleeding, easy bruising, other Allergies: Coded Allergies: PENICILLINS (Verified Allergy, Unknown, 08/31/17) TRAMADOL (Verified Allergy, Unknown, 08/31/17) Subjective 4/1: no fevers or chills, no night sweats noted, less swelling lower ext today 4/2: refusing higher dose of lasix, seen by Dr. Crum, less swelling 4/: symptoms better, though complaining legs not much better, no f/c 11/20: less edema of the lower extremities though noncomplaint with lasix 4: dc home today, no f/c noted, less leg swelling Objective Last 24 Hour Vital Signs Date Time Temp Pulse Resp B/P (MAP) Pulse Ox O2 Delivery O2 Flow Rate FiO2 11/21/18 09:05 97.5 11/21/18 09:00 Room Air 11/21/18 08:48 79 20 Room Air 21 11/21/18 08:44 79 20 97 Room Air 21 11/21/18 08:44 80 20 98 Room Air 21 11/21/18 08:34 159/78 11/21/18 08:00 98.3 70 20 159/78 (105) 100 11/21/18 04:00 97.4 62 18 144/65 (91) 96 11/21/18 00:00 98.1 60 19 135/68 (90) 92 11/20/18 20:38 Room Air 21 11/20/18 20:37 Room Air 21 11/20/18 20:36 71 18 Room Air 21 11/20/18 20:07 Room Air 11/20/18 20:00 98.5 69 18 138/72 (94) 96 Intake and Output 11/20/18 11/21/18 19:00 07:00 Intake Total 600 ml 780 ml Output Total 2600 ml 2000 ml Balance -2000 ml -1220 ml Intake Oral 600 ml 780 ml Output Urine Total 2600 ml 2000 ml Height (Feet): 6 Height (Inches): 3.00 Weight (Pounds): 152 Objective GENERAL: He is a well-developed, well-nourished male, in no acute distress. Awake, alert, and oriented x3. HEENT: Normocephalic and atraumatic. Oropharynx clear with moist mucous membranes. NECK: Supple without lymphadenopathy. JVP is elevated. CHEST: Clear. Decreased at the bases. No wheezing. HEART: Regular rhythm. ABDOMEN: Soft and nondistended. EXTREMITIES: No cyanosis, clubbing, 2+ Kade Veras MD Nov 21, 2018 17:44
--- NOTE | 2018-11-24 13:03 | Discharge Summary ---
Discharge Summary Discharge Summary _ DATE OF ADMISSION: November 16, 2018 DATE OF DISCHARGE: November 21, 2018 DISCHARGED BY: Dr Shepard REASON FOR ADMISSION: [] 63 years old male with past medical history of COPD/asthma, hypertension, hypercholesterolemia, congestive heart failure, substance abuse/cocaine marijuana, anemia history of right ankle fracture in 2017 presented to emergency department with increased edema bilateral lower extremity. Patient is usually taking Lasix however recently he was travel to [place] and during the trip his legs became more swollen. Patient reported fleeting chest pain last night but denied any dyspnea on exertion or chronic chest pain. Patient denied fever and chills. Patient denied nausea vomiting diarrhea dysuria. Bilateral knee pain 10 out of 10 he denied calf pain. Upon evaluation vital signs were stable laboratory workup revealed no leukocytosis hemoglobin 9.9 hematocrit 31.8 stable electrolytes BUN 28 creatinine 1 stable LFT proBNP 56. Troponin negative urinalysis revealed no evidence of UTI. Urinalysis revealed many bacteria and pyuria. Urine toxicology screen was positive for cocaine and marijuana. EKG revealed normal sinus rhythm no acute ischemic changes. Chest x -ray revealed no acute cardiopulmonary pathology. Patient admitted for further management CONSULTANTS: inspector Dr. Metcalf neurologist pulmonary Dr.Naraghi LEVY specialist GI specialist mushroom cutter oil expert/oncologist Dr. Hoffmann surgery psychiatrist HOSPITAL COURSE: Patient admitted. Cardiology consult was requested. Patient was on diuretic. Leg elevation maintained, while patient was in the bed. Patient declined increased dose of Lasix. Blood pressure was managed with a BETHANY inhibitor and Lasix. Volumes and renal parameters were closely monitored. Electrolytes corrected as needed. Antiplatelet therapy with aspirin and statin were continued. Toe Puncher recommended to avoid beta-blockers given active use of cocaine at this time. Supplemental oxygen was on board as needed to keep pulse oximetry above 92%. Pulmonary toilet with bronchodilator provided as needed. Patient was counseled on abstinence from illicit street drugs. Yarn Examiner Skeins seen and evaluated patient. Per big data hadoop developer, patient had no evidence of asthma exacerbation. Patient was on routine inhalers /Advair. Yarn Examiner Skeins recommended observe patient off antibiotic and steroid. Incentive spirometry was taught and encouraged every hour while patient in the bed. Patient follows-up with pulmonary clinic at [facility] as outpatient. DVT prophylaxis provided. Yarn Examiner Skeins discussed with patient weight loss diet and exercise. Per big data hadoop developer , patient had a stable respiratory status. Follow-up as outpatient in [facility]. Roller Man followed. Anemia workup revealed evidence of anemia of iron deficiency. On prior admission patient received IV iron. Ferritin 82. Hemoglobin and hematocrit were closely monitored with goal to keep hemoglobin above 7. No evidence of hemolysis. Prior to discharge hemoglobin 10.2, hematocrit 32.6. Roller Man recommended continue outpatient oral iron supplement. Roller Man / oncologist recommended to repeat CT scan in 6-12 months, given multiple small lung nodules. Patient was counseled on abstinence from illicit street drugs. Patient clinically stabilized and was ready for discharge home. FINAL DIAGNOSES: Bilateral lower extremity edema and lymphedema Asthma without evidence of exacerbation CHF with diastolic dysfunction Scattered bilateral subcentimeter pulmonary nodules ( stable on follow-up) Hypertension Hyperlipidemia Likely obstructive sleep apnea Morbid obesity Anemia of iron deficiency Polysubstance abuse with cocaine and marijuana DISCHARGE MEDICATIONS: See Medication Reconciliation list. DISCHARGE INSTRUCTIONS: Patient was discharged home . Follow up with primary care provider in one week. Follow-up with pulmonary clinic at [facility] as outpatient. I have been assigned to dictate discharge summary for this account. I was not involved in the patient's management. Nga Mckee NP Nov 24, 2018 13:03
== END 2018-11-21 11:33 | disposition home or self-care (01) | DRG 194 ==
LOC: EMR 14:39 → 4E 15:06 → EDBEDREQ 15:24
DX: I11.0 Hypertensive heart disease with heart failure (principal); E46 Unspecified protein-calorie malnutrition; J44.9 Chronic obstructive pulmonary disease, unspecified; E66.01 Morbid (severe) obesity due to excess calories; D64.9 Anemia, unspecified; F12.90 Cannabis use, unspecified, uncomplicated; D50.9 Iron deficiency anemia, unspecified; I50.33 Acute on chronic diastolic (congestive) heart failure; F14.10 Cocaine abuse, uncomplicated; G47.33 Obstructive sleep apnea (adult) (pediatric); J45.909 Unspecified asthma, uncomplicated; Z68.1 Body mass index [BMI] 19.9 or less, adult; I87.8 Other specified disorders of veins; I89.0 Lymphedema, not elsewhere classified; Z88.6 Allergy status to analgesic agent; Z88.0 Allergy status to penicillin; R91.8 Other nonspecific abnormal finding of lung field; Z68.37 Body mass index [BMI] 37.0-37.9, adult
CPT/HCPCS: 36415; 71045; 80053; 80307; 81003; 82550; 82728; 83880; 84484; 85007; 85025; 85610; 85730; 87081; 87086; 87181; 93005; 94640; 94664; 96374; 96375; 99285; J2405

== ENCOUNTER 2018-11-27 20:40 | Emergency (ER) | payer MEDICAID ==
[~2018-11-27] VITALS: Ht 182.9 cm; Wt 113.4 kg
[2018-11-27 20:45] VITALS: BP 123/59
--- NOTE | 2018-11-27 20:55 | NUR ---
ED Nurse Note: Pt arrived ED from home. C/o SOB and both legs swollen for 2 days. Pt is A/O X 4. BP 123/ 59, O2 sat 99% on room air. Pt ambulated with walker. Waiting for orders.
--- NOTE | 2018-11-27 21:06 | Emergency Room Report ---
History of Present Illness General Chief Complaint: Dyspnea/Respdistress Source: Patient Present Illness HPI Patient presents with complaints of increased edema in his lower extremities Reports that [facility] have been trying to find out what is causing his symptoms he also has had previous ankle surgery which increases the edema once in a while Denies any chest pain denies any shortness of breath Denies any vomiting or diarrhea patient requesting IV Lasix reports that this worse significantly better for him Denies any focal weakness patient ambulate with a walker Allergies: Coded Allergies: PENICILLINS (Verified Allergy, Unknown, 08/31/17) TRAMADOL (Verified Allergy, Unknown, 08/31/17) Patient History Past Medical History: see triage record Pertinent Family History: none Reviewed Nursing Documentation: PMH: Agreed; PSxH: Agreed Nursing Documentation-PMH Past Medical History: No History, Except For Hx Cardiac Problems: Yes Hx Hypertension: Yes Hx Asthma: Yes Hx COPD: Yes Hx Cancer: No Hx Gastrointestinal Problems: No Hx Neurological Problems: No Review of Systems All Other Systems: negative except mentioned in HPI Physical Exam Vital Signs Date Time Temp Pulse Resp B/P (MAP) Pulse Ox O2 Delivery O2 Flow Rate FiO2 11/27/18 20:50 97.5 76 25 120/58 99 Room Air Sp02 EP Interpretation: reviewed, normal General Appearance: no apparent distress Head: normocephalic, atraumatic Eyes: bilateral eye PERRL, bilateral eye EOMI ENT: hearing grossly normal, normal pharynx Neck: supple Respiratory: lungs clear, no retraction, no accessory muscle use Cardiovascular #1: regular rate, rhythm Gastrointestinal: non tender, soft Musculoskeletal: other - Significant lymphedema bilateral lower extremity, moves upper extremity without focal deficit Neurologic: alert, oriented x3, responsive, crime scene evidence technician III-XII nml as tested Skin: other - Edema as above Lymphatic: other - Swelling bilateral lower extremity Medical Decision Making Diagnostic Impression: Primary Impression: Edema ER Course Patient is a fairly complex patient with multiple differential to consideration including but not limited to cardiac cardiopulmonary and vascular emergencies Patient otherwise has a fairly benign medical evaluation Lung sounds are appropriate Saturating well in no acute distress After receiving IV Lasix Patient now reports that he needs 'Dilaudid' Reports that whenever he comes the hospital he gets this medication Patient had to be awakened on several occasions upon presenting to the room and does not appear in acute distress I discussed with him that I do not feel comfortable prescribing this medication given his evaluation Patient becomes fairly irate in the emergency room yelling and cursing at me and the staff Patient was recommended to follow up closely by his [facility] outpatient clinics that are following him closely Is otherwise stable for disposition home Patient continued to use the 'F' word stated that he will be here tomorrow morning EKG Diagnostic Results Rate: normal Rhythm: NSR ST Segments: no acute changes Rhythm Strip Diag. Results EP Interpretation: yes Rate: 66 Rhythm: NSR, no PVC's, no ectopy Last Vital Signs Date Time Temp Pulse Resp B/P (MAP) Pulse Ox O2 Delivery O2 Flow Rate FiO2 11/27/18 20:50 97.5 76 25 120/58 99 Room Air Status: unchanged Disposition: HOME, SELF-CARE Condition: Stable Additional Instructions: Patient is provided with the discharge instructions notified to follow up with primary doctor in the next 2-3 days otherwise return to the er with any worsening symptoms. Please note that this report is being documented using [employer] technology. This can lead to erroneous entry secondary to incorrect interpretation by the dictating instrument. Brittney Roman DO Nov 27, 2018 21:06
--- NOTE | 2018-11-27 21:39 | NUR ---
ED Nurse Note: Meds given as order.
--- NOTE | 2018-11-27 21:40 | NUR ---
ED Nurse Note: Pt was very agitated and asking for pain Meds and breathing meds, Informed MD.
--- NOTE | 2018-11-27 22:40 | NUR ---
ED Nurse Note: Pt is D/c home and adviced to go back to [facility] for continue care accoding to and DR. Haji's order.
[2018-11-27 23:09] VITALS: BP 123/59
--- NOTE | 2018-11-27 23:09 | NUR ---
ED Nurse Note: Pt is D/c home and adviced to go back to [facility] for continue care accoding to and DR. Haji's order. Pt was refusing to discharge due to pt was a frequently pain medication seaker. IV and ID band removed. Pt is able to ambulate with steady gait and took all belongings.
--- NOTE | 2018-11-27 23:10 | NUR ---
ER DISCHARGE NOTE: Patient is cleared to be discharged per Dr. Roman. Pt Anders/O x4 on room air with stable vital signs. Pt was given D/C instructions but pt refused to sign the d/c paper. Pt's ID band and IV site removed without complications. Pt is able to ambulate with steady gait with his walker and took all belongings.
[2018-11-28] MEDS ORDERED: POTASSIUM CHLO20 ME3 PO (11:31)
[2018-11-28] MEDS ORDERED: TYLENOL325 MG ORAL (16:46)
--- NOTE | 2018-11-28 17:27 | Cardiology Report ---
APPROVED REPORT EKG Measurement Heart [id number] Normal sinus rhythm Normal ECG
== END 2018-11-27 23:09 | disposition home or self-care (01) ==
LOC: EMR 20:59
DX: R60.0 Localized edema (principal); I10 Essential (primary) hypertension; J44.9 Chronic obstructive pulmonary disease, unspecified; Z88.0 Allergy status to penicillin; Z88.6 Allergy status to analgesic agent
CPT/HCPCS: 93005; 96374; 99284; J1940

== ENCOUNTER 2019-12-24 18:12 | Emergency (ER) | payer MEDICARE, MEDICAID ==
[~2019-12-24] VITALS: Ht 188 cm; Wt 127.0 kg
[2019-12-24 18:12] VITALS: BP 134/76
[~2019-12-24 18:12] MED LIST changes: +POTASSIUM CHLO20 ME3 PO; +TYLENOL325 MG ORAL
--- NOTE | 2019-12-24 18:21 | Emergency Room Report ---
History of Present Illness General Chief Complaint: Edema Source: Patient Present Illness HPI 64-year-old male history of bilateral leg edema, history of CHF history of drug- seeking behavior presents with bilateral leg pain that started worsening acutely today patient states she is been having leg swelling denies any chest pain or shortness of breath he states that he was at the store kept walking however he started having sharp aches in his leg, due to the swelling aggravated with movement alleviated with rest severity is moderate, intermittent , no fevers no chills patient was brought in by EMS Allergies: Coded Allergies: PENICILLINS (Verified Allergy, Unknown, 08/31/17) TRAMADOL (Verified Allergy, Unknown, 08/31/17) COVID-19 Screening Contact w/high risk pt: No Recent Travel to affected area: No Experienced COVID-19 symptoms?: No Patient History Past Medical History: see triage record Reviewed Nursing Documentation: PMH: Agreed; PSxH: Agreed Nursing Documentation-PMH Past Medical History: No History, Except For Hx Hypertension: Yes Hx Asthma: Yes Hx COPD: Yes Hx Cancer: No Hx Gastrointestinal Problems: No Hx Neurological Problems: No Review of Systems All Other Systems: negative except mentioned in HPI Physical Exam Vital Signs Date Time Temp Pulse Resp B/P (MAP) Pulse Ox O2 Delivery O2 Flow Rate FiO2 12/24/19 18:06 98.4 88 18 99 Room Air Sp02 EP Interpretation: reviewed, normal General Appearance: well appearing, no apparent distress, alert Head: normocephalic, atraumatic Eyes: bilateral eye PERRL, bilateral eye EOMI ENT: uvula midline, moist mucus membranes Neck: supple, thyroid normal, supple/symm/no masses Respiratory: lungs clear, no respiratory distress, no retraction, no accessory muscle use Cardiovascular #1: normal peripheral pulses, regular rate, rhythm, no edema, no gallop, no JVD, no murmur, edema - 2+ pedal edema Gastrointestinal: non tender, soft, no guarding, no rebound Musculoskeletal: normal inspection Neurologic: alert, oriented x3 Psychiatric: mood/affect normal Skin: no rash, warm/dry Medical Decision Making Diagnostic Impression: Primary Impression: Edema Qualified Codes: R60.9 - Edema, unspecified ER Course 64-year-old male presents with bilateral pedal edema worsening over the past few days acutely worsened over 24 hours states that he was having too much pain while walking denies any shortness of breath or chest pain, patient has no clinical signs of acute decompensated heart failure patient most likely with chronic pedal edema in the setting of low ejection fraction and chronic CHF, patient given 80 of Lasix, labs which show no acute processes, no elevated troponin, chest x-ray shows no evidence of pulmonary edema Disposition home with return precautions follow-up with PCP Laboratory Tests Test 12/24/19 18:31 12/24/19 19:54 White Blood Count 6.9 K/UL (4.8-10.8) Red Blood Count 4.69 M/UL (4.70-6.10) L Hemoglobin 11.5 G/DL (14.2-18.0) L Hematocrit 38.7 % (42.0-52.0) L Mean Corpuscular Volume 82 FL (80-99) Mean Corpuscular Hemoglobin 24.6 PG (27.0-31.0) L Mean Corpuscular Hemoglobin Concent 29.8 G/DL (32.0-36.0) L Red Cell Distribution Width 15.5 % (11.6-14.8) H Platelet Count 159 K/UL (150-450) Mean Platelet Volume 11.5 FL (6.5-10.1) H Neutrophils (%) (Auto) 55.4 % (45.0-75.0) Lymphocytes (%) (Auto) 25.7 % (20.0-45.0) Monocytes (%) (Auto) 9.3 % (1.0-10.0) Eosinophils (%) (Auto) 7.1 % (0.0-3.0) H Basophils (%) (Auto) 2.5 % (0.0-2.0) H Sodium Level 141 MMOL/L (136-145) 144 MMOL/L (136-145) Potassium Level 6.2 MMOL/L (3.5-5.1) *H 4.2 MMOL/L (3.5-5.1) Chloride Level 106 MMOL/L (98-107) 105 MMOL/L (98-107) Carbon Dioxide Level 30 MMOL/L (21-32) 31 MMOL/L (21-32) Anion Gap 5 mmol/L (5-15) 8 mmol/L (5-15) Blood Urea Nitrogen 31 mg/dL (7-18) H 31 mg/dL (7-18) H Creatinine 1.3 MG/DL (0.55-1.30) 1.4 MG/DL (0.55-1.30) H Estimated Glomerular Filtration Rate > 60 mL/min (>60) > 60 mL/min (>60) Glucose Level 97 MG/DL (74-106) 129 MG/DL (74-106) H Calcium Level 9.1 MG/DL (8.5-10.1) 9.4 MG/DL (8.5-10.1) Total Bilirubin 0.3 MG/DL (0.2-1.0) 0.2 MG/DL (0.2-1.0) Aspartate Amino Transferase (AST) 23 U/L (15-37) 17 U/L (15-37) Alanine Aminotransferase (ALT) 24 U/L (12-78) 27 U/L (12-78) Alkaline Phosphatase 74 U/L (46-116) 76 U/L (46-116) Troponin I 0.000 ng/mL (0.000-0.056) Pro-B-Type Natriuretic Peptide 151 pg/mL (0-125) H Total Protein 7.7 G/DL (6.4-8.2) 8.1 G/DL (6.4-8.2) Albumin 3.2 G/DL (3.4-5.0) L 3.4 G/DL (3.4-5.0) Globulin 4.5 g/dL 4.7 g/dL Albumin/Globulin Ratio 0.7 (1.0-2.7) L 0.7 (1.0-2.7) L EKG Diagnostic Results EKG Time: 18:19 EP Interpretation: NSR, rate 75, QTc 406, no acute ST elevations, normal axis Rhythm Strip Diag. Results Rhythm Strip Time: 21:00 EP Interpretation: yes Rate: 87 Rhythm: NSR, no PVC's, no ectopy Chest X-Ray Diagnostic Results Chest X-Ray Diagnostic Results : Chest X-Ray Ordered: Yes # of Views/Limited/Complete: 1 View Indication: Shortness of Breath EP Interpretation: Yes Interpretation: no consolidation, no effusion, no pneumothorax, no acute cardiopulmonary disease Impression: No acute disease Electronically Signed by: Ranulfo Merino MD Last Vital Signs Date Time Temp Pulse Resp B/P (MAP) Pulse Ox O2 Delivery O2 Flow Rate FiO2 12/24/19 18:06 98.4 88 18 99 Room Air Disposition: HOME, SELF-CARE Condition: Stable Referrals: [facility] Varghese [facility]. [facility] Patient Instructions: Edema, [id number] Additional Instructions: The patient was provided with discharge instructions, notified to follow-up with a primary care doctor and or specialist in the next 24-48 hours, and to return to the ED if they have worsening of their symptoms. Please note that this report is being documented using [employer] technology. This can lead to erroneous entry secondary to incorrect interpretation by the dictating instrument. YOU MAY NEED TO INCREASE LASIX TO HELP OFFSET THE FLUID RETENTION IN YOUR LEGS PLEASE CONTACT YOUR PCP AND CHANGE YOUR DOSES WITH YOUR PCP'S PERMISSION Ranulfo Merino MD December 24, 2019 18:21
[2019-12-24 18:42] LABS: BASOPHILS % (AUTO) 2.5 % (0.0-2.0); EOSINOPHILS % (AUTO) 7.1 % (0.0-3.0); HEMATOCRIT 38.7 % (42.0-52.0); HEMOGLOBIN 11.5 G/DL (14.2-18.0); LYMPHOCYTES % (AUTO) 25.7 % (20.0-45.0); MEAN CORPUSCULAR VOLUME 82 FL (80-99); MONOCYTES % (AUTO) 9.3 % (1.0-10.0); NEUTROPHILS % (AUTO) 55.4 % (45.0-75.0); PLATELET COUNT 159 K/UL (150-450); RED BLOOD COUNT 4.69 M/UL (4.70-6.10); RED CELL DISTRIBUTION WIDTH 15.5 % (11.6-14.8); WHITE BLOOD COUNT 6.9 K/UL (4.8-10.8)
[2019-12-24 19:08] LABS: ALANINE AMINOTRANSFERASE 24 U/L (12-78); ALBUMIN 3.2 G/DL (3.4-5.0); ALBUMIN/GLOBULIN RATIO 0.7 (1.0-2.7); ALKALINE PHOSPHATASE 74 U/L (46-116); ANION GAP 5 mmol/L (5-15); ASPARTATE AMINO TRANSFERASE 23 U/L (15-37); BILIRUBIN,TOTAL 0.3 MG/DL (0.2-1.0); BLOOD UREA NITROGEN 31 mg/dL (7-18); CALCIUM 9.1 MG/DL (8.5-10.1); CARBON DIOXIDE 30 MMOL/L (21-32); CHLORIDE 106 MMOL/L (98-107); CREATININE 1.3 MG/DL (0.55-1.30); SODIUM 141 MMOL/L (136-145)
[2019-12-24 19:10] LABS: POTASSIUM 6.2 MMOL/L (3.5-5.1)
[2019-12-24] MEDS ORDERED: Acetaminophen 500mg (ES) tab ORAL ONE (19:30)
[2019-12-24 20:35] LABS: ANION GAP 8 mmol/L (5-15); BLOOD UREA NITROGEN 31 mg/dL (7-18); CALCIUM 9.4 MG/DL (8.5-10.1); CARBON DIOXIDE 31 MMOL/L (21-32); CHLORIDE 105 MMOL/L (98-107); CREATININE 1.4 MG/DL (0.55-1.30); POTASSIUM 4.2 MMOL/L (3.5-5.1); SODIUM 144 MMOL/L (136-145)
[2019-12-24 20:40] LABS: ALANINE AMINOTRANSFERASE 27 U/L (12-78); ALBUMIN 3.4 G/DL (3.4-5.0); ALBUMIN/GLOBULIN RATIO 0.7 (1.0-2.7); ALKALINE PHOSPHATASE 76 U/L (46-116); ASPARTATE AMINO TRANSFERASE 17 U/L (15-37); BILIRUBIN,TOTAL 0.2 MG/DL (0.2-1.0)
[2019-12-24 21:34] VITALS: BP 140/57
[2019-12-24 22:00] VITALS: BP 140/57
--- NOTE | 2019-12-25 09:01 | Diagnostic Imaging Report ---
Indication: Reason For Exam: SOB Technique: One view of the chest Comparison: 11/28/2018 Findings: The lungs and pleural spaces are clear. The heart size is normal. No significant interim change Impression: No acute process
== END 2019-12-24 22:00 | disposition home or self-care (01) ==
LOC: EDBD 18:12 → EMR 18:25
DX: R60.0 Localized edema (principal); I10 Essential (primary) hypertension; J44.9 Chronic obstructive pulmonary disease, unspecified; J45.909 Unspecified asthma, uncomplicated; Z88.0 Allergy status to penicillin; Z88.5 Allergy status to narcotic agent
CPT/HCPCS: 36415; 71045; 80053; 83880; 84484; 85025; 93005; 96374; 99284; J1940